=== PATIENT | female | born 1950 | race Caucasian/White ===

== ENCOUNTER 2020-09-27 15:00 | Outpatient (RCR) | payer MEDICARE, SELFPAY ==
--- NOTE | 2020-06-21 18:58 | ED_ITS ---
HPI - Psych General Source: patient and old records reviewed Mode of arrival: other (Telehealth OP appt.) Limitations: physical limitation (mobility, respiratory) History of Present Illness HPI Narrative: 70 yo female, hx of PTSD, Recurrent Major Depression, Severe. Pt sober from alcohol, cannabis for decades with a hx of strong participation in AA. Currently struggling with physical illness, knee pain, mobility issues. MD complaint: anxiety (worry about medical symptoms) Onset (ago): year(s) (issues with joint pain, mobility for several years.) Duration: changing over time Relieving factors: medication and therapy Exacerbating factors: other (stress) Associated psychiatric symptoms: depression Associated symptoms: shortness of breath, insomnia and other (reversal of her sleep cycle) Related Data Home Medications Medication Instructions Recorded Confirmed acetaminophen [Arthritis Pain mg PO 06/21/20 Relief (acetam)] albuterol sulfate 2 puff PO Q4H PRN 06/21/20 06/21/20 aspirin 1 tab PO DAILY 06/21/20 06/21/20 bupropion HCl tab PO 06/21/20 carvedilol 1 tab PO BID 06/21/20 06/21/20 cholecalciferol (vitamin D3) 1 tab PO DAILY 06/21/20 06/21/20 [Vitamin D3] fluticasone propion-salmeterol 2 puff PO BID 06/21/20 06/21/20 [Advair HFA] fluvoxamine 1 tab PO DAILY 06/21/20 06/21/20 ketoconazole applic TOPICAL 06/21/20 levothyroxine 1 tab PO DAILY 06/21/20 06/21/20 losartan 1 tab PO DAILY 06/21/20 06/21/20 montelukast 1 tab PO BEDTIME 06/21/20 06/21/20 prazosin 1 cap PO BID 06/21/20 06/21/20 rosuvastatin 1 tab PO DAILY 06/21/20 06/21/20 umeclidinium [Incruse Ellipta] 1 puff PO DAILY 06/21/20 06/21/20 Allergies Allergy/AdvReac Type Severity Reaction Status Date / Time lisinopril [LISINOPRIL] Allergy Intermediate RASH Unverified 06/07/20 16:18 quetiapine [From SEROQUEL] Allergy Intermediate RASH Unverified 06/07/20 16:18 sertraline [From ZOLOFT] Allergy Intermediate RASH, Unverified 06/07/20 16:18 DIZZINESS loratadine [From CLARITIN] Allergy Mild UNKNOWN Unverified 06/07/20 16:18 methimazole [From TAPAZOLE] Allergy Mild RASH Unverified 06/07/20 16:18 furosemide [Lasix] Allergy Unknown Verified 08/20/18 00:00 potassium chloride Allergy Unknown Verified 08/20/18 00:00 propranolol [PROPRANOLOL] AdvReac Severe anergy Unverified 06/07/20 16:18 Pt states no known food Allergy Unknown Uncoded 08/20/18 00:00 allerg Review of Systems Constitutional: Constitutional: Reports body ache(s) (Right leg-knee to calf), Reports difficulty sleeping (at times reverses cycle-sleeps during the day, awake at night), Reports poor appetite and Reports weight gain Cardiovascular: Cardiovascular: Reports claudication, Reports dyspnea and Reports dyspnea on exertion Respiratory: Respiratory: Reports dyspnea and Reports dyspnea on exertion Musculoskeletal: Musculoskeletal: Reports abnormal gait, Reports arthralgias (R Leg-knee to calf) and Reports stiffness Neurologic: Reports system reviewed and no additional complaints, except as documented and Reports abnormal gait Psychiatric: Psychiatric: Reports abnormal sleep pattern, Reports change in appetite and Reports other (R leg pain) [facility], [facility] Past Medical History Attestation statement: The following information was validated with the patient. Family History Family History (Updated 06/21/20 @ 19:48 by Nathalia Corrigan APRN) Other Depression Social History Social History (Updated 06/21/20 @ 19:49 by Nathalia Corrigan APRN) Household Members Other:: Lives with her cat Housing: Apartment Are you a primary customer care manager to a significant other at home: No Do you presently have visiting nurse or other home services: Yes Alcohol intake: former Smoking Status: Former smoker Tobacco Type: Cigarette Smoked in Last 30 Days: No Advance Directives: No Advance Directives Information Provided: No Physical Exam Vital Signs and I&O and Narrative: Sharon has been working with her medical team on her breathing and R Leg Pain (knee to calf). She reports PCP coverage has scheduled an echocardiogram. Also Meloxicam and Ibuprofen have been stopped due to CRF earlier this year Psych: Mental Status: mental status grossly normal Speech and movement: Clear speech present Affect: Blunted affect present Attitude: cooperative Thought process: Normal thought process present Thought content: Normal thought content present Insight: Good insight present (Psych) Judgement: Good judgement present (Psych) MDM - Psych Restraints Face to Face Assessment: Face to Face Assessment: Current Situation: After assessment of the patient, a review of the pertinent medical record and a discussion with nursing staff, I feel the patient requires a restrain intervention. Reaction To: [] Medical Condition: [] Behavioral State: [] Continued Need: [] Critical Care Time Critical Care Time Critical Care Time: No Discharge Plan Discharge Attending provider: Nathalia Corrigan Additional Instructions: Continue Wellbutrin, Prazosin, Luvox. Pt reports regime is useful in sx mgt. She reports no sx of depression increase. Sleep disturbance is mostly due to pain and discomfort. Follow up in 4 weeks-telehealth appt Call as needed. Current focus is respiratory eval and joint pain mgt. Medications: No Action carvedilol 25 mg tablet 1 tab PO BID RF: 0 acetaminophen [Arthritis Pain Relief (acetam)] 650 mg tablet extended release PO RF: 0 fluvoxamine 100 mg tablet 1 tab PO DAILY RF: 0 aspirin 81 mg tablet,chewable 1 tab PO DAILY RF: 0 montelukast 10 mg tablet 1 tab PO BEDTIME RF: 0 albuterol sulfate 90 mcg/actuation HFA aerosol inhaler 2 puff PO Q4H PRN (Reason: wheezing) RF: 0 ketoconazole 2 % cream topical RF: 0 losartan 100 mg tablet 1 tab PO DAILY RF: 0 prazosin 2 mg capsule 1 cap PO BID RF: 0 levothyroxine 112 mcg tablet 1 tab PO DAILY RF: 0 rosuvastatin 5 mg tablet 1 tab PO DAILY RF: 0 bupropion HCl 300 mg tablet extended release 24 hr PO RF: 0 Advair HFA 230-21 mcg/actuation HFA aerosol inhaler 2 puff PO BID RF: 0 cholecalciferol (vitamin D3) [Vitamin D3] 25 mcg (1,000 unit) tablet 1 tab PO DAILY RF: 0 Incruse Ellipta 62.5 mcg/actuation blister with device 1 puff PO DAILY RF: 0
--- NOTE | 2020-07-31 16:01 | HO.OPPROGNO ---
Subjective Subjective Date of Service: 07/31/20 Reason For Visit: F33.2, F43.10 Interim History: Pt is s/p medical admit for chest pain-she reports she checked out negative-heart, lungs. She reports they told her she had anxiety secondary to worry about COVID. Currently on Prednisone taper with obvious congestion. Pt has not been participating in psychotherapy for ~ 4 weeks-she does not find telehealth format helpful for psychotherapy. Pt is working with a emergency room clinician, finding it useful Reports depressive sx increase for ~3 weeks-not going out, amotivated, staying in bed-denies a precipitant, along with anxiety. Medication Compliance: Yes Side effects from medications: No Attending Groups: No (NA) Review of Systems Cardiovascular: Reports dyspnea and Reports dyspnea on exertion Respiratory: Reports chest congestion, Reports cough, Reports dyspnea, Reports dyspnea on exertion and Reports wheezing Comments: currently on Prednisone taper. Musculoskeletal: Reports abnormal gait Reports system reviewed and no additional complaints, except as documented and Reports abnormal gait Allergic/Immunologic: Reports wheezing Mental Status Exam Mental Status Exam Patient Orientation: Person, Place, Time and Situation Level of Consciousness: Awake, Appropriate and Alert Patient Behavior: Appropriate Mood Description: Depressed and Flat Affect Description: Flat Patient Cognition Impaired: No Ability to Follow Directions: Excellent Speech Pattern: Clear, Appropriate and Spontaneous Speech Memory Description: Intact Hallucinations: None Delusions: Not Present Thought Process: Intact Thought Content: positive for Intact Depressive Symptoms: Changes in Appetite, Sleeping More Than Usual, Loss of Int. in Activity, Feelings of Worthlessness, Hopelessness, Isolating-Friends/Family, Unhappiness, Increased Fatigue, Low Self Esteem and Loss of Energy Judgement: Fair Diagnostics Labs Labs: recent in pt medical stay 07/27- she reports with all diagnostics negative. Discharge Plan Discharge Attending provider: Nathalia Corrigan Additional Instructions: Continue Wellbutrin, Prazosin, Luvox. Pt reports regime is useful in sx mgt. She reports no sx of depression increase. Sleep disturbance is mostly due to pain and discomfort. Follow up in 4 weeks-telehealth appt Call as needed. Current focus is respiratory eval and joint pain mgt. 07/31/20: Increase fluvoxamine to 150 mg daily Re-start Abilify 2 mg daily Medications: New aripiprazole [Abilify] 2 mg tablet 2 mg PO DAILY Qty: 30 RF: 0 Continued prazosin 2 mg capsule 1 cap PO BID Qty: 180 RF: 0 No Action carvedilol 25 mg tablet 1 tab PO BID RF: 0 acetaminophen [Arthritis Pain Relief (acetam)] 650 mg tablet extended release PO RF: 0 fluvoxamine 100 mg tablet 1 tab PO DAILY RF: 0 aspirin 81 mg tablet,chewable 1 tab PO DAILY RF: 0 montelukast 10 mg tablet 1 tab PO BEDTIME RF: 0 albuterol sulfate 90 mcg/actuation HFA aerosol inhaler 2 puff PO Q4H PRN (Reason: wheezing) RF: 0 ketoconazole 2 % cream topical RF: 0 losartan 100 mg tablet 1 tab PO DAILY RF: 0 levothyroxine 112 mcg tablet 1 tab PO DAILY RF: 0 rosuvastatin 5 mg tablet 1 tab PO DAILY RF: 0 bupropion HCl 300 mg tablet extended release 24 hr PO RF: 0 Advair HFA 230-21 mcg/actuation HFA aerosol inhaler 2 puff PO BID RF: 0 cholecalciferol (vitamin D3) [Vitamin D3] 25 mcg (1,000 unit) tablet 1 tab PO DAILY RF: 0 Incruse Ellipta 62.5 mcg/actuation blister with device 1 puff PO DAILY RF: 0 Assessment & Plan Patient educated on: medication risk/benefits and therapeutic strategies Informed Consent: further education needed Reason for contiued therapy Substantial Risk for: med/psych decompensation Greater than 50% of the session was spent on counseling and/or coordination of care
--- NOTE | 2020-08-30 16:28 | P.PNPSO_ITS ---
Subjective Subjective Date of Service: 08/31/20 Reason For Visit: F33.2, F43.10 Interim History: Sharon reports sx are improved with addition of Abilify 2 mg daily. 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 Reports medical issues she is struggling with-bilateral pedal edema, and SOB with exertion-etiology not known, workup is negative thus far. She has had two sets of labs with her renal specialist and with her specialty development consultant and reports all are essentially WNL with exception of Creatinine of 1.2. Reports she has a new therapist and this is working well for her. Discussed concerns about her sister who has had an exac erbation of her PTSD and is refusing treatment Medication Compliance: Yes Side effects from medications: No Attending Groups: No (NA) Review of Systems Cardiovascular: Reports pedal edema (bilateral pedal edema) and Reports dyspnea on exertion Respiratory: Reports dyspnea on exertion Musculoskeletal: Reports abnormal gait Reports system reviewed and no additional complaints, except as documented and Reports abnormal gait Psychiatric: Reports no additional psychiatric complaints and Reports as per [facility] Mental Status Exam Mental Status Exam Patient Appearance: Well Grooomed and Appropriate Patient Orientation: Person, Place, Time and Situation Level of Consciousness: Awake, Appropriate and Alert Patient Behavior: Appropriate Mood Description: Calm Affect Description: Flat Patient Cognition Impaired: No Speech Pattern: Clear, Appropriate, Spontaneous Speech and Coherent Memory Description: Intact Hallucinations: None Delusions: Not Present Thought Process: Intact Thought Content: positive for Intact Depressive Symptoms: Changes in Appetite and Increased Fatigue Judgement: Good Diagnostics Labs Labs: Creatinine 1.2 per pt reports. Reports two sets of labs this week were essentially normal. Discharge Plan Discharge Attending provider: Nathalia Corrigan Additional Instructions: Continue Wellbutrin, Prazosin, Luvox. Pt reports regime is useful in sx mgt. She reports no sx of depression increase. Sleep disturbance is mostly due to pain and discomfort. Follow up in 4 weeks-telehealth appt Call as needed. Current focus is respiratory eval and joint pain mgt. 07/31/20: Increase fluvoxamine to 150 mg daily Re-start Abilify 2 mg daily Medications: New fluvoxamine 100 mg tablet 150 mg PO BEDTIME Qty: 135 RF: 0 Continued prazosin 2 mg capsule 1 cap PO BID Qty: 180 RF: 0 aripiprazole [Abilify] 2 mg tablet 2 mg PO DAILY Qty: 90 RF: 0 Changed bupropion HCl 300 mg tablet extended release 24 hr 1 tab PO DAILY Qty: 90 RF: 0 Discontinued fluvoxamine 100 mg tablet 1 tab PO DAILY RF: 0 No Action carvedilol 25 mg tablet 1 tab PO BID RF: 0 acetaminophen [Arthritis Pain Relief (acetam)] 650 mg tablet extended release PO RF: 0 aspirin 81 mg tablet,chewable 1 tab PO DAILY RF: 0 montelukast 10 mg tablet 1 tab PO BEDTIME RF: 0 albuterol sulfate 90 mcg/actuation HFA aerosol inhaler 2 puff PO Q4H PRN (Reason: wheezing) RF: 0 ketoconazole 2 % cream topical RF: 0 losartan 100 mg tablet 1 tab PO DAILY RF: 0 levothyroxine 112 mcg tablet 1 tab PO DAILY RF: 0 rosuvastatin 5 mg tablet 1 tab PO DAILY RF: 0 Advair HFA 230-21 mcg/actuation HFA aerosol inhaler 2 puff PO BID RF: 0 cholecalciferol (vitamin D3) [Vitamin D3] 25 mcg (1,000 unit) tablet 1 tab PO DAILY RF: 0 Incruse Ellipta 62.5 mcg/actuation blister with device 1 puff PO DAILY RF: 0 Assessment & Plan Assessment & Plan (1) Recurrent major depression-severe: Status: Acute Code(s): F33.2 - Major depressive disorder, recurrent severe without psychotic features Assessment and Plan: - Continue current regime. - Discussed clinic closing-pt will discuss psychopharmacology referral with her new therapist to maintain continuity. (2) PTSD (post-traumatic stress disorder): Status: Acute Code(s): F43.10 - Post-traumatic stress disorder, unspecified Greater than 50% of the session was spent on counseling and/or coordination of care Telehealth Telehealth Location of provider rendering services: practice address Location of patient: address on file Patient Identification confirmed using: Name, : Yes Telehealth method: video Patient verbally consented to treatment: Yes Patient verbally consented to billing insurance company: Yes Patient informed of any privacy concerns related to visit: Yes Time spent with patient (mins): 35
--- NOTE | 2020-09-06 08:23 | P.EN_ITS ---
Event Note Date of Service: 09/06/20 Event Note: [place] [facility] [place] She will begin to discuss options with her therapist and insurance provider.
--- NOTE | 2020-09-06 08:23 | PM.EVENT ---
Event Note Date of Service: 09/06/20 Event Note: Pt notified of [facility] [place] clinic closing on 08/30/20. She will begin to discuss options with her therapist and insurance provider.
== END 2020-11-18 23:55 | disposition home or self-care (01) ==
LOC: HO.PAOS 15:00
PROVIDERS: Visit Provider Clinical Nurse Specialist Psychiatric/Mental Health, Adult
DX: F33.2 Major depressive disorder, recurrent severe without psychotic features (principal); F43.10 Post-traumatic stress disorder, unspecified; Z79.899 Other long term (current) drug therapy
CPT/HCPCS: 99213; 99214

== ENCOUNTER 2022-02-19 13:48 | Emergency (ER) | payer MEDICARE, SELFPAY ==
--- NOTE | ~2022-02-19 | XR_ITS ---
EXAMINATION: XR CHEST CLINICAL INFORMATION: Weakness. COMPARISON: Chest x-ray 08/06/2018 TECHNIQUE: Frontal portable view of the chest was obtained. 2:29 PM FINDINGS: Low inspiratory effort. This causes crowding of the bronchovascular markings. Allowing for the low inspiratory effort there is no significant pulmonary vascular congestion. No focal consolidation. There is no pleural effusion and no pneumothorax. XR/XR chest 1V IMPRESSION: No acute abnormality of chest.
--- NOTE | ~2022-02-19 | CT_ITS ---
EXAMINATION: CT ABDOMEN AND PELVIS WITHOUT CONTRAST CLINICAL INFORMATION: Left lower quadrant pain COMPARISON: None TECHNIQUE: Multidetector volumetric imaging was performed from the superior aspect of the liver through the pubic symphysis. Sagittal and coronal reformatted images were obtained on the technologist's workstation. This CT examination was performed using dose optimization techniques as appropriate, variously including the following: *Automated exposure control *Adjustment of mA and/or kV according to patient size (this includes techniques or standardized protocols for targeted exams where dose is matched to indication/reason for exam; i.e. extremities or head) *Use of iterative reconstruction technique DLP: 1357 mGy-cm FINDINGS: LUNG BASES: The visualized lung bases are unremarkable. Bibasilar atelectasis is present. Left hemidiaphragm is elevated. LIVER, GALLBLADDER, AND BILIARY TREE: The liver is normal in size, shape, and attenuation. No focal hepatic lesion or biliary ductal dilatation is present. The gallbladder is unremarkable with no evidence of radiopaque gallstones, gallbladder wall thickening, or obvious pericholecystic inflammatory changes. PANCREAS: Unremarkable. SPLEEN: Unremarkable. ADRENAL GLANDS: Unremarkable. KIDNEYS AND URETERS: The kidneys are normal in size, shape, and attenuation. No hydronephrosis, hydroureter, or calculi seen. There is a 2.3 cm mass present in the lower pole of the right kidney which measures fat density although I do not think that this is accurate and this most likely represents a cyst. The worrisome renal mass. BLADDER: Unremarkable. GASTROINTESTINAL TRACT: The small and large bowel are unremarkable aside from colonic diverticula without diverticulitis. The appendix is unremarkable. ABDOMINAL WALL: No significant hernia is appreciated. LYMPH NODES: Normal. VASCULAR: Unremarkable. PELVIC VISCERA: An anteverted uterus is present with calcifications consistent with old fibroids. An abnormal adnexal mass tibial fluid is not seen. OSSEOUS STRUCTURES: Mild degenerative changes present in the spine. No bony destructive lesions are seen. CT/CT abdomen pelvis wo con IMPRESSION: A cause for the patient's acute left lower quadrant pain has not been found. There is colonic diverticulosis without diverticulitis. Other incidental findings as above. Fleischner guidelines were followed.
[2022-02-19 14:08] VITALS: BP 195/85; PULSE 100; PULSE 105; RESP 19; TEMP 37.2; O2SAT 92; O2SAT 95; BMI 54.0
--- NOTE | 2022-02-19 14:22 | ECG_ITS ---
Test Reason : WEAKNESS Blood Pressure : / mmHG Vent. Rate : 099 BPM Atrial Rate : 099 BPM P-R Int : 196 ms QRS Dur : 102 ms QT Int : 356 ms P-R-T Axes : 062 017 030 degrees QTc Int : 456 ms Normal sinus rhythm Possible Left atrial enlargement Borderline ECG When compared with ECG of 07-AUG-2018 07:41, No significant change was found Referred By: Edgar Mendoza Electronically Signed By:JHON BOSE MD
--- NOTE | 2022-02-19 14:24 | ED_ITS ---
HPI - General Adult General Chief complaint: General Medical Stated complaint: Dizziness with weakness Time Seen by Provider: 02/19/22 14:08 Source: patient and old records reviewed History of Present Illness HPI narrative: Patient states for the last 2 days she has been having general malaise. She states nausea with vomiting yesterday. Some nausea this morning. No diarrhea. Positive cough. Feels congested but not bringing up phlegm. No documented fevers but has been feeling hot. No sick contacts She is vaccinated with Moderna x 4 against COVID. She has had her annual flu vaccine. No prior history of similar issues. She states she has been feeling dizzy. She describes it as lightheaded. It is not particularly affected by movement or standing. No syncope. No sensation of room spinning or balance issues. Related Data Home Medications Medication Instructions Recorded Confirmed acetaminophen 650 mg mg PO 06/21/20 tablet,extended release (Arthritis Pain Relief (acetaminophen) ER) albuterol sulfate 90 mcg/actuation 2 puff PO Q4H PRN 06/21/20 06/21/20 aerosol inhaler aspirin 81 mg chewable tablet 1 tab PO DAILY 06/21/20 06/21/20 carvedilol 25 mg tablet 1 tab PO BID 06/21/20 06/21/20 cholecalciferol (vitamin D3) 25 1 tab PO DAILY 06/21/20 06/21/20 mcg (1,000 unit) tablet (Vitamin D3) fluticasone propionate 230 2 puff PO BID 06/21/20 06/21/20 mcg-salmeterol 21 mcg/actuation HFA inhaler (Advair HFA) ketoconazole 2 % topical cream applic TOPICAL 06/21/20 levothyroxine 112 mcg tablet 1 tab PO DAILY 06/21/20 06/21/20 losartan 100 mg tablet 1 tab PO DAILY 06/21/20 06/21/20 montelukast 10 mg tablet 1 tab PO BEDTIME 06/21/20 06/21/20 rosuvastatin 5 mg tablet 1 tab PO DAILY 06/21/20 06/21/20 umeclidinium 62.5 mcg/actuation 1 puff PO DAILY 06/21/20 06/21/20 blister powder for inhalation (Incruse Ellipta) Previous Rx's Medication Instructions Recorded bupropion HCl 300 mg 24 hr tablet, 1 tab PO DAILY #90 tab 10/22/20 extended release fluvoxamine 100 mg tablet 150 mg PO BEDTIME #135 tab 10/22/20 aripiprazole 2 mg tablet (Abilify) 2 mg PO DAILY #90 tab 11/07/20 hydroxyzine HCl 50 mg tablet 50 mg PO DAILY PRN #90 tab 12/17/20 fluconazole 150 mg tablet 150 mg PO DAILY #1 tab 02/19/22 (Diflucan) potassium chloride 10 mEq 10 meq PO DAILY #10 tab 02/19/22 tablet,extended release Allergies Allergy/AdvReac Type Severity Reaction Status Date / Time lisinopril [LISINOPRIL] Allergy Intermediate RASH Unverified 06/07/20 16:18 quetiapine [From SEROQUEL] Allergy Intermediate RASH Unverified 06/07/20 16:18 sertraline [From ZOLOFT] Allergy Intermediate RASH, Unverified 06/07/20 16:18 DIZZINESS loratadine [From CLARITIN] Allergy Mild UNKNOWN Unverified 06/07/20 16:18 methimazole [From TAPAZOLE] Allergy Mild RASH Unverified 06/07/20 16:18 furosemide [Lasix] Allergy Unknown Verified 08/20/18 00:00 potassium chloride Allergy Unknown Verified 08/20/18 00:00 propranolol [PROPRANOLOL] AdvReac Severe anergy Unverified 06/07/20 16:18 Pt states no known food Allergy Unknown Uncoded 08/20/18 00:00 allerg Review of Systems Constitutional: Comments: Feeling hot without documented fevers. Generally weak. Respiratory: Comments: Cough without sputum Gastrointestinal: Comments: Nausea and vomiting without diarrhea. No abdominal pain Genitourinary: Comments: No urinary symptoms Integumentary/Breasts: Comments: No new rash. History of cutaneous candidiasis and folds of the pannus Neurologic: Comments: No focal weakness. She states she typically ambulates with a walker and is still able ambulate today even with the weakness sensation PMFSH Past Medical History Medical History (Updated 02/19/22 @ 20:27 by Edgar Mendoza MD) PTSD (post-traumatic stress disorder) Recurrent major depression-severe Family History Family History (Updated 06/21/20 @ 19:48 by Nathalia Vaughn APRN) Other Depression Social History Social History (Updated 06/21/20 @ 19:49 by MARK Ramos Household Members Other:: Lives with her cat Housing: Apartment Are you a primary respiratory care instructor to a significant other at home: No Do you presently have visiting nurse or other home services: Yes Alcohol intake: former Advance Directives: No Advance Directives Information Provided: Yes Physical Exam ED Vital Signs: Vital Signs - 24 hr 02/19/22 14:08 02/19/22 15:45 02/19/22 16:18 Temperature 98.9 F 98.2 F Pulse Rate 105 H 103 H 101 H Respiratory Rate 19 15 15 Blood Pressure 195/85 H 141/74 H 122/62 Pulse Oximetry 95 96 96 BMI result Body Mass Index 54.0 Const Other: Awake and alert in no acute distress Resp Other: No respiratory distress. Clear and equal bilaterally Cardio Other: Regular rhythm. Mildly tachycardic. No murmurs rubs or gallops GI Other: Abdomen is soft and nontender. Normal bowel sounds Skin Other: Warm pink and dry. Rash consistent with cutaneous candidiasis in skin folds and groin and sub pannus Neuro Other: No focal neurologic deficits. No facial droop. No pronator drift. Speech is normal Course Course Course Narrative: Generalized weakness in the setting of cough with nausea and vomiting. Likely viral syndrome. Possible dehydration COVID-19 infection or influenza both possible. Will treat IV fluids. IV Zofran. Patient with continued abdominal pain. On re-evaluation she is now tender mostly in her left mid to low abdomen. CT scan added 20:25. Patient's CT scan is normal. Remainder of labs are relatively unremarkable. Potassium is mildly low at 3.2. Creatinine is 1.13. LFTs are normal. TSH is elevated at 6.99 but T4 is normal at 1.34. Patient is feeling better at this time. Tolerating p.o. liquids. Stable for discharge home with a final diagnosis of viral syndrome, cutaneous candidiasis, hypokalemia Medical Decision Making Lab Data Result diagrams: 02/19/22 14:56 02/19/22 19:10 Labs: Lab Results 02/19/22 02/19/22 02/19/22 Range/Units 14:55 14:55 14:55 WBC (4.8-10.8) X10*3/uL RBC (4.20-5.50) X10*6/uL Hgb (12.0-16.0) g/dl Hct (37.0-47.0) % MCV (80.0-98.0) fL MCH (27.0-33.0) pg MCHC (31.0-35.0) g/dl RDW (11.0-16.0) % Plt Count (160-400) X10*3/uL MPV (9.4-12.3) fL Immature Gran % (Auto) (0.0-0.4) % Neut % (Auto) (45-73) % Lymph % (Auto) (20-40) % [place] % (Auto) (2-11) % Eos % (Auto) (0-4) % Baso % (Auto) (0-2) % Lymph # (Auto) (1.2-4.9) X10*3/uL [place] # (Auto) (0.1-1.2) X10*3/uL Eos # (Auto) (0.0-0.4) X10*3/uL Baso # (Auto) (0.0-0.2) X10*3/uL Abs Immat Gran (auto) (0.00-0.03) X10*3/uL Absolute Neuts (auto) (2.0-8.3) x10*3/uL Absolute Nucleated RBC (0.0-0.012) X10*3/uL Nucleated RBC % (auto) (0.0-0.2) /100WBC D-Dimer High Sensitivty 342 NG/ML Sodium (135-145) mmol/L Potassium (3.3-5.1) mmol/L Chloride (96-108) mmol/L Carbon Dioxide (22-29) mmol/L Anion Gap (12-20) BUN (9-16) mg/dL Creatinine (0.5-1.4) mg/dL Estim Creat Clear Calc Estimated GFR Random Glucose (60-115) mg/dL Lactic Acid 1.4 (0.5-2.0) mmol/L Calcium (8.4-10.2) mg/dL Total Bilirubin (0.0-1.0) mg/dL AST (5-31) U/L ALT (0-31) U/L Alkaline Phosphatase (39-117) U/L Troponin I High Sens (<3.5-17.0) ng/L B-Natriuretic Peptide (<100) pg/mL Total Protein (6.5-8.0) g/dL Albumin (3.5-5.0) g/dL Lipase 44 (8-78) U/L TSH 6.99 H (0.32-4.0) uIU/mL Free T4 1.34 (0.71-1.85) ng/dL Urine Color Urine Appearance Urine pH (5.0-8.0) Ur Specific [place] (1.005-1.025) Urine Protein (NEG-TRACE) MG/DL Urine Glucose (UA) (NEG) MG/DL Urine Ketones (NEG) MG/DL Urine Blood (NEG) Urine Nitrite (NEG) Ur Leukocyte Esterase (NEG) Urine RBC (0) /HPF Urine WBC (0-4) /HPF Ur Squamous Epith Cells /LPF Urine Bacteria /LPF Influenza Type A (PCR) (Negative) Influenza Type B (PCR) (Negative) RSV RNA Qual (PCR) (Negative) SARS-CoV-2 RNA (RT-PCR) (Negative) 02/19/22 02/19/22 02/19/22 Range/Units 14:56 14:56 15:05 WBC 7.1 (4.8-10.8) X10*3/uL RBC 5.41 (4.20-5.50) X10*6/uL Hgb 14.5 (12.0-16.0) g/dl Hct 45.4 (37.0-47.0) % MCV 83.9 (80.0-98.0) fL MCH 26.8 L (27.0-33.0) pg MCHC 31.9 (31.0-35.0) g/dl RDW 14.2 (11.0-16.0) % Plt Count 244 (160-400) X10*3/uL MPV 11.2 (9.4-12.3) fL Immature Gran % (Auto) 0.4 (0.0-0.4) % Neut % (Auto) 72.1 (45-73) % Lymph % (Auto) 17.0 L (20-40) % [place] % (Auto) 7.9 (2-11) % Eos % (Auto) 2.0 (0-4) % Baso % (Auto) 0.6 (0-2) % Lymph # (Auto) 1.2 (1.2-4.9) X10*3/uL [place] # (Auto) 0.6 (0.1-1.2) X10*3/uL Eos # (Auto) 0.1 (0.0-0.4) X10*3/uL Baso # (Auto) 0.0 (0.0-0.2) X10*3/uL Abs Immat Gran (auto) 0.03 (0.00-0.03) X10*3/uL Absolute Neuts (auto) 5.1 (2.0-8.3) x10*3/uL Absolute Nucleated RBC 0.000 (0.0-0.012) X10*3/uL Nucleated RBC % (auto) 0.0 (0.0-0.2) /100WBC D-Dimer High Sensitivty NG/ML Sodium (135-145) mmol/L Potassium (3.3-5.1) mmol/L Chloride (96-108) mmol/L Carbon Dioxide (22-29) mmol/L Anion Gap (12-20) BUN (9-16) mg/dL Creatinine (0.5-1.4) mg/dL Estim Creat Clear Calc Estimated GFR Random Glucose (60-115) mg/dL Lactic Acid (0.5-2.0) mmol/L Calcium (8.4-10.2) mg/dL Total Bilirubin (0.0-1.0) mg/dL AST (5-31) U/L ALT (0-31) U/L Alkaline Phosphatase (39-117) U/L Troponin I High Sens 16.3 (<3.5-17.0) ng/L B-Natriuretic Peptide 74 (<100) pg/mL Total Protein (6.5-8.0) g/dL Albumin (3.5-5.0) g/dL Lipase (8-78) U/L TSH (0.32-4.0) uIU/mL Free T4 (0.71-1.85) ng/dL Urine Color Urine Appearance Urine pH (5.0-8.0) Ur Specific [place] (1.005-1.025) Urine Protein (NEG-TRACE) MG/DL Urine Glucose (UA) (NEG) MG/DL Urine Ketones (NEG) MG/DL Urine Blood (NEG) Urine Nitrite (NEG) Ur Leukocyte Esterase (NEG) Urine RBC (0) /HPF Urine WBC (0-4) /HPF Ur Squamous Epith Cells /LPF Urine Bacteria /LPF Influenza Type A (PCR) NEGATIVE (Negative) Influenza Type B (PCR) NEGATIVE (Negative) RSV RNA Qual (PCR) NEGATIVE (Negative) SARS-CoV-2 RNA (RT-PCR) NEGATIVE (Negative) 02/19/22 02/19/22 Range/Units 19:10 19:10 WBC (4.8-10.8) X10*3/uL RBC (4.20-5.50) X10*6/uL Hgb (12.0-16.0) g/dl Hct (37.0-47.0) % MCV (80.0-98.0) fL MCH (27.0-33.0) pg MCHC (31.0-35.0) g/dl RDW (11.0-16.0) % Plt Count (160-400) X10*3/uL MPV (9.4-12.3) fL Immature Gran % (Auto) (0.0-0.4) % Neut % (Auto) (45-73) % Lymph % (Auto) (20-40) % [place] % (Auto) (2-11) % Eos % (Auto) (0-4) % Baso % (Auto) (0-2) % Lymph # (Auto) (1.2-4.9) X10*3/uL [place] # (Auto) (0.1-1.2) X10*3/uL Eos # (Auto) (0.0-0.4) X10*3/uL Baso # (Auto) (0.0-0.2) X10*3/uL Abs Immat Gran (auto) (0.00-0.03) X10*3/uL Absolute Neuts (auto) (2.0-8.3) x10*3/uL Absolute Nucleated RBC (0.0-0.012) X10*3/uL Nucleated RBC % (auto) (0.0-0.2) /100WBC D-Dimer High Sensitivty NG/ML Sodium 143 (135-145) mmol/L Potassium 3.2 L (3.3-5.1) mmol/L Chloride 100 (96-108) mmol/L Carbon Dioxide 29 (22-29) mmol/L Anion Gap 17 (12-20) BUN 44 H (9-16) mg/dL Creatinine 1.13 (0.5-1.4) mg/dL Estim Creat Clear Calc 62.5 Estimated GFR 47 Random Glucose 147 H (60-115) mg/dL Lactic Acid (0.5-2.0) mmol/L Calcium 12.0 H (8.4-10.2) mg/dL Total Bilirubin 0.5 (0.0-1.0) mg/dL AST 23 (5-31) U/L ALT 15 (0-31) U/L Alkaline Phosphatase 61 (39-117) U/L Troponin I High Sens (<3.5-17.0) ng/L B-Natriuretic Peptide (<100) pg/mL Total Protein 7.7 (6.5-8.0) g/dL Albumin 4.8 (3.5-5.0) g/dL Lipase (8-78) U/L TSH (0.32-4.0) uIU/mL Free T4 (0.71-1.85) ng/dL Urine Color YELLOW Urine Appearance CLEAR Urine pH 6.5 (5.0-8.0) Ur Specific [place] 1.010 (1.005-1.025) Urine Protein NEG (NEG-TRACE) MG/DL Urine Glucose (UA) NEG (NEG) MG/DL Urine Ketones NEG (NEG) MG/DL Urine Blood TRACE (NEG) Urine Nitrite NEG (NEG) Ur Leukocyte Esterase 1+ H (NEG) Urine RBC 1-4 (0) /HPF Urine WBC 1-4 (0-4) /HPF Ur Squamous Epith Cells TRACE /LPF Urine Bacteria TRACE /LPF Influenza Type A (PCR) (Negative) Influenza Type B (PCR) (Negative) RSV RNA Qual (PCR) (Negative) SARS-CoV-2 RNA (RT-PCR) (Negative) Discharge Plan Discharge Clinical Impression: Candidiasis of skin, Acute hypokalemia, Acute viral syndrome Patient Disposition: Home, Self-Care Instructions: Hypokalemia (ED), Viral Syndrome (ED), Skin Yeast Infection (ED) Prescriptions: New fluconazole [Diflucan] 150 mg tablet 150 mg PO DAILY Qty: 1 0RF potassium chloride 10 mEq tablet extended release 10 meq PO DAILY Qty: 10 0RF No Action carvedilol 25 mg tablet 1 tab PO BID 0RF acetaminophen [Arthritis Pain Relief (acetam)] 650 mg tablet extended release PO 0RF aspirin 81 mg tablet,chewable 1 tab PO DAILY 0RF montelukast 10 mg tablet 1 tab PO BEDTIME 0RF albuterol sulfate 90 mcg/actuation HFA aerosol inhaler 2 puff PO Q4H PRN (Reason: wheezing) 0RF ketoconazole 2 % cream topical 0RF losartan 100 mg tablet 1 tab PO DAILY 0RF levothyroxine 112 mcg tablet 1 tab PO DAILY 0RF rosuvastatin 5 mg tablet 1 tab PO DAILY 0RF Advair HFA 230-21 mcg/actuation HFA aerosol inhaler 2 puff PO BID 0RF cholecalciferol (vitamin D3) [Vitamin D3] 25 mcg (1,000 unit) tablet 1 tab PO DAILY 0RF Incruse Ellipta 62.5 mcg/actuation blister with device 1 puff PO DAILY 0RF fluvoxamine 100 mg tablet 150 mg PO BEDTIME Qty: 135 0RF bupropion HCl 300 mg tablet extended release 24 hr 1 tab PO DAILY Qty: 90 0RF aripiprazole [Abilify] 2 mg tablet 2 mg PO DAILY Qty: 90 0RF hydroxyzine HCl 50 mg tablet 50 mg PO DAILY PRN (Reason: anxiety) Qty: 90 0RF
[2022-02-19] MEDS: ondansetron HCL 4 MG/2 ML VIAL IVPUSH (14:39)
[2022-02-19] MEDS: 0.9 % Sodium Chloride 500 ML IV (14:41)
--- NOTE | 2022-02-19 14:49 | PC.NURSE ---
bilateral pitting edema noted. 3plus
--- NOTE | 2022-02-19 14:51 | PC.NURSE ---
lungs are clear but diminished throughout.
[2022-02-19 15:03] LABS: MANUAL DIFF FLAG NO
[2022-02-19 15:12] LABS: D Dimer High Sensitivity 342 NG/ML
[2022-02-19 15:16] LABS: Basophils Percent Auto 0.6 % (0-2); Eosinophils Absolute Auto 0.1 X10*3/uL (0.0-0.4); Hematocrit 45.4 % (37.0-47.0); Hemoglobin 14.5 g/dl (12.0-16.0); Imm Gran Abs Auto 0.03 X10*3/uL (0.00-0.03); Imm Gran Pct Auto 0.4 % (0.0-0.4); Lymphocytes Absolute Auto 1.2 X10*3/uL (1.2-4.9); Mean Corpuscular HGB Conc 31.9 g/dl (31.0-35.0); Mean Corpuscular Hemoglobin 26.8 pg (27.0-33.0); Mean Corpuscular Volume 83.9 fL (80.0-98.0); Mean Platelet Volume 11.2 fL (9.4-12.3); Monocytes Absolute Auto 0.6 X10*3/uL (0.1-1.2); Monocytes Percent Auto 7.9 % (2-11); Neutrophils Absolute Auto 5.1 x10*3/uL (2.0-8.3); Neutrophils Percent Auto 72.1 % (45-73); Platelet Count 244 X10*3/uL (160-400); Red Blood Count 5.41 X10*6/uL (4.20-5.50); Red Cell Distribution Width 14.2 % (11.0-16.0); White Blood Count 7.1 X10*3/uL (4.8-10.8)
[2022-02-19 15:17] LABS: Lactic Acid 1.4 mmol/L (0.5-2.0)
[2022-02-19 15:21] LABS: Lipase 44 U/L (8-78)
[2022-02-19 15:27] LABS: B Type Natriuretic Peptide 74 pg/mL (<100); Troponin-I High Sensitivity 16.3 ng/L (<3.5-17.0)
[2022-02-19 15:42] LABS: TSH reflex Free T4 6.99 uIU/mL (0.32-4.0)
[2022-02-19 15:45] VITALS: BP 141/74; PULSE 103; RESP 15; O2SAT 96
[2022-02-19 15:46] LABS: Influenza A PCR NEGATIVE (Negative); Influenza B PCR NEGATIVE (Negative); Resp Syncy Virus RNA Qual PCR NEGATIVE (Negative); SARS COV2 PCR INHOUSE NEGATIVE (Negative)
[2022-02-19 16:18] VITALS: BP 122/62; PULSE 101; RESP 15; TEMP 36.8; O2SAT 96
[2022-02-19 16:27] LABS: Free T4 (Free Thyroxine) 1.34 ng/dL (0.71-1.85)
[2022-02-19 19:47] LABS: Appearance Urine CLEAR; Color Urine YELLOW; Glucose Urine UA NEG (NEG); Leukocyte Esterase Urine 1+ (NEG); Nitrite Urine NEG (NEG); PH 6.5 (5.0-8.0); UACC Culture Trigger YES; Urine Blood TRACE (NEG); Urine Ketones NEG (NEG); Urine Protein NEG (NEG-TRACE)
[2022-02-19 19:57] LABS: Squamous Epithelial Cell Urine TRACE /LPF
[2022-02-19 19:58] LABS: Bacteria Urine TRACE /LPF
[2022-02-19 20:06] LABS: Alanine Aminotransferase 15 U/L (0-31); Albumin Level 4.8 g/dL (3.5-5.0); Alkaline Phosphatase 61 U/L (39-117); Anion Gap 17 (12-20); Aspartate Amino Transferase 23 U/L (5-31); Bilirubin Total 0.5 mg/dL (0.0-1.0); Blood Urea Nitrogen 44 mg/dL (9-16); Carbon Dioxide 29 mmol/L (22-29); Chloride 100 mmol/L (96-108); Creatinine Clr Calc Pharmacy 62.5; Estimated Glomerular Filt Rate 47; Glucose Random 147 mg/dL (60-115); Potassium 3.2 mmol/L (3.3-5.1); Sodium 143 mmol/L (135-145); Total Protein 7.7 g/dL (6.5-8.0)
--- NOTE | 2022-02-19 20:55 | MHC.CM.ED ---
Pt ready for discharge and CM consulted at request of Dr. Mendoza regarding ? PT at home. Pt is A&Ox4. Lives alone in elderly housing. 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 SOAKING PIT OPERATOR assist with cooking, cleaning, ADL's, & shopping. Pt has a operations supervisor 2nd shift at [facility]. Pt plans to call her tomorrow. Tells CM she has had PT at home in the past with [facility]. Pt feels very confident in her ability to work with her [facility] operations supervisor 2nd shift to get any needed services. Given CM contact card if she feels she needs services. Fully vax/boosted x2. Uses a walker /cane. Pt very comfortable with d/c home. CM to follow for any d/c needs. Dr. Mendoza aware of above conversation.
== END 2022-02-19 21:11 | disposition home or self-care (01) ==
PROVIDERS: Emergency Provider Emergency Medicine; PCP Pediatrics
DX: B34.9 Viral infection, unspecified (principal); B37.2 Candidiasis of skin and nail; E87.6 Hypokalemia; R10.9 Unspecified abdominal pain; Z20.822 Contact with and (suspected) exposure to COVID-19
CPT/HCPCS: 0241U; 36415; 71045; 74176; 80053; 81001; 83605; 83690; 83880; 84439; 84443; 84484; 85025; 85379; 87040; 87086; 93005; 96361; 96374; 99284; J2405

== ENCOUNTER 2023-03-25 19:45 | Emergency (ER) | payer MEDICARE, SELFPAY ==
[2023-03-25 19:53] VITALS: BP 156/79; BP 179/99; PULSE 88; RESP 18; TEMP 37; O2SAT 100; O2SAT 98; BMI 52.1
--- NOTE | 2023-03-25 20:00 | PC.NURSE ---
Pt to ED for a mechanical fall. Pt states she was using her walker as she always does and had tripped on the metal strip that is the door from kitchen to the living room. Pt claims she fell towards the couch and landed on her left side, and was unable to get up on her own. Pt is unsure if she struck her head when she fell into the couch. Pt denies any LOC or use of anticoagulants. When EMS arrived at the house, pt was unable to get onto the stretcher on her own and required the assistance of 3 welder repair to help her. Pts main concern in the ED is the pain to the left shoulder and upper arm, left lateral chest/ribs, in addition to left leg pain from her hip down to the knees. MD made aware of pts concerns.
[2023-03-25 20:19] VITALS: BP 159/86; PULSE 85; PULSE 88; RESP 16; RESP 18; TEMP 37; O2SAT 100; O2SAT 99
[2023-03-25 20:39] VITALS: BP 164/72; PULSE 84; RESP 16; O2SAT 95
--- NOTE | 2023-03-25 22:21 | ED.FALL ---
HPI - Fall General Chief Complaint: Fall Stated Complaint: FALL left rib pain with knee pain Time Seen by Provider: 03/25/23 20:43 Source: patient Mode of arrival: EMS Limitations: no limitations History of Present Illness HPI Narrative: Patient is a 73-year-old female who presents emergency department for evaluation after mechanical fall. She was using her walker as she does at baseline, reporting that she tripped on the metal strip that is the door from kitchen to the living room. She fell towards the couch and wall landing on her left side, and states that she was unable to get up on her own. When asked she is uncertain whether she struck her head. However she denies any loss of consciousness or use of anticoagulants. She reports requiring EMS assistance to get onto the stretcher. She is complaining of pain to the left shoulder and upper arm, left lateral chest/ribs, in addition to left leg pain from her hip down to the knee. Related Data Home Medications Medication Instructions Recorded Confirmed albuterol sulfate 90 mcg/actuation 2 puff PO Q4H PRN wheezing 06/21/20 03/26/23 aerosol inhaler aspirin 81 mg chewable tablet 1 tab PO DAILY 06/21/20 03/26/23 carvedilol 25 mg tablet 1 tab PO BID 06/21/20 03/26/23 cholecalciferol (vitamin D3) 25 1 tab PO DAILY 06/21/20 03/26/23 mcg (1,000 unit) tablet (Vitamin D3) losartan 100 mg tablet 1 tab PO DAILY 06/21/20 03/26/23 rosuvastatin 5 mg tablet 1 tab PO BEDTIME 06/21/20 03/26/23 allopurinol 100 mg tablet 100 mg PO DAILY 03/26/23 03/26/23 amlodipine 10 mg tablet 10 mg PO DAILY 03/26/23 03/26/23 aripiprazole 5 mg tablet 10 mg PO DAILY 03/26/23 03/26/23 baclofen 10 mg tablet 10 mg PO TID PRN Muscle Spasm 03/26/23 03/26/23 clotrimazole 1 % topical cream 1 appl topical DAILY PRN Rash 03/26/23 03/26/23 dapagliflozin propanediol 10 mg 10 mg PO DAILY 03/26/23 03/26/23 tablet (Farxiga) estradiol 0.01% (0.1 mg/gram) 1 appl vaginal Q OTHER DAY 03/26/23 03/26/23 vaginal cream fluticasone fur. 200 mcg-umeclid 1 ea inhalation DAILY 03/26/23 03/26/23 62.5 mcg-vilant 25 mcg inhalat.powder (Trelegy Ellipta) fluvoxamine 100 mg tablet 300 mg PO BEDTIME 03/26/23 03/26/23 gabapentin 100 mg capsule 200 mg PO DAILY@1200 03/26/23 03/26/23 gabapentin 100 mg capsule 300 mg PO BEDTIME 03/26/23 03/26/23 ketoconazole 2 % topical cream 1 appl topical DAILY 03/26/23 03/26/23 levothyroxine 137 mcg tablet 137 mcg PO DAILY@0600 03/26/23 03/26/23 nystatin 100,000 unit/gram topical 1 appl topical BID PRN Rash 03/26/23 03/26/23 powder simethicone 125 mg chewable tablet 125 mg PO QIDWMHS PRN gas 03/26/23 03/26/23 torsemide 20 mg tablet 20 mg PO BID@0900,1600 03/26/23 03/26/23 Previous Rx's Medication Instructions Recorded bupropion HCl 300 mg 24 hr tablet, 1 tab PO DAILY #90 tabs 10/22/20 extended release hydroxyzine HCl 50 mg tablet 50 mg PO DAILY PRN anxiety #90 tabs 12/17/20 Allergies Allergy/AdvReac Type Severity Reaction Status Date / Time lisinopril [LISINOPRIL] Allergy Intermediate RASH Unverified 06/07/20 16:18 quetiapine [From SEROQUEL] Allergy Intermediate RASH Unverified 06/07/20 16:18 sertraline [From ZOLOFT] Allergy Intermediate RASH, Unverified 06/07/20 16:18 DIZZINESS loratadine [From CLARITIN] Allergy Mild UNKNOWN Unverified 06/07/20 16:18 methimazole [From TAPAZOLE] Allergy Mild RASH Unverified 06/07/20 16:18 furosemide [Lasix] Allergy Unknown Verified 08/20/18 00:00 potassium chloride Allergy Unknown Verified 08/20/18 00:00 propranolol [PROPRANOLOL] AdvReac Severe anergy Unverified 06/07/20 16:18 Pt states no known food Allergy Unknown Uncoded 08/20/18 00:00 allerg Review of Systems Review of Systems: Constitutional: No weight loss, fever, chills, weakness or fatigue. Skin: No rash or itching. Cardiovascular: No chest pain, chest pressure or chest discomfort. No palpitations Respiratory: No shortness of breath, cough or sputum production. Gastrointestinal: No nausea, vomiting or diarrhea. No abdominal pain Genitourinary: No burning micturition. No urinary frequency or incontinence. Musculoskeletal: Joint extremity pain as per HPI Psychiatric: No depression or anxiety. Yes all other systems are reviewed and are negative [facility] Past Medical History Attestation statement: The following information was validated with the patient. Source: old records reviewed Medical History PTSD (post-traumatic stress disorder) Recurrent major depression-severe Family History Family History (Updated 06/21/20 @ 19:48 by Nathalia Vaughn APRN) Other Depression Social History Social History (Updated 06/21/20 @ 19:49 by Nathalia Vaughn APRN) Household Members Other:: Lives with her cat Housing: Apartment Are you a primary home care manager rn to a significant other at home: No Do you presently have visiting nurse or other home services: Yes Alcohol intake: never Smoked in Last 30 Days: No Use of substances other than those prescribed or required for medical reasons: No Advance Directives: Yes Advance Directives on File: Yes Advance Directives Date on File: 03/26/23 Physical Exam Vital Signs: Vital Signs: Last Vital Signs Temp 98.6 F 03/26/23 06:00 Pulse 93 03/26/23 09:23 Resp 18 03/26/23 12:00 BP 119/52 L 03/26/23 12:00 Pulse Ox 95 03/26/23 12:00 O2 Del Method Room Air 03/26/23 12:00 BMI result Body Mass Index 52.1 Appearance: Alert.?Oriented to person, place and time. No acute distress.?Normal affect. Eyes: Pupils equal, round and reactive to light.? ENT: Pharynx normal.?? Neck: Normal inspection.? Neck supple.?? CVS: Heart sounds normal. Normal heart rate and rhythm.? Pulses normal.?? Respiratory: No respiratory distress.? Lung sounds clear to auscultation bilaterally?? Abdomen: Soft and non-tender. Normoactive bowel sounds. No pulsatile mass.?? Skin: Skin warm and dry.? Normal skin color.? Normal skin turgor.?? Extremities: Decreased AROM to the left shoulder with diffuse tenderness upon palpation. Left lateral chest wall tenderness upon palpation. Pain to the left lower extremity as per HPI, however with assistance able to get out of bed to the commode and weightbear with assist Neuro: Moves all extremities spontaneously. Sensation intact bilaterally. CN II-XII intact. No focal neuro deficits. Course Reevaluation(s) Reevaluation #1: EKG revealing normal sinus rhythm with presence of Q-waves in V1-V2. CBC and BMP are overall unremarkable. CT of the head reveals no acute intracranial pathology. X-ray imaging of the left and pelvis is not reveal any acute fracture or dislocation. XR imaging reveals a concern for nondisplaced fracture of the anterior 7th rib in one view though not appreciated in other views. She does have tenderness upon palpation of this area, concerning for acute fracture. Provided with incentive spirometer and educated on usage. Time: 22:31 Reevaluation #2: Patient was able to ambulate a short distance with walker, however she was unable to get back into the bed without assistance. She does not feel comfortable returning home today as she has concerns given that she lives alone. Patient placed in physician observation at this time, so that physical therapy evaluation can be obtained in the morning and will place consult for case management. Patient is agreeable with this plan of care. Time: 00:56 Reevaluation #3: 03/26/2023 0953: Physician observation continues. Patient is being followed by case management. 03/26/2023 1105: Patient will be discharged home with physical therapy. Patient's urine shows evidence of a possible UTI however, she denies any UTI like symptoms. Will await culture before initiating treatment. Physical start of care expected to be 03/31/2023. Medications Administered Generic Name Dose Route Start Last Admin Trade Name Freq PRN Reason Stop Dose Admin Acetaminophen 650 mg 03/26/23 06:00 03/26/23 09:32 Acetaminophen 325 Mg Tablet PO 650 mg 5XD LILLIANA Administration Aripiprazole 2 mg 03/26/23 09:00 03/26/23 09:32 Aripiprazole 2 Mg Tablet PO 2 mg DAILY LILLIANA Administration Aspirin 81 mg 03/26/23 09:00 03/26/23 09:32 Aspirin 81 Mg Tab.Chew PO 81 mg DAILY LILLIANA Administration Bupropion HCl 300 mg 03/26/23 09:00 03/26/23 09:32 Bupropion Hcl Xl 300 Mg Tab.Er.24h PO 300 mg DAILY LILLIANA Administration Carvedilol 25 mg 03/26/23 09:00 03/26/23 09:33 Carvedilol 25 Mg Tablet PO 25 mg BID [facility] Administration Protocol Fluticasone/Vilanterol 1 puff 03/26/23 08:00 03/26/23 08:22 Fluticasone/Vilanterol 200/25 Blst.W.Dev INHALE Not Given RDAILY [facility] Hydroxyzine HCl 50 mg 03/26/23 01:28 03/26/23 02:16 Hydroxyzine Hcl 50 Mg Tablet PO 50 mg DAILY PRN Administration anxiety Oxycodone HCl 5 mg 03/26/23 05:51 03/26/23 06:05 Oxycodone Hcl Immed Release 5 Mg Tablet PO 5 mg Q6H PRN Administration Pain, Moderate(Pain Scale 4-6) Vitamin D 25 mcg 03/26/23 09:00 03/26/23 09:32 Cholecalciferol (Vitamin D3) 25 Mcg Tablet PO 25 mcg DAILY LILLIANA Administration Discontinued Medications Generic Name Dose Route Start Last Admin Trade Name Freq PRN Reason Stop Dose Admin Lidocaine 1 patch 03/26/23 01:50 03/26/23 02:15 Lidocaine 4 % Patch Adh..Patch TRANSDERMA 03/26/23 01:51 1 patch ONCE ONE Administration Protocol Oxycodone HCl 5 mg 03/26/23 01:50 03/26/23 02:16 Oxycodone Hcl Immed Release 5 Mg Tablet PO 03/26/23 01:51 5 mg ONCE ONE Administration Tramadol HCl 50 mg 03/25/23 21:11 03/25/23 21:58 Tramadol Hcl 50 Mg Tablet PO 03/25/23 21:12 50 mg ONCE ONE Administration Medical Decision Making Medical Decision Making [facility] Narrative: Patient is a 73-year-old female with past medical history of PTSD, depression, hypothyroidism, asthma, hypertension presenting to the emergency department for evaluation after a mechanical fall with pain/injuries as per HPI. At the time my examination there are no focal neurological deficits, based on patient's account is unclear whether any head strike occurred, though she denies any loss of consciousness or headache. There is no midline cervical spine tenderness, step-offs, deformities. However given age in uncertainty whether head strike occurred will obtain CT of the head to exclude ICH. Ordered XR imaging to evaluate for fracture/dislocations; left knee, pelvis, hand rib x-ray. Will trial tramadol pain. In addition to obtain basic labs. Differential Diagnosis Differential Diagnoses: The differential diagnosis associated with the presentation includes (Mechanical fall, presyncope, fracture, dislocation, contusion, sprain) Admission/Observation Consideration of admission/observation: Escalation of care including admission/observation considered (Considered observation for physical therapy/case management evaluation, please see course narrative) Lab Data MDM Lab Attestation statement: I reviewed the patient's lab results. (Please see course narrative) 03/25/23 22:00 03/25/23 22:00 Labs: Lab Results 03/25/23 03/25/23 03/25/23 Range/Units 19:55 22:00 22:00 WBC 8.2 (4.8-10.8) X10*3/uL RBC 5.85 H (4.20-5.50) X10*6/uL Hgb 16.0 (12.0-16.0) g/dl Hct 51.1 H (37.0-47.0) % MCV 87.4 (80.0-98.0) fL MCH 27.4 (27.0-33.0) pg MCHC 31.3 (31.0-35.0) g/dl RDW 14.3 (11.0-16.0) % Plt Count 235 (160-400) X10*3/uL MPV 10.9 (9.4-12.3) fL Immature Gran % (Auto) 0.4 (0.0-0.4) % Neut % (Auto) 64.7 (45-73) % Lymph % (Auto) 22.6 (20-40) % Chaves % (Auto) 7.2 (2-11) % Eos % (Auto) 4.5 H (0-4) % Baso % (Auto) 0.6 (0-2) % Lymph # (Auto) 1.8 (1.2-4.9) X10*3/uL Chaves # (Auto) 0.6 (0.1-1.2) X10*3/uL Eos # (Auto) 0.4 (0.0-0.4) X10*3/uL Baso # (Auto) 0.1 (0.0-0.2) X10*3/uL Abs Immat Gran (auto) 0.03 (0.00-0.03) X10*3/uL Absolute Neuts (auto) 5.3 (2.0-8.3) x10*3/uL Absolute Nucleated RBC 0.000 (0.0-0.012) X10*3/uL Nucleated RBC % (auto) 0.0 (0.0-0.2) /100WBC Sodium 144 (135-145) mmol/L Potassium 4.6 D (3.3-5.1) mmol/L Chloride 107 (96-108) mmol/L Carbon Dioxide 26 (22-29) mmol/L Anion Gap 16 (12-20) BUN 15 (9-16) mg/dL Creatinine 0.96 (0.5-1.4) mg/dL Estim Creat Clear Calc 70.8 Estimated GFR 57 POC Glucose 112 (60-115) mg/dL Random Glucose 124 H (60-115) mg/dL Calcium 11.3 H (8.4-10.2) mg/dL Urine Color Urine Appearance Urine pH (5.0-9.0) Ur Specific [place] (1.005-1.025) Urine Protein (Neg-Trace) mg/dL Urine Glucose (UA) (Negative) mg/dL Urine Ketones (Negative) mg/dL Urine Blood (Negative) Urine Nitrite (Negative) Ur Leukocyte Esterase (Negative) Urine RBC (0-2) /HPF Urine WBC (0-5) /HPF Ur Squamous Epith Cells (0-2) /HPF Urine Bacteria (None Seen) Hyaline Casts (0-2) /LPF 03/26/23 Range/Units 00:10 WBC (4.8-10.8) X10*3/uL RBC (4.20-5.50) X10*6/uL Hgb (12.0-16.0) g/dl Hct (37.0-47.0) % MCV (80.0-98.0) fL MCH (27.0-33.0) pg MCHC (31.0-35.0) g/dl RDW (11.0-16.0) % Plt Count (160-400) X10*3/uL MPV (9.4-12.3) fL Immature Gran % (Auto) (0.0-0.4) % Neut % (Auto) (45-73) % Lymph % (Auto) (20-40) % Chaves % (Auto) (2-11) % Eos % (Auto) (0-4) % Baso % (Auto) (0-2) % Lymph # (Auto) (1.2-4.9) X10*3/uL [place] # (Auto) (0.1-1.2) X10*3/uL Eos # (Auto) (0.0-0.4) X10*3/uL Baso # (Auto) (0.0-0.2) X10*3/uL Abs Immat Gran (auto) (0.00-0.03) X10*3/uL Absolute Neuts (auto) (2.0-8.3) x10*3/uL Absolute Nucleated RBC (0.0-0.012) X10*3/uL Nucleated RBC % (auto) (0.0-0.2) /100WBC Sodium (135-145) mmol/L Potassium (3.3-5.1) mmol/L Chloride (96-108) mmol/L Carbon Dioxide (22-29) mmol/L Anion Gap (12-20) BUN (9-16) mg/dL Creatinine (0.5-1.4) mg/dL Estim Creat Clear Calc Estimated GFR POC Glucose (60-115) mg/dL Random Glucose (60-115) mg/dL Calcium (8.4-10.2) mg/dL Urine Color Yellow Urine Appearance Cloudy Urine pH 6.0 (5.0-9.0) Ur Specific [place] 1.015 (1.005-1.025) Urine Protein Trace (Neg-Trace) mg/dL Urine Glucose (UA) 500 H (Negative) mg/dL Urine Ketones Negative (Negative) mg/dL Urine Blood Negative (Negative) Urine Nitrite Negative (Negative) Ur Leukocyte Esterase Small (1+) H (Negative) Urine RBC 6-10 H (0-2) /HPF Urine WBC 6-10 H (0-5) /HPF Ur Squamous Epith Cells 3-5 (0-2) /HPF Urine Bacteria 4+ (None Seen) Hyaline Casts 0-2 (0-2) /LPF Independent Interpretation I performed an independent interpretation of an: EKG and Plain X-Ray (I personally interpreted XR imaging and agree with radiologist impression, see course narrative) Interpretation: Rate:84 Rhythm:? Normal sinus rhythm Normal P waves.? Normal KARMA.?? Normal QRS complex.?? ST T wave :??No ST elevation no ST depression, T-wave inversion in aVL qTC: 423 The study has been interpreted contemporaneously by me. Radiology Impression Discussion of test interpretation with radiology: I have reviewed the radiologist's reading. Radiologist Impression: CT/CT head/brain wo IV con IMPRESSION: No acute intracranial pathology. XR/XR pelvis 1-2V IMPRESSION: Normal pelvis. XR/XR ribs LT min 3V w CXR1V IMPRESSION: No evidence for acute disease in the chest. Question nondisplaced fracture of the anterior seventh rib seen on one view. XR/XR knee LT 4V IMPRESSION: 1.? No acute abnormality. 2.? Small subpatellar joint effusion. 3.? Marked degenerative joint disease. Discharge Plan Discharge Clinical Impression: Closed rib fracture, Contusion of hip, Fall Patient Disposition: Home, Self-Care Instructions: Rib Fracture (ED), Fall Prevention (ED), Hip Contusion (ED) Additional Instructions: Follow up with your primary care provider. Return to the emergency department immediately if your symptoms worsen or if you develop any dizziness, shortness of breath, difficulty breathing, chest pain, blurry vision, loss of vision, nausea, vomiting, abdominal pain, fever, chills, back pain, or any other complaints. Prescriptions: No Action carvedilol 25 mg tablet 1 tab PO BID aspirin 81 mg tablet,chewable 1 tab PO DAILY albuterol sulfate 90 mcg/actuation HFA aerosol inhaler 2 puff PO Q4H PRN (Reason: wheezing) losartan 100 mg tablet 1 tab PO DAILY rosuvastatin 5 mg tablet 1 tab PO BEDTIME cholecalciferol (vitamin D3) [Vitamin D3] 25 mcg (1,000 unit) tablet 1 tab PO DAILY bupropion HCl 300 mg tablet extended release 24 hr 1 tab PO DAILY Qty: 90 0RF hydroxyzine HCl 50 mg tablet 50 mg PO DAILY PRN (Reason: anxiety) Qty: 90 0RF fluvoxamine 100 mg tablet 300 mg PO BEDTIME levothyroxine 137 mcg tablet 137 mcg PO DAILY@0600 torsemide 20 mg tablet 20 mg PO BID@0900,1600 allopurinol 100 mg tablet 100 mg PO DAILY baclofen 10 mg tablet 10 mg PO TID PRN (Reason: Muscle Spasm) amlodipine 10 mg tablet 10 mg PO DAILY simethicone 125 mg tablet,chewable 125 mg PO QIDWMHS PRN (Reason: gas) gabapentin 100 mg capsule 200 mg PO DAILY@1200 gabapentin 100 mg capsule 300 mg PO BEDTIME nystatin 100,000 unit/gram powder 1 appl topical BID PRN (Reason: Rash) Rx Instructions: apply to affected areas under breast or leg folds estradiol 0.01 % (0.1 mg/gram) cream 1 appl vaginal Q OTHER DAY ketoconazole 2 % cream 1 appl topical DAILY clotrimazole 1 % cream 1 appl topical DAILY PRN (Reason: Rash) Rx Instructions: apply to affected areas aripiprazole 5 mg tablet 10 mg PO DAILY Farxiga 10 mg tablet 10 mg PO DAILY Trelegy Ellipta 200-62.5-25 mcg blister with device 1 ea inhalation DAILY [facility]] Raven Lyons MD [Primary Care Provider] - Interventions: ED Discharge Assessment Last Done: 03/26/23 11:51 Print Language: Czech
[2023-03-25 22:48] VITALS: BP 148/67; PULSE 88; RESP 18; O2SAT 94
[2023-03-26 00:32] VITALS: BP 148/76; PULSE 86; RESP 17; TEMP 36.6; O2SAT 97
[2023-03-26 02:00] VITALS: BP 129/76; PULSE 74; RESP 16; TEMP 37; O2SAT 98
[2023-03-26 05:24] VITALS: BP 132/69; PULSE 88; RESP 17; TEMP 36.8; O2SAT 94
[2023-03-26 06:00] VITALS: BP 131/80; PULSE 70; RESP 16; TEMP 37; O2SAT 99
--- NOTE | 2023-03-26 07:17 | PC.NURSE ---
Alert and oriented. Reports feeling better than when she came into ER. States still has rib pain but does not need any prn medication right now. Purwick in place, patient has not yet vodied but states she does not feel full. denies sob or chest pain.
--- NOTE | 2023-03-26 09:05 | MHC.EDTECH ---
AM care done, purewick removed, call rcuker given patient aware to call to go to bathroom /commode. Bed change and reposition Patient in bed resting quietly , no apparent distress.will continue to observed
[2023-03-26 09:23] VITALS: BP 147/71; PULSE 93; RESP 12; O2SAT 95
--- NOTE | 2023-03-26 09:35 | PC.NURSE ---
Alert and oriented. states rib pain is 6/10. oob ambulating with therapy. Plan is to discharge home after 12:30, states brother in law can pick her up.
--- NOTE | 2023-03-26 09:42 | PHA.MEDREC ---
Pharmacy Consult ? Medication Reconciliation Pharmacy has completed the medication reconciliation. Spoke to patient to confirm meds. Patient had a list with them.
--- NOTE | 2023-03-26 10:49 | MHC.CM.ED ---
Addendum entered by Lizeth Aguirre 03/26/23 11:30: [facility] is now unable to accept. Still looking for VNA. Addendum entered by Lizeth Aguirre 03/26/23 11:28: [facility] is able to accept patient. Patient agreeable. Kathy from [facility] made aware. Original Note: Received case management consult overnight. Patient came to the ER due to a fall and knee pain. Work up essentially negative. Physical therapy eval completed. Home therapy is recommended. Patient is active with [facility]. Spoke with Kathy of [facility]. They will not be able to provide physical therapy. Will need to be referred out. Referral broadcasted at this time to see who can accept patient for physical therapy. Met with patient in regards to discharge planning. 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 PCP verified. Copy of HCP obtained from [facility]. Patient aware [facility] will not be able to provide physical therapy and has asked that referral be broadcasted. Patient agreeable to this. Her [id number] will transport patient home around 1pm. Patient, Ragini DEL CASTILLO and Ligia BOYD aware. Continue to monitor for d/c needs.
--- NOTE | 2023-03-26 11:45 | PC.NURSE ---
Patient assisted to get dressed and ready for discharge. IV removed. Patient stating her ride can not come until 1:30. Denies any pain or discomfort.
[2023-03-26 12:00] VITALS: BP 119/52; RESP 18; O2SAT 95
== END 2023-03-26 13:30 | disposition home or self-care (01) ==
PROVIDERS: Emergency Provider Emergency Medicine Emergency Medical Services; PCP Internal Medicine
DX: S22.32XA Fracture of one rib, left side, initial encounter for closed fracture (principal); S70.02XA Contusion of left hip, initial encounter; W01.190A Fall on same level from slipping, tripping and stumbling with subsequent striking against furniture, initial encounter; Z79.82 Long term (current) use of aspirin; Z79.899 Other long term (current) drug therapy; Y93.89 Activity, other specified; Y92.039 Unspecified place in apartment as the place of occurrence of the external cause; Y99.9 Unspecified external cause status
CPT/HCPCS: 36415; 70450; 71101; 72170; 73564; 80048; 81001; 82947; 85025; 87086; 93005; 94010; 97161; 99285

== ENCOUNTER 2023-05-25 07:39 | Emergency (ER) | payer MEDICARE, SELFPAY ==
[2023-05-25 07:42] VITALS: BP 196/105; PULSE 92; RESP 16; TEMP 37.3; O2SAT 96; BMI 45.9
--- NOTE | 2023-05-25 08:08 | PC.NURSE ---
pt is alert and oriented, skin pwd, pt reports having a rash under her breast, left sided breast started 5 days ago then the right started after that, pt is applying nystatin powder but not really improving, not painful, but reports some foul odor from the left breast abs some itchiness
--- NOTE | 2023-05-25 08:16 | ED.GENADULT ---
HPI - General Adult General Chief complaint: Skin/Abscess/Foreign Body Stated complaint: rash under both breast Time Seen by Provider: 05/25/23 07:59 Source: patient Mode of arrival: ambulatory Limitations: no limitations History of Present Illness HPI narrative: 73-year-old female came in for evaluation of redness under both breast for 5 days. The area is all was wet with a foul odor smell. Patient had a history of yeast infection in the past. Patient declined using any recent steroid or antibiotic. PCP started the patient on nystatin cream and hydrocortisone cream with no relief of patient's symptoms. Patient with known history of hypertension takes carvedilol daily did not take her medication this morning noted to have high blood pressure but no headache, no blurry vision, no CP, no SOB. Related Data Home Medications Medication Instructions Recorded Confirmed albuterol sulfate 90 mcg/actuation 2 puff PO Q4H PRN wheezing 06/21/20 03/26/23 aerosol inhaler aspirin 81 mg chewable tablet 1 tab PO DAILY 06/21/20 03/26/23 carvedilol 25 mg tablet 1 tab PO BID 06/21/20 03/26/23 cholecalciferol (vitamin D3) 25 1 tab PO DAILY 06/21/20 03/26/23 mcg (1,000 unit) tablet (Vitamin D3) losartan 100 mg tablet 1 tab PO DAILY 06/21/20 03/26/23 rosuvastatin 5 mg tablet 1 tab PO BEDTIME 06/21/20 03/26/23 allopurinol 100 mg tablet 100 mg PO DAILY 03/26/23 03/26/23 amlodipine 10 mg tablet 10 mg PO DAILY 03/26/23 03/26/23 aripiprazole 5 mg tablet 10 mg PO DAILY 03/26/23 03/26/23 baclofen 10 mg tablet 10 mg PO TID PRN Muscle Spasm 03/26/23 03/26/23 clotrimazole 1 % topical cream 1 appl topical DAILY PRN Rash 03/26/23 03/26/23 dapagliflozin propanediol 10 mg 10 mg PO DAILY 03/26/23 03/26/23 tablet (Farxiga) estradiol 0.01% (0.1 mg/gram) 1 appl vaginal Q OTHER DAY 03/26/23 03/26/23 vaginal cream fluticasone fur. 200 mcg-umeclid 1 ea inhalation DAILY 03/26/23 03/26/23 62.5 mcg-vilant 25 mcg inhalat.powder (Trelegy Ellipta) fluvoxamine 100 mg tablet 300 mg PO BEDTIME 03/26/23 03/26/23 gabapentin 100 mg capsule 200 mg PO DAILY@1200 03/26/23 03/26/23 gabapentin 100 mg capsule 300 mg PO BEDTIME 03/26/23 03/26/23 ketoconazole 2 % topical cream 1 appl topical DAILY 03/26/23 03/26/23 levothyroxine 137 mcg tablet 137 mcg PO DAILY@0600 03/26/23 03/26/23 nystatin 100,000 unit/gram topical 1 appl topical BID PRN Rash 03/26/23 03/26/23 powder simethicone 125 mg chewable tablet 125 mg PO QIDWMHS PRN gas 03/26/23 03/26/23 torsemide 20 mg tablet 20 mg PO BID@0900,1600 03/26/23 03/26/23 Previous Rx's Medication Instructions Recorded bupropion HCl 300 mg 24 hr tablet, 1 tab PO DAILY #90 tabs 10/22/20 extended release hydroxyzine HCl 50 mg tablet 50 mg PO DAILY PRN anxiety #90 tabs 12/17/20 fluconazole 100 mg tablet 100 mg PO DAILY #3 tabs 05/25/23 ketoconazole 2 % topical cream 1 appl topical BID #30 grams 05/25/23 Allergies Allergy/AdvReac Type Severity Reaction Status Date / Time lisinopril [LISINOPRIL] Allergy Intermediate RASH Unverified 06/07/20 16:18 quetiapine [From SEROQUEL] Allergy Intermediate RASH Unverified 06/07/20 16:18 sertraline [From ZOLOFT] Allergy Intermediate RASH, Unverified 06/07/20 16:18 DIZZINESS loratadine [From CLARITIN] Allergy Mild UNKNOWN Unverified 06/07/20 16:18 methimazole [From TAPAZOLE] Allergy Mild RASH Unverified 06/07/20 16:18 furosemide [Lasix] Allergy Unknown Verified 08/20/18 00:00 potassium chloride Allergy Unknown Verified 08/20/18 00:00 propranolol [PROPRANOLOL] AdvReac Severe anergy Unverified 06/07/20 16:18 Pt states no known food Allergy Unknown Uncoded 08/20/18 00:00 allerg Review of Systems Review of Systems: All other systems are reviewed and are negative Constitutional: Reports as per HPI and Reports no additional constitutional complaints Eyes: Reports as per HPI and Reports no additional eye complaints Reports system reviewed and no additional complaints, except as documented Cardiovascular: Reports as per HPI and Reports no additional cardiovascular complaints Respiratory: Reports as per HPI and Reports no additional respiratory complaints Gastrointestinal: Reports as per HPI and Reports no additional gastrointestinal complaints Genitourinary: Reports no additional female genitourinary complaints Musculoskeletal: Reports no additional musculoskeletal complaints Skin/Breast: Reports system reviewed and no additional complaints, except as docu Psychiatric: Reports no additional psychiatric complaints Endocrine: Reports no additional endocrine complaints Hematologic/Lymphatic: Reports no additional hematologic/lymphatic complaints Allergic/Immunologic: Reports no additional allergic/immunologic complaints Reports system reviewed and no additional complaints, except as documented and Reports Abnormal speech present [facility] Past Medical History Medical History PTSD (post-traumatic stress disorder) Recurrent major depression-severe Family History Family History Other Depression Social History Social History Household Members Other:: Lives with her cat Housing: Apartment Are you a primary care specialist to a significant other at home: No Do you presently have visiting nurse or other home services: Yes Alcohol intake: never Smoked in Last 30 Days: No Use of substances other than those prescribed or required for medical reasons: No Advance Directives: Yes Advance Directives on File: Yes Advance Directives Date on File: 03/26/23 Physical Exam ED Vital Signs: Vital Signs - 24 hr 05/25/23 07:42 Temperature 99.1 F Pulse Rate 92 Respiratory Rate 16 Blood Pressure 196/105 H Pulse Oximetry 96 Oxygen Delivery Method Room Air BMI result Body Mass Index 45.9 vital signs have been reviewed as appeared to be correct. Blood pressure Elevated. Heart rate normal. Respiration rate normal. Temperature normal. Oxygen saturation normal. Appearance: Alert. Oriented X3. No acute distress. Head: Normal external exam. Normocephalic. Atraumatic. No Knox signs noted. No raccoon eyes noted Eyes: PERRLA. EOMI. Conjunctiva and sclera normal. Eyelids normal. ENT: TM's Normal. Pharynx normal. Uvula midline. Moist mucous membranes. No trismus noted. No drooling noted. No muffled voice noted. Neck: Normal inspection. Neck supple. FROM. No adenopathy. Thyroid Normal. No meningeal signs. No neck mass noted. chest wall exam: Beefy red, my service, satellite lesions under both breasts. No abscess or fluctuation. CVS: Normal heart rate and rhythm. Heart sound normal. No murmurs noted. Pulses normal throughout. Respiratory: No respiratory distress. Painless inspiration. Breath sounds normal. No wheezes/rales/rhonchi noted. Chest nontender. No accessory muscle usage noted or decreased air movement noted. Abdomen: Soft and nontender. Bowel sounds normal in all 4 quadrants. No distention noted. No organomegaly noted. No visible injury noted. Back: No CVA tenderness. Full range of motion noted. Skin: Skin warm and dry. Normal skin color. Normal skin turgor. No rashes/lesions/lacerations noted. Extremities: No lower extremity edema. Extremities exhibit normal range of motion. Extremities nontender. Neuro: Oriented X 3. Cranial nerve exam: II-XII are grossly intact No motor deficit. No sensory deficit. Reflexes normal. Course Course Course Narrative: Bilateral fungal Candidal skin infection to both under breast area that failed nystatin cream treatment and hydrocortisone by PCP, no superimposed infection or abscesses. Medical Decision Making Differential Diagnosis Differential Diagnoses: The differential diagnosis associated with the presentation includes ( Bacterial infection, fungal infection, abscesses , essential hypertension, hypertensive emergency.) Admission/Observation Consideration of admission/observation: Escalation of care including admission/observation considered Discharge Plan Discharge Clinical Impression: HTN (hypertension), Brandi infection of flexural skin Patient Disposition: Home, Self-Care Instructions: Hypertension (ED), Skin Yeast Infection (ED) Additional Instructions: use the ointment as instructed and follow up with your PCP. Take your blood pressure medication and monitor your blood pressure after contact your primary doctor if your blood pressure above your normal average blood pressure. Prescriptions: New ketoconazole 2 % cream 1 appl topical BID Qty: 30 0RF fluconazole 100 mg tablet 100 mg PO DAILY Qty: 3 0RF No Action carvedilol 25 mg tablet 1 tab PO BID aspirin 81 mg tablet,chewable 1 tab PO DAILY albuterol sulfate 90 mcg/actuation HFA aerosol inhaler 2 puff PO Q4H PRN (Reason: wheezing) losartan 100 mg tablet 1 tab PO DAILY rosuvastatin 5 mg tablet 1 tab PO BEDTIME cholecalciferol (vitamin D3) [Vitamin D3] 25 mcg (1,000 unit) tablet 1 tab PO DAILY bupropion HCl 300 mg tablet extended release 24 hr 1 tab PO DAILY Qty: 90 0RF hydroxyzine HCl 50 mg tablet 50 mg PO DAILY PRN (Reason: anxiety) Qty: 90 0RF fluvoxamine 100 mg tablet 300 mg PO BEDTIME levothyroxine 137 mcg tablet 137 mcg PO DAILY@0600 torsemide 20 mg tablet 20 mg PO BID@0900,1600 allopurinol 100 mg tablet 100 mg PO DAILY baclofen 10 mg tablet 10 mg PO TID PRN (Reason: Muscle Spasm) amlodipine 10 mg tablet 10 mg PO DAILY simethicone 125 mg tablet,chewable 125 mg PO QIDWMHS PRN (Reason: gas) gabapentin 100 mg capsule 200 mg PO DAILY@1200 gabapentin 100 mg capsule 300 mg PO BEDTIME nystatin 100,000 unit/gram powder 1 appl topical BID PRN (Reason: Rash) Rx Instructions: apply to affected areas under breast or leg folds estradiol 0.01 % (0.1 mg/gram) cream 1 appl vaginal Q OTHER DAY ketoconazole 2 % cream 1 appl topical DAILY clotrimazole 1 % cream 1 appl topical DAILY PRN (Reason: Rash) Rx Instructions: apply to affected areas aripiprazole 5 mg tablet 10 mg PO DAILY Farxiga 10 mg tablet 10 mg PO DAILY Trelegy Ellipta 200-62.5-25 mcg blister with device 1 ea inhalation DAILY Referrals: Raven Lyons MD [Primary Care Provider] -
[2023-05-25 09:05] VITALS: BP 196/109; PULSE 89; RESP 20; O2SAT 94
== END 2023-05-25 09:06 | disposition home or self-care (01) ==
PROVIDERS: Emergency Provider Emergency Medicine; PCP Internal Medicine
DX: B37.2 Candidiasis of skin and nail (principal); I10 Essential (primary) hypertension; Z79.899 Other long term (current) drug therapy
CPT/HCPCS: 99283; 99284

== ENCOUNTER 2025-01-03 00:03 | Emergency (ER) | payer OTHER, SELFPAY ==
--- NOTE | ~2025-01-03 | XR_ITS ---
CLINICAL HISTORY: CHF 1 view chest x-ray Comparison: None Findings: The lungs are clear. Heart size is normal. No acute fracture. IMPRESSION: 1. No acute findings. This document has been electronically signed by: Jason Dc MD on 01/03/2025 01:14:29
[2025-01-03 00:19] VITALS: BP 170/67; BP 175/67; PULSE 79; PULSE 86; RESP 11; TEMP 36.6; O2SAT 95; O2SAT 96; BMI 44.2
--- NOTE | 2025-01-03 00:24 | ECG_ITS ---
Test Reason : DIZZINESS Blood Pressure : */* mmHG Vent. Rate : 75 BPM Atrial Rate : 75 BPM P-R Int : 202 ms QRS Dur : 92 ms QT Int : 366 ms P-R-T Axes : 39 -9 20 degrees QTcB Int : 408 ms Normal sinus rhythm Normal ECG When compared with ECG of 25-Mar-2023 19:59, Criteria for Septal infarct are no longer Present T wave inversion now evident in Inferior leads T wave inversion no longer evident in Lateral leads Referred By: Generic ED Physician Electronically Signed By: JHON BOSE MD
[2025-01-03 01:13] LABS: MANUAL DIFF FLAG NO
[2025-01-03 01:15] LABS: Basophils Percent Auto 0.4 % (0-2); Eosinophils Absolute Auto 0.4 X10*3/uL (0.0-0.4); Eosinophils Percent Auto 5.4 % (0-4); Hematocrit 48.1 % (37.0-47.0); Hemoglobin 15.4 g/dl (12.0-16.0); Imm Gran Abs Auto 0.02 X10*3/uL (0.00-0.03); Imm Gran Pct Auto 0.3 % (0.0-0.4); Lymphocytes Absolute Auto 1.4 X10*3/uL (1.2-4.9); Mean Corpuscular Hemoglobin 29.1 pg (27.0-33.0); Mean Corpuscular Volume 90.8 fL (80.0-98.0); Mean Platelet Volume 10.6 fL (9.4-12.3); Monocytes Absolute Auto 0.5 X10*3/uL (0.1-1.2); Monocytes Percent Auto 6.9 % (2-11); Neutrophils Absolute Auto 4.4 x10*3/uL (2.0-8.3); Platelet Count 189 X10*3/uL (160-400); Red Cell Distribution Width 14.1 % (11.0-16.0); White Blood Count 6.7 X10*3/uL (4.8-10.8)
[2025-01-03 01:35] LABS: Troponin-I High Sensitivity 2.9 ng/L (<3.5-17.0)
[2025-01-03 01:36] LABS: B Type Natriuretic Peptide 49 pg/mL (<100)
[2025-01-03 01:37] LABS: Alanine Aminotransferase 14 U/L (0-31); Albumin Level 4.3 g/dL (3.5-5.0); Alkaline Phosphatase 56 U/L (39-117); Anion Gap 14 (12-20); Aspartate Amino Transferase 22 U/L (5-31); Bilirubin Total 0.6 mg/dL (0.0-1.0); Blood Urea Nitrogen 18 mg/dL (9-16); Calcium 10.6 mg/dL (8.4-10.2); Carbon Dioxide 27 mmol/L (22-29); Chloride 108 mmol/L (96-108); Creatinine Clr Calc Pharmacy 74.9; Estimated Glomerular Filt Rate > 60; Glucose Random 113 mg/dL (60-115); Sodium 145 mmol/L (135-145); Total Protein 7.2 g/dL (6.5-8.0)
[2025-01-03 03:05] VITALS: BP 167/74; PULSE 76; RESP 16; O2SAT 96
--- NOTE | 2025-01-03 03:07 | ED.GENADULT ---
HPI - General Adult General Chief complaint: Dizziness Stated complaint: Light headedness & weakness, x2 days w/o meds Time Seen by Provider: 01/03/25 01:19 Source: patient Mode of arrival: EMS Limitations: no limitations History of Present Illness ED Provider: HPI narrative: Patient's history of PTSD major depression hypothyroidism asthma and hypertension noncompliant to her medication for last few days complaining of feeling dizzy and lightheaded blood pressure was 190 systolic for EMS on arrival blood pressure was 170/67 patient has missed her medication feel anxious says that whenever she feels anxious you feel dizzy which is very nonspecific no chest pain no palpitation Related Data Home Medications ?Medication ?Instructions ?Recorded ?Confirmed albuterol sulfate 90 mcg/actuation 2 puff PO Q4H PRN wheezing 06/21/20 03/26/23 aerosol inhaler aspirin 81 mg chewable tablet 1 tab PO DAILY 06/21/20 03/26/23 carvedilol 25 mg tablet 1 tab PO BID 06/21/20 03/26/23 cholecalciferol (vitamin D3) 25 1 tab PO DAILY 06/21/20 03/26/23 mcg (1,000 unit) tablet (Vitamin D3) losartan 100 mg tablet 1 tab PO DAILY 06/21/20 03/26/23 rosuvastatin 5 mg tablet 1 tab PO BEDTIME 06/21/20 03/26/23 allopurinol 100 mg tablet 100 mg PO DAILY 03/26/23 03/26/23 amlodipine 10 mg tablet 10 mg PO DAILY 03/26/23 03/26/23 aripiprazole 5 mg tablet 10 mg PO DAILY 03/26/23 03/26/23 baclofen 10 mg tablet 10 mg PO TID PRN Muscle Spasm 03/26/23 03/26/23 clotrimazole 1 % topical cream 1 appl topical DAILY PRN Rash 03/26/23 03/26/23 dapagliflozin propanediol 10 mg 10 mg PO DAILY 03/26/23 03/26/23 tablet (Farxiga) estradiol 0.01% (0.1 mg/gram) 1 appl vaginal Q OTHER DAY 03/26/23 03/26/23 vaginal cream fluticasone fur. 200 mcg-umeclid 1 ea inhalation DAILY 03/26/23 03/26/23 62.5 mcg-vilant 25 mcg inhalat.powder (Trelegy Ellipta) fluvoxamine 100 mg tablet 300 mg PO BEDTIME 03/26/23 03/26/23 gabapentin 100 mg capsule 200 mg PO DAILY@1200 03/26/23 03/26/23 gabapentin 100 mg capsule 300 mg PO BEDTIME 03/26/23 03/26/23 ketoconazole 2 % topical cream 1 appl topical DAILY 03/26/23 03/26/23 levothyroxine 137 mcg tablet 137 mcg PO DAILY@0600 03/26/23 03/26/23 nystatin 100,000 unit/gram topical 1 appl topical BID PRN Rash 03/26/23 03/26/23 powder simethicone 125 mg chewable tablet 125 mg PO QIDWMHS PRN gas 03/26/23 03/26/23 torsemide 20 mg tablet 20 mg PO BID@0900,1600 03/26/23 03/26/23 Previous Rx's ?Medication ?Instructions ?Recorded bupropion HCl 300 mg 24 hr tablet, 1 tab PO DAILY #90 tabs 10/22/20 extended release hydroxyzine HCl 50 mg tablet 50 mg PO DAILY PRN anxiety #90 tabs 12/17/20 fluconazole 100 mg tablet 100 mg PO DAILY #3 tabs 05/25/23 ketoconazole 2 % topical cream 1 appl topical BID #30 grams 05/25/23 Allergies Allergy/AdvReac Type Severity Reaction Status Date / Time lisinopril [LISINOPRIL] Allergy Intermediate RASH Verified 01/03/25 00:23 quetiapine [From SEROQUEL] Allergy Intermediate RASH Verified 01/03/25 00:23 sertraline [From ZOLOFT] Allergy Intermediate RASH, Verified 01/03/25 00:23 DIZZINESS loratadine [From CLARITIN] Allergy Mild UNKNOWN Verified 01/03/25 00:23 methimazole [From TAPAZOLE] Allergy Mild RASH Verified 01/03/25 00:23 potassium chloride Allergy Unknown Unknown Verified 01/03/25 00:23 propranolol [PROPRANOLOL] AdvReac Severe anergy Verified 01/03/25 00:23 Review of Systems Review of Systems: Yes all other systems are reviewed and are negative PMFSH Past Medical History Medical History PTSD (post-traumatic stress disorder) Recurrent major depression-severe Family History Family History Other Depression Social History Social History Household Members Other:: Lives with her cat Housing: Apartment Are you a primary career services officer to a significant other at home: No Do you presently have visiting nurse or other home services: Yes Alcohol intake: never Smoked in Last 30 Days: No Advance Directives: Yes Advance Directives on File: Yes Advance Directives Date on File: 03/26/23 Do you have a plan to hurt others: No Plan Physical Exam ED Vital Signs: Vital Signs - 24 hr 01/03/25 00:19 01/03/25 03:05 01/03/25 05:23 Temperature 97.8 F 98.8 F Pulse Rate 79 76 85 Respiratory Rate 11 L 16 16 Blood Pressure 170/67 H 167/74 H 164/72 H Pulse Oximetry 96 96 94 Oxygen Delivery Method Room Air Room Air Room Air 01/03/25 08:23 Temperature 98.8 F Pulse Rate 85 Respiratory Rate 16 Blood Pressure 164/72 H Pulse Oximetry 94 Oxygen Delivery Method Room Air BMI result Body Mass Index 44.2 Appearance: Alert. Oriented X3. No acute distress. Anxious Eyes: PERRLA, No Nystagmus ENT: Pharynx normal. Oral Mucosa moist Neck: Normal inspection. Neck supple. CVS: Normal heart rate and rhythm. Pulses normal. Respiratory: No respiratory distress. Equal air entry bilateral, no wheezing/rales/rhonchi Abdomen: Soft and nontender. Bowel sounds are present, no mass palpable, no CVA tenderness Skin: Skin warm and dry. Normal skin color. Normal skin turgor. Extremities: No lower extremity edema. No calf tenderness Neuro: Oriented X 3. No motor deficit. No sensory deficit.No cerebellar signs , cranial nerves II-XII intact Medications Administered Discontinued Medications Generic Name Dose Route Start Last Admin Trade Name Freq PRN Reason Stop Dose Admin Lorazepam 1 mg 01/03/25 03:16 01/03/25 03:59 Lorazepam 1 Mg Tablet PO 01/03/25 03:17 1 mg ONCE ONE Administration Medical Decision Making Medical Decision Making MDM Narrative: Patient's anxiety with multiple complaints feeling much better after lorazepam will discharge patient home labs are stable Lab Data MDM Lab Attestation statement: I reviewed the patient's lab results. 01/03/25 01:03 01/03/25 01:03 Labs: Lab Results 01/03/25 Range/Units 01:03 WBC 6.7 (4.8-10.8) X10*3/uL RBC 5.30 (4.20-5.50) X10*6/uL Hgb 15.4 (12.0-16.0) g/dl Hct 48.1 H (37.0-47.0) % MCV 90.8 (80.0-98.0) fL MCH 29.1 (27.0-33.0) pg MCHC 32.0 (31.0-35.0) g/dl RDW 14.1 (11.0-16.0) % Plt Count 189 (160-400) X10*3/uL MPV 10.6 (9.4-12.3) fL Immature Gran % (Auto) 0.3 (0.0-0.4) % Neut % (Auto) 66.0 (45-73) % Lymph % (Auto) 21.0 (20-40) % [place] % (Auto) 6.9 (2-11) % Eos % (Auto) 5.4 H (0-4) % Baso % (Auto) 0.4 (0-2) % Lymph # (Auto) 1.4 (1.2-4.9) X10*3/uL [place] # (Auto) 0.5 (0.1-1.2) X10*3/uL Eos # (Auto) 0.4 (0.0-0.4) X10*3/uL Baso # (Auto) 0.0 (0.0-0.2) X10*3/uL Abs Immat Gran (auto) 0.02 (0.00-0.03) X10*3/uL Absolute Neuts (auto) 4.4 (2.0-8.3) x10*3/uL Absolute Nucleated RBC 0.000 (0.0-0.012) X10*3/uL Nucleated RBC % (auto) 0.0 (0.0-0.2) /100WBC Sodium 145 (135-145) mmol/L Potassium 4.0 (3.3-5.1) mmol/L Chloride 108 (96-108) mmol/L Carbon Dioxide 27 (22-29) mmol/L Anion Gap 14 (12-20) BUN 18 H (9-16) mg/dL Creatinine 0.81 (0.5-1.4) mg/dL Estim Creat Clear Calc 74.9 Estimated GFR > 60 Random Glucose 113 (60-115) mg/dL Calcium 10.6 H D (8.4-10.2) mg/dL Total Bilirubin 0.6 (0.0-1.0) mg/dL AST 22 (5-31) U/L ALT 14 (0-31) U/L Alkaline Phosphatase 56 (39-117) U/L Troponin I High Sens 2.9 (<3.5-17.0) ng/L B-Natriuretic Peptide 49 (<100) pg/mL Total Protein 7.2 (6.5-8.0) g/dL Albumin 4.3 (3.5-5.0) g/dL Independent Interpretation I performed an independent interpretation of an: EKG Interpretation: Normal sinus rhythm heart rate 75 beats per minute normal intervals normal axis no acute STT wave changes no acute ischemia Discharge Plan Discharge Clinical Impression: Anxiety Patient Disposition: Home, Self-Care Instructions: Generalized Anxiety Disorder (ED) Additional Instructions: Take your medications as prescribed by your PCP and follow up with your PCP Prescriptions: No Action carvedilol 25 mg tablet 1 tab PO BID aspirin 81 mg tablet,chewable 1 tab PO DAILY albuterol sulfate 90 mcg/actuation HFA aerosol inhaler 2 puff PO Q4H PRN (Reason: wheezing) losartan 100 mg tablet 1 tab PO DAILY rosuvastatin 5 mg tablet 1 tab PO BEDTIME cholecalciferol (vitamin D3) [Vitamin D3] 25 mcg (1,000 unit) tablet 1 tab PO DAILY bupropion HCl 300 mg tablet extended release 24 hr 1 tab PO DAILY Qty: 90 0RF hydroxyzine HCl 50 mg tablet 50 mg PO DAILY PRN (Reason: anxiety) Qty: 90 0RF ketoconazole 2 % cream 1 appl topical BID Qty: 30 0RF fluconazole 100 mg tablet 100 mg PO DAILY Qty: 3 0RF fluvoxamine 100 mg tablet 300 mg PO BEDTIME levothyroxine 137 mcg tablet 137 mcg PO DAILY@0600 torsemide 20 mg tablet 20 mg PO BID@0900,1600 allopurinol 100 mg tablet 100 mg PO DAILY baclofen 10 mg tablet 10 mg PO TID PRN (Reason: Muscle Spasm) amlodipine 10 mg tablet 10 mg PO DAILY simethicone 125 mg tablet,chewable 125 mg PO QIDWMHS PRN (Reason: gas) gabapentin 100 mg capsule 200 mg PO DAILY@1200 gabapentin 100 mg capsule 300 mg PO BEDTIME nystatin 100,000 unit/gram powder 1 appl topical BID PRN (Reason: Rash) Rx Instructions: apply to affected areas under breast or leg folds estradiol 0.01 % (0.1 mg/gram) cream 1 appl vaginal Q OTHER DAY ketoconazole 2 % cream 1 appl topical DAILY clotrimazole 1 % cream 1 appl topical DAILY PRN (Reason: Rash) Rx Instructions: apply to affected areas aripiprazole 5 mg tablet 10 mg PO DAILY Farxiga 10 mg tablet 10 mg PO DAILY Trelegy Ellipta 200-62.5-25 mcg blister with device 1 ea inhalation DAILY Interventions: ED Discharge Assessment Last Done: 01/03/25 08:23 Discharge Date/Time: 01/03/25 08:23 Print Language: Pakistani
[2025-01-03] MEDS: LORazepam 1 MG TABLET PO (03:59)
--- NOTE | 2025-01-03 05:11 | ECG_ITS ---
Test Reason : CP Blood Pressure : */* mmHG Vent. Rate : 81 BPM Atrial Rate : 81 BPM P-R Int : 196 ms QRS Dur : 86 ms QT Int : 366 ms P-R-T Axes : 39 -17 26 degrees QTcB Int : 425 ms Normal sinus rhythm Normal ECG When compared with ECG of 03-Jan-2025 00:47, No significant change was found Referred By: James Kapoor Electronically Signed By: JHON BOSE MD
[2025-01-03 05:23] VITALS: BP 164/72; PULSE 85; RESP 16; TEMP 37.1; O2SAT 94
[2025-01-03 08:23] VITALS: BP 164/72; PULSE 85; RESP 16; TEMP 37.1; O2SAT 94
== END 2025-01-03 08:23 | disposition home or self-care (01) ==
PROVIDERS: Emergency Provider Internal Medicine
DX: F41.9 Anxiety disorder, unspecified (principal); F43.10 Post-traumatic stress disorder, unspecified; F33.2 Major depressive disorder, recurrent severe without psychotic features; I10 Essential (primary) hypertension; E03.9 Hypothyroidism, unspecified; J45.909 Unspecified asthma, uncomplicated; Z91.148 Patient's other noncompliance with medication regimen for other reason
CPT/HCPCS: 36415; 71045; 80053; 83880; 84484; 85025; 93005; 99283; 99285

== ENCOUNTER → 2025-01-03 00:24 | Outpatient (BNV) | payer OTHER, SELFPAY | PROVIDERS: Emergency Provider Internal Medicine; Visit Provider Internal Medicine Cardiovascular Disease | DX: R42 Dizziness and giddiness (principal); R07.9 Chest pain, unspecified | CPT/HCPCS: 93010 ==

== ENCOUNTER → 2025-01-03 00:30 | Outpatient (BNV) | payer OTHER, SELFPAY | PROVIDERS: Visit Provider Radiology Diagnostic Radiology | DX: I50.9 Heart failure, unspecified (principal); R53.1 Weakness; R42 Dizziness and giddiness | CPT/HCPCS: 71045 ==

== ENCOUNTER 2025-04-11 07:58 | Emergency (ER) | payer OTHER, SELFPAY ==
--- NOTE | ~2025-04-11 | XR_ITS ---
EXAMINATION: XR KNEE, LEFT CLINICAL INFORMATION: fall, brusing COMPARISON: March 25, 2023. TECHNIQUE: AP, oblique, cross lateral views of the left knee. FINDINGS: Joint space narrowing involving mostly the medial compartment with marginal osteophyte formation both medial femoral condyles and both medial tibial plateaus. Sclerosis along the articular surface of the medial and to a lesser extent lateral compartments. Posterior marginal osteophyte formation in the patella. No acute cortical disruption or malalignment. No lytic or blastic lesions. No subcutaneous emphysema. No suprapatellar bursa joint effusion. XR/XR knee LT 4V IMPRESSION: Moderate to severe tricompartmental osteoarthrosis involving mostly the medial compartment. No acute fracture or dislocation. Electronically signed by: Delfino Sharma MD 04/11/2025 08:50 AM EDT
--- NOTE | ~2025-04-11 | CT_ITS ---
EXAMINATION: CT HEAD WITHOUT CONTRAST CLINICAL INFORMATION: fall, on ASA COMPARISON: March 25, 2023. TECHNIQUE: Contiguous axial imaging was performed from the skull base to vertex without intravenous administration of contrast. This CT examination was performed using dose optimization techniques as appropriate, variously including the following: *Automated exposure control *Adjustment of mA and/or kV according to patient size (this includes techniques or standardized protocols for targeted exams where dose is matched to indication/reason for exam; i.e. extremities or head) *Use of iterative reconstruction technique DLP: 548 mGy-cm FINDINGS: No acute cortical disruption in the bony calvarium. No acute intracranial hemorrhage, mass effect, midline shift, hydrocephalus or herniation. Sanches-white matter differentiation is normal. There is prominence of the extra-axial CSF spaces cerebral sulci involving mostly the frontoparietal poles. Posterior cranial fossa contents demonstrated no acute hemorrhage or gross mass effect. Sellar/suprasellar region demonstrated no gross masses. Craniocervical junction demonstrates normal position of the cerebellar tonsils. Vascular cavitations, cavernous supracavernous segments both ICAs and V3 segments of the vertebral arteries. No air-fluid levels in the included paranasal sinuses. Tympanic cavities and mastoid air cells are aerated. CT/CT head/brain wo IV con IMPRESSION: No acute fracture, bony calvarium. No acute intracranial hemorrhage. Electronically signed by: Delfino Sharma MD 04/11/2025 09:32 AM EDT
--- NOTE | ~2025-04-11 | US_ITS ---
EXAMINATION: US TRIPLEX LOWER EXTREMITY, BILATERAL CLINICAL INFORMATION: Extremity pain and swelling COMPARISON: None available. TECHNIQUE: Color-flow triplex imaging with spectral analysis and compression Doppler were performed on the bilateral lower extremities. FINDINGS: Respiratory variation, normal compression and augmented flow are noted throughout the bilateral lower extremities. The visualized common femoral vein, superficial femoral vein, profunda femoral vein, popliteal vein and posterior tibial venous segments show no evidence of deep venous thrombosis bilaterally. Peroneal veins were not demonstrated bilaterally. US/US venous duplex LE BI IMPRESSION: No evidence of deep venous thrombosis involving the bilateral lower extremities. Electronically signed by: Yahir Álvarez MD 04/11/2025 12:35 PM EDT
--- NOTE | ~2025-04-11 | XR_ITS ---
EXAMINATION: XR KNEE, RIGHT CLINICAL INFORMATION: fall, bruising COMPARISON: August 06, 2018. TECHNIQUE: AP oblique and cross lateral view of the right knee. FINDINGS: Joint space narrowing involving mostly the medial compartment. Marginal osteophyte formation both femoral condyles and tibial plateau. Subchondral cyst formation and sclerosis along the articular surface of the medial compartment. No acute cortical disruption or gross malalignment. Probable soft tissue contusion near the patellar tendon. No suprapatellar bursa joint effusion. No lytic or blastic lesions. No subcutaneous emphysema. XR/XR knee RT 4V IMPRESSION: No acute fracture or dislocation. Tricompartmental osteoarthrosis, moderate to severe involving mostly the medial compartment. Electronically signed by: Delfino Sharma MD 04/11/2025 08:52 AM EDT
[2025-04-11 08:03] VITALS: BP 126/60; BP 142/80; PULSE 70; PULSE 73; RESP 19; TEMP 36.6; O2SAT 95; O2SAT 96; BMI 45.7
--- NOTE | 2025-04-11 08:06 | ED.GENADULT ---
HPI - General Adult General Chief complaint: Extremity Injury, Lower Stated complaint: Fall 1 week ago, bilateral knee pain and bruising Time Seen by Provider: 04/11/25 08:02 Source: patient, EMS, RN notes reviewed and old records reviewed Mode of arrival: EMS Limitations: no limitations History of Present Illness ED Provider: Josef HPI narrative: Patient is a 75-year-old female with history HTN, asthma, hypothyroidism, PTSD, recurrent major depression presenting to the emergency department with complaint of bilateral knee and lower leg pain. She reports that she was ambulating with her walker on when she tripped and fell forward onto her knees in a restaurant. Since that time has developed ongoing pain and bruising. She denies head strike or loss of consciousness. She takes aspirin but is not anticoagulated. MD complaint: lower leg pain Onset (ago): day(s) Related Data Home Medications ?Medication ?Instructions ?Recorded ?Confirmed albuterol sulfate 90 mcg/actuation 2 puff PO Q4H PRN wheezing 06/21/20 03/26/23 aerosol inhaler aspirin 81 mg chewable tablet 1 tab PO DAILY 06/21/20 03/26/23 carvedilol 25 mg tablet 1 tab PO BID 06/21/20 03/26/23 cholecalciferol (vitamin D3) 25 1 tab PO DAILY 06/21/20 03/26/23 mcg (1,000 unit) tablet (Vitamin D3) losartan 100 mg tablet 1 tab PO DAILY 06/21/20 03/26/23 rosuvastatin 5 mg tablet 1 tab PO BEDTIME 06/21/20 03/26/23 allopurinol 100 mg tablet 100 mg PO DAILY 03/26/23 03/26/23 amlodipine 10 mg tablet 10 mg PO DAILY 03/26/23 03/26/23 aripiprazole 5 mg tablet 10 mg PO DAILY 03/26/23 03/26/23 baclofen 10 mg tablet 10 mg PO TID PRN Muscle Spasm 03/26/23 03/26/23 clotrimazole 1 % topical cream 1 appl topical DAILY PRN Rash 03/26/23 03/26/23 dapagliflozin propanediol 10 mg 10 mg PO DAILY 03/26/23 03/26/23 tablet (Farxiga) estradiol 0.01% (0.1 mg/gram) 1 appl vaginal Q OTHER DAY 03/26/23 03/26/23 vaginal cream fluticasone fur. 200 mcg-umeclid 1 ea inhalation DAILY 03/26/23 03/26/23 62.5 mcg-vilant 25 mcg inhalat.powder (Trelegy Ellipta) fluvoxamine 100 mg tablet 300 mg PO BEDTIME 03/26/23 03/26/23 gabapentin 100 mg capsule 200 mg PO DAILY@1200 03/26/23 03/26/23 gabapentin 100 mg capsule 300 mg PO BEDTIME 03/26/23 03/26/23 ketoconazole 2 % topical cream 1 appl topical DAILY 03/26/23 03/26/23 levothyroxine 137 mcg tablet 137 mcg PO DAILY@0600 03/26/23 03/26/23 nystatin 100,000 unit/gram topical 1 appl topical BID PRN Rash 03/26/23 03/26/23 powder simethicone 125 mg chewable tablet 125 mg PO QIDWMHS PRN gas 03/26/23 03/26/23 torsemide 20 mg tablet 20 mg PO BID@0900,1600 03/26/23 03/26/23 Previous Rx's ?Medication ?Instructions ?Recorded bupropion HCl 300 mg 24 hr tablet, 1 tab PO DAILY #90 tabs 10/22/20 extended release hydroxyzine HCl 50 mg tablet 50 mg PO DAILY PRN anxiety #90 tabs 12/17/20 fluconazole 100 mg tablet 100 mg PO DAILY #3 tabs 05/25/23 ketoconazole 2 % topical cream 1 appl topical BID #30 grams 05/25/23 diclofenac sodium 1 % topical gel 2 g topical QID #50 grams 04/11/25 (Arthritis Pain (diclofenac)) Allergies Allergy/AdvReac Type Severity Reaction Status Date / Time lisinopril (LISINOPRIL) Allergy Intermediate RASH Verified 04/11/25 08:08 quetiapine (From SEROQUEL) Allergy Intermediate RASH Verified 04/11/25 08:08 sertraline (From ZOLOFT) Allergy Intermediate RASH, Verified 04/11/25 08:08 DIZZINESS loratadine (From CLARITIN) Allergy Mild UNKNOWN Verified 04/11/25 08:08 methimazole (From TAPAZOLE) Allergy Mild RASH Verified 04/11/25 08:08 potassium chloride Allergy Unknown Unknown Verified 04/11/25 08:08 propranolol (PROPRANOLOL) AdvReac Severe anergy Verified 04/11/25 08:08 Review of Systems Review of Systems: As per HPI Yes all other systems are reviewed and are negative Constitutional: Constitutional: Reports as per HPI [facility] Past Medical History Medical History PTSD (post-traumatic stress disorder) Recurrent major depression-severe Family History Family History Other Depression Social History Social History Household Members Other:: Lives with her cat Housing: Apartment Are you a primary career development associate to a significant other at home: No Do you presently have visiting nurse or other home services: Yes Alcohol intake: never Smoked in Last 30 Days: No Use of substances other than those prescribed or required for medical reasons: No Advance Directives: Yes Advance Directives on File: Yes Advance Directives Date on File: 03/26/23 Physical Exam ED Vital Signs: Vital Signs - 24 hr 04/11/25 08:03 04/11/25 10:00 Temperature 97.9 F Pulse Rate 73 68 Respiratory Rate 19 19 Blood Pressure 126/60 104/33 L Pulse Oximetry 96 96 Oxygen Delivery Method Room Air Room Air BMI result Body Mass Index 45.7 Vital signs have been reviewed and appear to be correct. Blood pressure normal. Heart rate normal. Respiratory rate normal. Temperature normal. Oxygen saturation normal. Const General: cooperative, healthy appearing and no acute distress Nutritional Appearance: obese Orientation/consciousness: oriented to person, oriented to place, oriented to time and patient oriented x3 Limitations: no limitations HENVA Head: Yes normocephalic, Yes atraumatic, No Knox's sign and No periorbital ecchymosis Ears: external ears normal General nose exam: Normal external nose present Face and sinus: Yes face symmetric Mouth: oropharynx normal and moist mucous membranes Throat: Yes uvula midline Eyes Pupils: Equal, round and reactive pupils present Neck Neck: Yes normal visual inspection and Yes supple Resp Effort & Inspection: normal respiratory effort and able to speak in complete sentences Auscultation: clear to auscultation bilaterally Cardio Rate: regular rate Rhythm: regular rhythm Heart sounds: S1 normal heart sound present and S2 normal heart sound present GI Palpation (GI): Soft to palpation and nontender Auscultation: normoactive bowel sounds General: Yes no CVA tenderness Back/Spine/Pelvis Back: no CVA tenderness Cervical Spine: normal cervical lordosis, cervical ROM normal, No cervical muscular tenderness, No pain with cervical ROM, No Cervical spine tenderness and No step off deformity Thoracic/Lumbar Spine: thoracic and lumbar spine normal to inspection, thoraco-lumbar ROM normal, No pain with thoraco-lumbar ROM, No thoracic spinal tenderness and No lumbar spinal tenderness Pelvis: no pain with anterior-posterior compression and no pain with lateral compression Skin General skin exam: elasticity normal and turgor normal Neuro General: oriented to person, oriented to place, oriented to time, patient oriented x3, gait normal, tone normal, moves all extremities, Normal light touch and pain sensation, no focal motor deficits, CN's II-XI intact bilaterally and deep tendon reflexes 2+ bilaterally Cranial nerves: Yes Equal, round and reactive pupils present Cognition (Neuro): normal cognition Motor exam (neuro): 5/5 motor strength present throughout, Normal motor muscle tone present throughout and Motor abnormalities not present Sensory Exam: Normal double simultaneous stimulation for sensation Extrem Other: circumferential ecchymosis to bilateral lower legs, see photo General: Yes full ROM, Yes no pedal edema and Yes no calf tenderness Right lower extremity: foot Details: normal capillary refill, toes with normal ROM and vascular exam Details: dorsalis pedis pulse present, posterior tibial pulse present and normal capillary refill Left lower extremity: foot Details: normal capillary refill, toes with normal ROM and vascular exam Details: dorsalis pedis pulse present, posterior tibial pulse present and normal capillary refill Psych Mental Status: mental status grossly normal Affect: normal affect Thought process: Normal thought process present Medical Decision Making Medical Decision Making MDM Narrative: Patient is a 75-year-old female with history HTN, asthma, hypothyroidism, PTSD, recurrent major depression presenting to the emergency department with complaint of bilateral knee and lower leg pain. On exam patient is awake, A+Ox3, VS WNL, afebrile, normal neurological exam without focal deficits, physical exam findings as above. Given reported symptoms and physical exam findings, initial differential includes but is not limited to ICH, skull fracture, knee contusions versus fracture, lower leg contusions, DVT. No findings on physical exam suggestive of compartment syndrome. CT head is without evidence of ICH or skull fracture. Bilateral knee x-rays without evidence of fracture. Bilateral lower extremity ultrasounds without evidence of DVT. My interpretation is in agreement with the radiologist's interpretation. Results discussed with patient and all questions answered. Offered physical therapy evaluation, however, patient declined and states she feels safe at home. She states that she lives in a small apartment and has care from her banana handler as well as her brother. Advised follow up with PCP. Return precautions discussed. Patient verbalized understanding of and agreement with plan. Differential Diagnosis Differential Diagnoses: The differential diagnosis associated with the presentation includes as per doctors hospital Admission/Observation Consideration of admission/observation: Escalation of care including admission/observation considered Patient would have been admitted to the hospital had their clinical presentation warranted hospital admission. Independent Interpretation I performed an independent interpretation of an: Plain X-Ray, Ultrasound and CT Scan Interpretation: CT head is without evidence of ICH or skull fracture. Bilateral knee x-rays without evidence of fracture. Bilateral lower extremity ultrasounds without evidence of DVT. Radiology Impression Discussion of test interpretation with radiology: I have reviewed the radiologist's reading. Radiologist Impression: XR/XR knee LT 4V IMPRESSION: Moderate to severe tricompartmental osteoarthrosis involving mostly the medial compartment. No acute fracture or dislocation. XR/XR knee RT 4V IMPRESSION: No acute fracture or dislocation. Tricompartmental osteoarthrosis, moderate to severe involving mostly the medial compartment. CT/CT head/brain wo IV con IMPRESSION: No acute fracture, bony calvarium. No acute intracranial hemorrhage. US/US venous duplex LE BI IMPRESSION: No evidence of deep venous thrombosis involving the bilateral lower extremities. External Record Review External record reviewed: Inpatient record, Office record and Outpatient record Discharge Plan Discharge Clinical Impression: Contusion of left lower leg, Contusion of lower leg, right, Fall Patient Disposition: Home, Self-Care Instructions: Fall Prevention for Older Adults (ED), Contusion in Adults (ED), Fall Prevention (ED) Additional Instructions: You were evaluated in the emergency department today for injuries after a fall. Your evaluation including CT scan of your brain, x-rays of both knees, as well as ultrasounds of both lower legs did not show evidence of conditions requiring emergent medical treatment at this time. There was no evidence of bleeding in your brain, skull fracture, knee fractures, or blood clots in your leg. We recommend that you keep your legs elevated while at rest. You are being prescribed a topical medication that you can apply to your legs as needed for pain. Follow up with your primary care provider. Return to the emergency department with worsening swelling, new numbness or tingling in your legs, chest pain, palpitations, shortness of breath, for any other new or concerning symptoms. Prescriptions: New diclofenac sodium [Arthritis Pain (diclofenac)] 1 % gel 2 g topical QID Qty: 50 0RF Rx Instructions: apply to single elbow, wrist or hand; for hand includes palm/fingers/back of hand No Action carvedilol 25 mg tablet 1 tab PO BID aspirin 81 mg tablet,chewable 1 tab PO DAILY albuterol sulfate 90 mcg/actuation HFA aerosol inhaler 2 puff PO Q4H PRN (Reason: wheezing) losartan 100 mg tablet 1 tab PO DAILY rosuvastatin 5 mg tablet 1 tab PO BEDTIME cholecalciferol (vitamin D3) [Vitamin D3] 25 mcg (1,000 unit) tablet 1 tab PO DAILY bupropion HCl 300 mg tablet extended release 24 hr 1 tab PO DAILY Qty: 90 0RF hydroxyzine HCl 50 mg tablet 50 mg PO DAILY PRN (Reason: anxiety) Qty: 90 0RF ketoconazole 2 % cream 1 appl topical BID Qty: 30 0RF fluconazole 100 mg tablet 100 mg PO DAILY Qty: 3 0RF fluvoxamine 100 mg tablet 300 mg PO BEDTIME levothyroxine 137 mcg tablet 137 mcg PO DAILY@0600 torsemide 20 mg tablet 20 mg PO BID@0900,1600 allopurinol 100 mg tablet 100 mg PO DAILY baclofen 10 mg tablet 10 mg PO TID PRN (Reason: Muscle Spasm) amlodipine 10 mg tablet 10 mg PO DAILY simethicone 125 mg tablet,chewable 125 mg PO QIDWMHS PRN (Reason: gas) gabapentin 100 mg capsule 200 mg PO DAILY@1200 gabapentin 100 mg capsule 300 mg PO BEDTIME nystatin 100,000 unit/gram powder 1 appl topical BID PRN (Reason: Rash) Rx Instructions: apply to affected areas under breast or leg folds estradiol 0.01 % (0.1 mg/gram) cream 1 appl vaginal Q OTHER DAY ketoconazole 2 % cream 1 appl topical DAILY clotrimazole 1 % cream 1 appl topical DAILY PRN (Reason: Rash) Rx Instructions: apply to affected areas aripiprazole 5 mg tablet 10 mg PO DAILY Farxiga 10 mg tablet 10 mg PO DAILY Trelegy Ellipta 200-62.5-25 mcg blister with device 1 ea inhalation DAILY Print Language: Swedish
[2025-04-11 10:00] VITALS: BP 104/33; PULSE 68; RESP 19; O2SAT 96
--- OUTSIDE RECORDS SUMMARY | 2025-04-11 10:39 | XMS_ITS | Encounter Summary ---
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 Name Role Phone Raven Lyons MD Primary Care Provider + Encounter Details Date Type Department Care Team (Late st Contact Info) Description 03/04/2023 Telephone [facility] [address] [place] [address] Jemima Gordillo Social History Tobacco Use Types Packs/Day Years Used Date Smoking Tobacco: Never Smokeless Tobacco: Never Alcohol Use Standard Drinks/Week Comments No 0 (1 standard drink = 0.6 oz pur e alcohol) Comments Unknown Sex and Gender Information Value Date Recorded Sex Assigned at Not on file Legal Sex Female 4:56 PM EST Gender Identity Not on file Sexual Orientation Not on file documented as of this encounter Miscellaneous Notes * Telephone Encounter - Jemima Gordillo - 03/04/2023 9:42 AM EDT PT notified. * Telephone Encounter - Jemima Gordillo - 03/04/2023 9:09 AM EDT PT called inquiring about the name of a medical supply that she said Dr. Chua had told her aboutthat helps with swelling. PT would like a CB on the name of it. documented in this encounter Plan of Treatment Not on file documented as of this encounter Visit Diagnoses Not on filedocumented in this encounter Care Teams Finishing Range Supervisor Relationship Specialty Start Date End Date Raven Lyons MD [address] [place] [address] PCP - General Dental Cardiology Coordinator 06/03/23 documented as of this encounter
--- OUTSIDE RECORDS SUMMARY | 2025-04-11 10:39 | XMS_ITS | Data Portability ---
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 I provided real-time medical direction for this encounter and was immediately available to provide additional phone-based assistance as needed. 73F with CHF, heart disease, presenting with minor rash to arm and chiu. No fevers. no significant pain. no new ingestions, no exposure to insects or bites. O/E normal vitals, pruitic macules noted to wrist and chiu, no significant surrounding erythema or swelling. No warmth, no discharge. Overall pt well appearing, non toxic in appearance, no acute distress. Rash appears minor, possible contact dermatitis vs insect bite. No superimposed cellulitis Recommend hydration cream and hydrocortisone PRN. Pt advise to minimize scratching. Red flags and return precautions discussed. paysola Not available 06/30/2023 19:42:16 10/10/2024 10/10/2024 I have reviewed and agree with the assessment and plan as documented by the assistant prosecuting attorney. I provided real-time medical direction for this encounter and was immediately available to provide additional phone-based assistance as needed. History as noted in EMR and by assistant prosecuting attorney. I would add / emphasize: Patient seen for pruritic rash to the right side of her face. Has been present for the last 3 days. Has been trialing OTC cortisone without significant improvement. No significant pain or previous change in quality of rash. No fevers chills or myalgias. Review of clinical images suggest rash most likely atopic dermatitis and will trial course of lower potency prescription topical corticosteroid given facial involvement and have patient follow-up with primary care. No mucosal involvement or eye involvement and red flags discussed with patient regarding need to seek urgent evaluation for rapidly worsening symptoms. pallfather Not available 10/12/2024 06:44:37 04/06/2025 04/06/2025 I have reviewed and agree with the assessment and plan as documented by the assistant prosecuting attorney. I provided real-time medical direction for this encounter and was immediately available to provide additional phone-based assistance as needed. History as noted in EMR and by assistant prosecuting attorney. I would add / emphasize: Patient with history of somewhat limited mobility who uses a walker is seen after suspected mechanical fall while walking in a restaurant with her walker yesterday. EMS was called and assisted her to her feet. She reports landing on her knees when she fell without head strike or neck strike. She is not anticoagulated per her report. She denies focal weakness numbness or tingling bowel or bladder symptoms. Her primary complaints are some upper back discomfort and bilateral knee discomfort. AVSS afebrile and well-appearing per report with ecchymosis to the bilateral knees. She is able to ambulate with her walker per her report. Had extensive conversation regarding risk versus benefit of ED presentation for consideration of imaging versus continued monitoring of symptoms at home. Reviewed that we are unable to rule out occult fracture or compression fracture of the spine at home but that given she is ambulatory without focal neurologic deficits and pain is manageable that PCP follow-up for consideration of imaging would also be reasonable. Patient elects to remain at home and monitor symptoms with plan for close PCP follow-up. Red flags that should prompt presentation to the emergency department discussed multiple times and patient voices clear understanding of these. Patient would benefit from facilitation of close PCP follow-up pallfather Not available 04/06/2025 15:47:15 Plan of Treatment Reminders Order Date Submit Date Provider Last Modified By Organization Details Last Modified Time Details Appointments None recorded. Lab None recorded. Referral None recorded. Procedures None recorded. Surgeries None recorded. Imaging None recorded. Medication Orders desonide 0.05 % topical ointment 2024 025 [id number], [address] [place], [address], 5 16:01:44 hydrocortis one 1 % topical cream 2022 023 [id number], [address] [place], [address], 3 19:42:28 nystatin 100,000 unit/gram topical powder 2022 023 [id number], [address] [place], [address], 3 14:43:19 hydrocortis one 2.5 % topical cream 2022 023 [id number], [address] [place], [address], 3 14:43:18 Patient TargetsNo targets recorded. Patient InstructionsNo instructions recorded. Reason for Referral None Reported. Medical Equipment None Reported. Allergies Allergen ID Allergen Name Allergen Category Reaction Reaction Severity Criticality Documentation Date Start Date Code Code System Note Provider Name and Address Organization Details Recorded Time 20325 lisinopri l medicatio n Not available Not available Not available 10/10/2024 84013 RxNorm Not Available [facility] - production 5 11:33:21 19821 Seroquel medicatio n Not available Not available Not available 10/10/2024 17079 RxNorm Not Available [facility] - production 5 11:33:21 12896 Claritin medicatio n Not available Not available Not available 10/10/2024 64221 6 RxNorm Not Available [facility] - production 5 11:33:21 Medications Name Sig Start Date Stop Date Status Note LastModified by Organization Details LastModified Time vitamin d3 25 mcg (1000u) t active Not Available Not Available No t Available Prescription - Renewal active Not Available Not Available No t Available losartan 50 mg tablet TAKE 1 TABLET BY MOUTH EVERY DAY active Not Available Not Available No t Available fluconazole 100 mg tablet TAKE 1 TABLET BY MOUTH DAILY active Not Available Not Available Not Available levothyroxin e 137 mcg tablet active Not Available Not Available Not Available carvedilol 25 mg tablet TAKE 1 TABLET BY MOUTH TWICE A DAY active Not Available Not Available No t Available torsemide 20 mg tablet TAKE 2 TABLETS BY MOUTH EVERY DAY active Not Available Not Available No t Available trazodone 50 mg tablet active Not Available Not Available No t Available fluconazole 150 mg tablet TAKE 1 TABLET BY MOUTH ONCE active Not Available Not Available N ot Available meloxicam 15 mg tablet TAKE 1 TABLET BY MOUTH EVERY DAY, TAKE WITH FOOD OR WATER active Not Available Not Available No t Available metformin 850 mg tablet TAKE 1 TABLET BY MOUTH EVERY MORNING active Not Available Not Available No t Available metolazone 5 mg tablet TAKE 1 TABLET BY MOUTH EVERY OTHER DAY TAKE 1/2 HOUR BEFORE TORESEMIDE IN THE MORNING active Not Available Not Available No t Available potassium chloride ER 10 mEq tablet,exten ded release TAKE 1 TABLET BY MOUTH EVERY DAY active Not Available Not Available No t Available hydroxyzine HCl 50 mg tablet TAKE 1 TABLET BY MOUTH 3 TIMES A DAY NEEDED NEEDED FOR ITCHING active Not Available Not Available Not Available amlodipine 5 mg tablet TAKE 1 TABLET BY MOUTH EVERY DAY active Not Available Not Available No t Available allopurinol 100 mg tablet TAKE 1 TABLET BY MOUTH EVERY DAY active Not Available Not Available No t Available peg-electrol yte solution 420 gram oral solution DRINK 240ML EVERY 15 MINUTES UNTIL GONE active Not Available Not Available N ot Available aspirin 81 mg tablet,delay ed release TAKE 1 TABLET BY MOUTH EVERY DAY active Not Available Not Available No t Available tramadol 50 mg tablet TAKE 1 TABLET BY MOUTH EVERY 12 HOURS FOR 5 DAYS NEEDED FOR MODERATE PAIN active Not Available Not Available No t Available triamcinolon e acetonide 0.1 % topical cream active Not Available Not Available Not Available spironolacto ne 25 mg tablet TAKE 1 TABLET BY MOUTH EVERY DAY FOR 5 DAYS active Not Available Not Available No t Available desonide 0.05 % topical ointment APPLY SPARINGLY AND RUB GENTLY INTO THE AFFECTED AREA(S) BY TOPICAL ROUTE 2 TIMES PER DAY for 1 week 2024 active Not Available Not Available Not [facility] Ear Wax Removal Kit 6.5 % drops INSTILL 5 DROPS INTO EACH EAR 2 TIMES A DAY FOR 4 DAYS active Not Available Not Available N ot Available baclofen 10 mg tablet TAKE 1 TABLET NEEDED 3 TIMES A DAY NEEDED FOR MUSCLE PAIN active Not Available Not Available No t Available amlodipine 10 mg tablet TAKE 1 TABLET BY MOUTH EVERY DAY FOR 30 DAYS. STOP 5MG active Not Available Not Available No t Available fluvoxamine 100 mg tablet TAKE ONE AND A HALF TABLETS BY MOUTH EVERY DAY active Not Available Not Available No t Available hydrocortiso ne 1 % topical cream APPLY THIN COAT TO AFFECTED AREA TWICE A DAY active Not Available Not Available No t Available levothyroxin e 125 mcg tablet TAKE 1 TABLET BY MOUTH EVERY DAY active Not Available Not Available No t Available levothyroxin e 150 mcg tablet active Not Available Not Available Not Available gabapentin 300 mg capsule TAKE 1 CAPSULE BY MOUTH TWICE A DAY FOR 30 DAYS active Not Available Not Available No t Available aspirin 81 mg chewable tablet TAKE 1 TABLET BY MOUTH EVERY DAY active Not Available Not Available No t Available simethicone 125 mg chewable tablet Take 1 tablet every 8 hours as needed for gas active Not Available Not Available No t Available hydrocortiso ne 2.5 % topical cream APPLY TOPICALLY 3 TIMES A DAY FOR 14 DAYS USE A THIN FILM TO AFFECTED SKIN AND RUB IN COMPLETELY active Not Available Not Available N ot Available amoxicillin 250 mg capsule TAKE 1 CAPSULE BY MOUTH 3 TIMES A DAY UNTIL GONE active Not Available Not Available N ot Available gabapentin 100 mg capsule TAKE 1 CAPSULE BY MOUTH TWICE A DAY AND 3 AT BEDTIME active Not Available Not Available N ot Available nystatin 100,000 unit/gram topical powder APPLY TO THE AFFECTED AREA(S) BY TOPICAL ROUTE 2 TIMES PER DAY active Not Available Not Available No t Available estradiol 0.01% (0.1 mg/gram) vaginal cream INSERT 1 GRAM VAGINALLY EVERY NIGHT FOR 1 WEEKS, THEN TWICE PER WEEK active Not Available Not Available No t Available methylpredni solone 4 mg tablets in a dose pack TAKE 6 TABLETS ON DAY 1 DIRECTED ON PACKAGE AND DECREASE BY 1 TAB EACH DAY FOR A TOTAL OF 6 DAYS active Not Available Not Available No t Available albuterol sulfate HFA 90 mcg/actuatio n aerosol inhaler INHALE 2 PUFFS EVERY 4 HOURS NEEDED FOR WHEEZING active Not Available Not Available No t Available ketoconazole 2 % topical cream APPLY TOPICALLY 2 TIMES A DAY active Not Available Not Available Not Available losartan 100 mg tablet TAKE 1 TABLET BY MOUTH EVERY DAY active Not Available Not Available No t Available fluticasone propionate 50 mcg/actuatio n nasal spray,suspen eladio USE 1 SPRAY IN EACH NOSTRIL TWICE A DAY active Not Available Not Available Not Available metformin ER 500 mg tablet,exten ded release 24 hr TAKE 1 TABLET BY MOUTH EVERY DAY active Not Available Not Available No t Available clotrimazole 1 % topical cream APPLY 2 TIMES A DAY TO RIGHT UPPER THIGH/HIP AREA active Not Available Not Available No t Available dextroamphet amine-amphet amine 5 mg tablet active Not Available Not Available Not Available ciclopirox 0.77 % topical cream APPLY TO AFFECTED AREA ON FEET TWICE DAILY active Not Available Not Available No t Available aripiprazole 10 mg tablet active Not Available Not Available Not Available aripiprazole 5 mg tablet active Not Available Not Available Not Available rosuvastatin 5 mg tablet TAKE 1 TABLET BY MOUTH EVERY DAY active Not Available Not Available No t Available bupropion HCl XL 300 mg 24 hr tablet, extended release TAKE 1 TABLET BY MOUTH EVERY DAY IN THE MORNING active Not Available Not Available No t Available Advair HFA 230 mcg-21 mcg/actuatio n aerosol inhaler INHALE 2 PUFFS TWICE A DAY active Not Available Not Available No t Available aripiprazole 2 mg tablet TAKE 1 TABLET BY MOUTH EVERY DAY active Not Available Not Available No t Available cholecalcife rol (vitamin D3) 25 mcg (1,000 unit) tablet TAKE 1 TABLET BY MOUTH EVERY DAY active Not Available Not Available No t Available Symbicort 160 mcg-4.5 mcg/actuatio n HFA aerosol inhaler active Not Available Not Available Not Available diclofenac 1 % topical gel APPLY 2G TOPICALLY 4 TIMES A DAY NEEDED FOR PAIN NOT TO EXCEED 8 TIMES DAILY active Not Available Not Available Not Available ketorolac 30 mg/mL injection solution Inject 15 mg by intravenous route. 2022 active Not Available Not Available Not Avai lable Farxiga 10 mg tablet TAKE 1 TABLET BY MOUTH EVERY DAY active Not Available Not Available No t Available Trelegy Ellipta 200 mcg-62.5 mcg-25 mcg powder for inhalation INHALE 1 PUFF BY MOUTH ONCE DAILY AT THE SAME TIME EVERY DAY, RINSE MOUTH OUT AFTER USE active Not Available Not Available No t Available Athlete's Foot 2 % topical spray APPLY 1 APPLICATION EXTERNALLY TWICE A DAY FOR 14 DAYS active Not Available Not Available Not Available Vitals Date Recorded Body weight Oxygen saturation Oxygen saturation in Arterial blood by Pulse oximetry Body height Body temperature Respiratory rate Heart rate Systolic And Diastolic Provider Name and Address Organization Details Last Updated DateTime 5 620699 g 94 % 94 % 162.56 cm 98.1 [degF] 16 /min 74 /min 139/71 mm[Hg] Not Available [facility] - production 5 15:56:41 Date Recorded Respiratory rate Heart rate Body weight Body height Body temperature Oxygen saturation Oxygen saturation in Arterial blood by Pulse oximetry Systolic And Diastolic Provider Name and Address Organization Details Last Updated DateTime 5 14 /min 74 /min 816850. 6 g 167.64 cm 97.7 [degF] 96 % 96 % 124/68 mm[Hg] Not Available [facility] 5 14:51:48 Date Recorded Heart rate Oxygen saturation Oxygen saturation in Arterial blood by Pulse oximetry Respiratory rate Body temperature Systolic And Diastolic Provider Name and Address Organization Details Last Updated DateTime 4 90 /min 97 % 97 % 16 /min 97.9 [degF] 167/83 mm[Hg] Not Available [facility] 4 15:54:19 Date Recorded Heart rate Respiratory rate Body weight Body temperature Oxygen saturation Oxygen saturation in Arterial blood by Pulse oximetry Systolic And Diastolic Provider Name and Address Organization Details Last Updated DateTime 3 70 /min 16 /min 677357. 84 g 97.5 [degF] 94 % 94 % 164/84 mm[Hg] Not Available [facility] 3 14:41:13 Date Recorded Oxygen saturation Oxygen saturation in Arterial blood by Pulse oximetry Heart rate Body temperature Respiratory rate Body height Body weight Systolic And Diastolic Provider Name and Address Organization Details Last Updated DateTime 3 98 % 98 % 90 /min 98.4 [degF] 14 /min 167.64 cm 181684. 2 g 134/86 mm[Hg] Not Available [facility] 3 19:37:33 Social History None recorded. Functional Status None recorded. Mental Status None recorded. Family History Nothing Reported. Medical History No medical history recorded. Gynecological HistoryNo gynecological history recorded. Obstetrics History GPAL:G 0 P 0 0 0 0 Past Encounters Encounter ID Performer Location Encounter Start Date Encounter Closed Date Diagnosis/Indication Diagnosis SNOMED-CT Code Diagnosis ICD10 Code Diagnosis Note [id number] Rebeka Mosquera MD [facility] [address] [place] [address] [phone] 0 12/17/2021 17:53:07 05/29/2022 16:26:35 Dyspnea on exertion 96708163 R06.09 [id number] Fortunato Pickett MD [facility] - [facility] [address] [place] [address] [phone] 0 01/19/2022 13:22:09 05/29/2022 14:39:18 Pain of right thigh 9060017792 20414 M79.651 Patient evaluated for 3 days of right thigh pain. There is no evidence of fluctuance , systemic infection, or deformity. She is able to walk and actually feels better walking. Suspect musculoske letal injury (muscle strain). She will treat conservati vely with tylenol and follow-up with PCP if symptoms do not improve. [id number] Aram Logan MD [facility] - [facility] [address] [place] [address] [phone] 0 05/07/2022 16:21:25 06/12/2022 17:03:03 Edema of lower extremity 969982926 R60.0 Reports longstandi ng history of RLE due to lymphedema , followed by a vascular team. Symptoms are unchanged today from baseline. Taking acetaminop hen and topical lidoderm for pain. Cannot take NSAIDs due to renal dysfunctio n. She sleeps in a chair with CPAP at baseline so unable to assess for orthopnea or PND. Lungs diminished due to habitus but no signs of pulmonary edema per assistant prosecuting attorney. Advised close continued follow-up with outpatient specialist s. [id number] Consuelo Bryson MD [facility] - [facility] [address] [place] [address] [phone] 0 06/15/2022 15:57:13 06/17/2022 13:52:04 Pain in lower limb 18468093 M79.606 chronic lymphedema , pain worse R>L over the past 3d. no worsening swelling, induration , rubor, or cyanosis. normal ROM. pain improving without interventi on since Thursday, but still there. followed by lymphedema team. not anticoagul ated, walks around at least every two hours. scheduled for u/s by primary team. awaiting compressio n wraps. unfortnu luque not much available for interventi on as she cannot recieve NSAIDs. reassured and educated on warning symptoms. [id number] Ned Viera MD [facility] - [facility] [address] [place] [address] [phone] 0 07/18/2022 14:35:58 07/22/2022 15:58:06 Edema of lower extremity 501535851 R60.0 Non-compli ant with meds. DIscussed with patient who agrees to take 20mg PO Torsemide BID. Discussed red flag symptoms for which to receive higher level of care. [id number] Francisco Romeo MD [facility] - [facility] [address] [place] [address] [phone] 0 07/22/2022 16:34:57 07/23/2022 12:03:47 Congestive heart failure 00557385 I50.9 [id number] Prasad Moore MD [facility] - [facility] [address] [place] [address] [phone] 0 08/13/2022 14:14:55 08/15/2022 10:45:39 Low blood pressure 26818987 I95.9 This 72-year-ol d female with a history of hypertensi on called [facility] because she thought her BP has been too low. She take 3 different BP medication s. Today her BP was stable without significan t postural changes. I suggested that she continue her usual treatments and follow-up with her PCP. The patient agreed with this plan. [id number] Trav Ca MD [facility] - [facility] [address] [place] [address] [phone] 08/28/2022 19:27:58 09/01/2022 11:07:10 [id number] Raisa Tejeda MD [facility] - [facility] [address] [place] [address] [phone] 0 02/08/2023 13:47:22 02/10/2023 14:37:06 Pain in buttock 693522140 M79.18 Evaluation in the field was performed by my assistant prosecuting attorney colleague, as noted above, I provided real-time direction and supervisio n for this visit. 73yo F p/w atraumatic R buttock pain described as shooting pain down R leg. Exam unremarkab le w/o skin breakdown, no associated low back pain, unable to try SLR test given pt habitus. Denies loss of bowel/blad dayanara control, unintentio nal wt loss. Most likely sciatic pain from MSK spasm DDx includes disk herniation , other spinal cord pathology vs piriformis syndrome. Recommend heat, topicals, APAP. Given toradol x1 given no clear contraindi cations to NSAIDs on pt hx and chart review (b/l Cr 1.0). Instructed her to call PCP tomorrow to discuss short course PO NSAIDs vs increasing gabapentin dose and PT referral. If no improvemet in sx may require imaging, close PCP f/up recommende d. We discussed the diagnostic uncertaint y of home visits and the risk associated with this. In this case, the patient and I felt this to be an acceptable and reasonable amount of risk given the benefit of avoiding an ED visit. We discussed the need to seek care urgently/e mergently in the setting of any new or worsening serious symptoms, shortness of breath, cough, chest pain, fever. Abdominal distension, gaseous 864362058 R14.0 Endorses gas w/o constipati on, no N/V. Help Desk Team Leader abd exam [place]. [id number] Tatiana Hartley MD [facility] [address] [place] [address] [phone] 0 05/26/2023 14:40:21 05/27/2023 11:07:30 Intertrigo 30855009 L30.4 73 year old female being evaluated for rash beneath both breasts for over a week, along with itchy rashes of the arms and torso for 2 weeks, since changing detergent. For the rash under the breasts, patient has been using nystatin powder, and went to the ER yesterday, where she was prescribed fluconazol e 100 mg daily x 3 doses, along with a topical antifungal . Patient started this regimen yesterday without any relief thus far. Patient denies fever/chil ls. Exam notable for normal vital signs, and an erythemato us region beneath the breasts, left worse than right, with a pronounced border. Several erythemato us patches are seen on the rigth arm and right side of the torso, without central clearing. Presentati on consistent with 1) intertrigo of breasts, minimal improvemen t with topical nystatin, therefore initiated on systemic fluconazol e in the ER. The regimen prescribed by the ER is atypical, as the recommende d treatment is fluconazol e 150 mg weekly x 4 weeks. Given patient has already taken 2/3 doses, advised to complete her course and FU with PCP if rash persists after 1 week, as may need to complete additional weekly dosing. 2) contact dermatitis , possibly secondary to new laundry detergent - prescribed topical steroids to be used BID x 2 weeks. [id number] Laura Casey MD Main - [address] [phone] 0 06/30/2023 19:37:25 06/30/2023 23:07:16 Pruritic rash [id number] L28.2 [id number] Tatiana Hartley MD Main - [address] [phone] 0 04/18/2024 15:54:06 04/18/2024 18:02:51 Discoloration of skin 8092944 R23.8 74 year old female being evaluated for skin discolorat ion of her leg. Patient's home health aid made the call due to concern for discolorat ion of the patient's leg, although patient denies any concerns, does not see anything on her leg and denies pain. Exam notable for normal vital signs, no bruising or discolorat ion on skin exam. Presentati on suggestive of skin discolorat ion of unclear etiology, resolved by the time of today's visit. Reassuranc e offered, recommend calling back if new concerns arise. I have reviewed and agree with the assessment and plan as documented by the assistant prosecuting attorney. I provided real-time medical direction for this encounter and was immediatel y available to provide additional phone-base d assistance as needed. We discussed the diagnostic uncertaint y of home visits and associated risks. We discussed the need to seek care urgently/e mergently in the setting of any new or worsening symptoms. [id number] Trav Ca MD Main - [address] [phone] 0 10/10/2024 15:56:35 10/12/2024 18:39:30 Pruritic rash 10009110 L28.2 [id number] Trav Ca MD [facility] ED Medical [address] [phone] 0 04/06/2025 14:51:42 04/06/2025 15:57:43 Fall W19.XXXS Health Concerns Section Related Observation LastModified by Organization Detai ls LastModified Time None Recorded Concern Status LastModified by Organization Details LastModified Time None Recorded Advance Directives Directive None Recorded Payers Insurance Date Sequence Insurance Name Policy Number Policy Lyons Covered Member ID Lyons Member ID Guarantor Name 03/03/2024 1 [facility] - DOS PRIOR TO 2022 - DUAL ELIGIBLE (MEDICARE REPLACEMENT/ADV ANTAGE - HMO) Sharon Jovanna [id number] Sharon Nugent 04/06/2025 1 [facility] - DOS ON OR AFTER 2022 - DUAL ELIGIBLE - JAIL OPTIONS AND ONE CARE (MEDICARE REPLACEMENT/ADV ANTAGE - HMO) Sharon Jovanna [id number] Sharon Nugent Notes Date Note Type Note Provider Name and Address Organization Details Recorded Time 05/26/2023 text/html [facility] Nursing Assessment: Reason For Request: Pt states outstanding rash underneath left side + right side breasts as well as on both arms>itchiness is grand especially on arms>denies pain>symptoms began 1 week ago. Chief Complaints: Wound Care PMH: CHF, COPD/Asthma, Heart Disease Comments: Verified address / identity Member has rash under bilateral breast, left worse than right. Member has had rash for over a week . Member has used cortisone and nystatin , has not helped. Member has moisture under area. Member has rash on arms that are itchy and red spots has been there for a week. Member has changed changed detergent in the last 2 weeks. Member has not had any changes in meds. Member has not done yard work. Member has had the shingles vax , no exposure .................... .................... .................... .................... .................... .................... .................... . Help Desk Team Leader Note From Jace Yoder: Pt reports rash under her breasts and in her ABD skin folds and her arms for about two weeks. Pt sts she went to the ED yesterday and was rx fluconazole 100mg qd for 3 days. Pt sts the rashes are very itchy and have not improved since staring the fluconazole. Pt denies CP, SOB, f/n/v/d. Pt is alert, NAD. VSS. Afebrile. Neuro exam and gait normal. Lungs CTA. ABD unremarkable. No LLE. [facility] contacted and sent rx for nystatin and hydrocortisone. Pt instructed to f/u with PCP next week if sx persist. .................... .................... .................... .................... .................... .................... .................... . Disposition: Fulfilled Tatiana Hartley MD [address] [place] [address],[address], [place], [address], [employer] 05/26/2023 20:59:53 06/30/2023 text/html CRC Nursing Assessment: Chief Complaints: Wound Care PMH: CHF, COPD/Asthma, Heart Disease Pain Assessment: Level 8 out of 10 Comments: Red areas to right calf yesterday and left thumb, wrist and shoulder. + itching and hot to touch. Denies fever/chills. No drainage. Painful 04/30 .................... .................... .................... .................... .................... .................... .................... . Help Desk Team Leader Note From Goyo Law: Pt caox3 seated in chair. Pt complains of itching painful spots, one on her right chiu, one on her left wrist. Pt states both appeared today, no trauma. Pt states she had a similar problem on her shoulder that was treated successfully with hydrocortisone cream. Pt denies any other pain or complaints. Pt pink warm and dry, pics of areas of complaint to [facility]. Right chiu appears to have a 2 inch area of red spots. No thot, no swelling or redness. Right wrist has an isolated wound with a scab, no heat or swelling or areas of diffuse redness in either. Skin intact. [facility] will Rx hydrocortisone cream to pt's local pharmacy. Red flags and pt education discussed. .................... .................... .................... .................... .................... .................... .................... . Disposition: Mabel Casey MD [address] [place] [address],[address], [place], [address] [employer] 06/30/2023 21:14:43 04/18/2024 text/html CRC Nurse Triage Notes (Ngozi Chapman): Reason For Request: Pt reporting bruising on her right leg, with purple discoloration>no pain associated Chief Complaints: Edema PMH: CHF, COPD/Asthma, Heart Disease Allergies: Unknown Comments: Datastage Developer verified the member's name//address and phone number. Member is a 74 yr old female PMH > CHF, no diuretic , DE 2018 / asthma Allergies > psych meds but unsure which , she will find the list Member calling for pain in right leg. Member does not think it is bruising as she has had it since last week. Per member is different from left leg. Member denies any injury or fall. Member does have swelling to the leg, warm to the touch, able to flex and put weight on the leg, denies any pain . Member is prescribed torsemide but does not take it as she doesnt not feel it helps. Per member she told her MD and was told to not worry about it, saw PCP and cards february 23. Member is on ASA but denies any blood thinners, no h/o DVT Education provided on the response time and the member was advised to monitor reported s/s and seek emergency treatment if needed .................... .................... .................... .................... .................... .................... .................... . Help Desk Team Leader Note From Jace Yoder: Consent not obtained due to the [employer] Dispatcher not expiring the consent link. Pt reports that her home health worker noticed some discoloration to her lower right leg. Pt sts she never saw any discoloration and still does not see anything. Home health worker not present for today s visit. Pt denies CP, SOB, SOFIA, pain in the leg, difficulty ambulating, f/n/v/d. Pt sts she has PCP f/u on . Pt is alert, NAD. VSS. Afebrile. Non focal neuro exam. Normal gait. Lungs CTA. Benign ABD exam. Trace BLE edema. Pt advised to call back if new sx present and discuss today s visit with the PCP on . Red flags reviewed. .................... .................... .................... .................... .................... .................... .................... . Disposition: Fulfilled Tatiana Hartley MD [address] [facility],[address], [place], [address], [employer] JAS 04/18/2024 16:02:47 10/10/2024 text/html CRC Nurse Triage Notes (Nicolasa Smith - RN): Reason For Request: Patient has a rash on her face wants checked out. Chief Complaints: Rash PMH: Congestive Heart Failure, COPD/Asthma, Coronary Artery Disease PMH Reviewed at 10/10/2024 Allergies Reviewed at 10/10/2024 Comments: 10/10 @ 11:27a- patient left a for call back, this nurse called back no answer, voice mail left with return call back number- AC 10/10 @ 11:30a- Patient returned called, and would like to place a referral, identified via name and . Patient with a bumpy rash to the right side of her face and behind her ear. She endorses the rash to be itchy, denies pain, +drainage behind her ear. No history of shingles. She denies any new products, foods or medications. She denies any lip or tongue swelling, no shortness of breath or difficulty swallowing. She has used hydrocortisone cream with no relief. She would like to be evaluated. .................... .................... .................... .................... .................... .................... .................... . Help Desk Team Leader Note From Eddie Rossi: [facility] visit for female pt. Pt presents complaining of itchy rash around her right ear for the last 3 days. Pt denies any recent changes to medications soaps or laundry detergents. Pt has been trying OTC hydrocortisone without improvement. Ear examined with obvious red rash on side of face near right ear. Some yellow crusty substance noticed as well. Image taken for [facility] review. V/S taken as listed. Pt afebrile. Consulted with [facility] Dr. Ca who prescribed topical cream and pt instructed to follow up with PCP later this week. Pt education provided. .................... .................... .................... .................... .................... .................... .................... . [facility] Consulted: Trav Ca .................... .................... .................... .................... .................... .................... .................... . Disposition: Fulfilled Trav Ca MD [address] [facility],[address], [place], [address], [employer] 10/12/2024 06:44:46 04/06/2025 text/html [facility] Nurse Triage Notes (Ngozi Chapman): Reason For Request: injury on knees from fall Denies: Falls with head strike and LOC Falls from a standing position, no LOC, patient is amnestic to the event Falls with isolated injury and deformity noted to limb Falls with inability to move post fall Cool extremities after fall or injury Weakness with fall, able to move all extremities Chief Complaints: Falls PMH: Congestive Heart Failure, COPD/Asthma, Coronary Artery Disease, Hypertension PMH Reviewed at 04/06/2025 - :08 Allergies Reviewed at 04/06/2025 - :08 Pain Assessment: Level 7 out of 10 Comments: 75 y.o female complains of Falls Pt had a fall yesterday. She denies hitting her head or LOC. She has pain in her upper pain in her back 03/30. She took tylenol. She has full ROM. She denies any change in vision or nausea. She takes ASA. She is aware that we dont offer imaging but would like an assessment I provided information on the mobile health provider response time and advised the patient and/or caregiver to monitor reported signs and symptoms. I discussed the warning signs of when to seek emergency care. .................... .................... .................... .................... .................... .................... .................... . Help Desk Team Leader Note From Goyo Law: Patient seated in chair. Patient complains of bilateral knee pain and upper back pain after a fall from standing yesterday. Patient reports mechanical fall while walking at restaurant, EMS were called for lift assist. Patient went home and the pain developed overnight, noticed this morning. Patient reports walking about apartment to bathroom with walker since fall. Patient denies loss of consciousness, hitting her head, neck, pain or any other pain or complaint. Patient denies numbness, tingling, weakness, dizziness, or any other pain or complaint. Patient, pink warm, dry, secondary exam unremarkable, negative increased work of breathing positive full sentences abdomen soft nontender extremities, pictured, good CSM, lower limbs. Bruising near knees, no additional heat some firmness and tenderness to area. Skin intact, no bleeding. [facility] discusses case with patient. Patient declines transportation. Watchful waiting and use of Tylenol discussed. Red flags, patient education discussed. Patient demonstrates understanding of care and plan, given an opportunity to ask questions. .................... .................... .................... .................... .................... .................... .................... . [facility] Consulted: Trav Ca .................... .................... .................... .................... .................... .................... .................... . Disposition: Fulfilled Trav Ca MD [address] [facility],[address], [place], [address], [facility] 04/06/2025 15:47:28 OBGyn Episode No OBEpisode recorded.
--- OUTSIDE RECORDS SUMMARY | 2025-04-11 10:39 | XMS_ITS | Continuity of Care Document ---
Author Name Raymundo Barraza Address [address] [place] [address] Organization Unknown Address [address] [place] [address] Medications No known medications Problems No known problems
--- OUTSIDE RECORDS SUMMARY | 2025-04-11 10:40 | XMS_ITS | Patient Health Record ---
Author Organization [facility] Address [address] [place] [address] Care Team Providers Care Agricultural Pilot Name Role Phone Raven Lyons Primary Care Provider Bibi Flores Unavailable [phone] Allergies Allergen (clinical drug ingredient) Drug/Non Drug Allergy documented on EMR Reaction Allergy Type Onset Date Status codeine codine (uncoded) rash Allergy Act vic lisinopril lesinopril (uncoded) Unknown Allergy Active loratadine Claritin rash Drug Allergy Active quetiapine SEROquel rash Drug Allergy Active Reason For Referral No Information Medications Medication SIG (Take, Route, Frequency, Duration) Notes Start Date End Date Status Torsemide 20 MG as directed Orally Active Medrol 4 MG as directed Orally 09/18/2021 Not-Taking Aspir-81 Once a day Active MRI . . . Left foot WO contrast Dx Metatarsalgia of left foot - M77.42 09/23/2021 Not-Taking Farxiga Active Trelegy Ellipta Not- Taking Losartan Potassium 100 MG 1 tablet Orally Once a day; Duration: 30 day(s) Active Crestor 5 MG Orally Not-Jeremy ing ARIPiprazole 5 MG Orally Once a day Active Metoprolol Succinate 25 MG Orally 2 x a day Not-Taking Levothyroxine Sodium 112 MCG Orally Once a day Active Multivitamin once a day Active Gabapentin 300 MG 1 capsule Orally Twice a day; Duration: 30 days 2 a day 3 at night 09/30/2021 Not-Taking Tylenol 500 mg Activ e Terbinafine HCl 1 % 1 application Externally Once a day; Duration: 30 days 10/07/2023 Not-Taking hydrOXYzine HCl 25 MG 1 tablet as needed Orally Active Chlorthalidone 25 MG Orally Once a day Not-Taking Ketoconazole 2 % APPLY DAILY TO SKIN TO AFFECTED AREA EVERY DAY FOR 30 DAYS; Duration: 30 Active Adderall Active Orthopedic Extra Depth Shoes With Custom Heat Molded Multidensity Innersoles as directed Wear Daily; Duration: as needed 07/08/2022 Active Atorvastatin Calcium 80 MG Orally 1 @ hs Not-Taking traMADol HCl 50 MG 1 tablet as needed Orally Every 6 hours; Duration: 14 days 09/30/2021 Active Nystatin 939329 UNIT/GM Externally Active Prazosin HCl 2 MG 2 capsules @ HS Orally Not-Taking Hydrocortisone 2.5 % as directed Externally to feet Twice a day; Duration: 30 days Active Ciclopirox Olamine 0.77 % 1 application to affected area Externally to feet Twice a day; Duration: 30 days Not-Taking Vitamin D 1000 UNIT Orally Active Vitamin B 12 1,000mcg Not-Taking Estradiol Active Clotrimazole-Betametha sone 1-0.05 % 1 application Externally Twice a day; Duration: 30 days 09/02/2019 Not-Taking Ciclopirox Olamine 0.77 % 1 application to affected area Externally to feet Twice a day; Duration: 30 days Active Lotrimin AF 2 % 1 application Externally Twice a day; Duration: 14 day(s) 09/18/2021 Active Ciclopirox Olamine 0.77 % 1 application to affected area Externally Twice a day to effected areas on feet; Duration: 30 days 04/12/2021 Active baclofin 10 mg once a day Not- Taking Carvedilol 25 MG 1 tablet with food Orally Twice a day; Duration: 30 day(s) Active Losartan Potassium 100 MG Orally Once a day Not-Taking OXcarbazepine 150 Mg AM/ 300 mg PM Orally Twice a day Active Advair HFA 230-21 MCG/ACT Inhalation Twice a day Not-Taking buPROPion HCl 300mg 1 daily Active metFORMIN HCl Not-Ta lyle Clopidogrel Bisulfate 75 MG Orally Once a day Not-Taking Baclofen 10 MG/20ML as directed Intrathecal Not-Taking Immunizations Vaccine Route Administration Date Status Comme nts COVID-19 Moderna Vaccine Unknown 07/21/2021 Administered First Dose: 11/30/20 Second Dose: 12/31/2020 Social History Tobacco Use: Social History Observation Description Date Details (start date - stop date) Never Smoker NA - NA Tobacco use other than smoking: Question Answer Notes Are you an other tobacco user? No Tobacco Control (Standard) Question Answer Notes Tobacco use: Nonsmoker Additional Findings: Tobacco non-user Current no nsmoker AUDIT-C (Standard) Question Answer Notes Did you have a drink containing alcohol in the p ast year? No Points 0 Interpretation Negative Problems Problem Type SNOMED Code ICD Code Onset Dates Problem Status W/U Status Risk Notes Problem Acquired hammer toe of right foot (7238262106978151) Other hammer toe(s) (acquired), right foot (M20.41) Active confirmed Problem Acquired hallux valgus (25527431) Hallux valgus (acquired), left foot (M20.12) Active confirmed Problem Acquired hammer toe of left foot (8096960126512607) Other hammer toe(s) (acquired), left foot (M20.42) Active confirmed Problem Acquired hammer toe of left foot (2259232306293323) Hammer toe of left foot (M20.42) Active confirmed Problem Localized, primary osteoarthritis of the ankle and/or foot (874300504) Osteoarthritis of right ankle and foot (M19.071) Active confirmed Problem Localized, primary osteoarthritis of the ankle and/or foot (636965554) Osteoarthritis of left ankle and foot (M19.072) Active confirmed Problem Bilateral atherosclerosis of arteries of lower limbs (disorder) (16646950201516402 ) Atherosclerosis of artery of both lower extremities (I70.203) Active confirmed Problem Gouty arthritis of left foot (7306797836583740) Gouty arthritis of left foot (M10.9) Active confirmed Vital Signs Blood pressure diastolic 80 mm Hg 02/14/2025 Height 5ft3in in 02/14/2025 Blood pressure systolic 120 mm Hg 02/14/2025 Weight 243 lbs 02/14/2025 BMI 43.04 kg/m2 02/14/2025 Encounters Encounter Location Date Provider Diagnosis [facility] [address] [address] 07/08/2024 Bibi Siddiqi Tinea pedis of both feet B35.3 ; Tinea unguium B35.1 ; Pain in right toe(s) M79.674 ; Pain in left toe(s) M79.675 and Atherosclerosis of artery of both lower extremities I70.[address] [facility] [address] 12/01/2024 Bibi Perica Pain in right toe(s) M79.674 ; Tinea unguium B35.1 ; Pain in left toe(s) M79.675 and Atherosclerosis of artery of both lower extremities I70.[address] [facility] [address] 02/14/2025 Bibi Perica Pain in right toe(s) M79.674 ; Tinea unguium B35.1 ; Pain in left toe(s) M79.675 and Atherosclerosis of artery of both lower extremities I70.[address] [address] 04/26/2024 Bibi Perica [address] [address] 10/25/2024 Bibi Perica [address] [address] 11/17/2024 Bibi Perica Assessments Encounter Date Diagnosis (ICD Code) Assessment Notes Treatment Notes Treatment Clinical Notes Section Notes 07/08/2024 Tinea unguium (ICD-10 - B35.1) 07/08/2024 Tinea pedis of both feet (ICD-10 - B35.3) 12/01/2024 Pain in right toe(s) (ICD-10 - M79.674) 02/14/2025 Pain in right toe(s) (ICD-10 - M79.674) 02/14/2025 Tinea unguium (ICD-10 - B35.1) 12/01/2024 Pain in left toe(s) (ICD-10 - M79.675) 12/01/2024 Tinea unguium (ICD-10 - B35.1) 07/08/2024 Pain in right toe(s) (ICD-10 - M79.674) 07/08/2024 Pain in left toe(s) (ICD-10 - M79.675) 12/01/2024 Atherosclerosis of artery of both lower extremities (ICD-10 - I70.203) 02/14/2025 Pain in left toe(s) (ICD-10 - M79.675) 02/14/2025 Atherosclerosis of artery of both lower extremities (ICD-10 - I70.203) 07/08/2024 Atherosclerosis of artery of both lower extremities (ICD-10 - I70.203) Plan Of Treatment Pending Test Test Name Order Date X ray : Foot, right 2V 02/12/2024 *Uric Acid, Serum 09/18/2021 ESR 09/18/2021 X ray : Foot, left 3V 10/18/2021 X ray : Foot, left 3V 12/31/2021 X ray : Foot, left 3V 06/11/2021 X ray : Foot, left 3V 09/03/2021 X ray : Foot, left 3V 09/18/2021 X ray : Foot, right 3V 09/03/2021 [id number] NAIL, 6 OR MORE 09/01/2018, [id number]/INJECT, JOINT/BURSA 1 11/04/2020 Next Appt Details Provider Name:Bibi whitaker, 04/26/2025 03:00:00 PM, [address] [facility], [place], [address], Insurance Providers Payer Name Payer Address Payer Phone Subscriber Number Group Number Insured Name Patient Relationship to Insured Coverage Start Date Coverage End Date [facility] [employer] Claims [address] [place] [id number] [phone] [id number] Sharon Nugent Self - patient is the insured Medical (General) History Medical History History ICD Code High blood pressure Cholesterol Anxiety Depression Sciatica asthma Obesity Surgical History Surgery Date(Month/Year) basel Cell 2009 Hospitalization History Reason Date(Month/Year) ER- anxiety, dizzy 01/13
--- NOTE | 2025-04-11 11:58 | PC.NURSE ---
Patient is a 75-year-old female with history HTN, asthma, hypothyroidism, PTSD, recurrent major depression presenting to the emergency department with complaint of bilateral knee and lower leg pain. She reports that she was ambulating with her walker on when she tripped and fell forward onto her knees in a restaurant. Since that time has developed ongoing pain and bruising. Alert and oriented. Respirations even and non-labored. Abdomen obese, soft, non-tender with positive bowel sounds. Positive pedal pulses with significant LE edema noted R>L. LE swollen with various stages of bruising noted from her knees down.
[2025-04-11 13:05] VITALS: BP 116/34; PULSE 79; RESP 18; TEMP 526.6; TEMP 980; O2SAT 96
== END 2025-04-11 13:07 | disposition home or self-care (01) ==
PROVIDERS: Emergency Provider Emergency Medicine; PCP Internal Medicine
DX: S80.12XA Contusion of left lower leg, initial encounter (principal); S80.11XA Contusion of right lower leg, initial encounter; W01.0XXA Fall on same level from slipping, tripping and stumbling without subsequent striking against object, initial encounter; M79.605 Pain in left leg; M79.604 Pain in right leg; M17.0 Bilateral primary osteoarthritis of knee; I10 Essential (primary) hypertension; J45.909 Unspecified asthma, uncomplicated; Z79.82 Long term (current) use of aspirin; Z79.02 Long term (current) use of antithrombotics/antiplatelets; Z79.899 Other long term (current) drug therapy; Y93.89 Activity, other specified; Y92.511 Restaurant or cafe as the place of occurrence of the external cause; Y99.9 Unspecified external cause status
CPT/HCPCS: 70450; 73564; 93970; 99284

== ENCOUNTER → 2025-04-11 08:06 | Outpatient (BNV) | payer OTHER, SELFPAY | PROVIDERS: Emergency Provider Emergency Medicine; Visit Provider Radiology Diagnostic Radiology | DX: S09.90XA Unspecified injury of head, initial encounter (principal); R22.43 Localized swelling, mass and lump, lower limb, bilateral; M17.0 Bilateral primary osteoarthritis of knee | CPT/HCPCS: 70450; 73564; 93970 ==

== ENCOUNTER 2025-04-14 12:17 | Inpatient (IN) | payer OTHER, SELFPAY ==
--- NOTE | ~2025-04-14 | XR_ITS ---
XR KNEE NAVI 4V HISTORY: Ecchymosis, rule out fracture. COMPARISON: 04/11/2025. TECHNIQUE: 4 views of each knee. FINDINGS: RIGHT KNEE: No fracture, dislocation, or suspicious bone lesion. No malalignment. Severe tricompartmental osteoarthrosis with [id number] appearance in the lateral compartment. Large marginal osteophytes present. There is subtle valgus angulation of the knee joint Tiny suprapatellar joint effusion present. There is diffuse subcutaneous soft tissue edema noted. Prepatellar soft tissue swelling. LEFT KNEE: No fracture, dislocation, or suspicious bone lesion. No malalignment. Severe tricompartmental osteoarthrosis with [id number] appearance in the medial compartment. Large marginal osteophytes present. Tiny suprapatellar joint effusion present. There is diffuse subcutaneous soft tissue edema noted. XR/XR Knee Navi 4V IMPRESSION: 1. No acute bony abnormalities of either knee. 2. Bilateral severe tricompartmental osteoarthritis with tiny suprapatellar joint effusions. 3. There is diffuse subcutaneous soft tissue edema bilaterally. Electronically signed by: Yusuf Pan MD 04/14/2025 04:12 PM EDT
--- NOTE | ~2025-04-14 | US_ITS ---
CLINICAL HISTORY: increase swelling Venous duplex ultrasound bilateral lower extremity Comparison: None provided Findings: The visualized deep veins are fully compressible with normal Doppler color flow and spectral tracings. Patient unable to tolerate full compression of the left femoral vein. Calf veins not well visualized. No popliteal cyst. IMPRESSION: 1. Negative for bilateral lower extremity deep vein thrombosis. This document has been electronically signed by: Thomas Calderon MD on 04/16/2025 11:13:39
--- NOTE | ~2025-04-14 | XR_ITS ---
EXAMINATION: XR FOOT, RIGHT CLINICAL INFORMATION: ecchymosis COMPARISON: None available. TECHNIQUE: AP, lateral, and oblique views of the right foot. FINDINGS: No fracture, dislocation, or suspicious bone lesion. Normal alignment. No significant arthrosis. Hammertoe deformities. Diffuse soft tissue edema. XR/XR foot RT 2V IMPRESSION: No acute bony abnormalities. Diffuse soft tissue edema. Electronically signed by: Yusuf Pan MD 04/14/2025 04:48 PM EDT
--- NOTE | ~2025-04-14 | XR_ITS ---
EXAMINATION: XR FOOT, LEFT CLINICAL INFORMATION: ecchymosis COMPARISON: None available. TECHNIQUE: AP, lateral, and oblique views of the left foot. FINDINGS: No fracture, dislocation, or suspicious bone lesion. Normal alignment. No significant arthrosis. Hammertoe deformities. Diffuse soft tissue edema. XR/XR foot LT 2V IMPRESSION: No acute bony abnormalities. Diffuse soft tissue edema. Electronically signed by: Yusuf Pan MD 04/14/2025 04:51 PM EDT
--- NOTE | ~2025-04-14 | XR_ITS ---
EXAMINATION: XR TIBIA AND FIBULA, BILATERAL CLINICAL INFORMATION: Ecchymosis, rule out fracture. COMPARISON: None available. TECHNIQUE: AP and lateral views of the each tibia and fibula were obtained. FINDINGS: No fracture, dislocation, or suspicious bone lesion in either lower leg. No malalignment. Imaged ankle joint is intact. Degenerative changes in the knee joints. Soft tissues demonstrate diffuse subcutaneous edema. XR/XR Tibia Fibula Navi 2V IMPRESSION: 1. No acute bony abnormalities in either tibia or fibula. 2. Diffuse subcutaneous soft tissue edema bilaterally. Electronically signed by: Yusuf Pan MD 04/14/2025 04:14 PM EDT
[2025-04-14 12:33] VITALS: BP 114/55; BP 127/55; PULSE 74; PULSE 78; RESP 14; TEMP 36.8; O2SAT 97; O2SAT 98; BMI 45.3
--- OUTSIDE RECORDS SUMMARY | 2025-04-14 13:46 | XMS_ITS | Encounter Summary ---
Author Organization [facility] Address [address] [place] [address] Phone Care Team Providers Care Fiber Design Engineer Name Role Phone Raven Lyons MD Primary Care Provider + Encounter Details Date Type Department Care Team (Late st Contact Info) Description 03/04/2023 Telephone [facility] [address] [place] [address] Jemima Gordillo Social History Tobacco [...] on filedocumented in this encounter Care Teams Fiber Design Engineer Relationship Specialty Start Date End Date Raven Lyons MD [address] [place] [address] PCP - General Dental Lei Maker 06/03/23 documented as of this encounter
--- OUTSIDE RECORDS SUMMARY | 2025-04-14 13:46 | XMS_ITS | Data Portability ---
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 I provided real-time medical direction for this [...] assessment and plan as documented by the owner. I provided real-time medical direction for this encounter and was immediately available to provide additional phone-based assistance as needed. History as noted in EMR and by owner. I would add / emphasize: Patient seen [...] assessment and plan as documented by the owner. I provided real-time medical direction for this encounter and was immediately available to provide additional phone-based assistance as needed. History as noted in EMR and by owner. I would add / emphasize: Patient with [...] desonide 0.05 % topical ointment 2024 025 [id number], [address] [place], [address], 5 16:01:44 hydrocortis one 1 % topical cream 2022 023 [id number], [address] [place], [address], 3 19:42:28 nystatin 100,000 unit/gram topical powder 2022 023 [id number], [address] [place], [address], 3 14:43:19 hydrocortis one 2.5 % topical cream 2022 023 [id number], [address] [place], [address], 3 14:43:18 Patient TargetsNo targets recorded. Patient InstructionsNo instructions recorded. Reason for Referral None Reported. Medical Equipment None Reported. Allergies Allergen ID Allergen Name Allergen Category Reaction Reaction Severity Criticality Documentation Date Start Date Code Code System Note Provider Name and Address Organization Details Recorded Time 38135 lisinopri l medicatio n Not available Not available Not available 10/10/2024 26309 RxNorm Not Available [facility] - production 5 11:33:21 85900 Seroquel medicatio n Not available Not available Not available 10/10/2024 38182 RxNorm Not Available [facility] - production 5 11:33:21 78980 Claritin medicatio n Not available Not available Not available 10/10/2024 66741 6 RxNorm Not Available [facility] - production [...] Address Organization Details Last Updated DateTime 5 719028 g 94 % 94 % 162.56 cm 98.1 [degF] 16 /min 74 /min 139/71 mm[Hg] Not Available [facility] - production 5 15:56:41 Date Recorded Respiratory rate Heart rate Body weight Body height Body temperature Oxygen saturation Oxygen saturation in Arterial blood by Pulse oximetry Systolic And Diastolic Provider Name and Address Organization Details Last Updated DateTime 5 14 /min 74 /min 974692. 6 g 167.64 cm 97.7 [degF] 96 % 96 % 124/68 mm[Hg] Not Available [facility] 5 14:51:48 Date Recorded Heart rate Oxygen saturation Oxygen saturation in Arterial blood by Pulse oximetry Respiratory rate Body temperature Systolic And Diastolic Provider Name and Address Organization Details Last Updated DateTime 4 90 /min 97 % 97 % 16 /min 97.9 [degF] 167/83 mm[Hg] Not Available [facility] 4 15:54:19 Date Recorded Heart rate Respiratory rate Body weight Body temperature Oxygen saturation Oxygen saturation in Arterial blood by Pulse oximetry Systolic And Diastolic Provider Name and Address Organization Details Last Updated DateTime 3 70 /min 16 /min 962922. 84 g 97.5 [degF] 94 % 94 % 164/84 mm[Hg] Not Available [facility] 3 14:41:13 Date Recorded Oxygen saturation Oxygen saturation in Arterial blood by Pulse oximetry Heart rate Body temperature Respiratory rate Body height Body weight Systolic And Diastolic Provider Name and Address Organization Details Last Updated DateTime 3 98 % 98 % 90 /min 98.4 [degF] 14 /min 167.64 cm 880468. 2 g 134/86 mm[Hg] Not Available [facility] 3 19:37:33 Social History None recorded. Functional [...] 726 Rebeka Mosquera MD Main - [facility] [address] [place] [address]71-258 0 12/17/2021 17:53:07 05/29/2022 16:26:35 Dyspnea on exertion 61477891 R06.09 1293 Fortunato Pickett MD Main - [facility] [address] [place] [address] 20191-300 0 01/19/2022 13:22:09 05/29/2022 14:39:18 Pain of right thigh 0570627300 97117 M79.651 Patient evaluated for 3 days of right thigh pain. There is no evidence of fluctuance , systemic infection, or deformity. She is able to walk and actually feels better walking. Suspect musculoske letal injury (muscle strain). She will treat conservati vely with tylenol and follow-up with PCP if symptoms do not improve. 3397 Aram Logan MD Main - [facility] [address] [place] [address]12-310 0 05/07/2022 16:21:25 06/12/2022 17:03:03 Edema of lower extremity 945247917 R60.0 Reports longstandi ng history of RLE [...] but no signs of pulmonary edema per owner. Advised close continued follow-up with outpatient specialist s. 4202 Consuelo Bryson MD Main - [facility] [address] [place] [address] 14869-192 0 06/15/2022 15:57:13 06/17/2022 13:52:04 Pain in lower limb 86120480 M79.606 chronic lymphedema , pain worse R>L [...] 4914 Ned Viera MD Main - [facility] [address] [place] [address] 96857-080 0 07/18/2022 14:35:58 07/22/2022 15:58:06 Edema of lower extremity 720581531 R60.0 Non-compli ant with meds. DIscussed with patient who agrees to take 20mg PO Torsemide BID. Discussed red flag symptoms for which to receive higher level of care. 5016 Francisco Romeo MD Main - [facility] [address] [place] [address] [phone] 0 07/22/2022 16:34:57 07/23/2022 12:03:47 Congestive heart failure 78955303 I50.9 5558 Prasad Moore MD Main - [facility] [address] [place] [address] 13004-512 0 08/13/2022 14:14:55 08/15/2022 10:45:39 Low blood pressure 03653835 I95.9 This 72-year-ol d female with a [...] 5986 Trav Ca MD Main - [facility] [address] [place] [address] 50675-466 0 08/28/2022 19:27:58 09/01/2022 11:07:10 [id number] Raisa Tejeda MD Main - [facility] [address] [place] [address] 63322-184 0 02/08/2023 13:47:22 02/10/2023 14:37:06 Pain in buttock 534622281 M79.18 Evaluation in the field was performed by my owner colleague, as noted above, I provided real-time [...] cough, chest pain, fever. Abdominal distension, gaseous 005968709 R14.0 Endorses gas w/o constipati on, no N/V. Airframe Technician abd exam [place]. [id number] Tatiana Hartley MD Main - [facility] [address] [place] [address]80-928 0 05/26/2023 14:40:21 05/27/2023 11:07:30 Intertrigo 06132956 L30.4 73 year old female being evaluated [...] to be used BID x 2 weeks. 09853 Laura Casey MD Main - [address] [address]45[address] 0 06/30/2023 19:37:25 06/30/2023 23:07:16 Pruritic rash 00088475 L28.2 74950 Tatiana Hartley MD Main - [address] [address] 0 04/18/2024 15:54:06 04/18/2024 18:02:51 Discoloration of skin 8592677 R23.8 74 year old female being evaluated [...] assessment and plan as documented by the owner. I provided real-time medical direction for this encounter and was immediatel y available to provide additional phone-base d assistance as needed. We discussed the diagnostic uncertaint y of home visits and associated risks. We discussed the need to seek care urgently/e mergently in the setting of any new or worsening symptoms. [id number] Trav Ca MD Main - [address] [address]554[address] 0 10/10/2024 15:56:35 10/12/2024 18:39:30 Pruritic rash 58735310 L28.2 85457 Trav Ca MD Main-[facility] ED [facility] [address] [address] 04/06/2025 14:51:42 04/06/2025 15:57:43 Fall W19.XXXS Health Concerns Section Related Observation LastModified by Organization Detai ls LastModified Time None Recorded Concern Status LastModified by Organization Details LastModified Time None Recorded Advance Directives Directive None Recorded Payers Insurance Date Sequence Insurance Name Policy Number Policy Lyons Covered Member ID Lyons Member ID Guarantor Name 03/03/2024 1 [facility] - DOS PRIOR TO 2022 - DUAL ELIGIBLE (MEDICARE REPLACEMENT/ADV ANTAGE - HMO) Sharon Jovanna [id number] Sharon Nugent 04/06/2025 1 [facility] - DOS ON OR AFTER 2022 - DUAL ELIGIBLE - [facility] [employer] AND ONE CARE (MEDICARE REPLACEMENT/ADV ANTAGE - HMO) Sharon Jovanna [id number] Sharon Nugent Notes Date Note Type Note [...] .................... .................... .................... .................... .................... .................... . Airframe Technician Note From Jace Yoder: Pt reports rash [...] normal. Lungs CTA. ABD unremarkable. No LLE. [facility] contacted and sent rx for nystatin and hydrocortisone. Pt instructed to f/u with PCP next week if sx persist. .................... .................... .................... .................... .................... .................... .................... . Disposition: Fulfilled Tatiana Hartley MD [address] [place] [address],[address], [place], [address], [facility] 05/26/2023 20:59:53 06/30/2023 text/html [facility] Nursing Assessment: Chief Complaints: Wound Care PMH: CHF, COPD/Asthma, Heart Disease Pain Assessment: Level 8 out of 10 Comments: Red areas to right calf yesterday and left thumb, wrist and shoulder. + itching and hot to touch. Denies fever/chills. No drainage. Painful 04/30 .................... .................... .................... .................... .................... .................... .................... . Airframe Technician Note From Goyo Law: Pt caox3 seated [...] dry, pics of areas of complaint to [facility]. Right chiu appears to have a 2 inch area of red spots. No thot, no swelling or redness. Right wrist has an isolated wound with a scab, no heat or swelling or areas of diffuse redness in either. Skin intact. [facility] will Rx hydrocortisone cream to pt's local pharmacy. Red flags and pt education discussed. .................... .................... .................... .................... .................... .................... .................... . Disposition: Mabel Casey MD [address] [place] [address],[address], [place], [address] 06/30/2023 21:14:43 04/18/2024 text/html [facility] Nurse Triage Notes (Ngozi Chapman): Reason For Request: Pt reporting bruising on her right leg, with purple discoloration>no pain associated Chief Complaints: Edema PMH: CHF, COPD/Asthma, Heart Disease Allergies: Unknown Comments: Director Advanced verified the member's name//address and phone number. Member is a 74 yr old female PMH > CHF, no diuretic , [place] 2018 / asthma Allergies > psych meds [...] .................... .................... .................... .................... .................... .................... . Airframe Technician Note From Jace Yoder: Consent not obtained [...] . Disposition: Fulfilled Tatiana Hartley MD [address] [facility],[address], [place], [address], [facility] 04/18/2024 16:02:47 10/10/2024 text/html [facility] Nurse [...] .................... .................... .................... .................... .................... .................... . Airframe Technician Note From Eddie Rossi: [facility] visit for female pt. Pt presents complaining of itchy rash around her right ear for the last 3 days. Pt denies any recent changes to medications soaps or laundry detergents. Pt has been trying OTC hydrocortisone without improvement. Ear examined with obvious red rash on side of face near right ear. Some yellow crusty substance noticed as well. Image taken for [facility] review. V/S taken as listed. Pt afebrile. Consulted with [facility] Dr. Ca who prescribed topical cream and pt instructed to follow up with PCP later this week. Pt education provided. .................... .................... .................... .................... .................... .................... .................... . [facility] Consulted: Trav Ca .................... .................... .................... .................... .................... .................... .................... . Disposition: Fulfilled Trav Ca MD [address] [facility],[address], [place], [address], [facility] 10/12/2024 06:44:46 04/06/2025 text/html [facility] Nurse Triage Notes (Ngozi Chapman): Reason [...] .................... .................... .................... .................... .................... .................... . Airframe Technician Note From Goyo Law: Patient seated in [...] tenderness to area. Skin intact, no bleeding. [facility] discusses case with patient. Patient declines transportation. Watchful waiting and use of Tylenol discussed. Red flags, patient education discussed. Patient demonstrates understanding of care and plan, given an opportunity to ask questions. .................... .................... .................... .................... .................... .................... .................... . [facility] Consulted: Trav Ca .................... .................... .................... .................... .................... .................... .................... . Disposition: Fulfilled Trav Ca MD [address] [facility],[address], [place], [address], [facility] 04/06/2025 15:47:28 OBGyn Episode No OBEpisode recorded.
--- OUTSIDE RECORDS SUMMARY | 2025-04-14 13:46 | XMS_ITS | Patient Health Record ---
Author Organization [facility] Address [address] [place] [address] Care Team Providers Care Crystal Lapper Name Role Phone Raven Lyons Primary Care Provider Bibi Flores Unavailable [phone] Allergies Allergen (clinical drug ingredient) Drug/Non Drug [...] hours; Duration: 14 days 09/30/2021 Active Nystatin 515236 UNIT/GM Externally Active Prazosin HCl 2 MG [...] Problem Acquired hammer toe of right foot (1838004007450730) Other hammer toe(s) (acquired), right foot (M20.41) Active confirmed Problem Acquired hallux valgus (68612175) Hallux valgus (acquired), left foot (M20.12) Active confirmed Problem Acquired hammer toe of left foot (1245585251636952) Other hammer toe(s) (acquired), left foot (M20.42) Active confirmed Problem Acquired hammer toe of left foot (4106150811572519) Hammer toe of left foot (M20.42) Active confirmed Problem Localized, primary osteoarthritis of the ankle and/or foot (092239773) Osteoarthritis of right ankle and foot (M19.071) Active confirmed Problem Localized, primary osteoarthritis of the ankle and/or foot (785765658) Osteoarthritis of left ankle and foot (M19.072) Active confirmed Problem Bilateral atherosclerosis of arteries of lower limbs (disorder) (97627820883224906 ) Atherosclerosis of artery of both lower extremities (I70.203) Active confirmed Problem Gouty arthritis of left foot (1444411412323725) Gouty arthritis of left foot (M10.9) Active confirmed Vital Signs Blood pressure diastolic 80 mm Hg 02/14/2025 Height 5ft3in in 02/14/2025 Blood pressure systolic 120 mm Hg 02/14/2025 Weight 243 lbs 02/14/2025 BMI 43.04 kg/m2 02/14/2025 Encounters Encounter Location Date Provider Diagnosis [facility] [address] [address] 07/08/2024 Bibi Siddiqi Tinea pedis of both feet B35.3 ; Tinea unguium B35.1 ; Pain in right toe(s) M79.674 ; Pain in left toe(s) M79.675 and Atherosclerosis of artery of both lower extremities I70.[address] [facility] [address] 12/01/2024 Bibi Perica Pain in right toe(s) M79.674 ; Tinea unguium B35.1 ; Pain in left toe(s) M79.675 and Atherosclerosis of artery of both lower extremities I70.[address] [facility] [address] 02/14/2025 Bibi Perica Pain in right toe(s) M79.674 ; Tinea unguium B35.1 ; Pain in left toe(s) M79.675 and Atherosclerosis of artery of both lower extremities I70.[address] [address] 04/26/2024 Bibi Perica [address] [address] 10/25/2024 Bibi Perica [address] [address] 11/17/2024 Bibi Perica Assessments Encounter Date Diagnosis [...] X ray : Foot, right 3V 09/03/2021 [id number]-YBXPQHM NAIL, 6 OR MORE 09/01/2018, G0679-GVMXO/INJECT, JOINT/BURSA 1 11/04/2020 Next Appt Details Provider Name:Bibi whitaker, 04/26/2025 03:00:00 PM, [address] [facility], [place], [address], Insurance Providers Payer Name Payer Address Payer Phone Subscriber Number Group Number Insured Name Patient Relationship to Insured Coverage Start Date Coverage End Date [facility] [employer] Claims [address] [place] [address] [phone] [id number] Sharon Nugent Self - patient is the insured Medical (General) History Medical History History ICD Code High blood pressure Cholesterol Anxiety Depression Sciatica asthma Obesity Surgical History Surgery Date(Month/Year) basel Cell 2009 Hospitalization History Reason Date(Month/Year) ER- anxiety, dizzy 01/13
--- NOTE | 2025-04-14 14:10 | ED.GENADULT ---
HPI - General Adult General Chief complaint: Extremity Injury, Lower Stated complaint: BILATERAL LE PAIN AND EDEMA S/P FALL T-3 PER EMS Time Seen by Provider: 04/14/25 13:59 Source: patient Mode of arrival: ambulatory Limitations: no limitations History of Present Illness ED Provider: Nito Fleming HPI narrative: 75 yold female with pmh of astma, HTN, hypothryoid, PTSD presents to the ED for re-evaluation of blilateral lower extremities. Patient recently here and evaluated for fall that occurred last week hand bilateral lower extremity swelling with ecchymosis bruising and was discharged. Patient presents to ED today for worsening swelling and bruising or bilateral lower extremity and now has new onset redness of lower extremity. Patient denies any fever or chills. Patient states unable to elevate legs and her reclining chair broke. Patient denies any chest pain or shortness of breath. Related Data Home Medications ?Medication ?Instructions ?Recorded ?Confirmed albuterol sulfate 90 mcg/actuation 2 puff PO Q4H PRN wheezing 06/21/20 04/14/25 aerosol inhaler aspirin 81 mg chewable tablet 1 tab PO DAILY 06/21/20 04/14/25 carvedilol 25 mg tablet 1 tab PO BID 06/21/20 04/14/25 cholecalciferol (vitamin D3) 25 1 tab PO DAILY 06/21/20 04/14/25 mcg (1,000 unit) tablet (Vitamin D3) losartan 100 mg tablet 1 tab PO DAILY 06/21/20 04/14/25 rosuvastatin 5 mg tablet 1 tab PO BEDTIME 06/21/20 04/14/25 allopurinol 100 mg tablet 100 mg PO DAILY 03/26/23 04/14/25 amlodipine 10 mg tablet 10 mg PO DAILY 03/26/23 04/14/25 baclofen 10 mg tablet 10 mg PO BEDTIME PRN Muscle Spasm 03/26/23 04/14/25 clotrimazole 1 % topical cream 1 appl topical DAILY PRN Rash 03/26/23 04/14/25 dapagliflozin propanediol 10 mg 10 mg PO DAILY 03/26/23 04/14/25 tablet (Farxiga) fluvoxamine 100 mg tablet 200 mg PO BEDTIME 03/26/23 04/14/25 ketoconazole 2 % topical cream 1 appl topical DAILY PRN Rash 03/26/23 04/14/25 nystatin 100,000 unit/gram topical 1 appl topical BID PRN Rash 03/26/23 04/14/25 powder simethicone 125 mg chewable tablet 125 mg PO QIDWMHS PRN gas 03/26/23 04/14/25 (Gas Relief (simethicone)) torsemide 20 mg tablet 20 mg PO BID@0900,1600 03/26/23 04/14/25 acetaminophen 650 mg 1,300 mg PO Q8H PRN Pain 04/14/25 04/14/25 tablet,extended release (Tylenol Arthritis Pain) aripiprazole 2 mg tablet 2 mg PO DAILY 04/14/25 04/14/25 budesonide-formoterol HFA 160 2 inh inhalation BID 04/14/25 04/14/25 mcg-4.5 mcg/actuation aerosol inhaler (Symbicort) escitalopram oxalate 10 mg tablet 10 mg PO BEDTIME 04/14/25 04/14/25 famotidine 20 mg tablet 20 mg PO DAILY@1630 04/14/25 04/14/25 gabapentin 100 mg capsule 100 mg PO BID 04/14/25 04/14/25 hydrocortisone 1 % topical cream 1 appl topical BID PRN Rash 04/14/25 04/14/25 ipratropium bromide 21 mcg (0.03 21 mcg intranasal DAILY Runny Nose 04/14/25 04/14/25 %) nasal spray levothyroxine 150 mcg tablet 150 mcg PO DAILY@0600 04/14/25 04/14/25 Previous Rx's ?Medication ?Instructions ?Recorded bupropion HCl 300 mg 24 hr tablet, 1 tab PO DAILY #90 tabs 10/22/20 extended release hydroxyzine HCl 50 mg tablet 50 mg PO DAILY PRN anxiety #90 tabs 12/17/20 Allergies Allergy/AdvReac Type Severity Reaction Status Date / Time lisinopril (LISINOPRIL) Allergy Intermediate RASH Verified 04/14/25 12:36 quetiapine (From SEROQUEL) Allergy Intermediate RASH Verified 04/14/25 12:36 sertraline (From ZOLOFT) Allergy Intermediate RASH, Verified 04/14/25 12:36 DIZZINESS loratadine (From CLARITIN) Allergy Mild UNKNOWN Verified 04/14/25 12:36 methimazole (From TAPAZOLE) Allergy Mild RASH Verified 04/14/25 12:36 potassium chloride Allergy Unknown Unknown Verified 04/14/25 12:36 propranolol (PROPRANOLOL) AdvReac Severe anergy Verified 04/14/25 12:36 Review of Systems Review of Systems: Bilateral lower extremity ecchymosis swelling and now new redness Yes all other systems are reviewed and are negative [facility] Past Medical History Medical History PTSD (post-traumatic stress disorder) Recurrent major depression-severe Family History Family History Other Depression Social History Social History Household Members: None Household Members Other:: Lives with her cat Housing: Other Housing Other:: halfway housing Are you a primary furnace caretaker to a significant other at home: No Do you presently have visiting nurse or other home services: No Alcohol intake: never Patient Tobacco Use Status: Never used Tobacco Advance Directives Date on File: 03/26/23 service: No Physical Exam ED Vital Signs: Vital Signs - 24 hr 04/14/25 12:33 04/14/25 14:37 04/14/25 16:26 Temperature 98.3 F 97.5 F 98.1 F Pulse Rate 74 75 77 Respiratory Rate 14 16 15 Blood Pressure 114/55 L 117/44 L 128/47 L Pulse Oximetry 97 98 97 Oxygen Delivery Method Room Air Room Air Room Air BMI result Body Mass Index 45.3 Const General: cooperative, healthy appearing, comfortable, no acute distress, well developed, alert, awake and Physically active [facility] Head: Yes normal to inspection, Yes No palpable skull fracture present, Yes normocephalic and Yes atraumatic Eyes General: appearance normal, both eyes and all related structures Neck Neck: Yes normal visual inspection, Yes full ROM, Yes no lymphadenopathy, Yes no meningeal signs, Yes trachea midline, Yes supple, No anterior neck swelling and No tender Chest Chest palpation & inspection: normal inspection of the chest and normal palpation of entire chest wall Resp Effort & Inspection: normal respiratory effort and able to speak in complete sentences Auscultation: clear to auscultation bilaterally Cardio Jugular venous distension: no JVD Heart sounds: S1 normal heart sound present and S2 normal heart sound present GI Inspection: Yes normal to inspection Palpation (GI): Soft to palpation, not firm, nontender, no guarding and not rigid General: Yes no CVA tenderness Back/Spine/Pelvis Back: no CVA tenderness and No back tenderness Skin Other: Bilateral lower extremity ecchymosis new erythema Neuro General: tone normal, moves all extremities, Normal light touch and pain sensation, no meningeal signs, no focal motor deficits, CN's II-XI intact bilaterally and normal sensation to monofilament Extrem Other: Skin is soft negative for skin being tight or any palpable hard mass around leg specially ecchymosis areas. Pedal pulses intact. Neuro exam intact. Motor exam limited due to swelling/lymphedema. Areas of erythema or warm. Psych Appearance: grossly normal, well kempt and not disheveled Medications Administered Generic Name Dose Route Start Last Admin Trade Name Freq PRN Reason Stop Dose Admin Acetaminophen 975 mg 04/14/25 18:36 04/15/25 12:35 Acetaminophen 325 Mg Tablet PO 975 mg Q6H PRN Administration Pain, Mild 1-3,fever,headache Allopurinol 100 mg 04/15/25 10:00 04/15/25 11:32 Allopurinol 100 Mg Tablet PO 100 mg DAILY LILLIANA Administration Aripiprazole 2 mg 04/15/25 10:00 04/15/25 11:32 Aripiprazole 2 Mg Tablet PO 2 mg DAILY LILLIANA Administration Atorvastatin Calcium 20 mg 04/15/25 21:00 04/15/25 20:41 Atorvastatin Calcium 20 Mg Tablet PO 20 mg BEDTIME LILLIANA Administration Bupropion HCl 300 mg 04/15/25 10:00 04/15/25 11:32 Bupropion Hcl Xl 300 Mg Tab.Er.24h PO 300 mg DAILY LILLIANA Administration Carvedilol 12.5 mg 04/15/25 10:00 04/15/25 20:41 Carvedilol 12.5 Mg Tablet PO 12.5 mg BID LILLIANA Administration Protocol Ceftriaxone Sodium 1 gm 04/15/25 20:00 04/15/25 20:40 Ceftriaxone Sodium 1 Gm Vial IVPUSH 1 gm Q24H LILLIANA Administration Empagliflozin 10 mg 04/15/25 10:15 04/15/25 11:32 Empagliflozin 10 Mg Tablet PO 10 mg DAILY LILLIANA Administration Escitalopram Oxalate 10 mg 04/15/25 21:00 04/15/25 20:41 Escitalopram Oxalate 10 Mg Tablet PO 10 mg BEDTIME LILLIANA Administration Famotidine 20 mg 04/15/25 16:30 04/15/25 16:48 Famotidine 20 Mg Tablet PO 20 mg DAILY@1630 LILLIANA Administration Fluticasone/Vilanterol 1 puff 04/15/25 10:15 04/15/25 13:06 Fluticasone/Vilanterol 200/25 Blst.W.Dev INHALE Not Given RDAILY [facility] Fluvoxamine Maleate 200 mg 04/15/25 21:00 04/15/25 20:41 Fluvoxamine Maleate 50 Mg Tablet PO 200 mg BEDTIME LILLIANA Administration Gabapentin 100 mg 04/15/25 10:00 04/15/25 20:41 Gabapentin 100 Mg Capsule PO 100 mg BID LILLIANA Administration Heparin Sodium (Porcine) 5,000 unit 04/15/25 09:00 04/15/25 20:40 Heparin Sodium,Porcine 5,000 Unit/Ml Vial SUBCUT 5,000 unit Q12H LILLIANA Administration Vancomycin HCl 1,250 mg/ 250 mls @ 166.667 mls/hr 04/15/25 20:00 04/15/25 20:50 Sodium Chloride IV 166.67 mls/hr Q24H LILLIANA Administration Ipratropium [place] 1 spray 04/15/25 10:00 04/15/25 11:32 Ipratropium Bomoseen José Manuel 0.03 % 30 Ml [place] NOSTRIL-B Not Given DAILY [facility] Levothyroxine Sodium 150 mcg 04/15/25 10:00 04/15/25 11:32 Levothyroxine Sodium 150 Mcg Tablet PO 150 mcg DAILY@0600 [facility] Administration Nystatin 1 appl 04/15/25 09:00 04/15/25 20:52 Nystatin Powder 15 Gm Bottle TOPICAL 1 appl TID [facility] Administration Protocol Sodium Chloride 3 ml 04/15/25 00:00 04/15/25 20:41 0.9 % Sodium Chloride Flush 3 Ml Syringe IVFLUSH 3 ml QSHIFT [facility] Administration Torsemide 20 mg 04/15/25 16:00 04/15/25 16:48 Torsemide 20 Mg Tablet PO 20 mg BID@0900,1600 [facility] Administration Protocol Vitamin D 25 mcg 04/15/25 10:00 04/15/25 11:32 Cholecalciferol (Vitamin D3) 25 Mcg Tablet PO 25 mcg DAILY LILLIANA Administration Discontinued Medications Generic Name Dose Route Start Last Admin Trade Name Annel PRN Reason Stop Dose Admin Ceftriaxone Sodium 1 gm 04/14/25 18:27 04/14/25 20:12 Ceftriaxone Sodium 1 Gm Vial IVPUSH 04/14/25 18:28 1 gm ONCE ONE Administration Vancomycin HCl 2,000 mg in 500 mls @ 250 mls/hr 04/14/25 18:22 04/14/25 23:00 Vancomycin/Ns IV 04/14/25 20:21 Infused ONCE ONE Infusion Morphine Sulfate 2 mg 04/14/25 15:19 04/14/25 15:34 Morphine Sulfate 2 Mg/Ml Cartridge IVPUSH 04/14/25 15:20 2 mg ONCE ONE Administration Protocol Morphine Sulfate 4 mg 04/14/25 17:57 04/14/25 18:06 Morphine Sulfate 4 Mg/Ml Cartridge IM 04/14/25 17:58 4 mg ONCE ONE Administration Protocol Medical Decision Making Medical Decision Making MDM Narrative: 75-year-old female presents to the ED for worsening swelling in bilateral lower extremities ecchymosis and now new erythema. Patient denies any chest pain or shortness of breath. Labs ordered. Presently not suspecting compartment syndrome. Negative for skin tightness. Pedal pulses intact. Neuro sensation intact. Trauma occurred a week ago. Bilateral lower extremity with erythema is warm. Labs ordered. 6: 42pm: X-rays negative for fracture osteomyelitis. Official ultrasound reading pending. Case presented to Dr. Boyd Edwards for admission for possible superimposed cellulitis on top of the hematomas. She agrees patient should be admitted for antibiotic trial. Presently no indication for CT scan of bilateral lower extremity to rule out extravasation. Differential Diagnosis Differential Diagnoses: The differential diagnosis associated with the presentation includes (Hematoma, DVT, osteomyelitis, cellulitis) Admission/Observation Consideration of admission/observation: Escalation of care including admission/observation considered Lab Data [facility] Lab Attestation statement: I reviewed the patient's lab results. 04/15/25 06:34 04/15/25 06:34 Labs: Lab Results 04/14/25 Range/Units 14:56 WBC 6.8 (4.8-10.8) X10*3/uL RBC 3.99 L D (4.20-5.50) X10*6/uL Hgb 11.8 L D (12.0-16.0) g/dl Hct 36.5 L D (37.0-47.0) % MCV 91.5 (80.0-98.0) fL MCH 29.6 (27.0-33.0) pg MCHC 32.3 (31.0-35.0) g/dl RDW 13.4 (11.0-16.0) % Plt Count 227 (160-400) X10*3/uL MPV 10.2 (9.4-12.3) fL Immature Gran % (Auto) 0.4 (0.0-0.4) % Neut % (Auto) 64.2 (45-73) % Lymph % (Auto) 19.3 L (20-40) % [place] % (Auto) 11.0 (2-11) % Eos % (Auto) 4.7 H (0-4) % Baso % (Auto) 0.4 (0-2) % Lymph # (Auto) 1.3 (1.2-4.9) X10*3/uL [place] # (Auto) 0.8 (0.1-1.2) X10*3/uL Eos # (Auto) 0.3 (0.0-0.4) X10*3/uL Baso # (Auto) 0.0 (0.0-0.2) X10*3/uL Abs Immat Gran (auto) 0.03 (0.00-0.03) X10*3/uL Absolute Neuts (auto) 4.4 (2.0-8.3) x10*3/uL Absolute Nucleated RBC 0.000 (0.0-0.012) X10*3/uL Nucleated RBC % (auto) 0.0 (0.0-0.2) /100WBC ESR 36 H (0-20) MM/HR PT 12.2 (10.9-12.4) SEC INR 1.1 (0.9-1.1) APTT 34.1 (26.0-36.8) SEC Sodium 142 (135-145) mmol/L Potassium 4.5 (3.3-5.1) mmol/L Chloride 107 (96-108) mmol/L Carbon Dioxide 26 (22-29) mmol/L Anion Gap 14 (12-20) BUN 27 H (9-16) mg/dL Creatinine 0.90 (0.5-1.4) mg/dL Estim Creat Clear Calc 67.4 Estimated GFR > 60 Random Glucose 99 (60-115) mg/dL Lactic Acid 0.7 (0.5-2.0) mmol/L Calcium 10.5 H (8.4-10.2) mg/dL Total Bilirubin 1.1 H (0.0-1.0) mg/dL AST 29 (5-31) U/L ALT 13 (0-31) U/L Alkaline Phosphatase 50 (39-117) U/L Total Creatine Kinase 119 (26-140) U/L C-Reactive Protein 5.69 H (< or = 0.50) mg/dL Total Protein 6.9 (6.5-8.0) g/dL Albumin 4.2 (3.5-5.0) g/dL Independent Interpretation I performed an independent interpretation of an: Plain X-Ray and Ultrasound Radiology Impression Discussion of test interpretation with radiology: I have reviewed the radiologist's reading. Critical Care Time Critical Care Time Critical Care Time: Yes Total Critical Care Time: 60 Attestation: labs, imaging, and IV antbiotics ordered. Discharge Plan Discharge Clinical Impression: Cellulitis, Contusion Patient Disposition: Admitted As Inpatient Interventions: Admission Worksheet (ED) Last Done: 04/14/25 20:56 Discharge Date/Time: 04/14/25 23:37
[2025-04-14 14:37] VITALS: BP 117/44; PULSE 75; RESP 16; TEMP 36.4; O2SAT 98
[2025-04-14 15:01] LABS: MANUAL DIFF FLAG NO
[2025-04-14 15:04] LABS: Hematocrit 36.5 % (37.0-47.0); Hemoglobin 11.8 g/dl (12.0-16.0); Imm Gran Abs Auto 0.03 X10*3/uL (0.00-0.03); Imm Gran Pct Auto 0.4 % (0.0-0.4); Lymphocytes Absolute Auto 1.3 X10*3/uL (1.2-4.9); Mean Corpuscular HGB Conc 32.3 g/dl (31.0-35.0); Mean Corpuscular Hemoglobin 29.6 pg (27.0-33.0); Mean Corpuscular Volume 91.5 fL (80.0-98.0); NRBC Abs Auto 0.000 X10*3/uL (0.0-0.012); NRBC Pct Auto 0.0 /100WBC (0.0-0.2); Platelet Count 227 X10*3/uL (160-400); Red Blood Count 3.99 X10*6/uL (4.20-5.50); White Blood Count 6.8 X10*3/uL (4.8-10.8)
[2025-04-14 15:17] LABS: INTERNATIONAL NORM RATIO 1.1 (0.9-1.1); Prothrombin Time 12.2 SEC (10.9-12.4)
[2025-04-14 15:18] LABS: Alanine Aminotransferase 13 U/L (0-31); Albumin Level 4.2 g/dL (3.5-5.0); Alkaline Phosphatase 50 U/L (39-117); Anion Gap 14 (12-20); Aspartate Amino Transferase 29 U/L (5-31); Blood Urea Nitrogen 27 mg/dL (9-16); Calcium 10.5 mg/dL (8.4-10.2); Carbon Dioxide 26 mmol/L (22-29); Chloride 107 mmol/L (96-108); Creatinine Clr Calc Pharmacy 67.4; Estimated Glomerular Filt Rate > 60; Potassium 4.5 mmol/L (3.3-5.1); Sodium 142 mmol/L (135-145); Total Protein 6.9 g/dL (6.5-8.0)
[2025-04-14 15:19] LABS: Partial Thromboplastin Time 34.1 SEC (26.0-36.8)
--- NOTE | 2025-04-14 15:28 | MHC.EDTECH ---
patient repositioned and checked for incontinence. Purewick placed
--- NOTE | 2025-04-14 16:18 | PC.NURSE ---
Pt medicated per orders for pain; awaiting U/S per orders; vss
[2025-04-14 16:26] VITALS: BP 128/47; PULSE 77; RESP 15; TEMP 36.7; O2SAT 97
[2025-04-14 18:28] VITALS: BP 124/46; PULSE 74; RESP 15; TEMP 36.7; O2SAT 95
--- NOTE | 2025-04-14 19:09 | PM.IMHP ---
History of Present Illness Date of Service: 04/14/25 Attending physician on admission: Siomara Edwards Chief Complaint: Worsening legs swelling Sharon Nugent is a 75 years old woman with past medical history significant for morbid obesity, chronic lymphedema of the lower extremities, hypothyroidism, PTSD/depression and essential hypertension presents to the emergency department for the 2nd time in the last 2 weeks due to worsening swelling and pain to the lower extremities, more prominent in the knees. Recently, she sustained a fall (April 05) landing on both knees resulting in bruising around both knees. Subsequently, the bruising propagated to the ankles. She is not able to walk well or bear weight; and is unable to flex her knees appropriately. She does take torsemide for lymphedema. She denied any headache, palpitations, shortness on breath, cough, fever, chills, abdominal pain, nausea, vomiting or diarrhea. She denied alcohol abuse or illicit drug abuse. She takes aspirin but no anticoagulants. In the ED, she was found to have stable vital signs. She has no leukocytosis. C-reactive protein is elevated, 5.69. Her hemoglobin significantly dropped from 15.4 to 11.8 over the last 3 months. There are no significant electrolyte imbalances. BUN is 27 and creatinine 0.90. LFTs are essentially normal. Calcium is 10.5. INR is 1.1. Three days ago she underwent bilateral lower extremity venous ultrasound that showed no DVT. She also head CT scan that showed no acute intracranial abnormalities. Left knee x-ray showed moderate to severe 3 compartment osteoarthrosis involving mostly the medial compartment, no fractures or dislocation. Right knee x-ray showed tricompartmental arthrosis, [id number] involving mostly to the medial compartment, no fractures or dislocations. Bilateral Tib fib x-rays done today showed no acute bony abnormality neither tibia fibula; it is showed diffuse subcutaneous soft tissue edema bilaterally. ED tx: Morphine 6 mg IV/IM total, ceftriaxone 1 g IV, vancomycin 2 g IV Review of Systems Review of Systems: All 12 systems were reviewed and normal except as noted in HPI. FORMERLY [facility], [facility]–1983 Medical History PTSD (post-traumatic stress disorder) Recurrent major depression-severe Family History Other Depression Social History Household Members Other:: Lives with her cat Housing: Apartment Are you a primary live in caregiver to a significant other at home: No Do you presently have visiting nurse or other home services: Yes Alcohol intake: never Smoked in Last 30 Days: No Use of substances other than those prescribed or required for medical reasons: No Advance Directives: Yes Advance Directives on File: Yes Advance Directives Date on File: 03/26/23 Do you have a plan to hurt others: No Plan Meds Allergies Allergy/AdvReac Type Severity Reaction Status Date / Time lisinopril (LISINOPRIL) Allergy Intermediate RASH Verified 04/14/25 12:36 quetiapine (From SEROQUEL) Allergy Intermediate RASH Verified 04/14/25 12:36 sertraline (From ZOLOFT) Allergy Intermediate RASH, Verified 04/14/25 12:36 DIZZINESS loratadine (From CLARITIN) Allergy Mild UNKNOWN Verified 04/14/25 12:36 methimazole (From TAPAZOLE) Allergy Mild RASH Verified 04/14/25 12:36 potassium chloride Allergy Unknown Unknown Verified 04/14/25 12:36 propranolol (PROPRANOLOL) AdvReac Severe anergy Verified 04/14/25 12:36 Active Medications: Current Medications Acetaminophen (Acetaminophen 325 Mg Tablet) 975 mg PO Q6H PRN PRN Reason: Pain, Mild 1-3,fever,headache Calcium Carbonate (Calcium Carbonate 750 Mg Tab.Chew) 750 mg PO Q4H PRN PRN Reason: Heartburn Ceftriaxone Sodium (Ceftriaxone Sodium 1 Gm Vial) 1 gm IVPUSH DAILY [facility] Heparin Sodium (Porcine) (Heparin Sodium,Porcine 5,000 Unit/Ml Vial) 5,000 unit SUBCUT Q12H [facility] Vancomycin HCl (Vancomycin/Ns) 2,000 mg in 500 mls @ 250 mls/hr IV ONCE ONE Stop: 04/14/25 20:21 Magnesium Hydroxide (Milk Of Magnesia 30 Ml Oral.Susp) 30 ml PO DAILY PRN PRN Reason: Constipation Melatonin (Melatonin 3 Mg Tablet) 6 mg PO BEDTIME PRN PRN Reason: Insomnia Pharmacy Consult (Consult Rx Vancomycin Dosing) 1 each MISCELLANE DAILY PRN PRN Reason: Consult order Sodium Chloride (0.9 % Sodium Chloride Flush 3 Ml Syringe) 3 ml IVFLUSH QSHIFT [facility] Home Medications ?Medication ?Instructions ?Recorded ?Confirmed ?Last Taken ?Type albuterol sulfate 90 mcg/actuation 2 puff PO Q4H PRN wheezing 06/21/20 03/26/23 Unknown History aerosol inhaler aspirin 81 mg chewable tablet 1 tab PO DAILY 06/21/20 03/26/23 03/25/23 09:00 History carvedilol 25 mg tablet 1 tab PO BID 06/21/20 03/26/23 03/25/23 09:00 History cholecalciferol (vitamin D3) 25 1 tab PO DAILY 06/21/20 03/26/23 03/25/23 09:00 History mcg (1,000 unit) tablet (Vitamin D3) losartan 100 mg tablet 1 tab PO DAILY 06/21/20 03/26/23 03/25/23 09:00 History rosuvastatin 5 mg tablet 1 tab PO BEDTIME 06/21/20 03/26/23 03/25/23 09:00 History allopurinol 100 mg tablet 100 mg PO DAILY 03/26/23 03/26/23 03/25/23 09:00 History amlodipine 10 mg tablet 10 mg PO DAILY 03/26/23 03/26/23 03/25/23 09:00 History baclofen 10 mg tablet 10 mg PO TID PRN Muscle Spasm 03/26/23 03/26/23 Unknown History clotrimazole 1 % topical cream 1 appl topical DAILY PRN Rash 03/26/23 03/26/23 Unknown History dapagliflozin propanediol 10 mg 10 mg PO DAILY 03/26/23 03/26/23 03/25/23 09:00 History tablet (Farxiga) estradiol 0.01% (0.1 mg/gram) 1 appl vaginal Q OTHER DAY 03/26/23 03/26/23 03/24/23 History vaginal cream fluticasone fur. 200 mcg-umeclid 1 ea inhalation DAILY 03/26/23 03/26/23 03/25/23 09:00 History 62.5 mcg-vilant 25 mcg inhalat.powder (Trelegy Ellipta) fluvoxamine 100 mg tablet 300 mg PO BEDTIME 03/26/23 03/26/23 03/24/23 History ketoconazole 2 % topical cream 1 appl topical DAILY 03/26/23 03/26/2303/25/23 09:00 History nystatin 100,000 unit/gram topical 1 appl topical BID PRN Rash 03/26/23 03/26/23 Unknown History powder simethicone 125 mg chewable tablet 125 mg PO QIDWMHS PRN gas 03/26/23 03/26/23 Unknown History (Gas Relief (simethicone)) torsemide 20 mg tablet 20 mg PO BID@0900,1600 03/26/23 03/26/23 03/25/23 09:00 History aripiprazole 2 mg tablet 2 mg PO DAILY 04/14/25 Unknown History budesonide-formoterol HFA 160 inhalation 04/14/25 Unknown History mcg-4.5 mcg/actuation aerosol inhaler escitalopram oxalate 10 mg tablet 10 mg PO DAILY 04/14/25 Unknown History famotidine 20 mg tablet 20 mg PO DAILY@1630 04/14/25 Unknown History gabapentin 100 mg capsule 100 mg PO BID 04/14/25 Unknown History ipratropium bromide 21 mcg (0.03 21 mcg intranasal DAILY Runny Nose 04/14/25 Unknown History %) nasal spray levothyroxine 150 mcg tablet 150 mcg PO DAILY@0600 04/14/25 Unknown History Physical Exam Vital Signs and Narrative: Vital Signs: Last Vital Signs Temp 98.0 F 04/14/25 18:28 Pulse 74 04/14/25 18:28 Resp 15 04/14/25 18:28 BP 124/46 L 04/14/25 18:28 Pulse Ox 95 04/14/25 18:28 O2 Del Method Room Air 04/14/25 18:28 BMI result Body Mass Index 45.3 Constitutional - Awake and Alert, No apparent distress. Obese. Afebrile. HEENT - PERRLA, EOMI Heart - RRR, No murmurs. Lungs - Normal lung expansion, Normal respiratory effort, No respiratory distress, CTA bilaterally Gastrointestinal - NT / ND; +BS; No rebound or guarding Extremities - there is bilateral nonpitting edema to lower extremity with extensive bruising extending from the knee to the ankle area sparing in the feet except that he will. Knees: Limited ROM due to pain and effusion. Left leg: There is an area of erythema. Both legs are very tender to palpation. Distal pulses 2+ bilateral. See pictures below. Musculoskeletal - Normal inspection, normal ROM Skin - Warm/Dry. No pallor. Neurological - Alert & oriented x3. No facial droop. Normal speech. Psychological - Appropriate affect Results Labs 04/14/25 14:56 04/14/25 14:56 Labs: Laboratory Results - last 24 hr 04/14/25 14:56 MCV 91.5 MCH 29.6 MCHC 32.3 RDW 13.4 Plt Count 227 MPV 10.2 Immature Gran % (Auto) 0.4 Neut % (Auto) 64.2 Lymph % (Auto) 19.3 L [place] % (Auto) 11.0 Eos % (Auto) 4.7 H Baso % (Auto) 0.4 Lymph # (Auto) 1.3 [place] # (Auto) 0.8 Eos # (Auto) 0.3 Baso # (Auto) 0.0 Abs Immat Gran (auto) 0.03 Absolute Neuts (auto) 4.4 Absolute Nucleated RBC 0.000 Nucleated RBC % (auto) 0.0 ESR 36 H PT 12.2 INR 1.1 APTT 34.1 Anion Gap 14 Estim Creat Clear Calc 67.4 Estimated GFR > 60 Random Glucose 99 Lactic Acid 0.7 Calcium 10.5 H Total Bilirubin 1.1 H AST 29 ALT 13 Alkaline Phosphatase 50 Total Creatine Kinase 119 C-Reactive Protein 5.69 H Total Protein 6.9 Albumin 4.2 Imaging Radiologist's Impressions: Impressions Knee X-Ray 04/14/25 14:56 IMPRESSION: 1. No acute bony abnormalities of either knee. 2. Bilateral severe tricompartmental osteoarthritis with tiny suprapatellar joint effusions. 3. There is diffuse subcutaneous soft tissue edema bilaterally. Electronically signed by: Yusuf Pan MD 04/14/2025 04:12 PM EDT Tibia/Fibula X-Ray 04/14/25 14:59 IMPRESSION: 1. No acute bony abnormalities in either tibia or fibula. 2. Diffuse subcutaneous soft tissue edema bilaterally. Electronically signed by: Yusuf Pan MD 04/14/2025 04:14 PM EDT Foot X-Ray 04/14/25 16:20 IMPRESSION: No acute bony abnormalities. Diffuse soft tissue edema. Electronically signed by: Yusuf Pan MD 04/14/2025 04:48 PM EDT RP Foot X-Ray 04/14/25 16:20 IMPRESSION: No acute bony abnormalities. Diffuse soft tissue edema. Electronically signed by: Yusuf Pan MD 04/14/2025 04:51 PM EDT RP Assessment and Plan (1) Bilateral lower extremity edema: Status: Acute (2) Traumatic ecchymosis of multiple sites of lower extremity: Qualifiers: Encounter type: initial encounter Laterality: unspecified laterality Qualified Code(s): S80.10XA - Contusion of unspecified lower leg, initial encounter Status: Acute (3) Anemia: Qualifiers: Anemia type: unspecified type Qualified Code(s): D64.9 - Anemia, unspecified Status: Acute Plan Sharon Nugent is a 75 y/o woman presents with: Bilateral lower extremity worsening edema and extensive bruising in the setting of chronic lymphedema after trauma (April 05) to both knees; possible superimposed infection/cellulitis. Fall precautions. Continue empiric IV antibiotic therapy with vancomycin and Rocephin. Compression therapy. Elevate extremities. Bilat LE venous ultrasound has been repeated - results pending (prior was negative for DVT). Continue torsemide. Physiotherapy. Normocytic anemia, likely secondary to above: Traumatic ecchymosis after bilateral knee trauma. Continue to monitor H&H. Hypothyroidism. Continue levothyroxine. Essential hypertension. Continue amlodipine, carvedilol and losartan. Mood disorder. Continue bupropion, aripiprazole Gout. Continue allopurinol. Morbid obesity. BMI 45.3 kg/m2. Weight loss. DVT prophylaxis: Heparin Code status: Full Patient will need hospitalization for at least 2 midnights for worsening bilateral lower extremity worsening edema and possible cellulitis treatment with IV antibiotics, compression therapy and diuresis. Quality Stroke Does the patient have a stroke diagnosis?: No VTE Prior VTE?: No VTE Risk Level:: Medical - moderate - high VTE Device Contraindication: Treatment Not Indicated VTE Drug Contraindication: N/A - Med Ordered
[2025-04-14 19:53] VITALS: BP 114/45; PULSE 72; RESP 17; TEMP 36.7; O2SAT 95
[2025-04-14] MEDS: vancomycin/NS 2,000 MG/500 ML PLAST..BAG 250 MG IV (20:12)
--- NOTE | 2025-04-14 22:10 | PHA.MEDREC ---
Addendum entered by Erasto Acevedo [facility] 04/14/25 22:28: MED REC CHECKED BY [facility] Original Note: Pharmacy Consult ? Medication Reconciliation Pharmacy has completed the medication reconciliation. Spoke with pt and she confirmed her medications with a written list pt made 02/12/2025. Pt had written on the list Aripirazole 5mg tabs and looking in recent claims it looks like that changed in the last month from 5mg QD to 2 mg QD (5mg LF 03/20 for 30d and 2mg LF 04/06); speaking with pt she confirmed it changed in the last month but thinks it increased from 2mg to 5mg. Per pt, she still uses Baclofen 10mg tabs once at bedtime as needed for muscle spasms, she takes Symbicort 2 puffs BID, Fluvoxamine 100mg tab 2 tabs at bedtime and her Ketoconazole, Clotrimazole, Hydrocortisone and Nystatin creams as needed for rashes she develops.
--- NOTE | 2025-04-14 22:30 | PC.NURSE ---
this rn made aware by education diagnostician pt experiencing pain in bladder and need to urinate prior to being brought to inpatient bed assignment. bladder scan performed found to be retaining 1260ml in bladder dr augustine made aware order for straight cath placed by . straight cath placed 900ml output
[2025-04-14] MEDS: 0.9 % Sodium Chloride Flush 3 ML SYRINGE IVFLUSH (23:26)
[2025-04-14 23:30] VITALS: BMI 44.1
[2025-04-14 23:45] VITALS: BP 136/60; PULSE 79; RESP 18; TEMP 36.7; O2SAT 95
--- NOTE | 2025-04-15 01:12 | HO.SKINPHOTO ---
Location: buttocks Category: MASD Stage: Length: Width: Depth: cm Location: Category: Stage: Length: Width: Depth: cm Location: Category: Stage: Length: Width: Depth: cm Location: Category: Stage: Length: Width: Depth: cm Location: Category: Stage: Length: Width: Depth: cm Location: Category: Stage: Length: Width: Depth: cm
[2025-04-15 03:16] VITALS: BP 109/53; PULSE 78; RESP 18; TEMP 36.6; O2SAT 96
--- NOTE | 2025-04-15 05:27 | MHC.PIE ---
p; pt c/o unable to urinate and pain/pressure to groin. bladder scan shows over 600. i; dr augustine notified. new order costa now e; costa placed, draining 700ml. will cont to monitor
[2025-04-15 07:06] LABS: MANUAL DIFF FLAG NO
[2025-04-15 07:09] LABS: Hematocrit 34.0 % (37.0-47.0); Hemoglobin 11.0 g/dl (12.0-16.0); Imm Gran Abs Auto 0.03 X10*3/uL (0.00-0.03); Imm Gran Pct Auto 0.5 % (0.0-0.4); Lymphocytes Absolute Auto 1.2 X10*3/uL (1.2-4.9); Mean Corpuscular HGB Conc 32.4 g/dl (31.0-35.0); Mean Corpuscular Hemoglobin 29.8 pg (27.0-33.0); Mean Corpuscular Volume 92.1 fL (80.0-98.0); NRBC Abs Auto 0.000 X10*3/uL (0.0-0.012); NRBC Pct Auto 0.0 /100WBC (0.0-0.2); Platelet Count 211 X10*3/uL (160-400); Red Blood Count 3.69 X10*6/uL (4.20-5.50); White Blood Count 6.1 X10*3/uL (4.8-10.8)
[2025-04-15 07:30] LABS: Anion Gap 13 (12-20); Blood Urea Nitrogen 21 mg/dL (9-16); Calcium 9.9 mg/dL (8.4-10.2); Carbon Dioxide 25 mmol/L (22-29); Chloride 109 mmol/L (96-108); Creatinine Clr Calc Pharmacy 79.6; Estimated Glomerular Filt Rate > 60; Magnesium 2.1 mg/dL (1.6-2.6); Potassium 3.7 mmol/L (3.3-5.1); Sodium 143 mmol/L (135-145)
[2025-04-15 07:38] VITALS: BP 119/59; PULSE 86; RESP 18; TEMP 36.2; O2SAT 98
[2025-04-15] MEDS: 0.9 % Sodium Chloride Flush 3 ML SYRINGE IVFLUSH ×3 (08:54→20:41)
--- NOTE | 2025-04-15 09:45 | P.PNIM_ITS ---
Subjective Subjective Date of Service: 04/15/25 Interval History: Seen and examied, has no new complaint generally weak and with swelling all over in the legs making ambulation difficult Physical Exam 2 Vital Signs: Vital Signs: Last Vital Signs Temp 97.1 F 04/15/25 07:38 Pulse 86 04/15/25 07:38 Resp 18 04/15/25 07:38 BP 119/59 L 04/15/25 07:38 Pulse Ox 98 04/15/25 07:38 O2 Del Method Nasal Cannula 04/15/25 07:38 O2 Flow Rate 1 04/15/25 07:38 BMI result Body Mass Index 44.1 Appearance: Alert.?Oriented to person, place and time. No acute distress.?Normal affect. CVS: [id number] Respiratory: No respiratory distress.? Lung sounds clear to auscultation bilaterally?? Abdomen: Soft and non-tender. Normoactive bowel sounds. No pulsatile mass.?? Skin: see pics Extremities: swelling and bruses as in the pictures Neuro: Moves all extremities spontaneously. Sensation intact bilaterally. CN II- XII intact. No focal neuro deficits. Extrem: Other: Skin is soft negative for skin being tight or any palpable hard mass around leg specially ecchymosis areas. Pedal pulses intact. Neuro exam intact. Motor exam limited due to swelling/lymphedema. Areas of erythema or warm. Objective Data Active Medications Acetaminophen (Acetaminophen 325 Mg Tablet) 975 mg PO Q6H PRN PRN Reason: Pain, Mild 1-3,fever,headache Calcium Carbonate (Calcium Carbonate 750 Mg Tab.Chew) 750 mg PO Q4H PRN PRN Reason: Heartburn Ceftriaxone Sodium (Ceftriaxone Sodium 1 Gm Vial) 1 gm IVPUSH Q24H [facility] Heparin Sodium (Porcine) (Heparin Sodium,Porcine 5,000 Unit/Ml Vial) 5,000 unit SUBCUT Q12H [facility] Last Admin: 04/15/25 08:53 Dose: 5,000 unit Documented By: RAY Vancomycin HCl 1,250 mg/ (Sodium Chloride) 250 mls @ 166.667 mls/hr IV Q24H [facility] Magnesium Hydroxide (Milk Of Magnesia 30 Ml Oral.Susp) 30 ml PO DAILY PRN PRN Reason: Constipation Melatonin (Melatonin 3 Mg Tablet) 6 mg PO BEDTIME PRN PRN Reason: Insomnia Nystatin (Nystatin Powder 15 Gm Bottle) 1 appl TOPICAL TID [facility]; Protocol Last Admin: 04/15/25 08:53 Dose: 1 appl Documented By: RAY Oxycodone HCl (Oxycodone Hcl Immed Release 5 Mg Tablet) 5 mg PO Q6H PRN PRN Reason: Leg pain Pharmacy Consult (Consult Rx Vancomycin Dosing) 1 each MISCELLANE DAILY PRN PRN Reason: Consult order Sodium Chloride (0.9 % Sodium Chloride Flush 3 Ml Syringe) [facility] Last Admin: 04/15/25 08:54 Dose: 3 ml Documented By: RAY Labs 04/15/25 06:34 04/15/25 06:34 Labs: Laboratory Results - last 24 hr 04/14/25 04/15/25 14:56 06:34 MCV 91.5 92.1 MCH 29.6 29.8 MCHC 32.3 32.4 RDW 13.4 13.4 Plt Count 227 211 MPV 10.2 10.4 Immature Gran % (Auto) 0.4 0.5 H Neut % (Auto) 64.2 62.3 Lymph % (Auto) 19.3 L 19.9 L [place] % (Auto) 11.0 11.3 H Eos % (Auto) 4.7 H 5.7 H Baso % (Auto) 0.4 0.3 Lymph # (Auto) 1.3 1.2 [place] # (Auto) 0.8 0.7 Eos # (Auto) 0.3 0.4 Baso # (Auto) 0.0 0.0 Abs Immat Gran (auto) 0.03 0.03 Absolute Neuts (auto) 4.4 3.8 Absolute Nucleated RBC 0.000 0.000 Nucleated RBC % (auto) 0.0 0.0 ESR 36 H PT 12.2 INR 1.1 APTT 34.1 Anion Gap 14 13 Estim Creat Clear Calc 67.4 79.6 Estimated GFR > 60 > 60 Random Glucose 99 102 Lactic Acid 0.7 Calcium 10.5 H 9.9 Magnesium 2.1 Total Bilirubin 1.1 H AST 29 ALT 13 Alkaline Phosphatase 50 Total Creatine Kinase 119 C-Reactive Protein 5.69 H Total Protein 6.9 Albumin 4.2 Assessment and Plan (1) Knee pain, right: Status: Acute (2) Traumatic ecchymosis of multiple sites of lower extremity: Status: Acute (3) Cellulitis: Status: Acute Plan Sharon Nugent is a 75 y/o woman presents with: Bilateral lower extremity worsening edema and extensive bruising in the setting of chronic lymphedema after traumatic (April 05) to both knees from fall; possible superimposed infection/cellulitis. Fall precautions. Continue empiric IV antibiotic therapy with vancomycin and Rocephin, change to Doxy if cultures negative. Compression therapy. Elevate extremities. Bilat LE venous ultrasound has been repeated - results pending (prior was negative for DVT on 04/11 ). Continue torsemide. Physiotherapy. Normocytic anemia, likely secondary to above: Traumatic ecchymosis after bilateral knee trauma. Continue to monitor H&H. Hypothyroidism. Continue levothyroxine. Essential hypertension. BP on lower side hold Norvasc and Lisinopril. Coreg at half the dose Mood disorder. Continue bupropion, aripiprazole Gout. Continue allopurinol. Morbid obesity. BMI 45.3 kg/m2. Weight loss. DVT prophylaxis: Heparin Code status: Full PT eval Quality Stroke Does the patient have a stroke diagnosis?: No VTE Prior VTE?: No VTE Risk Level:: Medical - moderate - high VTE Device Contraindication: Treatment Not Indicated VTE Drug Contraindication: N/A - Med Ordered
--- NOTE | 2025-04-15 10:03 | MHC.CM.PN ---
PT REPORTS SHE LIVES ALONE AND HAS A [employer] FROM [facility] 5 DAYS/WK FOR 3HRS/DAY SHE USES A ROLLATOR FOR DME HCP ON FILE AND VERIFIED PCP: TIMOTHY [facility] IMM DELIVERED DCP: HOME RESUME [employer] FAMILY TO TRANSPORT
[2025-04-15] MEDS: buPROPion HCl XL 300 MG TAB.ER.24H PO (11:32)
--- NOTE | 2025-04-15 14:00 | PC.NURSE ---
at ~110 pt called this RN into room requesting costa catheter to be removed. Explained that she had been retaining urine and urology consult placed. Pt continues to state she wants it removed, Spoke with Dr Corbett and costa removed at 1130. DTV at 1730
[2025-04-15 15:09] VITALS: BP 119/58; PULSE 75; RESP 18; TEMP 36.6; O2SAT 97
[2025-04-15 19:44] VITALS: BP 121/58; PULSE 82; RESP 18; TEMP 36.8; O2SAT 95
[2025-04-16 04:00] VITALS: BP 109/53; PULSE 74; RESP 18; TEMP 36.2; O2SAT 93
[2025-04-16 06:39] LABS: Creatinine Clr Calc Pharmacy 73.7; Estimated Glomerular Filt Rate > 60
[2025-04-16 07:46] VITALS: BP 101/54; PULSE 78; RESP 18; TEMP 36.2; O2SAT 93
[2025-04-16] MEDS: Fluticasone/Vilanterol 200/25 BLST.W.DEV 1 PUFF INHALE (08:05)
[2025-04-16 08:08] VITALS: PULSE 78; RESP 16
[2025-04-16] MEDS: buPROPion HCl XL 300 MG TAB.ER.24H PO (08:18)
[2025-04-16] MEDS: 0.9 % Sodium Chloride Flush 3 ML SYRINGE IVFLUSH ×3 (08:18→20:57)
[2025-04-16 08:23] LABS: MANUAL DIFF FLAG NO
[2025-04-16 08:26] LABS: Hematocrit 33.3 % (37.0-47.0); Hemoglobin 10.5 g/dl (12.0-16.0); Imm Gran Abs Auto 0.02 X10*3/uL (0.00-0.03); Imm Gran Pct Auto 0.3 % (0.0-0.4); Lymphocytes Absolute Auto 1.4 X10*3/uL (1.2-4.9); Mean Corpuscular HGB Conc 31.5 g/dl (31.0-35.0); Mean Corpuscular Hemoglobin 29.1 pg (27.0-33.0); Mean Corpuscular Volume 92.2 fL (80.0-98.0); NRBC Abs Auto 0.000 X10*3/uL (0.0-0.012); NRBC Pct Auto 0.0 /100WBC (0.0-0.2); Platelet Count 216 X10*3/uL (160-400); Red Blood Count 3.61 X10*6/uL (4.20-5.50); White Blood Count 5.9 X10*3/uL (4.8-10.8)
[2025-04-16 08:33] LABS: Anion Gap 13 (12-20); Carbon Dioxide 24 mmol/L (22-29); Chloride 109 mmol/L (96-108); Potassium 3.7 mmol/L (3.3-5.1); Sodium 142 mmol/L (135-145)
--- NOTE | 2025-04-16 09:05 | HO.PM.IMPN ---
Subjective Subjective Date of Service: 04/16/25 Interval History: Seen and examied, has no new complaint generally weak and with swelling all over in the legs making ambulation difficult bruses seem better Physical Exam Vital Signs: Vital Signs: Last Vital Signs Temp 97.2 F 04/16/25 07:46 Pulse 78 04/16/25 08:08 Resp 16 04/16/25 08:08 BP 101/54 L 04/16/25 07:46 Pulse Ox 93 04/16/25 07:46 O2 Del Method Room Air 04/16/25 07:46 O2 Flow Rate 1 04/15/25 07:38 BMI result Body Mass Index 44.1 Appearance: Alert.?Oriented to person, place and time. No acute distress.?Normal affect. CVS: [id number] Respiratory: No respiratory distress.? Lung sounds clear to auscultation bilaterally?? Abdomen: Soft and non-tender. Normoactive bowel sounds. No pulsatile mass.?? Skin: see pics, bruses seem better, some erythema to left leg Extremities: swelling and bruses as in the pictures Neuro: Moves all extremities spontaneously. Sensation intact bilaterally. CN II-XII intact. No focal neuro deficits. Extrem: Other: Skin is soft negative for skin being tight or any palpable hard mass around leg specially ecchymosis areas. Pedal pulses intact. Neuro exam intact. Motor exam limited due to swelling/lymphedema. Areas of erythema or warm. Objective Data Active Medications Acetaminophen (Acetaminophen 325 Mg Tablet) 975 mg PO Q6H PRN PRN Reason: Pain, Mild 1-3,fever,headache Last Admin: 04/15/25 12:35 Dose: 975 mg Documented By: RAY Albuterol Sulfate (Albuterol Sulfate 90 Mcg 8 Gm Inhaler) 2 puff INHALE Q4H PRN PRN Reason: Wheezing Allopurinol (Allopurinol 100 Mg Tablet) 100 mg PO DAILY [facility] Last Admin: 04/16/25 08:18 Dose: 100 mg Documented By: RAY Aripiprazole (Aripiprazole 2 Mg Tablet) 2 mg PO DAILY [facility] Last Admin: 04/16/25 08:18 Dose: 2 mg Documented By: RAY Aspirin (Aspirin 81 Mg Tab.Chew) 81 mg PO DAILY [facility] Last Admin: 04/16/25 08:18 Dose: 81 mg Documented By: RAY Atorvastatin Calcium (Atorvastatin Calcium 20 Mg Tablet) 20 mg PO BEDTIME [facility] Last Admin: 04/15/25 20:41 Dose: 20 mg Documented By: YUE Baclofen (Baclofen 10 Mg Tablet) 10 mg PO BEDTIME PRN PRN Reason: Muscle Spasm Bupropion HCl (Bupropion Hcl Xl 300 Mg Tab.Er.24h) 300 mg PO DAILY [facility] Last Admin: 04/16/25 08:18 Dose: 300 mg Documented By: RAY Calcium Carbonate (Calcium Carbonate 750 Mg Tab.Chew) 750 mg PO Q4H PRN PRN Reason: Heartburn Last Admin: 04/15/25 21:54 Dose: 750 mg Documented By: YUE Carvedilol (Carvedilol 12.5 Mg Tablet) 12.5 mg PO BID [facility]; Protocol Last Admin: 04/16/25 08:18 Dose: 12.5 mg Documented By: RAY Ceftriaxone Sodium (Ceftriaxone Sodium 1 Gm Vial) 1 gm IVPUSH Q24H [facility] Last Admin: 04/15/25 20:40 Dose: 1 gm Documented By: YUE Clotrimazole (Clotrimazole 1 % Cream 15 Gm Tube) 1 appl TOPICAL DAILY PRN; Protocol PRN Reason: Rash Empagliflozin (Empagliflozin 10 Mg Tablet) 10 mg PO DAILY [facility] Last Admin: 04/16/25 08:18 Dose: 10 mg Documented By: RAY Escitalopram Oxalate (Escitalopram Oxalate 10 Mg Tablet) 10 mg PO BEDTIME [facility] Last Admin: 04/15/25 20:41 Dose: 10 mg Documented By: YUE Famotidine (Famotidine 20 Mg Tablet) 20 mg PO DAILY@1630 [facility] Last Admin: 04/15/25 16:48 Dose: 20 mg Documented By: RAY Fluticasone/Vilanterol (Fluticasone/Vilanterol 200/ Blst.W.Dev) 1 puff INHALE RDAILY [facility] Last Admin: 04/16/25 08:05 Dose: 1 puff Documented By: ALFREDO Fluvoxamine Maleate (Fluvoxamine Maleate 50 Mg Tablet) 200 mg PO BEDTIME [facility] Last Admin: 04/15/25 20:41 Dose: 200 mg Documented By: YUE Gabapentin (Gabapentin 100 Mg Capsule) 100 mg PO BID [facility] Last Admin: 04/16/25 08:18 Dose: 100 mg Documented By: RAY Heparin Sodium (Porcine) (Heparin Sodium,Porcine 5,000 Unit/Ml Vial) 5,000 unit SUBCUT Q12H [facility] Last Admin: 04/16/25 08:18 Dose: 5,000 unit Documented By: RAY Hydrocortisone (Hydrocortisone 1 % Cream 28.35 Gm Tube) 1 appl TOPICAL BID PRN; Protocol PRN Reason: Rash Hydroxyzine HCl (Hydroxyzine Hcl 50 Mg Tablet) 50 mg PO DAILY PRN PRN Reason: Anxiety Vancomycin HCl 1,250 mg/ (Sodium Chloride) 250 mls @ 166.667 mls/hr IV Q24H [facility] Last Infusion: 04/15/25 22:35 Dose: Infused Documented By: YUE Ipratropium [place] (Ipratropium [place] José Manuel 0.03 % 30 Ml [place]) 1 spray NOSTRIL-B DAILY [facility] Last Admin: 04/15/25 11:32 Dose: Not Given Documented By: RAY Non-Admin Reason: Med Not Available Levothyroxine Sodium (Levothyroxine Sodium 150 Mcg Tablet) 150 mcg PO DAILY@0600 [facility] Last Admin: 04/16/25 05:46 Dose: 150 mcg Documented By: YUE Magnesium Hydroxide (Milk Of Magnesia 30 Ml Oral.Susp) 30 ml PO DAILY PRN PRN Reason: Constipation Melatonin (Melatonin 3 Mg Tablet) 6 mg PO BEDTIME PRN PRN Reason: Insomnia Nystatin (Nystatin Powder 15 Gm Bottle) 1 appl TOPICAL TID [facility]; Protocol Last Admin: 04/16/25 08:23 Dose: 1 appl Documented By: RAY Nystatin (Nystatin Powder 15 Gm Bottle) 1 appl TOPICAL BID PRN; Protocol PRN Reason: Rash Oxycodone HCl (Oxycodone Hcl Immed Release 5 Mg Tablet) 5 mg PO Q6H PRN PRN Reason: Leg pain Pharmacy Consult (Consult Rx Vancomycin Dosing) 1 each MISCELLANE DAILY PRN PRN Reason: Consult order Simethicone (Simethicone 80 Mg Tab.Chew) 160 mg PO QIDWMHS PRN PRN Reason: gas Sodium Chloride (0.9 % Sodium Chloride Flush 3 Ml Syringe) 3 ml IVFLUSH QSHIFT [facility] Last Admin: 04/16/25 08:18 Dose: 3 ml Documented By: RAY Torsemide (Torsemide 20 Mg Tablet) 20 mg PO BID@0900,1600 [facility]; Protocol Last Admin: 04/16/25 08:18 Dose: 20 mg Documented By: RAY Vitamin D (Cholecalciferol (Vitamin D3) 25 Mcg Tablet) 25 mcg PO DAILY [facility] Last Admin: 04/16/25 08:18 Dose: 25 mcg Documented By: RAY Labs 04/16/25 05:43 04/16/25 05:43 Labs: Laboratory Results - last 24 hr 04/16/25 05:43 MCV 92.2 MCH 29.1 MCHC 31.5 RDW 13.3 Plt Count 216 MPV 11.0 Immature Gran % (Auto) 0.3 Neut % (Auto) 57.8 Lymph % (Auto) 24.6 [place] % (Auto) 11.3 H Eos % (Auto) 5.5 H Baso % (Auto) 0.5 Lymph # (Auto) 1.4 [place] # (Auto) 0.7 Eos # (Auto) 0.3 Baso # (Auto) 0.0 Abs Immat Gran (auto) 0.02 Absolute Neuts (auto) 3.4 Absolute Nucleated RBC 0.000 Nucleated RBC % (auto) 0.0 Hold Purple Top SEE NOTE Anion Gap 13 Estim Creat Clear Calc 73.7 Estimated GFR > 60 Microbiology Microbiology Results: Microbiology 04/14/25 15:12 Blood Culture - Preliminary Blood - Venous No growth after 24 hours. 04/14/25 14:56 Blood Culture - Preliminary Blood - Venous No growth after 24 hours. Assessment and Plan (1) Knee pain, right: Status: Acute (2) Traumatic ecchymosis of multiple sites of lower extremity: Status: Acute (3) Cellulitis: Status: Acute Plan Sharon Nugent is a 75 y/o woman presents with: Bilateral lower extremity worsening edema and extensive bruising in the setting of chronic lymphedema after traumatic (April 05) to both knees from fall; possible superimposed infection/cellulitis. Fall precautions. Continue empiric IV antibiotic therapy with vancomycin and Rocephin, change to Doxy if cultures negative. Compression therapy. Elevate extremities. Bilat LE venous ultrasound has been repeated - results pending (prior was negative for DVT on 04/11 ). Continue torsemide. Physiotherapy. Normocytic anemia, likely secondary to above: Traumatic ecchymosis after bilateral knee trauma. Continue to monitor H&H. Hypothyroidism. Continue levothyroxine. Essential hypertension. BP on lower side hold Norvasc and Lisinopril. Coreg at half the dose Mood disorder. Continue bupropion, aripiprazole Gout. Continue allopurinol. Morbid obesity. BMI 45.3 kg/m2. Weight loss. DVT prophylaxis: Heparin Code status: Full PT eval Quality Stroke Does the patient have a stroke diagnosis?: No VTE Prior VTE?: No VTE Risk Level:: Medical - moderate - high VTE Device Contraindication: Treatment Not Indicated VTE Drug Contraindication: N/A - Med Ordered
[2025-04-16] MEDS: Ipratropium Bromide Nas 0.03 % 30 ML SPRAY 1 SPRAY NOSTRIL-B (11:17)
[2025-04-16 14:56] VITALS: BP 108/51; PULSE 76; RESP 18; TEMP 36.9; O2SAT 98
[2025-04-16 20:00] VITALS: BP 130/60; PULSE 77; RESP 18; TEMP 36.6; O2SAT 94
[2025-04-16] MEDS: oxyCODONE HCl Immed Release 5 MG TABLET PO (20:51)
[2025-04-17] VITALS (7 sets, daily range): BP systolic 101–122; BP diastolic 46–59; PULSE 73–88; RESP 17–18; TEMP 36.4–36.8; O2SAT 90–94
[2025-04-17] MEDS: oxyCODONE HCl Immed Release 5 MG TABLET PO ×3 (04:00→20:05)
[2025-04-17] MEDS: Fluticasone/Vilanterol 200/25 BLST.W.DEV 1 PUFF INHALE (08:42)
[2025-04-17] MEDS: buPROPion HCl XL 300 MG TAB.ER.24H PO (09:24)
[2025-04-17] MEDS: Ipratropium Bromide Nas 0.03 % 30 ML SPRAY 1 SPRAY NOSTRIL-B (09:27)
[2025-04-17] MEDS: 0.9 % Sodium Chloride Flush 3 ML SYRINGE IVFLUSH ×2 (09:28→16:23)
--- NOTE | 2025-04-17 09:34 | P.PNIM_ITS ---
Subjective Subjective Date of Service: 04/17/25 Interval History: Seen and examied, no new issues, bruses in legs and redness much better Physical Exam 2 Vital Signs: Vital Signs: Last Vital Signs Temp 98.3 F 04/17/25 07:36 Pulse 82 04/17/25 09:24 Resp 18 04/17/25 08:44 BP 113/59 L 04/17/25 09:24 Pulse Ox 94 04/17/25 07:36 O2 Del Method Room Air 04/17/25 07:36 O2 Flow Rate 1 04/15/25 07:38 BMI result Body Mass Index 44.1 Appearance: Alert.?Oriented to person, place and time. No acute distress.?Normal affect. CVS: [id number] Respiratory: No respiratory distress.? Lung sounds clear to auscultation bilaterally?? Abdomen: Soft and non-tender. Normoactive bowel sounds. No pulsatile mass.?? Skin: see pics, bruses seem better, some erythema to left leg Extremities: swelling and bruses as in the pictures Neuro: Moves all extremities spontaneously. Sensation intact bilaterally. CN II- XII intact. No focal neuro deficits. Extrem: Other: Skin is soft negative for skin being tight or any palpable hard mass around leg specially ecchymosis areas. Pedal pulses intact. Neuro exam intact. Motor exam limited due to swelling/lymphedema. Areas of erythema or warm. Objective Data Active Medications Acetaminophen (Acetaminophen 325 Mg Tablet) 975 mg PO Q6H PRN PRN Reason: Pain, Mild 1-3,fever,headache Last Admin: 04/16/25 14:37 Dose: 975 mg Documented By: RAY Albuterol Sulfate (Albuterol Sulfate 90 Mcg 8 Gm Inhaler) 2 puff INHALE Q4H PRN PRN Reason: Wheezing Allopurinol (Allopurinol 100 Mg Tablet) 100 mg PO DAILY [facility] Last Admin: 04/17/25 09:25 Dose: 100 mg Documented By: MAURO Aripiprazole (Aripiprazole 2 Mg Tablet) 2 mg PO DAILY [facility] Last Admin: 04/17/25 09:23 Dose: 2 mg Documented By: MAURO Aspirin (Aspirin 81 Mg Tab.Chew) 81 mg PO DAILY [facility] Last Admin: 04/17/25 09:25 Dose: 81 mg Documented By: MAURO Atorvastatin Calcium (Atorvastatin Calcium 20 Mg Tablet) 20 mg PO BEDTIME [facility] Last Admin: 04/16/25 20:51 Dose: 20 mg Documented By: MEMO Baclofen (Baclofen 10 Mg Tablet) 10 mg PO BEDTIME PRN PRN Reason: Muscle Spasm Bupropion HCl (Bupropion Hcl Xl 300 Mg Tab.Er.24h) 300 mg PO DAILY [facility] Last Admin: 04/17/25 09:24 Dose: 300 mg Documented By: MAURO Calcium Carbonate (Calcium Carbonate 750 Mg Tab.Chew) 750 mg PO Q4H PRN PRN Reason: Heartburn Last Admin: 04/16/25 14:37 Dose: 750 mg Documented By: RAY Carvedilol (Carvedilol 12.5 Mg Tablet) 12.5 mg PO BID [facility]; Protocol Last Admin: 04/17/25 09:24 Dose: 12.5 mg Documented By: MAURO Ceftriaxone Sodium (Ceftriaxone Sodium 1 Gm Vial) 1 gm IVPUSH Q24H [facility] Last Admin: 04/16/25 20:50 Dose: 1 gm Documented By: MEMO Clotrimazole (Clotrimazole 1 % Cream 15 Gm Tube) 1 appl TOPICAL DAILY PRN; Protocol PRN Reason: Rash Doxycycline Monohydrate (Doxycycline Monohydrate 100 Mg Capsule) 100 mg PO BID [facility] Last Admin: 04/17/25 09:23 Dose: 100 mg Documented By: MAURO Empagliflozin (Empagliflozin 10 Mg Tablet) 10 mg PO DAILY [facility] Last Admin: 04/17/25 09:23 Dose: 10 mg Documented By: MAURO Escitalopram Oxalate (Escitalopram Oxalate 10 Mg Tablet) 10 mg PO BEDTIME [facility] Last Admin: 04/16/25 20:51 Dose: 10 mg Documented By: MEMO Famotidine (Famotidine 20 Mg Tablet) 20 mg PO DAILY@1630 [facility] Last Admin: 04/16/25 16:19 Dose: 20 mg Documented By: RAY Fluticasone/Vilanterol (Fluticasone/Vilanterol 200/25 Blst.W.Dev) 1 puff INHALE RDAILY [facility] Last Admin: 04/17/25 08:42 Dose: 1 puff Documented By: DESEAN Fluvoxamine Maleate (Fluvoxamine Maleate 50 Mg Tablet) 200 mg PO BEDTIME [facility] Last Admin: 04/16/25 20:51 Dose: 200 mg Documented By: MEMO Gabapentin (Gabapentin 100 Mg Capsule) 100 mg PO BID [facility] Last Admin: 04/17/25 09:24 Dose: 100 mg Documented By: MAURO Heparin Sodium (Porcine) (Heparin Sodium,Porcine 5,000 Unit/Ml Vial) 5,000 unit SUBCUT Q12H [facility] Last Admin: 04/17/25 09:27 Dose: 5,000 unit Documented By: MAURO Hydrocortisone (Hydrocortisone 1 % Cream 28.35 Gm Tube) 1 appl TOPICAL BID PRN; Protocol PRN Reason: Rash Hydroxyzine HCl (Hydroxyzine Hcl 50 Mg Tablet) 50 mg PO DAILY PRN PRN Reason: Anxiety Last Admin: 04/16/25 20:51 Dose: 50 mg Documented By: MEMO Ipratropium [place] (Ipratropium [place] José Manuel 0.03 % 30 Ml [place]) 1 spray NOSTRIL-B DAILY [facility] Last Admin: 04/17/25 09:27 Dose: 1 spray Documented By: MAURO Levothyroxine Sodium (Levothyroxine Sodium 150 Mcg Tablet) 150 mcg PO DAILY@0600 [facility] Last Admin: 04/17/25 05:14 Dose: 150 mcg Documented By: MEMO Magnesium Hydroxide (Milk Of Magnesia 30 Ml Oral.Susp) 30 ml PO DAILY PRN PRN Reason: Constipation Melatonin (Melatonin 3 Mg Tablet) 6 mg PO BEDTIME PRN PRN Reason: Insomnia Nystatin (Nystatin Powder 15 Gm Bottle) 1 appl TOPICAL TID [facility]; Protocol Last Admin: 04/17/25 09:27 Dose: 1 appl Documented By: MAURO Nystatin (Nystatin Powder 15 Gm Bottle) 1 appl TOPICAL BID PRN; Protocol PRN Reason: Rash Oxycodone HCl (Oxycodone Hcl Immed Release 5 Mg Tablet) 5 mg PO Q6H PRN PRN Reason: Leg pain Last Admin: 04/17/25 04:00 Dose: 5 mg Documented By: MEMO Simethicone (Simethicone 80 Mg Tab.Chew) 160 mg PO QIDWMHS PRN PRN Reason: gas Sodium Chloride (0.9 % Sodium Chloride Flush 3 Ml Syringe) 3 ml IVFLUSH QSHIFT [facility] Last Admin: 04/17/25 09:28 Dose: 3 ml Documented By: MAURO Torsemide (Torsemide 20 Mg Tablet) 20 mg PO BID@0900,1600 [facility]; Protocol Last Admin: 04/17/25 09:23 Dose: 20 mg Documented By: MAURO Vitamin D (Cholecalciferol (Vitamin D3) 25 Mcg Tablet) 25 mcg PO DAILY [facility] Last Admin: 04/17/25 09:24 Dose: 25 mcg Documented By: MAURO Labs 04/16/25 05:43 04/16/25 05:43 Labs: Laboratory Results - last 24 hr 04/16/25 05:43 MCV 92.2 MCH 29.1 MCHC 31.5 RDW 13.3 Plt Count 216 MPV 11.0 Immature Gran % (Auto) 0.3 Neut % (Auto) 57.8 Lymph % (Auto) 24.6 [place] % (Auto) 11.3 H Eos % (Auto) 5.5 H Baso % (Auto) 0.5 Lymph # (Auto) 1.4 [place] # (Auto) 0.7 Eos # (Auto) 0.3 Baso # (Auto) 0.0 Abs Immat Gran (auto) 0.02 Absolute Neuts (auto) 3.4 Absolute Nucleated RBC 0.000 Nucleated RBC % (auto) 0.0 Hold Purple Top SEE NOTE Anion Gap 13 Estim Creat Clear Calc 73.7 Estimated GFR > 60 Microbiology Microbiology Results: Microbiology 04/14/25 15:12 Blood Culture - Preliminary Blood - Venous No growth after 48 hours. 04/14/25 14:56 Blood Culture - Preliminary Blood - Venous No growth after 48 hours. Assessment and Plan (1) Knee pain, right: Status: Acute (2) Traumatic ecchymosis of multiple sites of lower extremity: Status: Acute (3) Cellulitis: Status: Acute Plan Sharon Nugent is a 75 y/o woman presents with: Bilateral lower extremity edema and extensive bruising in the setting of chronic lymphedema after trauma (April 05) to both knees from fall; possible superimposed infection/cellulitis of left leg. Bruises are better, redness of left leg better, persistent swelling. US negative for DVT. Empiric Doxy for possible cellulitis Elevate legs. PT for mobility Torsemide for swelling, check bmp Normocytic anemia, likely secondary to above: Traumatic ecchymosis after bilateral knee trauma. Continue to monitor H&H. Hypothyroidism. levothyroxine. HTN Hold Norvasc, and Lisinopril as BP on lower side. continue Coreg at half home dose Mood disorder. Continue bupropion, aripiprazole Gout. Continue allopurinol. Morbid obesity. BMI 45.3 kg/m2. Weight loss. DVT prophylaxis: Heparin Code status: Full PT eval and will likely need STR Quality Stroke Does the patient have a stroke diagnosis?: No VTE Prior VTE?: No VTE Risk Level:: Medical - moderate - high VTE Device Contraindication: Treatment Not Indicated VTE Drug Contraindication: N/A - Med Ordered
[2025-04-17 10:47] LABS: Hematocrit 37.2 % (37.0-47.0); Hemoglobin 11.7 g/dl (12.0-16.0); Mean Corpuscular HGB Conc 31.5 g/dl (31.0-35.0); Mean Corpuscular Hemoglobin 29.1 pg (27.0-33.0); Mean Corpuscular Volume 92.5 fL (80.0-98.0); NRBC Abs Auto 0.000 X10*3/uL (0.0-0.012); NRBC Pct Auto 0.0 /100WBC (0.0-0.2); Platelet Count 236 X10*3/uL (160-400); Red Blood Count 4.02 X10*6/uL (4.20-5.50); White Blood Count 6.1 X10*3/uL (4.8-10.8)
[2025-04-17 11:47] LABS: Anion Gap 13 (12-20); Blood Urea Nitrogen 22 mg/dL (9-16); Calcium 10.1 mg/dL (8.4-10.2); Carbon Dioxide 28 mmol/L (22-29); Chloride 104 mmol/L (96-108); Creatinine Clr Calc Pharmacy 58.5; Estimated Glomerular Filt Rate 53; Potassium 3.7 mmol/L (3.3-5.1); Sodium 141 mmol/L (135-145)
--- NOTE | 2025-04-17 13:15 | MHC.CM.PN ---
EMR REVIEWED AND PER MD ROUNDS, PT IS NOT YET MEDICALLY CLEARED FOR DC. P.T. SAW PT AND RECOMMEND STR HOWEVER PT IS DECLINING AND WOULD LIKE TO GO TO HOME WITH SERVICES. REFERRAL SENT TO [facility] (FIRST CHOICE). CM WILL CONTINUE TO FOLLOW FOR ANY CHANGE TO DC PLAN/NEEDS.
[2025-04-18 04:00] VITALS: BP 100/49; PULSE 77; RESP 18; TEMP 36; O2SAT 93
[2025-04-18 07:51] VITALS: BP 113/56; PULSE 80; RESP 17; TEMP 36.2; O2SAT 92
[2025-04-18] MEDS: Fluticasone/Vilanterol 200/25 BLST.W.DEV 1 PUFF INHALE (07:55)
[2025-04-18 07:57] VITALS: PULSE 75; RESP 14; O2SAT 93
[2025-04-18] MEDS: buPROPion HCl XL 300 MG TAB.ER.24H PO (08:38)
[2025-04-18] MEDS: 0.9 % Sodium Chloride Flush 3 ML SYRINGE IVFLUSH (08:39)
--- NOTE | 2025-04-18 08:49 | PM.DS ---
DS: Providers Provider Date of Service: 04/18/25 Date of admission: 04/14/25 18:25 Date of discharge: 04/18/25 Primary care physician: Raven Lyons MD Consults: 04/15/25 00:00 Consult to Wound Care Routine Reason for consultation: see note 04/15/25 05:08 Consult to Urology Routine Consulting Provider: [facility] Reason for consultation: urinary retention DS: Diagnosis Discharge Diagnosis (1) Knee pain, right: Status: Acute (2) Traumatic ecchymosis of multiple sites of lower extremity: Status: Acute (3) Cellulitis: Status: Acute DS: Summary Hospital Course Hospital Course: Admission HPI Chief Complaint: Worsening legs swelling Sharon Nugent is a 75 years old woman with past medical history significant for morbid obesity, chronic lymphedema of the lower extremities, hypothyroidism, PTSD/depression and essential hypertension presents to the emergency department for the 2nd time in the last 2 weeks due to worsening swelling and pain to the lower extremities, more prominent in the knees. Recently, she sustained a fall (April 05) landing on both knees resulting in bruising around both knees. Subsequently, the bruising propagated to the ankles. She is not able to walk well or bear weight; and is unable to flex her knees appropriately. She does take torsemide for lymphedema. She denied any headache, palpitations, shortness on breath, cough, fever, chills, abdominal pain, nausea, vomiting or diarrhea. She denied alcohol abuse or illicit drug abuse. She takes aspirin but no anticoagulants. In the ED, she was found to have stable vital signs. She has no leukocytosis. C-reactive protein is elevated, 5.69. Her hemoglobin significantly dropped from 15.4 to 11.8 over the last 3 months. There are no significant electrolyte imbalances. BUN is 27 and creatinine 0.90. LFTs are essentially normal. Calcium is 10.5. INR is 1.1. Three days ago she underwent bilateral lower extremity venous ultrasound that showed no DVT. She also head CT scan that showed no acute intracranial abnormalities. Left knee x-ray showed moderate to severe 3 compartment osteoarthrosis involving mostly the medial compartment, no fractures or dislocation. Right knee x-ray showed tricompartmental arthrosis, [id number] involving mostly to the medial compartment, no fractures or dislocations. Bilateral Tib fib x-rays done today showed no acute bony abnormality neither tibia fibula; it is showed diffuse subcutaneous soft tissue edema bilaterally. ED tx: Morphine 6 mg IV/IM total, ceftriaxone 1 g IV, vancomycin 2 g IV Hospital course: Patient had falling days earlier and was seen in the ED, she came back because of worsened bruises/echymosis, pain and some redness of the left leg and was admitted for further management for the problems below Bilateral lower extremity edema and extensive bruising/echymosis in the setting of chronic lymphedema after trauma (April 05) to both knees from fall; possible superimposed infection/cellulitis of left leg.CK was normal. DVT was negative to the legs. She has been treated empirically for Cellulitis of the left leg, redness is better and overall bruises are better with elevation of th legs. She was seen by PT and recommended for short term rehab but adamantly refusing in favor of going home with home health service. She will be discharged with Doxycyline to complete 7 days of treatment. To continue Torsemide for swelling in the legs Normocytic anemia, likely secondary to above: Traumatic ecchymosis after bilateral knee trauma. Continue to monitor H&H. Hypothyroidism. levothyroxine. HTN--Blood pressure have been on lower side and Lisinopril and Norvasc stopped and Coreg dose to half 12.5 bid. BP currently 113/56 Mood disorder. Continue bupropion, aripiprazole Gout. Continue allopurinol. Morbid obesity. BMI 45.3 kg/m2. Weight loss. Dispo: home with [facility] Time Attestation Discharge Coordination Time (in mins): 45 Quality: Safe Use of Opioids Does Pt have an Active Cancer Diagnosis on the Problem List?: No Quality: Stroke Does the patient have a stroke diagnosis?: No Physical Exam Vital Signs: Vital Signs: Last Vital Signs Temp 97.1 F 04/18/25 07:51 Pulse 75 04/18/25 07:57 Resp 14 04/18/25 07:57 BP 113/56 L 04/18/25 07:51 Pulse Ox 92 04/18/25 07:51 O2 Del Method Room Air 04/18/25 07:51 O2 Flow Rate 1 04/15/25 07:38 BMI result Body Mass Index 44.1 DS: Data Data Completed and Pending Labs on day of discharge: Laboratory Results - last 24 hr 04/17/25 10:12 WBC 6.1 RBC 4.02 L Hgb 11.7 L Hct 37.2 MCV 92.5 MCH 29.1 MCHC 31.5 RDW 13.2 Plt Count 236 MPV 10.6 Absolute Nucleated RBC 0.000 Nucleated RBC % (auto) 0.0 Sodium 141 Potassium 3.7 Chloride 104 Carbon Dioxide 28 Anion Gap 13 BUN 22 H Creatinine 1.02 Estim Creat Clear Calc 58.5 Estimated GFR 53 Random Glucose 107 Calcium 10.1 Preliminary micro results at discharge 04/14/25 15:12 Blood Culture - Preliminary Blood - Venous No growth after 48 hours. 04/14/25 14:56 Blood Culture - Preliminary Blood - Venous No growth after 48 hours. Discharge Plan Discharge Anticipated Discharge Date/Time: 04/18/25 08:50 Patient Disposition: Home Health Service Discharge Diagnosis: Fall, contusion, Bruises, cellulitis Referrals: [facility] [Outside] - 1 Week Raven Lyons MD [Primary Care Provider, Internal Medicine] - 1 Week Discharge Medications: New doxycycline monohydrate 100 mg Capsule 100 mg PO BID Qty: 12 0RF Continued carvedilol 25 mg tablet 1 tab PO BID aspirin 81 mg tablet,chewable 1 tab PO DAILY albuterol sulfate 90 mcg/actuation HFA aerosol inhaler 2 puff PO Q4H PRN (Reason: wheezing) losartan 100 mg tablet 1 tab PO DAILY rosuvastatin 5 mg tablet 1 tab PO BEDTIME cholecalciferol (vitamin D3) [Vitamin D3] 25 mcg (1,000 unit) tablet 1 tab PO DAILY bupropion HCl 300 mg tablet extended release 24 hr 1 tab PO DAILY Qty: 90 0RF hydroxyzine HCl 50 mg tablet 50 mg PO DAILY PRN (Reason: anxiety) Qty: 90 0RF fluvoxamine 100 mg tablet 200 mg PO BEDTIME torsemide 20 mg tablet 20 mg PO BID@0900,1600 allopurinol 100 mg tablet 100 mg PO DAILY baclofen 10 mg tablet 10 mg PO BEDTIME PRN (Reason: Muscle Spasm) amlodipine 10 mg tablet 10 mg PO DAILY simethicone [Gas Relief (simethicone)] 125 mg tablet,chewable 125 mg PO QIDWMHS PRN (Reason: gas) nystatin 100,000 unit/gram powder 1 appl topical BID PRN (Reason: Rash) Rx Instructions: apply to affected areas under breast or leg folds ketoconazole 2 % cream 1 appl topical DAILY PRN (Reason: Rash) clotrimazole 1 % cream 1 appl topical DAILY PRN (Reason: Rash) Rx Instructions: apply to affected areas dapagliflozin propanediol [Farxiga] 10 mg tablet 10 mg PO DAILY budesonide-formoterol [Symbicort] 160-4.5 mcg/actuation HFA aerosol inhaler 2 inh inhalation BID famotidine 20 mg tablet 20 mg PO DAILY@1630 levothyroxine 150 mcg tablet 150 mcg PO DAILY@0600 gabapentin 100 mg capsule 100 mg PO BID ipratropium bromide 21 mcg (0.03 %) spray,non-aerosol 21 mcg intranasal DAILY escitalopram oxalate 10 mg tablet 10 mg PO BEDTIME aripiprazole 2 mg tablet 2 mg PO DAILY hydrocortisone 1 % Cream 1 appl TOPICAL BID PRN (Reason: Rash) acetaminophen [Tylenol Arthritis Pain] 650 mg Tablet Extended Release 1,300 mg PO Q8H PRN (Reason: Pain) Discharge Orders: Discharge Order (Routine); Ordered 04/18/25 Ordered By: Estuardo Corbett Diet: Advance to usual diet Activity on Discharge: As tolerated Stand Alone Forms: Patient Portal Discharge page Print Language: Turkmen Care Plan Goals: recovery from fall, contrusion, bruises, cellulitis of the leg Health Concerns: same as above Plan of Treatment: Doxycyline for cellulitis and PT and OT at home Assessment: see above Discharge Date/Time: 04/18/25 12:27
--- NOTE | 2025-04-18 10:59 | P.F2F_ITS ---
Service Date Service Date: 04/18/25 Encounter Date of encounter: 04/18/25 Reasons for Services Signs and symptoms assessed: weakness in leg from recent fall with trauma to the knees Reason for mcfp: teach disease management Reason for physical therapy: home safety and mobility, therapeutic exercises and gait/transfer training Reason for occupational therapy: home safety and mobility, therapeutic exercises and gait/transfer training Homebound: Leaving the home is medically contraindicated at this time without the asist of a device and/or another person due th the listed conditions above and below. Reason homebound: unsteady gait / fall risk and fall risk related to blood pressure changes Homebound supporting statement: Homebound due to weakness in legs, high fall risk and therefore needs the [facility] person Certification: Based on the above findings, I certify that this patient is confined to the home and needs intermittent mcfp care, physical therapy and/or speech therapy, or continues to need occupational therapy. The patient is under my care, and I have initiated the establishment of the plan of care. The patient w ill be followed by a physician who will periodically review the plan of care. Time Spent With Patient Time: Total time managing care of this patient today ____ minutes.
[2025-04-18] MEDS: Ipratropium Bromide Nas 0.03 % 30 ML SPRAY 1 SPRAY NOSTRIL-B (11:12)
--- NOTE | 2025-04-18 11:39 | PM.UROCN ---
History of Present Illness Consult details Consult date: 04/18/25 Narrative: Sharon was admitted secondary to a fall. Urology called due to patient with difficulty voiding needing to be catheterized. Currently patient is ambulating with assist and urinating on her own. Review of Systems Review of Systems: Yes all other systems are reviewed and are negative Constitutional: Constitutional: Reports no additional constitutional complaints Eyes: Eyes: Reports no additional eye complaints ENT: Reports system reviewed and no additional complaints, except as documented Cardiovascular: Cardiovascular: Reports no additional cardiovascular complaints Respiratory: Respiratory: Reports no additional respiratory complaints Gastrointestinal: Gastrointestinal: Reports no additional gastrointestinal complaints Genitourinary: Genitourinary: Reports as per HPI Musculoskeletal: Musculoskeletal: Reports no additional musculoskeletal complaints Integumentary/Breasts: Skin/Breast: Reports system reviewed and no additional complaints, except as docu Neurologic: Reports system reviewed and no additional complaints, except as documented Psychiatric: Psychiatric: Reports no additional psychiatric complaints Endocrine: Endocrine: Reports no additional endocrine complaints Hematologic/Lymphatic: Hematologic/Lymphatic: Reports no additional hematologic/lymphatic complaints Allergic/Immunologic: Allergic/Immunologic: Reports no additional allergic/immunologic complaints [facility] Past Medical History Medical History PTSD (post-traumatic stress disorder) Recurrent major depression-severe Family History Family History Other Depression Social History Social History Household Members: None Household Members Other:: Lives with her cat Housing: Other Housing Other:: [facility] Are you a primary manager of care to a significant other at home: No Do you presently have visiting nurse or other home services: No Alcohol intake: never Patient Tobacco Use Status: Never used Tobacco Advance Directives Date on File: 03/26/23 service: No Meds Allergies Allergy/AdvReac Type Severity Reaction Status Date / Time lisinopril (LISINOPRIL) Allergy Intermediate RASH Verified 04/14/25 12:36 quetiapine (From SEROQUEL) Allergy Intermediate RASH Verified 04/14/25 12:36 sertraline (From ZOLOFT) Allergy Intermediate RASH, Verified 04/14/25 12:36 DIZZINESS loratadine (From CLARITIN) Allergy Mild UNKNOWN Verified 04/14/25 12:36 methimazole (From TAPAZOLE) Allergy Mild RASH Verified 04/14/25 12:36 potassium chloride Allergy Unknown Unknown Verified 04/14/25 12:36 propranolol (PROPRANOLOL) AdvReac Severe anergy Verified 04/14/25 12:36 Active Medications: Current Medications Acetaminophen (Acetaminophen 325 Mg Tablet) 975 mg PO Q6H PRN PRN Reason: Pain, Mild 1-3,fever,headache Last Admin: 04/16/25 14:37 Dose: 975 mg Albuterol Sulfate (Albuterol Sulfate 90 Mcg 8 Gm Inhaler) 2 puff INHALE Q4H PRN PRN Reason: Wheezing Allopurinol (Allopurinol 100 Mg Tablet) 100 mg PO DAILY [facility] Last Admin: 04/18/25 08:37 Dose: 100 mg Aripiprazole (Aripiprazole 2 Mg Tablet) 2 mg PO DAILY [facility] Last Admin: 04/18/25 08:37 Dose: 2 mg Aspirin (Aspirin 81 Mg Tab.Chew) 81 mg PO DAILY [facility] Last Admin: 04/18/25 08:37 Dose: 81 mg Atorvastatin Calcium (Atorvastatin Calcium 20 Mg Tablet) 20 mg PO BEDTIME [facility] Last Admin: 04/17/25 20:05 Dose: 20 mg Baclofen (Baclofen 10 Mg Tablet) 10 mg PO BEDTIME PRN PRN Reason: Muscle Spasm Bupropion HCl (Bupropion Hcl Xl 300 Mg Tab.Er.24h) 300 mg PO DAILY [facility] Last Admin: 04/18/25 08:38 Dose: 300 mg Calcium Carbonate (Calcium Carbonate 750 Mg Tab.Chew) 750 mg PO Q4H PRN PRN Reason: Heartburn Last Admin: 04/17/25 20:12 Dose: 750 mg Carvedilol (Carvedilol 12.5 Mg Tablet) 12.5 mg PO BID [facility]; Protocol Last Admin: 04/18/25 08:37 Dose: 12.5 mg Ceftriaxone Sodium (Ceftriaxone Sodium 1 Gm Vial) 1 gm IVPUSH Q24H [facility] Last Admin: 04/17/25 20:04 Dose: 1 gm Clotrimazole (Clotrimazole 1 % Cream 15 Gm Tube) 1 appl TOPICAL DAILY PRN; Protocol PRN Reason: Rash Doxycycline Monohydrate (Doxycycline Monohydrate 100 Mg Capsule) 100 mg PO BID [facility] Last Admin: 04/18/25 08:38 Dose: 100 mg Empagliflozin (Empagliflozin 10 Mg Tablet) 10 mg PO DAILY [facility] Last Admin: 04/18/25 08:38 Dose: 10 mg Escitalopram Oxalate (Escitalopram Oxalate 10 Mg Tablet) 10 mg PO BEDTIME [facility] Last Admin: 04/17/25 20:05 Dose: 10 mg Famotidine (Famotidine 20 Mg Tablet) 20 mg PO DAILY@1630 [facility] Last Admin: 04/17/25 16:20 Dose: 20 mg Fluticasone/Vilanterol (Fluticasone/Vilanterol 200/25 Blst.W.Dev) 1 puff INHALE RDAILY [facility] Last Admin: 04/18/25 07:55 Dose: 1 puff Fluvoxamine Maleate (Fluvoxamine Maleate 50 Mg Tablet) 200 mg PO BEDTIME [facility] Last Admin: 04/17/25 20:04 Dose: 200 mg Gabapentin (Gabapentin 100 Mg Capsule) 100 mg PO BID [facility] Last Admin: 04/18/25 08:38 Dose: 100 mg Heparin Sodium (Porcine) (Heparin Sodium,Porcine 5,000 Unit/Ml Vial) 5,000 unit SUBCUT Q12H [facility] Last Admin: 04/18/25 08:38 Dose: 5,000 unit Hydrocortisone (Hydrocortisone 1 % Cream 28.35 Gm Tube) 1 appl TOPICAL BID PRN; Protocol PRN Reason: Rash Hydroxyzine HCl (Hydroxyzine Hcl 50 Mg Tablet) 50 mg PO DAILY PRN PRN Reason: Anxiety Last Admin: 04/17/25 20:05 Dose: 50 mg Ipratropium [employer] (Ipratropium [employer] 0.03 % 30 Ml [place]) 1 spray NOSTRIL-B DAILY [facility] Last Admin: 04/18/25 11:12 Dose: 1 spray Levothyroxine Sodium (Levothyroxine Sodium 150 Mcg Tablet) 150 mcg PO DAILY@0600 [facility] Last Admin: 04/18/25 05:23 Dose: 150 mcg Magnesium Hydroxide (Milk Of Magnesia 30 Ml Oral.Susp) 30 ml PO DAILY PRN PRN Reason: Constipation Magnesium Hydroxide (Milk Of Magnesia 30 Ml Oral.Susp) 30 ml PO DAILY PRN PRN Reason: Constipation Melatonin (Melatonin 3 Mg Tablet) 6 mg PO BEDTIME PRN PRN Reason: Insomnia Nystatin (Nystatin Powder 15 Gm Bottle) 1 appl TOPICAL TID [facility]; Protocol Last Admin: 04/18/25 08:39 Dose: 1 appl Nystatin (Nystatin Powder 15 Gm Bottle) 1 appl TOPICAL BID PRN; Protocol PRN Reason: Rash Oxycodone HCl (Oxycodone Hcl Immed Release 5 Mg Tablet) 5 mg PO Q6H PRN PRN Reason: Leg pain Last Admin: 04/17/25 20:05 Dose: 5 mg Polyethylene Glycol (Polyethylene Glycol 3350 17 Gm Powd.Pack) 17 gm PO DAILY PRN PRN Reason: Constipation Simethicone (Simethicone 80 Mg Tab.Chew) 160 mg PO QIDWMHS PRN PRN Reason: gas Sodium Chloride (0.9 % Sodium Chloride Flush 3 Ml Syringe) 3 ml IVFLUSH QSHIFT [place] Last Admin: 04/18/25 08:39 Dose: 3 ml Torsemide (Torsemide 20 Mg Tablet) 20 mg PO BID@0900,1600 [facility]; Protocol Last Admin: 04/18/25 08:38 Dose: 20 mg Vitamin D (Cholecalciferol (Vitamin D3) 25 Mcg Tablet) 25 mcg PO DAILY [facility] Last Admin: 04/18/25 08:38 Dose: 25 mcg Home Medications ?Medication ?Instructions ?Recorded ?Confirmed ?Last Taken ?Type albuterol sulfate 90 mcg/actuation 2 puff PO Q4H PRN wheezing 06/21/20 04/14/25 Unknown History aerosol inhaler aspirin 81 mg chewable tablet 1 tab PO DAILY 06/21/20 04/14/25 04/14/25 History carvedilol 25 mg tablet 1 tab PO BID 06/21/20 04/14/25 04/14/25 History cholecalciferol (vitamin D3) 25 1 tab PO DAILY 06/21/20 04/14/25 04/14/25 History mcg (1,000 unit) tablet (Vitamin D3) losartan 100 mg tablet 1 tab PO DAILY 06/21/20 04/14/25 04/14/25 History rosuvastatin 5 mg tablet 1 tab PO BEDTIME 06/21/20 04/14/25 04/13/25 History allopurinol 100 mg tablet 100 mg PO DAILY 03/26/23 04/14/25 04/14/25 History amlodipine 10 mg tablet 10 mg PO DAILY 03/26/23 04/14/25 04/14/25 History baclofen 10 mg tablet 10 mg PO BEDTIME PRN Muscle Spasm 03/26/23 04/14/25 Unknown History clotrimazole 1 % topical cream 1 appl topical DAILY PRN Rash 03/26/23 04/14/25 Unknown History dapagliflozin propanediol 10 mg 10 mg PO DAILY 03/26/23 04/14/25 04/14/25 History tablet (Farxiga) fluvoxamine 100 mg tablet 200 mg PO BEDTIME 03/26/23 04/14/25 04/13/25 History ketoconazole 2 % topical cream 1 appl topical DAILY PRN Rash 03/26/23 04/14/25 03/25/23 09:00 History nystatin 100,000 unit/gram topical 1 appl topical BID PRN Rash 03/26/23 04/14/25 Unknown History powder simethicone 125 mg chewable tablet 125 mg PO QIDWMHS PRN gas 03/26/23 04/14/25 Unknown History (Gas Relief (simethicone)) torsemide 20 mg tablet 20 mg PO BID@0900,1600 03/26/23 04/14/25 04/14/25 History acetaminophen 650 mg 1,300 mg PO Q8H PRN Pain 04/14/25 04/14/25 Unknown History tablet,extended release (Tylenol Arthritis Pain) aripiprazole 2 mg tablet 2 mg PO DAILY 04/14/25 04/14/25 04/14/25 History budesonide-formoterol HFA 160 2 inh inhalation BID 04/14/25 04/14/25 04/14/25 History mcg-4.5 mcg/actuation aerosol inhaler (Symbicort) escitalopram oxalate 10 mg tablet 10 mg PO BEDTIME 04/14/25 04/14/25 04/13/25 History famotidine 20 mg tablet 20 mg PO DAILY@1630 04/14/25 04/14/25 04/14/25 History gabapentin 100 mg capsule 100 mg PO BID 04/14/25 04/14/25 04/14/25 History hydrocortisone 1 % topical cream 1 appl topical BID PRN Rash 04/14/25 04/14/25 Unknown History ipratropium bromide 21 mcg (0.03 21 mcg intranasal DAILY [place]ose 04/14/25 04/14/25 Unknown History %) nasal spray levothyroxine 150 mcg tablet 150 mcg PO DAILY@0600 04/14/25 04/14/25 04/14/25 History Physical Exam Vital Signs: Vital Signs: Last Vital Signs Temp 97.1 F 04/18/25 07:51 Pulse 75 04/18/25 07:57 Resp 14 04/18/25 07:57 BP 113/56 L 04/18/25 07:51 Pulse Ox 92 04/18/25 07:51 O2 Del Method Room Air 04/18/25 07:51 O2 Flow Rate 1 04/15/25 07:38 BMI result Body Mass Index 44.1 Results Labs 04/17/25 10:12 04/17/25 10:12 Labs: Abnormal lab results 04/17/25 Range/Units 10:12 BUN 22 H (9-16) mg/dL BMP 04/17/25 10:12 Sodium 141 Potassium 3.7 Chloride 104 Carbon Dioxide 28 BUN 22 H Creatinine 1.02 Calcium 10.1 All other labs normal. Assessment and Plan (1) Urinary retention: Status: Acute Plan urinary retention, patient currently voiding, monitor PVR's Procedures Date of Service Date of Service: 04/18/25
--- NOTE | 2025-04-18 11:40 | MHC.CM.PN ---
IMM 04/18/25 Patient is discharged to home with [facility]. A referral has been sent to [facility] for additional [facility] hours at the patients request. Patient has arranged for transportation home.
== END 2025-04-18 12:27 | disposition home health service (06) | DRG 603 ==
LOC: HO.ED 17:45 → HO.EDOVER 18:40 → HO.S3 19:38
PROVIDERS: Physician Assistant; Admitting Provider Internal Medicine; Emergency Provider Emergency Medicine; PCP Internal Medicine; Visit Provider Internal Medicine
DX: L03.116 Cellulitis of left lower limb (principal); Z68.41 Body mass index [BMI] 40.0-44.9, adult; L03.115 Cellulitis of right lower limb; E66.01 Morbid (severe) obesity due to excess calories; D64.9 Anemia, unspecified; S80.12XA Contusion of left lower leg, initial encounter; S80.11XA Contusion of right lower leg, initial encounter; I89.0 Lymphedema, not elsewhere classified; W19.XXXA Unspecified fall, initial encounter; I10 Essential (primary) hypertension; E03.9 Hypothyroidism, unspecified; M10.9 Gout, unspecified; F39 Unspecified mood [affective] disorder; Z79.82 Long term (current) use of aspirin; Z79.890 Hormone replacement therapy; Z79.899 Other long term (current) drug therapy
CPT/HCPCS: 36415; 73564; 73590; 73620; 80048; 80051; 80053; 82550; 82565; 83605; 83735; 85025; 85027; 85610; 85652; 85730; 86140; 87040; 93970; 94640; 97116; 97162; 99285; J0696; J1644; J2270; J3373; J3374

== ENCOUNTER → 2025-04-14 15:45 | Outpatient (BNV) | payer OTHER, SELFPAY | PROVIDERS: Emergency Provider Emergency Medicine Emergency Medical Services; PCP Internal Medicine; Visit Provider Radiology Diagnostic Radiology | DX: M17.0 Bilateral primary osteoarthritis of knee (principal); R22.43 Localized swelling, mass and lump, lower limb, bilateral; R22.41 Localized swelling, mass and lump, right lower limb; R22.42 Localized swelling, mass and lump, left lower limb | CPT/HCPCS: 73564; 73590; 73620; 93970 ==

== ENCOUNTER → 2025-04-14 18:25 | Outpatient (BNV) | payer OTHER, SELFPAY | PROVIDERS: Admitting Provider Internal Medicine; Emergency Provider Emergency Medicine; PCP Internal Medicine; Visit Provider Urology | DX: R33.9 Retention of urine, unspecified (principal) | CPT/HCPCS: 99222 ==

== ENCOUNTER → 2025-04-14 18:25 | Outpatient (BNV) | payer OTHER, SELFPAY | PROVIDERS: Admitting Provider Internal Medicine; Emergency Provider Emergency Medicine; PCP Internal Medicine; Visit Provider Internal Medicine | DX: M25.561 Pain in right knee (principal); S80.10XA Contusion of unspecified lower leg, initial encounter; L03.90 Cellulitis, unspecified | CPT/HCPCS: 99223; 99232 ==

== ENCOUNTER 2025-04-22 11:11 | Inpatient (IN) | payer OTHER, SELFPAY ==
--- NOTE | ~2025-04-22 | XR_ITS ---
CLINICAL HISTORY: LE swelling Single view of the chest. COMPARISON: XR chest dated 01/03/25 at 00:30 EDT FINDINGS: Normal heart and mediastinal contours. No consolidation. No definite pleural effusion. No pneumothorax. Leftward curvature of the lower thoracic spine. No acute fracture. IMPRESSION: 1. No consolidation This document has been electronically signed by: Jluis Patrick MD on 04/22/2025 14:31:44
[2025-04-22 11:20] VITALS: BP 130/70; BP 155/67; PULSE 80; PULSE 84; RESP 18; TEMP 36.6; O2SAT 96; O2SAT 98; BMI 26.6
--- NOTE | 2025-04-22 11:42 | ED.LOWEXIN ---
HPI - Extremity Injury (Lower) General Chief Complaint: Extremity Injury, Lower Stated Complaint: CELLULITIS TO LEGS Time Seen by Provider: 04/22/25 11:26 Source: patient, EMS and old records reviewed Mode of arrival: EMS Limitations: no limitations History of Present Illness ED Provider: DR. 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 No fever, no chills, no SOB, no PND, no CP, nausea, vomiting. Related Data Home Medications ?Medication ?Instructions ?Recorded ?Confirmed albuterol sulfate 90 mcg/actuation 2 puff PO Q4H PRN wheezing 06/21/20 04/14/25 aerosol inhaler aspirin 81 mg chewable tablet 1 tab PO DAILY 06/21/20 04/14/25 carvedilol 25 mg tablet 1 tab PO BID 06/21/20 04/14/25 cholecalciferol (vitamin D3) 25 1 tab PO DAILY 06/21/20 04/14/25 mcg (1,000 unit) tablet (Vitamin D3) losartan 100 mg tablet 1 tab PO DAILY 06/21/20 04/14/25 rosuvastatin 5 mg tablet 1 tab PO BEDTIME 06/21/20 04/14/25 allopurinol 100 mg tablet 100 mg PO DAILY 03/26/23 04/14/25 amlodipine 10 mg tablet 10 mg PO DAILY 03/26/23 04/14/25 baclofen 10 mg tablet 10 mg PO BEDTIME PRN Muscle Spasm 03/26/23 04/14/25 clotrimazole 1 % topical cream 1 appl topical DAILY PRN Rash 03/26/23 04/14/25 dapagliflozin propanediol 10 mg 10 mg PO DAILY 03/26/23 04/14/25 tablet (Farxiga) fluvoxamine 100 mg tablet 200 mg PO BEDTIME 03/26/23 04/14/25 ketoconazole 2 % topical cream 1 appl topical DAILY PRN Rash 03/26/23 04/14/25 nystatin 100,000 unit/gram topical 1 appl topical BID PRN Rash 03/26/23 04/14/25 powder simethicone 125 mg chewable tablet 125 mg PO QIDWMHS PRN gas 03/26/23 04/14/25 (Gas Relief (simethicone)) torsemide 20 mg tablet 20 mg PO BID@0900,1600 03/26/23 04/14/25 acetaminophen 650 mg 1,300 mg PO Q8H PRN Pain 04/14/25 04/14/25 tablet,extended release (Tylenol Arthritis Pain) aripiprazole 2 mg tablet 2 mg PO DAILY 04/14/25 04/14/25 budesonide-formoterol HFA 160 2 inh inhalation BID 04/14/25 04/14/25 mcg-4.5 mcg/actuation aerosol inhaler (Symbicort) escitalopram oxalate 10 mg tablet 10 mg PO BEDTIME 04/14/25 04/14/25 famotidine 20 mg tablet 20 mg PO DAILY@1630 04/14/25 04/14/25 gabapentin 100 mg capsule 100 mg PO BID 04/14/25 04/14/25 hydrocortisone 1 % topical cream 1 appl topical BID PRN Rash 04/14/25 04/14/25 ipratropium bromide 21 mcg (0.03 21 mcg intranasal DAILY Runny Nose 04/14/25 04/14/25 %) nasal spray levothyroxine 150 mcg tablet 150 mcg PO DAILY@0600 04/14/25 04/14/25 Previous Rx's ?Medication ?Instructions ?Recorded bupropion HCl 300 mg 24 hr tablet, 1 tab PO DAILY #90 tabs 10/22/20 extended release hydroxyzine HCl 50 mg tablet 50 mg PO DAILY PRN anxiety #90 tabs 12/17/20 doxycycline monohydrate 100 mg 100 mg PO BID #12 caps 04/18/25 capsule Allergies Allergy/AdvReac Type Severity Reaction Status Date / Time lisinopril (LISINOPRIL) Allergy Intermediate RASH Verified 04/22/25 11:23 quetiapine (From SEROQUEL) Allergy Intermediate RASH Verified 04/22/25 11:23 sertraline (From ZOLOFT) Allergy Intermediate RASH, Verified 04/22/25 11:23 DIZZINESS loratadine (From CLARITIN) Allergy Mild UNKNOWN Verified 04/22/25 11:23 methimazole (From TAPAZOLE) Allergy Mild RASH Verified 04/22/25 11:23 potassium chloride Allergy Unknown Unknown Verified 04/22/25 11:23 propranolol (PROPRANOLOL) AdvReac Severe anergy Verified 04/22/25 11:23 Review of Systems Review of Systems: All other systems are reviewed and are negative Constitutional: Reports as per HPI and Reports no additional constitutional complaints Eyes: Reports as per HPI and Reports no additional eye complaints Reports system reviewed and no additional complaints, except as documented Cardiovascular: Reports as per HPI and Reports no additional cardiovascular complaints Respiratory: Reports as per HPI and Reports no additional respiratory complaints Gastrointestinal: Reports as per HPI and Reports no additional gastrointestinal complaints Genitourinary: Reports no additional female genitourinary complaints Musculoskeletal: Reports no additional musculoskeletal complaints Skin/Breast: Reports system reviewed and no additional complaints, except as docu Psychiatric: Reports no additional psychiatric complaints Endocrine: Reports no additional endocrine complaints Hematologic/Lymphatic: Reports no additional hematologic/lymphatic complaints Allergic/Immunologic: Reports no additional allergic/immunologic complaints Reports system reviewed and no additional complaints, except as documented and Reports Abnormal speech present [facility] Past Medical History Medical History PTSD (post-traumatic stress disorder) Recurrent major depression-severe Family History Family History Other Depression Social History Social History Household Members: None Household Members Other:: Lives with her cat Housing: Other Housing Other:: assisted housing Are you a primary nanny caregiver to a significant other at home: No Do you presently have visiting nurse or other home services: No Alcohol intake: never Patient Tobacco Use Status: Never used Tobacco Smoked in Last 30 Days: No Use of substances other than those prescribed or required for medical reasons: No Advance Directives: Yes Advance Directives on File: Yes Advance Directives Date on File: 03/26/23 service: No Physical Exam Vital Signs: Vital Signs: Last Vital Signs Temp 97.7 F 04/22/25 12:19 Pulse 82 04/22/25 12:19 Resp 13 04/22/25 12:19 BP 133/43 L 04/22/25 13:43 Pulse Ox 95 04/22/25 13:43 O2 Del Method Room Air 04/22/25 13:43 BMI result Body Mass Index 26.6 Vital signs have been reviewed and appear to be correct. Blood pressure elevated. Heart rate normal. Respiratory rate normal. Temperature normal. Oxygen saturation normal. Appearance: Alert. Oriented X3. No acute distress. Head: Normal external exam. Normocephalic. Atraumatic. No [place] signs noted. No raccoon eyes noted Eyes: PERRLA. EOMI. Conjunctiva and sclera normal. Eyelids normal. ENT: TM's Normal. Pharynx normal. Uvula midline. Moist mucous membranes. No trismus noted. No drooling noted. No muffled voice noted. Neck: Normal inspection. Neck supple. FROM. No adenopathy. Thyroid Normal. No meningeal signs. No neck mass noted. CVS: Normal heart rate and rhythm. Heart sound normal. No murmurs noted. Pulses normal throughout. Respiratory: No respiratory distress. Painless inspiration. Breath sounds normal. No wheezes/rales/rhonchi noted. Chest nontender. No accessory muscle usage noted or decreased air movement noted. Abdomen: Soft and nontender. Bowel sounds normal in all 4 quadrants. No distention noted. No organomegaly noted. No visible injury noted. Back: No CVA tenderness. Full range of motion noted. Skin: Skin warm and dry. Normal skin color. Normal skin turgor. No rashes/lesions/lacerations noted. Extremities: Bilateral +4 pitting edema, redness, hotness, to the left lower extremity. Neuro: Oriented X 3. Cranial nerve exam: II-XII are grossly intact No motor deficit. No sensory deficit. Reflexes normal. Course Reevaluation(s) Reevaluation #1: bilateral lymphedema, recent ultrasound showed no DVT, left lower extremity cellulitic change has been taking oral doxycycline for the past 4 days. 1. Lasix diuresis and Alfaro catheter for fluid management. 2. Switch antibiotic patient was given Zosyn and vancomycin. 3. No sepsis, no CHF. Time: 13:37 Medications Administered Generic Name Dose Route Start Last Admin Trade Name Freq PRN Reason Stop Dose Admin Vancomycin HCl 1,000 mg/ 535 mls @ 267.5 mls/hr 04/22/25 12:00 04/22/25 12:15 Vancomycin HCl 750 mg/ Sodium IV 04/22/25 13:59 267.5 mls/hr Chloride ONCE ONE Administration Discontinued Medications Generic Name Dose Route Start Last Admin Trade Name Freq PRN Reason Stop Dose Admin Furosemide 40 mg 04/22/25 11:36 04/22/25 12:03 Furosemide 40 Mg/4 Ml Vial IVPUSH 04/22/25 11:37 40 mg ONCE ONE Administration Protocol Piperacillin Sod/Tazobactam 50 mls @ 100 mls/hr 04/22/25 11:36 04/22/25 12:34 Sod 3.375 gm/ Sodium Chloride IV 04/22/25 12:05 Infused ONCE ONE Infusion Medical Decision Making Differential Diagnosis Differential Diagnoses: The differential diagnosis associated with the presentation includes ( Left lower extremity cellulitis, chronic lymphedema, electrolyte derangement, severe anemia, UTI, fluid management.) Admission/Observation Consideration of admission/observation: Escalation of care including admission/observation considered Consult Healthcare Provider Management of the patient was discussed with: Hospitalist ( Dr. Corbett) Lab Data MDM Lab Attestation statement: I reviewed the patient's lab results. 04/22/25 12:04 04/22/25 12:47 Labs: Lab Results 04/22/25 04/22/25 Range/Units 12:04 12:47 WBC 5.5 (4.8-10.8) X10*3/uL RBC 4.09 L (4.20-5.50) X10*6/uL Hgb 11.9 L (12.0-16.0) g/dl Hct 36.3 L (37.0-47.0) % MCV 88.8 (80.0-98.0) fL MCH 29.1 (27.0-33.0) pg MCHC 32.8 (31.0-35.0) g/dl RDW 13.7 (11.0-16.0) % Plt Count 260 (160-400) X10*3/uL MPV 10.6 (9.4-12.3) fL Immature Gran % (Auto) 0.7 H (0.0-0.4) % Neut % (Auto) 58.0 (45-73) % Lymph % (Auto) 22.2 (20-40) % [place] % (Auto) 15.1 H (2-11) % Eos % (Auto) 3.5 (0-4) % Baso % (Auto) 0.5 (0-2) % Lymph # (Auto) 1.2 (1.2-4.9) X10*3/uL [place] # (Auto) 0.8 (0.1-1.2) X10*3/uL Eos # (Auto) 0.2 (0.0-0.4) X10*3/uL Baso # (Auto) 0.0 (0.0-0.2) X10*3/uL Abs Immat Gran (auto) 0.04 H (0.00-0.03) X10*3/uL Absolute Neuts (auto) 3.2 (2.0-8.3) x10*3/uL Absolute Nucleated RBC 0.000 (0.0-0.012) X10*3/uL Nucleated RBC % (auto) 0.0 (0.0-0.2) /100WBC Sodium 142 (135-145) mmol/L Potassium 3.9 (3.3-5.1) mmol/L Chloride 106 (96-108) mmol/L Carbon Dioxide 25 (22-29) mmol/L Anion Gap 15 (12-20) BUN 56 H (9-16) mg/dL Creatinine 1.29 (0.5-1.4) mg/dL Estim Creat Clear Calc 35.4 Estimated GFR 40 Random Glucose 95 (60-115) mg/dL Lactic Acid 1.3 (0.5-2.0) mmol/L Calcium 10.2 (8.4-10.2) mg/dL Total Bilirubin 1.0 (0.0-1.0) mg/dL Direct Bilirubin 0.4 (0.0-0.5) mg/dL AST 37 H (5-31) U/L ALT 27 (0-31) U/L Alkaline Phosphatase 63 (39-117) U/L B-Natriuretic Peptide 46 (<100) pg/mL Total Protein 7.0 (6.5-8.0) g/dL Albumin 4.4 (3.5-5.0) g/dL Lipase 14 (8-78) U/L Urine Color Yellow Urine Appearance Clear Urine pH 5.5 (5.0-9.0) Ur Specific [place] 1.010 (1.005-1.025) Urine Protein Negative (Neg-Trace) mg/dL Urine Glucose (UA) 250 H (Negative) mg/dL Urine Ketones Negative (Negative) mg/dL Urine Blood Negative (Negative) Urine Nitrite Negative (Negative) Ur Leukocyte Esterase Negative (Negative) Independent Interpretation I performed an independent interpretation of an: Plain X-Ray ( chest: No pulmonary congestion) Radiology Impression Discussion of test interpretation with radiology: I have reviewed the radiologist's reading. Discharge Plan Discharge Clinical Impression: Cellulitis of leg, left, Lymphedema Patient Disposition: Admitted As Inpatient Print Language: Indonesian
--- OUTSIDE RECORDS SUMMARY | 2025-04-22 11:43 | XMS_ITS | Patient Health Record ---
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 Name Role Phone Raven Lyons Primary Care Provider Bibi Flores Unavailable [phone] Allergies Allergen (clinical drug ingredient) Drug/Non Drug Allergy documented on EMR Reaction Allergy Type Onset Date Status codeine codine (uncoded) rash Allergy Act vic lisinopril lesinopril (uncoded) Unknown Allergy Active Claritin rash Drug Allergy Active quetiapine SEROquel [...] hours; Duration: 14 days 09/30/2021 Active Nystatin 041902 UNIT/GM Externally Active Prazosin HCl 2 MG [...] Problem Acquired hammer toe of right foot (5036235030208685) Other hammer toe(s) (acquired), right foot (M20.41) Active confirmed Problem Acquired hallux valgus (61337184) Hallux valgus (acquired), left foot (M20.12) Active confirmed Problem Acquired hammer toe of left foot (0124430480587119) Other hammer toe(s) (acquired), left foot (M20.42) Active confirmed Problem Acquired hammer toe of left foot (9403914621404436) Hammer toe of left foot (M20.42) Active confirmed Problem Localized, primary osteoarthritis of the ankle and/or foot (646799325) Osteoarthritis of right ankle and foot (M19.071) Active confirmed Problem Localized, primary osteoarthritis of the ankle and/or foot (266522437) Osteoarthritis of left ankle and foot (M19.072) Active confirmed Problem Bilateral atherosclerosis of arteries of lower limbs (disorder) (75621687233373945 ) Atherosclerosis of artery of both lower extremities (I70.203) Active confirmed Problem Gouty arthritis of left foot (1838592551946926) Gouty arthritis of left foot (M10.9) Active confirmed Vital Signs Blood pressure diastolic 80 mm Hg 02/14/2025 Height 5ft3in in 02/14/2025 Blood pressure systolic 120 mm Hg 02/14/2025 Weight 243 lbs 02/14/2025 BMI 43.04 kg/m2 02/14/2025 Encounters Encounter Location Date Provider Diagnosis [facility] [address] [address] 07/08/2024 Bibi Siddiqi Tinea pedis of both feet B35.3 ; Tinea unguium B35.1 ; Pain in right toe(s) M79.674 ; Pain in left toe(s) M79.675 and Atherosclerosis of artery of both lower extremities I70.[address] [facility] [address] 12/01/2024 Bibi Perica Pain in right toe(s) M79.674 ; Tinea unguium B35.1 ; Pain in left toe(s) M79.675 and Atherosclerosis of artery of both lower extremities I70.[address] [facility] [address] 02/14/2025 Bibi Perica Pain in right toe(s) M79.674 ; Tinea unguium B35.1 ; Pain in left toe(s) M79.675 and Atherosclerosis of artery of both lower extremities I70.[address] [address] 04/26/2024 Bibi Perica [address] [address] 10/25/2024 Bibi Perica [address] [address] 11/17/2024 Bibi Perica Assessments Encounter Date Diagnosis [...] X ray : Foot, right 3V 09/03/2021 [id number] NAIL, 6 OR MORE 09/01/2018 [id number], [id number]/[id number], JOINT/BURSA 1 11/04/2020 Next Appt Details Provider Name:Bibi whitaker, 04/26/2025 03:00:00 PM, [address] [facility], [place], [address], Insurance Providers Payer Name Payer Address Payer Phone Subscriber Number Group Number Insured Name Patient Relationship to Insured Coverage Start Date Coverage End Date [facility] [employer] Claims [address] [place] [phone] [id number] Sharon Nugent Self - patient is the insured Medical (General) History Medical History History ICD Code High blood pressure Cholesterol Anxiety Depression Sciatica asthma Obesity Surgical History Surgery Date(Month/Year) basel Cell 2009 Hospitalization History Reason Date(Month/Year) ER- anxiety, dizzy 01/13
--- OUTSIDE RECORDS SUMMARY | 2025-04-22 11:43 | XMS_ITS | Encounter Summary ---
Author Organization [facility] Address [address] [place] [address] Phone Care Team Providers Care Mail Caller Name Role Phone Raven Lyons MD Primary Care Provider + Encounter Details Date Type Department Care Team (Late st Contact Info) Description 03/04/2023 Telephone [facility] [address] [place] [address] Jemima Gordillo Social History Tobacco [...] on filedocumented in this encounter Care Teams Mail Caller Relationship Specialty Start Date End Date Raven Lyons MD [address] [place] [address] PCP - General Dental Body Press Operator 06/03/23 documented as of this encounter
[2025-04-22] MEDS: Furosemide 40 MG/4 ML VIAL IVPUSH (12:03)
[2025-04-22] MEDS: vancomycin HCL 1,000 MG, vancomycin HCL 750 MG in 0.9 % Sodium Chloride 500 ML 267.5 MG IV (12:15)
[2025-04-22 12:16] LABS: MANUAL DIFF FLAG NO
[2025-04-22 12:17] LABS: Hematocrit 36.3 % (37.0-47.0); Hemoglobin 11.9 g/dl (12.0-16.0); Imm Gran Abs Auto 0.04 X10*3/uL (0.00-0.03); Imm Gran Pct Auto 0.7 % (0.0-0.4); Lymphocytes Absolute Auto 1.2 X10*3/uL (1.2-4.9); Mean Corpuscular HGB Conc 32.8 g/dl (31.0-35.0); Mean Corpuscular Hemoglobin 29.1 pg (27.0-33.0); Mean Corpuscular Volume 88.8 fL (80.0-98.0); NRBC Abs Auto 0.000 X10*3/uL (0.0-0.012); NRBC Pct Auto 0.0 /100WBC (0.0-0.2); Platelet Count 260 X10*3/uL (160-400); Red Blood Count 4.09 X10*6/uL (4.20-5.50); White Blood Count 5.5 X10*3/uL (4.8-10.8)
[2025-04-22 12:19] VITALS: BP 124/47; PULSE 82; RESP 13; TEMP 36.5; O2SAT 95
--- NOTE | 2025-04-22 12:20 | PC.NURSE ---
This Nurse placed 20G IV in right AC, pt tolerated well, VS updated pt medicated per MAR call rucker within reach.
[2025-04-22 12:37] LABS: B Type Natriuretic Peptide 46 pg/mL (<100)
--- NOTE | 2025-04-22 12:40 | PC.NURSE ---
This Nurse placed 16F Urinary Cath on PT, Pt tolerated well, before procedure this nurse assessed area, Vaginal and groin area, Red and tender to touch. PT stated she wipes front to back but hasn't done a good job cleaning because i am raw. 1000ml immediately after insertion.
[2025-04-22 12:54] LABS: Appearance Urine Clear; Glucose Urine UA 250 mg/dL (Negative); PH 5.5 (5.0-9.0); Specific Gravity - Urine 1.010 (1.005-1.025)
[2025-04-22 13:31] LABS: Alanine Aminotransferase 27 U/L (0-31); Albumin Level 4.4 g/dL (3.5-5.0); Alkaline Phosphatase 63 U/L (39-117); Anion Gap 15 (12-20); Aspartate Amino Transferase 37 U/L (5-31); Blood Urea Nitrogen 56 mg/dL (9-16); Calcium 10.2 mg/dL (8.4-10.2); Carbon Dioxide 25 mmol/L (22-29); Chloride 106 mmol/L (96-108); Creatinine Clr Calc Pharmacy 35.4; Estimated Glomerular Filt Rate 40; Lipase 14 U/L (8-78); Potassium 3.9 mmol/L (3.3-5.1); Sodium 142 mmol/L (135-145); Total Protein 7.0 g/dL (6.5-8.0)
[2025-04-22 13:43] VITALS: BP 133/43; O2SAT 95
--- NOTE | 2025-04-22 14:46 | PM.IMHP ---
History of Present Illness Date of Service: 04/22/25 Chief Complaint: swelling in legs, uti 75 years old woman with past medical history significant for morbid obesity, chronic lymphedema of the lower extremities, hypothyroidism, PTSD/depression and essential hypertension was recently admitted and discharged from the hospital after a fall that resulted on significant bruising in to the legs as well as swelling on top of her chronic lymphadema with a question of cellulitis to the left. At the time of discharge, she was advised to go to rehab but adamantly refused. She was discharged with VNA services at home and was seen by VNA and reportedly urine dip stick showed UTI, UA here is entirely negative for UTI. There is concern her legs are swollen and twice their usual, on my evaluation, the swelling and size of her legs are essentially uchanged, previous noted brusing is significantly down. See picture, there is some residual redness of legs and would not necessary catogorized them as cellulitis. There is also report she was not taking Doxycyline as prescribed. Last visit Today visit Review of Systems Review of Systems: Gen: no fever Resp: no sob, no cough CV: no chest, no SOFIA, no leg edema GI: No n/v, no abd pain Neuro: No confusion Yes all other systems are reviewed and are negative [facility] Medical History PTSD (post-traumatic stress disorder) Recurrent major depression-severe Family History Other Depression Social History Household Members: None Household Members Other:: Lives with her cat Housing: Apartment Housing Other:: [facility] Are you a primary palliative care nurse to a significant other at home: No Do you presently have visiting nurse or other home services: Yes Alcohol intake: never Patient Tobacco Use Status: Never used Tobacco Smoked in Last 30 Days: No Use of substances other than those prescribed or required for medical reasons: No Currently Displaying Signs/Symptoms of Drug Intoxication Withdrawal: No Have you been hit, kicked, punched, or otherwise hurt by someone within the past year? If so, by whom?: No Do you feel safe in your current relationship?: Yes Is there a partner from a previous relationship who is making you feel unsafe now?: No Are you made to feel afraid or neglected: No Advance Directives: Yes Advance Directives on File: Yes Advance Directives Date on File: 03/26/23 Do you have a plan to hurt others: No Plan Recently lost weight without trying: No Eating poorly because of decreased appetite: No Nutrition Risks: No Nutritional Risk Patient : No : No Poor oral hygiene: No service: No Meds Allergies Allergy/AdvReac Type Severity Reaction Status Date / Time lisinopril (LISINOPRIL) Allergy Intermediate RASH Verified 04/22/25 11:23 quetiapine (From SEROQUEL) Allergy Intermediate RASH Verified 04/22/25 11:23 sertraline (From ZOLOFT) Allergy Intermediate RASH, Verified 04/22/25 11:23 DIZZINESS loratadine (From CLARITIN) Allergy Mild UNKNOWN Verified 04/22/25 11:23 methimazole (From TAPAZOLE) Allergy Mild RASH Verified 04/22/25 11:23 potassium chloride Allergy Unknown Unknown Verified 04/22/25 11:23 propranolol (PROPRANOLOL) AdvReac Severe anergy Verified 04/22/25 11:23 Active Medications: Current Medications Acetaminophen (Acetaminophen 325 Mg Tablet) 650 mg PO Q6H PRN PRN Reason: Pain, Mild 1-3,fever,headache Calcium Carbonate (Calcium Carbonate 750 Mg Tab.Chew) 750 mg PO Q4H PRN PRN Reason: Heartburn Magnesium Hydroxide (Milk Of Magnesia 30 Ml Oral.Susp) 30 ml PO DAILY PRN PRN Reason: Constipation Melatonin (Melatonin 3 Mg Tablet) 6 mg PO BEDTIME PRN PRN Reason: Insomnia Sodium Chloride (0.9 % Sodium Chloride Flush 3 Ml Syringe) [facility] Medications ?Medication ?Instructions ?Recorded ?Confirmed ?Last Taken ?Type albuterol sulfate 90 mcg/actuation 2 puff PO Q4H PRN wheezing 06/21/20 04/22/25 Unknown History aerosol inhaler aspirin 81 mg chewable tablet 1 tab PO DAILY 06/21/20 04/22/25 04/14/25 History carvedilol 25 mg tablet 1 tab PO BID 06/21/20 04/22/25 04/14/25 History cholecalciferol (vitamin D3) 25 1 tab PO DAILY 06/21/20 04/22/2525 History mcg (1,000 unit) tablet (Vitamin D3) losartan 100 mg tablet 1 tab PO DAILY 06/21/20 04/22/25 04/14/25 History rosuvastatin 5 mg tablet 1 tab PO BEDTIME 06/21/20 04/22/25 04/13/25 History allopurinol 100 mg tablet 100 mg PO DAILY 03/26/23 04/22/25 04/14/25 History amlodipine 10 mg tablet 10 mg PO DAILY 03/26/23 04/22/25 04/14/25 History dapagliflozin propanediol 10 mg 10 mg PO DAILY 03/26/23 04/22/25 04/14/25 History tablet (Farxiga) fluvoxamine 100 mg tablet 100 mg PO BEDTIME 03/26/23 04/22/25 04/13/25 History ketoconazole 2 % topical cream 1 appl topical DAILY PRN Rash 03/26/23 04/22/25 03/25/23 09:00 History nystatin 100,000 unit/gram topical 1 appl topical BID PRN Rash 03/26/23 04/22/25 Unknown History powder simethicone 125 mg chewable tablet 125 mg PO QIDWMHS PRN gas 03/26/23 04/22/25 Unknown History (Gas Relief (simethicone)) torsemide 20 mg tablet 20 mg PO BID@0900,1500 03/26/23 04/22/25 04/14/25 History budesonide-formoterol HFA 160 2 inh inhalation BID PRN Shortness 04/14/25 04/22/25 04/14/25 History mcg-4.5 mcg/actuation aerosol Of Breath Or Wheezing inhaler (Symbicort) escitalopram oxalate 10 mg tablet 10 mg PO BEDTIME 04/14/25 04/22/25 04/13/25 History famotidine 20 mg tablet 20 mg PO DAILY@1630 04/14/25 04/22/25 04/14/25 History gabapentin 100 mg capsule 100 mg PO BID 04/14/25 04/22/25 04/14/25 History hydrocortisone 1 % topical cream 1 appl topical BID PRN Rash 04/14/25 04/22/25 Unknown History ipratropium bromide 21 mcg (0.03 21 mcg intranasal DAILY PRN Runny 04/14/25 04/22/25 Unknown History %) nasal spray Nose levothyroxine 150 mcg tablet 150 mcg PO DAILY@0600 04/14/25 04/22/25 04/14/25 History acetaminophen 500 mg tablet 1,000 mg PO Q6H PRN pain or fever 04/22/25 04/22/25 Unknown History baclofen 20 mg tablet 20 mg PO BEDTIME PRN Muscle Spasm 04/22/25 04/22/25 Unknown History Physical Exam Vital Signs and Narrative: Vital Signs: Last Vital Signs Temp 97.7 F 04/22/25 12:19 Pulse 82 04/22/25 12:19 Resp 13 04/22/25 12:19 BP 133/43 L 04/22/25 13:43 Pulse Ox 95 04/22/25 13:43 O2 Del Method Room Air 04/22/25 13:43 BMI result Body Mass Index 26.6 Results Labs 04/22/25 12:04 04/23/25 05:17 Labs: Laboratory Results - last 24 hr 04/22/25 04/22/25 12:04 12:47 MCV 88.8 MCH 29.1 MCHC 32.8 RDW 13.7 Plt Count 260 MPV 10.6 Immature Gran % (Auto) 0.7 H Neut % (Auto) 58.0 Lymph % (Auto) 22.2 [place] % (Auto) 15.1 H Eos % (Auto) 3.5 Baso % (Auto) 0.5 Lymph # (Auto) 1.2 [place] # (Auto) 0.8 Eos # (Auto) 0.2 Baso # (Auto) 0.0 Abs Immat Gran (auto) 0.04 H Absolute Neuts (auto) 3.2 Absolute Nucleated RBC 0.000 Nucleated RBC % (auto) 0.0 Anion Gap 15 Estim Creat Clear Calc 35.4 Estimated GFR 40 Random Glucose 95 Lactic Acid 1.3 Calcium 10.2 Total Bilirubin 1.0 Direct Bilirubin 0.4 AST 37 H ALT 27 Alkaline Phosphatase 63 B-Natriuretic Peptide 46 Total Protein 7.0 Albumin 4.4 Lipase 14 Urine Color Yellow Urine Appearance Clear Urine pH 5.5 Ur Specific [place] 1.010 Urine Protein Negative Urine Glucose (UA) 250 H Urine Ketones Negative Urine Blood Negative Urine Nitrite Negative Ur Leukocyte Esterase Negative Assessment and Plan (1) Lymphedema: Status: Acute Plan Sharon Nugent is a 75 y/o woman presents with: Bilateral lower extremity edema and extensive bruising in the setting of chronic lymphedema and recent fall, from the picture bruising is improving, it is unclear if cellulitis is present on or nt Previously had negative work for DVT would continue conservative management with leg elevation to complete course of Doxy PT to reassess, Normocytic anemia, stable Hypothyroidism. levothyroxine. HTN continue Coreg hold Norvasc and Lisinopril Mood disorder. Continue bupropion, aripiprazole Gout. Continue allopurinol. Morbid obesity. Weight loss advised DVT prophylaxis: Heparin Code status: Full Quality Stroke Does the patient have a stroke diagnosis?: No VTE Prior VTE?: No VTE Risk Level:: Medical - moderate - high VTE Device Contraindication: Treatment Not Indicated VTE Drug Contraindication: N/A - Med Ordered
[2025-04-22 15:02] VITALS: BP 119/44; PULSE 86; RESP 20; TEMP 36; O2SAT 97
--- NOTE | 2025-04-22 15:34 | PHA.MEDREC ---
Addendum entered by Manoj Howard RPh 04/22/25 15:56: Reviewed by [facility]. Original Note: Pharmacy Consult ? Medication Reconciliation Pharmacy has completed the medication reconciliation. Spoke with patient to confirm. She had a list from home. She takes 1 tab of fluvoxamine daily, The abilify got discontinued, last dose on Thursday. Symbicort and ipatropium are prn. The rest of her medications were the same as previous discharge. She took her medications this morning. Last took doxycycline yesterday (both doses).
--- NOTE | 2025-04-22 15:37 | PC.NURSE ---
Pt Repositioned, call rucker within reach.
[2025-04-22] MEDS: 0.9 % Sodium Chloride Flush 3 ML SYRINGE IVFLUSH ×2 (17:01→22:15)
[2025-04-22 19:40] VITALS: BP 106/51; PULSE 84; RESP 20; TEMP 36.5; O2SAT 94
[2025-04-22 19:43] VITALS: BMI 44.4
[2025-04-22 23:47] VITALS: BP 106/53; PULSE 87; RESP 18; TEMP 36.8; O2SAT 92
[2025-04-23] VITALS (9 sets, daily range): BP systolic 101–127; BP diastolic 49–59; PULSE 68–84; RESP 16–18; TEMP 36.4–37.4; O2SAT 93–97
[2025-04-23 06:24] LABS: Alanine Aminotransferase 19 U/L (0-31); Albumin Level 3.8 g/dL (3.5-5.0); Alkaline Phosphatase 56 U/L (39-117); Anion Gap 12 (12-20); Aspartate Amino Transferase 30 U/L (5-31); Blood Urea Nitrogen 44 mg/dL (9-16); Calcium 9.9 mg/dL (8.4-10.2); Carbon Dioxide 29 mmol/L (22-29); Chloride 108 mmol/L (96-108); Creatinine Clr Calc Pharmacy 53.5; Estimated Glomerular Filt Rate 48; Potassium 3.7 mmol/L (3.3-5.1); Sodium 145 mmol/L (135-145); Total Protein 6.1 g/dL (6.5-8.0)
--- NOTE | 2025-04-23 08:32 | P.PNIM_ITS ---
Subjective Subjective Date of Service: 04/23/25 Interval History: legs remains swollen but better and look less red Physical Exam 2 Exam: Exam: General: AO X 3, no acute distress Resp: CTA bilateral CVS: S1,S2,RRR GI: +BS, NT, no distention Skin: No Neuro: motor grossly intact Psych: appropriate affect Vital Signs: Vital Signs: Last Vital Signs Temp 99.3 F 04/23/25 07:23 Pulse 78 04/23/25 07:23 Resp 16 04/23/25 07:23 BP 107/50 L 04/23/25 07:23 Pulse Ox 93 04/23/25 07:23 O2 Del Method Room Air 04/23/25 07:23 BMI result Body Mass Index 44.4 Objective Data Active Medications Acetaminophen (Acetaminophen 325 Mg Tablet) 650 mg PO Q6H PRN PRN Reason: Pain, Mild 1-3,fever,headache Last Admin: 04/22/25 20:20 Dose: 650 mg Documented By: JAMARI Comments: per pt request, MD cordova to give earlier Acetaminophen (Acetaminophen 325 Mg Tablet) 975 mg PO Q6H PRN PRN Reason: pain or fever Albuterol Sulfate (Albuterol Sulfate 90 Mcg 8 Gm Inhaler) 2 puff INHALE Q4H PRN PRN Reason: Wheezing Allopurinol (Allopurinol 100 Mg Tablet) 100 mg PO DAILY [facility] Aspirin (Aspirin 81 Mg Tab.Chew) 81 mg PO DAILY [facility] Atorvastatin Calcium (Atorvastatin Calcium 20 Mg Tablet) 20 mg PO BEDTIME [facility] Last Admin: 04/22/25 20:19 Dose: 20 mg Documented By: JAMARI Baclofen (Baclofen 20 Mg Tablet) 20 mg PO BEDTIME PRN PRN Reason: Muscle Spasm Last Admin: 04/22/25 22:14 Dose: 20 mg Documented By: JAMARI Bupropion HCl (Bupropion Hcl Xl 300 Mg Tab.Er.24h) 300 mg PO DAILY [facility] Calcium Carbonate (Calcium Carbonate 750 Mg Tab.Chew) 750 mg PO Q4H PRN PRN Reason: Heartburn Carvedilol (Carvedilol 25 Mg Tablet) 25 mg PO BID [facility]; Protocol Last Admin: 04/22/25 20:20 Dose: 25 mg Documented By: JAMARI Doxycycline Monohydrate (Doxycycline Monohydrate 100 Mg Capsule) 100 mg PO BID [facility] Last Admin: 04/22/25 20:20 Dose: 100 mg Documented By: JAMARI Empagliflozin (Empagliflozin 10 Mg Tablet) 10 mg PO DAILY [facility] Escitalopram Oxalate (Escitalopram Oxalate 10 Mg Tablet) 10 mg PO BEDTIME [facility] Last Admin: 04/22/25 20:19 Dose: 10 mg Documented By: JAMARI Famotidine (Famotidine 20 Mg Tablet) 20 mg PO DAILY@1630 [facility] Fluticasone/Vilanterol (Fluticasone/Vilanterol 200/25 Blst.W.Dev) 1 puff INHALE DAILY PRN PRN Reason: Shortness Of Breath Or Wheezing Fluvoxamine Maleate (Fluvoxamine Maleate 50 Mg Tablet) 100 mg PO BEDTIME [facility] Last Admin: 04/22/25 20:19 Dose: 100 mg Documented By: JAMARI Gabapentin (Gabapentin 100 Mg Capsule) 100 mg PO BID [facility] Last Admin: 04/22/25 20:19 Dose: 100 mg Documented By: JAMARI Heparin Sodium (Porcine) (Heparin Sodium,Porcine 5,000 Unit/Ml Vial) 5,000 unit SUBCUT Q12H [facility] Last Admin: 04/23/25 06:03 Dose: 5,000 unit Documented By: JAMARI Hydrocortisone (Hydrocortisone 1 % Cream 28.35 Gm Tube) 1 appl TOPICAL BID PRN; Protocol PRN Reason: Rash Hydroxyzine HCl (Hydroxyzine Hcl 50 Mg Tablet) 50 mg PO DAILY PRN PRN Reason: Anxiety Ipratropium [place] (Ipratropium [place] José Maneul 0.03 % 30 Ml [place]) 1 spray NOSTRIL-B DAILY PRN PRN Reason: Runny Nose Levothyroxine Sodium (Levothyroxine Sodium 150 Mcg Tablet) 150 mcg PO DAILY@0600 [facility] Last Admin: 04/23/25 06:02 Dose: 150 mcg Documented By: JAMARI Magnesium Hydroxide (Milk Of Magnesia 30 Ml Oral.Susp) 30 ml PO DAILY PRN PRN Reason: Constipation Melatonin (Melatonin 3 Mg Tablet) 6 mg PO BEDTIME PRN PRN Reason: Insomnia Nystatin (Nystatin Powder 15 Gm Bottle) 1 appl TOPICAL BID PRN; Protocol PRN Reason: Rash Nystatin (Nystatin Powder 15 Gm Bottle) 1 appl TOPICAL BID [facility]; Protocol Last Admin: 04/22/25 22:09 Dose: 1 appl Documented By: JAMARI Sodium Chloride (0.9 % Sodium Chloride Flush 3 Ml Syringe) 3 ml IVFLUSH QSHIFT [facility] Last Admin: 04/22/25 22:15 Dose: 3 ml Documented By: JAMARI Torsemide (Torsemide 20 Mg Tablet) 20 mg PO BID@0900,1500 [facility]; Protocol Vitamin D (Cholecalciferol (Vitamin D3) 25 Mcg Tablet) 25 mcg PO DAILY [facility] Labs 04/22/25 12:04 04/23/25 05:17 Labs: Laboratory Results - last 24 hr 04/22/25 04/22/25 04/23/25 12:04 12:47 05:17 MCV 88.8 MCH 29.1 MCHC 32.8 RDW 13.7 Plt Count 260 MPV 10.6 Immature Gran % (Auto) 0.7 H Neut % (Auto) 58.0 Lymph % (Auto) 22.2 [place] % (Auto) 15.1 H Eos % (Auto) 3.5 Baso % (Auto) 0.5 Lymph # (Auto) 1.2 [place] # (Auto) 0.8 Eos # (Auto) 0.2 Baso # (Auto) 0.0 Abs Immat Gran (auto) 0.04 H Absolute Neuts (auto) 3.2 Absolute Nucleated RBC 0.000 Nucleated RBC % (auto) 0.0 Anion Gap 15 12 Estim Creat Clear Calc 35.4 53.5 Estimated GFR 40 48 Random Glucose 95 114 Lactic Acid 1.3 Calcium 10.2 9.9 Total Bilirubin 1.0 0.7 Direct Bilirubin 0.4 AST 37 H 30 ALT 27 19 Alkaline Phosphatase 63 56 Total Creatine Kinase 151 H B-Natriuretic Peptide 46 Total Protein 7.0 6.1 L Albumin 4.4 3.8 Lipase 14 Urine Color Yellow Urine Appearance Clear Urine pH 5.5 Ur Specific [place] 1.010 Urine Protein Negative Urine Glucose (UA) 250 H Urine Ketones Negative Urine Blood Negative Urine Nitrite Negative Ur Leukocyte Esterase Negative Assessment and Plan (1) Traumatic ecchymosis of multiple sites of lower extremity: Status: Acute Plan Sharon Nugent is a 75 y/o woman presents with: Bilateral lower extremity edema and extensive bruising in the setting of chronic lymphedema and recent fall, from the picture bruising is improving, it is unclear if cellulitis is present on or nt Previously had negative work for DVT would continue conservative management with leg elevation to complete course of Doxy, presently no evidence cellulitis see pic Diuretics to help reduce fluid in legs PT to reassess, Normocytic anemia, stable Hypothyroidism. levothyroxine. HTN continue Coreg hold Norvasc and Lisinopril Mood disorder. Continue bupropion, aripiprazole Gout. Continue allopurinol. Morbid obesity. Weight loss advised DVT prophylaxis: Heparin Code status: Full Quality Stroke Does the patient have a stroke diagnosis?: No VTE Prior VTE?: No VTE Risk Level:: Medical - moderate - high VTE Device Contraindication: Treatment Not Indicated VTE Drug Contraindication: N/A - Med Ordered
[2025-04-23] MEDS: buPROPion HCl XL 300 MG TAB.ER.24H PO (08:49)
--- NOTE | 2025-04-23 15:17 | MHC.CM.PN ---
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
[2025-04-23] MEDS: 0.9 % Sodium Chloride Flush 3 ML SYRINGE IVFLUSH ×2 (16:20→20:54)
--- NOTE | 2025-04-23 20:30 | PC.NURSE ---
pt reporting pain at 9/10 to BLE, described as throbbing and some burning to the back of her legs, Dr. Neff made aware of high pain level, new once order placed. Will continue to reassess.
--- NOTE | 2025-04-24 01:00 | PC.NURSE ---
Pt had costa taken out on 04/23 at 1535, due to void by 2135. Pt has voided multiple times throughout night, each time less and less urine output. Pt voided about 120ml around 0100, PRV bladder scan was 415ml, Dr. Neff made aware, and orders were to continue to monitor. 0436: Pt attempted to void, with almost no output, about 10ml, PRV bladder scan was 662ml, Dr. Neff made aware new orders placed, per voiding protocol straight catheter placed. Output 600ml, PRV bladder scan 35ml. Pt tolerated well, and feels much relief. Pt is due to void by 1120 on 04/23.
[2025-04-24 03:46] VITALS: PULSE 65; RESP 18; TEMP 36.3; O2SAT 97
[2025-04-24 07:33] VITALS: BP 111/53; PULSE 70; RESP 15; TEMP 36.2; O2SAT 92
[2025-04-24] MEDS: buPROPion HCl XL 300 MG TAB.ER.24H PO (07:57)
[2025-04-24] MEDS: 0.9 % Sodium Chloride Flush 3 ML SYRINGE IVFLUSH (07:58)
--- NOTE | 2025-04-24 08:27 | PM.DS ---
DS: Providers Provider Date of Service: 04/24/25 Date of admission: 04/22/25 17:01 Date of discharge: 04/24/25 Primary care physician: Raven Lyons MD Consults: 04/24/25 00:22 Consult to Wound Care Routine Reason for consultation: fungal infection to groin/abd fold, redness to LLE, bruising to BUE/BLE DS: Diagnosis Discharge Diagnosis (1) Traumatic ecchymosis of multiple sites of lower extremity: Status: Acute DS: Summary Hospital Course Hospital Course: admission hpi Chief Complaint: swelling in legs, uti 75 years old woman with past medical history significant for morbid obesity, chronic lymphedema of the lower extremities, hypothyroidism, PTSD/depression and essential hypertension was recently admitted and discharged from the hospital after a fall that resulted on significant bruising in to the legs as well as swelling on top of her chronic lymphadema with a question of cellulitis to the left. At the time of discharge, she was advised to go to rehab but adamantly refused. She was discharged with VNA services at home and was seen by VNA and reportedly urine dip stick showed UTI, UA here is entirely negative for UTI. There is concern her legs are swollen and twice their usual, on my evaluation, the swelling and size of her legs are essentially uchanged, previous noted brusing is significantly down. See picture, there is some residual redness of legs and would not necessary catogorized them as cellulitis. There is also report she was not taking Doxycyline as prescribed. hospital course: Essentially this patient was recently admitted as stated above, She was advised to go to rehab and refused and went home with VNA, she comes predicatable for failing as she lives alone with limited mobility, she had persistent swelling and bruises but better, there was also question of uti from VNA from distic urine however UA in the hospital was entirely clean. She is advised yet again to go to short term rehab, she initially agreed but is now is saying No and will be discharge against advised to go to rehab Time Attestation Discharge Coordination Time (in mins): 40 Quality: Safe Use of Opioids Does Pt have an Active Cancer Diagnosis on the Problem List?: No Quality: Stroke Does the patient have a stroke diagnosis?: No Physical Exam Vital Signs: Vital Signs: Last Vital Signs Temp 97.2 F 04/24/25 07:33 Pulse 70 04/24/25 07:33 Resp 15 04/24/25 07:33 BP 111/53 L 04/24/25 07:33 Pulse Ox 92 04/24/25 07:33 O2 Del Method Room Air 04/24/25 07:33 BMI result Body Mass Index 44.4 DS: Data Data Completed and Pending Labs on day of discharge: Preliminary micro results at discharge 04/22/25 12:04 Blood Culture - Preliminary Blood - Venous No growth after 24 hours. 04/22/25 12:04 Blood Culture - Preliminary Blood - Venous No growth after 24 hours. Discharge Plan Discharge Anticipated Discharge Date/Time: 04/24/25 08:28 Patient Disposition: Home Health Service Discharge Diagnosis: Swelling in legs [facility]errals: [facility] [Other] - 1 Week Raven Lyons MD [Primary Care Provider, Internal Medicine] - 1 Week Discharge Medications: Continued carvedilol 25 mg tablet 1 tab PO BID aspirin 81 mg tablet,chewable 1 tab PO DAILY albuterol sulfate 90 mcg/actuation HFA aerosol inhaler 2 puff PO Q4H PRN (Reason: wheezing) losartan 100 mg tablet 1 tab PO DAILY rosuvastatin 5 mg tablet 1 tab PO BEDTIME cholecalciferol (vitamin D3) [Vitamin D3] 25 mcg (1,000 unit) tablet 1 tab PO DAILY bupropion HCl 300 mg tablet extended release 24 hr 1 tab PO DAILY Qty: 90 0RF hydroxyzine HCl 50 mg tablet 50 mg PO DAILY PRN (Reason: anxiety) Qty: 90 0RF fluvoxamine 100 mg tablet 100 mg PO BEDTIME torsemide 20 mg tablet 20 mg PO BID@0900,1500 allopurinol 100 mg tablet 100 mg PO DAILY amlodipine 10 mg tablet 10 mg PO DAILY simethicone [Gas Relief (simethicone)] 125 mg tablet,chewable 125 mg PO QIDWMHS PRN (Reason: gas) nystatin 100,000 unit/gram powder 1 appl topical BID PRN (Reason: Rash) Rx Instructions: apply to affected areas under breast or leg folds ketoconazole 2 % cream 1 appl topical DAILY PRN (Reason: Rash) dapagliflozin propanediol [Farxiga] 10 mg tablet 10 mg PO DAILY budesonide-formoterol [Symbicort] 160-4.5 mcg/actuation HFA aerosol inhaler 2 inh inhalation BID PRN (Reason: Shortness Of Breath Or Wheezing) famotidine 20 mg tablet 20 mg PO DAILY@1630 levothyroxine 150 mcg tablet 150 mcg PO DAILY@0600 gabapentin 100 mg capsule 100 mg PO BID ipratropium bromide 21 mcg (0.03 %) spray,non-aerosol 21 mcg intranasal DAILY PRN (Reason: Runny Nose) escitalopram oxalate 10 mg tablet 10 mg PO BEDTIME hydrocortisone 1 % Cream 1 appl TOPICAL BID PRN (Reason: Rash) doxycycline monohydrate 100 mg Capsule 100 mg PO BID Qty: 12 0RF acetaminophen 500 mg Tablet 1,000 mg PO Q6H PRN (Reason: pain or fever) baclofen 20 mg tablet 20 mg PO BEDTIME PRN (Reason: Muscle Spasm) Discharge Orders: Discharge Order (Routine); Ordered 04/24/25 Ordered By: Estuardo Corbett Diet: Advance to usual diet Activity on Discharge: As tolerated Stand Alone Forms: Patient Portal Discharge page Print Language: [place] Care Plan Goals: redcovery from fall leg edema Health Concerns: recent fall, limitte mobility, bruises on legs Plan of Treatment: You are declining rehab a second time despite physical therapy advise and you understand you are likely to come back to the hospial Assessment: See above Discharge Date/Time: 04/24/25 13:05
--- NOTE | 2025-04-24 10:23 | MHC.CM.PN ---
CM MET WITH PT TO DISCUSS DCP SHE REPORTS SHE IS NOT GOING TO STR SHE WILL RETURN HOME WITH HER VNA FOR SN AND PT PT WILL DC HOME TODAY WITH RESUMPTION OF [facility] VNA AND HOUSEKEEPING WORKER SERVICES
--- NOTE | 2025-04-24 10:46 | MHC.CM.PN ---
[facility] notified of dc
[2025-04-24 12:00] VITALS: BP 102/57; PULSE 65; RESP 12; TEMP 36.1; O2SAT 94
--- NOTE | 2025-04-24 12:16 | PC.NURSE ---
Pt ambulating to BR with walker and standby assist. Denies pain. Evaluated by PT. Voided 3 times this am in BR without difficulty and also had 2 large BMs.
== END 2025-04-24 13:05 | disposition home health service (06) | DRG 607 ==
LOC: HO.ED 13:42 → HO.EDOVER 17:08 → HO.S3 18:11
PROVIDERS: Admitting Provider Internal Medicine; Emergency Provider Emergency Medicine; PCP Internal Medicine; Visit Provider Internal Medicine
DX: I89.0 Lymphedema, not elsewhere classified (principal); Z68.41 Body mass index [BMI] 40.0-44.9, adult; E03.9 Hypothyroidism, unspecified; F43.10 Post-traumatic stress disorder, unspecified; I10 Essential (primary) hypertension; D64.9 Anemia, unspecified; M10.9 Gout, unspecified; R29.6 Repeated falls; Z91.81 History of falling; E66.01 Morbid (severe) obesity due to excess calories; Z71.3 Dietary counseling and surveillance; Z79.82 Long term (current) use of aspirin; Z79.899 Other long term (current) drug therapy
CPT/HCPCS: 36415; 71045; 80048; 80053; 80076; 81003; 82550; 83605; 83690; 83880; 85025; 87040; 97162; 99285; J1644; J1938; J2543; J3374

== ENCOUNTER → 2025-04-22 11:38 | Outpatient (BNV) | payer OTHER, SELFPAY | PROVIDERS: Emergency Provider Emergency Medicine; PCP Internal Medicine; Visit Provider Radiology Diagnostic Radiology | DX: R22.43 Localized swelling, mass and lump, lower limb, bilateral (principal) | CPT/HCPCS: 71045 ==

== ENCOUNTER → 2025-04-22 17:01 | Outpatient (BNV) | payer OTHER, SELFPAY | PROVIDERS: Admitting Provider Internal Medicine; Emergency Provider Emergency Medicine; PCP Internal Medicine; Visit Provider Internal Medicine | DX: I89.0 Lymphedema, not elsewhere classified (principal); S80.10XA Contusion of unspecified lower leg, initial encounter | CPT/HCPCS: 99223; 99232; 99239 ==

== ENCOUNTER 2025-08-28 08:35 | Inpatient (IN) | payer OTHER, SELFPAY ==
--- NOTE | ~2025-08-28 | CT_ITS ---
EXAMINATION: CT HEAD WITHOUT IV CONTRAST HISTORY: ams. TECHNIQUE: Unenhanced helical CT of the head was performed per standard departmental protocol. Coronal and sagittal reformats of the head were also evaluated. One or more of the following techniques was used for dose reduction: Automated exposure control, adjustment of the mA and/or kV according to patient size, use of iterative reconstruction technique. DLP: 547 mGy-cm COMPARISON: Comparison is made with the prior examination dated 04/11/2025. FINDINGS: BRAIN: There is mild prominence of the ventricular system and cortical sulci, consistent with atrophy. Scattered periventricular and subcortical white matter hypodensities are noted which are nonspecific, but often seen in the setting of small vessel ischemic disease. There is no mass effect or midline shift. No intra- or extra-axial fluid collections are identified. SINUSES: The visualized paranasal sinuses are clear. The mastoid air cells and middle ear cavities are well pneumatized. ORBITS: The visualized orbits are unremarkable. BONES/SOFT TISSUES: The extracranial soft tissues are unremarkable. The calvarium is intact. No suspicious lytic or sclerotic lesions. CT/CT head/brain wo IV con IMPRESSION: No acute intracranial abnormality. Electronically signed by: Giles Caballero MD 08/28/2025 10:00 AM [facility] [place] [place]
--- NOTE | ~2025-08-28 | XR_ITS ---
EXAMINATION: XR CHEST CLINICAL INFORMATION: ams COMPARISON: April 22, 2025 TECHNIQUE: Portable AP upright view of the chest was obtained. FINDINGS: Prominence of the interstitial lung markings. No consolidation, pleural effusion or pneumothorax. No hyperinflation. Cardiomediastinal silhouette size is normal. Calcified plaque thoracic aorta. Multilevel thoracolumbar spondylosis. No free air beneath the diaphragm. XR/XR chest 1V IMPRESSION: Chronic interstitial lung disease. Electronically signed by: Delfino Sharma MD 08/28/2025 09:27 AM [facility]
[2025-08-28 08:39] VITALS: BP 150/73; BP 168/101; PULSE 99; RESP 22; TEMP 37.3; O2SAT 93; BMI 38.4
--- NOTE | 2025-08-28 08:44 | ECG_ITS ---
Test Reason : ams Blood Pressure : */* mmHG Vent. Rate : 92 BPM Atrial Rate : 92 BPM P-R Int : 204 ms QRS Dur : 94 ms QT Int : 358 ms P-R-T Axes : 59 1 39 degrees QTcB Int : 442 ms Normal sinus rhythm Septal infarct , age undetermined Abnormal ECG When compared with ECG of 03-Jan-2025 05:12, No significant change was found Referred By: Inga Harrison Electronically Signed By: JHON BOSE MD
--- NOTE | 2025-08-28 08:55 | MHC.STROKE ---
Notified of incoming stroke alert by ED staff. Upon arrival to ED, charge nurse reports that the stroke alert was called off by ED provider.
[2025-08-28 09:01] LABS: MANUAL DIFF FLAG NO
--- NOTE | 2025-08-28 09:02 | ED.GENADULT ---
HPI - General Adult General Chief complaint: Altered Mental Status Stated complaint: STROKE ALERT,WORD TROUBLE,+THINNER Time Seen by Provider: 08/28/25 08:44 Source: patient Mode of arrival: ambulatory Limitations: no limitations (encephalopathy) History of Present Illness ED Provider: Dr. Harrison HPI narrative: 75-year-old female presented hospital today for altered mentation. Was found wandering her hallway of her apartment today. Patient is confused. According to EMS the patient is well known to them. The patient is alert and orientated at baseline. No unilateral weakness. Appears to be altered. Unknown last known normal time. The patient is on Eliquis for blood thinner. Related Data Home Medications ?Medication ?Instructions ?Recorded ?Confirmed albuterol sulfate 90 mcg/actuation 2 puff PO Q4H PRN wheezing 06/21/20 04/22/25 aerosol inhaler aspirin 81 mg chewable tablet 1 tab PO DAILY 06/21/20 04/22/25 carvedilol 25 mg tablet 1 tab PO BID 06/21/20 04/22/25 cholecalciferol (vitamin D3) 25 1 tab PO DAILY 06/21/20 04/22/25 mcg (1,000 unit) tablet (Vitamin D3) losartan 100 mg tablet 1 tab PO DAILY 06/21/20 04/22/25 rosuvastatin 5 mg tablet 1 tab PO BEDTIME 06/21/20 04/22/25 allopurinol 100 mg tablet 100 mg PO DAILY 03/26/23 04/22/25 amlodipine 10 mg tablet 10 mg PO DAILY 03/26/23 04/22/25 dapagliflozin propanediol 10 mg 10 mg PO DAILY 03/26/23 04/22/25 tablet (Farxiga) fluvoxamine 100 mg tablet 100 mg PO BEDTIME 03/26/23 04/22/25 ketoconazole 2 % topical cream 1 appl topical DAILY PRN Rash 03/26/23 04/22/25 nystatin 100,000 unit/gram topical 1 appl topical BID PRN Rash 03/26/23 04/22/25 powder simethicone 125 mg chewable tablet 125 mg PO QIDWMHS PRN gas 03/26/23 04/22/25 (Gas Relief (simethicone)) torsemide 20 mg tablet 20 mg PO BID@0900,1500 03/26/23 04/22/25 budesonide-formoterol HFA 160 2 inh inhalation BID PRN Shortness 04/14/25 04/22/25 mcg-4.5 mcg/actuation aerosol Of Breath Or Wheezing inhaler (Symbicort) escitalopram oxalate 10 mg tablet 10 mg PO BEDTIME 04/14/25 04/22/25 famotidine 20 mg tablet 20 mg PO DAILY@1630 04/14/25 04/22/25 gabapentin 100 mg capsule 100 mg PO BID 04/14/25 04/22/25 hydrocortisone 1 % topical cream 1 appl topical BID PRN Rash 04/14/25 04/22/25 ipratropium bromide 21 mcg (0.03 21 mcg intranasal DAILY PRN Runny 04/14/25 04/22/25 %) nasal spray Nose levothyroxine 150 mcg tablet 150 mcg PO DAILY@0600 04/14/25 04/22/25 acetaminophen 500 mg tablet 1,000 mg PO Q6H PRN pain or fever 04/22/25 04/22/25 baclofen 20 mg tablet 20 mg PO BEDTIME PRN Muscle Spasm 04/22/25 04/22/25 Previous Rx's ?Medication ?Instructions ?Recorded bupropion HCl 300 mg 24 hr tablet, 1 tab PO DAILY #90 tabs 10/22/20 extended release hydroxyzine HCl 50 mg tablet 50 mg PO DAILY PRN anxiety #90 tabs 12/17/20 doxycycline monohydrate 100 mg 100 mg PO BID #12 caps 04/18/25 capsule Allergies Allergy/AdvReac Type Severity Reaction Status Date / Time lisinopril (LISINOPRIL) Allergy Intermediate RASH Verified 08/28/25 08:48 quetiapine (From SEROQUEL) Allergy Intermediate RASH Verified 08/28/25 08:48 sertraline (From ZOLOFT) Allergy Intermediate RASH, Verified 08/28/25 08:48 DIZZINESS loratadine (From CLARITIN) Allergy Mild UNKNOWN Verified 08/28/25 08:48 methimazole (From TAPAZOLE) Allergy Mild RASH Verified 08/28/25 08:48 potassium chloride Allergy Unknown Unknown Verified 08/28/25 08:48 propranolol (PROPRANOLOL) AdvReac Severe anergy Verified 08/28/25 08:48 Review of Systems Review of Systems: Pertinent review of systems as mentioned in HPI. All other system otherwise negative. [facility] Past Medical History [facility] Narrative: Medical history as mentioned in HPI Medical History PTSD (post-traumatic stress disorder) Recurrent major depression-severe Family History Family History Other Depression Social History Social History Household Members: None Household Members Other:: Lives with her cat Housing: Apartment Housing Other:: long term housing Are you a primary career law clerk to a significant other at home: No Do you presently have visiting nurse or other home services: Yes Alcohol intake: never Patient Tobacco Use Status: Never used Tobacco Smoked in Last 30 Days: No Use of substances other than those prescribed or required for medical reasons: No Advance Directives: Yes Advance Directives on File: Yes Advance Directives Date on File: 03/26/23 service: No Physical Exam ED Exam Exam: General: Appears encephalopathic Head: Normacephalic, atraumatic ENT: oral mucosa moist, neck supple, no tracheal deviation Cardiovascular: regular rate, regular rhythm, no murmurs, rubbing, gallops Respiratory: CTAB, no wheeze, rales, rhonchi Gastrointestinal: Soft, non distended, non tender, non guarding Extremities: Pitting edema bilateral lower extremities Neurological: Awake and alert, no facial droop noted, good strength in upper and lower extremity no sign of ataxia Skin: Warm and dry Psychiatric: Appears encephalopathic Vital Signs: Vital Signs - 24 hr 08/28/25 08:39 08/28/25 09:37 Temperature 99.1 F Pulse Rate 99 92 Respiratory Rate 22 H 18 Blood Pressure 150/73 H 152/70 H Pulse Oximetry 93 96 Oxygen Delivery Method Room Air Room Air BMI result Body Mass Index 38.4 Medications Administered Discontinued Medications Generic Name Dose Route Start Last Admin Trade Name Freq PRN Reason Stop Dose Admin Sodium Chloride 500 mls @ 500 mls/hr 08/28/25 09:00 08/28/25 11:23 Ns IV 08/28/25 09:59 Infused .Q1H LILLIANA Infusion Ceftriaxone Sodium 1 gm/ 50 mls @ 100 mls/hr 08/28/25 10:18 08/28/25 11:23 Sodium Chloride IV 08/28/25 10:47 Infused ONCE ONE Infusion Medical Decision Making Medical Decision Making [facility] Narrative: 75-year-old female history of hypertension, hypothyroidism presented hospital today for evaluation of altered mentation. Patient may have underlying UTI that is called today and altered mentation. I do not think this is a stroke on evaluation. No unilateralizing lesions on exam. Good strength in upper and lower extremity. We will obtain a broad medical workup for the patient. Patient is not TNK candidate due reported blood thinner usage and unknown last known normal time. CBC CMP VBG TSH ammonia level will be obtained. CT head will be obtained. A screening UA and chest x-ray will be obtained as well. I do not think patient has sepsis however we will screen for sepsis. CBC is unremarkable, patient's VBG did not show any signs of hypercapnia, TSH is normal, lactic acid isn't elevated. Ammonia level is normal. Patient's UA did show signs of UTI. We will send urine for culture. We will plan to admit patient to the hospital for encephalopathy secondary to UTI. CT head is negative. Chest x-ray did not show any signs of pneumonia. Patient will be admitted to the hospital. Differential Diagnosis Differential Diagnoses: The differential diagnosis associated with the presentation includes UTI, encephalopathy, hypercapnia, intracranial bleed, pneumonia Lab Data [facility] Lab Attestation statement: I reviewed the patient's lab results. 08/28/25 08:56 08/28/25 08:56 Labs: Lab Results 08/28/25 08/28/25 08/28/25 Range/Units 08:37 08:56 09:02 WBC 8.0 (4.8-10.8) X10*3/uL RBC 5.00 D (4.20-5.50) X10*6/uL Hgb 13.0 (12.0-16.0) g/dl Hct 42.8 (37.0-47.0) % MCV 85.6 (80.0-98.0) fL MCH 26.0 L (27.0-33.0) pg MCHC 30.4 L (31.0-35.0) g/dl RDW 15.2 (11.0-16.0) % Plt Count 255 (160-400) X10*3/uL MPV 11.0 (9.4-12.3) fL Immature Gran % (Auto) 0.3 (0.0-0.4) % Neut % (Auto) 73.2 H (45-73) % Lymph % (Auto) 15.5 L (20-40) % [place] % (Auto) 7.8 (2-11) % Eos % (Auto) 2.8 (0-4) % Baso % (Auto) 0.4 (0-2) % Lymph # (Auto) 1.2 (1.2-4.9) X10*3/uL [place] # (Auto) 0.6 (0.1-1.2) X10*3/uL Eos # (Auto) 0.2 (0.0-0.4) X10*3/uL Baso # (Auto) 0.0 (0.0-0.2) X10*3/uL Abs Immat Gran (auto) 0.02 (0.00-0.03) X10*3/uL Absolute Neuts (auto) 5.8 (2.0-8.3) x10*3/uL Absolute Nucleated RBC 0.000 (0.0-0.012) X10*3/uL Nucleated RBC % (auto) 0.0 (0.0-0.2) /100WBC VBG pH 7.43 (7.32-7.43) VBG pCO2 39 mmHg VBG pO2 53 mmHg VBG HCO3 26 (22-26) mmol/L VBG O2 Saturation 83.0 % VBG Base Excess 2.4 mmol/L Sodium 145 (135-145) mmol/L Potassium 4.1 (3.3-5.1) mmol/L Chloride 106 (96-108) mmol/L Carbon Dioxide 25 (22-29) mmol/L Anion Gap 18 (12-20) BUN 27 H (9-16) mg/dL Creatinine 1.08 (0.5-1.4) mg/dL Estim Creat Clear Calc 52.9 Estimated GFR 50 POC Glucose 114 (60-115) mg/dL Random Glucose 107 (60-115) mg/dL Lactic Acid 1.4 (0.5-2.0) mmol/L Calcium 10.4 H (8.4-10.2) mg/dL Total Bilirubin 0.5 (0.0-1.0) mg/dL AST 32 H (5-31) U/L ALT 15 (0-31) U/L Alkaline Phosphatase 70 (39-117) U/L Ammonia 20 (13-55) umol/L NT-Pro-B Natriuret Pep 285.2 (<300) pg/mL Total Protein 7.2 (6.5-8.0) g/dL Albumin 4.4 (3.5-5.0) g/dL Lipase 10 (8-78) U/L TSH 0.85 (0.32-4.0) uIU/mL Urine Color Urine Appearance Urine pH (5.0-9.0) Ur Specific [place] (1.005-1.025) Urine Protein (Neg-Trace) mg/dL Urine Glucose (UA) (Negative) mg/dL Urine Ketones (Negative) mg/dL Urine Blood (Negative) Urine Nitrite (Negative) Ur Leukocyte Esterase (Negative) Urine RBC (0-2) /HPF Urine WBC (0-5) /HPF Ur Squamous Epith Cells (0-2) /HPF Urine Bacteria (None Seen) Hyaline Casts (0-2) /LPF 08/28/25 Range/Units 09:40 WBC (4.8-10.8) X10*3/uL RBC (4.20-5.50) X10*6/uL Hgb (12.0-16.0) g/dl Hct (37.0-47.0) % MCV (80.0-98.0) fL MCH (27.0-33.0) pg MCHC (31.0-35.0) g/dl RDW (11.0-16.0) % Plt Count (160-400) X10*3/uL MPV (9.4-12.3) fL Immature Gran % (Auto) (0.0-0.4) % Neut % (Auto) (45-73) % Lymph % (Auto) (20-40) % [place] % (Auto) (2-11) % Eos % (Auto) (0-4) % Baso % (Auto) (0-2) % Lymph # (Auto) (1.2-4.9) X10*3/uL [place] # (Auto) (0.1-1.2) X10*3/uL Eos # (Auto) (0.0-0.4) X10*3/uL Baso # (Auto) (0.0-0.2) X10*3/uL Abs Immat Gran (auto) (0.00-0.03) X10*3/uL Absolute Neuts (auto) (2.0-8.3) x10*3/uL Absolute Nucleated RBC (0.0-0.012) X10*3/uL Nucleated RBC % (auto) (0.0-0.2) /100WBC VBG pH (7.32-7.43) VBG pCO2 mmHg VBG pO2 mmHg VBG HCO3 (22-26) mmol/L VBG O2 Saturation % VBG Base Excess mmol/L Sodium (135-145) mmol/L Potassium (3.3-5.1) mmol/L Chloride (96-108) mmol/L Carbon Dioxide (22-29) mmol/L Anion Gap (12-20) BUN (9-16) mg/dL Creatinine (0.5-1.4) mg/dL Estim Creat Clear Calc Estimated GFR POC Glucose (60-115) mg/dL Random Glucose (60-115) mg/dL Lactic Acid (0.5-2.0) mmol/L Calcium (8.4-10.2) mg/dL Total Bilirubin (0.0-1.0) mg/dL AST (5-31) U/L ALT (0-31) U/L Alkaline Phosphatase (39-117) U/L Ammonia (13-55) umol/L NT-Pro-B Natriuret Pep (<300) pg/mL Total Protein (6.5-8.0) g/dL Albumin (3.5-5.0) g/dL Lipase (8-78) U/L TSH (0.32-4.0) uIU/mL Urine Color Yellow Urine Appearance Clear Urine pH 5.5 (5.0-9.0) Ur Specific [place] 1.015 (1.005-1.025) Urine Protein Negative (Neg-Trace) mg/dL Urine Glucose (UA) 100 H (Negative) mg/dL Urine Ketones Negative (Negative) mg/dL Urine Blood Trace H (Negative) Urine Nitrite Negative (Negative) Ur Leukocyte Esterase Small (1+) H (Negative) Urine RBC 0-2 (0-2) /HPF Urine WBC 0-5 (0-5) /HPF Ur Squamous Epith Cells 0-2 (0-2) /HPF Urine Bacteria 1+ (None Seen) Hyaline Casts 6-10 (0-2) /LPF Independent Interpretation I performed an independent interpretation of an: Plain X-Ray and CT Scan Radiology Impression Discussion of test interpretation with radiology: I have reviewed the radiologist's reading. Discharge Plan Discharge Clinical Impression: UTI (urinary tract infection), Encephalopathy Patient Disposition: Admitted As Inpatient Print Language: Luxembourgish
[2025-08-28 09:03] LABS: Hematocrit 42.8 % (37.0-47.0); Hemoglobin 13.0 g/dl (12.0-16.0); Imm Gran Abs Auto 0.02 X10*3/uL (0.00-0.03); Imm Gran Pct Auto 0.3 % (0.0-0.4); Lymphocytes Absolute Auto 1.2 X10*3/uL (1.2-4.9); Mean Corpuscular HGB Conc 30.4 g/dl (31.0-35.0); Mean Corpuscular Hemoglobin 26.0 pg (27.0-33.0); Mean Corpuscular Volume 85.6 fL (80.0-98.0); NRBC Abs Auto 0.000 X10*3/uL (0.0-0.012); NRBC Pct Auto 0.0 /100WBC (0.0-0.2); Platelet Count 255 X10*3/uL (160-400); Red Blood Count 5.00 X10*6/uL (4.20-5.50); White Blood Count 8.0 X10*3/uL (4.8-10.8)
[2025-08-28 09:07] LABS: Venous Blood Gas Refer to POC result
[2025-08-28 09:08] LABS: VBG HCO3 26 mmol/L (22-26); VBG O2 % Saturation 83.0 %
[2025-08-28 09:17] LABS: Ammonia 20 umol/L (13-55)
[2025-08-28 09:26] LABS: Glucose, Whole Blood 114 mg/dL (60-115)
[2025-08-28 09:33] LABS: NT Pro B Type Natriuretic Pept 285.2 pg/mL (<300)
[2025-08-28 09:37] VITALS: BP 152/70; PULSE 92; RESP 18; O2SAT 96
[2025-08-28 09:37] LABS: Alanine Aminotransferase 15 U/L (0-31); Albumin Level 4.4 g/dL (3.5-5.0); Alkaline Phosphatase 70 U/L (39-117); Anion Gap 18 (12-20); Aspartate Amino Transferase 32 U/L (5-31); Blood Urea Nitrogen 27 mg/dL (9-16); Calcium 10.4 mg/dL (8.4-10.2); Carbon Dioxide 25 mmol/L (22-29); Chloride 106 mmol/L (96-108); Creatinine Clr Calc Pharmacy 52.9; Estimated Glomerular Filt Rate 50; Lipase 10 U/L (8-78); Potassium 4.1 mmol/L (3.3-5.1); Sodium 145 mmol/L (135-145); Total Protein 7.2 g/dL (6.5-8.0)
[2025-08-28 09:49] LABS: Appearance Urine Clear; Glucose Urine UA 100 mg/dL (Negative); PH 5.5 (5.0-9.0); Specific Gravity - Urine 1.015 (1.005-1.025); UMIC TRIGGER UA YES
--- NOTE | 2025-08-28 09:55 | MHC.EDTECH ---
WASNT ABLE TO GET EKG DONE PT WAS IN CT!
--- NOTE | 2025-08-28 11:27 | PC.NURSE ---
Pt presented to ED via ems as stroke alert. Was found wandering around outside her apartment hallway, pt confused and not making sense. NOT A STROKE WORKUP HERE PER MD. Pt has no unilateral deficits, no facial droop, able to follow commands. Pt is confused, having some trouble with her speech, LKWT unknown. Pt denying pain. Straight cath performed, foul urine noted. Pt medicated per NOV. No obvious trauma noted.
[2025-08-28 12:08] VITALS: BP 135/46; PULSE 94; RESP 16; TEMP 36.4; O2SAT 100
--- NOTE | 2025-08-28 12:32 | PM.IMHP ---
History of Present Illness Date of Service: 08/28/25 Chief Complaint: Altered Mental Status Patient is a 75 y/o female with PMH of HTN and Hypothyroidism, presenting to the ER for treatment of AMS. Patient was brought in by EMS after she was seen wondering the halls in her apartment, confused. Last known well time unknown. Patient is poor historian, alert and oriented x2 (person and place), appears to be altered, with short and minimal responses during assessments. In the ED SIRS criteria r/o lactic WNL, VBG negative for hypercapnia, TSH neg, CXR neg for pneumonia, U/A Leukrocyte 1+, other labs unremarkable, CT Negative for intracrainial abnormality. Review of Systems Review of Systems: Denies any recent fever chills or decrease in appetite Respiratory denies SOB, cough or wheezing Cardiovascular, BLE edema Gastrointestinal denies any dysphagia abdominal pain nausea vomiting or diarrhea Genitourinary denies any dysuria frequency or hematuria Musculoskeletal: BLE edema Neuropsych? no reports of weakness, no seizures all other systems reviewed are negative [facility] Medical History PTSD (post-traumatic stress disorder) Recurrent major depression-severe Family History Other Depression Social History Household Members: None Household Members Other:: Lives with her cat Housing: Apartment Housing Other:: group home housing Are you a primary healthcare customer service to a significant other at home: No Do you presently have visiting nurse or other home services: Yes Alcohol intake: never Patient Tobacco Use Status: Never used Tobacco Smoked in Last 30 Days: No Use of substances other than those prescribed or required for medical reasons: No Advance Directives: Yes Advance Directives on File: Yes Advance Directives Date on File: 03/26/23 service: No Meds Allergies Allergy/AdvReac Type Severity Reaction Status Date / Time lisinopril (LISINOPRIL) Allergy Intermediate RASH Verified 08/28/25 08:48 quetiapine (From SEROQUEL) Allergy Intermediate RASH Verified 08/28/25 08:48 sertraline (From ZOLOFT) Allergy Intermediate RASH, Verified 08/28/25 08:48 DIZZINESS loratadine (From CLARITIN) Allergy Mild UNKNOWN Verified 08/28/25 08:48 methimazole (From TAPAZOLE) Allergy Mild RASH Verified 08/28/25 08:48 potassium chloride Allergy Unknown Unknown Verified 08/28/25 08:48 propranolol (PROPRANOLOL) AdvReac Severe anergy Verified 08/28/25 08:48 Active Medications: Current Medications Acetaminophen (Acetaminophen 325 Mg Tablet) 650 mg PO Q6H PRN PRN Reason: Pain, Mild 1-3,fever,headache Calcium Carbonate (Calcium Carbonate 750 Mg Tab.Chew) 750 mg PO Q4H PRN PRN Reason: Heartburn Heparin Sodium (Porcine) (Heparin Sodium,Porcine 5,000 Unit/Ml Vial) 5,000 unit SUBCUT Q12H [facility] Last Admin: 08/28/25 12:09 Dose: 5,000 unit Magnesium Hydroxide (Milk Of Magnesia 30 Ml Oral.Susp) 30 ml PO DAILY PRN PRN Reason: Constipation Melatonin (Melatonin 3 Mg Tablet) 6 mg PO BEDTIME PRN PRN Reason: Insomnia Ondansetron HCl (Ondansetron Hcl 4 Mg/2 Ml Vial) 4 mg IVPUSH Q8H PRN PRN Reason: Nausea and Vomiting Sodium Chloride (0.9 % Sodium Chloride Flush 3 Ml Syringe) 3 ml IVFLUSH QSHIFT [facility] Home Medications ?Medication ?Instructions ?Recorded ?Confirmed ?Last Taken ?Type aspirin 81 mg chewable tablet 1 tab PO DAILY 06/21/20 08/28/25 04/14/25 History cholecalciferol (vitamin D3) 25 1 tab PO DAILY 06/21/20 08/28/25 04/14/25 History mcg (1,000 unit) tablet (Vitamin D3) allopurinol 100 mg tablet 100 mg PO DAILY 03/26/23 08/28/25 04/14/25 History amlodipine 10 mg tablet 10 mg PO DAILY 03/26/23 08/28/25 04/14/25 History dapagliflozin propanediol 10 mg 10 mg PO DAILY 03/26/23 08/28/25 04/14/25 History tablet (Farxiga) nystatin 100,000 unit/gram topical 1 appl topical BID PRN Rash 03/26/23 08/28/25 Unknown History powder torsemide 20 mg tablet 40 mg PO DAILY 03/26/23 08/28/25 04/14/25 History escitalopram oxalate 10 mg tablet 10 mg PO BEDTIME 04/14/25 08/28/25 04/13/25 History levothyroxine 150 mcg tablet 150 mcg PO DAILY@0600 04/14/25 08/28/25 04/14/25 History baclofen 20 mg tablet 20 mg PO BEDTIME PRN Muscle Spasm 04/22/25 08/28/25 Unknown History carvedilol 3.125 mg tablet 3.125 mg PO BID 08/28/25 08/28/25 Unknown History escitalopram oxalate 20 mg tablet 20 mg PO DAILY 08/28/25 08/28/25 Unknown History gabapentin 600 mg tablet 600 mg PO TID anxiety 08/28/25 08/28/25 Unknown History losartan 25 mg tablet 25 mg PO DAILY 08/28/25 08/28/25 Unknown History Physical Exam Vital Signs and Narrative: Vital Signs: Last Vital Signs Temp 97.6 F 08/28/25 12:08 Pulse 94 08/28/25 12:08 Resp 16 08/28/25 12:08 BP 135/46 L 08/28/25 12:08 Pulse Ox 100 08/28/25 12:08 O2 Del Method Room Air 08/28/25 12:08 BMI result Body Mass Index 38.4 Appearing in no acute distress head is normocephalic atraumatic eyes pupils are PERRLA sclera is anicteric mouth throat mucous membranes are intact and moist neck is supple no lymphadenopathy, no JVD noted lung sounds clear bilaterally heart regular rate rhythm, clear? S1, S2, nonpitting edema BLE positive bowel sounds, abdomen obese is soft, nontender neuro See HPI Results Labs 08/28/25 08:56 08/28/25 08:56 Labs: Laboratory Results - last 24 hr 08/28/25 08/28/25 08/28/25 08:37 08:56 09:02 MCV 85.6 MCH 26.0 L MCHC 30.4 L RDW 15.2 Plt Count 255 MPV 11.0 Immature Gran % (Auto) 0.3 Neut % (Auto) 73.2 H Lymph % (Auto) 15.5 L [place] % (Auto) 7.8 Eos % (Auto) 2.8 Baso % (Auto) 0.4 Lymph # (Auto) 1.2 [place] # (Auto) 0.6 Eos # (Auto) 0.2 Baso # (Auto) 0.0 Abs Immat Gran (auto) 0.02 Absolute Neuts (auto) 5.8 Absolute Nucleated RBC 0.000 Nucleated RBC % (auto) 0.0 VBG pH 7.43 VBG pCO2 39 VBG pO2 53 VBG HCO3 26 VBG O2 Saturation 83.0 VBG Base Excess 2.4 Anion Gap 18 Estim Creat Clear Calc 52.9 Estimated GFR 50 POC Glucose 114 Random Glucose 107 Lactic Acid 1.4 Calcium 10.4 H Total Bilirubin 0.5 AST 32 H ALT 15 Alkaline Phosphatase 70 Ammonia 20 NT-Pro-B Natriuret Pep 285.2 Total Protein 7.2 Albumin 4.4 Lipase 10 TSH 0.85 Urine Color Urine Appearance Urine pH Ur Specific [place] Urine Protein Urine Glucose (UA) Urine Ketones Urine Blood Urine Nitrite Ur Leukocyte Esterase Urine RBC Urine WBC Ur Squamous Epith Cells Urine Bacteria Hyaline Casts 08/28/25 09:40 MCV MCH MCHC RDW Plt Count MPV Immature Gran % (Auto) Neut % (Auto) Lymph % (Auto) [place] % (Auto) Eos % (Auto) Baso % (Auto) Lymph # (Auto) [place] # (Auto) Eos # (Auto) Baso # (Auto) Abs Immat Gran (auto) Absolute Neuts (auto) Absolute Nucleated RBC Nucleated RBC % (auto) VBG pH VBG pCO2 VBG pO2 VBG HCO3 VBG O2 Saturation VBG Base Excess Anion Gap Estim Creat Clear Calc Estimated GFR POC Glucose Random Glucose Lactic Acid Calcium Total Bilirubin AST ALT Alkaline Phosphatase Ammonia NT-Pro-B Natriuret Pep Total Protein Albumin Lipase TSH Urine Color Yellow Urine Appearance Clear Urine pH 5.5 Ur Specific [place] 1.015 Urine Protein Negative Urine Glucose (UA) 100 H Urine Ketones Negative Urine Blood Trace H Urine Nitrite Negative Ur Leukocyte Esterase Small (1+) H Urine RBC 0-2 Urine WBC 0-5 Ur Squamous Epith Cells 0-2 Urine Bacteria 1+ Hyaline Casts 6-10 Imaging Radiologist's Impressions: Impressions Head CT 08/28/25 09:15 IMPRESSION: No acute intracranial abnormality. Electronically signed by: Giles Caballero MD 08/28/2025 10:00 AM EST RP Chest X-Ray 08/28/25 09:17 IMPRESSION: Chronic interstitial lung disease. Electronically signed by: Delfino Sharma MD 08/28/2025 09:27 AM EST RP Assessment and Plan (1) Urinary retention: Status: Acute Plan 75 y/o old female admitted for treatment of Encephalopathy and UTI Encephalopathy likely secondary to UTI Urine culture pending Ceftriaxone 1g daily Review home medications for poly pharmacy Avoid Benzo, Opioids, antihistamine Intermittent Asthma no acute exacerbation Continue home inhalers Hypothyroidism Continue Levothyroxine HTN Stable blood pressure Continue home medications Lymphedema continue home medications Mental health Continue home medications DVT prophylaxis with heparin Full code Quality Stroke Does the patient have a stroke diagnosis?: No VTE Prior VTE?: No VTE Risk Level:: Medical - moderate - high VTE Device Contraindication: Treatment Not Indicated VTE Drug Contraindication: N/A - Med Ordered
--- NOTE | 2025-08-28 14:21 | PC.NURSE ---
Pt resting in bed. Purewick in place for urine incontinence
[2025-08-28] MEDS: 0.9 % Sodium Chloride Flush 3 ML SYRINGE IVFLUSH ×2 (15:32→21:11)
--- NOTE | 2025-08-28 15:34 | PHA.MEDREC ---
Addendum entered by Eloina Ramsey [facility] 08/28/25 16:19: Patient had recent fills for losartan and carvedilol that were filled more recently. I put the decreased dose of carvedilol 3.125 mg bid and losartan 25 mg daily on her list as it looks like these doses were filled most recently. Original Note: Pharmacy Consult ? Medication Reconciliation Pharmacy has completed the medication reconciliation. Pt poor historian and unable to verify meds at this time with me. Spoke with pt sister and she was at pt apartment and able to read pt rx bottles to me; sister unable to find Amlodipine or Baclofen Rx bottles at home but kept those on med rec since Amlodipine LF 06/12 for 90 days and Baclofen LF 08/19 for 90 days.
[2025-08-28 16:38] VITALS: BP 153/61; PULSE 96; RESP 19; TEMP 36.6; O2SAT 96
--- NOTE | 2025-08-28 17:03 | PC.NURSE ---
This RN did bedside swallow, pt unable to swallow water reports she is having trouble with swallowing. MD notified and NPO until speech eval placed
--- NOTE | 2025-08-28 17:32 | PC.NURSE ---
Pt retaining urine, bladder scan almost 700 mL with no urgency. MD notified awaiting orders
--- NOTE | 2025-08-28 17:33 | HO.NURTONUR ---
PER MD: Patient is a 75 y/o female with PMH of HTN and Hypothyroidism, presenting to the ER for treatment of AMS. Patient was brought in by EMS after she was seen wondering the halls in her apartment, confused. Last known well time unknown. Patient is poor historian, alert and oriented x2 (person and place), appears to be altered, with short and minimal responses during assessments. In the ED SIRS criteria r/o lactic WNL, VBG negative for hypercapnia, TSH neg, CXR neg for pneumonia, U/A Leukrocyte 1+, other labs unremarkable, CT Negative for intracrainial abnormality. PER RN: Alert but confused Admit: encephalopathy d/t UTI IV: 22G in right hand, 18G in right AC IV ABX NPO pending swallow eval, failed bedside, having hard time swallowing retaining urine, awaiting MD orders
--- NOTE | 2025-08-28 17:46 | PC.NURSE ---
Addendum entered by Jocelyn Peter RN 08/28/25 18:33: output 625 mL after straight cath. MD reported if pt retaining again, obtain order for costa Original Note: straight cath per MD
[2025-08-28 17:59] VITALS: BP 134/83; PULSE 95; RESP 22; TEMP 37.6; O2SAT 95
[2025-08-28 19:37] VITALS: BMI 40.0
[2025-08-28 20:13] VITALS: BP 141/68; PULSE 89; RESP 18; TEMP 36.7; O2SAT 92
[2025-08-28] MEDS: diazePAM 10 MG/2 ML CARTRIDGE 2.5 MG IVPUSH (21:11)
--- NOTE | 2025-08-28 23:09 | PC.NURSE ---
Patient awake, alert to place, name. Was able to state her birthday correctly. Reported being anxious for which Valium one dose ordered in ED and given here on S3 upon arrival. Patient was very thirsty and asking for water. Introduced with a tiny amount of fluid via spoon and did very well, no coughing. Bedtime meds given crushed with a small amount of apple sauce with no problem.
[2025-08-29] VITALS (7 sets, daily range): BP systolic 124–169; BP diastolic 55–75; PULSE 73–81; RESP 17–19; TEMP 36.2–36.7; O2SAT 95–98
--- NOTE | 2025-08-29 04:47 | PC.NURSE ---
Patient unable to void. Bladder scanned for 659 ml, st cath for 650. Patient tolerated procedure well.
[2025-08-29 06:33] LABS: Hematocrit 44.5 % (37.0-47.0); Hemoglobin 13.4 g/dl (12.0-16.0); Mean Corpuscular HGB Conc 30.1 g/dl (31.0-35.0); Mean Corpuscular Hemoglobin 25.9 pg (27.0-33.0); Mean Corpuscular Volume 86.1 fL (80.0-98.0); NRBC Abs Auto 0.000 X10*3/uL (0.0-0.012); NRBC Pct Auto 0.0 /100WBC (0.0-0.2); Platelet Count 217 X10*3/uL (160-400); Red Blood Count 5.17 X10*6/uL (4.20-5.50); White Blood Count 5.5 X10*3/uL (4.8-10.8)
[2025-08-29 06:50] LABS: Anion Gap 14 (12-20); Blood Urea Nitrogen 15 mg/dL (9-16); Calcium 10.1 mg/dL (8.4-10.2); Carbon Dioxide 25 mmol/L (22-29); Chloride 111 mmol/L (96-108); Creatinine Clr Calc Pharmacy 81.3; Estimated Glomerular Filt Rate > 60; Potassium 3.7 mmol/L (3.3-5.1); Sodium 146 mmol/L (135-145)
[2025-08-29] MEDS: 0.9 % Sodium Chloride Flush 3 ML SYRINGE IVFLUSH ×3 (08:58→21:05)
[2025-08-29] MEDS: buPROPion HCl XL 300 MG TAB.ER.24H PO (08:58)
--- NOTE | 2025-08-29 12:55 | MHC.SL.SWA ---
Speech Pathologist Impression: Mild oropharyngeal dysphagia Risk of Aspiration Due to: Previous smoker, Current encephalopathy, Dentition status Dysphasia Diet Status: Recommend START NDD2 (ground/mechanical), THIN liquids with intermittent supervision Liquid Consistency and Strategies for Safe Swallow: Liquid Intake Recommendation: Thin Liquid Intake Strategies: Solid Food Consistency: Dietary Recommendations: Grnd/Mech Altered (NDD2) Additional Modifications to Solid Foods: Oral Medication Intake: Whole with Liquid Please contact the pharmacy regarding appropriate crushable or liquid drug formulations that are available whenever modified delivery is recommended. Compensatory Strategies and Precautions to be Taken for Safe Swallow: Supervision While Eating and Drinking for Safe Swallow: Intermittent Supervision Foods to Avoid: Swallowing Recommended Treatments: Compensatory Strategies Recommendation for Speech: Inpatient Speech Therapy Comment: Patient presents with mild oropharyngeal dysphagia. Patient's dysphagia exacerbated by dentition; increased mastication efforts and eventual expectoration of piece of plain evangelina cracker. Patient reports no swallowing difficulties or any esophageal s/sx. Patient reports that her home health aide makes meals such as soft sandwiches, tender meats, etc. Patient with vocal changes over past 3 months; noted hoarse,dry, sometimes aphonic. Patient denies any odynophagia or pain with talking. Patient with sporadic dry coughing throughout evaluation. No overt s/sx of penetration/aspiration noted. Patient reports throat clearing and coughing reduce hoarse vocal quality but do not eliminate. Patient has an ENT appointment in November. Recommend START diet of NDD2 (ground/mechanical), THIN liquids with intermittent supervision (mild confusion at times) and medications ONE AT A TIME/WHOLE with liquids. Recommendations communicated with MD and RN via secure chat. PHONE OPERATOR to follow. Frequency/Duration: M-F Daily Date Range for Service Req: Timeline to reassess: Turntable Worker Clinican/Clinical Fellow: No Supervisory Statement: I have reviewed and agree with the student/clinical fellow's documentation: N/A Speech Language Pathologist: Asmita Cutler M.A., CCC-PHONE OPERATOR
--- NOTE | 2025-08-29 13:42 | MHC.CM.PN ---
pt lives alone has curriculum assistant mon to fri 9 to 1 will arrange own transport home
--- NOTE | 2025-08-29 14:08 | HO.PM.IMPN ---
Subjective Subjective Date of Service: 08/29/25 Interval History: Remains altered No new complaints or issues Noting erythema around the vaginal area by nursing on evaluation Review of Systems Review of Systems: Yes Unobtainable due to mental condition and Unobtainable due to mental status Physical Exam Exam: Exam: General: comfortable, no pain Cardiac: S1, S2 auscultated with no S3/4, no MRG. Well perfused. Respiratory: Normal breath sounds auscultated throughout all lung zones, without wheezing, rales. Normal rate. GI/ : No abdominal pain on palpation, no masses or distentions. MSK: Normal ambulation without pain at bony prominences or musculature Neurological: Normal neurological examination on overview, without obvious CN II-XII abnormalities. Vital Signs: Vital Signs: Last Vital Signs Temp 97.1 F 08/29/25 07:39 Pulse 73 08/29/25 08:59 Resp 17 08/29/25 07:39 BP 169/75 H 08/29/25 08:59 Pulse Ox 98 08/29/25 07:39 O2 Del Method Room Air 08/29/25 07:39 BMI result Body Mass Index 40.0 Objective Data Active Medications Acetaminophen (Acetaminophen 325 Mg Tablet) 650 mg PO Q6H PRN PRN Reason: Pain, Mild 1-3,fever,headache Allopurinol (Allopurinol 100 Mg Tablet) 100 mg PO DAILY [facility] Last Admin: 08/29/25 08:58 Dose: 100 mg Documented By: ELOISE Amlodipine Besylate (Amlodipine Besylate 10 Mg Tablet) 10 mg PO DAILY [facility]; Protocol Last Admin: 08/29/25 08:58 Dose: 10 mg Documented By: ELOISE Aspirin (Aspirin 81 Mg Tab.Chew) 81 mg PO DAILY [facility] Last Admin: 08/29/25 09:00 Dose: 81 mg Documented By: ELOISE Baclofen (Baclofen 20 Mg Tablet) 20 mg PO BEDTIME PRN PRN Reason: Muscle Spasm Bupropion HCl (Bupropion Hcl Xl 300 Mg Tab.Er.24h) 300 mg PO DAILY [facility] Last Admin: 08/29/25 08:58 Dose: 300 mg Documented By: ELOISE Calcium Carbonate (Calcium Carbonate 750 Mg Tab.Chew) 750 mg PO Q4H PRN PRN Reason: Heartburn Carvedilol (Carvedilol 3.125 Mg Tablet) 3.125 mg PO BID [facility]; Protocol Last Admin: 08/29/25 08:59 Dose: 3.125 mg Documented By: ELOISE Empagliflozin (Empagliflozin 10 Mg Tablet) 10 mg PO DAILY [facility] Last Admin: 08/29/25 08:58 Dose: 10 mg Documented By: ELOISE Escitalopram Oxalate (Escitalopram Oxalate 10 Mg Tablet) 10 mg PO BEDTIME [facility] Last Admin: 08/28/25 21:10 Dose: 10 mg Documented By: ORA Escitalopram Oxalate (Escitalopram Oxalate 20 Mg Tablet) 20 mg PO DAILY [facility] Last Admin: 08/29/25 08:58 Dose: 20 mg Documented By: ELOISE Gabapentin (Gabapentin 600 Mg Tablet) 600 mg PO TID [facility] Last Admin: 08/29/25 08:58 Dose: 600 mg Documented By: ELOISE Heparin Sodium (Porcine) (Heparin Sodium,Porcine 5,000 Unit/Ml Vial) 5,000 unit SUBCUT Q12H [facility] Last Admin: 08/29/25 12:04 Dose: 5,000 unit Documented By: ELOISE Ceftriaxone Sodium 1 gm/ (Sodium Chloride) 50 mls @ 100 mls/hr IV Q24H [facility] Last Infusion: 08/29/25 09:39 Dose: Infused Documented By: ELOISE Sodium Chloride (Sodium Chloride 0.45 %) 1,000 mls @ 80 mls/hr IVCONT .[id number] [facility] On Hold: 08/29/25 10:35 Last Infusion: 08/29/25 11:02 Dose: Infused Documented By: ELOISE Levothyroxine Sodium (Levothyroxine Sodium 150 Mcg Tablet) 150 mcg PO DAILY@0600 [facility] Last Admin: 08/29/25 05:43 Dose: 150 mcg Documented By: ORA Losartan Potassium (Losartan Potassium 25 Mg Tablet) 25 mg PO DAILY [facility]; Protocol Last Admin: 08/29/25 08:59 Dose: 25 mg Documented By: ELOISE Magnesium Hydroxide (Milk Of Magnesia 30 Ml Oral.Susp) 30 ml PO DAILY PRN PRN Reason: Constipation Melatonin (Melatonin 3 Mg Tablet) 6 mg PO BEDTIME PRN PRN Reason: Insomnia Nystatin (Nystatin Powder 15 Gm Bottle) 1 appl TOPICAL BID [facility]; Protocol Ondansetron HCl (Ondansetron Hcl 4 Mg/2 Ml Vial) 4 mg IVPUSH Q8H PRN PRN Reason: Nausea and Vomiting Sodium Chloride (0.9 % Sodium Chloride Flush 3 Ml Syringe) 3 ml IVFLUSH QSHIFT [facility] Last Admin: 08/29/25 08:58 Dose: 3 ml Documented By: ELOISE Torsemide (Torsemide 20 Mg Tablet) 40 mg PO DAILY [facility]; Protocol Last Admin: 08/29/25 08:58 Dose: 40 mg Documented By: ELOISE Vitamin D (Cholecalciferol (Vitamin D3) 25 Mcg Tablet) 25 mcg PO DAILY [facility] Last Admin: 08/29/25 09:00 Dose: 25 mcg Documented By: ELOISE Labs 08/29/25 06:11 08/29/25 06:11 Labs: Laboratory Results - last 24 hr 08/29/25 06:11 MCV 86.1 MCH 25.9 L MCHC 30.1 L RDW 15.2 Plt Count 217 MPV 11.2 Absolute Nucleated RBC 0.000 Nucleated RBC % (auto) 0.0 Anion Gap 14 Estim Creat Clear Calc 81.3 Estimated GFR > 60 Random Glucose 88 Calcium 10.1 Microbiology Microbiology Results: Microbiology 08/28/25 09:00 Blood Culture - Preliminary Blood - Venous No growth after 24 hours. 08/28/25 09:00 Blood Culture - Preliminary Blood - Venous No growth after 24 hours. Assessment and Plan (1) HTN (hypertension): Status: Acute (2) Hypothyroid: Status: Acute (3) UTI (urinary tract infection): Status: Acute (4) Anemia: Status: Acute (5) Encephalopathy: Status: Acute (6) Bilateral lower extremity edema: Status: Acute (7) Lymphedema: Status: Acute Plan 75 y/o old female admitted for treatment of Encephalopathy and UTI Acute encephalopathy likely secondary to UTI Urine culture pending Ceftriaxone 1g daily Review home medications for poly pharmacy Avoid Benzo, Opioids, antihistamine Dehydration Encourage PO intake of fluids & food Hold IVF Monitor urinary output Intermittent Asthma no acute exacerbation Continue home inhalers Hypothyroidism Continue Levothyroxine HTN Stable blood pressure Continue home medications Lymphedema continue home medications Mental health Continue home medications [employer] [employer] - VTE: Heparin 5000 t.i.d. - CODE STATUS: Full code - DIET: Regular - DISPOSITION: Requires inpatient hospitalization for 2 midnights due to acute encephalopathy Total time managing care of this patient today: 35 minutes. Quality Stroke Does the patient have a stroke diagnosis?: No VTE Prior VTE?: No VTE Risk Level:: Medical - moderate - high VTE Device Contraindication: Treatment Not Indicated VTE Drug Contraindication: N/A - Med Ordered
[2025-08-30 03:08] VITALS: BP 115/51; PULSE 72; RESP 18; TEMP 36.8; O2SAT 95
[2025-08-30 07:39] VITALS: BP 120/56; PULSE 70; RESP 18; TEMP 36.4; O2SAT 93
--- NOTE | 2025-08-30 09:08 | PM.DS ---
DS: Providers Provider Date of Service: 08/30/25 Date of admission: 08/28/25 11:49 Date of discharge: 08/30/25 Primary care physician: Unknown Physician DS: Diagnosis Discharge Diagnosis (1) HTN (hypertension): Status: Acute (2) Hypothyroid: Status: Acute (3) UTI (urinary tract infection): Status: Acute (4) Anemia: Status: Acute (5) Encephalopathy: Status: Acute (6) Bilateral lower extremity edema: Status: Acute (7) Lymphedema: Status: Acute DS: Summary Hospital Course Hospital Course: 75 y/o old female admitted for treatment of Encephalopathy secondary to bilateral lower extremity nonpurulent cellulitis and uncomplicated UTI. Chief Complaint: Altered Mental Status Patient is a 75 y/o female with PMH of HTN and Hypothyroidism, presenting to the ER for treatment of AMS. Patient was brought in by EMS after she was seen wondering the halls in her apartment, confused. Last known well time unknown. Patient is poor historian, alert and oriented x2 (person and place), appears to be altered, with short and minimal responses during assessments. In the ED SIRS criteria r/o lactic WNL, VBG negative for hypercapnia, TSH neg, CXR neg for pneumonia, U/A Leukrocyte 1+, other labs unremarkable, CT Negative for intracranial abnormality. Acute encephalopathy - Bilateral LE nonpurulent cellulitis - Uncomplicated UTI Urine culture consistent with uncomplicated UTI Ceftriaxone 1g daily was given Impression of bilateral LE cellulitis was primary infectious issue contributing to patient presentation. Risk factors for cellulitis include sedentiary lifestyle and bilateral chronic lymphedema Review home medications for poly pharmacy Avoid Benzo, Opioids, antihistamine Transitioning to augmentin 500mg BID PO for 7 days total on discharge Dehydration Encourage PO intake of fluids & food Received IV hydration during inpatient stay Urinary output has been appropriate Eating and drinking well. Intermittent Asthma no acute exacerbation Continue home inhalers Hypothyroidism Continue Levothyroxine HTN Stable blood pressure Continue home medications Lymphedema continue home medications Mental health Continue home medications Status at Discharge Cognitive/behavioral status at discharge: Alert and oriented to person place time and situation Functional status at discharge: independent ambulation Overall status at discharge: patient is back to baseline Time Attestation Total time managing care of this patient today: 45 mintues. Discharge Coordination Time (in mins): 35 Quality: Safe Use of Opioids Does Pt have an Active Cancer Diagnosis on the Problem List?: No Quality: Stroke Does the patient have a stroke diagnosis?: No Physical Exam Exam: Exam: General: comfortable, no pain Cardiac: S1, S2 auscultated with no S3/4, no MRG. Well perfused. Respiratory: Normal breath sounds auscultated throughout all lung zones, without wheezing, rales. Normal rate. GI/ : No abdominal pain on palpation, no masses or distentions. MSK: Normal ambulation without pain at bony prominences or musculature LEs: Bilateral lower extremity non pitting edema, R>L erythema improving Neurological: Normal neurological examination on overview, without obvious CN II-XII abnormalities. Vital Signs: Vital Signs: Last Vital Signs Temp 97.5 F 08/30/25 07:39 Pulse 70 08/30/25 07:39 Resp 18 08/30/25 07:39 BP 120/56 L 08/30/25 07:39 Pulse Ox 93 08/30/25 07:39 O2 Del Method Room Air 08/30/25 07:39 BMI result Body Mass Index 40.0 DS: Data Data Completed and Pending Labs on day of discharge: Preliminary micro results at discharge 08/28/25 09:00 Blood Culture - Preliminary Blood - Venous No growth after 24 hours. 08/28/25 09:00 Blood Culture - Preliminary Blood - Venous No growth after 24 hours. Discharge Plan Discharge Anticipated Discharge Date/Time: 08/30/25 09:13 Patient Disposition: Home Health Service Discharge Diagnosis: Acute toxic encephalopathy 2/2 bilateral lower extremity nonpurulent cellulitis with superimposed uncomplicated UTI Referrals: Physician,Unknown J [Primary Care Provider, Medical] - 1 Week Discharge Medications: New amoxicillin-pot clavulanate [Augmentin] 500-125 mg tablet 1 tab PO BID 7 Days Qty: 14 0RF Continued aspirin 81 mg tablet,chewable 1 tab PO DAILY cholecalciferol (vitamin D3) [Vitamin D3] 25 mcg (1,000 unit) tablet 1 tab PO DAILY bupropion HCl 300 mg tablet extended release 24 hr 1 tab PO DAILY Qty: 90 0RF torsemide 20 mg tablet 40 mg PO DAILY allopurinol 100 mg tablet 100 mg PO DAILY amlodipine 10 mg tablet 10 mg PO DAILY nystatin 100,000 unit/gram powder 1 appl topical BID PRN (Reason: Rash) Rx Instructions: apply to affected areas under breast or leg folds dapagliflozin propanediol [Farxiga] 10 mg tablet 10 mg PO DAILY levothyroxine 150 mcg tablet 150 mcg PO DAILY@0600 escitalopram oxalate 10 mg tablet 10 mg PO BEDTIME baclofen 20 mg tablet 20 mg PO BEDTIME PRN (Reason: Muscle Spasm) gabapentin 600 mg tablet 600 mg PO TID escitalopram oxalate 20 mg tablet 20 mg PO DAILY carvedilol 3.125 mg Tablet 3.125 mg PO BID Rx Instructions: must administer with a meal/food losartan 25 mg Tablet 25 mg PO DAILY Discharge Orders: Discharge Order (Routine); Ordered 08/30/25 Ordered By: Troy Oliver Diet: Advance to usual diet Activity on Discharge: As tolerated Stand Alone Forms: Patient Portal Discharge page Print Language: French Care Plan Goals: As above Health Concerns: As above Plan of Treatment: Follow up with PCP within 1 week of discharge Follow up at the lymphedema clinic in outpatient setting Assessment: Hemodynamically stable for discharge. Resolution of bilateral lower extremity nonpurulent cellulitis and uncomplicated UTI We will continue with antibiotics for 7 days until complete Would recommend the patient to engage with VNA services and physical therapy at home to improve strength. If she has to fail physical therapy at home, would recommend the patient to transfer to short-term rehabilitation to continue rehab
--- NOTE | 2025-08-30 09:17 | P.F2F_ITS ---
Service Date Service Date: 08/30/25 Encounter Date of encounter: 08/30/25 Reasons for Services Signs and symptoms assessed: Bilateral lower extremity edema, elderly, sarcopenia, limited mobility Reason for fci: medication management and teach disease management Reason for physical therapy: home safety and mobility, therapeutic exercises, re store joint function, gait/transfer training, assess need for DME, ADL training and energy conservation Homebound: Leaving the home is medically contraindicated at this time without the asist of a device and/or another person due th the listed conditions above and below. Reason homebound: unsteady gait / fall risk, leg weakness and poor balance / fall risk Certification: Based on the above findings, I certify that this patient is confined to the home and needs intermittent fci care, physical therapy and/or speech therapy, or continues to need occupational therapy. The patient is under my care, and I have initiated the establishment of the plan of care. The patient will be followed by a physician who will periodically review the plan of care. Time Spent With Patient Time: Total time managing care of this patient today 35 minutes.
[2025-08-30 09:47] VITALS: BP 122/59
[2025-08-30 09:48] VITALS: PULSE 79
[2025-08-30] MEDS: buPROPion HCl XL 300 MG TAB.ER.24H PO (09:48)
[2025-08-30] MEDS: 0.9 % Sodium Chloride Flush 3 ML SYRINGE IVFLUSH (09:50)
--- NOTE | 2025-08-30 10:22 | MHC.CM.PN ---
pt dcd home [place] [facility] [place] T 2:15
--- NOTE | 2025-08-30 10:36 | MHC.SL.SWA ---
Speech Pathologist Impression: Oropharyngeal coordination WNL Risk of Aspiration Due to: Recent changes to voice, pt has pending ENT appointment Dysphasia Diet Status: Liquid Consistency and Strategies for Safe Swallow: Liquid Intake Recommendation: Thin Liquid Intake Strategies: Solid Food Consistency: Dietary Recommendations: Regular Additional Modifications to Solid Foods: Oral Medication Intake: Whole with Liquid Please contact the pharmacy regarding appropriate crushable or liquid drug formulations that are available whenever modified delivery is recommended. Compensatory Strategies and Precautions to be Taken for Safe Swallow: Sitting Upright (90 deg) Small Bites and Sips Alternate Liquids/Solids Rate of Ingestion Change Supervision While Eating and Drinking for Safe Swallow: None Needed Foods to Avoid: Swallowing Recommended Treatments: Compens. Strategy Educat. Recommendation for Speech: Inpatient Speech Therapy Comment: Oropharyngeal coordination back to baseline, pt tolerates regular consistencies and thin liquids without overt s/s of aspiration. Pt endorses recent changes to her voice, has pending ENT appointment. Frequency/Duration: M-F Daily Date Range for Service Req: Timeline to reassess: Medical Reimbursement Manager Clinican/Clinical Fellow: No Supervisory Statement: I have reviewed and agree with the student/clinical fellow's documentation: N/A Speech Language Pathologist: Chayo Engel M.S., CCC-INSURANCE SALES REPRESENTATIVE
--- NOTE | 2025-08-30 10:47 | PC.NURSE ---
Roman d/c per Dr. Oliver ,patient is being discharged later today
--- NOTE | 2025-08-30 14:32 | MHC.SLORD ---
Speech Language Pathology Order Status: Pt is tolerating diet as ordered, refused further PO with PHONE REPRESENTATIVE this morning. No concerns reported by RN or sitter. PHONE REPRESENTATIVE to sign off at this time.
--- NOTE | 2025-08-30 15:16 | MHC.CM.PN ---
Patient was not able to get into [facility] [place]. CM was notified. The patient was returned to her room. Transportation has been booked with [facility]. She with transport via [facility] 5pm [facility] pick.
--- NOTE | 2025-08-30 15:36 | PC.NURSE ---
[facility] unable to transport patient stating patient needs assistance,patient brought back up by RENEE Ji,case mgmt aware,ambulance will tile picker patient at 5 pm ,patient made aware
[2025-08-30 16:00] VITALS: BP 115/56; PULSE 76; RESP 19; TEMP 36.1; O2SAT 96
--- NOTE | 2025-08-30 18:29 | P.CDIM_ITS ---
PROVIDER RESPONSE TEXT: To clarify, the appropriate diagnosis supported by the clinical indicators: Toxic QUERY TEXT: PHYSICIAN'S DOCUMENTATION REQUEST Date of Query: 08/30/2025 05:47 AM EST Patient Name: Sharon Nugent Admit Date: 08/28/2025 Dear Troy Oliver MD, A review of the medical record indicates additional documentation may be needed. Please review below and update the documentation accordingly. Clinical Indicators: ED 08/28/25 - altered mental status, was found wandering her hallway of her apartment. Confused. Appears to be altered with short minimal responses during assessments. H&P and Progress note 08/29/10 - Acute encephalopathy likely secondary to UTI. Ceftriaxone 1g daily Based on the above, please further specify, in the Progress Notes, the known or suspected type of the documented encephalopathy: Metabolic Toxic Toxic metabolic Hypertensive Other (explain) Clinically unable to determine (explain) Thank you, Radha Breaux, CCS, CDIS Use of terms such as suspected, likely, concern for, or probable (associated with a specific diagnosis that is being evaluated, monitored, or treated as if it exists) are acceptable and can be coded in the inpatient setting, when documented at the time of discharge. Please use your independent medical judgment in providing your response. THIS QUERY IS PART OF THE PERMANENT MEDICAL RECORD
--- NOTE | 2025-08-30 18:29 | P.CDIM_ITS ---
PROVIDER RESPONSE TEXT: To clarify, the appropriate diagnosis supported by the clinical indicators: Obesity: 3 QUERY TEXT: PHYSICIAN'S DOCUMENTATION REQUEST Date of Query: 08/30/2025 05:51 AM EST Patient Name: Sharon Nugent Admit Date: 08/28/2025 Dear Troy Oliver MD, A review of the medical record indicates additional documentation may be needed. Please review below and update the documentation accordingly. Clinical Indicators: Height: 5ft 4in Weight: 105.7kg BMI: 40.0 Other Clinical Notes Supporting Significance of the BMI: Nursing notes Height and Weight: Extreme obesity Class III If possible, please provide an associated diagnosis related to the abnormal BMI, such as: Morbid Obesity due to excess calories Obesity Class I, II, III Other specifics to the BMI Other (explain) Clinically unable to determine (explain) Thank you, Radha Breaux, CCS, CDIS Use of terms such as suspected, likely, concern for, or probable (associated with a specific diagnosis that is being evaluated, monitored, or treated as if it exists) are acceptable and can be coded in the inpatient setting, when documented at the time of discharge. Please use your independent medical judgment in providing your response. THIS QUERY IS PART OF THE PERMANENT MEDICAL RECORD
== END 2025-08-30 18:15 | disposition home health service (06) | DRG 602 ==
LOC: HO.ED 11:27 → HO.EDOVER 11:50 → HO.S3 17:29
PROVIDERS: Admitting Provider Nurse Practitioner Acute Care; Emergency Provider Student in an Organized Health Care Education/Training Program; Visit Provider Hospitalist
DX: L03.116 Cellulitis of left lower limb (principal); G92.8 Other toxic encephalopathy; N39.0 Urinary tract infection, site not specified; Z68.41 Body mass index [BMI] 40.0-44.9, adult; L03.115 Cellulitis of right lower limb; E03.9 Hypothyroidism, unspecified; I10 Essential (primary) hypertension; E86.0 Dehydration; J45.20 Mild intermittent asthma, uncomplicated; E66.813 Obesity, class 3; I89.0 Lymphedema, not elsewhere classified; Z79.82 Long term (current) use of aspirin; Z79.890 Hormone replacement therapy; Z79.899 Other long term (current) drug therapy
CPT/HCPCS: 36415; 70450; 71045; 80048; 80053; 81001; 82140; 82803; 82947; 83605; 83690; 83880; 84443; 85025; 85027; 87040; 87086; 92610; 93005; 97162; 99285; J0696; J1644; J3360

== ENCOUNTER → 2025-08-28 08:44 | Outpatient (BNV) | payer OTHER, SELFPAY | PROVIDERS: Admitting Provider Nurse Practitioner Acute Care; Emergency Provider Student in an Organized Health Care Education/Training Program; Visit Provider Internal Medicine Cardiovascular Disease | DX: R94.31 Abnormal electrocardiogram [ECG] [EKG] (principal); R41.82 Altered mental status, unspecified | CPT/HCPCS: 93010 ==

== ENCOUNTER → 2025-08-28 08:44 | Outpatient (BNV) | payer OTHER, SELFPAY | PROVIDERS: Emergency Provider Student in an Organized Health Care Education/Training Program; Visit Provider Radiology Diagnostic Radiology | DX: R41.82 Altered mental status, unspecified (principal); J84.9 Interstitial pulmonary disease, unspecified | CPT/HCPCS: 70450; 71045 ==

== ENCOUNTER → 2025-08-28 11:49 | Outpatient (BNV) | payer OTHER, SELFPAY | PROVIDERS: Admitting Provider Nurse Practitioner Acute Care; Emergency Provider Student in an Organized Health Care Education/Training Program; Visit Provider Hospitalist | DX: I10 Essential (primary) hypertension (principal); E03.9 Hypothyroidism, unspecified; N39.0 Urinary tract infection, site not specified; D64.9 Anemia, unspecified; G93.40 Encephalopathy, unspecified; R60.0 Localized edema; I89.0 Lymphedema, not elsewhere classified | CPT/HCPCS: 99232 ==

== ENCOUNTER 2025-09-12 04:36 | Inpatient (IN) | payer OTHER, SELFPAY ==
--- OUTSIDE RECORDS SUMMARY | 2024-04-26 10:15 | XMS_ITS ---
Author Organization [facility] Address [address] [place] [address] Care Team Providers Care Store Shopper Name Role Phone Raven Lyons Primary Care Provider Bibi Flores Unavailable [phone] Medications Medication SIG (Take, Route, Frequency, Duration) Notes Start Date End Date Status hydrOXYzine HCl 25 MG 1 tablet as needed Orally Active OXcarbazepine 150 Mg AM/ 300 mg PM Orally Twice a day Active Levothyroxine Sodium 112 MCG Orally Once a day Active buPROPion HCl 300mg 1 daily Active Vitamin D 1000 UNIT Orally Active ARIPiprazole 5 MG Orally Once a day Active Multivitamin once a day Active Tylenol 500 mg Activ e Torsemide 20 MG as directed Orally Active Aspir-81 Once a day Active Orthopedic Extra Depth Shoes With Custom Heat Molded Multidensity Innersoles as directed Wear Daily; Duration: as needed 07/08/2022 Active Losartan Potassium 100 MG 1 tablet Orally Once a day; Duration: 30 day(s) Active Trelegy Ellipta Acti ve Adderall Active Farxiga Active Chlorthalidone 25 MG Orally Once a day Not-Taking Atorvastatin Calcium 80 MG Orally 1 @ hs Not-Taking Losartan Potassium 100 MG Orally Once a day Not-Taking Ciclopirox Olamine 0.77 % 1 application to affected area Externally to feet Twice a day; Duration: 30 days Not-Taking baclofin 10 mg once a day Not- Taking metFORMIN HCl Not-Ta lyle Vitamin B 12 1,000mcg Not-Taking Advair HFA 230-21 MCG/ACT Inhalation Twice a day Not-Taking Clotrimazole-Betametha sone 1-0.05 % 1 application Externally Twice a day; Duration: 30 days 09/02/2019 Not-Taking Prazosin HCl 2 MG 2 capsules @ HS Orally Not-Taking Baclofen 10 MG/20ML as directed Intrathecal Not-Taking Clopidogrel Bisulfate 75 MG Orally Once a day Not-Taking Ketoconazole 2 % APPLY DAILY TO SKIN TO AFFECTED AREA EVERY DAY FOR 30 DAYS; Duration: 30 Active Metoprolol Succinate 25 MG Orally 2 x a day Not-Taking Terbinafine HCl 1 % 1 application Externally Once a day; Duration: 30 days 10/07/2023 Not-Taking Lotrimin AF 2 % 1 application Externally Twice a day; Duration: 14 day(s) 09/18/2021 Active Medrol 4 MG as directed Orally 09/18/2021 Active Gabapentin 300 MG 1 capsule Orally Twice a day; Duration: 30 days 2 a day 3 at night 09/30/2021 Not-Taking MRI . . . Left foot WO contrast Dx Metatarsalgia of left foot - M77.42 09/23/2021 Active traMADol HCl 50 MG 1 tablet as needed Orally Every 6 hours; Duration: 14 days 09/30/2021 Active Carvedilol 25 MG 1 tablet with food Orally Twice a day; Duration: 30 day(s) Active Ciclopirox Olamine 0.77 % 1 application to affected area Externally to feet Twice a day; Duration: 30 days Active Ciclopirox Olamine 0.77 % 1 application to affected area Externally Twice a day to effected areas on feet; Duration: 30 days 04/12/2021 Active Crestor 5 MG Orally Active Hydrocortisone 2.5 % as directed Externally to feet Twice a day; Duration: 30 days Active Estradiol Active Nystatin 850942 UNIT/GM Externally Active Encounters Encounter Location Date Provider Diagnosis [facility] [place] [address] [place] [address] 04/26/2024 Bibi Siddiqi Plan Of Treatment Next Appt Details Provider Name:Bibi whitaker, 10/25/2025 02:00:00 PM, [address] [place], [address], Progress Notes * Sharon NUGENT RDOB: [birth year] (75 yo F)Acc No.[id number]:04/26/2024 Progress Note Patient: Sharon IRWIN Provider: Ryne Siddiqi DPM :1950 A ge:74 Y S ex:Female Date:04/26/2024 Address:[address] [place] [address], [address], [facility] Pcp:Raven Lyons Subjective: * Chief Complaints: * * HPI: A t Risk footcare: Pt States Last PCP Visit: Sumeet ate: 1 * Medical History: * Medications: T aking Adderall , Taking Farxiga , Taking Losartan Potassium 100 MG Tablet 1 tablet Orally Once a day , Taking Trelegy Ellipta , Taking Torsemide 20 MG Tablet as directed Orally , Taking Aspir-81 Once a day , Taking Multivitamin once a day , Taking Tylenol 500 mg , Taking ARIPiprazole 5 MG Tablet Orally Once a day , Taking Levothyroxine Sodium 112 MCG Tablet Orally Once a day , Taking hydrOXYzine HCl 25 MG Tablet 1 tablet as needed Orally , Taking OXcarbazepine 150 Mg AM/ 300 mg PM Tablet Orally Twice a day , Taking buPROPion HCl 300mg 1 daily , Taking Vitamin D 1000 UNIT Tablet Orally , Taking Estradiol Cream , Taking Nystatin 921681 UNIT/GM Powder Externally , Taking Crestor 5 MG Tablet Orally , Taking Hydrocortisone 2.5 % Cream as directed Externally to feet Twice a day , Taking Ciclopirox Olamine 0.77 % Cream 1 application to affected area Externally Twice a day to effected areas on feet , Taking Carvedilol 25 MG Tablet 1 tablet with food Orally Twice a day , Taking Ciclopirox Olamine 0.77 % Cream 1 application to affected area Externally to feet Twice a day , Taking Lotrimin AF 2 % Aerosol 1 application Externally Twice a day , Taking Medrol 4 MG Tablet Therapy Pack as directed Orally , Taking MRI . . . . Left foot WO contrast Dx Metatarsalgia of left foot - M77.42 , Taking traMADol HCl 50 MG Tablet 1 tablet as needed Orally Every 6 hours , Taking Ketoconazole 2 % Cream APPLY DAILY TO SKIN TO AFFECTED AREA EVERY DAY FOR 30 DAYS , Taking Orthopedic Extra Depth Shoes With Custom Heat Molded Multidensity Innersoles as directed Wear Daily , Not-Taking/PRN Gabapentin 300 MG Capsule 1 capsule Orally Twice a day , Notes to Pharmacist: 2 a day 3 at night, Not-Taking/PRN Terbinafine HCl 1 % Cream 1 application Externally Once a day , Not-Taking/PRN Metoprolol Succinate 25 MG Capsule ER 24 Hour Sprinkle Orally 2 x a day , Not-Taking/PRN Clopidogrel Bisulfate 75 MG Tablet Orally Once a day , Not-Taking/PRN Baclofen 10 MG/20ML Solution as directed Intrathecal , Not-Taking/PRN Advair HFA 230-21 MCG/ACT Aerosol Inhalation Twice a day , Not-Taking/PRN metFORMIN HCl , Not-Taking/PRN Vitamin B 12 1,000mcg , Not-Taking/PRN Clotrimazole-Betamethasone 1-0.05 % Cream 1 application Externally Twice a day , Not-Taking/PRN Prazosin HCl 2 MG Capsule 2 capsules @ HS Orally , Not-Taking/PRN Ciclopirox Olamine 0.77 % Cream 1 application to affected area Externally to feet Twice a day , Not-Taking/PRN baclofin 10 mg once a day , Not-Taking/PRN Losartan Potassium 100 MG Tablet Orally Once a day , Not- Taking/PRN Chlorthalidone 25 MG Tablet Orally Once a day , Not-Taking/PRN Atorvastatin Calcium 80 MG Tablet Orally 1 @ hs Objective: * Vitals: Assessment: Plan: * Treatment: * Images: * The named appointment provid er may or may not be the originator of this progress note, and it is not deemed complete until electronically signed by the appointment provider. Sign off status: Pending * Provider: Ryne Siddiqi DPM Date: 0 04/26/2024 Generated for Lucero Urbina/Bebeto on: 11/13/2024 05:47 AM EST History and Physical Notes * HPI (History of Present Illness) Category Sub-Category Detail Notes Category Not es At Risk footcare Pt States Last PCP Visit: Date:: 06/30/20 23
--- OUTSIDE RECORDS SUMMARY | 2024-10-07 06:00 | XMS_ITS ---
Author Organization [facility] Address [address] [place] [address] Care Team Providers Care Hydraulic Controls Technician Name Role Phone Raven Lyons Primary Care Provider Bibi Flores Unavailable [phone] Medications Medication SIG (Take, Route, Frequency, Duration) Notes Start Date End Date Status Losartan Potassium 100 MG Orally Once a day Not-Taking Chlorthalidone 25 MG Orally Once a day Not-Taking Atorvastatin Calcium 80 MG Orally 1 @ hs Not-Taking Ciclopirox Olamine 0.77 % 1 application to affected area Externally to feet Twice a day; Duration: 30 days Not-Taking baclofin 10 mg once a day Not- Taking Clotrimazole-Betametha sone 1-0.05 % 1 application Externally Twice a day; Duration: 30 days 09/02/2019 Not-Taking Prazosin HCl 2 MG 2 capsules @ HS Orally Not-Taking Advair HFA 230-21 MCG/ACT Inhalation Twice a day Not-Taking metFORMIN HCl Not-Ta lyle Vitamin B 12 1,000mcg Not-Taking Terbinafine HCl 1 % 1 application Externally Once a day; Duration: 30 days 10/07/2023 Not-Taking Metoprolol Succinate 25 MG Orally 2 x a day Not-Taking Clopidogrel Bisulfate 75 MG Orally Once a day Not-Taking Baclofen 10 MG/20ML as directed Intrathecal Not-Taking Gabapentin 300 MG 1 capsule Orally Twice a day; Duration: 30 days 2 a day 3 at night 09/30/2021 Not-Taking Ketoconazole 2 % APPLY DAILY TO SKIN TO AFFECTED AREA EVERY DAY FOR 30 DAYS; Duration: 30 Active Orthopedic Extra Depth Shoes With Custom Heat Molded Multidensity Innersoles as directed Wear Daily; Duration: as needed 07/08/2022 Active Medrol 4 MG as directed Orally 09/18/2021 Not-Taking MRI . . . Left foot WO contrast Dx Metatarsalgia of left foot - M77.42 09/23/2021 Not-Taking traMADol HCl 50 MG 1 tablet as needed Orally Every 6 hours; Duration: 14 days 09/30/2021 Active Hydrocortisone 2.5 % as directed Externally to feet Twice a day; Duration: 30 days Active Ciclopirox Olamine 0.77 % 1 application to affected area Externally Twice a day to effected areas on feet; Duration: 30 days 04/12/2021 Active Carvedilol 25 MG 1 tablet with food Orally Twice a day; Duration: 30 day(s) Active Ciclopirox Olamine 0.77 % 1 application to affected area Externally to feet Twice a day; Duration: 30 days Active Lotrimin AF 2 % 1 application Externally Twice a day; Duration: 14 day(s) 09/18/2021 Active Nystatin 601142 UNIT/GM Externally Active Crestor 5 MG Orally Not-Jeremy ing Estradiol Active buPROPion HCl 300mg 1 daily Active Vitamin D 1000 UNIT Orally Active Tylenol 500 mg Activ e ARIPiprazole 5 MG Orally Once a day Active Levothyroxine Sodium 112 MCG Orally Once a day Active hydrOXYzine HCl 25 MG 1 tablet as needed Orally Active OXcarbazepine 150 Mg AM/ 300 mg PM Orally Twice a day Active Multivitamin once a day Active Aspir-81 Once a day Active Trelegy Ellipta Not- Taking Torsemide 20 MG as directed Orally Active Losartan Potassium 100 MG 1 tablet Orally Once a day; Duration: 30 day(s) Active Adderall Active Farxiga Active Encounters Encounter Location Date Provider Diagnosis [facility] [address] [address] 10/07/2024 Bibi Siddiqi Plan Of Treatment Next Appt Details Provider Name:Bibi whitaker, 10/25/2025 02:00:00 PM, [address] [place] [address], [address], Progress Notes * Sharon NUGENT RDOB: [birth year] (75 yo F)Acc No.[id number]:10/07/2024 Progress Note Patient: Sharon IRWIN Provider: Ryne Siddiqi DPM :1950 A ge:74 Y S ex:Female Date:10/07/2024 Address:[address] [place] [address], [facility] [address], [place] [id number] Pcp:Raven Lyons Subjective: * Chief Complaints: * * HPI: A t Risk footcare: Pt States Last PCP Visit: Sumeet ate: 1 * Medical History: * Medications: T aking Adderall , Taking Farxiga , Taking Losartan Potassium 100 MG Tablet 1 tablet Orally Once a day , Taking Torsemide 20 MG Tablet as [...] , Taking Estradiol Cream , Taking Nystatin 277015 UNIT/GM Powder Externally , Taking Hydrocortisone 2.5 % Cream as [...] application Externally Twice a day , Taking traMADol HCl 50 MG Tablet 1 tablet as needed Orally Every 6 hours , Taking Ketoconazole 2 % Cream APPLY DAILY TO SKIN TO AFFECTED AREA EVERY DAY FOR 30 DAYS , Taking Orthopedic Extra Depth Shoes With Custom Heat Molded Multidensity Innersoles as directed Wear Daily , Not-Taking/PRN Trelegy Ellipta , Not-Taking/PRN Crestor 5 MG Tablet Orally , Not-Taking/PRN Medrol 4 MG Tablet Therapy Pack as directed Orally , Not-Taking/PRN MRI . . . . Left foot WO contrast Dx Metatarsalgia of left foot - M77.42 , Not-Taking/PRN Gabapentin 300 MG Capsule 1 capsule Orally Twice a day , Notes to Pharmacist: 2 a day 3 at night, Not- Taking/PRN Terbinafine HCl 1 % Cream 1 application Externally Once a day , Not-Taking/PRN Metoprolol Succinate 25 MG Capsule ER 24 Hour Sprinkle Orally 2 x a day , Not-Taking/PRN Clopidogrel Bisulfate 75 MG Tablet Orally Once a day , Not- Taking/PRN Baclofen 10 MG/20ML Solution as directed Intrathecal [...] Tablet Orally Once a day , Not-Taking/PRN Chlorthalidone 25 MG Tablet Orally Once a [...] * Provider: Ryne Siddiqi DPM Date: 0 10/07/2024 Generated for Lucero porter/Day/Bebeto on: 11/13/2024 05:46 AM EST History and Physical Notes * HPI (History of Present Illness) Category Sub-Category Detail Notes Category Not es At Risk footcare Pt States Last PCP Visit: Date:: 06/30/20 23
--- OUTSIDE RECORDS SUMMARY | 2024-10-07 09:00 | XMS_ITS ---
Author Organization [facility] Address [address] [place] [address] Care Team Providers Care Beading Sawyer Name Role Phone Raven Lyons Primary Care Provider Bibi Flores [phone] Encounters Encounter Location Date Provider Diagnosis [facility] [address] [place] [address] 10/07/2024 Bibi Siddiqi Plan Of Treatment Next Appt Details Provider Name:Bibi whitaker, 10/25/2025 02:00:00 PM, [address] [place], [address], Progress Notes * Sharon NUGENT RDOB: [birth year] (75 yo F)Acc No.[id number]:10/07/2024 Progress Note Patient: Sharon IRWIN Provider: Ryne Siddiqi DPM :1950 A ge:74 Y S ex:Female Date:10/07/2024 Address:[address] [facility], [address], [place], [place] Pcp:Raven Lyons Subjective: * Chief Complaints: * [...] 10/07/2024 Generated for Lucero porter/Day/Bebeto on: 1 11/13/2024 05:45 AM EST
--- OUTSIDE RECORDS SUMMARY | 2024-10-25 09:30 | XMS_ITS ---
Author Organization [facility] Address [address] [place] [address] Care Team Providers Care Planer Feeder Name Role Phone Raven Lyons Primary Care Provider Bibi Flores Unavailable [phone] Medications Medication SIG (Take, Route, Frequency, Duration) [...] Crestor 5 MG Orally Not-Jeremy ing Nystatin 435775 UNIT/GM Externally Active Estradiol Active Levothyroxine Sodium [...] Not-Taking Encounters Encounter Location Date Provider Diagnosis [facility] [place] [address] [place] [address] 10/25/2024 Bibi Siddiqi Plan Of Treatment Next Appt Details Provider Name:Bibi whitaker, 10/25/2025 02:00:00 PM, [address] [place] [address], [phone], Progress Notes * Sharon NUGENT RDOB: [birth year] (75 yo F)Acc No.[id number]:10/25/2024 Progress Note Patient: Sharon IRWIN Provider: Ryne Siddiqi DPM :1950 A ge:74 Y S ex:Female Date:10/25/2024 Address:[address] [place] [address], [facility] [address], [place] [id number] Pcp:Raven Lyons Subjective: * Chief Complaints: * [...] , Taking Estradiol Cream , Taking Nystatin 129923 UNIT/GM Powder Externally , Taking Hydrocortisone 2.5 [...] 0 10/25/2024 Generated for Lucero porter/Day/Bebeto on: 11/13/2024 05:47 AM EST History and Physical Notes * HPI (History of Present Illness) Category Sub-Category Detail Notes Category Not es At Risk footcare Pt States Last PCP Visit: Date:: 06/30/20 23
--- OUTSIDE RECORDS SUMMARY | 2025-04-26 10:00 | XMS_ITS ---
Author Organization [facility] Address [address] [place] [address] Care Team Providers Care Recruitment Assistant Name Role Phone Raven Lyons Primary Care Provider Bibi Flores [phone] Encounters Encounter Location Date Provider Diagnosis [facility] [address] [place] [address] 04/26/2025 Bibi Siddiqi Plan Of Treatment Next Appt Details Provider Name:Bibi whitaker, 10/25/2025 02:00:00 PM, [address] [place], [address], Progress Notes * Sharon NUGENT RDOB: [birth year] (75 yo F)Acc No.[id number]:04/26/2025 Progress Note Patient: Sharon IRWIN Provider: Ryne Siddiqi DPM :1950 A ge:75 Y S ex:Female Date:04/26/2025 Address:[address] [facility], [address], [place], [place] Pcp:Raven Lyons Subjective: * Chief Complaints: * [...] 04/26/2025 Generated for Lucero porter/Day/Bebeto on: 1 11/13/2024 05:46 AM EST
--- OUTSIDE RECORDS SUMMARY | 2025-06-23 07:30 | XMS_ITS ---
Author Organization [facility] Address [address] [place] [address] Care Team Providers Care Professional Development Director Name Role Phone Raven Lyons Primary Care Provider Bibi Flores Unavailable [phone] Medications Medication SIG (Take, Route, Frequency, Duration) Notes Start Date End Date Status Chlorthalidone 25 MG Orally Once a day [...] Not-Ta lyle Vitamin B 12 1,000mcg Not-Taking Clopidogrel Bisulfate 75 MG Orally Once a day Not-Taking Terbinafine HCl 1 % 1 application Externally Once a day; Duration: 30 days 10/07/2023 Not-Taking Metoprolol Succinate 25 MG Orally 2 x a day Not-Taking Gabapentin 300 MG 1 capsule Orally Twice a day; Duration: 30 days 2 a day 3 at night 09/30/2021 Not-Taking Baclofen 10 MG/20ML as directed Intrathecal Not-Taking Crestor 5 MG Orally Not-Jeremy ing Medrol 4 MG as directed Orally 09/18/2021 Not-Taking MRI . . . Left foot WO contrast Dx Metatarsalgia of left foot - M77.42 09/23/2021 Not-Taking Orthopedic Extra Depth Shoes With Custom Heat Molded Multidensity Innersoles as directed Wear Daily; Duration: as needed 07/08/2022 Active Trelegy Ellipta Not- Taking Carvedilol 25 MG 1 tablet with food Orally Twice a day; Duration: 30 day(s) Active Ciclopirox Olamine 0.77 % 1 application to affected area Externally to feet Twice a day; Duration: 30 days Active Lotrimin AF 2 % 1 application Externally Twice a day; Duration: 14 day(s) 09/18/2021 Active traMADol HCl 50 MG 1 tablet as needed Orally Every 6 hours; Duration: 14 days 09/30/2021 Active Ketoconazole 2 % APPLY DAILY TO SKIN TO AFFECTED AREA EVERY DAY FOR 30 DAYS; Duration: 30 Active Estradiol Active Nystatin 780404 UNIT/GM Externally Active Hydrocortisone 2.5 % as directed Externally to feet Twice a day; Duration: 30 days Active Ciclopirox Olamine 0.77 % 1 application to affected area Externally Twice a day to effected areas on feet; Duration: 30 days 04/12/2021 Active Vitamin D 1000 UNIT Orally Active ARIPiprazole 5 MG Orally Once a day Active Levothyroxine Sodium 112 MCG Orally Once a day Active hydrOXYzine HCl 25 MG 1 tablet as needed Orally Active OXcarbazepine 150 Mg AM/ 300 mg PM Orally Twice a day Active buPROPion HCl 300mg 1 daily Active Tylenol 500 mg Activ e Losartan Potassium 100 MG 1 tablet Orally Once a day; Duration: 30 day(s) Active Torsemide 20 MG as directed Orally Active Aspir-81 Once a day Active Multivitamin once a day Active Adderall Active Farxiga Active Encounters Encounter Location Date Provider Diagnosis [facility] [address] [address] 06/23/2025 Bibi Siddiqi Plan Of Treatment Next Appt Details Provider Name:Bibi whitaker, 10/25/2025 02:00:00 PM, [address] [place] [address], [address], Progress Notes * Sharon NUGENT RDOB: [birth year] (75 yo F)Acc No.[id number]:06/23/2025 Progress Note Patient: Sharon IRWIN Provider: Ryne Siddiqi DPM :1950 A ge:75 Y S ex:Female Date:06/23/2025 Address:[address] [place] [address], [facility] [address], [place] [id number] Pcp:Raven Lyons Subjective: * Chief Complaints: * * HPI: A t Risk footcare: Pt States Last PCP Visit: Sumeet ate: 0 02/08/2025 * Medical History: * Medications: T aking [...] , Taking Estradiol Cream , Taking Nystatin 701689 UNIT/GM Powder Externally , Taking Hydrocortisone 2.5 [...] Pending * Provider: Ryne Siddiqi DPM Date: 1 Generated for Lucero porter/Day/Bebeto on: 11/13/2024 05:45 AM EST History and Physical Notes * HPI (History of Present Illness) Category Sub-Category Detail Notes Category Not es At Risk footcare Pt States Last PCP Visit: Date:: 02/09/20 25
--- OUTSIDE RECORDS SUMMARY | 2025-09-09 23:59 | XMS_ITS | Continuity of Care Document ---
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 Name Role Phone Joy CLAUDIO, Raven Vieyra Primary Care Physic claire Encounter [facility] Date(s): 08/10/25 - 09/09/25 [facility] [address] [place], [place] [address] Encounter Type: Triage Allergies, Adverse Reactions, Alerts Substance Criticality Severity Reaction Reaction Severity Status codeine Active lisinopril Active Claritin Active Seroquel Active Zoloft Active Immunizations Given and Recorded Vaccine Date Status Refusal Reason influenza virus vaccine, inactivated 1 08/15/25 Gi maricarmen influenza virus vaccine, inactivated 06/17/24 Jostin rded influenza virus vaccine, inactivated 2 06/23/23 Gi maricarmen influenza virus vaccine, inactivated 06/07/21 Jostin rded influenza virus vaccine, inactivated 3 05/28/18 Re corded influenza virus vaccine, inactivated 07/01/17 Jostin rded influenza virus vaccine, inactivated 07/28/16 Give n influenza virus vaccine, inactivated 4 06/14/15 Re corded influenza virus vaccine, inactivated 5 06/29/14 Gi maricarmen RSV vaccine preF3, recombinant 10/03/24 Recorded Influenza Virus Vaccine (oldterm) 08/22/22 Recorde d Influenza Virus Vaccine (oldterm) 07/04/20 Recorde d Influenza Virus Vaccine (oldterm) 06/04/19 Recorde d [id number] bivalent booster vax 08/22/22 Recorded SARS-CoV-2 (COVID-19) mRNA-1273 vaccine 01/02/22 R ecorded SARS-CoV-2 (COVID-19) mRNA-1273 vaccine 07/10/21 R ecorded SARS-CoV-2 (COVID-19) mRNA-1273 vaccine 12/31/20 R ecorded SARS-CoV-2 (COVID-19) mRNA-1273 vaccine 6 12/02/20 Recorded pneumococcal 23-valent vaccine 11/30/18 Recorded pneumococcal 23-valent vaccine 08/03/14 Given zoster vaccine, inactivated 7 05/05/18 Given zoster vaccine, inactivated 8 01/10/18 Recorded zoster vaccine, inactivated 01/09/18 Recorded pneumococcal 13-valent vaccine 9 11/18/16 Given pneumococcal 13-valent vaccine 01/21/16 Given Zoster Vaccine Live 10 06/14/15 Recorded Fluzone (oldterm) 11 08/03/14 Given Diphtheria/Tet/Pertussis, Acel (oldterm) 04/03/11 Given tetanus-diphtheria toxoids (Td) 04/02/04 Recorded 1Result Comment: [facility]: [phone] 2Result Comment: [facility] [id number] 3Result Comment: [06/01/2018] jessica 4Result Comment: [06/15/2015] jessica 5Admin Note: DECLINED 6Result Comment: dose #1 7Admin Note: Jessica 8Result Comment: [03/18/2018] nickit 9Admin Note: Jessica 10Result Comment: [06/15/2015] nickit 11Admin Note: CDC info given Medications Adjustable toilet safety frame with arms Adjustable toilet safety frame with arms, See Instructions, # 1 each, Refills 0, Tot. Refills 0, Maintenance, R26.89 M47.817, 09/01/24 12:55:00 PM EST, R26.89; M47.817, Supply Start Date: 09/01/24 Status: Ordered Medication Dispense Status: Completed Quantity: 1.0 Unit: each Total Allowed Fills: 1 Fills Dispensed: 0 Indications: Other abnormalities of gait and mobility; Spondylosis without myelopathy or radiculopathy, lumbosacral region; Albuterol (Eqv-ProAir HFA) 90 mcg/inh inhalation aerosol 2 puffs, Inhalation, Every 6 hours, # 8.5 Gm, 6 Refills, Maintenance, 08/23/24 7:55:00 AM EST, [facility], 25, INHALE 2 PUFFS BY MOUTH EVERY 6 HOURS, 162, cm, 07/15/24 10:31:00 EDT, Height, 110.7, kg, 05/24/24 10:13:00 EDT, Dry Weight Start Date: 08/23/24 Status: Ordered Medication Dispense Status: Completed Quantity: 8.5 Unit: g Total Allowed Fills: 1 Fills Dispensed: 0 allopurinol 100 mg oral tablet 1, tablet, By Mouth, Daily, # 90 tablet, Refills 3, Maintenance, 07/26/24 12:10:00 PM EST, Route to Pharmacy Electronically, [facility], 162, cm, 07/15/24 10:31:00 EDT, Height, 110.7,kg, 05/24/24 10:13:00 EDT, Dry Weight Start Date: 07/26/24 Status: Ordered Medication Dispense Status: Completed Quantity: 90.0 Unit: tablet Total Allowed Fills: 1 Fills Dispensed: 0 amLODIPine 10 mg oral tablet 1 tablet, By Mouth, Daily, # 90 tablet, 3 Refills, Maintenance, 06/12/25 9:43:00 AM EDT, [id number], 162, cm, 06/06/25 10:09:00 EDT, Height, 114.9, kg, 03/15/25 14:52:00 EDT, Dry Weight Start Date: 06/12/25 Status: Ordered Medication Dispense Status: Completed Quantity: 90.0 Unit: tablet Total Allowed Fills: 1 Fills Dispensed: 0 ARIPiprazole 10 mg oral tablet 10 mg, 1, tablet, By Mouth, Daily, # 90 tablet, Refills 3, Tot. Refills 3, Maintenance, 07/16/23 4:34:00 PM EDT, Route to Pharmacy Electronically, [facility], Partial fill upon patient request if the prescription is for a schedule II opioid drug., 162, cm, 06/23/23 15:01:00 EDT, Height, 120.9, kg, 06/23/23 14:43:00 EDT, Dry Weight Start Date: 07/16/23 Status: Ordered Medication Dispense Status: Completed Quantity: 90.0 Unit: tablet Total Allowed Fills: 4 Fills Dispensed: 0 Indications: Anxiety disorder, unspecified; aspirin 81 mg oral tablet, chewable 1 tablet, By Mouth, Daily, # 90 tablet, 11 Refills, Maintenance, 08/15/25 12:04:00 PM EST, [facility]/pharmacy #[id number], 162, cm, 08/15/25 11:35:00 EST, Height, 114.9, kg, 03/15/25 14:52:00 EDT, Dry Weight Start Date: 08/15/25 Status: Ordered Medication Dispense Status: Completed Quantity: 90.0 Unit: tablet Total Allowed Fills: 12 Fills Dispensed: 0 baclofen 10 mg oral tablet See Instructions, TAKE ONE TABLET BY MOUTH once a day, # 90 tablet, Refills 0, Maintenance, 02/19/23 2:24:00 PM EDT, Instructions Replace Required Details, Route to Pharmacy Electronically, [facility], 160, cm, 02/19/23 13:19:00 EDT, Height, 132.72, kg, 06/04/21 14:28:00 EDT, Dry Weight Start Date: 02/19/23 Status: Ordered Medication Dispense Status: Completed Quantity: 90.0 Unit: tablet Total Allowed Fills: 1 Fills Dispensed: 0 budesonide-formoterol 160 mcg-4.5 mcg/inh inhalation aerosol with adapter 2, puffs, Inhalation, 2 times a day, # 10.2 each, Refills 11, Tot. Refills 11, Maintenance, :56:00 PM EDT, Route to Pharmacy Electronically, [id number], [facility]/pharmacy #[id number], 162, cm, 05/10/25 16:25:00 EDT, Height, 114.9, kg, 03/15/25 14:52:00 EDT, Dry Weight Start Date: 05/12/25 Status: Ordered Medication Dispense Status: Completed Quantity: 10.2 Unit: each Total Allowed Fills: 12 Fills Dispensed: 0 buPROPion 300 mg/24 hours (XL) oral tablet, extended release 1 tablet, By Mouth, Daily in AM, # 90 tablet, 3 Refills, Maintenance, 07/15/23 5:59:00 PM EDT, [facility], 162, cm, 06/23/23 15:01:00 EDT, Height, 120.9, kg, 06/23/23 14:43:00 EDT, Dry Weight Start Date: 07/15/23 Status: Ordered Medication Dispense Status: Completed Quantity: 90.0 Unit: tablet Total Allowed Fills: 4 Fills Dispensed: 0 carvedilol 25 mg oral tablet 1, tablet, By Mouth, 2 times a day, # 180 tablet, Refills 3, Maintenance, 06/12/25 12:18:00 PM EDT, Route to Pharmacy Electronically, [facility], 162, cm, 06/06/25 10:09:00 EDT, Height, 114.9, kg, 03/15/25 14:52:00 EDT, Dry Weight Start Date: 06/12/25 Status: Ordered Medication Dispense Status: Completed Quantity: 180.0 Unit: tablet Total Allowed Fills: 1 Fills Dispensed: 0 clotrimazole 1% topical cream See Instructions, APPLY TO AFFECTED AREA TOPICALLY TWO TIMES A DAY TO RIGH UPPER THIGH/HIP AREA, # 90 Gm, 11 Refills, Maintenance, 04/20/23 7:44:00 AM EDT, [facility], 60, APPLY TO AFFECTED AREA TOPICALLY TWO TIMES A DAY TO RIGH UPPER THIGH/HIP AREA, 160, cm, 04/13/23 13:19:00 EDT, Height, 115.6, kg, 04/13/23 12:59:00 EDT, Dry Weight Start Date: 04/20/23 Status: Ordered Medication Dispense Status: Completed Quantity: 90.0 Unit: g Total Allowed Fills: 1 Fills Dispensed: 0 CPAP Machine AutoCPAP 10-15, Maintenance, 05/19/17 12:37:16 PM EDT, Compound Start Date: 05/19/17 Status: Ordered Medication Dispense Status: Completed Total Allowed Fills: 1 Fills Dispensed: 0 diclofenac 1% topical gel 1 application, Topically, 4 times a day, # 100 Gm, 3 Refills, Maintenance, 01/13/24 3:04:00 PM EDT, Gel, [facility]/pharmacy #[id number], Partial fill upon patient request if the prescription is for a schedule II opioid drug., 162, cm, 01/13/24 14:36:00 EDT, Height, 113.5, kg, 11/27/23 13:13:00 EST, Dry Weight Start Date: 01/13/24 Status: Ordered Medication Dispense Status: Completed Quantity: 100.0 Unit: g Total Allowed Fills: 4 Fills Dispensed: 0 electric recliner chair electric recliner chair, See Instructions, # 1 each, Refills 0, Tot. Refills 0, Maintenance, R60.0,05/08/25 7:54:00 AM EDT, Supply Start Date: 05/08/25 Status: Ordered Medication Dispense Status: Completed Quantity: 1.0 Unit: each Total Allowed Fills: 1 Fills Dispensed: 0 Indications: Localized edema; estradiol 0.1 mg/g vaginal cream 0 Refills, Maintenance, 04/10/22 3:02:00 PM EDT, Partial fill upon patient request if the prescription is for a schedule II opioid drug. Start Date: 04/10/22 Status: Ordered Medication Dispense Status: Completed Total Allowed Fills: 1 Fills Dispensed: 0 famotidine 20 mg oral tablet 1, tablet, By Mouth, Daily before dinner, # 90 tablet, Refills 3, Maintenance, 06/01/25 9:45:00 AM EDT, Route to Pharmacy Electronically, [id number], 162, cm, 05/10/25 16:25:00 EDT, Height, 114.9, kg, 03/15/25 14:52:00 EDT, Dry Weight Start Date: 06/01/25 Status: Ordered Medication Dispense Status: Completed Quantity: 90.0 Unit: tablet Total Allowed Fills: 1 Fills Dispensed: 0 Farxiga 10 mg oral tablet 1 tablet, By Mouth, Daily, # 90 tablet, 3 Refills, Maintenance, 08/22/24 8:27:00 AM EST, [id number], 162, cm, 07/15/24 10:31:00 EDT, Height, 110.7, kg, 05/24/24 10:13:00 EDT, Dry Weight Start Date: 08/22/24 Status: Ordered Medication Dispense Status: Completed Quantity: 90.0 Unit: tablet Total Allowed Fills: 1 Fills Dispensed: 0 fluticasone 50 mcg/inh nasal spray See Instructions, INSTILL 1 SPRAY IN EACH NOSTRIL TWO TIMES A DAY, # 48 Gm, 10 Refills, Maintenance, 02/10/25 12:04:00 PM EDT, [facility], 90, INSTILL 1 SPRAY IN EACH NOSTRIL TWO TIMES A DAY, 162, cm, 01/31/25 15:06:00 EDT, Height, 111, kg, 01/10/25 12:42:00 EDT, Dry Weight Start Date: 02/10/25 Status: Ordered Medication Dispense Status: Completed Quantity: 48.0 Unit: g Total Allowed Fills: 1 Fills Dispensed: 0 fluvoxaMINE 100 mg oral tablet 1 tablet = 100 mg, By Mouth, Daily at bedtime, # 90 tablet, 3 Refills, 07/15/23 5:58:00 PM EDT, [facility], 162, cm, 06/23/23 15:01:00 EDT, Height, 120.9, kg, 06/23/23 14:43:00 EDT, Dry Weight Start Date: 07/15/23 Status: Ordered Medication Dispense Status: Completed Quantity: 90.0 Unit: tablet Total Allowed Fills: 4 Fills Dispensed: 0 hydrOXYzine hydrochloride 50 mg oral tablet 1 tablet, By Mouth, 3 times a day, PRN NEEDED FOR ITCHING, # 90 tablet, 3 Refills, Maintenance, 08/15/25 12:00:00 PM EST, [facility]/pharmacy #[id number], 162, cm, 08/15/25 11:35:00 EST, Height, 114.9, kg, 03/15/25 14:52:00 EDT, Dry Weight Start Date: 08/15/25 Status: Ordered Medication Dispense Status: Completed Quantity: 90.0 Unit: tablet Total Allowed Fills: 4 Fills Dispensed: 0 ipratropium nasal 21 mcg/inh spray 2 sprays = 42 mcg, Nares, Both, 3 times a day, PRN Other, as needed for runny nose, nasal congestion, or post-nasal drip, # 1 each, 11 Refills, Maintenance, 01/31/25 3:23:00 PM EDT, [place], [facility], Partial fill upon patient request if the prescription is for a schedule II opioid drug., 2 sprays Nares, Both 3 times a day,PRN:Other,Instr:as needed for runny nose, nasal congestion, or post-nasal drip, 162, cm, 01/31/25 15:06:00 EDT, Height, 111, kg, 01/10/25 12:42:00 EDT, Dry Weight Start Date: 01/31/25 Status: Ordered Medication Dispense Status: Completed Quantity: 1.0 Unit: each Total Allowed Fills: 12 Fills Dispensed: 0 Indications: Vasomotor rhinitis; ketoconazole 2% topical cream See Instructions, APPLY TOPICALLY IN BETWEEN TOES TWICE A DAY FOR 3 WEEKS, # 15 Gm, 6 Refills, Maintenance, 10/19/24 11:43:00 AM EST, [facility], 21, APPLY TOPICALLY IN BETWEEN TOES TWICE A DAY FOR 3 WEEKS, 162, cm, 10/14/24 13:20:00 EST, Height, 110.7, kg, 05/24/24 10:13:00 EDT, Dry Weight Start Date: 10/19/24 Status: Ordered Medication Dispense Status: Completed Quantity: 15.0 Unit: g Total Allowed Fills: 1 Fills Dispensed: 0 levothyroxine 150 mcg (0.15 mg) oral tablet 1 tablet, By Mouth, Daily, # 90 tablet, 0 Refills, Maintenance, 09/05/25 2:07:00 PM EST, [facility]/pharmacy #[id number], 162, cm, 08/15/25 11:35:00 EST, Height, 114.9, kg, 03/15/25 14:52:00 EDT, Dry Weight Start Date: 09/05/25 Status: Ordered Medication Dispense Status: Completed Quantity: 90.0 Unit: tablet Total Allowed Fills: 1 Fills Dispensed: 0 Lipo-lymphedema , Juso's sensation chace's compression grade 15/20; size XL Lipo-lymphedema , Juso's sensation chace's compression grade 15/20; size XL, See Instructions, # 2 each, Refills 0, Tot. Refills 0, Maintenance, Lipo-lymphedema , Juso's sensation chace's compressiongrade ; size XL. R60.9, 06/20/24 6:06:00 PM EDT, Supply Start Date: 06/20/24 Status: Ordered Medication Dispense Status: Completed Quantity: 2.0 Unit: each Total Allowed Fills: 1 Fills Dispensed: 0 Indications: Edema, unspecified; losartan 25 mg oral tablet 1 tablet, By Mouth, Daily, # 30 tablet, 3 Refills, Maintenance, 06/26/25 8:10:00 AM EDT, [id number], 162, cm, 06/13/25 14:10:00 EDT, Height, 114.9, kg, 03/15/25 14:52:00 EDT, Dry Weight Start Date: 06/26/25 Status: Ordered Medication Dispense Status: Completed Quantity: 30.0 Unit: tablet Total Allowed Fills: 1 Fills Dispensed: 0 nystatin topical [id number] u/gm cream 1 applicator, Topically, 2 times a day, # 30 Gm, 5 Refills, Maintenance, 08/15/25 12:04:00 PM EST, [facility]/pharmacy #[id number], 1 applicator Topically 2 times a day, 162, cm, 08/15/25 11:35:00 EST, Height, 114.9, kg, 03/15/25 14:52:00 EDT, Dry Weight Start Date: 08/15/25 Status: Ordered Medication Dispense Status: Completed Quantity: 30.0 Unit: g Total Allowed Fills: 6 Fills Dispensed: 0 Peak Flow Meter (Adult) See Instructions, # 1 each, Refills 0, Tot. Refills 0, Maintenance, Full range for Adult, 10/01/20 4:47:00 PM EST, Supply, 165, cm, 07/29/20 10:54:00 EST, Height, 131.6, kg, 07/28/20 4:53:00 EST, Dry Weight Start Date: 10/01/20 Status: Ordered Medication Dispense Status: Completed Quantity: 1.0 Unit: each Total Allowed Fills: 1 Fills Dispensed: 0 Pepto-Bismol 262 mg oral tablet, chewable 2 tablet = 524 mg, Chew, Every hour, PRN as needed for diarrhea, not to exceed 16 tablets/day not to exceed 2 days duration not to exceed 16 tablets/day, # 30 tablet, 1 Refills, Maintenance, 06/16/25 4:26:00 PM EDT, Chew Tablet, [facility]/pharmacy #[id number], Partial fill upon patient request if the prescription is for a schedule II opioid drug., 162, cm, 06/13/25 14:10:00 EDT, Height, 114.9, kg, 03/15/25 14:52:00 EDT, Dry Weight Start Date: 06/16/25 Status: Ordered Medication Dispense Status: Completed Quantity: 30.0 Unit: tablet Total Allowed Fills: 2 Fills Dispensed: 0 Pull ups, XXL Pull ups, XXL, See Instructions, # 100 each, Refills 11, Tot. Refills 11, Maintenance, One three times a day N39.46, 06/13/25 3:17:00 PM EDT, Supply Start Date: 06/13/25 Status: Ordered Medication Dispense Status: Completed Quantity: 100.0 Unit: each Total Allowed Fills: 12 Fills Dispensed: 0 Indications: Mixed incontinence; Rollator Walker Rollator Walker, See Instructions, # 1 Unknown, Refills 0, Tot. Refills 0, Maintenance, Ht: 162cm Wt: 114.9 Kg, 04/21/25 9:31:00 AM EDT, Supply Start Date: 04/21/25 Status: Ordered Medication Dispense Status: Completed Quantity: 1.0 Unit: Unknown Total Allowed Fills: 1 Fills Dispensed: 0 Indications: Other forms of dyspnea; Osteoarthritis of knee, unspecified; rosuvastatin 5 mg oral tablet 1 tablet, By Mouth, Daily, # 90 tablet, 2 Refills, Maintenance, 10/19/24 11:33:00 AM EST, [facility], 162, cm, 10/14/24 13:20:00 EST, Height, 110.7, kg, 05/24/24 10:13:00 EDT, Dry Weight Start Date: 10/19/24 Status: Ordered Medication Dispense Status: Completed Quantity: 90.0 Unit: tablet Total Allowed Fills: 1 Fills Dispensed: 0 simethicone 125 mg oral capsule 1 capsule, By Mouth, 3 times a day after meals, PRN NEEDED FOR, # 90 capsule, 3 Refills, Maintenance, 05/26/25 10:05:00 AM EDT, [facility], 162, cm, 05/10/25 16:25:00 EDT, Height, 114.9, kg, 03/15/25 14:52:00 EDT, Dry Weight Start Date: 05/26/25 Status: Ordered Medication Dispense Status: Completed Quantity: 90.0 Unit: capsule Total Allowed Fills: 1 Fills Dispensed: 0 STANDARD SIZE ROLLATOR WITH SEAT AND STORAGE STANDARD SIZE ROLLATOR WITH SEAT AND STORAGE, See Instructions, # 1 each, Refills 0, Tot. Refills 0, Maintenance, M51.36 M17.12 M16.11, 07/29/24 4:46:00 PM EST, M51.36; M17.12; M16.11, Supply Start Date: 07/29/24 Status: Ordered Medication Dispense Status: Completed Quantity: 1.0 Unit: each Total Allowed Fills: 1 Fills Dispensed: 0 Indications: Unilateral primary osteoarthritis, right hip; Unilateral primary osteoarthritis, left knee; torsemide 20 mg oral tablet 2 tablet, By Mouth, Daily, # 180 tablet, 1 Refills, Maintenance, 07/31/25 7:50:00 AM EST, [id number], 162, cm, 06/13/25 14:10:00 EDT, Height, 114.9, kg, 03/15/25 14:52:00 EDT, Dry Weight Start Date: 07/31/25 Status: Ordered Medication Dispense Status: Completed Quantity: 180.0 Unit: tablet Total Allowed Fills: 1 Fills Dispensed: 0 Vitamin D3 1000 intl units oral tablet 1 tablet, By Mouth, Daily, # 60 tablet, 11 Refills, Maintenance, 06/06/25 12:23:00 PM EDT, [facility], 162, cm, 06/06/25 10:09:00 EDT, Height, 114.9, kg, 03/15/25 14:52:00 EDT, Dry Weight Start Date: 06/06/25 Status: Ordered Medication Dispense Status: Completed Quantity: 60.0 Unit: tablet Total Allowed Fills: 1 Fills Dispensed: 0 Problem List Condition Confirmation Course Effective Dates Status Health Status Informant Alopecia Confirmed Active Atrophic vaginitis Confirmed Active Attention deficit hyperactivity disorder (ADHD) Confirmed Active Binge eating disorder, mild, in partial remission Confirmed Active Cellulitis Confirmed Active Cervical dysplasia Confirmed Active Chronic diastolic heart failure, NYHA class 3 Confirmed Active 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 Active Essential hypertension Confirmed Active GERD (gastroesophageal reflux disease) Confirmed Active Stress incontinence Confirmed Active History of cellulitis Confirmed Active Hospitalization within last 30 days Confirmed Active History of basal cell carcinoma Confirmed Active Hoarseness Confirmed Active Hyperparathyroidism Confirmed Active Primary hypothyroidism Confirmed Active Imbalance Confirmed Active Intertrigo Confirmed Active Lipedema of lower extremity Confirmed Active Lumbosacral spondylosis without myelopathy Confirmed Active HLD (hyperlipidemia) Confirmed Active Asthma, moderate persistent Confirmed Active BRANDON (obstructive sleep apnea) 1 Confirmed Active Osteoarthritis of right hip Confirmed Active Right arm pain Confirmed Active *[facility] [phone] 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 Patel Confirmed Active Medicare annual wellness visit, subsequent Confirmed Active Prediabetes Confirmed Active Primary osteoarthritis of knees, bilateral Confirmed Active Resting tremor Confirmed Active Scoliosis of lumbar spine Confirmed Active Severe obesity Confirmed Active 1likely REM dominant; has seen sleep center; CPAP Social History Social History Type Response Smoking Status Former smoker, quit more than 30 days ago; Other: quit 2014; Number of years: 40; entered on: 02/24/19 Sexual Orientation Self described orien tation: ; Straight or heterosexual Sex Sex Representation Female (finding) Patient Care team information Care Team Personnel Name: Radha Silva RN Position: [facility] RN Member Role: Primary Care Nurse Name: Florecita Hurst RN Position: [facility] RN Member Role: Primary Care Nurse Name: Danilo Orosco RN Position: [facility] SN RN Member Role: Primary Care Nurse Name: Claire Valencia RN Position: [facility] RN Member Role: Primary Care Nurse Name: Raven Hamilton MD, V Position: [facility] Physician - Primary Care Member Role: PCP Address: [address] [place] [address] Telecom: Name: Melly Thomas RN Position: [facility] RN Member Role: Primary Care Nurse Name: Mandie Fofana RN Position: [facility] RN Member Role: Primary Care Nurse Care Team Related Persons Name: ASHISH CASTRO Name: FERCHO BARRERA Name: TEETEE BERGER Name: FERCHO MULLEN Name: WALE TINSLEY Insurance Providers Guarantor name: SERGO BERGER Health Plan Information #: 1 Payer: [employer] Payer Identifier: NA Member Number: [id number] Group Number: [id number] Subscriber Identifier: NA Relationship to Subscriber: self Coverage Type: Medicare Managed Care (Includes Medicare Advantage Plans) Coverage Verification Date: NA Telecom: JUNIOR Address: NA
[2025-09-12] VITALS (8 sets, daily range): BP systolic 114–147; BP diastolic 49–78; PULSE 88–112; RESP 16–22; TEMP 36.6–37.2; O2SAT 94–99; BMI 37.9
--- NOTE | 2025-09-12 | ECG_ITS ---
Test Reason : FALL Blood Pressure : */* mmHG Vent. Rate : 108 BPM Atrial Rate : 108 BPM P-R Int : 198 ms QRS Dur : 84 ms QT Int : 334 ms P-R-T Axes : 54 5 34 degrees QTcB Int : 447 ms Sinus tachycardia Otherwise normal ECG When compared with ECG of 28-Aug-2025 09:58, No significant change was found Referred By: Generic ED Physician Electronically Signed By: JHON BOSE MD
--- NOTE | ~2025-09-12 | XR_ITS ---
EXAMINATION: XR CHEST 2 VIEWS HISTORY: diminished ls COMPARISON: Comparison is made with the prior examination dated 08/28/2025. FINDINGS: AP and lateral views of the chest are submitted. There are low lung volumes. The lungs are clear. There is no pleural effusion, pneumothorax, or pulmonary vascular congestion. The heart is normal in size. There is degenerative disc disease of the spine. XR/XR chest 2V IMPRESSION: Low lung volumes. No acute cardiopulmonary abnormality. Electronically signed by: Giles Caballero MD 09/12/2025 08:04 AM [facility]
--- NOTE | ~2025-09-12 | XR_ITS ---
EXAMINATION: XR KNEE 3 VIEWS RIGHT HISTORY: fall, bruising COMPARISON: Comparison is made with the prior examination dated 04/14/2025. FINDINGS: AP and lateral views of the right knee are submitted. Osseous mineralization is normal. There is no fracture or dislocation. There is severe tricompartmental osteoarthritis with joint space narrowing and osteophyte formation. There is a moderate joint effusion. There is prepatellar soft tissue swelling. XR/XR knee RT 3V IMPRESSION: Prepatellar soft tissue swelling. Moderate joint effusion. Severe tricompartmental osteoarthritis. Electronically signed by: Giles Caballero MD 09/12/2025 08:07 AM [facility]
--- NOTE | ~2025-09-12 | CT_ITS ---
CLINICAL HISTORY: urinary retention, UTI CT abdomen and pelvis without contrast Comparison: CT/SR - CT ABDOMEN PELVIS WO CON - 02/19/22 17:34 EDT Findings: No nephrolithiasis or hydronephrosis. No bladder stone. No consolidation at the lung bases. Severe calcified coronary artery disease. Unremarkable gallbladder. Calcified, degenerated fibroids. 2.2 cm fluid attenuation lesion in the right adnexa could be an ovarian cyst, unchanged. Other solid organs are normal. Small hiatal hernia. No bowel dilation. A normal appendix is identified. Colonic diverticulosis. Proximal descending colon inflamed diverticula with moderate wall thickening beginning of the distal transverse colon and extending to the mid descending colon with mild pericolonic stranding. No fluid collection or free air No aneurysm. Severe calcified atherosclerotic disease. No lymphadenopathy. Fat attenuation lesion in the mesentery of the left lower quadrant measuring 1.6 cm with peripheral calcification, chronic Trace ascites. No acute fracture. Impression: Acute uncomplicated diverticulitis. No urinary tract stone or obstruction. This document has been electronically signed by: Katie Pagan MD on 09/12/2025 19:19:09
--- NOTE | ~2025-09-12 | CT_ITS ---
EXAMINATION: CT HEAD WITHOUT IV CONTRAST HISTORY: Fall. TECHNIQUE: Unenhanced helical CT of the head was performed per standard departmental protocol. Coronal and sagittal reformats of the head were also evaluated. One or more of the following techniques was used for dose reduction: Automated exposure control, adjustment of the mA and/or kV according to patient size, use of iterative reconstruction technique. DLP: 1235 mGy-cm COMPARISON: Comparison is made with the prior examination dated 08/28/2025. FINDINGS: The examination is degraded by patient motion. BRAIN: There is mild prominence of the ventricular system and cortical sulci, consistent with atrophy. Scattered periventricular and subcortical white matter hypodensities are noted which are nonspecific, but often seen in the setting of small vessel ischemic disease. There is no mass effect or midline shift. No intra- or extra-axial fluid collections are identified. SINUSES: The visualized paranasal sinuses are clear. The mastoid air cells and middle ear cavities are well pneumatized. ORBITS: The visualized orbits are unremarkable. BONES/SOFT TISSUES: The extracranial soft tissues are unremarkable. The calvarium is intact. No suspicious lytic or sclerotic lesions. CT/CT head/brain wo IV con IMPRESSION: No acute intracranial abnormality. Electronically signed by: Giles Caballero MD 09/12/2025 08:59 AM [facility]
[2025-09-12 05:05] LABS: Hematocrit 42.8 % (37.0-47.0); Hemoglobin 13.5 g/dl (12.0-16.0); Imm Gran Abs Auto 0.09 X10*3/uL (0.00-0.03); Imm Gran Pct Auto 0.5 % (0.0-0.4); Lymphocytes Absolute Auto 1.2 X10*3/uL (1.2-4.9); MANUAL DIFF FLAG NO; Mean Corpuscular HGB Conc 31.5 g/dl (31.0-35.0); Mean Corpuscular Hemoglobin 26.1 pg (27.0-33.0); Mean Corpuscular Volume 82.8 fL (80.0-98.0); NRBC Abs Auto 0.000 X10*3/uL (0.0-0.012); NRBC Pct Auto 0.0 /100WBC (0.0-0.2); Platelet Count 272 X10*3/uL (160-400); Red Blood Count 5.17 X10*6/uL (4.20-5.50); White Blood Count 17.3 X10*3/uL (4.8-10.8)
[2025-09-12 05:18] LABS: Alanine Aminotransferase 11 U/L (0-31); Albumin Level 4.3 g/dL (3.5-5.0); Alkaline Phosphatase 71 U/L (39-117); Anion Gap 19 (12-20); Aspartate Amino Transferase 34 U/L (5-31); Blood Urea Nitrogen 35 mg/dL (9-16); Calcium 10.6 mg/dL (8.4-10.2); Carbon Dioxide 25 mmol/L (22-29); Chloride 105 mmol/L (96-108); Creatinine Clr Calc Pharmacy 32.7; Estimated Glomerular Filt Rate 31; Potassium 3.7 mmol/L (3.3-5.1); Sodium 145 mmol/L (135-145); Total Protein 7.0 g/dL (6.5-8.0)
--- NOTE | 2025-09-12 05:27 | PC.NURSE ---
Pt incontinent of stool, bottom red and blanching, no open areas noted. Cleaned and straight cathed for 600ml concentrated yellow urine. UA sent for processing. Pt recently admitted to [facility] for recurrent UTI and encephalopathy. Pt offers no complaints, tolerated procedure well. Purewick in place. Awaiting primary provider eval.
[2025-09-12 05:31] LABS: Appearance Urine Clear; Glucose Urine UA 250 mg/dL (Negative); PH 5.0 (5.0-9.0); Specific Gravity - Urine 1.015 (1.005-1.025); UMIC TRIGGER UACC YES
[2025-09-12 05:41] LABS: Resp Syncy Virus RNA Qual PCR NEGATIVE (Negative); SARS COV2 PCR INHOUSE NEGATIVE (Negative)
--- OUTSIDE RECORDS SUMMARY | 2025-09-12 05:45 | XMS_ITS | Continuity of Care Document ---
Author Name [facility], Medical Address [address] [place] [address] Organization Unknown Address [address] [place] [address] Medications No known medications Problems No known problems
--- OUTSIDE RECORDS SUMMARY | 2025-09-12 05:45 | XMS_ITS | Continuity of Care Document ---
Author Organization [place] - [employer] [facility], [facility] Address [address] [place] [address] Care Team Providers Care Hand Sewer Name Role Phone TIMOTHY WAKEFIELD Primary Care Provider HIM CCA OTHER Assessment Encounter Date Assessment Date Assessment LastModified by Organization Details LastModified Time 08/01/2025 08/01/2025 I have reviewed and agree with the assessment and plan as documented by the equal opportunity representative. I provided real time medical direction for this encounter and was immediately available to provide additional phone based assistance as needed. History as noted by equal opportunity representative. Pt with history of Congestive Heart Failure, COPD/Asthma, Coronary Artery Disease, Hypertension, Hyperlipidemia, Urinary Tract Infections (UTI), Hypothyroidism, Gout, and PAD, scheduled for upcoming vascular surgery on her RLE. Pt reports about 10 days of a change in her voice with a hoarse and softer voice. 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 She denies any sore throat or pain with swallowing. No SOB. No neck pain or fevers. Pt is a non smoker. Pt was already seen by [facility] on 07/24 for 4 days of a hoarse voice and was told that it was likely a viral URI. On exam, pt's voice is mildly hoarse, no stridor or drooling. Vitals normal, lungs clear. Exam of throat and neck normal. Rapid Covid/flu/strep all negative. Impression: Pt with a voice change management director the last 10 days, no other significant URI symptoms and no throat pain, dyspnea or fevers. No difficulty swallowing. She has noted a very mild cough. Exam of the throat and neck are normal. Symptoms are possibly related to a viral laryngitis but I'm concerned about other laryngeal pathology and discuss with the pt that she needs to be evaluated by an ENT surgeon who can directly visualize her larynx in the office. Pt is instructed to call her primary care today and have them refer her to an ENT for evaluation of her recent voice changes. Pt told to present to the ED right away if she develops any difficulty breathing or swallowing. To primary care team: Please refer patient to an ENT for further evaluation of her voice changes. [email or web address] Not available 08/01/2025 16:08:38 Plan of Treatment Reminders Order Date Submit Date Provider Last Modified By Organization Details Last Modified Time Details Appointments None recorded. Lab rapid strep group A, throat 2024 [facility], [address] [place] [address], [id number] 16:12:29 rapid SARS CoV 2 Ag, QL IA, respiratory specimen 2024 [facility], [address] [place] [address], [id number] 16:12:45 rapid flu (A+B) 2024 [facility], [address] [place] [address], [id number] 16:32:19 Referral None recorded. Procedures None recorded. Surgeries None recorded. Imaging None recorded. Medication Orders None recorded. Patient TargetsNo targets recorded. Patient InstructionsNo instructions recorded. Reason for Referral None Reported. Results Created Date Observation Date Name Description Value Unit Range Abnormal Flag Note LastModifiedBy Organization Detail LastModifiedTime Result Notes None recorded. Problems Name Problem SNOMED Code Status Onset Date Resolution Date Notes Provider Name and Address Organization Details Recorded Time Lumbosacral radiculopat hy [id number] Channing Myles MD [address] [place] [address],[address], [place], [address], [employer] 16:20:58 Osteoarthri tis of hip [id number] Channing Myles MD [address] [place] [address],[address], [place], [address], [employer] 16:21:35 Osteoarthri tis of left knee joint [id number] 09 Chnaning Myles MD [address] [place] [address],[address], [place], [address], [place] [employer] 16:21:44 Osteoarthri tis of right knee joint 3408183624476 00 Active Magdiel Myles MD [address] [place] [address],[address], [place], [address], [place] [employer] 16:21:50 Scoliosis of lumbar spine 827592422 Active Magdiel Myles MD [address] [place] [address],[address], [place], [address], [place] [employer] [employer] 16:21:58 Resting tremor 95792594 Active Magdiel Myles MD [address] [place] [address],[address], [place], [address], [place] [employer] 16:22:07 Hypothyroid ism 93787290 Active Magdiel Myles MD [address] [place] [address],[address], [place], [address], [place] [employer] [employer] 16:23:04 Asthma 181256135 Active 2020 Magdiel Myles MD [address] [place] [address],[address], [place], [address], [place] [employer] [employer] 16:20:12 Chronic kidney disease stage 2 807984790 Active 2020 Magdiel Myles MD [address] [place] [address],[address], [place], [address], [place] [employer] 16:20:16 Essential hypertensio n 48759357 Active 2020 Magdiel Myles MD [address] [place] [address],[address], [place], [address], [place] [employer] [employer] 16:20:19 Hyperlipide robin 46088057 Active 2020 Magdiel Myles MD [address] [place] [address],[address], [place], [address], [place] [employer], [employer] 5 16:20:22 Hyperthyroi dism 74401428 Active 2020 Magdiel Myles MD [address] [place] [address],[address], [place], [address], [place] [employer] 16:20:29 Edema 619961347 Active 2020 Magdiel Myles MD [address] [place] [address],[address], [place], [address], [place] [employer] 16:21:02 Mixed anxiety and depressive disorder 788274062 Active 2020 Magdiel Myles MD [address] [place] [address],[address], [place], [address], [place] [employer] [employer] 16:21:07 Obstructive sleep apnea syndrome 11785938 Active 2020 Magdiel Myles MD [address] [place] [address],[address], [place], [address], [place] [employer] 16:21:16 Osteoarthri tis of knee 225460839 Active 2020 Magdiel Myles MD [address] [place] [address],[address], [place], [address], [place] [employer] [employer] 16:21:39 Osteoarthri tis of right hip joint 0030905542403 07 Active 2020 Magdiel Myles MD [address] [place] [address],[address], [place], [address], [place] [employer] 16:21:47 Problem Notes None recorded. Medical Equipment None Reported. Allergies Allergen ID Allergen Name Allergen Category Reaction Reaction Severity Criticality Documentation Date Start Date Code Code System Note Provider Name and Address Organization Details Recorded Time 03180 lisinopri l medicatio n Not available Not available Not available 10/10/2024 72846 RxNorm Not Available [employer] [facility] [employer] 11:33:21 08224 Seroquel medicatio n Not available Not available Not available 10/10/2024 29547 RxNorm Not Available [employer] - production 11:33:21 14998 Claritin medicatio n Not available Not available Not available 10/10/202481821 6 [facility] 11:33:21 12809 codeine medicatio n Not available Not available Not available 04/21/2025 2670 [facility] 15:38:18 20951 Zoloft medicatio n Not available Not available Not available 07/24/2025 76781 Rx[facility] Available [facility] 15:48:26 33963 loratadin e medicatio n Not available Not available Not available 07/24/2025 58233 RxNorm Not Available [employer] - prod 5 17:09:57 89177 quetiapin e medicatio n Not available Not available Not available 07/24/2025 95098 RxNorm Not Available [employer] - prod 5 17:09:57 58234 sertralin e medicatio n Not available Not available Not available 07/24/2025 59815 RxNorm Not Available [employer] - prod 5 17:09:57 36259 amoxicill in medicatio n Not available Not available Not available 09/09/2025 723 RxNorm Raisa Tejeda MD [address] [place] [address],[address] [facility], [place], [address], [place] [employer] 5 10:51:44 Medications Name Sig Start Date Stop Date Status Note LastModified by Organization Details LastModified Time vitamin d3 25 mcg (1000u) t active Not Available Not Available No t Available [employer]cript[employer] n - Renewal active Not Available Not Available Not Available losartan 50 mg tablet TAKE 1 TABLET BY MOUTH EVERY DAY active Not Available Not Available No t Available fluconazole 100 mg tablet TAKE 1 TABLET BY MOUTH DAILY active Not Available Not Available No t Available terbinafine HCl 1 % topical cream USE 1 APPLICATI ON TOPICALLY 2 TIMES A DAY,X14 DAYS,INST R:TO APPLY ON AFFECTED AREA TWICE A DAY. active Not Available Not Available No t Available levothyroxi ne 137 mcg tablet active Not Available Not Available Not Available carvedilol 25 mg tablet TAKE 1 TABLET BY MOUTH TWICE A DAY active Not Available Not Available No t Available torsemide 20 mg tablet TAKE 2 TABLETS BY MOUTH EVERY DAY active Not Available Not Available No t Available trazodone 50 mg tablet active Not Available Not Available Not Available fluconazole 150 mg tablet TAKE 1 TABLET BY MOUTH ONCE active Not Available Not Available No t Available meloxicam 15 mg tablet TAKE 1 TABLET BY MOUTH EVERY DAY, TAKE WITH FOOD OR WATER active Not Available Not Available No t Available metformin 850 mg tablet TAKE 1 TABLET BY MOUTH EVERY MORNING active Not Available Not Available No t Available metolazone 5 mg tablet TAKE 1 TABLET BY MOUTH EVERY OTHER DAY TAKE 1/2 HOUR BEFORE TORESEMID E IN THE MORNING active Not Available Not Available No t Available potassium chloride ER 10 mEq tablet,exte nded release TAKE 1 TABLET BY MOUTH EVERY DAY active Not Available Not Available No t Available hydroxyzine HCl 50 mg tablet TAKE 1 TABLET BY MOUTH 3 TIMES A DAY NEEDED NEEDED FOR ITCHING active Not Available Not Available No t Available fluocinonid e 0.05 % topical ointment PLEASE SEE ATTACHED FOR DETAILED DIRECTION S active Not Available Not Available No t Available amlodipine 5 mg tablet TAKE 1 TABLET BY MOUTH EVERY DAY active Not Available Not Available No t Available allopurinol 100 mg tablet TAKE 1 TABLET BY MOUTH EVERY DAY active Not Available Not Available No t Available sulfamethox azole 800 mg-trimetho prim 160 mg tablet Take 1 tablet every 12 hours by oral route for 5 days. 2024 active Not Available Not Available Not Avai lable peg-electro lyte solution 420 gram oral solution DRINK 240ML EVERY 15 MINUTES UNTIL GONE active Not Available Not Available No t Available aspirin 81 mg tablet,ginger yed release TAKE 1 TABLET BY MOUTH EVERY DAY active Not Available Not Available No t Available tramadol 50 mg tablet TAKE 1 TABLET BY MOUTH EVERY 12 HOURS FOR 5 DAYS NEEDED FOR MODERATE PAIN active Not Available Not Available No t Available triamcinolo ne acetonide 0.1 % topical cream active Not Available Not Available Not Available spironolact one 25 mg tablet TAKE 1 TABLET BY MOUTH EVERY DAY FOR 5 DAYS active Not Available Not Available No t Available amoxicillin 500 mg tablet TAKE 1 TABLET BY MOUTH EVERY 8 HOURS 06/11 completed Not Available Not Available Not Available carvedilol 3.125 mg tablet TAKE 1 TABLET BY MOUTH TWICE A DAY active Not Available Not Available No t Available famotidine 20 mg tablet TAKE 1 TABLET BY MOUTH DAILY BEFORE DINNER active Not Available Not Available No t Available desonide 0.05 % topical ointment APPLY SPARINGLY AND RUB GENTLY INTO THE AFFECTED AREA(S) BY TOPICAL ROUTE 2 TIMES PER DAY FOR 1 WEEK active Not Available Not Available No t Available Ear Wax Removal Kit 6.5 % drops INSTILL 5 DROPS INTO EACH EAR 2 TIMES A DAY FOR 4 DAYS active Not Available Not Available No t Available baclofen 10 mg tablet TAKE 1 [...] Not Available Not Available No t Available hydrocortis one 1 % topical cream APPLY A THIN LAYER TO THE AFFECTED AREA(S) BY TOPICAL ROUTE 2 TIMES PER DAY 2024 active Not Available Not Available Not Avai lable levothyroxi ne 125 mcg tablet TAKE 1 TABLET BY MOUTH EVERY DAY active Not Available Not Available No t Available nystatin 100,000 unit/gram topical cream APPLY TO AFFECTED AREA TWICE A DAY active Not Available Not Available No t Available levothyroxi ne 150 mcg tablet active Not Available Not Available Not Available losartan 25 mg tablet TAKE 1 TABLET BY MOUTH EVERY DAY active Not Available Not Available No t Available gabapentin 300 mg capsule TAKE 1 [...] Not Available Not Available No t Available hydrocortis one 2.5 % topical cream APPLY TOPICALLY 3 TIMES A DAY FOR 14 DAYS USE A THIN FILM TO AFFECTED SKIN AND RUB IN COMPLETEL Y active Not Available Not Available No t Available amoxicillin 250 mg capsule TAKE 1 CAPSULE BY MOUTH 3 TIMES A DAY UNTIL GONE active Not Available Not Available No t Available hydroxyzine HCl 25 mg tablet TAKE 2 TABLETS BY MOUTH 3 TIMES A DAY,X30 DAYS active Not Available Not Available No t Available gabapentin 100 mg capsule TAKE 1 CAPSULE BY MOUTH TWICE A DAY active Not Available Not Available No t Available nystatin 100,000 unit/gram topical powder APPLY TO THE AFFECTED AREA(S) BY TOPICAL ROUTE 2 TIMES PER DAY active Not Available Not Available No t Available cefuroxime axetil 500 mg tablet TAKE 1 TABLET BY MOUTH TWICE A DAY FOR 3 DAYS 06/11 completed Not Available Not Available Not Available estradiol 0.01% (0.1 mg/gram) vaginal cream INSERT 1 GRAM VAGINALLY EVERY NIGHT FOR 1 WEEKS, THEN TWICE PER WEEK active Not Available Not Available No t Available methylpredn isolone 4 mg tablets in a dose pack TAKE 6 TABLETS ON DAY 1 DIRECTED ON PACKAGE AND DECREASE BY 1 TAB EACH DAY FOR A TOTAL OF 6 DAYS active Not Available Not Available No t Available albuterol sulfate HFA 90 mcg/actuati on aerosol inhaler INHALE 2 PUFFS EVERY 4 HOURS NEEDED FOR WHEEZING active Not Available Not Available No t Available ketoconazol e 2 % topical cream APPLY TOPICALLY 2 TIMES A DAY active Not Available Not Available No t Available losartan 100 mg tablet TAKE 1 TABLET BY MOUTH EVERY DAY active Not Available Not Available No t Available fluticasone propionate 50 mcg/actuati on nasal spray,suspe nsion USE 1 SPRAY IN EACH NOSTRIL TWICE A DAY active Not Available Not Available No t Available metformin ER 500 mg tablet,exte nded release 24 hr TAKE 1 TABLET BY MOUTH EVERY DAY active Not Available Not Available No t Available clotrimazol e 1 % topical cream APPLY 2 TIMES A DAY TO RIGHT UPPER THIGH/HIP AREA active Not Available Not Available No t Available dextroamphe tamine-amph etamine 5 mg tablet active Not Available Not Available No t Available hydrocortis one 1 % topical cream with perineal applicator APPLY THIN COAT TO AFFECTED AREA TWICE A DAY active Not Available Not Available No t Available ciclopirox 0.77 % topical cream APPLY TO AFFECTED AREA ON FEET TWICE DAILY active Not Available Not Available No t Available aripiprazol e 10 mg tablet active Not Available Not Available Not Available aripiprazol e 5 mg tablet active Not Available Not Available Not Available rosuvastati n 5 mg tablet TAKE 1 TABLET BY MOUTH EVERY DAY active Not Available Not Available No t Available bupropion HCl XL 300 mg 24 hr tablet, extended release TAKE 1 TABLET BY MOUTH EVERY DAY IN THE MORNING active Not Available Not Available No t Available capsaicin 0.1 % topical cream APPLY TOPICALLY TWICE A DAY NEEDED FOR 14 DAYS active Not Available Not Available No t Available Advair HFA 230 mcg-21 mcg/actuati on aerosol inhaler INHALE 2 PUFFS TWICE A DAY active Not Available Not Available No t Available aripiprazol e 2 mg tablet TAKE 1 TABLET BY MOUTH EVERY DAY active Not Available Not Available No t Available cholecalcif agnieszka (vitamin D3) 25 mcg (1,000 unit) tablet TAKE 1 TABLET BY MOUTH EVERY DAY active Not Available Not Available No t Available budesonide- formoterol HFA 160 mcg-4.5 mcg/actuati on aerosol inhaler INHALE 2 PUFFS BY MOUTH TWICE A DAY NEEDED FOR WHEEZING/ SOB active Not Available Not Available No t Available diclofenac 1 % topical gel APPLY 2G TOPICALLY 4 TIMES A DAY NEEDED FOR PAIN NOT TO EXCEED 8 TIMES DAILY active Not Available Not Available No t Available ketorolac 30 mg/mL injection solution Inject 15 mg by intraveno us route. 2022 active Not Available Not Available [...] Foot 2 % topical spray APPLY 1 APPLICATI ON EXTERNALL Y TWICE A DAY FOR 14 DAYS active Not Available Not Available No t Available Vitals Date Recorded Heart rate Oxygen saturation Respiratory rate Body height Body temperature Body weight Systolic And Diastolic Provider Name and Address Organization Details Last Updated DateTime 5 74 /min 96 % 18 /min 160.02 cm 98.4 [degF] 305928. 752 g 112/67 mm[Hg] Not Available [facility] 5 11:45:09 Social History None recorded. Functional Status None recorded. Mental Status None recorded. Family History Nothing Reported. Medical History No medical history recorded. Gynecological HistoryNo gynecological history recorded. Obstetrics History GPAL:G 0 P 0 0 0 0 Past Encounters Encounter ID Performer Location Encounter Start Date Encounter Closed Date Diagnosis/Indication Diagnosis SNOMED-CT Code Diagnosis ICD10 Code Diagnosis IMO Codes Diagnosis Note [id number] Tatiana Hartley MD Main[facility]inst ED Medical [facility] [address] [place] [address] 07/24/2025 17:09:06 07/25/2025 15:42:41 Viral upper respiratory tract infection [id number] J06.9 [id number] 75 year old female being evaluated for 4 days of hoarse voice and congestion . Patient states she is able to swallow and take PO, and denies respirator y complaints . Exam notable for normal vital signs, clear lungs, POC COVID and flu are negative. Presentati on consistent with uncomplica adeel viral URI, reassuranc e offered, continue supportive care. I have reviewed and agree with the assessment and plan as documented by the equal opportunity representative. I provided real-time medical direction for this encounter and was immediatel y available to provide additional phone-base d assistance as needed. We discussed the diagnostic uncertaint y of home visits and associated risks. We discussed the need to seek care urgently/e mergently in the setting of any new or worsening symptoms. [id number] Sean Fish MD [facility] ED Medical [address] [address] 08/01/2025 11:45:05 08/01/2025 16:11:59 Hoarse [id number] R49.0 [id number] Health Concerns Section Related Observation LastModified by Organization Detai ls LastModified Time None Recorded Concern Status LastModified by Organization Details LastModified Time None Recorded Payers Encounter Date Sequence Insurance Name Policy Number Policy Lyons Covered Member ID Lyons Member ID Guarantor Name 08/01/2025 1 [facility] - DOS ON OR AFTER 2022 - DUAL ELIGIBLE - RESIDENTIAL OPTIONS AND ONE CARE (MEDICARE REPLACEMENT/ADV ANTAGE - HMO) Sharon Nugent [id number] Sharon Nugent Notes Date Note Type Note Provider Name and Address Organization Details Recorded Time 08/01/2025 text/html ROS as noted in the HPI This was a supervised home visit with equal opportunity representative Kevin Yan. [facility] Nurse Triage Notes (Shruthi Alvarez): Reason For Request: Patient's voice has changed and it's Scratchy. Patient Reports: Lower extremity swelling; History of asthma, increased use of inhaler; CoughDenies: Increased work of breathing/labored with or without fever Unable to speak in full sentences without distress Discoloration of skin -cyanosis Needs to sleep sitting up, can t catch breath Shortness of breath in setting of confusion Cough, fever greater than 2 days COPD COVID Exposure Sputum increase Shortness of breath with exertion Pain with inspiration Chief Complaints: CoughPMH: Congestive Heart Failure, COPD/Asthma, Coronary Artery Disease, Hypertension, Hyperlipidemia, Urinary Tract Infections (UTI), Hypothyroidism, GoutPMH Reviewed at 08/01/2025 - :32Allergies Reviewed at 08/01/2025 - :32Comments: 75 y.o female complains of mild Cough and voice changing last 10 days.Voice is hoarse and scratchy feeling. Also noted to c/o pain in right leg.Baseline has swelling in legs. Member reports going for a procedure next Thursday for her right leg. She is using cough drops PRN.Takes ASA dailyRequesting visit for evaluation and throat culture. I provided information on the mobile health provider response time and advised the patient and/or caregiver to monitor reported signs and symptoms. I discussed the warning signs of when to seek emergency care. [employer]insmith Apprentice Organization Information for Kevin Yan [facility] Name[facility] TransportationAddress : [address] [place] [address], [place] [address], Medical Director: Alberto Babcock [facility] No.: [id number] Tinsmith Apprentice POC Test Results from Kevin Yan Rapid influenza antigen (11:41:04)Flu: - Rapid strep test (11:41:06)Strep: - Rapid COVID antigen (11:41:09)COVID: - ..................... ..................... ..................... ..................... ..................... ..................... ............... Tinsmith Apprentice Note From Kevin Yan: 75-year-old female main complaint today of low volume and hoarse sounding voice times 10 days. Patient states she has had a nonproductive cough no sinus drainage no productive mucus noted and no pain in her throat or pain to swallowing. Press sounds clear and equal bilaterally and belly soft nontender. 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 Patient thought she might v e had laryngitis, but is speaking in full clear sense is currently but does sound alittle gravelly. Flu, Covid and strep tests were all negative. Dr. Fish discussed need for ear nose and throat visit and need to call her primary care doctor to schedule that. Patient agreed she would call and advised warranty and cold water alternating to see if that helps with the voice. Patient has a an upcoming vascular surgery on her right leg Involving putting in a stent. Leg has good pulses no pain and is moving without any issues. Patient notes she has some pain when standing brushing her teeth only. Surgery is on Thursday next week and I was mostly concerned about her hoarse voice. All questions answered no concerns. Patient thanked us for the visit. [facility] Lab Orders: rapid strep group A, throat: Performed rapid SARS CoV 2 Ag, QL IA, respiratory specimen: Performed rapid flu (A+B): Performed ..................... ..................... ..................... ..................... ..................... ..................... ............... [facility] Consulted: Sean Fish ..................... ..................... ..................... ..................... ..................... ..................... ............... Disposition: Fulfilled ..................... ..................... ..................... ..................... ..................... ..................... ............... Tinsmith Apprentice Note From Kevin Yan:This has been updated by the equal opportunity representative, Kevin Yan, at (08/01/2025 12:23:02) 75-year-old female main complaint today of low volume and hoarse sounding voice times 10 days. Patient states she has had a nonproductive cough no sinus drainage no productive mucus noted and no pain in her throat or pain to swallowing. Press sounds clear and equal bilaterally and belly soft nontender. 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 Patient thought she might v e had laryngitis, but is speaking in full clear sense is currently but does sound alittle gravelly. Flu, Covid and strep tests were all negative. Dr. Fish discussed need for ear nose and throat visit and need to call her primary care doctor to schedule that. Patient agreed she would call and advised warm tea and cold water alternating to see if that helps with the voice. Patient has a an upcoming vascular surgery on her right leg Involving putting in a stent. Leg has good pulses no pain and is moving without any issues. Patient notes she has some pain when standing brushing her teeth only. Surgery is on Thursday next week and I was mostly concerned about her hoarse voice. All questions answered no concerns. Patient thanked us for the visit. Sean Fish MD [address] [facility],[address], [place], [address], [employer] 08/01/2025 16:08:58 OBGyn Episode No OBEpisode recorded.
--- OUTSIDE RECORDS SUMMARY | 2025-09-12 05:45 | XMS_ITS | Continuity of Care Document ---
Author Name [facility], Medical Address [address] [place] [address] Organization Unknown Address [address] [place] [address] Medications No known medications Problems No known problems
--- OUTSIDE RECORDS SUMMARY | 2025-09-12 05:46 | XMS_ITS | Encounter Summary ---
Author Organization [facility]ly [facility] Address [address] [facility] [address] [place] [address] Encounters * CPT with Medical [facility] at [facility] on 2025-08-01 { reasonForRequest : Patient's voice has changed and it's Scratchy. , boris entReports : Lower extremity swelling; History of asthma, increased use of inhaler; Cough", denies :[ Increased work of breathing/labored with or without fever , Unable to speak in full sentences without distress , Discoloration of skin -cyanosis , Needs to sleep sitting up, can t catch breath , Shortness of breath in setting of confusion , Cough, fever greater than 2 days , COPD , COVID Exposure , Sputum increase , Shortness of breath with exertion , Pain with inspiration ], chiefComplaints : Cough , pmh : Congestive Heart Failure, COPD/Asthma, Coronary Artery Disease, Hypertension, Hyperlipidemia, Urinary Tract Infections (UTI), Hypothyroidism, Gout , allergies : Lisinopril, Seroquel, Claritin, Codeine, Zoloft , otherAllergies :null, painAssessment : ,&q uot;visitOutcome : , additionalComments : 75 y.o female complains ofmild Cough and voice changing last 10 days.\nVoice is hoarse and scratchy feeling. Also noted to c/o pain in right leg.\nBaseline has swelling in legs. Member reports going for a procedure next Thursday for her right leg. She is using cough drops PRN. \nTakes ASA daily \nRequesting visit for evaluation and throat culture. \n\nI provided information on the mobile health provider response time and ad vised the patient and/or caregiver to monitor reported signs and symptoms. I discussed the warning signs of when to seek emergency care. } 75-year-old female main complaint today of low volume and hoarse sounding voice times 10 days. Patient states she has had a nonproductive cough no sinus drainage no productive mucus noted and no painin her throat or pain to swallowing. Press sounds clear and equal bilaterally and belly soft nontender. Family is noting the change in voice as well as her credit review manager. Patient thought she might???ve had laryngitis, but is speaking in full clear sense is currently but does sound alittle gravelly. Flu, Covid and strep tests were all negative. Dr. Fish discussed need for ear nose and throat visit and needto call her primary care doctor to schedule that. Patient agreed she would call and advised warranty and cold water alternating to see if that helps with the voice. Patient has a an upcoming vascularsurgery on her right leg Involving putting in a stent. Leg has good pulses no pain and is moving without any issues. Patient notes she has some pain when standing brushing her teeth only. Surgery is on Thursday next week and I was mostly concerned about her hoarse voice. All questions answered no con cerns. Patient thanked us for the visit. ORAL_MEDICATION, POC_FLU_STREP, COVID_TEST Written by Medical instED on 2025-08-01
--- OUTSIDE RECORDS SUMMARY | 2025-09-12 05:46 | XMS_ITS | Encounter Summary ---
Author Organization [facility] Address [address] [facility] [address] [place] [address] Encounters * CPT with Medical [facility] at [facility] on 2025-06-02 { reasonForRequest : Pt was recently seen by [facility] on 05/31/25 and requesting to follow up with a CRC RN , patientReports : , denies :[ Falls with head strike and LOC , Falls from a standing position, no LOC, patient is amnestic to the event , Falls with isolated injury and deformity noted to limb , Falls with in ability to move post fall , Cool extremities after fall or injury , Weakness wit h fall, able to move all extremities ], chiefComplaints : Extremity Pain ,& quot;pmh : Congestive Heart Failure, COPD/Asthma, Coronary Artery Disease, Hypertension, Hyperlipidemia , allergies : Lisinopril, Seroquel, Claritin, Codeine , otherAllergies :null, painAssessment : , visitOutcome : &qu ot;, additionalComments : 75 y.o female complains of Extremity Pain\npatient self referring\nSeen by [facility] for same pain in right arm no fever no warmth\ntylenol cream takes edge off but not helping much\nshe states oral tylenol makes it worse. \nStates she did not injur her arm butdoes you grab bar to pull herself out of tub\ndenies any numbness or tingling. \nTakes baby aspirindaily \nrequesting reassessment by [facility]. \nI provided information on the mobile health provider response time and advised the patient and/or caregiver to monitor reported signs and symptoms. I discussed the warning signs of when to seek emergency care. } [employer] visit for female patient with complaint of right shoulder pain. Patient reports she???s beenhaving the pain for about two or three weeks. No known fall or injury or exertion at onset of pain.Patient reports it is possible that she strained it using her grab bar to pull herself out of the bathtub. [facility] and told to ice the affected area which helped slightly. Patient is also been trying topical lidocaine with slight improvement. Patient presents appearing well and no obvious distress. Vital signs taken as listed with no fever noted. Affected extremity examined with no obvious signs of injury trauma. No appreciable swelling in the area. Patient did note that it is difficult to raise her right arm as if to wave. Consulted with [facility], Dr. Myles who prescribed topical capsaicin cream. Patient told to follow up with primary care if possible for additional pain management or possible physical therapy. Reviewed red flags. Pt education provided. IV_(FLUIDS_AND/OR_MEDICATION), MEDICATION_IM, ORAL_MEDICATION, WOUND_CARE, ORTHOSTATIC_VITAL_SIGNS Written by [facility] on 2025-06-02
--- OUTSIDE RECORDS SUMMARY | 2025-09-12 05:46 | XMS_ITS | Continuity of Care Document ---
Author Organization [employer] [facility], [facility] Address [address] [place] [address] Care Team Providers Care Resource Engineer Name Role Phone TIMOTHY WAKEFIELD Primary Care Provider [phone] HIM CCA OTHER Assessment No assessment recorded. Plan of Treatment Reminders Order Date Submit Date Provider Last Modified By Organization Details Last Modified Time Details Appointments None recorded. Lab rapid flu (A+B) 2024 [facility], [address] [place] [address], [id number] 5 07:58:22 rapid SARS CoV 2 Ag, QL IA, respiratory specimen 2024 [facility], [address] [place] [address], [id number] 5 07:58:22 rapid strep group A, throat 2024 025 [facility], [address] [place] [address], [id number] 5 07:58:23 Referral None recorded. Procedures None recorded. Surgeries [...] Organization Details Recorded Time Lumbosacral radiculopat hy 3167072 Active Magdiel Myles MD [address] [place] [address],[address], [place], [address] , [employer] [facility] 5 16:20:58 Osteoarthri tis of hip [id number] Channing Myles MD [address] [place] [address],[address], [place], [address], [place] [facility] [employer] 5 16:21:35 Osteoarthri tis of left knee joint 6845644207600 09 Channing Myles MD [address] [place] [address],[address], [place], [address], [place] [employer] 5 16:21:44 Osteoarthri tis of right knee joint 2147028537997 00 Active Magdiel Myles MD [address] [place] [address],[address], [place], [address], [place] [employer] [employer] 16:21:50 Scoliosis of lumbar spine 697732581 Channing Myles MD [address] [place] [address],[address], [place], [address], [place] [employer] 16:21:58 Resting tremor 14034182 Channing Myles MD [address] [place] [address],[address], [place], [address], [place] [employer] 16:22:07 Hypothyroid ism 96451334 Active Magdiel Myles MD [address] [place] [address],[address], [place], [address], [place] [employer] 16:23:04 Asthma 103370078 Active 2020 Magdiel Myles MD [address] [place] [address],[address], [place], [address], [place] [employer] 16:20:12 Chronic kidney disease stage 2 048174047 Active 2020 Magdiel Myles MD [address] [place] [address],[address], [place], [address], [place] [employer] [employer] 5 16:20:16 Essential hypertensio n 34576731 Active 2020 Magdiel Myles MD [address] [place] [address],[address], [place], [address], [place] [employer] [employer] 16:20:19 Hyperlipide robin 86921847 Active 2020 Magdiel Myles MD [address] [place] [address],[address], [place], [address], [place] [employer] [facility] [employer], [employer] 16:20:22 Hyperthyroi dism 65308281 Active 2020 Magdiel Myles MD [address] [place] [address],[address], [place], [address], [place] [employer], [employer] 16:20:29 Edema 265374928 Active 2020 Magdiel Myles MD [address] [place] [address],[address], [place], [address], [employer], [employer] 16:21:02 Mixed anxiety and depressive disorder 619057158 Active 2020 Magdiel Myles MD [address] [place] [address],[address], [place], [address], [place] [employer], [employer] 16:21:07 Obstructive sleep apnea syndrome 27946191 Active 2020 Magdiel Myles MD [address] [place] [address],[address], [place], [address], [employer], [employer] 16:21:16 Osteoarthri tis of knee 246692679 Active 2020 Magdiel Myles MD [address] [place] [address],[address], [place], [address], [employer] 16:21:39 Osteoarthri tis of right hip joint 4651276982895 07 Active 2020 Magdiel Myles MD [address] [place] [address],[address], [place], [address], [employer], [employer] 16:21:47 Problem Notes None recorded. Medical Equipment None Reported. Allergies Allergen ID Allergen Name Allergen Category Reaction Reaction Severity Criticality Documentation Date Start Date Code Code System Note Provider Name and Address Organization Details Recorded Time 45907 lisinopri l medicatio n Not available Not available Not available 10/10/2024 64583 RxNorm Not Available [employer] 5 11:33:21 58851 Seroquel medicatio n Not available Not available Not available 10/10/2024 68792 RxNorm Not Available [facility] production 5 11:33:21 11635 Claritin medicatio n Not available Not available Not available 10/10/2024 03454 6 RxNorm Not Available [facility] production 5 11:33:21 62794 codeine medicatio n Not available Not available Not available 04/21/2025 2670 RxNorm Not Available [facility] 5 15:38:18 43960 Zoloft medicatio n Not available Not available Not available 07/24/2025 06362 RxNorm Not Available [facility] 15:48:26 27337 loratadin e medicatio n Not available Not available Not available 07/24/2025 66690 RxNorm Not Available [employer] [employer] - prod 5 17:09:57 64688 quetiapin e medicatio n Not available Not available Not available 07/24/2025 27424 RxNorm Not Available [employer] - prod 5 17:09:57 31707 sertralin e medicatio n Not available Not available Not available 07/24/2025 41229 RxNorm Not Available [employer] - prod 5 17:09:57 95027 amoxicill in medicatio n Not available Not available Not available 09/09/2025 723 RxNorm Raisa Tejeda MD [address] [place] [address],[address], [place], [address] [place] [address] - [employer] 5 10:51:44 Medications Name Sig Start Date [...] Available No t Available Vitals Date Recorded Body weight Respiratory rate Body temperature Heart rate Oxygen saturation Systolic And Diastolic Provider Name and Address Organization Details Last Updated DateTime 5 436617. 12 g 16 /min 98.2 [degF] 84 /min 94 % 147/81 mm[Hg] Not Available [facility] 5 21:03:49 Social History None recorded. Functional Status None recorded. Mental Status None recorded. Family History Nothing Reported. Medical History No medical history recorded. Gynecological HistoryNo gynecological history recorded. Obstetrics History GPAL:G 0 P 0 0 0 0 Past Encounters Encounter ID Performer Location Encounter Start Date Encounter Closed Date Diagnosis/Indication Diagnosis SNOMED-CT Code Diagnosis ICD10 Code Diagnosis IMO Codes Diagnosis Note [id number] Tatiana Hartley MD [facility] [address] [address] 07/24/2025 17:09:06 07/25/2025 15:42:41 Viral upper respiratory tract infection 119750299 J06.9 [id number] 75 year old female being evaluated for [...] assessment and plan as documented by the diathermy equipment repairer. I provided real-time medical direction for this encounter and was immediatel y available to provide additional phone-base d assistance as needed. We discussed the diagnostic uncertaint y of home visits and associated risks. We discussed the need to seek care urgently/e mergently in the setting of any new or worsening symptoms. [id number] Sean Fish MD [address] [address] 08/01/2025 11:45:05 08/01/2025 16:11:59 Hoarse 11055153 R49.0 [id number] CODY ALMANZAR MD [address] [address] 08/04/2025 20:55:51 08/07/2025 16:33:20 Acute exacerbation of chronic obstructive pulmonary disease [id number] J44.1 597267 Evaluation in the field was performed by my diathermy equipment repairer colleague, as noted above, I provided real-time direction and supervisio n for this visit. The evaluation revealed 75-year-ol d female with a history of congestive heart failure, asthma/ COPD, BRANDON on CPAP (not on chronic oxygen), coronary artery disease, and hypertensi on presents with intermitte nt shortness of breath over the past several weeks. Her breathing reportedly improves with her inhaler (budesonid e/formoter ol). She developed a new cough last night and notes hoarseness of voice. She denies chest congestion , wheezing, chest pain, fever, chills, headache, or dizziness. She takes Torsemide daily and keeps a detailed weight log. Over the past 2 months her weight has fluctuated 229 2 42 lb (235 lb tonight). Bilateral lower-extr emity edema remains at baseline. Her marketing team lead has had viral URI symptoms recently. She was seen twice earlier this month for similar complaints , with negative viral testing. She was advised to pursue ENT evaluation for persistent hoarseness . She reports an upcoming PCP visit in one week, but the earliest ENT appointmen t is in the spring. She uses CPAP at night without humidifica tion. Has been using sugar-free lozenges with mild relief. Vital Signs: BP 147/81, Pulse 84, RR 16, SpO2 94% RA, Temp 98.2 FExam: General: AAO, NAD, speaking comfortabl y, mild hoarseness .Lungs: CTAB. No wheezing or rhonchi.Ex tremities: Chronic baseline edema.Test ing: COVID, Flu, and Strep negative.A llergies: Reviewed. Impression :Intermitt ent dyspnea with a new hoarse cough most consistent with viral laryngitis versus upper airway irritation , likely exacerbate d by dry CPAP use. No evidence of Asthma /COPD exacerbati on or volume overload on exam. Vitals reassuring and lungs clear. Heart failure appears stable based on weight trends and exam. Plan:Will benefit from adding distilled water humidifica tion to CPAP nightly.Us e cool-mist humidifier in bedroom.Meyers pportive care for laryngeal irritation :Warm fluids, honey , sugar-free lozenges.C ontinue budesonide /formotero l as prescribed .Continue Torsemide at current dose; monitor daily weights.Ma y use albuterol inhaler PRN if shortness of breath worsens.En courage hydration as tolerated. Follow up with PCP next week as scheduled. If persistent hoarseness beyond 3 4 more weeks, re-address ENT referral; sooner if red flags develop.Re d flags reviewed: worsening SOB, fever, productive cough with discolored sputum, chest pain, hemoptysis , inability to speak full sentences, orthopnea, rapid weight gain, or decreased urine output ED immediatel y. Primary care, consider__ _ Dispositio n: We discussed the diagnostic uncertaint y of home visits and the risk associated with this. In this case, the patient and I felt this to be an acceptable and reasonable amount of risk given the benefit of avoiding an ED visit. We discussed the need to seek care urgently/e mergently in the setting of any new or worsening serious symptoms, particular ly worsening SOB, fever, productive cough with discolored sputum, chest pain, hemoptysis , inability to speak full sentences, orthopnea, rapid weight gain, or decreased urine output Health Concerns Section Related Observation LastModified by Organization Detai ls LastModified Time None Recorded Concern Status LastModified by Organization Details LastModified Time None Recorded Payers Encounter Date Sequence Insurance Name Policy Number Policy Lyons Covered Member ID Lyons Member ID Guarantor Name 08/04/2025 1 [facility] - DOS ON OR AFTER 2022 - DUAL ELIGIBLE - HALF-WAY OPTIONS AND ONE CARE (MEDICARE REPLACEMENT/ADV ANTAGE - HMO) Sharon Nugent [id number] Sharon Nugent Notes Date Note Type Note Provider Name and Address Organization Details Recorded Time 08/04/2025 text/html ROS as noted in the HPI CRC Nurse Triage Notes (Nicolasa Smith): Reason For Request: SOB Denies: Increased work of breathing/labored with or without fever Unable to speak in full sentences without distress Discoloration of skin -cyanosis Needs to sleep sitting up, can t catch breath Shortness of breath in setting of confusion Chief Complaints: Breathing Problems PMH: Congestive Heart Failure, COPD/Asthma, Coronary Artery Disease, Hypertension, Hyperlipidemia, Urinary Tract Infections (UTI), Hypothyroidism, Gout PMH Reviewed at 08/04/2025:33 Allergies Reviewed at 08/04/2025:33 Comments: 75 y.o female complains of Breathing Problems Patient calling in with shortness of breath on and off for a few weeks Patient does not wear supplemental o2 Breathing improves with her inhaler She started with a cough last night, voice is hoarse Denies chest congestion, no wheezes, no chest pain No fever/chills No headache or dizziness Patient takes Torsemide daily Edema to BLEs is at baseline She would like to be evaluated I provided information on the mobile health provider response time and advised the patient and/or caregiver to monitor reported signs and symptoms. I discussed the warning signs of when to seek emergency care. Coat Agent Organization Information for Eddie Rossi Business Legal Name: [facility] Address: [address] [place] [address], [place] [id number], Grants Director: Alberto Babcock MD [facility] No.: [id number] Coat Agent POC Test Results from Flo Eddie - ALS Rapid COVID antigen (22:17:53) COVID: - Rapid influenza antigen (22:17:54) Flu: - Rapid strep test (22:17:54) Strep: - .................... .................... .................... .................... .................... .................... .................... . Coat Agent Note From Eddie Rossi: [facility] visit for female patient with complaint of sore throat and shortness of breath. Patient presents at home sitting in recliner. Patient reports hoarseness and cough, presenting in the last few days with some worsening shortness of breath over the last several weeks. patient reports that her BLIND STITCH MACHINE OPERATOR recently told her she was sick with the same symptoms. No known illness. Patient presents in no obvious distress sitting in a recliner at home. Patient reports horse voice was she attribute with nursing shortness of breath. Patient has tried sugar-free lozenges. Vital signs taken as listed. No fever noted. Lungs clear bilaterally. Pt swabbed for flu and covid and strep and found to be negative for all. Consulted with [facility], Dr. Almanzar, who advised continuing supportive care and monitoring symptoms. Reviewed red flags for ED. Patient education provided. [facility] Lab Orders: rapid flu (A+B): Performed rapid SARS CoV 2 Ag, QL IA, respiratory specimen: Performed rapid strep group A, throat: Performed .................... .................... .................... .................... .................... .................... .................... . [facility] Consulted: Cody Almanzar .................... .................... .................... .................... .................... .................... .................... . Disposition: Fulfilled CODY ALMANZAR MD [address] [facility] [facility], [place], [address], [employer] 08/04/2025 22:20:07 OBGyn Episode No OBEpisode recorded.
--- OUTSIDE RECORDS SUMMARY | 2025-09-12 05:46 | XMS_ITS | Continuity of Care Document ---
Author Name [facility], Medical Address [address] [place] [address] Organization Unknown Address [address] [place] [address] Medications No known medications Problems No known problems
--- OUTSIDE RECORDS SUMMARY | 2025-09-12 05:46 | XMS_ITS | Continuity of Care Document ---
Author Name [facility], Medical Address [address] [place] [address] Organization Unknown Address [address] [place] [address] Medications No known medications Problems No known problems
--- OUTSIDE RECORDS SUMMARY | 2025-09-12 05:46 | XMS_ITS | Encounter Summary ---
Author Organization [facility] Address [address] [place] [address] Encounters * CPT with Medical instED at [employer] on 2025-04-22 { reasonForRequest : Pt reporting she was told to call by [facility]>swelling of both lower extremeties>burning in her vagina , patientReports : , denies :[ Unable to void greater than 5 hours , Erection that will not go away after 2 hours , F all or trauma that results in urinary incontinence in the setting of pain , Fall or injury that results in incontinence in the absence of pain , Lower back pain either unilateral or bilateral, unable to void, painful urination -hematuria ], chiefComplaints : Extremity Swelling , pmh : Congestive Heart Failure, COPD/Asthma, Coronary Artery Disease, Hypertension, Hyperlipidemia , allergies : Lisinopril, Seroquel, Claritin, Codeine , otherAllergies :null, painAssessment : Level null out of 10 , visitOutcome : , additionalComments : 75 y.o femalecomplains of Extremity Swelling\nPatient calling reporting she was recently admitted to the hospital and was released a few days ago. Patient reports [facility] wanted her to have a urine sample taken tomorrow or Thursday. Patient reports concerns for UTI, states she has burning in her vagina since Thursday. Patient states she gets burning during urination, worse after urination. Patient denies fever or chills, hematuria or back/ flank pain. Patient reports she also would like her legs looked at. Patient has a history of congestive heart failure and states her legs are increasingly swollen from her baseline. Patient states her L leg is red in color. Patient states she fell on the and she has had increasingly swollen legs since then. Patient denies trouble breathing. Patient taking her diuretic as prescribed. I provided information on the mobile health provider response time and advised thepatient and/or caregiver to monitor reported signs and symptoms. I discussed the warning signs of when to seek emergency care -H. Powers, RN } Encountered patient conscious, alert and ambulatory. Patient reports experiencing urinary discomfort and pain since 04/19/25 and also reports increased swelling in the lower extremities. Patient reports she is currently being treated with antibiotics for cellulitis of the left lower extremity, following an inpatient admission, reports that the swelling, nor the pain, in her legs have not improved since beginning of the medication. Patient also confesses that she is uncertain if she has been taking the prescribed antibiotic correctly as she has a visiting nurse who divides her medication for her. This fha underwriter utilized a pill identifying tool to go through patient???s medication array, confirmed 100 mg doxycycline capsules were in the containers however were not put in for every day; no pill bottle present to confirm frequency of dose. Patient denies chest pain, shortness of breath and fevers. Urinalysis dip performed, values uploaded via [employer]. BMP performed, values uploaded via [employer]. Skin warm dry and of appropriate color for ethnicity. Head and neck free of trauma and edema.-JVD. Breath sounds present, clear and equal bilaterally. Abdomen is soft, non-tender and non-distended. Upper extremities are free of trauma and edema. Lower extremities exhibit bilateral 4+ hitting edema left leg is red and inflamed; tender to the touch, pictures uploaded via [employer]. Peripheral pulses present throughout. [facility] contacted: reports since patient has not been improving since discharge that patient should consider returning to the hospital for more aggressive treatment, including diuresis and correction of patients antibiotic regimen. Patient is agreeable with physicians opinion and states she is willing to go to the hospital. 911 was arranged by this fha underwriter on behalf of patient patient Care was relinqu[facility] to [facility] crew with verbal report given, transport to [facility] requested. IV_(FLUIDS_AND/OR_MEDICATION), MEDICATION_IM, ORAL_MEDICATION, WOUND_CARE, ORTHOSTATIC_VITAL_SIGNS Written by Medical instED on 2025-04-22
--- OUTSIDE RECORDS SUMMARY | 2025-09-12 05:46 | XMS_ITS | Encounter Summary ---
Author Organization [facility] Address [address] [place] [address] Encounters * CPT with Medical instED at [email or web address] on 2025-05-31 { reasonForRequest : Patient has right upper arm pain. , patientReports&quo t;: , denies :[ Falls with head strike and LOC , Falls from a standing position, no LOC, patient is amnestic to the event , Falls with isolated injury and deformity noted to limb , Falls with inability to move post fall , Cool extremities after fall or injury , Weakness with fall, able to move all extremities ], chiefComplaints : Extremity Pain , pmh : Congestive Heart Failure, COPD/Asthma, Coronary Artery Disease, Hypertension, Hyperlipidemia , allergies : Lisinopril, Seroquel, Claritin, Codeine , otherAllergies :null, painAssessment": Level 8 out of 10 , visitOutcome : , additionalComments": 75 y.o female complains of Extremity Pain\n\nSelf-reporting symptoms:\nRUE pain starting a couple of days ago\nPain unchanged over time \nUnsure of injury to the area\nTylenol cream and tylenol arthritis w/ some relief\nRates as 04/30\nReports biceps is swollen but not red\nDenies fever, BP WNL per [facility] yesterday \nASA 81mg, history of kidney issues - patient reports its \ under control\ and only sees the specialist yearly \nRequesting instED visit \n\nI provided information onthe mobile health provider response time and advised the patient and/or caregiver to monitor reported signs and symptoms. I discussed the warning signs of when to seek emergency care. } Encountered patient seated upright and conscious. Patient reports approximately one week of right bicep pain and denies any recent falls or traumas but states the repeated motion of pulling herself out of the bathtub using a bar could???ve caused strain to her right arm as it is her dominant arm. Patient expresses the pain is not static and is not present while reaching over her head or flexing, b ut when she extends to grab something in front of her. Patient additionally denies chest pain, shortness of breath, fevers, and acute changes in vision. Skin warm, dry and of appropriate color for ethnicity. Head and neck, free of trauma and edema. -JVD. Breath sounds present, clear and equal bilaterally. Abdomen is soft, non-tender and non-distended. Extremities are free of trauma and edema. [facility] contacted: encourages patient to ice and elevate the extremity and to continue with [id number] medication. [facility] additionally encourages patient to elevate the right upper extremity with use of pillows while sleeping. This tag writer assisted patient and putting together a homemade ice pack andapplying it to the right upper extremity. Patient verbalizes understanding of the plan in states she is comfortable remaining home today. IV_(FLUIDS_AND/OR_MEDICATION), MEDICATION_IM, ORAL_MEDICATION, WOUND_CARE, ORTHOSTATIC_VITAL_SIGNS Written by Medical instED on 2025-05-31
--- OUTSIDE RECORDS SUMMARY | 2025-09-12 05:46 | XMS_ITS | Encounter Summary ---
Author Organization [facility] Address [address] [place] [address] Encounters * CPT with Medical instED at [employer] on 2025-06-16 { reasonForRequest : cellulitis on legs , patientReports : History of cellulitis, isolated redness noted , denies :[ Mulligan Flash, circumferential mulligan , Mulligan reported with black tissue to the area , Open skin area after a fall with uncontrolled bleeding , Abscess/infection with streaking noted, presence of fever or without , Fever and chills noted in setting of wound , Rash , Bites -bugs, spider , Abscess ], chiefComplaints : Extremity Swelling", pmh : Congestive Heart Failure, COPD/Asthma, Coronary Artery Disease, Hypertension, Hyperlipidemia, Urinary Tract Infections (UTI), Hypothyroidism, Gout , allergies": Lisinopril, Seroquel, Claritin, Codeine , otherAllergies :null, painAss essment : , visitOutcome : , additionalComments :"75 y.o female complains of Extremity Swelling\n\n[facility] from [facility] requesting visit \nBLE swelling redne ss/warmth to shins - noticed last night - LLE worse than RLE\nMinimal pain, no open areas/drainage \nRN reports palpable pedal pulses \nDenies fever\nSame symptoms a month ago - dx cellulitis - treated with antibiotics and resolved\nLast fall in March - reporting hitting knees \[id number]\nPatient reports kidney issues in past - per RN not in medical history \nRequesting instED visit \n\nI provided information on the mobile health provider response time and advised the patient and/or caregiver to monitor reported signs and symptoms. I discussed the warning signs of when to seek emergency care."} S: evaluation of 75y/o female for redness of her right lower anterior leg since yesterday. O: pt found busch x 4 in chair states her van suggested she be seen for possible cellulitis of this area. She states she noticed it last night cause was slightly itchy which she scratched has some superficial scratch torres noted denies pain stated put some nystatin powder on it and since has improved A vss wnl lss clear all song and soft non tender abd normal gi/gu function area palpated with no pain noted skin is norm temp compared to other areas pt states recent cellulitis of same leg tx???d with out pt IV tx. Also noted slight yellowish/greenish outline around area ?? Hematoma vs bug bite. Pt elevates legs except to ambulate due to edema and lack of compression stockings P spoke with [facility] no tx atthis time pt to monitor area if gets more red painful warm to touch or swollen call for re eval in meantime can try ice and elevation to see if improves red flags discussed IV_(FLUIDS_AND/OR_MEDICATION), MEDICATION_IM, ORAL_MEDICATION, WOUND_CARE, ORTHOSTATIC_VITAL_SIGNS Written by Medical instED on 2025-06-16
--- OUTSIDE RECORDS SUMMARY | 2025-09-12 05:46 | XMS_ITS | Encounter Summary ---
Author Organization [facility] Address [address] [place] [address] Phone Care Team Providers Care Wardrobe Manager Name Role Phone Raven Lyons MD Primary Care Provider + Encounter Details Date Type Department Care Team (Late st Contact Info) Description 01/28/2021 Documentation Only [facility] [address] [place] [address] Jena Roger MA Social History Tobacco Use Types Packs/Day Years Used Date Smoking Tobacco: Never Alcohol Use Standard Drinks/Week Comments No 0 (1 standard drink = 0.6 oz pur e alcohol) Comments Unknown Sex and Gender Information Value Date Recorded Sex Assigned at Not on file Legal Sex Female 4:56 PM EST Gender Identity Not on file Sexual Orientation Not on file documented as of this encounter Plan of Treatment Pending Results Name Type Priority Associated Diagnoses Date /Time CBC (Includes Diff/Plt) (External Lab) Ext Result Console Routine 01/02/2021 PTH, Intact (External Lab) Ext Result Console Routine 01/07/2021 Vitamin D, 25-OH (D2,D3) (External Lab) Ext Result Console Routine 01/07/2021 documented as of this encounter Procedures Procedure Name Priority Date/Time Associated Diagnosis Comments RENAL FUNCTION PANEL (EXTERNAL LAB ENTRY) Routine 01/07/2021 RENAL FUNCTION PANEL (EXTERNAL LAB ENTRY) Routine 01/02/2021 documented in this encounter Results * Renal Function Panel (External Lab) (01/07/2021) eGFR Non-Afr Bel[place]an 56 eGFR 65 Calcium 10.4 mg/dL Albumin (Blood) 4.3 g/dL Creatinine 1.0 mg/dL Blood specimen (specimen) 01/07/2021 us Historical Provider LAB BLOOD ORDERABLES Erika l Result * Renal Function Panel (External Lab) (01/02/2021) Glucose 101 mg/dL BUN 18 mg/dL eGFR Non-Afr [place] 57 eGFR 67 Sodium 140 mEq/L Potassium 4.6 mEq/L Chloride 101 Carbon Dioxide 27 mmol/L Creatinine 1.0 mg/dL Anion Gap 12 Blood specimen (specimen) 01/02/2021 us Historical Provider LAB BLOOD ORDERABLES Erika l Result documented in this encounter Visit Diagnoses Not on filedocumented in this encounter Care Teams Wardrobe Manager Relationship Specialty Start Date End Date Raven Lyons MD [address] [place] [address] PCP - General Dental Strategic Marketing Leader 06/03/23 documented as of this encounter
--- OUTSIDE RECORDS SUMMARY | 2025-09-12 05:46 | XMS_ITS | Encounter Summary ---
Author Organization [facility] Address [address] [place] [address] Phone Care Team Providers Care Assistant Designer Name Role Phone Raven Lyons MD Primary Care Provider + Encounter Details Date Type Department Care Team (Late st Contact Info) Description 03/04/2023 Telephone [facility] [address] [place] [address] Jemima Gordillo Social History Tobacco [...] on filedocumented in this encounter Care Teams Assistant Designer Relationship Specialty Start Date End Date Raven Lyons MD [address] [place] [address] PCP - General Dental Computer Game Tester 06/03/23 documented as of this encounter
--- OUTSIDE RECORDS SUMMARY | 2025-09-12 05:46 | XMS_ITS | Clinical Summary ---
Author Organization [facility] Address [address] [place] [address] Phone Care Team Providers Care Machine Burrer Name Role Phone Raven Lyons MD Primary Care Provider + Allergies Active Allergy Reactions Criticality Noted Date Comments Codeine 02/26/2021 Lisinopril Other (see comments) 01/25/2021 Loratadine Other (see comments) 01/25/2021 Quetiapine Other (see comments) 01/25/2021 Sertraline Other (see comments) 01/25/2021 Medications albuterol HFA (PROVENTIL HFA;VENTOLIN HFA) 108 (90 Base) MCG/ACT inhaler Comments: Patient Notes: TAKE 2 PUFFS BY MOUTH EVERY 4 HOURS NEEDED FOR WHEEZING Active amLODIPine (NORVASC) 5 MG tablet Take 1 tablet by mouth 1 (one) time each day Active aspirin (ST HILARY) 81 MG EC tablet Take 1 tablet by mouth 1 (one) time each day Active buPROPion XL (WELLBUTRIN XL) 300 MG 24 hr tablet Active carvedilol (COREG) 12.5 MG tablet Comments: Patient Notes: TAKE 1 TABLET BY MOUTH TWICE A DAY Duration: 30 Active cholecalciferol (VITAMIN D-3) 25 MCG (1000 UT) capsule Take 1 capsule by mouth 1 (one) time each day Active estradiol (ESTRACE) 0.1 MG/GM vaginal cream Active fluticasone-salm eterol (Advair HFA) 230-21 MCG/ACT inhaler Acti ve fluvoxaMINE Maleate ER 100 MG capsule sustained-releas e 24 hr Active prazosin (MINIPRESS) 2 MG capsule Active rosuvastatin (CRESTOR) 5 MG tablet Active torsemide (DEMADEX) 20 MG tablet Take 20 mg by mouth 2 (two) times a day 1 Active levothyroxine (SYNTHROID, LEVOTHROID) 125 MCG tablet Take 125 mcg by mouth 1 (one) time each day 1 Active ARIPiprazole (ABILIFY) 2 MG tablet 1 Active traMADol (ULTRAM) 50 MG tablet 1 Active oxyCODONE (ROXICODONE) 5 MG immediate release tablet 1 Active hydrOXYzine (ATARAX) 50 MG tablet Take 50 mg by mouth 1 (one) time each day if needed 1 Active fluticasone (FLONASE) 50 MCG/ACT nasal spray fluticasone propionate 50 mcg/actuation nasal spray,suspensio n Active baclofen (LIORESAL) 10 MG tablet 1 Active acetaminophen (TYLENOL 8 HOUR) 650 MG 8 hr tablet Arthritis Pain Relief (acetaminophen) ER 650 mg tablet,extend release Active Umeclidinium [place] (Incruse Ellipta) 62.5 MCG/INH aerosol powder Incruse Ellipta 62.5 mcg/actuation powder for inhalation INHALE 1 PUFF BY MOUTH EVERY 24 HOURS Active Tiotropium [place] Monohydrate (Spiriva Respimat) 1.25 MCG/ACT aerosol solution Spiriva Respimat 1.25 mcg/actuation solution for inhalation Active Dapagliflozin Propanediol (Farxiga) 10 MG tablet Take 1 tablet by mouth 1 (one) time each day 90 tablet 11 2 Active allopurinol (ZYLOPRIM) 100 MG tablet TAKE ONE TABLET BY MOUTH ONCE DAILY 90 tablet 1 3 Active amphetamine-dext roamphetamine (ADDERALL) 5 MG tablet 3 Active Active Problems Problem Noted Date Diagnosed Date Acute nontraumatic kidney injury 01/25/2021 Asthma 01/25/2021 Chronic kidney disease stage 2 01/25/2021 Dysplasia of cervix uteri 01/25/2021 Edema 01/25/2021 Essential hypertension 01/25/2021 Hyperglycemia 01/25/2021 Hyperlipidemia 01/25/2021 Hyperthyroidism 01/25/2021 Mixed anxiety and depressive disorder 01/25/2021 Obesity 01/25/2021 Obstructive sleep apnea syndrome 01/25/2021 Osteoarthritis of knee 01/25/2021 Osteoarthritis of right hip joint 01/25/2021 Scoliosis deformity of spine 01/25/2021 Family History Medical History Relation Comments Cancer Mother breast Dementia Mother Heart disease Mother Hypertension Mother Cancer Sibling sister-breast Relation Status Comments Father Mother Sibling Social History Tobacco Use Types Packs/Day Years Used Date Smoking Tobacco: Never Smokeless Tobacco: Never Tobacco Cessation:Counseling Given: Not Answered Alcohol Use Standard Drinks/Week Comments No 0 (1 standard drink = 0.6 oz pur e alcohol) Comments Unknown Sex and Gender Information Value Date Recorded Sex Assigned at Not on file Legal Sex Female 4:56 PM EST Gender Identity Not on file Sexual Orientation Not on file Last Filed Vital Signs Vital Sign Reading Time Taken Comments Blood Pressure 152/82 06/03/2023 2:57 PM EDT Pulse 72 06/03/2023 2:57 PM EDT Temperature - - Respiratory Rate - - Oxygen Saturation 93% 06/03/2023 2:57 PM EDT Inhaled Oxygen Concentration - - Weight 119 kg (263 lb) 06/03/2023 2:57 PM EDT Height 160 cm (5' 3 ) 02/26/2021 1:30 PM EDT Body Mass Index 46.59 02/26/2021 1:30 PM EDT Plan of Treatment Health Maintenance Due Date Last Done Comments Breast Cancer Screening 1950 Colorectal Cancer Screening: Annual FOBT 01/11/2000 Colorectal Cancer Screening: Colonoscopy 01/11/2000 Colorectal Cancer Screening: Sigmoidoscopy 01/11/2000 Diabetes: Ophthalmology Exam 06/03/2023 Diabetes: Pedal Pulse Checked 06/03/2023 Diabetes: Sensory Foot Exam 06/03/2023 Diabetes: Visual Foot Exam 06/03/2023 Diabetes: Hemoglobin A1C 09/02/2023 06/03/2023, 08/22 Influenza Vaccine (#1) 2025 , 07/04/2020, 06/04/2019, Additional history exists Pneumococcal Vaccine: 50+ Years Completed 11/30/2018, 11/18/2016, 01/21/2016, Additional history exists Pneumococcal Vaccine: Peds (0 to 5 Years) and At-Risk Patients (6 to 49 Years) Discontinued 11/30/2018, 11/18/2016, 01/21/2016, Additional history exists Hepatitis B Vaccine Aged Out No longe r eligible based on patient's age to complete this topic Procedures Procedure Name Priority Date/Time Associated Diagnosis Comments HEMOGLOBIN A1C Routine 06/03/2023 3:30 PM EDT Acute renal failure syndrome (HCC) Chronic kidney disease stage 2 Essential hypertension from Last 3 Months or Most Recently Relevant to Health Maintenance Results * (ABNORMAL) Hemoglobin A1c (06/03/2023 3:30 PM EDT) Hemoglobin A1C 5.7(H) (4.0-5.6) % [facility] Comment: MONITORING: In known diabetic patients, hemoglobin A1c targets should be discussed with health care provider. DIAGNOSTIC USE: The [place] Diabetes Association (ADA) and the World Health Organization (WHO) recommend the use of HbA1c to diagnose diabetes using a threshold of 6.5%. Patients who have an HbA1c between 5.7% and 6.4% are considered at increased risk for developing diabetes in the future. CAUTION: Falsely low HbA1c results may be observed in patients with hemolytic anemia, homozygous forms of abnormal hemoglobin (e.g. SS, CC, SC), , recent blood loss or hemoglobin F greater than 7%. Fructosamine may be used as an alternate test in these cases. REFERENCE: ADA: Standards of Medical Care in Diabetes 2020, The Journal of Clinical and Applied Research and Education Volume 43, Supplement 1 Testing performed or reported by [facility], a Service of [facility], [address] [place] [address] Enoch Wang MD, Quality Liaison [facility]# [id number] Blood specimen (specimen) Venous blood / Unknown 06/03/2023 3:30 PM EDT 06/03/2023 3:39 PM EDT us Slim Chua MD LAB BLOOD ORDERABLES Final Re sult [facility] from Last 3 Months or Most Recently Relevant to Health Maintenance Insurance [facility] ([id number]) [facility] ([id number]) Care Teams Machine Burrer Relationship Specialty Start Date End Date Raven Lyons MD [address] [place] [id number] PCP - General Dental Cattle Sticker 06/03/23
--- OUTSIDE RECORDS SUMMARY | 2025-09-12 05:46 | XMS_ITS | Continuity of Care Document ---
Author Organization [facility], 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 Plan of Treatment Reminders Order Date Submit Date Provider Last Modified By Organization Details Last Modified Time Details Appointments None recorded. Lab rapid SARS CoV 2 Ag, QL IA, respiratory specimen 2024 025 [facility], [address] [place] [address], [id number] 21:56:58 rapid flu (A+B) 2024 025 [facility], [address] [place] [address], [id number] 21:51:59 Referral None recorded. Procedures None recorded. Surgeries [...] Organization Details Recorded Time Lumbosacral radiculopat hy [id number] Channing Myles MD [address] [place] [address],[address], [place], [address], [employer] 16:20:58 Osteoarthri tis of hip 433705796 Channing Myles MD [address] [place] [address],[address], [place], [address], [employer] 16:21:35 Osteoarthri tis of left knee joint 2634118179815 09 Active Magdiel Myles MD [address] [place] [address],[address], [place], [address], [place] [facility] 5 16:21:44 Osteoarthri tis of right knee joint 8910029920202 00 Active Magdiel Myles MD [address] [place] [address],[address], [place], [address], [place] [facility] [employer] 16:21:50 Scoliosis of lumbar spine 257318211 Active Magdiel Myles MD [address] [place] [address],[address], [place], [address], [place] [facility] [employer] [employer] 16:21:58 Resting tremor 55398591 Active Magdiel Myles MD [address] [place] [address],[address], [place], [address], [place] [facility] 16:22:07 Hypothyroid ism 51238492 Active Magdiel Myles MD [address] [place] [address],[address], [place], [address], [place] [employer] 16:23:04 Asthma 108292341 Active 2020 Magdiel Myles MD [address] [place] [address],[address], [place], [address], [place] [employer] 5 16:20:12 Chronic kidney disease stage 2 366009276 Active 2020 Magdiel Myles MD [address] [place] [address],[address], [place], [address], [place] [facility] [employer] [employer] 16:20:16 Essential hypertensio n 95040701 Active 2020 Magdiel Myles MD [address] [place] [address],[address], [place], [address], [place] [employer] 16:20:19 Hyperlipide robin 26451138 Active 2020 Magdiel Myles MD [address] [place] [address],[address], [place], [address], [place] [employer] [employer] 16:20:22 Hyperthyroi dism 30036077 Active 2020 Magdiel Myles MD [address] [place] [address],[address], [place], [address], [employer] [place] [facility] 16:20:29 Edema 667305531 Active 2020 Magdiel Myles MD [address] [place] [address],[address], [place], [address], [employer] [place], [facility] 16:21:02 Mixed anxiety and depressive disorder 078153541 Active 2020 Magdiel Myles MD [address] [place] [address],[address], [place], [address], [employer], [facility] 16:21:07 Obstructive sleep apnea syndrome 34097865 Active 2020 Magdiel Myles MD [address] [place] [address],[address], [place], [address], [employer], [facility] 16:21:16 Osteoarthri tis of knee 628436982 Active 2020 Magdiel Myles MD [address] [place] [address],[address], [place], [address], [employer], [facility] 16:21:39 Osteoarthri tis of right hip joint 9135262228144 07 Active 2020 Magdiel Myles MD [address] [place] [address],[address], [place], [address], [employer], [facility] 16:21:47 Problem Notes None recorded. Medical Equipment None Reported. Allergies Allergen ID Allergen Name Allergen Category Reaction Reaction Severity Criticality Documentation Date Start Date Code Code System Note Provider Name and Address Organization Details Recorded Time 05935 lisinopri l medicatio n Not available Not available Not available 10/10/2024 59473 RxNorm Not Available [facility] - [facility] 11:33:21 30640 Seroquel medicatio n Not available Not available Not available 10/10/2024 97936 RxNorm Not Available [facility] 5 11:33:21 70692 Claritin medicatio n Not available Not available Not available 10/10/202403832 6 [facility] 11:33:21 44874 codeine medicatio n Not available Not available Not available 04/21/2025 2670 [facility] Available [facility] 15:38:18 38374 Zoloft medicatio n Not available Not available Not available 07/24/2025 00846 Rx[facility] Not Available [facility] 15:48:26 77816 loratadin e medicatio n Not available Not available Not available 07/24/2025 20641 RxNorm Not Available [facility] [employer] - prod 5 17:09:57 25856 quetiapin e medicatio n Not available Not available Not available 07/24/2025 21269 RxNorm Not Available [facility] [employer] - prod 17:09:57 31197 sertralin e medicatio n Not available Not available Not available 07/24/2025 55295 RxNorm Not Available [facility] [employer] - prod 17:09:57 96610 amoxicill in medicatio n Not available Not available Not available 09/09/2025 723 RxNorm Raisa Tejeda MD [address] [place] [address],[address], [place], [address] [place] [address] [employer] 5 10:51:44 Medications Name Sig Start Date [...] No t Available Vitals Date Recorded Body temperature Oxygen saturation Heart rate Respiratory rate Systolic And Diastolic Provider Name and Address Organization Details Last Updated DateTime 5 98.4 [degF] 98 % 72 /min 16 /min 132/70 mm[Hg] Not Available [facility] 5 17:09:10 Social History None recorded. Functional Status None recorded. Mental Status None recorded. Family History Nothing Reported. Medical History No medical history recorded. Gynecological HistoryNo gynecological history recorded. Obstetrics History GPAL:G 0 P 0 0 0 0 Past Encounters Encounter ID Performer Location Encounter Start Date Encounter Closed Date Diagnosis/Indication Diagnosis SNOMED-CT Code Diagnosis ICD10 Code Diagnosis IMO Codes Diagnosis Note [id number] Brigido Antony MD [facility] ED Medical [facility] [address] [place] [address] 06/28/2025 10:00:03 06/28/2025 15:06:24 Dermal mycosis 13573849 B36.9 99176 Eruption [id number] 1 [id number] Tatiana Hartley MD [facility] ED Medical [facility] [address] [place] [address] 07/24/2025 17:09:06 07/25/2025 15:42:41 Viral upper respiratory tract infection 641589001 J06.9 [id number] 75 year old female being evaluated for [...] assessment and plan as documented by the lab clerk. I provided real-time medical direction for this encounter and was immediatel y available to provide additional phone-base d assistance as needed. We discussed the diagnostic uncertaint y of home visits and associated risks. We discussed the need to seek care urgently/e mergently in the setting of any new or worsening symptoms. Health Concerns Section Related Observation LastModified by Organization Detai ls LastModified Time None Recorded Concern Status LastModified by Organization Details LastModified Time None Recorded Payers Encounter Date Sequence Insurance Name Policy Number Policy Lyons Covered Member ID Lyons Member ID Guarantor Name 07/24/2025 1 [facility] - DOS ON OR AFTER 2022 - DUAL ELIGIBLE - SNF OPTIONS AND ONE CARE (MEDICARE REPLACEMENT/ADV ANTAGE - HMO) Sharon Nugent [id number] Sharon Nugent Notes Date Note Type Note Provider Name and Address Organization Details Recorded Time 07/24/2025 text/html [facility] Nurse Triage Notes (Katie Frias): Reason For Request: PCP RN reporting ear congestion and loss of voice Patient Reports: External Ear concerns Denies: Sudden onset of dental pain, unable to manage own secretions Nosebleed lasting longer than one hour; unable to stop bleeding Throat swelling/difficult swallowing Dental pain and fever, able to maintain secretions Sinus infection Conjunctivitis Chief Complaints: Ear Complaint, Common Cold PMH: Congestive Heart Failure, COPD/Asthma, Coronary Artery Disease, Hypertension, Hyperlipidemia, Urinary Tract Infections (UTI), Hypothyroidism, Gout PMH Reviewed at 07/24/2025 - 15:48 Allergies Reviewed at 07/24/2025 - 15:48 Comments: 75 y.o female complains of Ear Complaint, Common Cold symptoms Patients RN at PCP making referral Patient is complaining of bilateral ear and nasal congestion and losing her voice with scratchy feeling in her throat for about one week Denies any coughing, nausea, vomiting or diarrhea. denies any chest pain or shortness of breath Has tried Tylenol and cough drops but no decongestants - with little relief. requesting insted visit for assessment. I provided information on the mobile health provider response time and advised the patient and/or caregiver to monitor reported signs and symptoms. I discussed the warning signs of when to seek emergency care. 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 ................... ................... ................... ................... ................... ................... ........ 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 Pt states she is on day four of not feeling well. She endorses sinus congestion, mild dry cough and hoarse voice. She states she called her PCPs office but they were not available to see her. She states she has never had this before so she wanted to be evaluated to make sure she wasn't really sick. She states she has been able to keep baseline PO intake and has been taking cough drops and OTC cough medication with mild effect. She denies chest pain, diff breathing/sob, n/v/d, abd pain or other complaints at this time. Pt was found opening door, CAOx4, airway open and patent, breathing non labored, able to speak in full sentences, -JVD, -HEENT, skin PWD with good turgor, mucous membranes pink and moist, pupils PERRL, abd soft non tender/distended, -edema/swelling, +CMSx4, lungs CTA, afebrile, Rapid Covid/Flu (-), throat pink and non irritated appearing. URI Pt was assessed. Rapid tests conducted and results uploaded to Pts portal. [facility] consulted. Pt provided reassurance. Red flags discussed. ALL times are approx. [facility] Lab Orders: rapid SARS CoV 2 Ag, QL IA, respiratory specimen: Performed rapid flu (A+B): Performed ................... ................... ................... ................... ................... ................... ................... ........ [facility] Consulted: Tatiana Hartley ................... ................... ................... ................... ................... ................... ................... ........ Disposition: Fulfilled Tatiana Hartley MD [address] [place] [facility], [place], [address], [facility] [employer] 07/24/2025 21:08:47 OBGyn Episode No OBEpisode recorded.
--- OUTSIDE RECORDS SUMMARY | 2025-09-12 05:46 | XMS_ITS | Encounter Summary ---
Author Organization [facility] Address [address] [place] [address] Encounters * CPT with Medical [facility] at [facility] on 2025-07-25 { reasonForRequest : PCP RN reporting ear congestion and loss of voice , pa tientReports : External Ear concerns , denies :[ Sudden onset of dental pain, unable to manage own secretions , Nosebleed lasting longer than one hour; unable to stop bleeding , Throat swelling/difficult swallowing , Dental pain and fever,able to maintain secretions , Sinus infection , Conjunctivitis ], ch iefComplaints : Ear Complaint, Common Cold , pmh : Congestive Heart Failure, COPD/Asthma, Coronary Artery Disease, Hypertension, Hyperlipidemia, Urinary Tract Infections(UTI), Hypothyroidism, Gout , allergies : Lisinopril, Seroquel, Claritin, Codeine, Zoloft , otherAllergies :null, painAssessment : , visitO utcome : , additionalComments : 75 y.o female complains of Ear Complaint, Common Cold symptoms\n\nPatients RN at PCP making referral \nPatient is complaining of bilateral ear and nasal congestion and losing her voice with scratchy feeling in her throat for about one week\nDenies any coughing, nausea, vomiting or diarrhea. \ndenies any chest pain or shortness of breath \nHas tried Tylenol and cough drops but no decongestants - with little relief. \nrequesting insted visit for assessment. \nI provided information on the mobile health provider response time and advised the patient and/or caregiver to monitor reported signs and symptoms. I discussed the warning signs of when to seek emergency care. } Dispatched to the call address for the female with cold like symptoms. Pt states she is on day fourof not feeling well. She endorses sinus congestion, mild dry cough and hoarse voice. She states shecalled her PCPs office but they were not available to see her. She states she has never had this before so she wanted to be evaluated to make sure she wasn't really sick. She states she has been ableto keep baseline PO intake and has been [...] moist, pupils PERRL, abd soft non tender/distended, - edema/swelling, +CMSx4, lungs CTA, afebrile, Rapid Covid/Flu (-),throat pink and non irritated appearing. URI Pt was assessed. Rapid tests conducted and results uploaded to Pts portal. [facility] consulted. Pt provided reassurance. Red flags discussed. ALL times are approx. IV_(FLUIDS_AND/OR_MEDICATION), MEDICATION_IM, ORAL_MEDICATION, POC_BLOODWORK Written by Medical [facility] on 2025-07-25
--- OUTSIDE RECORDS SUMMARY | 2025-09-12 05:46 | XMS_ITS | Continuity of Care Document ---
Author Organization [facility] [employer] [facility] Address [address] [place] [address] Care Team Providers Care Automatic Stacker Name Role Phone TIMOTHY WAKEFIELD Primary Care Provider [phone] HIM CCA OTHER Assessment No assessment recorded. Plan of Treatment Reminders Order Date Submit Date Provider Last Modified By Organization Details Last Modified Time Details Appointments None recorded. Lab culture, urine 2024 PICKENS [facility] (Centralized Electronic Ordering - All Locations), Patient Can Go To The Location Of Their Choice, [facility] 20:05:55 urinalysis, dipstick 2024 [facility], [address] [place] [address], [phone] 12:29:28 BMP, serum or plasma 2024 025 [facility], [address] [place] [address], [id number] 5 12:29:29 Referral None recorded. Procedures None recorded. Surgeries None recorded. Imaging None recorded. Medication Orders sulfamethox azole 800 mg-trimetho prim 160 mg tablet 2024 025 JUAN [facility][id number], [address] [place], [address], 10:49:03 sulfamethox azole 800 mg-trimetho prim 160 mg tablet 2024 025 [email or web address] [facility] #[id number], [address] [place], [address], 10:49:19 Patient TargetsNo targets recorded. Patient InstructionsNo instructions recorded. Reason for Referral None Reported. Results Created Date Observation Date Name Description Value Unit Range Abnormal Flag Note LastModifiedBy Organization Detail LastModifiedTime 09/09/2009/09/2025 URINE CULTU RE, UROLO GY RADHA P urine culture, urology workup Prelim inary report Not Available [facility] ([facility]) [address] [facility], [place], [address], 09/10/2025 20:05:55 09/09/2009/10/2025 URINE CULTU RE, UROLO GY RADHA P result 1 COMMEN T Micro biolo gical testi ng to rule out the prese nce of possi ble patho gens is in progr ess. Not Available [facility] ([facility]) [address] [facility], [place], [address], 09/10/2025 20:05:55 Result Notes None recorded. Problems Name Problem SNOMED Code Status Onset Date Resolution Date Notes Provider Name and Address Organization Details Recorded Time Lumbosacral radiculopat hy 6643259 Channing Myles MD [address] [place] [address],[address], [place], [address], [employer] 16:20:58 Osteoarthri tis of hip 009665394 Channing Myles MD [address] [place] [address],[address], [place], [address], [employer] 16:21:35 Osteoarthri tis of left knee joint [id number] 09 Channing Myles MD [address] [place] [address],[address], [place], [address], e(ye)[employer], [employer] 5 16:21:44 Osteoarthri tis of right knee joint [id number] 00 Channing Myles MD [address] [facility],[address], [place], [address], e(ye)BRAIN, [employer] 5 16:21:50 Scoliosis of lumbar spine 133562116 Channing Myles MD [address] [place] [address],[address], [place], [address], [place] [employer], [employer] 16:21:58 Resting tremor 73720286 Active Magdiel Myles MD [address] [place] [address],[address], [place], [address], [place] [employer] 16:22:07 Hypothyroid ism 13894044 Active Magdiel Myles MD [address] [place] [address],[address], [place], [address], [place] [facility], [employer] 16:23:04 Asthma 587750566 Active 2020 Magdiel Myles MD [address] [place] [address],[address], [place], [address], [place] [facility], [employer] 16:20:12 Chronic kidney disease stage 2 840993051 Active 2020 Magdiel Myles MD [address] [place] [address],[address], [place], [address], [place] [employer], [employer] 16:20:16 Essential hypertensio n 66697623 Active 2020 Magdiel Myles MD [address] [place] [address],[address], [place], [address], [place] [employer], [employer] 16:20:19 Hyperlipide robin 75026056 Active 2020 Magdiel Myles MD [address] [place] [address],[address], [place], [address], [place] [employer], [employer] 16:20:22 Hyperthyroi dism 52866725 Active 2020 Magdiel Myles MD [address] [place] [address],[address], [place], [address], [place] [employer], [employer] 16:20:29 Edema 108248632 Active 2020 Magdiel Myles MD [address] [place] [address],[address], [place], [address], [place] [employer], [employer] 16:21:02 Mixed anxiety and depressive disorder 566277419 Active 2020 Magdiel Myles MD [address] [place] [address],[address], [place], [address], [employer], [employer] 5 16:21:07 Obstructive sleep apnea syndrome 05620170 Active 2020 Magdiel Myles MD [address] [place] [address],[address], [place], [address], [employer] [place] [facility], [employer] 5 16:21:16 Osteoarthri tis of knee 254618665 Active 2020 Magdiel Myles MD [address] [place] [address],[address], [place], [address], [employer], [employer] 5 16:21:39 Osteoarthri tis of right hip joint 1911669027647 07 Active 2020 Magdiel Myles MD [address] [place] [address],[address], [place], [address], e(ye)[employer], [employer] 5 16:21:47 Problem Notes None recorded. Medical Equipment None Reported. Allergies Allergen ID Allergen Name Allergen Category Reaction Reaction Severity Criticality Documentation Date Start Date Code Code System Note Provider Name and Address Organization Details Recorded Time 25715 lisinopri l medicatio n Not available Not available Not available 10/10/2024 98972 RxNorm Not Available [employer] - [employer] 5 11:33:21 46880 Seroquel medicatio n Not available Not available Not available 10/10/2024 38176 RxNorm Not Available [employer] - production 5 11:33:21 96735 Claritin medicatio n Not available Not available Not available 10/10/2024 91431 6 RxNorm Not Available [facility] - production 5 11:33:21 81667 codeine medicatio n Not available Not available Not available 04/21/2025 2670 RxNorm Not Available [facility] - production 5 15:38:18 66335 Zoloft medicatio n Not available Not available Not available 07/24/2025 28230 RxNorm Not Available [facility] - production 15:48:26 55516 loratadin e medicatio n Not available Not available Not available 07/24/2025 38712 RxNorm Not Available [employer]an - External [employer] - prod 17:09:57 78842 quetiapin e medicatio n Not available Not available Not available 07/24/2025 21935 RxNorm Not Available juan - External Data [employer] - prod 17:09:57 55594 sertralin e medicatio n Not available Not available Not available 07/24/2025 94742 RxNorm Not Available [employer]an - External [employer] - prod 17:09:57 64766 amoxicill in medicatio n Not available Not available Not available 09/09/2025 723 RxNorm Raisa Tejeda MD [address] [place] [address],[address], [place], [address], [place] [employer] 10:51:44 Medications Name Sig Start Date Stop [...] Address Organization Details Last Updated DateTime 5 97.7 [degF] 99 % 75 /min 18 /min 164/94 mm[Hg] Not Available [facility] [employer] 5 10:20:31 Social History None recorded. Functional Status None recorded. Mental Status None recorded. Family History Nothing Reported. Medical History No medical history recorded. Gynecological HistoryNo gynecological history recorded. Obstetrics History GPAL:G 0 P 0 0 0 0 Past Encounters Encounter ID Performer Location Encounter Start Date Encounter Closed Date Diagnosis/Indication Diagnosis SNOMED-CT Code Diagnosis ICD10 Code Diagnosis IMO Codes Diagnosis Note [id number] Raisa Tejdea MD [facility] ED Medical [facility] [address] [place] [address] 09/09/2025 10:20:28 09/11/2025 15:19:41 Urinary symptoms 768883586 R39.9 [id number] Evaluation in the field was performed by my track sweeper colleague, as noted above, I provided real-time direction and supervisio n for this visit.This is a 75yo F PMHx CHF, COPD/asthm a, HTN recently hospitaliz ed for UTI treated with amoxicilli n who is p/w recurrent urinary symptoms and low abdominal cramping. Denies fevers. Unsure what UCx in hospital caused. No confusion currently. Denies flank pain, stones, anatomic abnormalit ies of urinary sx. No polyuria or polydipsia , no known DM. VS: afebrile, mildly elevated BPParamedi c exam: no CVA TTPPOC testing: UA + nitrites, leuks, and blood also with +++glucose , BMP Cr 1.1 K 3.3 glucose 112 Impression : (1) recurrent UTI presumed (2) glycosuria , likely error of rapid urine strip as serum glucose normal; (3) mild hypokalemi aPlan: (1) empiric tx Bactrim, f/up UCx and tailor abx as needed; (2) PCP f/up for formal UA; and (3) will defer tx given starting Bactrim and can cause hyperkalem iaRed flags reviewed, pt expressed understand ing For PCP: repeat UA to ensure not glycosuria , work up for recurrent UTIs We discussed the diagnostic uncertaint y of [...] shortness of breath, cough, chest pain, fever. Health Concerns Section Related Observation LastModified by Organization Detai ls LastModified Time None Recorded Concern Status LastModified by Organization Details LastModified Time None Recorded Payers Encounter Date Sequence Insurance Name Policy Number Policy Lyons Covered Member ID Lyons Member ID Guarantor Name 09/09/2025 1 [facility] - DOS ON OR AFTER 2022 - DUAL ELIGIBLE - CARE HOME OPTIONS AND ONE CARE (MEDICARE REPLACEMENT/ADV ANTAGE - HMO) Sharon Nugent [id number] Sharon Nugent Notes Date Note Type Note Provider Name and Address Organization Details Recorded Time 09/09/2025 text/html CRC Nurse Triage Notes (Katie Frias): Reason For Request: for tomorrow 09/09/25 UTI Patient Reports: Painful urination; Frequent and increased urination with flank pain; Painful urination with or without fever Denies: Unable to void greater than 5 hours Erection that will not go away after 2 hours Fall or trauma that results in urinary incontinence in the setting of pain Fall or injury that results in incontinence in the absence of pain Lower back pain either unilateral or bilateral, unable to void, painful urination -hematuria Inability to fully empty bladder Chief Complaints: Urinary Symptoms PMH: Congestive Heart Failure, COPD/Asthma, Coronary Artery Disease, Hypertension, Hyperlipidemia, Urinary Tract Infections (UTI), Hypothyroidism, Gout PMH Reviewed at 09/08/2025 - 16:50 (ET) Allergies Reviewed at 09/08/2025 - 16:50 (ET) Comments: 75 y.o female complains of Urinary Symptoms Patient self referring patient was in hospital for UTI last week. finished course of amoxicillin 2 days ago denies any fever, chills, or bodyaches denies any nausea or vomiting does have loose stools endorses cramping in lower abdomen pain and burning with urination dark cloudy yellow and is very odoriferous. requesting insted visit for tomorrow. I provided information on the [facility] provider response time and advised the patient and/or caregiver to monitor reported signs and symptoms. I discussed the warning signs of when to seek emergency care. Foot Worker Organization Information for Danilo Larsen [employer] Legal Name: [employer]. Address: [address] [place] [address], Decker Operator: Americo Burgos MD CLIA No.: [id number] Foot Worker POC Test Results from [employer] Urine Dipstick (10:21:19) Urine leukocytes: 125+ZAC Urine nitrites: +NIT Urine urobilinogen: 0.2URO Urine protein: -PRO Urine pH: 7.0pH Urine blood: +BLO Urine specific gravity: 1.010SG Urine ketones: -KET Urine bilirubin: -BRIAN Urine glucose: 1000+++GLU iSTAT Chem8+ (10:40:03) Na: 143mEq/L K: 3.3mEq/L Cl: 102mEq/L iCa: 1.29mmol/L TCO2: 28mmol/L Glu: 112mg/dL BUN: 23mg/dL Crea: 1.1mg/dL Hct: 43% Hb: 14.6g/dL Ammol/L Cartridge Number: [id number] .................. .................. .................. .................. .................. .................. .................. ............... Foot Worker Note From Danilo Larsen: [place]patch the home of a 75-year-old female patient with urinary issues. Patient has had some urinary burning, melodious odor and eight out of 10. Urinary pain for the last three days. Patient was hospitalized two weeks ago for a severe urinary tract infection. 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 Patient is moving air. Well, both lungs are clear and patient has an oxygen saturation of 98% on room air. Patient skin is warm and dry and of appropriate color. Patient has had less appetite, but has been drinking lots of water, has been urinating more than usual and suffers from bowel incontinence but that is her baseline. At this visit, the patient was assessed and had her vitals taken. Patient was able to provide a urine sample and a urine dipstick test was taken. A urine culture was also taken from this. Results were sent in to the [facility]. [facility] [place] was contacted in ordered bloodwork, this was done without incident and blood was run on an istat. Those results were forwarded into the [facility]. Doctor then ordered one tablet of Bactrim be given, and a prescription sent to the patient s pharmacy. Patient was warned of signs and symptoms, and went to call 911 that should things get worse. [facility] Lab Orders: culture, urine: Performed urinalysis, dipstick: Performed BMP, serum or plasma: Performed [facility] Medication Orders: sulfamethoxazole 800 mg-trimethoprim 160 mg tablet: Administered .................. .................. .................. .................. .................. .................. .................. ............... [facility] Consulted: Raisa Tejeda .................. .................. .................. .................. .................. .................. .................. ............... Disposition: Fulfilled Raisa Tejeda MD [address] [facility],[address] [facility], [place], [address], web care [employer], [facility] 09/09/2025 12:15:25 OBGyn Episode No OBEpisode recorded.
--- OUTSIDE RECORDS SUMMARY | 2025-09-12 05:46 | XMS_ITS | Continuity of Care Document ---
Author Name [facility], Medical Address [address] [place] [address] Organization Unknown Address [address] [place] [address] Medications No known medications Problems No known problems
--- OUTSIDE RECORDS SUMMARY | 2025-09-12 05:46 | XMS_ITS | Encounter Summary ---
Author Organization [facility] Address [address] [place] [address] Phone Care Team Providers Care Photo Cartographer Name Role Phone Raven Lyons MD Primary Care Provider + Encounter Details Date Type Department Care Team (Late st Contact Info) Description 01/28/2021 Orders Only [facility] [address] [place] [address] Provider, MD Amaury Social History Tobacco Use Types Packs/Day Years [...] as of this encounter Plan of Treatment Not on file documented as of this encounter Procedures Procedure Name Priority Date/Time Associated Diagnosis Comments EXT RESULT ENTRY Routine 01/08/2021 documented in this encounter Results * EXT RESULT ENTRY (01/08/2021) us Historical Provider LAB BLOOD ORDERABLES Erika l Result documented in this encounter Visit Diagnoses Not on filedocumented in this encounter Care Teams Photo Cartographer Relationship Specialty Start Date End Date Raven Lyons MD [address] [place] [address] PCP - General Dental Tucking Machine Operator 06/03/23 documented as of this encounter
--- OUTSIDE RECORDS SUMMARY | 2025-09-12 05:46 | XMS_ITS | Continuity of Care Document ---
Author Name [facility], Medical Address [address] [place] [id number] Organization Unknown Address [address] [place] [address] Medications No known medications Problems No known problems
--- OUTSIDE RECORDS SUMMARY | 2025-09-12 05:47 | XMS_ITS | Encounter Summary ---
Author Organization [facility] Address [address] [facility] [address] [place] [address] Encounters * CPT with Medical [facility] at [employer] on 2025-04-29 { reasonForRequest : Pt requesting a wellness check , patientReports : , denies :[ Mulligan Flash, circumferential mulligan , Mulligan reported with black tissue to the area , Open skin area after a fall with uncontrolled bleedin g , Abscess/infection with streaking noted, presence of fever or without ], nerissa fComplaints : Wound Care , pmh : Congestive Heart Failure, COPD/Asthma, Coronary Artery Disease, Hypertension, Hyperlipidemia , allergies : Lisinopril, Seroquel, Claritin, Codeine , otherAllergies :null, painAssessment :&quot ; , visitOutcome : , additionalComments : 75 y.o female complains of Wound Care\nPatient calling reporting she was on an antibiotic for twelve days for cellulitis on L leg. Patient reports she [facility] today [facility] Patient reports L leg is still red and knee \ doesn't look too good\ per her visiting nurse. Patient reports the lower leg started to look a little better on the antibiotic, but \ not on the knee at all\ . Patient denies fever or chills. Patient reports she is having \ extreme pain\ in her L leg, patient also reporting edema in L leg all the way down to her leg. Patient reports nothing makes it better, patient states \ Tylenol makes it worst\ . Patient states she has been elevating the extremity, states having to do so in bed because her recliner broke. Patient reports she takes Torsemide and taking it as prescribed twice daily. Patient reports the redness started approx three weeks ago, after a fall. I provided information on the mobile health provider response time and advised the patient and/or caregiver to monitor reported signs and symptoms. I discussed the warning signs of when to seek emergency care -Awa Powers RN } Was dispatched for a 75 Y/O female complaining of wound care. [facility]OA PT was found sitting in her chair. PT is A/Ox4. PT reported for a few weeks now she has been fighting cellulitis in her legs. PT vitals were obtained and an assessment was performed. PT legs were examined and noted extreme edema in all of her lower extremities. PT reported she was discharged from the hospital on Thursday with PO antibiotics and noticed since she got home the swelling is spreading and the antibiotics did not help reduce the swelling. [facility] was contacted, [facility] suggested the PT go to the ED for IV antibiotics and further medical treatment. 911 was contacted, [facility] arrived on scene and transported the PT to [facility]. Crew cleared ORAL_MEDICATION, WOUND_CARE Written by Medical instED on 2025-04-29
--- OUTSIDE RECORDS SUMMARY | 2025-09-12 05:47 | XMS_ITS | Continuity of Care Document ---
Author Name [facility], Medical Address [address] [place] [id number] Organization Unknown Address [address] [place] [id number] Medications No known medications Problems No known problems
--- OUTSIDE RECORDS SUMMARY | 2025-09-12 05:47 | XMS_ITS | Continuity of Care Document ---
Author Organization [facility] - [facility], Md in[employer] [facility] Address [address] [place] [address] Care Team Providers Care Cane Flume Watchman Name Role Phone TIMOTHY WAKEFIELD Primary Care Provider HIM CCA OTHER Assessment Encounter Date Assessment Date Assessment LastModified by Organization Details LastModified Time 06/16/2025 06/16/2025 Evaluation in the field was performed by my power generation turbine room operator colleague, as noted above, I provided real-time direction and supervision for this visit. This is a 75yo F with chronic peripheral edema presenting for evaluation of redness on her left lower leg. Last night VNA noted an area of redness on the LLE with a small associated bump, possibly an insect bite. Nystatin cream was applied, and VNA requested eval. Today, the bump is gone and the patient has no complaints of leg pain, fever, swelling. PE: General: Awake & alert, NAD Respiratory: Chest rise equal bilat, no increased wob CV: Regular rate, normal peripheral perfusion Ext: On the lower legs there are bilateral small patches of faint redness just above the ankles. No warmth to touch, no tenderness. LLE: No wound, abscess, or other abnormality specifically noted over erythematous area. Impression: Bilateral lower leg edema Plan: -VSS, appears well. Afebrile. -Pt asymptomatic without new acute exam findings. -Has hx of recurrent bilat LE cellulitis and edema. No cellulitis today. Whatever bump was present last night is gone. -No acute treatment needed. F/u PCP. Disposition: Remain at home We discussed the diagnostic uncertainty of home visits and the risk associated with this. In this case, the patient and I felt this to be an acceptable and reasonable amount of risk given the benefit of avoiding an ED visit. We discussed the need to seek care urgently/emerge ntly in the setting of any new or worsening serious symptoms. [email or web address] Not available 06/16/2025 17:19:36 Plan of Treatment Reminders Order Date Submit Date Provider Last Modified By Organization Details Last Modified Time Details Appointments None record ed. Lab None record ed. Referral None record ed. Procedures None record ed. Surgeries None record ed. Imaging None record ed. Medication Orders None record ed. Patient TargetsNo targets recorded. Patient InstructionsNo instructions recorded. Reason for Referral None Reported. Problems Name Problem SNOMED Code Status Onset Date Resolution Date Notes Provider Name and Address Organization Details Recorded Time Lumbosacral radiculopat hy [id number] Channing Myles MD [address] [place] [address],[address], [place], [address], [employer] 5 16:20:58 Osteoarthri tis of hip 183702289 Channing Myles MD [address] [place] [address],[address], [place], [address], [employer], [employer] 5 16:21:35 Osteoarthri tis of left knee joint [id number] 09 Channing Myles MD [address] [place] [address],[address], [place], [address], [place] [employer], [employer] 5 16:21:44 Osteoarthri tis of right knee joint 4385198518625 00 Channing Myles MD [address] [place] [address],[address], [place], [address], [place] [facility] [employer], [employer] 5 16:21:50 Scoliosis of lumbar spine 107090613 Channing Myles MD [address] [place] [address],[address], [place], [address], [facility] [place] [facility] [employer], [employer] 5 16:21:58 Resting tremor 55559621 Channing Myles MD [address] [place] [address],[address], [place], [address], [employer] [place] [facility] [employer], [employer] 5 16:22:07 Hypothyroid ism 08493332 Channing Myles MD [address] [place] [address],[address], [place], [address], [place] [facility] [employer] 16:23:04 Asthma 494957981 Active 2020 Magdiel Myles MD [address] [place] [address],[address], [place], [address], [place] [employer] 16:20:12 Chronic kidney disease stage 2 093154170 Active 2020 Magdiel Myles MD [address] [place] [address],[address], [place], [address], [place] [employer] 16:20:16 Essential hypertensio n 40632654 Active 2020 Magdiel Myles MD [address] [place] [address],[address], [place], [address], [place] [employer] 16:20:19 Hyperlipide robin 90521158 Active 2020 Magdiel Myles MD [address] [place] [address],[address], [place], [address], [place] [employer] 16:20:22 Hyperthyroi dism 74232237 Active 2020 Magdiel Myles MD [address] [place] [address],[address], [place], [address], [place] [facility] [employer] 16:20:29 Edema 063339957 Active 2020 Magdiel Myles MD [address] [place] [address],[address], [place], [address], [place] [employer] 16:21:02 Mixed anxiety and depressive disorder 526040033 Active 2020 Magdiel Myles MD [address] [place] [address],[address], [place], [address], [place] [employer] 16:21:07 Obstructive sleep apnea syndrome 38572026 Active 2020 Magdiel Myles MD [address] [place] [address],[address], [place], [address], [place] [employer] 16:21:16 Osteoarthri tis of knee 763270055 Active 2020 Magdiel Myles MD [address] [facility],[address], [place], [address], [employer] 5 16:21:39 Osteoarthri tis of right hip joint 7850474867353 07 Active 2020 Magdiel Myles MD [address] [facility],[address], [place], [address], [facility] - [employer] 5 16:21:47 Problem Notes None recorded. Medical Equipment None Reported. Allergies Allergen ID Allergen Name Allergen Category Reaction Reaction Severity Criticality Documentation Date Start Date Code Code System Note Provider Name and Address Organization Details Recorded Time 05799 lisinopri l medicatio n Not available Not available Not available 10/10/2024 89849 RxNorm Not Available [facility] 5 11:33:21 81230 Seroquel medicatio n Not available Not available Not available 10/10/2024 76644 Rx[facility] Available [facility] 5 11:33:21 40051 Claritin medicatio n Not available Not available Not available 10/10/2024 79556 6 RxNorm Not Available [facility] 5 11:33:21 13676 codeine medicatio n Not available Not available Not available 04/21/2025 2670 RxNorm Not Available [facility] - [facility] 5 15:38:18 00750 Zoloft medicatio n Not available Not available Not available 07/24/2025 77539 RxNorm Not Available [facility] 5 15:48:26 44826 loratadin e medicatio n Not available Not available Not available 07/24/2025 62189 RxNorm Not Available [employer] - [employer] - prod 5 17:09:57 95509 quetiapin e medicatio n Not available Not available Not available 07/24/2025 23886 RxNorm Not Available [employer] - prod 5 17:09:57 19596 sertralin e medicatio n Not available Not available Not available 07/24/2025 83566 RxNorm Not Available [employer] - prod 17:09:57 45756 amoxicill in medicatio n Not available Not available Not available 09/09/2025 723 RxNorm Raisa Tejeda MD [address] [facility],[address], [place], [address], [facility] - [employer] 10:51:44 Medications Name Sig Start Date Stop [...] and Address Organization Details Last Updated DateTime 97.2 [degF] 94 % 76 /min 20 /min 121/70 mm[Hg] Not Available [facility] - production 17:08:08 Social History None recorded. Functional Status None recorded. Mental Status None recorded. Family History Nothing Reported. Medical History No medical history recorded. Gynecological HistoryNo gynecological history recorded. Obstetrics History GPAL:G 0 P 0 0 0 0 Past Encounters Encounter ID Performer Location Encounter Start Date Encounter Closed Date Diagnosis/Indication Diagnosis SNOMED-CT Code Diagnosis ICD10 Code Diagnosis IMO Codes Diagnosis Note [id number] Trav Ca MD [facility] [address] [address] 05/31/2025 13:51:10 06/01/2025 11:11:34 Pain in right arm 351631391 M79.601 [id number] Magdiel Myles MD [address] [address] 06/02/2025 16:17:52 06/03/2025 00:23:07 Injury of upper arm 220937021 S46.911D [id number] Meghna Correia MD [address] [address] 06/16/2025 17:08:01 06/16/2025 19:40:14 Bilateral lower leg edema 031332500 R60.0 [id number] Health Concerns Section Related Observation LastModified by Organization Detai ls LastModified Time None Recorded Concern Status LastModified by Organization Details LastModified Time None Recorded Payers Encounter Date Sequence Insurance Name Policy Number Policy Lyons Covered Member ID Lyons Member ID Guarantor Name 06/16/2025 1 [facility] - DOS ON OR AFTER 2022 - DUAL ELIGIBLE - [facility] OPTIONS AND ONE CARE (MEDICARE REPLACEMENT/ADV ANTAGE - HMO) Sharon Nugent [id number] Sharon Nugent Notes Date Note Type Note Provider Name and Address Organization Details Recorded Time 06/16/2025 text/html ROS as noted in the [facility] Nurse Triage Notes (Katherine Owens): Reason For Request: cellulitis on legs Patient Reports: History of cellulitis, isolated redness noted Denies: Mulligan Flash, circumferential mulligan Mulligan reported with black tissue to the area Open skin area after a fall with uncontrolled bleeding Abscess/infection with streaking noted, presence of fever or without Fever and chills noted in setting of wound Rash Bites -bugs, spider Abscess Chief Complaints: Extremity Swelling PMH: Congestive Heart Failure, COPD/Asthma, Coronary Artery Disease, Hypertension, Hyperlipidemia, Urinary Tract Infections (UTI), Hypothyroidism, Gout PMH Reviewed at 06/16/2025: Allergies Reviewed at 06/16/2025:51 Comments: 75 y.o female complains of Extremity Swelling RN from [facility] requesting visit BLE swelling redness/warmth to shins - noticed last night - LLE worse than RLE Minimal pain, no open areas/drainage RN reports palpable pedal pulses Denies fever Same symptoms a month ago - dx cellulitis - treated with antibiotics and resolved Last fall in March - reporting hitting knees [id number] Patient reports kidney issues in past - per RN not in medical history Requesting instED visit I provided information on the mobile health provider response time and advised the patient and/or caregiver to monitor reported signs and symptoms. I discussed the warning signs of when to seek emergency care. ..................... ..................... ..................... ..................... ..................... ..................... ............... Snag Grinder Note From Pedro Maurer: S: evaluation of 75y/o female for redness [...] pt states recent cellulitis of same leg tx d with out pt IV tx. Also noted slight yellowish/greenish outline around area ?? Hematoma vs bug bite. Pt elevates legs except to ambulate due to edema and lack of compression stockings P spoke with [facility] no tx at this time pt to monitor area if gets more red painful warm to touch or swollen call for re eval in meantime can try ice and elevation to see if improves red flags discussed ..................... ..................... ..................... ..................... ..................... ..................... ............... [facility] Consulted: Meghna Correia ..................... ..................... ..................... ..................... ..................... ..................... ............... Disposition: Mabel Correia MD [address] [facility], [place], [address], [facility] [employer] 06/16/2025 17:20:20 OBGyn Episode No OBEpisode recorded.
--- OUTSIDE RECORDS SUMMARY | 2025-09-12 05:47 | XMS_ITS | Data Portability ---
Author Organization [place] - [facility] Address [address] [place] [id number] Care Team Providers Care Camera Technician Name Role Phone SUSAN ROBISON Primary Care Provider MARLENE FONSECA OTHER LILIBETH SHETH Referring Provider Assessment Encounter Date Assessment Date Assessment LastModified by Organization Details LastModified Time 02/28/2020 02/28/2020 Overview/History : 70 yo female new to and this provider who presents with complain of lower back pain; patient reports that pain is chronic at exacerbates at times; she noted worsening pain X3d; paing is 5-7/10 and radiated into right lower extremity; improves with rest and worsens with activity; patient takes her regular medications including tramadol and diclofenac gel but states it provides little relief; patient denies any trauma, numbness, tingling, or weakness of the lower extremities; also denies any changes in bowel or bladder function. Comorbidoties: asthma, CAD, depression, HLD, HTN, hypothyroidism Exam: obese elderly female, well appearing, no acute distress, non-toxic appearance, alert and oriented X3; ambulates independently without notable difficulty Motor function is normal with muscle strength 5/5 bilaterally to upper and lower extremities. Sensation is intact bilaterally. Reflexes 2+ bilaterally. Cranial nerves 2-12 are intact. No focal neuro deficits, normal [id number], no pronator drift, no gait abnormalities are appreciated. Heart sounds are regular rate and rhythm; no audible murmurs, rubs, or gallops No signs of respiratory distress. Lungs are clear to auscultation in all fileds Good range of motion of all major joints. No external signs of trauma. Bilateral non-pitting edema of lower extremities noted; No erythema or cyanosis Neck and back are without deformity, external skin changes, or signs of trauma. Curvature of the cervical, thoracic, and lumbar spine are within normal limits. No tenderness noted on palpation of the spinous processes. Spinous processes are midline. Cervical, thoracic, and lumbar paraspinal muscles are not tender and are without spasm. Moderate discomfort is noted with flexion, extension, and [id number] rotation of the lumbar spine is noted. Straight leg raise test is negative bilaterally. DDx considered, but not limited to: Sciatica flare - most likely dx based on presenting symptoms and prior history Muscle strain - patient denies any injury Compound fructure - unlikely, patients symptoms are chronic with occasional UTI/pyonephritis - unlikely, no urinary symptoms. Spinal stenosis/herniate d disk - needs further eval AAA - unlikely Work up/Results: lumbar spine xray Plan/Discussion: - based on clinical presentation sciatica flare is the most likely dx at this time; - start meloxicam 7.5mg BID prn for pain - advised rest, gentle stretching and heat 20min on/off - follow up with PCP as needed within 3-5 days or sooner if symptoms worsen or do not improve - advised when to seek immediate medical attention/911/ED - patient expressed understanding and agreed to tx plan In order to obtain further information and compare any laboratory results/values, I have accessed patient records on the [employer]. This information was pertinent in my medical decision making today. Personal Protective Equipment (PPE), including gloves, eye protection and masks were donned and doffed appropriately and all equipment cleaned using approved technique with germicidal disposable wipes prior to and after care of this patient according to [facility]'s infection prevention protocols. Time On Scene with Patient: 00:22:05 [email or web address] Not available 02/29/2020 21:39:40 10/18/2020 10/18/2020 DDX: cauda equina, cord compression, AAA, sciatica. Pt has no red flags to suggest infection nor acute cord compression. Recent imaging noted in [facility] with normal diameter aorta. Pt treated for discomfort with lidocaine patch (patient has her own and applied by [facility]). Further patient was given toradol IM for some anti-inflammatory effect. Pt has FU with PCP as needed and is supposed to have lumbar injection done from provider in [place]. Pt advised to seek ED with any weakness, numbness, trouble with going to the bathroom, numbness to genital area, or feeling worse. Not available 10/18/2020 14:10:41 11/19/2020 11/19/2020 Overview/History : 70-year-old female with past medical history significant for asthma, CAD, depression, hyperlipidemia, hypertension, hypothyroidism, and chronic back and knee pain, [facility] but new to this provider, presents with complaints of acute on chronic back pain. She denies any fall or injury. She states for the past few days her back pain has getting progressively worse starts in the low back and radiates down the back of the right leg. She denies numbness, tingling, or weakness. Denies any urinary or fecal incontinence or retention. She does have some chronic shortness of breath and is currently undergoing workup with her marketing intelligence manager and is scheduled for pulmonary function testing. Exam: afebrile, RRR, mildly hypertensive, mildly tachypneic, O2 sat 96% on RA, non-toxic, well appearing. GENERAL: well developed, well nourished, appears stated age, sitting comfortably in no acute distress. HEENT: normocephalic, atraumatic, PERRLA, EOMI, sclera anicteric, nares patent, mmm. RESP: normal I:E, clear to auscultation bilaterally, no wheezes, rhonchi, or rales. CARDIO: RRR, normal S1, S2, no murmurs, rubs, or gallops. MUSK: spine with generalized tenderness to palpation, worse in lumbar spine, bilateral SI tenderness worse on the right, +straight leg raise on the right. NEURO: awake, alert, oriented x3, no focal neuro deficits, moving all extremities spontaneously, distal b/l LE with intact sensation to light touch b/l. DDx considered, but not limited to: CE - unlikely, sxs unilateral, no focal neuro deficits fracture - unlikely, no DAYANA HNP - possible but denies popping sensation SI - possible w/ b/l SI tenderness sciatica - likely +straight leg raise and focal tenderness in lumbar spine Work up/Results: no further w/u indicated at this time. Plan/Discussion: -Right sciatica -Patient currently taking ASA 81 -Take Prednisone 40 mg daily x5 days, first dose given on scene -Avoid heavy lifting and twisting -Avoid bed rest -F/u with PCP regarding chronic pain mgmt -F/u with pulm and w/ PFTs as scheduled for chronic SOB Thank you for your visit with [facility] today. We cannot always find the exact cause of your symptoms during your initial visit. Please follow up with your primary care provider or specialist to be rechecked or seek medical attention if your symptoms do not go away or get worse. If you develop any new or worsening symptoms and need after hours care, please go to nearest ER and/or call 911. If you have additional concerns or develop a change in your condition between 8am-10pm, please call [facility] at [phone] to help navigate your care. Proper Personal Protective Equipment (PPE), including gloves, eye protection, N95 mask, gown, and shoe covers were donned and doffed appropriately and all equipment cleaned using approved technique with germicidal disposable wipes prior to and after care of this patient according to [facility]'s infection prevention protocols. In order to obtain further information and compare any laboratory results/values, I have accessed old patient records. This information was pertinent in my medical decision making today. Time On Scene with Patient: 00:42:29 [email or web address] Not available 11/19/2020 13:18:07 01/02/2021 01/02/2021 Time On Scene with Patient: 00:38:04 - Referred - Point of Care: Emergency Department [email or web address] Not available 01/02/2021 14:43:44 10/05/2021 10/05/2021 Proper Personal Protective Equipment (PPE), including gloves, MASK were donned and doffed appropriately and all equipment cleaned using approved technique with germicidal disposable wipes prior to and after care of this patient according to [facility] infection prevention protocols. Brief History: 71 y.o F with pmh asthma, (CAD previous [place]) , HTN, HLD,osteoarthriti s ( walker dependent), established with and new to this provider, presents c/o rash, swelling and pain of left foot x 3 weeks. She was evaluated multiple times by her english faculty member for this and was prescribed an antifunal 2 weeks ago that she hasn't used until last night. She felt that it has helped. She also reports negative foot xrays, and a foot MRI is planned in 3 days. Pt denies fever. She is able to bear weight. Summary of Exam: On exam pt is well appearing NAD, sitting in recliner, morbidly obese, heart RRR, lungs CTAB, there is scaly rash to lateral aspect of left foot. mod ttp. no erythema, no fluctuance. 2+ pitting edema bilaterally. FROM of bilat feet. NVI. Work up/Results: None DDx considered & Medical Decision Making: Pt diagnosed with fungal rash on left foot; Rash is not cellulitic appearing, not suggestive of an abscess; Edema is chronic and not suggestive of decompensated HF or new onset liver or renal disease. No recent trauma or deformity to suggest fracture, she had negative XR's several weeks ago and is pending MRI in 3 days d/t pain. Pt encouraged to continue elevating legs, apply antifungal as written and continue taking diuretic medication. ED and return precautions advised. Pt verbalized understanding and agrees with plan. In order to obtain further information and compare any laboratory results/values, I have accessed old patient records. This information was pertinent in my medical decision making today. Time On Scene with Patient: 00:21:13 [email or web address] Not available 10/05/2021 15:13:24 Plan of Treatment Reminders Order Date Submit Date Provider Last Modified By Organization Details Last Modified Time Details Appointments None recorded. Lab None recorded. Referral None recorded. Procedures None recorded. Surgeries None recorded. Imaging None recorded. Medication Orders prednisone 10 mg tablet 2020 021 INTERFACE [id number] [address] [place], [address], 12:36:51 meloxicam 7.5 mg tablet 2019 020 livan [id number], [address] [place], [address], 12:25:23 Patient TargetsNo targets recorded. Patient Instructions Encounter Date Encounter Id Patient Instructions Last Modified By Organization Details Last Modified Time 02/28/2020 [id number] Back Pain - Discharge Instructions Basic Information: Back pain is a common problem, and has many different causes. Most back pain will improve within 2 weeks of onset. Common causes include lifting, twisting movements, overuse, unusual movements, stress, prolonged sitting, poor posture, being overweight and less commonly structural issues such as disc problems(sciatica) or fractures. X-rays and MRI s are rarely indicated unless there has been significant trauma, if you are having certain abnormal neurologic abnormalities, or if you have certain underlying medical conditions that can cause spinal problems. Instructions: Avoid heavy lifting, bending ,twisting or prolonged sitting. Be as active as you can comfortably be, walking often makes back pain feel better. Be sure to change position at least every 2 hours to avoid stiffening up. BED REST IS NOT RECOMMENDED FOR BACK PAIN AND WILL MAKE YOU FEEL WORSE! Ice for 15 minutes every 2 hours and after 48 hours you may alternate with moist heat for 15 minutes. DO NOT FALL ASLEEP ON THE HEATING PAD, this will cause the area to swell and hurt more! When getting out of bed, roll to your side, and dangle your legs over the edge of the bed while pushing up with your hand and elbow to a seated position. Place a pillow between your knees while lying on your side, and under your legs when lying on your back to remove stress from the spine. Practice good posture as much as you are able, shoulders back, head up, abdomen pulled in. Gentle stretching, lie on your back and gently hug your knees. When you are feeling better there are many exercises that can help you treat and prevent low back pain, check with your Provider. If you are having pain/numbness going down your legs the Porter exercises are designed to relieve this pain, you can find demonstrations on [email or web address] Weight loss will help to relieve stress on your back. Smoking can make back pain worse, try to limit or quit smoking, check with your provider about methods to help stop smoking. Medications: Based on your history and examination your provider will design a medication regimen specifically for your condition, this may include some of the following medications. Acetaminophen/Tyle nol: 650mg every 4 hours if you do not have any liver issues. Non-steroidal anti inflammatories/NSA IDS: These category includes ibuprofen (Motrin. Advil) and Naproxen (Aleve/Naprsoyn) and other medications. Anti-inflammatorie s are powerful pain relievers and the first line treatment for back pain. NSAID s should be taken with food. People with kidney disease, hypertension or on blood thinners should not take these medications. Other medications may be prescribed, if they contain muscle relaxants or narcotic pain relievers DO NOT DRINK ALCOHOL, DRIVE OR OPERATE HEAVY MACHINERY WHILE TAKING THESE MEDICATIONS! Follow Up: You will need to follow up with your PCP for reevaluation within a few days If your back pain persists for more than 2 months or your condition deteriorates you may require further evaluation and testing. If you experience worsening and persistent numbness/weakness/ tingling, have numbness of your genitals, inability to urinate or losing urine, severe pain, fever more than 101.5, or are worse go to the ER for further evaluation. If you have additional concerns or develop a change in your condition between 8am-10pm, please call [facility] at [phone] to help navigate your care. [email or web address] Not available 02/29/2020 21:39:55 10/18/2020 [id number] [facility] came to your home for evaluation of lower back pain. IT is on the right side and shoots down the right leg. You have had this before. You are taking baclofen and tylenol for this. We gave you an injection of toradol to help with the pain. While we were here we did some massage and applied a lidocaine patch to the area. You are having sciatica. You should follow up with your PCP with this pain. Call the pain provider for follow up If you have any concerns such as weakness, trouble walking, trouble urinating or you feel worse, go to the emergency department. Thank you for your visit with [facility] today. We cannot always find the exact cause of your symptoms during your initial visit. Please follow up with your primary care provider or specialist to be rechecked or seek medical attention if your symptoms do not go away or get worse. If you develop any new or worsening symptoms and need after hours care, please go to nearest ER and/or call 911. If you have additional concerns or develop a change in your condition between 8am-10pm, please call [facility] at [phone] to help navigate your care. Not available 10/18/2020 13:49:28 10/05/2021 [id number] It was great to see you today! Thank you for letting [facility] assist you in your medical needs today. Please present to your Primary Care Physician if your symptoms are not resolving over the next 2-3 days. If you are noticing a change in your symptoms between the hours of 8am and 9pm, and cannot follow up with your PCP please [facility]. Please present to the nearest EMERGENCY ROOM if you are experiencing any of the following: - worsening pain - fever above 101.0F despite using Tylenol (acetaminophen) - shortness of breath - chest pain or pressure - any symptom or concern that requires immediate evaluation [email or web address] Not available 10/05/2021 15:09:48 Reason for Referral None Reported. Procedures Surgical History Date Name Laterality Status Provider Name and Address Organization Details Recorded Time excision of basal cell carcinoma completed Armida Ahn NP [address] [place], [address], [place] - [facility] 01/02/2021 14:13:06 Imaging Results None recorded. Procedure Notes None recorded. Medical Equipment None Reported. Allergies Allergen ID Allergen Name Allergen Category Reaction Reaction Severity Criticality Documentation Date Start Date Code Code System Note Provider Name and Address Organization Details Recorded Time [id number] Claritin medicatio n Not available Not available Not available 02/28/2020 26592 6 [facility] DEB GEORGE [address] [place], [address], [place] - [facility] 0 15:20:36 [id number] lisinopri l medicatio n Not available Not available Not available 02/28/2020 [id number] RxNorm DEB GEORGE [address] [place], [address], [place] [facility] 0 15:20:48 [id number] Zoloft medicatio n Not available Not available Not available 02/28/2020 [id number] RxDEB Koenig [address] [place], [address], [place] [facility] 0 15:20:56 Medications Name Sig Start Date Stop Date Status Note LastModified by Organization Details LastModified Time amoxicillin 500 mg capsule TAKE 1 CAPSULE BY MOUTH 3 TIMES A DAY UNTIL FINISHED 11/19 completed Not Available Not Available Not Available oxcarbazepi ne 150 mg tablet 02/27 completed Not Available Not Available Not Available carvedilol 25 mg tablet active Not Available Not Available Not Available prednisone 10 mg tablet Take 4 tablets every day by oral route with meals for 5 days. active Not Available Not Available No t Available carvedilol 12.5 mg tablet TAKE 1 TABLET BY MOUTH TWICE A DAY active Not Available Not Available No t Available torsemide 20 mg tablet TAKE 1 TABLET BY MOUTH TWICE A DAY active Not Available Not Available No t Available ibuprofen 800 mg tablet TAKE 1 TABLET BY MOUTH 3 TIMES A DAY NEEDED active Not Available Not Available No t Available Lidocaine Viscous 2 % mucosal solution active Not Available Not Available Not Available fluconazole 150 mg tablet 11/19 completed Not Available Not Available Not Available meloxicam 15 mg tablet TAKE 1 TABLET BY MOUTH EVERY DAY 11/19 completed Not Available Not Available Not Available prednisone 20 mg tablet active Not Available Not Available Not Available propranolol ER 60 mg capsule,24 hr,extended release 02/27 completed Not Available Not Available Not Available metronidazo le 250 mg tablet TAKE 1 TABLET BY MOUTH THREE TIMES A DAY UNTIL FINISHED 11/19 completed Not Available Not Available Not Available metformin 850 mg tablet active Not Available Not Available Not Available clindamycin HCl 150 mg capsule TAKE 1 CAPSULE BY MOUTH FOUR TIMES A DAY 11/19 completed Not Available Not Available Not Available meclizine 12.5 mg tablet 02/27 completed Not Available Not Available Not Available hydroxyzine HCl 50 mg tablet TAKE 1 TABLET BY MOUTH EVERY DAY NEEDED FOR ANXIETY active Not Available Not Available No t Available oxcarbazepi ne 300 mg tablet 02/27 completed Not Available Not Available Not Available chlorthalid one 25 mg tablet active Not Available Not Available Not Available amlodipine 5 mg tablet TAKE 1 TABLET BY MOUTH EVERY DAY active Not Available Not Available No t Available allopurinol 100 mg tablet TAKE 1 TABLET BY MOUTH EVERY DAY active Not Available Not Available No t Available tramadol 50 mg tablet TAKE 1 TABLET BY MOUTH EVERY 8 HOURS active Not Available Not Available No t Available meloxicam 7.5 mg tablet TAKE 1 TABLET BY MOUTH TWICE A DAY NEEDED FOR 7 DAYS 11/19 completed Not Available Not Available Not Available methocarbam ol 750 mg tablet active Not Available Not Available Not Available cyanocobala min (vit B-12) 500 mcg tablet active Not Available Not Available N ot Available triamcinolo ne acetonide 0.025 % topical cream active Not Available Not Available Not Available fluvoxamine 25 mg tablet 01/02 completed Not Available Not Available Not Available baclofen 10 mg tablet TAKE 1 TABLET BY MOUTH 3 TIMES A DAY NEEDED FOR MUSCLE PAIN active Not Available Not Available No t Available amlodipine 10 mg tablet active Not Available Not Available Not Available torsemide 5 mg tablet TAKE 1 TABLET BY MOUTH TWICE A DAY active Not Available Not Available No t Available fluvoxamine 100 mg tablet TAKE 1 1/2 TABLETS BY MOUTH DAILY AT BEDTIME active Not Available Not Available No t Available doxycycline monohydrate 100 mg capsule 11/19 completed Not Available Not Available Not Available levothyroxi ne 125 mcg tablet TAKE 1 TABLET BY MOUTH EVERY DAY active Not Available Not Available No t Available clotrimazol e-betametha sone 1 %-0.05 % topical cream active Not Available Not Available Not Available docusate sodium 100 mg capsule TAKE 1 CAPSULE BY MOUTH 2 TIMES A DAY NEEDED FOR CONSTIPAT ION active Not Available Not Available No t Available gabapentin 300 mg capsule active Not Available Not Available Not Available aspirin 81 mg chewable tablet TAKE 1 TABLET BY MOUTH EVERY DAY active Not Available Not Available No t Available hydrocortis one 2.5 % topical cream active Not Available Not Available Not Available amoxicillin 250 mg capsule active Not Available Not Available Not Available Personal Best Full Range device FULL RANGE FOR ADULT active Not Available Not Available No t Available montelukast 10 mg tablet TAKE 1 TABLET BY MOUTH EVERY DAY IN THE EVENING active Not Available Not Available No t Available hydroxyzine HCl 25 mg tablet TAKE 1 TABLET BY MOUTH AT BEDTIME NEEDED FOR ITCHING MAY REPEAT 1 ADDITIONA L DOSE IF NEEDED active Not Available Not Available No t Available hydrochloro thiazide 25 mg tablet TAKE 1 TABLET BY MOUTH EVERY DAY active Not Available Not Available No t Available furosemide 20 mg tablet active Not Available Not Available Not Available fluvoxamine 50 mg tablet 01/02 completed Not Available Not Available Not Available gabapentin 100 mg capsule active Not Available Not Available Not Available estradiol 0.01% (0.1 mg/gram) vaginal cream 1 GM PER VAGINA NIGHTLY FOR 1 WEEK THEN 2 TIMES PER WEEK active Not Available Not Available [...] ketoconazol e 2 % topical cream APPLY TO AFFECTED AREA EVERY DAY active Not Available Not Available No t Available losartan 100 mg tablet TAKE 1 TABLET BY MOUTH EVERY DAY active Not Available Not Available No t Available fluticasone propionate 50 mcg/actuati on nasal spray,suspe nsion active Not Available Not Available Not Available metformin ER 500 mg tablet,exte nded release 24 hr active Not Available Not Available Not Available clotrimazol e 1 % topical cream active Not Available Not Available Not Available doxycycline hyclate 100 mg tablet TAKE 1 TABLET BY MOUTH TWICE A DAY FOR 7 DAYS 01/02 completed Not Available Not Available Not Available prazosin 2 mg capsule TAKE 1 CAPSULE BY MOUTH TWICE A DAY active Not Available Not Available No t Available naproxen 500 mg tablet 02/27 completed Not Available Not Available Not Available levothyroxi ne 112 mcg tablet 01/02 completed Not Available Not Available Not Available amoxicillin 500 mg-potassiu m clavulanate 125 mg tablet 02/27 completed Not Available Not Available Not Available oxycodone 5 mg tablet active Not Available Not Available No t Available ciclopirox 0.77 % topical cream active Not Available Not Available Not Available Vitamin D3 25 mcg (1,000 unit) tablet TAKE 1 TABLET BY MOUTH EVERY DAY active Not Available Not Available No t Available Arthritis Pain Relief (acetaminop hen) ER 650 mg tablet,exte nd release active Not Available Not Available N ot Available aripiprazol e 5 mg tablet active Not Available Not Available Not Available rosuvastati n 5 mg tablet TAKE 1 TABLET BY MOUTH EVERY DAY active Not Available Not Available No t Available bupropion HCl XL 300 mg 24 hr tablet, extended release TAKE 1 TABLET BY MOUTH EVERY DAY active Not Available Not Available No t Available nitrofurant oin monohydrate /macrocryst als 100 mg capsule active Not Available Not Available Not Available duloxetine 20 mg capsule,del ayed release 01/02 completed Not Available Not Available Not Available duloxetine 30 mg capsule,del ayed release active Not Available Not Available Not Available Advair HFA 230 mcg-21 mcg/actuati on aerosol inhaler INHALE 2 PUFFS TWICE A DAY active Not Available Not Available No t Available aripiprazol e 2 mg tablet TAKE 1 TABLET BY MOUTH EVERY DAY active Not Available Not Available No t Available oxycodone 10 mg tablet active Not Available Not Available Not Available diclofenac 1 % topical gel active Not Available Not Available Not Available melatonin 5 mg tablet 02/27 completed Not Available Not Available Not Available Gavilax 17 gram/dose oral powder active Not Available Not Available Not Available Incruse Ellipta 62.5 mcg/actuati on powder for inhalation INHALE 1 PUFF BY MOUTH EVERY 24 HOURS active Not Available Not Available No t Available Rexulti 1 mg tablet TAKE 1 TABLET BY MOUTH EVERY DAY active Not Available Not Available No t Available Spiriva Respimat 1.25 mcg/actuati on solution for inhalation active Not Available Not Available N ot Available Fluzone High-Dose 2019-20 (PF) 180 mcg/0.5 mL intramuscul ar syringe 01/02 completed Not Available Not Available Not Available Fluzone High-Dose Quad 2019- (PF) 240 mcg/0.7 mL IM syringe [facility]ARM[facility] active Not Available Not Available No t Available Trelegy Ellipta 200 mcg-62.5 mcg-25 mcg powder for inhalation active Not Available Not Available N ot Available Athlete's Foot 2 % topical spray active Not Available Not Available Not Available Vitals Date Recorded Body temperature Heart rate Respiratory rate Oxygen saturation Systolic And Diastolic Provider Name and Address Organization Details Last Updated DateTime 2 98.1 [degF] 88 /min 18 /min 95 % 148/58 mm[Hg] Not Available [facility] 2 14:30:22 Date Recorded Oxygen saturation Respiratory rate Heart rate Body temperature Systolic And Diastolic Provider Name and Address Organization Details Last Updated DateTime 1 94 % 20 /min 80 /min 98.1 [degF] 138/68 mm[Hg] Not Available [facility] 1 13:36:28 Date Recorded Body temperature Respiratory rate Heart rate Oxygen saturation Systolic And Diastolic Provider Name and Address Organization Details Last Updated DateTime 1 97.8 [degF] 22 /min 72 /min 96 % 132/70 mm[Hg] Not Available [facility] 1 12:26:43 Date Recorded Respiratory rate Body temperature Heart rate Oxygen saturation Systolic And Diastolic Systolic And Diastolic Provider Name and Address Organization Details Last Updated DateTime 1 20 /min 98.2 [degF] 84 /min 96 % 180/100 mm[Hg] 186/96 mm[Hg] Not Available [facility] 1 14:17:21 Date Recorded Heart rate Respiratory rate Body temperature Oxygen saturation Systolic And Diastolic Provider Name and Address Organization Details Last Updated DateTime 0 80 /min 16 /min 98.3 [degF] 95 % 148/74 mm[Hg] Not Available [facility] 0 15:23:56 Social History Question Answer Notes LastModified by Organizat ion Details LastModified Time Tobacco Smoking Status Former Smoker Armida Ahn, SUSSY [address] [place], [address], [place] [facility] 01/02/2021 14:11:21 Do You Have An Advance Directive? No Information not available 01/02/2021 What Is Your Code Status? DNR Information not available 01/02/2021 Within The Past 12 Months, Has It Happened That The Food You Bought Just Didn't Last And You Didn't Have Money To Get More. No Information not available 01/02/2021 Within The Past 12 Months, Have You Worried That Your Food Would Run Out Before You Got Money To Buy More. No Information not available 01/02/2021 Fall Risk: Do You Feel Unsteady When Standing Or Walking? No Information not available 01/02/2021 We Know That How And When People Interact With Friends And Family Can Be Very Different From Person To Person. How Often Do You Have The Opportunity To See Or Talk To People That You Care About And Feel Close To? (Ex: Talking To Friends On The Phone Or Visiting Friends Or Family Or Going To Zoroastrian Or Club Meetings) 1 Or 2 Times Per Week Information not available 01/02/2021 Excessive Alcohol Or Drug Use No Former Marijauna And Alcohol Use Information not available 01/02/2021 We Know From Many Of Our Patients That Covering All Of Their Costs Can Be Difficult At Times. This Can Cause Stress And Impact Health. In The Past Year, Have You Been Unable To Get Any Of The Following When It Was Really Needed? No Information not available 01/02/2021 What Is Your Housing Situation Today? I Have Housing Information not available 01/02/2021 Would You Like Help Connecting To Resources? None Information not available 01/02/2021 How Much Tobacco Do You Smoke? 1 PPD Information not available 01/02/2021 How Many Years Have You Smoked Tobacco? 40 Information not available 01/02/2021 Sex: Unknown Functional Status None recorded. Mental Status None recorded. Family History Relationship Description Onset Age of this Age Resolved Age Notes LastModified by Organization Details LastModified Time Mother Hypertensive disorder Not available 2020 14:11:13 Medical History Condition Response Coronary Artery Disease Y Depression Y COPD N Cancer Y Stroke N Kidney Disease N Asthma Y Pulmonary Embolism N High Cholesterol Y Diabetes N Hypertension Y Gynecological HistoryNo gynecological history recorded. Obstetrics History GPAL:G 0 P 0 0 0 0 Past Encounters Encounter ID Performer Location Encounter Start Date Encounter Closed Date Diagnosis/Indication Diagnosis SNOMED-CT Code Diagnosis ICD10 Code Diagnosis IMO Codes Diagnosis Note [id number] [facility] [address] [place] [address] 02/28/2020 15:18:48 03/01/2020 20:18:03 Right side sciatica 5848337154 29734 M54.31 [id number] ROGERS UNDERWOOD NP [facility] [address] [place] [address] 10/18/2020 13:31:08 10/19/2020 15:15:23 Right side sciatica 8947236008 37520 M54.31 [id number] DEB SANT[facility]O [facility] [address] [place] [address] 11/19/2020 12:22:03 11/20/2020 11:10:47 Right side sciatica [id number] 96693 M54.31 Chronic ob structive pulmonary disease 29848909 J44.9 [id number] Armida Ahn NP [facility] [address] [facility] [place] [address] 01/02/2021 14:05:49 01/07/2021 07:54:16 Hypertensive disorder 15523798 I10 Overview/H istory: Patient is an alert 70 year old morbidly obese female. Patient presents with complaint of right knee pain 9/10 pain and persistent since last evening. Patient presently under the care of her PCP and recently had adjustment s to her HTN medication s, she is not on a blood thinner, but does take a daily 81 mg ASA. Patient recently saw her pulmonolog ist and is in the process of determinin g diagnosis of COPD. Exam: Patient afebrile 98.2. Trachea midline, no JVD distention . HRR, distant, 84, no gallop, rub, murmur appreciate d. LSCTA bilaterall y, no work of breathing at rest. While ambulating to rest room, patient dyspneic 26-30 rate and pursed lip breathing. Abdomen obese, soft, + bowel sounds x 4 quadrants. No CVA tenderness , no suprapubic tenderness . Patient + Homans sign to right LE and patient expresses pain when palpating posterior right LE. No streaking, no heat to affected extremity. Feet equally warm to touch. Pedal pulses equally palpable. DDx considered , but not limited to: DVT cannot be ruled out, + Homans Right knee strain cannot be ruled out, however no mechanism of injury Acute HTN x 2 readings COPD cannot be ruled out, dyspnea on exertion Work up/Results : Exam Plan/Discu ssion: Patient visit escalated to ED visit relative to acute HTN despite recent increase and adjustment to HTN medication regime. Unable to rule out DVT, patient needs ultrasound STAT. [facility] responded/ EMS escorted patient to [facility] for evaluation . Med Rec completed Proper Personal Protective Equipment (PPE), including gloves, eye protection , N95 mask, gown, and shoe covers were donned and doffed yaima luque and all equipment cleaned using approved technique with germicidal disposable wipes prior to and after care of this patient according [facility]. In order to obtain further informatio n and compare any laboratory results/va lues, I have accessed old patient records. This informatio n was pertinent in my medical decision making today. Homans' sign [id number] R2 9.898 Pain in right knee 34793 54043 40093 M25.561 Dyspnea on exertion 6084 5006 R06.09 [id number] Marcellus woo, SUSSY [facility] [address] [facility] [place] [address] 10/05/2021 13:51:57 10/08/2021 23:00:11 Candidiasis of skin 67632225 B37.2 Edema of l ower extremity 523734277 R60.0 Health Concerns Section Related Observation LastModified by Organization Detai ls LastModified Time None Recorded Concern Status LastModified by Organization Details LastModified Time None Recorded Advance Directives Directive N: Payers Insurance Date Sequence Insurance Name Policy Number Policy Lyons Covered Member ID Lyons Member ID Guarantor Name 10/08/2021 1 [facility] - DOS PRIOR TO 2022 - DUAL ELIGIBLE (MEDICARE REPLACEMENT/ADV ANTAGE - HMO) Sharon Nugent [id number] Sharon Nugent 10/18/2020 1 [facility] OPTIONS - DUAL [place]IGIBLE - [place] ([place] - MED[place] REPLACEMENT) Sharon Nugent [id number] Sharon Nugent 11/19/2020 1 [facility] - DOS PRIOR TO 2022 - DUAL ELIGIBLE (MEDICARE REPLACEMENT/ADV ANTAGE - HMO) Sharon Nugent [id number] Sharon Nugent 10/18/2020 1 [place]: [employer] Sharon Nugent [id number] Sharon Nugent 10/18/2020 1 [facility] - DOS PRIOR TO 2022 - DUAL ELIGIBLE (MEDICARE REPLACEMENT/ADV ANTAGE - HMO) Sharon Nugent [id number] Sharon Nuegnt 02/28/2020 1 *SELF PAY* Sharon Nugent [id number] Sharon Nugent Notes Date Note Type Note Provider Name and Address Organization Details Recorded Time 02/28/2020 text/html Mrs. Nugent is a 70 yo female new to and this provider who presents with complain of lower back pain; patient reports that pain is chronic at exacerbates at times; she noted worsening pain X3d; paing is 5-7/10 and radiated into right lower extremity; improves with rest and worsens with activity; patient takes her regular medications including tramadol and diclofenac gel but states it provides little relief; patient denies any trauma, numbness, tingling, or weakness of the lower extremities; also denies any changes in bowel or bladder function. DEB GEORGE [address], [place], [address], [place] [facility] 02/29/2020 21:40:01 10/18/2020 text/html 70 year-old female with history of obesity, HTN, HLD, bilateral lower leg edema, hypothyroid, chronic back pain, osteoarthritis, who calls to the home for evaluation of lower back pain. Pain started about 3 days ago to right side of lower back, shooting down buttock and back of right leg into calf. She has had this before but felt it was worse this morning.She denies trauma, fevers, chills, weakness to lower extremities or change in bowel or bladder patterns. She has taken baclofen and tylenol but felt the pain was worse this morning. She feels the pain has improved since being awake. She is able to walk with her walker in her apartment from chair to bathroom. ROGERS UNDERWOOD NP [address], [place], [address], [place] [facility] 10/18/2020 14:10:56 11/19/2020 text/html 70-year-old female with past medical history significant for asthma, CAD, depression, hyperlipidemia, hypertension, hypothyroidism, and chronic back and knee pain, [facility] this provider, presents with complaints of acute on chronic back pain. She denies any fall or injury. She states for the past few days her back pain has getting progressively worse starts in the low back and radiates down the back of the right leg. She denies numbness, tingling, or weakness. Denies any urinary or fecal incontinence or retention. She does have some chronic shortness of breath and is currently undergoing workup with her marketing intelligence manager and is scheduled for pulmonary function testing. DEB SANTOYO [address], [place], [address], [place] [facility] 11/19/2020 13:18:52 01/02/2021 text/html Patient is an alert 70 year old female who is known to and new to this provider. Patient presents with right knee pain that hurts all around, pain is at a 9 and constant, it kept me from sleeping. No alleviating factors and no aggravating factors. Patient medical history significant for MA 2 years ago, asthma, depression, hyperlipidemia, HTN, hypothyroidism, anxiety, insomnia (uses nightly CPAP), sleep apnea. Armida Ahn NP [address], [place], [address], [place] [facility] 01/02/2021 15:09:38 10/05/2021 text/html 71 y.o F with pmh asthma, (CAD previous [place]) , HTN, HLD,osteoarthritis ( walker dependent), established with and new to this provider, presents c/o rash, swelling and pain of left foot x 3 weeks. She was evaluated multiple times by her english faculty member for this and was prescribed an antifunal 2 weeks ago that she hasn't used until last night. She felt that it has helped. She also reports negative foot xrays, and a foot MRI is planned in 3 days. Pt denies fever. She is able to bear weight. Danilo Mota NP [address], [place], [address], [place] [facility] 10/05/2021 15:13:40 OBGyn Episode No OBEpisode recorded.
--- OUTSIDE RECORDS SUMMARY | 2025-09-12 05:47 | XMS_ITS | Data Portability ---
Author Organization [place] [email or web address] Address [address] [place] [address] Care Team Providers Care Engineering Professor Name Role Phone TIMOTHY WAKEFIELD Primary Care Provider [phone] HIM CCA OTHER Assessment Encounter Date Assessment Date Assessment LastModified by Organization Details LastModified Time 08/01/2025 08/01/2025 I have reviewed and agree with the assessment and plan as documented by the bone char puller. I provided real time medical direction for this encounter and was immediately available to provide additional phone based assistance as needed. History as noted by bone char puller. Pt with history of Congestive Heart Failure, COPD/Asthma, Coronary Artery Disease, Hypertension, Hyperlipidemia, Urinary Tract Infections (UTI), Hypothyroidism, Gout, and PAD, scheduled for upcoming vascular surgery on her RLE. Pt reports about 10 days of a change in her voice with a hoarse and softer voice. 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 She denies any sore throat or pain with swallowing. No SOB. No neck pain or fevers. Pt is a non smoker. Pt was already seen by [facility] on 07/24 for 4 days of a hoarse voice and was told that it was likely a viral URI. On exam, pt's voice is mildly hoarse, no stridor or drooling. Vitals normal, lungs clear. Exam of throat and neck normal. Rapid Covid/flu/strep all negative. Impression: Pt with a voice gear changer the last 10 days, no other significant [...] voice changes. [email or web address] Not available 08/01/2025 16:08:38 08/06/2025 08/06/2025 I have reviewed and agree with the assessment and plan as documented by the bone char puller. I provided real-time medical direction for this encounter and was immediately available to provide additional phone-based assistance. 75F with scabs on ankle, itchy. No evidence for erythema or warmth. No surrounding discharge. Recommend barrier cream and hydrocortisone as needed. Red flags discussed. [email or web address] Not available 08/06/2025 13:31:29 Plan of Treatment Reminders Order Date Submit Date Provider Last Modified By Organization Details Last Modified Time Details Appointments None recorded. Lab culture, urine 2024 [place] [facility] (Centralized Electronic Ordering - All Locations), Patient Can Go To The Location Of Their Choice, [id number] 20:05:55 urinalysis, dipstick 2024 [facility], [address] [place] [address], [id number] 12:29:28 BMP, serum or plasma 2024 025 [facility], [address] [place] [address], [id number] 12:29:29 rapid flu (A+B) 2024 025 [facility], [address] [place] [address], [id number] 5 07:58:22 rapid SARS CoV 2 Ag, QL IA, respiratory specimen 2024 025 [facility], [address] [place] [address], [id number] 07:58:22 rapid strep group A, throat 2024 025 [facility], [address] [place] [address], [address] 5 07:58:23 rapid strep group A, throat 2024 025 [facility], [address] [place] [address], [address] 5 16:12:29 rapid SARS CoV 2 Ag, QL IA, respiratory specimen 2024 025 [facility], [address] [place] [address], [id number] 5 16:12:45 rapid flu (A+B) 2024 [facility], [address] [place] [address], [id number] 5 16:32:19 rapid SARS CoV 2 Ag, QL IA, respiratory specimen 2024 [facility], [address] [place] [address], [id number] 5 21:56:58 rapid flu (A+B) 2024 [facility], [address] [place] [address], [id number] 21:51:59 Referral None recorded. Procedures None recorded. Surgeries None recorded. Imaging None recorded. Medication Orders sulfamethox azole 800 mg-trimetho prim 160 mg tablet 2024 025 [facility]armacy #[id number], [address] [place], [address], 5 10:49:03 sulfamethox azole 800 mg-trimetho prim 160 mg tablet [email or web address]/Pharmacy #[id number], [address] [place], [address], 5 10:49:19 Patient TargetsNo targets recorded. Patient InstructionsNo instructions recorded. Reason for Referral None Reported. Results Created Date Observation Date Name Description Value Unit Range Abnormal Flag Note LastModifiedBy Organization Detail LastModifiedTime 09/09/20 25 09/09/2025 URINE CULTU RE, UROLO GY RADHA P urine culture, urology workup Prelim inary report Not Available [facility] ([facility]) [address] [facility], [place], [address], 09/10/2025 20:05:55 09/09/20 25 09/10/2025 URINE CULTU RE, UROLO GY RADHA P result 1 COMMEN T Micro biolo gical testi ng to rule out the prese nce of possi ble patho gens is in progr ess. Not Available [facility] ([facility]) [address] [facility], [place], [address], 09/10/2025 20:05:55 Result Notes None recorded. Problems Name Problem SNOMED Code Status Onset Date Resolution Date Notes Provider Name and Address Organization Details Recorded Time Lumbosacral radiculopat hy 1385895 Channing Myles MD [address] [place] [address],[address], [place], [address], [employer] 5 16:20:58 Osteoarthri tis of hip 135260553 Channing Myles MD [address] [place] [address],[address], [place], [address], [employer] 5 16:21:35 Osteoarthri tis of left knee joint 4632938568413 09 Channing Myles MD [address] [place] [address],[address], [place], [address], [employer] 16:21:44 Osteoarthri tis of right knee joint 3390324555802 00 Channing Myles MD [address] [place] [address],[address], [place], [address], [employer], [employer] 5 16:21:50 Scoliosis of lumbar spine 682126021 Channing Myles MD [address] [place] [address],[address], [place], [address], [employer] 5 16:21:58 Resting tremor 60650660 Active Magdiel Myles MD [address] [place] [address],[address], [place], [address], [place] [facility] [employer] 16:22:07 Hypothyroid ism 21819084 Active Magdiel Myles MD [address] [place] [address],[address], [place], [address], [place] [employer] 16:23:04 Asthma 825266100 Active 2020 Magdiel Myles MD [address] [place] [address],[address], [place], [address], [place] [employer] 16:20:12 Chronic kidney disease stage 2 014569399 Active 2020 Magdiel Myles MD [address] [place] [address],[address], [place], [address], [place] [employer] 16:20:16 Essential hypertensio n 07501663 Active 2020 Magdiel Myles MD [address] [place] [address],[address], [place], [address], [place] [employer] 16:20:19 Hyperlipide robin 61416555 Active 2020 Magdiel Myles MD [address] [place] [address],[address], [place], [address], [place] [employer] 16:20:22 Hyperthyroi dism 89355040 Active 2020 Magdiel Myles MD [address] [place] [address],[address], [place], [address], [place] [employer] 16:20:29 Edema 899304913 Active 2020 Magdiel Myles MD [address] [place] [address],[address], [place], [address], [place] [employer] 16:21:02 Mixed anxiety and depressive disorder 327962335 Active 2020 Magdiel Myles MD [address] [place] [address],[address], [place], [address], [place] [employer] 5 16:21:07 Obstructive sleep apnea syndrome 24024132 Active 2020 Magdiel Myles MD [address] [place] [address],[address], [place], [address], [employer] 5 16:21:16 Osteoarthri tis of knee 539413066 Active 2020 Magdiel Myles MD [address] [place] [address],[address], [place], [address], [employer] 5 16:21:39 Osteoarthri tis of right hip joint 5171556748216 07 Active 2020 Magdiel Myles MD [address] [place] [address],[address], [place], [address], [employer] 5 16:21:47 Problem Notes None recorded. Medical Equipment None Reported. Allergies Allergen ID Allergen Name Allergen Category Reaction Reaction Severity Criticality Documentation Date Start Date Code Code System Note Provider Name and Address Organization Details Recorded Time 85702 lisinopri l medicatio n Not available Not available Not available 10/10/2024 65269 RxNorm Not Available [facility] - [facility] 5 11:33:21 80448 Seroquel medicatio n Not available Not available Not available 10/10/2024 89666 RxNorm Not Available [facility] - [facility] 5 11:33:21 59011 Claritin medicatio n Not available Not available Not available 10/10/2024 74677 6 RxNorm Not Available [facility] - production 5 11:33:21 34385 codeine medicatio n Not available Not available Not available 04/21/2025 2670 RxNorm Not Available [facility] - production 5 15:38:18 45699 Zoloft medicatio n Not available Not available Not available 07/24/2025 12765 RxNorm Not Available [facility] - production 5 15:48:26 49355 loratadin e medicatio n Not available Not available Not available 07/24/2025 37211 RxNorm Not Available [facility] - External [employer] - prod 17:09:57 90343 quetiapin e medicatio n Not available Not available Not available 07/24/2025 49651 RxNorm Not Available [facility] External Data Service - prod 17:09:57 74346 sertralin e medicatio n Not available Not available Not available 07/24/2025 23169 RxNorm Not Available [facility] External Data Service - prod 17:09:57 90949 amoxicill in medicatio n Not available Not available Not available 09/09/2025 723 RxNorm Raisa Tejeda MD [address] [facility],[address], [place], [address] [place] [address] - [employer] 10:51:44 Medications Name Sig Start Date Stop [...] Not Available [facility] - production 5 17:09:10 Date Recorded Heart rate Oxygen saturation Respiratory rate Body height Body temperature Body weight Systolic And Diastolic Provider Name and Address Organization Details Last Updated DateTime 5 74 /min 96 % 18 /min 160.02 cm 98.4 [degF] 333979. 752 g 112/67 mm[Hg] Not Available [facility] 5 11:45:09 Date Recorded Body weight Respiratory rate Body temperature Heart rate Oxygen saturation Systolic And Diastolic Provider Name and Address Organization Details Last Updated DateTime 5 146586. 12 g 16 /min 98.2 [degF] 84 /min 94 % 147/81 mm[Hg] Not Available [facility] 5 21:03:49 Date Recorded Body temperature Respiratory rate Body height Oxygen saturation Heart rate Body weight Systolic blood pressure Provider Name and Address Organization Details Last Updated DateTime 5 98.6 [degF] 18 /min 160.02 cm 95 % 79 /min 641720. 12 g 128 mm[Hg] Not Available [facility] 5 13:27:50 Date Recorded Body temperature Oxygen saturation Heart [...] ICD10 Code Diagnosis IMO Codes Diagnosis Note 726 Rebeka Mosquera MD Main - [address] [address] 12/17/2021 17:53:07 05/29/2022 16:26:35 Dyspnea on exertion 81951930 R06.09 1293 Fortunato Pickett MD [facility] - [address] [address] 01/19/2022 13:22:09 05/29/2022 14:39:18 Pain of right thigh 9524275732 06655 M79.651 Patient evaluated for 3 days of right thigh pain. There is no evidence of fluctuance , systemic infection, or deformity. She is able to walk and actually feels better walking. Suspect musculoske letal injury (muscle strain). She will treat conservati vely with tylenol and follow-up with PCP if symptoms do not improve. 3397 Aram Logan MD [facility] - [address] [address] 05/07/2022 16:21:25 06/12/2022 17:03:03 Edema of lower extremity 797102998 R60.0 Reports longstandi ng history of RLE [...] but no signs of pulmonary edema per bone char puller. Advised close continued follow-up with outpatient specialist s. 4202 Consueol Bryson MD Main - [facility] [address] [place] [address] 06/15/2022 15:57:13 06/17/2022 13:52:04 Pain in lower limb 15872433 M79.606 chronic lymphedema , pain worse R>L over the past 3d. no worsening swelling, induration , rubor, or cyanosis. normal ROM. pain improving without interventi on since Thursday, but still there. followed by lymphedema team. not anticoagul ated, walks around at least every two hours. scheduled for u/s by primary team. awaiting compressio n wraps. catherine luque not much available for interventi on as she cannot recieve NSAIDs. reassured and educated on warning symptoms. 4914 Ned Viera MD Main - [facility] [address] [place] [address] 07/18/2022 14:35:58 07/22/2022 15:58:06 Edema of lower extremity 475436805 R60.0 Non-compli ant with meds. DIscussed with patient who agrees to take 20mg PO Torsemide BID. Discussed red flag symptoms for which to receive higher level of care. 5016 Francisco Romeo MD Main - [facility] [address] [place] [address] 07/22/2022 16:34:57 07/23/2022 12:03:47 Congestive heart failure 15638394 I50.9 5558 Prasad Moore MD Main - [facility] [address] [place] [address] 08/13/2022 14:14:55 08/15/2022 10:45:39 Low blood pressure 79077963 I95.9 This 72-year-ol d female with a [...] 5986 Trav Ca MD Main - [facility] [address] [place] [address] 08/28/2022 19:27:58 09/01/2022 11:07:10 [id number] Raisa Tejeda MD Main - [facility] [address] [place] [address] 02/08/2023 13:47:22 02/10/2023 14:37:06 Pain in buttock 405503958 M79.18 Evaluation in the field was performed by my bone char puller colleague, as noted above, I provided real-time [...] shortness of breath, cough, chest pain, fever. Distension of abdomen caused by intestinal gas 096606105 R14.0 Endorses gas w/o constipati on, no N/V. Procurement Engineer abd exam [place]ing[place]. [id number] Tatiana Hartley MD Main - [facility] [address] [place] [address] 05/26/2023 14:40:21 05/27/2023 11:07:30 Intertrigo 15451020 L30.4 73 year old female being evaluated [...] to be used BID x 2 weeks. [id number] Laura Casey MD Main - [facility] [address] [place] [address] 06/30/2023 19:37:25 06/30/2023 23:07:16 Pruritic rash 24494385 L28.2 02362 Tatiana Hartley MD Main - [facility] [address] [place] [address] 04/18/2024 15:54:06 04/18/2024 18:02:51 Discoloration of skin 7816524 R23.8 74 year old female being evaluated [...] assessment and plan as documented by the bone char puller. I provided real-time medical direction for this encounter and was immediatel y available to provide additional phone-base d assistance as needed. We discussed the diagnostic uncertaint y of home visits and associated risks. We discussed the need to seek care urgently/e mergently in the setting of any new or worsening symptoms. [id number] Trav Ca MD Main - [facility] [address] [place] [address] 10/10/2024 15:56:35 10/12/2024 18:39:30 Pruritic rash 51192455 L28.2 68606 Trav Ca MD [address] [address] 04/06/2025 14:51:42 04/06/2025 15:57:43 Fall W19.XXXS 2930837 Pain of knee region 1003 392519 M25.561 M25.562 90443152 I did not participat e in the care of this patient. I entered diagnoses and ICD 10 codes for billing purposes based on the assessment and plan- SEGMD: 6 2 Thoracic back pain 70420 8004 M54.6 [id number] Chanda Flor MD [address] [address] 04/22/2025 10:25:56 04/24/2025 09:17:28 Peripheral edema 081834740 R60.0 65358 Increased frequency of urination 731868769 R35.0 06857 53614 CODY ALMANZAR MD [address] [address] 04/28/2025 19:35:03 04/29/2025 08:53:30 Swelling of bilateral lower limbs 421192129 M79.89 68568264 Evaluation in the field was performed by my bone char puller colleague, as noted above, I provided real-time direction and supervisio n for this visit. The evaluation revealed 75-year-ol d female presents for evaluation of left lower extremity wound care and persistent erythema. The patient reports she was treated with a 12-day course of antibiotic s for cellulitis of the left leg. She states the lower leg erythema improved somewhat during treatment, but the redness and swelling at the knee have not improved. Per her visiting nurse, the knee appearance remains concerning . She reports extreme pain localized to the left leg and knee, with edema extending from the knee down to the ankle and foot. Pain is constant, worsened by Tylenol, and not relieved by elevation. She has been elevating the leg in bed since her recliner broke.She denies fever, chills, or systemic symptoms. She is taking Torsemide as prescribed (twice daily).Ons et of symptoms was approximat ene three weeks ago, following a fall. VS: BP: 176/93 , Pulse: 106 bpm , RR: 18 /min, SpO : 96% on room airTemp: 97.9 FExam:Gene ral: Alert, in moderate distress from leg pain.Left lower extremity: Diffuse erythema over the anterior chiu, extending proximally to and including the knee.Notab le swelling from knee to ankle with skin appearing tense and shiny.Ecch ymosis over the anterior and medial knee.Warmt h to touch over erythemato us areas.No open drainage noted; unable to assess fluctuatio n from image alone.Righ t lower extremity: Appears less swollen but with some baseline edema; no significan t erythema.A llergies reviewed Impression :Persisten t erythema, edema, and severe pain of the left lower extremity despite prior antibiotic therapy, with involvemen t of the knee and persistent swelling. Differenti al includes:I ncomplete resolution or progressio n of cellulitis Abscess or septic arthritis of the kneeDeep vein thrombosis Post-traum atic hematoma with secondary infectionG iven persistent symptoms, knee involvemen t, severe pain, and elevated BP likely from discomfort , there is concern for progressiv e infection and/or deeper involvemen t. Plan:Recom mend emergent ED to rule out DVT and septic arthritis. She also would benefit from IV diuresisPa tient agrees to ED transfer. An expect was called at [facility] ED Primary care, consider__ _ Dispositio n: We discussed the situation and I recommende d referral to the emergency department . [id number] Trav Ca MD [facility] [address] [address] 05/31/2025 13:51:10 06/01/2025 11:11:34 Pain in right arm 577371301 M79.601 184769 [id number] Magdiel Myles MD [facility] [address] [address] 06/02/2025 16:17:52 06/03/2025 00:23:07 Injury of upper arm 392368126 S46.911D 0129008 [id number] Meghna Correia MD [address] [address] 06/16/2025 17:08:01 06/16/2025 19:40:14 Bilateral lower leg edema 385462613 R60.0 8144154309 [id number] Brigido Antony MD [address] [address] 06/28/2025 10:00:03 06/28/2025 15:06:24 Dermal mycosis 46545290 B36.9 90205 Eruption 411847085 R21 27188 55493 Tatiana Hartley MD [address] [address] 07/24/2025 17:09:06 07/25/2025 15:42:41 Viral upper respiratory tract infection 391432953 J06.9 8433882 75 year old female being evaluated for [...] assessment and plan as documented by the bone char puller. I provided real-time medical direction for this encounter and was immediatel y available to provide additional phone-base d assistance as needed. We discussed the diagnostic uncertaint y of home visits and associated risks. We discussed the need to seek care urgently/e mergently in the setting of any new or worsening symptoms. [id number] Sean Fish MD [address] [address] 08/01/2025 11:45:05 08/01/2025 16:11:59 Hoarse 02160090 R49.0 50108205 79723 CODY ALMANZAR MD [address] [address] 08/04/2025 20:55:51 08/07/2025 16:33:20 Acute exacerbation of chronic obstructive pulmonary disease 996906281 J44.1 989916 Evaluation in the field was performed by my bone char puller colleague, as noted above, I provided real-time [...] lower-extr emity edema remains at baseline. 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 She [...] rapid weight gain, or decreased urine output [id number] Laura Casey MD [facility] [address] [address] 08/06/2025 13:27:39 08/07/2025 17:43:24 Eruption 926176675 R21 77415 12039 Raisa Tejeda MD [facility] [address] [address] 09/09/2025 10:20:28 09/11/2025 15:19:41 Urinary symptoms 767822961 R39.9 [id number] Evaluation in the field was performed by my bone char puller colleague, as noted above, I provided real-time [...] [place] Member ID Guarantor Name 03/03/2024 1 [facility] - DOS PRIOR TO 2022 - DUAL ELIGIBLE (MEDICARE REPLACEMENT/ADV ANTAGE - HMO) Sharon Nugent [id number] Sharon Nugent 09/09/2025 1 [facility] - DOS ON OR AFTER 2022 - DUAL ELIGIBLE - GROUP HOME OPTIONS AND ONE CARE (MEDICARE REPLACEMENT/ADV ANTAGE - HMO) Sharon Nugent [id number] Sharon Nugent Notes Date Note Type Note [...] Infections (UTI), Hypothyroidism, Gout PMH Reviewed at 07/24/2025: Allergies Reviewed at 07/24/2025 - :48 Comments: 75 y.o female complains of Ear [...] signs of when to seek emergency care. Procurement Engineer Organization Information for ParminderMaurice Jenelle MAURICIO Business Legal Name: [employer]. Address: [address] [place] [address], Paint Prep Technician: Americo CAMACHO No.: [id number] Procurement Engineer POC Test Results from Maurice Zurita Rapid influenza antigen (17:04:57) Flu: - Rapid COVID antigen (17:04:58) COVID: - ..................... ..................... ..................... ..................... ..................... ..................... ............... Procurement Engineer Note From Maurice Zurita: Dispatched to the [...] conducted and results uploaded to Pts portal. [facility] consulted. Pt provided reassurance. Red flags discussed. ALL times are approx. [facility] Lab Orders: rapid SARS CoV 2 Ag, QL IA, respiratory specimen: Performed rapid flu (A+B): Performed ..................... ..................... ..................... ..................... ..................... ..................... ............... [facility] Consulted: Tatiana Hartley ..................... ..................... ..................... ..................... ..................... ..................... ............... Disposition: Fulfilled Tatiana Hartley MD [address] [facility],[address], [place], [address], [employer] 07/24/2025 21:08:47 08/01/2025 text/html ROS as noted in the HPI This was a supervised home visit with bone char puller Kevin Yan. [facility] Nurse Triage Notes (Shruthi Alvarez): Reason For [...] Reviewed at 08/01/2025 - :32Allergies Reviewed at 08/01/2025:32Comments: 75 y.o female complains of mild Cough [...] signs of when to seek emergency care. Procurement Engineer Organization Information for Kevin Yan Legal Name: [facility] TransportationAddress : [address] [place] [address], [place] [address], Medical Director: Alberto Babcock [facility] No.: [id number] Procurement Engineer POC Test Results from Kevin Yan Rapid influenza antigen (11:41:04)Flu: - Rapid strep test (11:41:06)Strep: - Rapid COVID antigen (11:41:09)COVID: - ..................... ..................... ..................... ..................... ..................... ..................... ............... Procurement Engineer Note From Kevin Yan: 75-year-old female main [...] change in voice as well as her gas appliance adjuster. Patient thought she might v e had [...] concerns. Patient thanked us for the visit. [facility] Lab Orders: rapid strep group A, throat: Performed rapid SARS CoV 2 Ag, QL IA, respiratory specimen: Performed rapid flu (A+B): Performed ..................... ..................... ..................... ..................... ..................... ..................... ............... [facility] Consulted: Sean Fish ..................... ..................... ..................... ..................... ..................... ..................... ............... Disposition: Fulfilled ..................... ..................... ..................... ..................... ..................... ..................... ............... Procurement Engineer Note From Kevin Yan:This has been updated by the bone char puller, Kevin Yan, at (08/01/2025 12:23:02) 75-year-old female [...] change in voice as well as her gas appliance adjuster. Patient thought she might v e had [...] for the visit. Sean Fish MD [address] [facility],[address], [place], [id number], [employer] 08/01/2025 16:08:58 08/04/2025 text/html ROS as noted in the [...] Infections (UTI), Hypothyroidism, Gout PMH Reviewed at 08/04/2025: Allergies Reviewed at 08/04/2025:33 Comments: 75 y.o [...] signs of when to seek emergency care. Procurement Engineer Organization Information for Eddie Rossi Business Legal Name: [facility] Address: [address] [place] [id number], Paint Prep Technician: Alberto Babcock MD CLIA No.: [id number] Procurement Engineer POC Test Results from Eddie Rossi MAURICIO Rapid COVID antigen (22:17:53) COVID: - Rapid influenza antigen (22:17:54) Flu: - Rapid strep test (22:17:54) Strep: - ..................... ..................... ..................... ..................... ..................... ..................... ............... Procurement Engineer Note From Eddie Rossi: [facility] visit for female patient with complaint of sore throat and shortness of breath. Patient presents at home sitting in recliner. Patient reports hoarseness and cough, presenting in the last few days with some worsening shortness of breath over the last several weeks. patient reports that her TRANSPORT TECHNICIAN recently told her she was sick with [...] to be negative for all. Consulted with [facility], Dr. Almanzar, who advised continuing supportive care and monitoring symptoms. Reviewed red flags for ED. Patient education provided. [facility] Lab Orders: rapid flu (A+B): Performed rapid SARS CoV 2 Ag, QL IA, respiratory specimen: Performed rapid strep group A, throat: Performed ..................... ..................... ..................... ..................... ..................... ..................... ............... [facility] Consulted: Cody Almanzar ..................... ..................... ..................... ..................... ..................... ..................... ............... Disposition: Fulfilled CODY ALMANZAR MD [address] [facility],[address], [place], [id number], [facility] [facility] 08/04/2025 22:20:07 08/06/2025 text/html CRC Nurse Triage Notes (Katherine Owens): Reason For Request: Pt reporting a sore on her left leg, which she has had for a few days(longer)>was recently seen by rustBROOKE on 08/04 Patient Reports: History of cellulitis, isolated redness noted Denies: Mulligan Flash, circumferential mulligan Mulligan reported with black tissue to the area Open skin area after a fall with uncontrolled bleeding Abscess/infection with streaking noted, presence of fever or without Fever and chills noted in setting of wound Rash Bites -bugs, spider Abscess Chief Complaints: Wound Care PMH: Congestive Heart Failure, COPD/Asthma, Coronary Artery Disease, Hypertension, Hyperlipidemia, Urinary Tract Infections (UTI), Hypothyroidism, Gout PMH Reviewed at 08/06/2025 - :08 Allergies Reviewed at 08/06/2025 - 11:08 Comments: 75 y.o female complains of Wound Care Self-referring. 2 ulcers on L chiu - noticed 3 days ago. Bigger than a pencil tip but smaller than a quarter. Endorses redness around the wound and slightly warm to touch. Antibiotic cream applied by patient this morning. Denies injury to area or recent falls. Originally itchy - scratched then opened and got worse. No open areas currently or drainage. Has not had similar wounds before. Minimal pain - took tylenol. Aspirin 81mg daily. Denies fever/chills. Foot on that side warm and normal in appearance. Baseline BLE swelling, hx of CHF. Hx of CKD. I provided information on the mobile health provider response time and advised the patient and/or caregiver to monitor reported signs and symptoms. I discussed the warning signs of when to seek emergency care. ..................... ..................... ..................... ..................... ..................... ..................... ............... Procurement Engineer Note From Kathleen Rubio: [facility] responds to the listed address for a 75 yof w/ a c/c of skin abrasions. Upon arrival on scene, pt yells through the door to her apartment for [facility] to enter. She is seated just inside the door in a power recliner watching TV. She is generally well-appearing and NAD is observed. She is making eye contact and speaking pleasantly w/ [facility]. She tells [facility] she was seen and tested for COVID/flu and strep due to her hoarse voice she has had for a couple months. Everything came back negative and she has been doing home remedies to try and help w/ the hoarseness. Today she says she called because Thursday she also had an itchy spot on her L lower leg and when she scratched it, it left two small abrasions that were bleeding. She feels today they have gotten worse and wants them evaluated. She endorses mild itchiness, but no pain, bleeding, or drainage. She has been suing triple antibiotic cream and nystatin cream on the area w/ relief. Pt has lymphedema and is edematous bilateral LEs at baseline. She reports her current amount of edema as baseline. [facility] obtains vital signs and pt is assessed. BP is [id number] over palp and pt is normotensive, afebrile, and not hypoxic. [facility] chooses to assess lung sounds based on her compliant of hoarseness and lung sounds are clear to auscultation. No stridor or sonorous respirations are noted in the throat. LLE has two small scabs that appear to be scratch torres about 3 from the ankle on the anterior lateral aspect. Surrounding skin has some red excoriated areas, but no heat, purulent drainage, bleeding, or streaking is noted. Photos are obtained for [facility] inspection. [facility] contacts [facility] and discusses the above. [facility] feels area is not infected and pt should continue w/ the triple antibiotic and hydrocortisone cream and keep the area clean. [facility] advises pt of C instructions as well as the warning signs of when to seek emergency care. Pt gives her verbal understanding. Pt is left in stable condition. [facility] is clear. Report completed by DURGA Rubio [id number]. ..................... ..................... ..................... ..................... ..................... ..................... ............... [facility] Consulted: Laura Casey ..................... ..................... ..................... ..................... ..................... ..................... ............... Disposition: Mabel Casey MD [address] [facility],[address], [place], [address], [employer] 08/06/2025 13:32:00 09/09/2025 text/html CRC Nurse Triage Notes (Katie [...] for tomorrow. [facility] and advised the patient and/or caregiver to monitor reported signs and symptoms. I discussed the warning signs of when to seek emergency care. Procurement Engineer Organization Information for Danilo Larsen Business Legal Name: [employer]. Address: [address] [place] [address], Paint Prep Technician: Americo Burgos MD CLIA No.: [id number] Procurement Engineer POC Test Results from Danilo Larsen Urine Dipstick (10:21:19) Urine leukocytes: 125+ZAC Urine nitrites: +NIT Urine urobilinogen: 0.2URO Urine protein: -PRO Urine pH: 7.0pH Urine blood: +BLO Urine specific gravity: 1.010SG Urine ketones: -KET Urine bilirubin: -BRIAN Urine glucose: 1000+++GLU iSTAT Chem8+ (10:40:03) Na: 143mEq/L K: 3.3mEq/L Cl: 102mEq/L iCa: 1.29mmol/L TCO2: 28mmol/L Glu: 112mg/dL BUN: 23mg/dL Crea: 1.1mg/dL Hct: 43% Hb: 14.6g/dL Ammol/L Cartridge Number: [id number] ..................... ..................... ..................... ..................... ..................... ..................... ............... Procurement Engineer Note From Danilo Larsen: [place] the home of a 75-year-old female patient with urinary issues. Patient has had some urinary burning, melodious odor and eight out of 10. Urinary pain for the last three days. Patient was hospitalized two weeks ago for a severe urinary tract infection. Patient is alert and oriented times four, strong equal blue print control clerk strength, symmetrical facial features, patient did have [...] this. Results were sent in to the [facility]. [facility] [place] in ordered bloodwork, this was done without incident and blood was run on an istat. Those results were forwarded into the [facility]. Doctor then ordered one tablet of Bactrim be given, and a prescription sent to the patient s pharmacy. Patient was warned of signs and symptoms, and went to call 911 that should things get worse. [facility] Lab Orders: culture, urine: Performed urinalysis, dipstick: Performed BMP, serum or plasma: Performed [facility] Medication Orders: sulfamethoxazole 800 mg-trimethoprim 160 mg tablet: Administered ..................... ..................... ..................... ..................... ..................... ..................... ............... [facility] Consulted: Raisa Tejeda ..................... ..................... ..................... ..................... ..................... ..................... ............... Disposition: Fulfilled Raisa Tejeda MD [address] [facility],[address], [place], [address], [employer] 09/09/2025 12:15:25 OBGyn Episode No OBEpisode recorded.
--- OUTSIDE RECORDS SUMMARY | 2025-09-12 05:47 | XMS_ITS | Encounter Summary ---
Author Organization [facility] Address [address] [place] [address] Encounters * CPT with Medical [facility] at [facility] on 2025-06-28 { reasonForRequest : Pt reporting a rash on the left leg, that appears to show like past cellulitis she has had>has spread from the bottom of the leg right up to the knee- , patientReports : Rash , denies :[ Mulligan Flash, circumferential mulligan , Mulligan reported with black tissue to the area , Open skin area after a fall with uncontrolled bleeding&q uot;, Abscess/infection with streaking noted, presence of fever or without , Historyof cellulitis, isolated redness noted , Fever and chills noted in setting of wound ,"Bites -bugs, spider , Abscess ], chiefComplaints : Wound Care", pmh : Congestive Heart Failure, COPD/Asthma, Coronary Artery Disease, Hypertension, Hyperlipidemia, Urinary Tract Infections (UTI), Hypothyroidism, Gout , allergies : Lisinopril, Seroquel, Claritin, Codeine , otherAllergies :null, painAssess ment : , visitOutcome : , additionalComments : 75 y.o female complains of Wound Care\n\nSelf-reporting symptoms. Rash starting at bottom part of leg - rash-like appearance. Spreads to under the knee - rash like in appearance as well but not red. Under the knee is itchy but lower part is not. Slightly warm to touch. Has had the rash for the past couple of weeks but not going away and getting slightly worse as time goes by. No open areas or drainage. Denies fever. Has used yeast cream today on leg. Was using a prescription cream a couple of weeks ago prescribed by [employer] allergic to it so hasn't been using that since. Reports LLE swelling, denies pitting edema. Foot is warm - no signs of cyanosis. No recent medication changes. Denies gardening or insect bites. ASA 81mg daily. Denies kidney concerns. \n\nI provided information on the mobile health provider response time and advised the patient and/or caregiver to monitor reported signs and symptoms. I discussed the warning signs of when to seek emergency care. 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 Patient reports for approximately one week she has been experiencing a rash that is spreading from the front of her left ankle traveling up the anterior left chiu, stopping just below the knee. Patient additionally reports experiencing a rash in the popliteal bend of her left lower extremity as well. Patient denies chest pain, shortness of breath, fevers, and acute changes in vision. Pictures of lower extremities uploaded via [employer]. Skin warm, dry and of appropriate color for ethnicity. Head and neck, free of trauma and edema. -JVD. Breath sounds present, clear and equal bilaterally. Abdomen is soft, non-tender and non-distended. Upper extremities, free of trauma and edema. Lower left extremity exhibits rash pattern starting from the bottom of the ankle, traveling to the bottom of the knee; area is not hot to the touch and is not weeping. Lower right extremity free of trauma and edema; peripheral pulses present throughout. [facility] contacted: states patients lower left extremity does not appear to be suffering from cellulitis, but will require treatment to clear up. [facility] states they will send a prescription for treatment to a pharmacy of patient???s choice. Patient was encouraged to avoid scratching the affected area. Patient was advised to monitor herself for increased surface area of the rash, fevers, shortness of breath, or chest pain and was encouraged to seek further medical attention, including 911 if said symptoms were to develop. Patient verbalizes understanding of the plan and states she is comfortable remaining home today. ORAL_MEDICATION, WOUND_CARE Written by Zumbl on 2025-06-28
--- OUTSIDE RECORDS SUMMARY | 2025-09-12 05:47 | XMS_ITS | Data Portability ---
Author Organization 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 On exam she has positive facet loading with tenderness in L4-5 and L3-4 facet region in the right lumbar region. X-ray Lumbar spine shows arthritic changes in the facet at L 3-4 and L 4-5 levels. She is here for a Lumbar facet joint steroid injections at Right L 3-4 and L 4-5 levels under fluoroscopic guidance . The risks and benefits of the procedure were discussed in detail. She wishes to proceed. She needs to follow up in four weeks . [email or web address] Not available 02/12/2021 14:42:18 03/14/2021 03/14/2021 Sharon Nugent is a 71 year old woman with low back pain radiating occasionally into the right lower extremity. On exam ,she has tenderness in the Right sacroiliac joint with a positive Frantz's test. Trial of Right sacroiliac joint injection under fluoroscopic guidance was recommended. The risks and benefits of the procedure were discussed in detail. She wishes to proceed. We will obtain prior authorization and an appointment will be booked for the same . She needs a drivers' cash clerk on the day of the procedure. [email or web address] Not available 03/26/2021 08:55:46 05/22/2021 05/22/2021 Sharon Nugent is a 71 year old woman with low back pain radiating occasionally into the right lower extremity. On exam ,she has tenderness in the Right sacroiliac joint with a positive Frantz's test. She is here for a trial of Right sacroiliac joint injection under fluoroscopic guidance . The risks and benefits of the procedure were discussed in detail. She wishes to proceed. She will follow up in one month. [email or web address] Not available 05/22/2021 15:58:16 06/24/2021 06/24/2021 Sharon Nugent is a 71 year old woman with right sided low back pain which is worse for the past nine months. She reports 50% pain benefit with Right sacroiliac joint injections for one month with return of pain. She has trialed physical therapy and is doing a home exercise program with persistent pain. X-ray Lumbar spine shows arthritic changes in the facet at L4-5 and L5-S1 levels.MRI Lumbar spine shows L 4-5: Mild broad-based disc bulge and mild bilateral facet hypertrophy and ligamentum flavum infolding, without significant central stenosis, with minimal left greater than right neural foraminal narrowing. L5-S1: Broad-based disc bulge and moderate bilateral facet hypertrophy, without significant central stenosis or neural foraminal narrowing. Trial of lumbar epidural steroid injection under fluoroscopic guidance was recommended. The risks and benefits of the procedure were discussed in detail. She wishes to proceed. We will obtain prior authorization and an appointment will be booked for the same . She needs a drivers' cash clerk on the day of the procedure. [email or web address] Not available 06/24/2021 14:46:57 08/28/2021 08/28/2021 Sharon Nugent is a 71 year old woman with right sided low back pain which is worse for the past nine months. She reports 50% pain benefit with Right sacroiliac joint injections for one month with return of pain. She has trialed physical therapy and is doing a home exercise program with persistent pain. X-ray Lumbar spine shows arthritic changes in the facet at L4-5 and L5-S1 levels.MRI Lumbar spine shows L 4-5: Mild broad-based disc bulge and mild bilateral facet hypertrophy and ligamentum flavum infolding, without significant central stenosis, with minimal left greater than right neural foraminal narrowing. L5-S1: Broad-based disc bulge and moderate bilateral facet hypertrophy, without significant central stenosis or neural foraminal narrowing. She is here for a trial of lumbar epidural steroid injection under fluoroscopic guidance . The risks and benefits of the procedure were discussed in detail. She wishes to proceed. She will follow up in four weeks . [email or web address] Not available 08/28/2021 15:36:34 Plan of Treatment Reminders Order Date Submit Date Provider Last Modified By Organization Details Last Modified Time Details Appointments None record ed. Lab None record ed. Referral None record ed. Procedures None record ed. Surgeries None record ed. Imaging None record ed. Medication Orders None record ed. Patient TargetsNo targets recorded. Patient Instructions Encounter Date Encounter Id Patient Instructions Last Modified By Organization Details Last Modified Time 02/12/2021 [id number] She was advised against bed rest lasting longer than four days and to continue activities as tolerated. [email or web address] Not available 02/12/2021 14:38:08 03/14/2021 [id number] She was advised against bed rest lasting longer than four days and to continue activities as tolerated. Telehealth visit: The patient was located at home for this telephone electronic visit and gave consent for this visit to be conducted via telehealth. 15 minutes was spent on this call and greater than 50% of the visit was spent on counseling and coordination of care. [email or web address] Not available 03/26/2021 08:56:01 05/22/2021 [id number] She was advised against bed rest lasting longer than four days and to continue activities as tolerated. Telehealth visit: The patient was located at home for this telephone electronic visit and gave consent for this visit to be conducted via telehealth. 15 minutes was spent on this call and greater than 50% of the visit was spent on counseling and coordination of care. [email or web address] Not available 05/22/2021 15:57:45 06/24/2021 [id number] She was advised against bed rest lasting longer than four days and to continue activities as tolerated. Telehealth visit: The patient was located at home for this telephone electronic visit and gave consent for this visit to be conducted via telehealth. 15 minutes was spent on this call and greater than 50% of the visit was spent on counseling and coordination of care. [email or web address] Not available 06/24/2021 14:41:46 Reason for Referral None Reported. Results Created Date Observation Date Name Description Value Unit Range Abnormal Flag Note LastModifiedBy Organization Detail LastModifiedTime 07/11/2007/09/2021 MRI, lumba r spine , w/o contr ast No observ ation record ed. [email or web address] [facility] [place] [address] [facility] [address], [place], [address], 07/18/2021 15:51:20 Result Notes None recorded. Problems Name Problem SNOMED Code Status Onset Date Resolution Date Notes Provider Name and Address Organization Details Recorded Time Lumbosacral spondylosis without myelopathy 65050674 Active Balaji ramirez MD [address] , [address], [place], [address], [place] [facility] 13:14:31 Scoliosis of lumbar spine 567505614 Active Balaji ramirez MD [address] , [address], [place], [address], [place] [facility] 9 13:14:43 Osteoarthri tis of left knee joint 8436342804164 09 Active Balaji ramirez MD [address] , [address], [place], [address], [place] [facility] 9 13:14:58 Osteoarthri tis of hip 268130869 Active Balaji ramirez MD [address] , [address], [place], [place], [place] [facility] 13:15:14 Osteoarthri tis of right knee joint 4029637958170 00 Active Balaji ramirez MD [address] , [address], [place], [address], [place] [facility] 13:15:32 Lumbosacral radiculopat hy 3428939 Active Balaji ramirez MD [address] , [address], [place], [address], [place] [facility] 9 08:26:27 Problem Notes None recorded. Procedures Surgical History Date Name Laterality Status Provider Name and Address Organization Details Recorded Time 08/28/20 21 Lumbar Epidural steroid injection under fluoroscopic guidance completed Balaji Rubin MD [address] [facility] , [address], [place], [address], [place] [facility] 08/28/2021 15:34:42 05/22/20 21 Sacroiliac Joint Steroid Injections, using Fluoroscopy completed Balaji Rubin MD [address] [facility] , [address], [place], [address], [place] [facility] 05/22/2021 15:57:03 02/13/20 21 Fluoroscopic Guided Lumbar Facet Steroid Injections of levels completed Balaji Rubin MD [address] [facility] , [address], [place], [address], [place] [facility] 02/12/2021 14:41:01 03/06/20 20 Fluoroscopic Guided Lumbar Facet Steroid Injections of levels completed Balaji Rubin MD [address] [facility] , [address], [place], [address], [place] [facility] 03/07/2020 14:29:59 10/25/19 20 Radiofrequency of Lumbar/Sacral medial branches supplying the facets under fluoroscopic guidance completed Balaji Rubin MD [address] [facility] , [address], [place], [address], [place] [facility] 10/25/2019 16:39:33 05/31/20 19 Fluoroscopic Guided Lumbar Facet Steroid Injections of levels completed Balaji Rubin MD [address] [facility] , [address], [place], [address], [place] [facility] 06/01/2019 16:30:57 03/08/20 19 Fluoroscopic Guided Lumbar Facet Steroid Injections of levels completed Balaji Rubin MD [address] [facility] , [address], [place], [address], [place] [facility] 03/11/2019 10:43:46 Other completed Patience Macdonald [place] [facility] 01/17/2019 11:15:11 Other completed Patience Macdonald [place] [facility] 01/17/2019 11:15:51 Imaging Results None recorded. Procedure Notes None recorded. Medical Equipment None Reported. Allergies Allergen ID Allergen Name Allergen Category Reaction Reaction Severity Criticality Documentation Date Start Date Code Code System Note Provider Name and Address Organization Details Recorded Time 68458 Claritin medicatio n Not available Not available Not available 01/17/2019 53624 6 RxNorm Extre am sleep yness Patience fagan, [place] [facility] 9 11:07:14 76857 lisinopri l medicatio n fever Not available Not available 01/17/2019 95404 RxNorm Drows ey Patience fagan, [place] [facility] 9 11:07:45 39405 Zoloft medicatio n Not available Not available Not available 01/17/2019 51867 RxNorm Drows yness Patience fagan, [place] [facility] 9 11:08:24 89168 Seroquel medicatio n Not available Not available Not available 01/17/2019 02075 RxNorm Patience fagan, [place] [facility] 9 11:08:32 92463 codeine medicatio n dry mouth severe Not available 05/22/2021 2670 RxNorm feels like hair on her Ramon fagan, [place] [facility] 1 11:28:52 Medications Name Sig Start Date Stop Date Status Note LastModified by Organization Details LastModified Time vitamin b-12 500mcg tablet 05/02 completed Not Available Not Available Not Available vitamin b-12 500mcg tab 01/17 completed Not Available Not Available Not Available amoxicillin 500 mg capsule TAKE 1 CAPSULE BY MOUTH 3 TIMES A DAY UNTIL FINISHED 02/12 completed Not Available Not Available Not Available atorvastati n 80 mg tablet 01/17 completed Not Available Not Available Not Available oxcarbazepi ne 150 mg tablet 1 tab in am 10/25 completed Not Available Not Available Not Available carvedilol 25 mg tablet TAKE 1 TABLET BY MOUTH TWICE A DAY active Not Available Not Available No t Available prednisone 10 mg tablet TAKE 4 TABLETS BY MOUTH EVERY DAY WITH MEALS FOR 5 DAYS 02/12 completed Not Available Not Available Not Available doxycycline hyclate 100 mg capsule 03/08 completed Not Available Not Available Not Available carvedilol 12.5 mg tablet TAKE 1 TABLET BY MOUTH TWICE A DAY active Not Available Not Available No t Available torsemide 20 mg tablet TAKE 1 TABLET BY MOUTH TWICE A DAY active Not Available Not Available No t Available atorvastati n 10 mg tablet 01/17 completed Not Available Not Available Not Available ibuprofen 800 mg tablet TAKE 1 TABLET BY MOUTH 3 TIMES A DAY NEEDED 02/12 completed Not Available Not Available Not Available Lidocaine Viscous 2 % mucosal solution 02/12 completed Not Available Not Available Not Available fluconazole 150 mg tablet 03/06 completed Not Available Not Available Not Available meloxicam 15 mg tablet TAKE 1 TABLET BY MOUTH EVERY DAY 02/12 completed Not Available Not Available Not Available prednisone 20 mg tablet TAKE 2 TABLETS BY MOUTH DAILY FOR 5 DAYS WITH FOOD OR MILK 02/12 completed Not Available Not Available Not Available propranolol ER 60 mg capsule,24 hr,extended release 03/06 completed Not Available Not Available Not Available metronidazo le 250 mg tablet TAKE 1 TABLET BY MOUTH THREE TIMES A DAY UNTIL FINISHED active Not Available Not Available No t Available methylpredn isolone 4 mg tablet 01/17 completed Not Available Not Available Not Available metformin 850 mg tablet TAKE 1 TABLET BY MOUTH EVERY MORNING 08/28 completed Not Available Not Available Not Available atenolol 25 mg tablet 01/17 completed Not Available Not Available Not Available clindamycin HCl 150 mg capsule TAKE 1 CAPSULE BY MOUTH FOUR TIMES A DAY 02/12 completed Not Available Not Available Not Available meclizine 12.5 mg tablet TAKE 1 TABLET BY MOUTH THREE TIMES A DAY NEEDED FOR DIZZINES 03/06 completed Not Available Not Available Not Available metronidazo le 500 mg tablet 03/08 completed Not Available Not Available Not Available hydroxyzine HCl 50 mg tablet TAKE 1 TABLET BY MOUTH EVERY DAY NEEDED FOR ANXIETY active Not Available Not Available No t Available oxcarbazepi ne 300 mg tablet 1 tab in pm 10/25 completed Not Available Not Available Not Available melatonin 3 mg tablet 01/17 completed Not Available Not Available Not Available clopidogrel 75 mg tablet TAKE 1 TABLET BY MOUTH EVERY DAY 01/17 completed Not Available Not Available Not Available [...] azole 800 mg-trimetho prim 160 mg tablet 01/17 completed Not Available Not Available Not Available tramadol 50 mg tablet TAKE 1 TABLET BY MOUTH EVERY 8 HOURS active Not Available Not Available No t Available triamcinolo ne acetonide 0.1 % topical cream 03/08 completed Not Available Not Available Not Available meloxicam 7.5 mg tablet 05/02 completed Not Available Not Available Not Available methocarbam ol 750 mg tablet TAKE 1 2 TABLETS BY MOUTH 3 TIMES DAILY NEEDED FOR PAIN/MUSC LE SPASM active Not Available Not Available No t Available cyanocobala min (vit B-12) 500 mcg tablet 02/12 completed Not Available Not Available Not Available triamcinolo ne acetonide 0.025 % topical cream 05/31 completed Not Available Not Available Not Available fluvoxamine 25 mg tablet 10/25 completed Not Available Not Available Not Available baclofen 10 mg tablet TAKE 1 TABLET BY MOUTH 3 TIMES A DAY FOR MUSCLE PAIN active Not Available Not Available No t Available amlodipine 10 mg tablet 05/02 completed Not Available Not Available Not Available torsemide 5 mg tablet 02/12 completed Not Available Not Available Not Available fluvoxamine 100 mg tablet TAKE 1 TABLET BY MOUTH EVERY DAY active Not Available Not Available No t Available doxycycline monohydrate 100 mg capsule 05/31 completed Not Available Not Available Not Available levothyroxi ne 125 mcg tablet TAKE 1 TABLET BY MOUTH EVERY DAY active Not Available Not Available No t Available clotrimazol e-betametha sone 1 %-0.05 % topical cream APPLY TO AFFECTED AREA TWICE A DAY 12/04 completed Not Available Not Available Not Available docusate sodium 100 mg capsule TAKE 1 CAPSULE BY MOUTH 2 TIMES A DAY NEEDED FOR CONSTIPAT ION active Not Available Not Available No t Available gabapentin 300 mg capsule TAKE 1 CAPSULE BY MOUTH 3 TIMES A DAY active Not Available Not Available No t Available aspirin 81 mg chewable tablet TAKE 1 TABLET BY MOUTH EVERY DAY active Not Available Not Available No t Available hydrocortis one 2.5 % topical cream APPLY EXTERNALL Y TO FEET TWICE A DAY DIRECTED active Not Available Not Available No t Available amoxicillin 250 mg capsule active Not Available Not Available Not Available Personal Best Full Range device FULL RANGE FOR ADULT active Not Available Not Available No t Available montelukast 10 mg tablet TAKE 1 TABLET BY MOUTH EVERY DAY IN THE EVENING 02/12 completed Not Available Not Available Not Available hydroxyzine HCl 25 mg tablet TAKE 1 TABLET BY MOUTH AT BEDTIME NEEDED FOR ITCHING.M AY REPEAT ONCE 02/12 completed Not Available Not Available Not Available hydrochloro thiazide 25 mg tablet TAKE 1 TABLET BY MOUTH EVERY DAY active Not Available Not Available No t Available furosemide 20 mg tablet 03/06 completed Not Available Not Available Not Available fluvoxamine 50 mg tablet 10/25 completed Not Available Not Available Not Available gabapentin 100 mg capsule TAKE 2 CAPSULES BY MOUTH EVERY DAY AT BEDTIME. START WITH 1 CAPSULES AT BEDTIME & INCREASE TO 2 CAPS active Not Available Not Available No t Available nystatin 100,000 unit/gram topical powder 03/08 completed Not Available Not Available Not Available ibuprofen 600 mg tablet 03/08 completed Not Available Not Available Not Available [...] DAY FOR A TOTAL OF 6 DAYS 02/12 completed Not Available Not Available Not Available albuterol sulfate HFA 90 mcg/actuati on aerosol inhaler INHALE 2 PUFFS EVERY 4 HOURS NEEDED FOR WHEEZING active Not Available Not Available No t Available ketoconazol e 2 % topical cream APPLY TO AFFECTED AREA EVERY DAY active Not Available Not Available No t Available losartan 100 mg tablet TAKE 1 TABLET BY MOUTH EVERY DAY 02/12 completed Not Available Not Available Not Available fluticasone propionate 50 mcg/actuati on nasal spray,suspe nsion active Not Available Not Available Not Available metformin ER 500 mg tablet,exte nded release 24 hr TAKE 1 TABLET BY MOUTH EVERY DAY active Not Available Not Available No t Available clotrimazol e 1 % topical cream 03/06 completed Not Available Not Available Not Available doxycycline hyclate 100 mg tablet TAKE 1 TABLET BY MOUTH TWICE A DAY FOR 7 DAYS 05/22 completed Not Available Not Available Not Available prazosin 2 mg capsule TAKE 1 CAPSULE BY MOUTH TWICE A DAY 02/12 completed Not Available Not Available Not Available naproxen 500 mg tablet 10/25 completed Not Available Not Available Not Available levothyroxi ne 112 mcg tablet 05/02 completed Not Available Not Available Not Available amoxicillin 500 mg-aubree albarado clavulanate 125 mg tablet 05/31 completed Not Available Not Available Not Available oxycodone 5 mg tablet TAKE 1 TABLET BY MOUTH EVERY 8 HOURS NEEDED FOR 7 DAYS 05/22 completed Not Available Not Available Not Available cholecalcif agnieszka (vitamin D3) 25 mcg (1,000 unit) capsule TAKE ONE CAPSULE BY MOUTH EVERY DAY 03/06 completed Not Available Not Available Not Available DentaGel 1.1 % BRUSH 2-3 TIMES DAILY WITHOUT RINSING DIRECTED 10/25 completed Not Available Not Available Not Available Pneumovax-2 3 25 mcg/0.5 mL injection syringe TO BE ADMINISTE RED BY PHARMACIS T FOR IMMUNIZAT ION 03/08 completed Not Available Not Available Not Available ciclopirox 0.77 % topical cream APPLY TOPICALLY TO AFFECTED AREA ON FEET EXTERNALL Y TWICE A DAY active Not Available Not Available No t Available Vitamin D3 25 mcg (1,000 unit) tablet TAKE 1 TABLET BY MOUTH EVERY DAY active Not Available Not Available No t Available Arthritis Pain Relief (acetaminop hen) ER 650 mg tablet,exte nd release active Not Available Not Available N ot Available aripiprazol e 5 mg tablet 02/12 completed Not Available Not Available Not Available rosuvastati n 5 mg tablet TAKE 1 TABLET BY MOUTH EVERY DAY active Not Available Not Available No t Available bupropion HCl XL 300 mg 24 hr tablet, extended release TAKE 1 TABLET BY MOUTH EVERY MORNING active Not Available Not Available No t Available metoprolol tartrate 25 mg tablet TAKE 1 TABLET BY MOUTH TWICE A DAY 03/06 completed Not Available Not Available Not Available nitrofurant oin monohydrate /macrocryst als 100 mg capsule 05/22 completed Not Available Not Available Not Available duloxetine 20 mg capsule,del ayed release 10/25 completed Not Available Not Available Not Available duloxetine 30 mg capsule,del ayed release 10/25 completed Not Available Not Available Not Available Advair HFA 230 mcg-21 mcg/actuati on aerosol inhaler INHALE 2 PUFFS TWICE A DAY active Not Available Not Available No t Available aripiprazol e 2 mg tablet TAKE 1 TABLET BY MOUTH EVERY DAY active Not Available Not Available No t Available oxycodone 10 mg tablet TAKE 1 TABLET BY MOUTH 3 TIMES A DAY FOR 7 DAYS 05/22 completed Not Available Not Available Not Available diclofenac 1 % topical gel active Not Available Not Available Not Available melatonin 5 mg tablet 05/31 completed Not Available Not Available Not Available Gavilax 17 gram/dose oral powder active Not Available Not Available Not Available Incruse Ellipta 62.5 mcg/actuati on powder for inhalation INHALE 1 PUFF BY MOUTH EVERY 24 HOURS active Not Available Not Available No t Available Rexulti 1 mg tablet 05/02 completed Not Available Not Available Not Available Spiriva Respimat 1.25 mcg/actuati on solution for inhalation 12/04 completed Not Available Not Available Not Available Shingrix (PF) 50 mcg/0.5 mL intramuscul ar suspension, kit 01/17 completed Not Available Not Available Not Available Fluzone High-Dose 8301-1361 (PF) 180 mcg/0.5 mL intramuscul ar syringe 03/08 completed Not Available Not Available Not Available Fluzone High-Dose 2018- (PF) 180 mcg/0.5 mL intramuscul ar syringe 05/02 completed Not Available Not Available Not Available Vitals Date Recorded Body height Heart rate Oxygen saturation Systolic And Diastolic Provider Name and Address Organization Details Last Updated DateTime 02/12/2021 163.83 cm 81 /min 91 % 154/80 mm[Hg] Noy Wolf [place] [facility] 02/12/2021 14:08:33 Date Recorded Body height Heart rate Oxygen saturation Systolic And Diastolic Provider Name and Address Organization Details Last Updated DateTime 05/22/2021 163.83 cm 80 /min 97 % 151/83 mm[Hg] Noy Wolf [place] [facility] 05/22/2021 11:34:05 Date Recorded Body height Heart rate Oxygen saturation Pain severity - 0-10 verbal numeric rating [Score] - Reported Systolic And Diastolic Provider Name and Address Organization Details Last Updated DateTime 08/28/2021 163.83 cm 90 /min 94 % 7 163/82 mm[Hg] Princess ramirez [place] - [facility] 12/08/202 1 13:03:28 Social History Question Answer Notes LastModified by Organizat ion Details LastModified Time Tobacco Smoking Status Former Smoker Quit x 5 years Patience fagan [place] - [facility] 01/17/2019 11:13:32 Which Illicit Or Recreational Drugs Have You Used? No Information not available 01/17/2019 Education 12 Information no t available 01/17/2019 Live Alone Or With Others? With Others [email or web address] Information not available 01/17/2019 Marital Status Single [email or web address] Informatio n not available 01/17/2019 What Was The Date Of Your Most Recent Tobacco Screening? 04/08/2019 Information not available 04/13/2019 How Many Years Have You Smoked Tobacco? 30 [email or web address] Information not available 01/17/2019 Sex: Unknown Functional Status Question Answer Note LastModified by Organizat ion Details LastModified Time What is your level of alcohol consumption? None Recovery x 19 years [email or web address] Information not available 01/17/2019 Mental Status None recorded. Family History Relationship Description Onset Age of this Age Resolved Age Notes LastModified by Organization Details LastModified Time Father Malignant neoplastic disease Rectal Not available 2018 11:12:43 Mother Dementia Not availabl e 01/17/2019 11:12:56 Medical History Condition Response Anxiety Disorder Y Arthritis Y High Cholesterol Y Hypertension Y Hypothyroidism Y Depression Y Asthma Y Gynecological HistoryNo gynecological history recorded. Obstetrics History GPAL:G 0 P 0 0 0 0 Past Encounters Encounter ID Performer Location Encounter Start Date Encounter Closed Date Diagnosis/Indication Diagnosis SNOMED-CT Code Diagnosis ICD10 Code Diagnosis IMO Codes Diagnosis Note [id number] Balaji Rubin MD PAIN OFFICE [address] [facility] [address] [place] [address] 01/17/2019 10:31:41 01/17/2019 13:39:38 Lumbosacral spondylosis without myelopathy 09029661 M47.817 Scoliosis of lumbar spine 136654933 M41.87 Osteoarthr itis of left knee joint 4086639370 75627 M17.12 Osteoarthr itis of right knee joint 9905156869 76147 M17.11 Osteoarthritis of hip 23 0692833 M16.11 01753 Balaji Rubin MD [facility] [address] [employer] [address] [place] [address] 03/08/2019 13:00:02 03/11/2019 11:20:55 Lumbosacral spondylosis without myelopathy 83652305 M47.817 Scoliosis of lumbar spine 656250772 M41.87 Osteoarthr itis of left knee joint 4360384419 46240 M17.12 Osteoarthr itis of right knee joint 1919980580 95003 M17.11 Osteoarthritis of hip 23 7366679 M16.11 37857 Balaji Rubin MD [facility] [address] [place] [address] 04/07/2019 13:03:47 04/08/2019 10:37:06 Lumbosacral spondylosis without myelopathy 56758994 M47.817 Scoliosis of lumbar spine 332169963 M41.87 Osteoarthr itis of left knee joint 9235543774 49874 M17.12 Osteoarthr itis of right knee joint 8508233212 56073 M17.11 Osteoarthritis of hip 23 2248789 M16.11 65526 Balaji Rubin MD PAIN OFFICE [address] [place] [address] 05/31/2019 13:05:43 06/01/2019 16:35:03 Lumbosacral spondylosis without myelopathy 76401947 M47.817 Scoliosis of lumbar spine 919227435 M41.87 Osteoarthr itis of left knee joint 4109418798 73441 M17.12 Osteoarthr itis of right knee joint 2442227856 05613 M17.11 Osteoarthritis of hip 23 4958920 M16.11 88563 Balaji Rubin MD [facility] [address] [place] [address] 06/22/2019 15:45:57 07/04/2019 19:44:22 Lumbosacral spondylosis without myelopathy 42401287 M47.817 Scoliosis of lumbar spine 269563609 M41.87 Osteoarthr itis of left knee joint 5121673378 86575 M17.12 Osteoarthr itis of right knee joint 6765069022 44814 M17.11 Osteoarthritis of hip 23 9402480 M16.11 Lumbosacra l radiculopathy 0999102 M54.17 41853 Balaji Rubin MD PAIN OFFICE [address] [employer] [facility] [place] [address] 07/25/2019 13:04:41 07/25/2019 14:47:13 Lumbosacral spondylosis without myelopathy 71356798 M47.817 Scoliosis of lumbar spine 447842945 M41.87 Osteoarthr itis of right knee joint 1531232529 11833 M17.11 Osteoarthr itis of left knee joint 0672443869 39126 M17.12 19865 Balaji Rubin MD PAIN OFFICE [address] [employer] [facility] [place] [address] 10/25/2019 10:36:19 10/25/2019 16:52:00 Lumbosacral radiculopathy 9585290 M54.17 Lumbosacra l spondylosis without myelopathy 58885459 M47.817 Scoliosis of lumbar spine 641918600 M41.87 Osteoarthr itis of right knee joint 3421598851 M17.11 Osteoarthr itis of left knee joint 8464012614 69241 M17.12 81168 Balaji Rubin MD [facility] [address] [employer] [address] [facility] [place] [address] 12/05/2019 13:32:28 12/05/2019 13:56:08 Lumbosacral radiculopathy 1918654 M54.17 Lumbosacra l spondylosis without myelopathy 86912707 M47.817 Scoliosis of lumbar spine 889018521 M41.87 Osteoarthr itis of right knee joint 5135686256 M17.11 Osteoarthr itis of left knee joint 3148229589 M17.12 29675 Balaji Rubin MD PAIN OFFICE [address] [employer] [facility] [place] [address] 03/06/2020 09:46:04 03/07/2020 14:32:58 Lumbosacral spondylosis without myelopathy 86271040 M47.817 Scoliosis of lumbar spine 671596255 M41.87 Osteoarthr itis of left knee joint 3327393598 75791 M17.12 Osteoarthr itis of right knee joint 2683488074 59949 M17.11 Osteoarthritis of hip 23 8146646 M16.11 88201 Balaji Rubin MD [facility] [address] [employer] [address] [place] [address] 05/02/2020 10:20:18 05/02/2020 13:58:05 Lumbosacral spondylosis without myelopathy 99988528 M47.817 Scoliosis of lumbar spine 963363789 M41.87 Osteoarthr itis of left knee joint 6283264156 53396 M17.12 Osteoarthr itis of right knee joint 7259623552 36577 M17.11 Osteoarthritis of hip 23 1249886 M16.11 15124 Balaji Rubin MD PAIN OFFICE [address] [employer] [address] [place] [address] 02/12/2021 13:58:47 02/12/2021 16:21:03 Lumbosacral spondylosis without myelopathy 40052930 M47.817 Scoliosis of lumbar spine 636595565 M41.87 Osteoarthr itis of left knee joint 7574566572 87628 M17.12 Osteoarthr itis of right knee joint 6756869375 41253 M17.11 Osteoarthritis of hip 23 1307198 M16.11 55107 Balaji Rubin MD [facility] [address] [employer] [address] [place] [address] 03/14/2021 09:36:46 03/26/2021 09:29:16 Osteoarthritis of left knee joint 8631367363 18292 M17.12 Osteoarthr itis of right knee joint 2055802796 80382 M17.11 Osteoarthritis of hip 23 0256748 M16.11 Lumbosacra l spondylosis without myelopathy 06797805 M47.817 Scoliosis of lumbar spine 665784455 M41.87 Inflammati on of sacroiliac joint 51451802 M46.1 31685 Balaji Rubin MD [facility] [address] [employer] [address] [place] [address] 05/22/2021 11:21:44 05/22/2021 16:00:40 Lumbosacral spondylosis without myelopathy 99859170 M47.817 Scoliosis of lumbar spine 824966090 M41.87 Inflammati on of sacroiliac joint 33864816 M46.1 Osteoarthr itis of left knee joint 8875182004 25666 M17.12 Osteoarthr itis of right knee joint 1317512792 89801 M17.11 Osteoarthritis of hip 23 7365928 M16.11 76473 Balaji Rubin MD [facility] [address] [place] [address] 06/24/2021 14:39:10 06/24/2021 14:52:34 Lumbosacral spondylosis without myelopathy 44930521 M47.817 Scoliosis of lumbar spine 675631257 M41.87 Inflammati on of sacroiliac joint 30821319 M46.1 Osteoarthr itis of left knee joint 1148241862 74918 M17.12 Osteoarthr itis of right knee joint 4971529314 63693 M17.11 Osteoarthritis of hip 23 0169328 M16.11 76446 Balaji Rubin MD [facility] [address] [employer] [address] [place] [address] 08/28/2021 13:01:09 08/28/2021 15:37:20 Lumbosacral radiculopathy 5393069 M54.17 Lumbosacra l spondylosis without myelopathy 44282624 M47.817 Scoliosis of lumbar spine 838072550 M41.87 Osteoarthr itis of right knee joint 9526453093 41726 M17.11 Osteoarthr itis of left knee joint 7294156098 84325 M17.12 Inflammati on of sacroiliac joint 89028929 M46.1 Osteoarthritis of hip 23 1179752 M16.11 Health Concerns Section Related Observation LastModified by Organization Detai ls LastModified Time None Recorded Concern Status LastModified by Organization Details LastModified Time None Recorded Advance Directives Directive None Recorded Payers Insurance Date Sequence Insurance Name Policy Number Policy Lyons Covered Member ID Lyons Member ID Guarantor Name 02/11/2021 1 [facility] - DOS PRIOR TO 2022 - DUAL ELIGIBLE (MEDICARE REPLACEMENT/ADV ANTAGE - HMO) Sharon Nugent [id number] Sharon Nugent Notes Date Note Type Note Provider Name and Address Organization Details Recorded Time 02/12/2021 text/html She is here for a right facet joint steroid injection under fluoroscopic guidance Balaji Rubin MD [address] [facility] , [address], [place], [address], [place] [facility] 02/12/2021 16:25:02 03/14/2021 text/html She is here for a follow up after a right facet joint injection under fluoroscopic guidance. She reports 50% pain benefit which is ongoing. She still continues to have some pain in the right side of her back which radiates into the right buttock region and pain is aggravated by prolonged standing. She has no radiating pain.She has no history of bladder or bowel incontinence. Balaji Rubin MD [address] [facility] , [address], [place], [address], [place] [facility] 03/27/2021 08:29:13 05/22/2021 text/html She is here for a right sacroiliac joint steroid injection under fluoroscopic guidance Balaji Rubin MD [address] [facility] [address], [place], [address], [place] [facility] 05/23/2021 11:30:43 06/24/2021 text/html This is a follow up after a Right sacroiliac steroid injection under fluoroscopic guidance. She reports 50% pain relief which is ongoing. She is walking better and has been walking one mile a day or more. She is complaining of low back pain radiating into right lower extremity. She has no history of bladder or bowel incontinence.She is seeing Dr. Epperson, orthopedic surgeon at [facility] and is having CT scan done. Balaji Rubin MD [address] [facility] , [address], [place], [address], [place] [facility] 06/25/2021 10:34:35 08/28/2021 text/html She is here for a trial of lumbar epidural steroid injection under fluoroscopic guidance. Balaji Rubin MD [address] [facility] , [address], [place], [address], [facility] 08/28/2021 16:19:58 OBGyn Episode No OBEpisode recorded.
--- OUTSIDE RECORDS SUMMARY | 2025-09-12 05:47 | XMS_ITS | Continuity of Care Document ---
Author Name [facility]ED, Medical Address [address] [place] [address] Organization Unknown Address [address] [place] [address] Medications No known medications Problems No known problems
--- OUTSIDE RECORDS SUMMARY | 2025-09-12 05:47 | XMS_ITS | Patient Health Record ---
Author Organization [facility] Address [address] [place] [address] Care Team Providers Care Rn Cvicu Name Role Phone Raven Lyons Primary Care Provider Bibi Flores Unavailable [phone] Allergies Allergen (clinical drug ingredient) Drug/Non Drug Allergy documented on EMR Reaction Allergy Type Onset Date Status codeine codine (uncoded) rash Allergy Act vic lisinopril lesinopril (uncoded) Unknown Allergy Active loratadine Claritin rash Drug Allergy Active quetiapine SEROquel rash Drug Allergy Active Reason For Referral No Information Medications Medication SIG (Take, Route, Frequency, Duration) Notes Start Date End Date Status Ciclopirox Olamine 0.77 % 1 application to affected area Externally Twice a day to effected areas on feet; Duration: 30 days 04/12/2021 Active Hydrocortisone 2.5 % as directed Externally to feet Twice a day; Duration: 30 days Active Levothyroxine Sodium 112 MCG Orally Once a day Active Clopidogrel Bisulfate 75 MG Orally Once a day Not-Taking ARIPiprazole 5 MG Orally Once a day Active Metoprolol Succinate 25 MG Orally 2 x a day Not-Taking OXcarbazepine 150 Mg AM/ 300 mg PM Orally Twice a day Active Advair HFA 230-21 MCG/ACT Inhalation Twice a day Not-Taking hydrOXYzine HCl 25 MG 1 tablet as needed Orally Active Baclofen 10 MG/20ML as directed Intrathecal Not-Taking Vitamin D 1000 UNIT Orally Active Vitamin B 12 1,000mcg Not-Taking buPROPion HCl 300mg 1 daily Active metFORMIN HCl Not-Ta lyle Nystatin 785317 UNIT/GM Externally Active Prazosin HCl 2 MG 2 capsules @ HS Orally Not-Taking Estradiol Active Clotrimazole-Betametha sone 1-0.05 % 1 application Externally Twice a day; Duration: 30 days 09/02/2019 Not-Taking Terbinafine HCl 1 % 1 application Externally Once a day; Duration: 30 days 10/07/2023 Not-Taking Gabapentin 300 MG 1 capsule Orally Twice a day; Duration: 30 days 2 a day 3 at night 09/30/2021 Not-Taking Multivitamin once a day Active Aspir-81 Once a day Active MRI . . . Left foot WO contrast Dx Metatarsalgia of left foot - M77.42 09/23/2021 Not-Taking Tylenol 500 mg Activ e Lotrimin AF 2 % 1 application Externally Twice a day; Duration: 14 day(s) 09/18/2021 Active Atorvastatin Calcium 80 MG Orally 1 @ hs Not-Taking Ciclopirox Olamine 0.77 % 1 application to affected area Externally to feet Twice a day; Duration: 30 days Active Chlorthalidone 25 MG Orally Once a day Not-Taking Ketoconazole 2 % APPLY DAILY TO SKIN TO AFFECTED AREA EVERY DAY FOR 30 DAYS; Duration: 30 Active traMADol HCl 50 MG 1 tablet as needed Orally Every 6 hours; Duration: 14 days 09/30/2021 Active Farxiga Active Trelegy Ellipta Not- Taking Adderall Active Orthopedic Extra Depth Shoes With Custom Heat Molded Multidensity Innersoles as directed Wear Daily; Duration: as needed 07/08/2022 Active Torsemide 20 MG as directed Orally Active Medrol 4 MG as directed Orally 09/18/2021 Not-Taking Losartan Potassium 100 MG 1 tablet Orally Once a day; Duration: 30 day(s) Active Crestor 5 MG Orally Not-Jeremy ing Ciclopirox Olamine 0.77 % 1 application to affected area Externally to feet Twice a day; Duration: 30 days Not-Taking Carvedilol 25 MG 1 tablet with food Orally Twice a day; Duration: 30 day(s) Active Losartan Potassium 100 MG Orally Once a day Not-Taking baclofin 10 mg once a day Not- Taking Immunizations Vaccine Route Administration Date Status Comme nts Influenza Unknown 06/24/2024 Administered Influenza Unknown 06/23/2025 Administered COVID-19 Moderna Vaccine Unknown 07/21/2021 Administered First [...] Problem Status W/U Status Risk Notes Problem Bilateral atherosclerosis of arteries of lower limbs (disorder) ([id number] ) Atherosclerosis of artery of both lower extremities (I70.203) Active confirmed Vital Signs Blood pressure diastolic 65 mm Hg 08/04/2025 Height 5ft3in in 08/04/2025 Blood pressure systolic 128 mm Hg 08/04/2025 Weight 243 lbs 08/04/2025 BMI 43.04 kg/m2 08/04/2025 Encounters Encounter Location Date Provider Diagnosis [address] [address] 12/01/2024 Bibi Perica Pain in right toe(s) M79.674 ; Tinea unguium B35.1 ; Pain in left toe(s) M79.675 and Atherosclerosis of artery of both lower extremities I70.[address] [address] 02/14/2025 Bibi Perica Pain in right toe(s) M79.674 ; Tinea unguium B35.1 ; Pain in left toe(s) M79.675 and Atherosclerosis of artery of both lower extremities I70.[address] [address] 08/04/2025 Bibi Perica Pain in right toe(s) M79.674 ; Tinea unguium B35.1 ; Pain in left toe(s) M79.675 and Atherosclerosis of artery of both lower extremities I70.[address] [address] 10/25/2024 Bibi Perica [address] [place] [address] 11/17/2024 Bibi Siddiqi [facility] [place] [address] [place] [address] 04/24/2025 Bibi Siddiqi [facility] [place] [address] [place] [address] 06/23/2025 Bibi Siddiqi Assessments Encounter Date Diagnosis (ICD Code) Assessment Notes Treatment Notes Treatment Clinical Notes Section Notes 12/01/2024 Pain in right toe(s) (ICD-10 - M79.674) 02/14/2025 Pain in right toe(s) (ICD-10 - M79.674) 08/04/2025 Pain in right toe(s) (ICD-10 - M79.674) 02/14/2025 Tinea unguium (ICD-10 - B35.1) 08/04/2025 Tinea unguium (ICD-10 - B35.1) 12/01/2024 Pain in left toe(s) (ICD-10 - M79.675) 12/01/2024 Tinea unguium (ICD-10 - B35.1) 12/01/2024 Atherosclerosis of artery of both lower extremities (ICD-10 - I70.203) 02/14/2025 Pain in left toe(s) (ICD-10 - M79.675) 08/04/2025 Pain in left toe(s) (ICD-10 - M79.675) 08/04/2025 Atherosclerosis of artery of both lower extremities (ICD-10 - I70.203) 02/14/2025 Atherosclerosis of artery of both lower [...] X ray : Foot, right 3V 09/03/2021 [id number] NAIL, 6 OR MORE 09/01/2018 [id number], [id number]/INJECT, JOINT/BURSA 1 11/04/2020 Next Appt Details Provider Name:Bibi whitaker, 10/25/2025 02:00:00 PM, [address] [place], [address], Insurance Providers Payer Name Payer Address Payer Phone Subscriber Number Group Number Insured Name Patient Relationship to Insured Coverage Start Date Coverage End Date [facility] [employer] Claims [address] [place] [address] [id number] Sharon Nugent Self - patient is the insured Medical (General) History Medical History History ICD Code High blood pressure Cholesterol Anxiety Depression Sciatica asthma Obesity Surgical History Surgery Date(Month/Year) basel Cell 2009 Hospitalization History Reason Date(Month/Year) cellulitis 03/2025 ER- anxiety, dizzy 01/13
--- OUTSIDE RECORDS SUMMARY | 2025-09-12 05:47 | XMS_ITS | Continuity of Care Document ---
Author Organization [facility] [place] [facility] Address [address] [place] [address] Care Team Providers Care Manager Environmental Services Name Role Phone TIMOTHY WAKEFIELD Primary Care Provider [phone] HIM CCA OTHER Assessment Encounter Date Assessment Date Assessment LastModified by Organization Details LastModified Time 06/28/2025 06/28/2025 As noted, we wer e called to see this patient regarding concerns of Rash. Evaluation in the field was performed by my food preparer colleague, as noted above, I provided real-time direction and supervision for this visit. Patient has been having a rash at the back of her left knee and at the front of her chiu for the past week. She has been scratching her chiu as it is very itchy. The rash at the front of her chiu is not consistent with cellulitis. It is nonblanching. Recommend hydrocortisone cream for this rash. The one at the back of her knee is consistent with a fungal rash. Will prescribed her nystatin cream. Patient was encouraged to follow up with her PCP. Impression: Rash Plan: Follow-up PCP Primary care, consider Dermatology referral Disposition: We discussed the diagnostic uncertainty of home visits and the risk associated with this. In this case, the patient and I felt this to be an acceptable and reasonable amount of risk given the benefit of avoiding an ED visit. We discussed the need to seek care urgently/emergent ly in the setting of any new or worsening serious symptoms, particularly Fevers, spreading of rash throughout body, chest pain, shortness of breath. [email or web address] Not available 06/28/2025 10:31:42 Plan of Treatment Reminders Order Date Submit Date Provider Last Modified By Organization Details Last Modified Time Details Appointments None recorded. Lab None recorded. Referral None recorded. Procedures None recorded. Surgeries None recorded. Imaging None recorded. Medication Orders hydrocorti sone 1 % topical cream 2024 025 JUAN [id number], [address] [place], [address], 5 10:06:16 nystatin 100,000 unit/gram topical cream 2024 025 AT[id number], [address] [place], [address], 16:17:58 Patient TargetsNo targets recorded. Patient InstructionsNo instructions recorded. Reason for Referral None Reported. Problems Name Problem SNOMED Code Status Onset Date Resolution Date Notes Provider Name and Address Organization Details Recorded Time Lumbosacral radiculopat hy 2683120 Channing Myles MD [address] [place] [address],[address] [place], [address], [place], [employer] 16:20:58 Osteoarthri tis of hip 280815265 Channing Myles MD [address] [place] [address],[address] [facility], [place], [address], [place] [facility], [employer] 16:21:35 Osteoarthri tis of left knee joint [id number] 09 Channing Myles MD [address] [place] [address],[address] [facility], [place], [address], [place] [facility] 16:21:44 Osteoarthri tis of right knee joint [id number] 00 Channing Myles MD [address] [place] [address],[address], [place], [address], [place] [employer] [employer] 16:21:50 Scoliosis of lumbar spine 194535240 Channing Myles MD [address] [place] [address],[address] [facility], [place], [address], [place] [employer] [employer] 16:21:58 Resting tremor 36035436 Channing Myles MD [address] [place] [address],[address], [place], [address], [place] [facility], [employer] 5 16:22:07 Hypothyroid ism 94299582 Active Magdiel Myles MD [address] [place] [address],[address], [place], [address], [place] [facility] 16:23:04 Asthma 926832020 Active 2020 Magdiel Myles MD [address] [place] [address],[address], [place], [address], [place] [employer] [employer] 16:20:12 Chronic kidney disease stage 2 633003595 Active 2020 Magdiel Myles MD [address] [place] [address],[address], [place], [address], [place] [facility] 16:20:16 Essential hypertensio n 05797459 Active 2020 Magdiel Myles MD [address] [place] [address],[address], [place], [address], [place] [employer] [employer] 16:20:19 Hyperlipide robin 67398069 Active 2020 Magdiel Myles MD [address] [place] [address],[address], [place], [address], [place] [employer] [employer] 16:20:22 Hyperthyroi dism 12382915 Active 2020 Magdiel Myles MD [address] [place] [address],[address], [place], [address], [place] [employer] 16:20:29 Edema 145003736 Active 2020 Magdiel Myles MD [address] [place] [address],[address], [place], [address], [place] [employer] 16:21:02 Mixed anxiety and depressive disorder 684922240 Active 2020 Magdiel Myles MD [address] [place] [address],[address], [place], [address], [place] [employer] [employer] 16:21:07 Obstructive sleep apnea syndrome 05664681 Active 2020 Magdiel Myles MD [address] [place] [address],[address], [place], [address], [facility] - [facility], [employer] 5 16:21:16 Osteoarthri tis of knee 438744738 Active 2020 Magdiel Myles MD [address] [place] [address],[address], [place], [address], [employer] - [facility], [employer] 5 16:21:39 Osteoarthri tis of right hip joint 1569083037874 07 Active 2020 Magdiel Myles MD [address] [place] [address],[address], [place], [address], [employer] - [facility], [employer] 5 16:21:47 Problem Notes None recorded. Medical Equipment None Reported. Allergies Allergen ID Allergen Name Allergen Category Reaction Reaction Severity Criticality Documentation Date Start Date Code Code System Note Provider Name and Address Organization Details Recorded Time 97735 lisinopri l medicatio n Not available Not available Not available 10/10/2024 73129 RxNorm Not Available [facility] - [facility] 5 11:33:21 40039 Seroquel medicatio n Not available Not available Not available 10/10/2024 25128 RxNorm Not Available [facility] - [facility] 5 11:33:21 20679 Claritin medicatio n Not available Not available Not available 10/10/2024 26772 6 RxNorm Not Available [facility] - production 5 11:33:21 88010 codeine medicatio n Not available Not available Not available 04/21/2025 2670 RxNorm Not Available [facility] - production 5 15:38:18 23993 Zoloft medicatio n Not available Not available Not available 07/24/2025 01057 RxNorm Not Available [facility] - production 5 15:48:26 04939 loratadin e medicatio n Not available Not available Not available 07/24/2025 51068 RxNorm Not Available [facility] - [employer] - prod 5 17:09:57 94443 quetiapin e medicatio n Not available Not available Not available 07/24/2025 73542 RxNorm Not Available [facility] - [employer] - prod 17:09:57 33339 sertralin e medicatio n Not available Not available Not available 07/24/2025 95389 RxNorm Not Available [facility] - [employer] - prod 17:09:57 27396 amoxicill in medicatio n Not available Not available Not available 09/09/2025 723 RxNorm Raisa Tejeda MD [address] [facility],[address], [place], [address], [facility] [employer] 10:51:44 Medications Name Sig Start Date Stop [...] Available No t Available Vitals Date Recorded Oxygen saturation Body temperature Respiratory rate Heart rate Systolic And Diastolic Provider Name and Address Organization Details Last Updated DateTime 95 % 97.6 [degF] 18 /min 79 /min 152/84 mm[Hg] Not Available [facility] - [facility] 10:00:21 Social History None recorded. Functional Status None recorded. Mental Status None recorded. Family History Nothing Reported. Medical History No medical history recorded. Gynecological HistoryNo gynecological history recorded. Obstetrics History GPAL:G 0 P 0 0 0 0 Past Encounters Encounter ID Performer Location Encounter Start Date Encounter Closed Date Diagnosis/Indication Diagnosis SNOMED-CT Code Diagnosis ICD10 Code Diagnosis IMO Codes Diagnosis Note [id number] Trav Ca MD [address] [address] 05/31/2025 13:51:10 06/01/2025 11:11:34 Pain in right arm 387443230 M79.601 [id number] Magdiel Myles MD [address] [address] 06/02/2025 16:17:52 06/03/2025 00:23:07 Injury of upper arm 532308093 S46.911D [id number] Meghna Correia MD [address] [address] 06/16/2025 17:08:01 06/16/2025 19:40:14 Bilateral lower leg edema 946411369 R60.0 [id number] Brigido Antony MD [address] [address] 06/28/2025 10:00:03 06/28/2025 15:06:24 Dermal mycosis 02187205 B36.9 75722 Eruption 774798707 R21 56092 Health Concerns Section Related Observation LastModified by Organization Kelin downs LastModified Time None Recorded Concern Status LastModified by Organization Details LastModified Time None Recorded Payers Encounter Date Sequence Insurance Name Policy Number Policy Lyons Covered Member ID Lyons Member ID Guarantor Name 06/28/[address] [facility] - DOS ON OR AFTER 2022 - DUAL ELIGIBLE - [employer] AND ONE [employer] (MEDICARE REPLACEMENT/ADV ANTAGE - HMO) Sharon Nugent [id number] Sharon Nugent Notes Date Note Type Note Provider Name and Address Organization Details Recorded Time 06/28/2025 text/html ROS as noted in the HPI CRC Nurse Triage Notes (Katherine Owens): Reason For Request: Pt reporting a rash on the left leg, that appears to show like past cellulitis she has had>has spread from the bottom of the leg right up to the knee- Patient Reports: Rash Denies: Mulligan Flash, circumferential mulligan Mulligan reported with black tissue to the area Open skin area after a fall with uncontrolled bleeding Abscess/infection with streaking noted, presence of fever or without History of cellulitis, isolated redness noted Fever and chills noted in setting of wound Bites -bugs, spider Abscess Chief Complaints: Wound Care PMH: Congestive Heart Failure, COPD/Asthma, Coronary Artery Disease, Hypertension, Hyperlipidemia, Urinary Tract Infections (UTI), Hypothyroidism, Gout PMH Reviewed at 06/27/2025:38 Allergies Reviewed at 06/27/2025:38 Comments: 75 y.o female complains of Wound Care Self-reporting symptoms. Rash starting at bottom part of [...] a couple of weeks ago prescribed by [facility]- allergic to it so hasn't been using that since. Reports LLE swelling, denies pitting edema. Foot is warm - no signs of cyanosis. No recent medication changes. Denies gardening or insect bites. ASA 81mg daily. Denies kidney concerns. I provided information on the mobile health provider response time and advised the patient and/or caregiver to monitor reported signs and symptoms. I discussed the warning signs of when to seek emergency care. ..................... ..................... ..................... ..................... ..................... ..................... ............... Construction Director Note From [place]: Encountered patient seated upright and conscious with HIDE TRIMMER present. Patient reports for approximately one week [...] vision. Pictures of lower extremities uploaded via [employer]. Skin warm, dry and of appropriate color [...] trauma and edema; peripheral pulses present throughout. [facility] [place]: states patients lower left extremity does not appear to be suffering from cellulitis, but will require treatment to clear up. [facility] states they will send a prescription for treatment to a pharmacy of patient s choice. Patient was encouraged to avoid scratching the affected area. Patient was advised to monitor herself for increased surface area of the rash, fevers, shortness of breath, or chest pain and was encouraged to seek further medical attention, including 911 if said symptoms were to develop. Patient verbalizes understanding of the plan and states she is comfortable remaining home today. ..................... ..................... ..................... ..................... ..................... ..................... ............... [facility] Consulted: Brigido Antony ..................... ..................... ..................... ..................... ..................... ..................... ............... Disposition: Fulfilled Brigido Antony MD [address] [facility],[address] [facility], [place], [address], [employer] COX 06/28/2025 15:05:23 OBGyn Episode No OBEpisode recorded.
--- OUTSIDE RECORDS SUMMARY | 2025-09-12 05:47 | XMS_ITS | Continuity of Care Document ---
Author Name [facility], Medical Address [address] [place] [id number] Organization Unknown Address [address] [place] [address] Medications No known medications Problems No known problems
--- OUTSIDE RECORDS SUMMARY | 2025-09-12 05:47 | XMS_ITS | Continuity of Care Document ---
Author Name [facility], Medical Address [address] [place] [id number] Organization Unknown Address [address] [place] [address] Medications No known medications Problems No known problems
--- OUTSIDE RECORDS SUMMARY | 2025-09-12 05:47 | XMS_ITS | Encounter Summary ---
Author Organization [facility] Address [address] [facility] [address] [place] [address] Encounters * CPT with Medical [facility] at [facility] [employer] [facility] on 2025-09-09 { reasonForRequest : for tomorrow 09/09/25 UTI , patientReports :&q uot;Painful urination; Frequent and increased urination with flank pain; Painful urination with or without fever , denies :[ Unable to void greater than 5 hours , Erection that will not go away after 2 hours , Fall or trauma that results in urinary incontinence in the setting of pain , Fall or injury that results in incontinence in the absence of pain , Lower back pain either unilateral or bilateral, unable to void, painful urination -h ematuria , Inability to fully empty bladder ], chiefComplaints : Urinary Symptoms , pmh : Congestive Heart Failure, COPD/Asthma, Coronary Artery Disease, Hypertension, Hyperlipidemia, Urinary Tract Infections (UTI), Hypothyroidism, Gout , allergies : Lisinopril, Seroquel, Claritin, Codeine, Zoloft , otherAllergies&quot ;:null, painAssessment : , visitOutcome : , additionalComments : 75 y.o female complains of Urinary Symptoms\nPatient self referring\npatient was in hospital for UTI last week. finished course of amoxicillin 2 days ago\ndenies any fever, chills, or bodyaches\ndenies any nausea or vomiting does have loose stools\nendorses cramping in lower abdomen\npain and burning with urination\ndark cloudy yellow and is very odoriferous. \nrequesting [facility] visit for tomorrow. \nI provided information on the [facility] provider response time and advised the patient and/or caregiver to monitor reported signs and symptoms. I discussed the warning signs of when to seek emergency care. } Dispatch the home of a 75-year-old female patient with urinary issues. Patient has had some urinaryburning, melodious odor and eight out of 10. Urinary pain for the last three days. Patient was hospitalized two weeks ago for a severe urinary tract infection. 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 Results were [place] in to the [facility] [facility] [place] in ordered bloodwork, this was done without incident and blood was run on an istat. Those results were forwarded into the [facility]. Doctor then ordered one tablet ofBactrim be given, and a prescription sent to the patient???s pharmacy. Patient was warned of signs and symptoms, and went to call 911 that should things get worse. ORAL_MEDICATION, EKG, POC_BLOODWORK, GLUCOSE Written by Medical [facility] on 2025-09-09
--- OUTSIDE RECORDS SUMMARY | 2025-09-12 05:47 | XMS_ITS | Continuity of Care Document ---
Author Organization [facility], [facility] Address [address] [place] [address] Care Team Providers Care Overhead Cleaner Name Role Phone TIMOTHY WAKEFIELD Primary Care Provider HIM CCA OTHER Assessment Encounter Date Assessment Date Assessment LastModified by Organization Details LastModified Time 08/06/2025 08/06/2025 I have reviewed and agree with the assessment and plan as documented by the minister assistant. I provided real-time medical direction for this [...] Organization Details Recorded Time Lumbosacral radiculopat hy [id number] Channing Myles MD [address] [place] [address],[address], [place], [address], [employer] 16:20:58 Osteoarthri tis of hip 781335000 Channing Myles MD [address] [place] [address],[address], [place], [address], [employer] 16:21:35 Osteoarthri tis of left knee joint 4534656060215 09 Active Magdiel Myles MD [address] [place] [address],[address], [place], [address], [place] - [employer] 5 16:21:44 Osteoarthri tis of right knee joint 4888809694295 00 Active Magdiel Myles MD [address] [place] [address],[address], [place], [address], [place] [employer] 16:21:50 Scoliosis of lumbar spine 534189475 Active Magdiel Myles MD [address] [place] [address],[address], [place], [address], [place] [employer] 16:21:58 Resting tremor 33124763 Active Magdiel Myles MD [address] [place] [address],[address], [place], [address], [place] [employer] 16:22:07 Hypothyroid ism 46882397 Active Magdiel Myles MD [address] [place] [address],[address], [place], [address], [place] [employer] 16:23:04 Asthma 480920555 Active 2020 Magdiel Myles MD [address] [place] [address],[address], [place], [address], [place] [employer] 16:20:12 Chronic kidney disease stage 2 426138705 Active 2020 Magdiel Myles MD [address] [place] [address],[address], [place], [address], [place] [employer] 16:20:16 Essential hypertensio n 70454835 Active 2020 Magdiel Myles MD [address] [place] [address],[address], [place], [address], [place] [employer] 5 16:20:19 Hyperlipide robin 34126158 Active 2020 Magdiel Myles MD [address] [place] [address],[address], [place], [address], [place] [employer] [facility], [employer] 16:20:22 Hyperthyroi dism 21912529 Active 2020 Magdiel Myles MD [address] [place] [address],[address], [place], [address], [place] [employer] [employer] 16:20:29 Edema 371341103 Active 2020 Magdiel Myles MD [address] [place] [address],[address], [place], [address], [place] [employer] [facility] [employer], [employer] 16:21:02 Mixed anxiety and depressive disorder 351152686 Active 2020 Magdiel Myles MD [address] [place] [address],[address], [place], [address], [employer] [facility], [employer] 16:21:07 Obstructive sleep apnea syndrome 11028566 Active 2020 Magdiel Myles MD [address] [place] [address],[address], [place], [address], [employer] [facility], [employer] 16:21:16 Osteoarthri tis of knee 273489592 Active 2020 Magdiel Myles MD [address] [place] [address],[address], [place], [address], [employer] [facility], [employer] 16:21:39 Osteoarthri tis of right hip joint 6140501500281 07 Active 2020 Magdiel Myles MD [address] [place] [address],[address], [place], [address], [employer], [employer] 16:21:47 Problem Notes None recorded. Medical Equipment None Reported. Allergies Allergen ID Allergen Name Allergen Category Reaction Reaction Severity Criticality Documentation Date Start Date Code Code System Note Provider Name and Address Organization Details Recorded Time 03230 lisinopri l medicatio n Not available Not available Not available 10/10/2024 04211 RxNorm Not Available [facility] - [facility] 11:33:21 08276 Seroquel medicatio n Not available Not available Not available 10/10/2024 74610 RxNorm Not Available [employer] - [employer] 5 11:33:21 43086 Claritin medicatio n Not available Not available Not available 10/10/2024 59512 6 [facility] Not Available [facility] 11:33:21 88010 codeine medicatio n Not available Not available Not available 04/21/2025 2670 Rx[facility] Not Available [facility] 5 15:38:18 88806 Zoloft medicatio n Not available Not available Not available 07/24/2025 87374 Rx[facility] Not Available [facility] 15:48:26 55234 loratadin e medicatio n Not available Not available Not available 07/24/2025 60032 RxNorm Not Available [employer] - prod 5 17:09:57 53337 quetiapin e medicatio n Not available Not available Not available 07/24/2025 66951 RxNorm Not Available [employer] - prod 5 17:09:57 99254 sertralin e medicatio n Not available Not available Not available 07/24/2025 54782 RxNorm Not Available [employer] [employer] - prod 5 17:09:57 16595 amoxicill in medicatio n Not available Not available Not available 09/09/2025 723 RxNorm Raisa Tejeda MD [address] [place] [address],[address] [facility], [place], [address] [place] [address] - [employer] 5 10:51:44 Medications Name Sig Start Date [...] t Available Vitals Date Recorded Body temperature Respiratory rate Body height Oxygen saturation Heart rate Body weight Systolic blood pressure Provider Name and Address Organization Details Last Updated DateTime 5 98.6 [degF] 18 /min 160.02 cm 95 % 79 /min 872772. 12 g 128 mm[Hg] Not Available [facility] 5 13:27:50 Social History None recorded. Functional Status None recorded. Mental Status None recorded. Family History Nothing Reported. Medical History No medical history recorded. Gynecological HistoryNo gynecological history recorded. Obstetrics History GPAL:G 0 P 0 0 0 0 Past Encounters Encounter ID Performer Location Encounter Start Date Encounter Closed Date Diagnosis/Indication Diagnosis SNOMED-CT Code Diagnosis ICD10 Code Diagnosis IMO Codes Diagnosis Note [id number] Tatiana Hartley MD [facility] [address] [address] 07/24/2025 17:09:06 07/25/2025 15:42:41 Viral upper respiratory tract infection 117880650 J06.9 [id number] 75 year old female being evaluated for [...] assessment and plan as documented by the minister assistant. I provided real-time medical direction for this encounter and was immediatel y available to provide additional phone-base d assistance as needed. We discussed the diagnostic uncertaint y of home visits and associated risks. We discussed the need to seek care urgently/e mergently in the setting of any new or worsening symptoms. [id number] Sean Fish MD [facility] [address] [address] 08/01/2025 11:45:05 08/01/2025 16:11:59 Hoarse 78460475 R49.0 [id number] SEEMA ALMANZAR MD [facility] [address] [address] 08/04/2025 20:55:51 08/07/2025 16:33:20 Acute exacerbation of chronic obstructive pulmonary disease 805633756 J44.1 800254 Evaluation in the field was performed by my minister assistant colleague, as noted above, I provided real-time [...] lower-extr emity edema remains at baseline. Her senior tax specialist has had viral URI symptoms recently. She [...] rapid weight gain, or decreased urine output [id number] Laura Casey MD [facility] [address] [place] [address] 08/06/2025 13:27:39 08/07/2025 17:43:24 [facility] [id number] Health Concerns Section Related Observation LastModified by Organization Detai ls LastModified Time None Recorded Concern Status LastModified by Organization Details LastModified Time None Recorded Payers Encounter Date Sequence Insurance Name Policy Number Policy Lyons Covered Member ID Lyons Member ID Guarantor Name 08/06/2025 1 [facility] - DOS ON OR AFTER 2022 - DUAL ELIGIBLE - [employer] OPT[employer] AND ONE CARE (MEDICARE REPLACEMENT/ADV ANTAGE - HMO) Sharon Nugent [id number] Sharon Nugent Notes Date Note Type Note Provider Name and Address Organization Details Recorded Time 08/06/2025 text/html [facility] Nurse Triage Notes (Katherine Owens): Reason For Request: Pt reporting a sore on her left leg, which she has had for a few days(longer)>[facility] Patient Reports: History of cellulitis, [...] Hypothyroidism, Gout PMH Reviewed at 08/06/2025 - : Allergies Reviewed at 08/06/2025 - :08 Comments: 75 y.o female complains of Wound [...] ..................... ..................... ..................... ..................... ..................... ..................... ............... Squad Sergeant Note From Kathleen Rubio: SC6 responds to the listed address for a 75 yof w/ a c/c of skin abrasions. Upon arrival on scene, pt yells through the door to her apartment for [facility] to enter. She is seated just inside the door in a power recliner watching TV. She is generally well-appearing and NAD is observed. She is making eye contact and speaking pleasantly w/ [facility]. She tells [facility] she was seen and tested for COVID/flu [...] her current amount of edema as baseline. [facility] obtains vital signs and pt is assessed. BP is sepzeh7sx over palp and pt is normotensive, afebrile, and not hypoxic. [facility] chooses to assess lung sounds based on [...] streaking is noted. Photos are obtained for [facility] inspection. [facility] contacts [facility] and discusses the above. [facility] feels area is not infected and pt should continue w/ the triple antibiotic and hydrocortisone cream and keep the area clean. [facility] advises pt of [facility] instructions as well as the warning signs of when to seek emergency care. Pt gives her verbal understanding. Pt is left in stable condition. [facility] is clear. Report completed by DURGA Rubio [id number]. ..................... ..................... ..................... ..................... ..................... ..................... ............... [facility] Consulted: Laura Casey ..................... ..................... ..................... ..................... ..................... ..................... ............... Disposition: Fulfilled Laura Casey MD [address] [facility],[address] [facility], [place], [address], [employer] 08/06/2025 13:32:00 OBGyn Episode No OBEpisode recorded.
--- OUTSIDE RECORDS SUMMARY | 2025-09-12 05:47 | XMS_ITS | Encounter Summary ---
Author Organization [facility] Address [address] [place] [address] Encounters * CPT with [facility] at [place] on 2025-08-05 { reasonForRequest : SOB , patientReports : , denies":[ Increased work of breathing/labored with or without fever , Unable to speak in full sentences without distress , Discoloration of skin -cyanosis , Needs to sleep sitting up, can t catch breath , Shortness of breath in setting of confusion&quo t;], chiefComplaints : Breathing Problems , pmh : Congestive Heart Failure, COPD/Asthma, Coronary Artery Disease, Hypertension, Hyperlipidemia, Urinary Tract Infections (UTI), Hypothyroidism, Gout , allergies : Lisinopril, Seroquel, Claritin, Codeine, Zoloft , otherAllergies :null, painAssessment : , vi sitOutcome : , additionalComments : 75 y.o female complains of Breathing Problems\n\nPatient calling in with shortness of breath on and off for a few weeks\nPatient does not wear supplemental o2\nBreathing improves with her inhaler\nShe started with a cough last night, voice is hoarse\nDenies chest congestion, no wheezes, no chest pain\nNo fever/chills\nNo headache or dizziness\nPatient takes Torsemide daily\nEdema to BLEs is at baseline\nShe would like to be evaluated\n\nI provided information on the mobile health provider response time and advised the patient and/or caregiver to monitor reported signs and symptoms. I discussed the warning signs of when to seek emergency care. } [facility] visit for female patient with complaint of sore throat and shortness of breath. Patient presents at home sitting in recliner. Patient reports hoarseness and cough, presenting in the last few days with some worsening shortness of breath over the last several weeks. patient reports that her ASSOCIATE FINANCIAL PLANNER recently told her she was sick with [...] to be negative for all. Consulted with [facility], Dr. Smith, who advised continuing supportive care and monitoring symptoms. Reviewed red flags for ED. Patient education provided. ORAL_MEDICATION, POC_FLU_STREP, COVID_TEST Written by Medical [facility] on 2025-08-05
--- OUTSIDE RECORDS SUMMARY | 2025-09-12 05:47 | XMS_ITS | Continuity of Care Document ---
Author Name [facility] Address [address] [place] [address] Organization Unknown Address [address] [place] [address] Medications No known medications Problems No known problems
--- NOTE | 2025-09-12 06:15 | ED.GENADULT ---
HPI - General Adult General Chief complaint: Fall Stated complaint: CONFUSION,FALL,R KNEE PAIN,CURRENT UTI,SOB Time Seen by Provider: 09/12/25 06:10 Source: patient and EMS Mode of arrival: EMS Limitations: no limitations History of Present Illness ED Provider: DR. Pelaez HPI narrative: 75-year-old PMHx HTN, hypothyroidism, UTIs female came in by ambulance for evaluation after sustained a fall, patient normally lives home by herself with a few hours daily home care visit, patient lives mostly independently had a recent admission and hospitalization for UTI with encephalopathy. Has no head injury, complaining of right knee pain. Patient do not remember how she fell, unknown head injury or LOC. Patient not taking anticoagulation. Related Data Home Medications ?Medication ?Instructions ?Recorded ?Confirmed aspirin 81 mg chewable tablet 1 tab PO DAILY 06/21/20 08/28/25 cholecalciferol (vitamin D3) 25 1 tab PO DAILY 06/21/20 08/28/25 mcg (1,000 unit) tablet (Vitamin D3) allopurinol 100 mg tablet 100 mg PO DAILY 03/26/23 08/28/25 amlodipine 10 mg tablet 10 mg PO DAILY 03/26/23 08/28/25 dapagliflozin propanediol 10 mg 10 mg PO DAILY 03/26/23 08/28/25 tablet (Farxiga) nystatin 100,000 unit/gram topical 1 appl topical BID PRN Rash 03/26/23 08/28/25 powder torsemide 20 mg tablet 40 mg PO DAILY 03/26/23 08/28/25 escitalopram oxalate 10 mg tablet 10 mg PO BEDTIME 04/14/25 08/28/25 levothyroxine 150 mcg tablet 150 mcg PO DAILY@0600 04/14/25 08/28/25 baclofen 20 mg tablet 20 mg PO BEDTIME PRN Muscle Spasm 04/22/25 08/28/25 carvedilol 3.125 mg tablet 3.125 mg PO BID 08/28/25 08/28/25 escitalopram oxalate 20 mg tablet 20 mg PO DAILY 08/28/25 08/28/25 gabapentin 600 mg tablet 600 mg PO TID anxiety 08/28/25 08/28/25 losartan 25 mg tablet 25 mg PO DAILY 08/28/25 08/28/25 Previous Rx's ?Medication ?Instructions ?Recorded bupropion HCl 300 mg 24 hr tablet, 1 tab PO DAILY #90 tabs 10/22/20 extended release amoxicillin 500 mg-potassium 1 tab PO BID 7 days #14 tabs 08/30/25 clavulanate 125 mg tablet (Augmentin) pantoprazole 40 mg tablet,delayed 40 mg PO DAILY 5 days #5 tabs 09/06/25 release (Protonix) Allergies Allergy/AdvReac Type Severity Reaction Status Date / Time lisinopril (LISINOPRIL) Allergy Intermediate RASH Verified 09/12/25 04:52 quetiapine (From SEROQUEL) Allergy Intermediate RASH Verified 09/12/25 04:52 sertraline (From ZOLOFT) Allergy Intermediate RASH, Verified 09/12/25 04:52 DIZZINESS loratadine (From CLARITIN) Allergy Mild UNKNOWN Verified 09/12/25 04:52 methimazole (From TAPAZOLE) Allergy Mild RASH Verified 09/12/25 04:52 potassium chloride Allergy Unknown Unknown Verified 09/12/25 04:52 propranolol (PROPRANOLOL) AdvReac Severe anergy Verified 09/12/25 04:52 Review of Systems Review of Systems: All other systems are reviewed and are negative Constitutional: Reports as per HPI and Reports no additional constitutional complaints Eyes: Reports as per HPI and Reports no additional eye complaints Reports system reviewed and no additional complaints, except as documented Cardiovascular: Reports as per HPI and Reports no additional cardiovascular complaints Respiratory: Reports as per HPI and Reports no additional respiratory complaints Gastrointestinal: Reports as per HPI and Reports no additional gastrointestinal complaints Genitourinary: Reports no additional female genitourinary complaints Musculoskeletal: Reports no additional musculoskeletal complaints Skin/Breast: Reports system reviewed and no additional complaints, except as docu Psychiatric: Reports no additional psychiatric complaints Endocrine: Reports no additional endocrine complaints Hematologic/Lymphatic: Reports no additional hematologic/lymphatic complaints Allergic/Immunologic: Reports no additional allergic/immunologic complaints Reports system reviewed and no additional complaints, except as documented and Reports Abnormal speech present [facility] Past Medical History Medical History PTSD (post-traumatic stress disorder) Recurrent major depression-severe Family History Family History Other Depression Social History Social History Household Members: None Household Members Other:: Lives with her cat Housing: Apartment Housing Other:: usp housing Are you a primary lawn care specialist to a significant other at home: No Do you presently have visiting nurse or other home services: Yes ([facility] and 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) Alcohol intake: never Patient Tobacco Use Status: Never used Tobacco Smoked in Last 30 Days: No Use of substances other than those prescribed or required for medical reasons: No Advance Directives: Yes Advance Directives on File: Yes Advance Directives Date on File: 03/26/23 Do you have a plan to hurt others: No Plan service: No Physical Exam ED Vital Signs: Vital Signs - 24 hr 09/12/25 04:49 09/12/25 08:22 Temperature 98.3 F 98.1 F Pulse Rate 112 H 90 Respiratory Rate 22 H 16 Blood Pressure 133/68 147/78 H Pulse Oximetry 95 96 Oxygen Delivery Method Room Air Room Air BMI result Body Mass Index 37.9 Vital signs have been reviewed and appear to be correct. Blood pressure elevated. Heart rate elevated, Respiratory rate normal. Temperature normal. Oxygen saturation normal. Appearance: Alert. Oriented X3. No acute distress. Head: Normal external exam. Normocephalic. Atraumatic. No Knox signs noted. No raccoon eyes noted Eyes: PERRLA. EOMI. Conjunctiva and sclera normal. Eyelids normal. ENT: TM's Normal. Pharynx normal. Uvula midline. Moist mucous membranes. No trismus noted. No drooling noted. No muffled voice noted. Neck: Normal inspection. Neck supple. FROM. No adenopathy. Thyroid Normal. No meningeal signs. No neck mass noted. CVS: Normal heart rate and rhythm. Heart sound normal. No murmurs noted. Pulses normal throughout. Respiratory: No respiratory distress. Painless inspiration. Breath sounds normal. No wheezes/rales/rhonchi noted. Chest nontender. No accessory muscle usage noted or decreased air movement noted. Abdomen: Soft and nontender. Bowel sounds normal in all 4 quadrants. No distention noted. No organomegaly noted. No visible injury noted. Back: No CVA tenderness. Full range of motion noted. Skin: Skin warm and dry. Normal skin color. Normal skin turgor. No rashes/lesions/lacerations noted. Extremities: No lower extremity edema. Extremities exhibit normal range of motion. Extremities nontender. Neuro: Mental status: Normal attention, orientation, memory, and affect. Cranial nerves: Pupils are equal, round and reactive to light, EOMI, visual song are fall, face is symmetric, facial sensations are normal. Motor examination normal muscle tone, strength to 4 extremities. DTR are +2, planter's are flexor. Sensory exam; normal coordination, no ataxia, gait stable. Cerebellar exam: [id number] and [id number] is normal. Extrapyramidal system: No tremors, no rigidity with normal facial expressions. Pronator drift not present Course Reevaluation(s) Reevaluation #1: patient is AAO x4, able to ambulate in the emergency department with a walker and assistance as she normally does at home, patient is still on antibiotic for UTI from last week, no urinary symptoms, no headache, no neurological symptoms, labs are unremarkable except for residual UTI on the UA patient was instructed to drink plenty of fluids and finish the course of antibiotic. Patient was offered to go to a rehab for physical therapy and patient declined , patient requesting to be discharged to home. attempt to ambulate the patient with a walker and patient fell to be unsteady to be discharged to home Complete neuro exam is unremarkable without confusion or disorientation. will start physician observation, physical therapy evaluation and case management patient is a full code. Time: 09:49 Medications Administered Discontinued Medications Generic Name Dose Route Start Last Admin Trade Name Freq PRN Reason Stop Dose Admin Ceftriaxone Sodium 1 gm/ 50 mls @ 100 mls/hr 09/12/25 08:40 09/12/25 09:26 Sodium Chloride IV 09/12/25 09:09 Infused ONCE ONE Infusion Medical Decision Making Differential Diagnosis Differential Diagnoses: The differential diagnosis associated with the presentation includes ( Intracranial injury, cervical spine injury, chest injury, abdominal injury, back injury, extremity injury, UTI, pneumonia, right knee fracture.) Admission/Observation Consideration of admission/observation: Escalation of care including admission/observation considered Lab Data MDM Lab Attestation statement: I reviewed the patient's lab results. 09/12/25 05:01 09/12/25 05:01 Labs: Lab Results 09/12/25 09/12/25 09/12/25 Range/Units 04:57 05:01 05:23 WBC 17.3 H (4.8-10.8) X10*3/uL RBC 5.17 (4.20-5.50) X10*6/uL Hgb 13.5 (12.0-16.0) g/dl Hct 42.8 (37.0-47.0) % MCV 82.8 (80.0-98.0) fL MCH 26.1 L (27.0-33.0) pg MCHC 31.5 (31.0-35.0) g/dl RDW 15.3 (11.0-16.0) % Plt Count 272 D (160-400) X10*3/uL MPV 10.6 (9.4-12.3) fL Immature Gran % (Auto) 0.5 H (0.0-0.4) % Neut % (Auto) 85.4 H (45-73) % Lymph % (Auto) 6.9 L (20-40) % Kerr % (Auto) 6.1 (2-11) % Eos % (Auto) 0.8 (0-4) % Baso % (Auto) 0.3 (0-2) % Lymph # (Auto) 1.2 (1.2-4.9) X10*3/uL Kerr # (Auto) 1.1 (0.1-1.2) X10*3/uL Eos # (Auto) 0.1 (0.0-0.4) X10*3/uL Baso # (Auto) 0.1 (0.0-0.2) X10*3/uL Abs Immat Gran (auto) 0.09 H (0.00-0.03) X10*3/uL Absolute Neuts (auto) 14.8 H (2.0-8.3) x10*3/uL Absolute Nucleated RBC 0.000 (0.0-0.012) X10*3/uL Nucleated RBC % (auto) 0.0 (0.0-0.2) /100WBC Sodium 145 (135-145) mmol/L Potassium 3.7 (3.3-5.1) mmol/L Chloride 105 (96-108) mmol/L Carbon Dioxide 25 (22-29) mmol/L Anion Gap 19 (12-20) BUN 35 H (9-16) mg/dL Creatinine 1.61 H (0.5-1.4) mg/dL Estim Creat Clear Calc 32.7 Estimated GFR 31 Fasting Glucose 127 H (60-99) mg/dL Calcium 10.6 H (8.4-10.2) mg/dL Total Bilirubin 0.5 (0.0-1.0) mg/dL AST 34 H (5-31) U/L ALT 11 (0-31) U/L Alkaline Phosphatase 71 (39-117) U/L Total Protein 7.0 (6.5-8.0) g/dL Albumin 4.3 (3.5-5.0) g/dL Urine Color Yellow Urine Appearance Clear Urine pH 5.0 (5.0-9.0) Ur Specific Mckean 1.015 (1.005-1.025) Urine Protein Negative (Neg-Trace) mg/dL Urine Glucose (UA) 250 H (Negative) mg/dL Urine Ketones Negative (Negative) mg/dL Urine Blood Negative (Negative) Urine Nitrite Negative (Negative) Ur Leukocyte Esterase Moderate (2+) H (Negative) Urine RBC 0-2 (0-2) /HPF Urine WBC 11-20 H (0-5) /HPF Ur Squamous Epith Cells 3-5 (0-2) /HPF Urine Bacteria Trace (None Seen) Hyaline Casts 6-10 (0-2) /LPF Influenza Type A (PCR) NEGATIVE (Negative) Influenza Type B (PCR) NEGATIVE (Negative) RSV RNA Qual (PCR) NEGATIVE (Negative) SARS-CoV-2 RNA (RT-PCR) NEGATIVE (Negative) Independent Interpretation I performed an independent interpretation of an: Plain X-Ray ( Chest: No acute intrathoracic pathology. Right knee x-ray:Prepatellar soft tissue swelling. Moderate joint effusion. Severe tricompartmental osteoarthritis. ) and CT Scan ( Head: No acute intracranial pathology.) Radiology Impression Discussion of test interpretation with radiology: I have reviewed the radiologist's reading. Discharge Plan Discharge Clinical Impression: Accident due to mechanical fall without injury, Contusion of right knee Instructions: Fall Prevention (ED) Prescriptions: No Action aspirin 81 mg tablet,chewable 1 tab PO DAILY cholecalciferol (vitamin D3) [Vitamin D3] 25 mcg (1,000 unit) tablet 1 tab PO DAILY bupropion HCl 300 mg tablet extended release 24 hr 1 tab PO DAILY Qty: 90 0RF torsemide 20 mg tablet 40 mg PO DAILY allopurinol 100 mg tablet 100 mg PO DAILY amlodipine 10 mg tablet 10 mg PO DAILY nystatin 100,000 unit/gram powder 1 appl topical BID PRN (Reason: Rash) Rx Instructions: apply to affected areas under breast or leg folds dapagliflozin propanediol [Farxiga] 10 mg tablet 10 mg PO DAILY levothyroxine 150 mcg tablet 150 mcg PO DAILY@0600 escitalopram oxalate 10 mg tablet 10 mg PO BEDTIME baclofen 20 mg tablet 20 mg PO BEDTIME PRN (Reason: Muscle Spasm) gabapentin 600 mg tablet 600 mg PO TID escitalopram oxalate 20 mg tablet 20 mg PO DAILY carvedilol 3.125 mg Tablet 3.125 mg PO BID Rx Instructions: must administer with a meal/food losartan 25 mg Tablet 25 mg PO DAILY amoxicillin-pot clavulanate [Augmentin] 500-125 mg tablet 1 tab PO BID 7 Days Qty: 14 0RF pantoprazole [Protonix] 40 mg tablet,delayed release (DR/EC) 40 mg PO DAILY 5 Days Qty: 5 0RF Print Language: Moldovan
[2025-09-12 06:48] LABS: UACC Culture Trigger YES
--- NOTE | 2025-09-12 10:01 | MHC.EDTECH ---
0950 Ambulated patient two assist with walker. The patient was very slow and having difficulty rising to a standing position. The patient ambulated about 500 feet with one episode of loss of balance. Returned patient to bed. She reports being shaky, right knee pain and concerned for safety.
--- NOTE | 2025-09-12 11:36 | MHC.CM.ED ---
Received case management consult from Dr Pelaez. Patient came to the ER due to a fall. Work up essentially negative. Physical therapy eval completed. Short term rehab is recommended. Met with patient in regards to d/c planning. Patient is active with [facility] and has a home health aide Thursday through from 9a-1pm. Patient requesting to go to [place]. T/W explained [facility] would not authorize acute rehab unless after a CVA. Patient verbalizes understanding. Patient has never been to [facility]. Agreeable for referral to broadcasted locally and bed offers being discussed. Copy of HCP verified to be on file. PCP verified as Dr Holcomb. Continue to monitor for d/c needs.
--- NOTE | 2025-09-12 13:26 | MHC.CM.ED ---
[facility] [place], [facility], and [facility] are able to offer a bed. [facility], [facility], [facility] and [facility] are still reviewing. Bed options discussed with patient. Patient accepts bed at [facility]. [facility] Eliane made aware and asked to obtain ins auth. Continue to monitor for d/c needs.
--- NOTE | 2025-09-12 16:32 | PHA.MEDREC ---
Addendum entered by Manoj Howard [facility] 09/12/25 17:51: Reviewed by [facility] Addendum entered by Yoon Mccrary 09/12/25 17:49: Patient taking sulfamethoxazole-trimethoprim 800-160mg tabs for a 5 day regimen and started that on Monday 09/10. Original Note: Pharmacy Consult ? Medication Reconciliation Pharmacy has completed the medication reconciliation. Got list from [facility] and spoke with pt and she verified her medications. Pt finished her Protonix yesterday and Augemtin last week.
--- NOTE | 2025-09-12 16:56 | MHC.CM.ED ---
Auth obtained. BLS booked for 5pm. Estuardo. Med nec to private secretary. Pt, RN and Provider aware.
--- NOTE | 2025-09-12 17:27 | PC.NURSE ---
Pt had not voided in >6hrs. Bladder scan showed >500ml. Provider notified. Pt attempted to urinate using bedside commode. Bladder scan post void >500ml. Straight cath was performed. Provider at bedside. discharge cancelled. Plan to get CT and admit
[2025-09-12] MEDS: metroNIDAZOLE/NS 500 MG/100 ML PIGGYBACK 100 MG IV (19:41)
--- NOTE | 2025-09-12 19:54 | PM.IMHP ---
History of Present Illness Date of Service: 09/12/25 Attending physician on admission: Siomara Edwards Chief Complaint: s/p fall with pain R knee Patient is a 75-year-old female with past medical history hypertension, hyperlipidemia, osteoarthritis, chronic lymphedema, essential tremor, hypothyroidism, diverticulosis, PTSD, MDD, asthma was brought in by ambulance from her home where she lives alone in [facility] [place] after unwitnessed fall today. Patient denies any hit to the head and is not on any blood thinners. Patient denies any LOC. Patient does have emergency device and she pressed the button to obtain help. Patient is not certain how long she was on the floor for but she did not think it was for very long. Pt appears to be a poor historian overall. Per ED record, patient was confused but currently patient is alert and orientated x3. Patient does not recall earlier events specifically and states she was not confused earlier. Patient was recently admitted on 08/28/2025 for altered mental status. Patient was found to be negative for hypercapnia and had no lactic acidosis. Chest x-ray at that time was negative for pneumonia. UA was positive for leukocyte esterase only. And CT had been negative for intracranial abnormality. Ammonia also normal. Patient was discharged on 08/30/2025 with diagnosis of uncomplicated UTI, cellulitis of the lower extremities and suspicion for polypharmacy. Patient was also thought to be dehydrated and received fluid resuscitation and continue to eat and drink well during this past admission. Patient was not transferred to short-term rehab. Workup today in the emergency department included chest x-ray negative for any acute findings. Patient also had a knee x-ray which notes prepatellar soft tissue swelling with moderate joint effusion. Patient also has severe tricompartmental osteoarthritis. Negative for dislocation or fracture. Head CT negative for any acute intracranial abnormality. Abdomen and pelvis CT notes acute uncomplicated diverticulitis and no evidence of urinary tract stone or obstruction. Patient does have a leukocytosis of 17.3 and a neutrophilia but no bandemia. There is no evidence of anemia. Electrolytes stable but patient has a evidence of LUX with a creatinine 1.61 and a creatinine clearance of 32.7 and GFR of 31. Lactic acid 1.6. UA low threshold for UTI with LE, WBCs and trace bacteria. Patient is started on ceftriaxone and Flagyl for the acute diverticulitis in the ED. Patient is also receiving IV fluids. Patient will now be on vancomycin for evidence of cellulitis with right knee effusion that is currently warm to the touch. Patient accepted for admission for LUX, right knee effusion status post fall, acute diverticulitis, and essential tremor. Review of Systems Review of Systems: Patient currently denies any chest pain, shortness of breath at rest but does note shortness of breath with exertion. Patient has been using a walker at home. Patient does not recall previous admission for alteration in mental status from 08/28 to 08/30/2025. Patient has an essential tremor especially in the left upper extremity and both lower extremities. Patient states she saw neurologist in the past with no follow-up because they did not call her back. There is concern about some [id number] cognitive decline but currently patient is alert and orientated x3. Patient denies any abdominal pain, constipation or diarrhea and is not having any nausea or vomiting. Yes all other systems are reviewed and are negative [facility] Medical History (Updated 09/12/25 @ 21:04 [facility] HLD (hyperlipidemia) Lymphedema Asthma Anemia Hypothyroid HTN (hypertension) PTSD (post-traumatic stress disorder) Recurrent major depression-severe Functional capacity: uses cane/walker Patient : No Family History Other Depression Social History Household Members: None Household Members Other:: Lives with her cat Housing: Apartment Housing Other:: [facility] housing Are you a primary childcare worker to a significant other at home: No Do you presently have visiting nurse or other home services: Yes ([facility] and care center manager) Alcohol intake: never Patient Tobacco Use Status: Never used Tobacco Advance Directives Date on File: 03/26/23 service: No Meds Allergies Allergy/AdvReac Type Severity Reaction Status Date / Time lisinopril (LISINOPRIL) Allergy Intermediate RASH Verified 09/12/25 04:52 quetiapine (From SEROQUEL) Allergy Intermediate RASH Verified 09/12/25 04:52 sertraline (From ZOLOFT) Allergy Intermediate RASH, Verified 09/12/25 04:52 DIZZINESS loratadine (From CLARITIN) Allergy Mild UNKNOWN Verified 09/12/25 04:52 methimazole (From TAPAZOLE) Allergy Mild RASH Verified 09/12/25 04:52 potassium chloride Allergy Unknown Unknown Verified 09/12/25 04:52 propranolol (PROPRANOLOL) AdvReac Severe anergy Verified 09/12/25 04:52 Active Medications: Current Medications Acetaminophen (Acetaminophen 325 Mg Tablet) 650 mg PO Q6H PRN PRN Reason: Pain, Mild 1-3,fever,headache Albuterol/Ipratropium (Albuterol/Iprat 2.5/0.5mg 3 Ml Ampul.Neb) 3 ml INHALE Q4H PRN PRN Reason: Shortness of Breath/Wheezing Calcium Carbonate (Calcium Carbonate 750 Mg Tab.Chew) 750 mg PO Q4H PRN PRN Reason: Heartburn Enoxaparin Sodium (Enoxaparin Sodium 30 Mg/0.3 Ml Syringe) 30 mg SUBCUT Q24H LILLIANA Hydromorphone HCl (Hydromorphone Hcl 1 Mg/Ml Syringe) 0.5 mg IVPUSH Q4H PRN; Protocol PRN Reason: Pain, Severe (Pain Scale 7-10) Metronidazole (Flagyl) 500 mg in 100 mls @ 100 mls/hr IV ONCE ONE Stop: 09/12/25 20:20 Last Admin: 09/12/25 19:41 Dose: 100 mls/hr Lactated Ringer's (Lr) 1,000 mls @ 100 mls/hr IVCONT .Q10H LILLIANA Metronidazole (Flagyl) 500 mg in 100 mls @ 100 mls/hr IV Q8H LILLIANA Ceftriaxone Sodium 1 gm/ (Sodium Chloride) 50 mls @ 100 mls/hr IV Q12H LILLIANA Dextrose/Sodium Chloride (D51/2ns) 1,000 mls @ 100 mls/hr IVCONT .Q10H LILLIANA Magnesium Hydroxide (Milk Of Magnesia 30 Ml Oral.Susp) 30 ml PO DAILY PRN PRN Reason: Constipation Melatonin (Melatonin 3 Mg Tablet) 6 mg PO BEDTIME PRN PRN Reason: Insomnia Ondansetron HCl (Ondansetron Hcl 4 Mg/2 Ml Vial) 4 mg IVPUSH Q8H PRN PRN Reason: Nausea and Vomiting Polyethylene Glycol (Polyethylene Glycol 3350 17 Gm Powd.Pack) 17 gm PO DAILY PRN PRN Reason: Constipation Senna (Sennosides 8.6 Mg Tablet) 17.2 mg PO BEDTIME LILLIANA Sodium Chloride (0.9 % Sodium Chloride Flush 3 Ml Syringe) 3 ml IVFLUSH QSHIFT [facility] Home Medications ?Medication ?Instructions ?Recorded ?Confirmed ?Last Taken ?Type aspirin 81 mg chewable tablet 1 tab PO DAILY 06/21/20 09/12/25 09/11/25 History cholecalciferol (vitamin D3) 25 1 tab PO DAILY 06/21/20 09/12/25 09/11/25 History mcg (1,000 unit) tablet (Vitamin D3) allopurinol 100 mg tablet 100 mg PO DAILY 03/26/23 09/12/25 09/11/25 History amlodipine 10 mg tablet 10 mg PO DAILY 03/26/23 09/12/25 09/11/25 History dapagliflozin propanediol 10 mg 10 mg PO DAILY 03/26/23 09/12/25 09/11/25 History tablet (Farxiga) nystatin 100,000 unit/gram topical 1 appl topical BID PRN Rash 03/26/23 09/12/25 Unknown History powder torsemide 20 mg tablet 40 mg PO DAILY 03/26/23 09/12/25 09/11/25 History escitalopram oxalate 10 mg tablet 10 mg PO BEDTIME 04/14/25 09/12/25 09/11/25 History levothyroxine 150 mcg tablet 150 mcg PO DAILY@0600 04/14/25 09/12/25 09/11/25 History baclofen 20 mg tablet 20 mg PO BEDTIME PRN Muscle Spasm 04/22/25 09/12/25 Unknown History carvedilol 3.125 mg tablet 3.125 mg PO BID 08/28/25 09/12/25 09/11/25 History escitalopram oxalate 20 mg tablet 20 mg PO DAILY 08/28/25 09/12/25 09/11/25 History gabapentin 600 mg tablet 600 mg PO TID anxiety 08/28/25 09/12/25 09/11/25 History losartan 25 mg tablet 25 mg PO DAILY 08/28/25 09/12/25 09/11/25 History budesonide-formoterol HFA 160 2 puff inhalation BID 09/12/25 09/12/25 09/11/25 History mcg-4.5 mcg/actuation aerosol inhaler ropinirole 0.5 mg tablet 0.5 mg PO BEDTIME PRN restless legs 09/12/25 09/12/25 Unknown History sulfamethoxazole 800 1 tab PO Q12H 09/12/25 09/12/25 09/11/25 History mg-trimethoprim 160 mg tablet Physical Exam Vital Signs and Narrative: Vital Signs: Last Vital Signs Temp 98.7 F 09/12/25 17:52 Pulse 90 09/12/25 17:52 Resp 16 09/12/25 17:52 BP 132/78 09/12/25 17:52 Pulse Ox 96 09/12/25 17:52 O2 Del Method Room Air 09/12/25 17:52 BMI result Body Mass Index 37.9 Alert and orientated X3, poor historian Neuro: CN II-X11 intact, essential tremor left hand and bilateral lower extremities, glasses on visual acuity intact EYES: PERRLA, EOM intact, sclerae nonicteric, conjunctiva pink ENT: hearing intact, no issues with swallowing, uvula midline, lips moist, nares patent no epistaxis Cardiac: S1 S2 RRR, no murmur, no JVD, moderate edema in bilateral Lower extremities Pulmonary: Diminished bilaterally Abdominal: BS active in all 4 quadrants, no guarding, tenderness, rebounding, obese MSK: strength 3/5 upper and lower extremities : no CVA tenderness no bladder distension Extremities: Monitor edema in lower extremities, PT and DP pulses palpable +2, redness and warmth noted in both lower extremities, right knee grossly swollen, bruised with a healed over scab, warm to the touch with poor range of motion Psych: mood stable, judgement and insight poor Skin: Noted contusion right knee, unable to observe the backside but no report of open wounds in that area Results Labs 09/12/25 05:01 09/12/25 05:01 Labs: Laboratory Results - last 24 hr 09/12/25 09/12/25 09/12/25 04:57 05:01 05:23 MCV 82.8 MCH 26.1 L MCHC 31.5 RDW 15.3 Plt Count 272 D MPV 10.6 Immature Gran % (Auto) 0.5 H Neut % (Auto) 85.4 H Lymph % (Auto) 6.9 L [place] % (Auto) 6.1 Eos % (Auto) 0.8 Baso % (Auto) 0.3 Lymph # (Auto) 1.2 [place] # (Auto) 1.1 Eos # (Auto) 0.1 Baso # (Auto) 0.1 Abs Immat Gran (auto) 0.09 H Absolute Neuts (auto) 14.8 H Absolute Nucleated RBC 0.000 Nucleated RBC % (auto) 0.0 Anion Gap 19 Estim Creat Clear Calc 32.7 Estimated GFR 31 Fasting Glucose 127 H Lactic Acid Calcium 10.6 H Total Bilirubin 0.5 AST 34 H ALT 11 Alkaline Phosphatase 71 Total Protein 7.0 Albumin 4.3 Urine Color Yellow Urine Appearance Clear Urine pH 5.0 Ur Specific [place] 1.015 Urine Protein Negative Urine Glucose (UA) 250 H Urine Ketones Negative Urine Blood Negative Urine Nitrite Negative Ur Leukocyte Esterase Moderate (2+) H Urine RBC 0-2 Urine WBC 11-20 H Ur Squamous Epith Cells 3-5 Urine Bacteria Trace Hyaline Casts 6-10 Influenza Type A (PCR) NEGATIVE Influenza Type B (PCR) NEGATIVE RSV RNA Qual (PCR) NEGATIVE SARS-CoV-2 RNA (RT-PCR) NEGATIVE 09/12/25 17:50 MCV MCH MCHC RDW Plt Count MPV Immature Gran % (Auto) Neut % (Auto) Lymph % (Auto) [place] % (Auto) Eos % (Auto) Baso % (Auto) Lymph # (Auto) [place] # (Auto) Eos # (Auto) Baso # (Auto) Abs Immat Gran (auto) Absolute Neuts (auto) Absolute Nucleated RBC Nucleated RBC % (auto) Anion Gap Estim Creat Clear Calc Estimated GFR Fasting Glucose Lactic Acid 1.6 Calcium Total Bilirubin AST ALT Alkaline Phosphatase Total Protein Albumin Urine Color Urine Appearance Urine pH Ur Specific [place] Urine Protein Urine Glucose (UA) Urine Ketones Urine Blood Urine Nitrite Ur Leukocyte Esterase Urine RBC Urine WBC Ur Squamous Epith Cells Urine Bacteria Hyaline Casts Influenza Type A (PCR) Influenza Type B (PCR) RSV RNA Qual (PCR) SARS-CoV-2 RNA (RT-PCR) ECG Attestation: I personally reviewed and interpreted this ECG as follows: (Sinus tachycardia with QTC 447 no ischemic changes) Prior ECG tracings: available for review Imaging Radiologist's Impressions: Impressions Chest X-Ray 09/12/25 05:39 IMPRESSION: Low lung volumes. No acute cardiopulmonary abnormality. Electronically signed by: Giles Caballero MD 09/12/2025 08:04 AM EST RP Knee X-Ray 09/12/25 05:47 IMPRESSION: Prepatellar soft tissue swelling. Moderate joint effusion. Severe tricompartmental osteoarthritis. Electronically signed by: Giles Caballero MD 09/12/2025 08:07 AM EST RP Head CT 09/12/25 08:27 IMPRESSION: No acute intracranial abnormality. Electronically signed by: Giles Caballero MD 09/12/2025 08:[address] of the abdomen and pelvis Impression: Acute uncomplicated diverticulitis. No urinary tract stone or obstruction. Assessment and Plan (1) Acute diverticulitis: Status: Acute (2) LUX (acute kidney injury): Status: Acute (3) Effusion of knee joint right: Status: Acute (4) Fall: Qualifiers: Encounter type: initial encounter Qualified Code(s): W19.XXXA - Unspecified fall, initial encounter Status: Acute (5) Essential tremor: Status: Acute Plan Patient is a 75-year-old female with past medical history hypertension, Gout, RLS, hyperlipidemia, osteoarthritis, chronic lymphedema, essential tremor, hypothyroidism, diverticulosis, PTSD, MDD, asthma was brought in by ambulance from her home where she lives alone in [facility] [place] after unwitnessed fall today. Patient denies any hit to the head and is not on blood thinners. Patient denies any LOC. Patient does have emergency device and she pressed the button to achieve help. Patient being admitted for multiple findings including acute diverticulitis, LUX, effusion of the right knee joint status post unwitnessed fall, essential tremor. Acute diverticulitis Patient is started on ceftriaxone and Flagyl, these antibiotics will continue Patient currently symptom-free Pain management as needed NPO, can transition to clears as tolerated then low residual diet LUX IV hydration continue Hold torsemide and losartan Avoid hypotension and nephrotoxic medication If renal function does not improve consult Nephrology UTI Low threshold for UTI, positve for LE, WBCs, yong bacteria Follow urine culture On ceftriaxone Effusion of R knee joint status post unwitnessed fall/ No LOC reported Consult for Orthopedics placed, patient may likely need intervention, holding Lovenox Patient is started on vancomycin along with ceftriaxone Knee x-ray is negative for fracture or dislocation Hold DVT prophylaxis PT eval CT head negative for acute findings Hypercalcemia Albumin 4.3 Recheck in AM after hydration Will check Phosphoous and Vitamin D Chronic Lymphedema Will need to hold torsemide due to renal function Pt does not receive treatment in the community or wear wraps at home May be contributing to mobility issues Essential tremor/ HX RLS Neurology consulted Patient mukesh historian, states she was seen by Neurology in the past but got no call for follow-up or return Concerned this may be contributing to patient's falls and could be undiagnosed Parkinson's versus some other neurological disorder Noting patient is already on ropinirole, the amount of tremor and movement in lower extremities concerning PT/OT Recent issues with altered mental status (admission 08/28 - 08/30/25 for AMS) Confusion noted by EMS on arrival earlier today, patient currently at baseline UA is borderline positive for UTI patient is on ceftriaxone OT consulted for Barnes/ MMSE Case management/drug abuse social worker consulted as patient lives alone. We will need to assess for short-term rehab versus in-home support services for discharge plan most likely. Hypertension BP currenlty stable Low sodium diet Pt normally on amlodipine, Coreg and losartan: currently on hold Hyperlipidemia Pt not currently on statin Cardiac diet Hypothyroidism Continue levothyroxine TSH has been WNL Obesity Nutritional consult ordered PTSD/ MDD Qtc stable MED REC pending, continue home meds once completed DVT prophylaxis: on hold due to knee effusion MED REC Completed FULL CODE Patient will require at least a 2 midnight stay for IV antibiotics, IV hydration, expert consultation with Neurology for right knee effusion and case management review regarding safety measures. Pt is determined to remain at home and live alone. Insight into recent events including previous admission for altered mental status is poor. This hand sign writer will attempt to reach out to family if available and patient may benefit from a family meeting/case management involvement to provide further support if indicated. Patient may also benefit from short-term rehab. Quality Stroke Does the patient have a stroke diagnosis?: No Reason for No Anti-thrombotic by Day Two: Contraindicated (knee effusion ) VTE Prior VTE?: No VTE Risk Level:: Medical - moderate - high VTE Device Contraindication: N/A - Device Ordered VTE Drug Contraindication: N/A - Med Ordered
[2025-09-12] MEDS: Dextrose 5 % and 0.45 % NaCl 1,000 ML 100 ML IVCONT (21:14)
[2025-09-12 21:34] LABS: Magnesium 1.9 mg/dL (1.6-2.6)
--- NOTE | 2025-09-12 21:35 | PC.NURSE ---
Assumed care of pt @1900, pt denies any pain or complaints at this time medicated per NOV. 22g placed in left hand.
[2025-09-12 21:41] LABS: NT Pro B Type Natriuretic Pept 358.9 pg/mL (<300)
[2025-09-13] VITALS: BP 124/60; PULSE 82; RESP 18; TEMP 37.1; O2SAT 95
--- NOTE | 2025-09-13 02:37 | PC.NURSE ---
This RN assumed care of patient @02:00. Patient stated she had not voided in a couple hours so bladder scanned patient for 366mL. Attempted to get patient OOB to commode to avoid having to straight cath again and she was able to void 300mL. When patient got back in bed she was bladder scanned again for a PVR of 312mL. This was the first time she had moved around in a awhile so assuming the first scan was not accurate. Will continue to monitor and keep attempting to get patient void on her own.
[2025-09-13] MEDS: metroNIDAZOLE/NS 500 MG/100 ML PIGGYBACK 100 MG IV ×3 (04:08→19:02)
[2025-09-13 06:00] VITALS: BMI 43.9
[2025-09-13 06:07] LABS: MANUAL DIFF FLAG NO
[2025-09-13 06:10] LABS: Hematocrit 35.0 % (37.0-47.0); Hemoglobin 10.8 g/dl (12.0-16.0); Imm Gran Abs Auto 0.04 X10*3/uL (0.00-0.03); Imm Gran Pct Auto 0.4 % (0.0-0.4); Lymphocytes Absolute Auto 1.5 X10*3/uL (1.2-4.9); Mean Corpuscular HGB Conc 30.9 g/dl (31.0-35.0); Mean Corpuscular Hemoglobin 26.1 pg (27.0-33.0); Mean Corpuscular Volume 84.5 fL (80.0-98.0); NRBC Abs Auto 0.000 X10*3/uL (0.0-0.012); NRBC Pct Auto 0.0 /100WBC (0.0-0.2); Platelet Count 198 X10*3/uL (160-400); Red Blood Count 4.14 X10*6/uL (4.20-5.50); White Blood Count 9.6 X10*3/uL (4.8-10.8)
[2025-09-13 06:29] LABS: Alanine Aminotransferase 8 U/L (0-31); Albumin Level 3.2 g/dL (3.5-5.0); Alkaline Phosphatase 53 U/L (39-117); Anion Gap 11 (12-20); Aspartate Amino Transferase 23 U/L (5-31); Blood Urea Nitrogen 13 mg/dL (9-16); Calcium 9.3 mg/dL (8.4-10.2); Carbon Dioxide 25 mmol/L (22-29); Chloride 110 mmol/L (96-108); Creatinine Clr Calc Pharmacy 73.2; Estimated Glomerular Filt Rate > 60; Potassium 2.8 mmol/L (3.3-5.1); Sodium 143 mmol/L (135-145); Total Protein 5.2 g/dL (6.5-8.0); Uric Acid 7.4 mg/dL (2.4-5.7)
[2025-09-13] MEDS: Dextrose 5 % and 0.45 % NaCl 1,000 ML 100 ML IVCONT ×3 (07:17→20:10)
[2025-09-13 07:50] VITALS: BP 123/60; PULSE 75; RESP 16; TEMP 36.4; O2SAT 93
--- NOTE | 2025-09-13 08:07 | PM.CNOR ---
History of Present Illness HPI Consult date: 09/13/25 Chief complaint: acute diverticulitis, acute encephalopthy Narrative: Patient is a 75-year-old female admitted to the hospital yesterday after a fall Patient is primarily admitted for acute kidney injury and diverticulitis, however she was reporting significant right knee pain after her fall X-rays taken in the emergency department reveal no fracture or acute bony abnormality, however they do reveal [id number] effusion of the right knee Patient states that today, her knee is still painful, but it has improved slightly Patient reports that she is able to ambulate with difficulty on that right knee Reports a significant bruise on the anterior aspect of the right knee Patient does report that her left knee is also very sore Denies numbness or tingling in the right lower extremity No other acute complaints or concerns at this time PMFSH Past Medical History Medical History HLD (hyperlipidemia) Lymphedema Asthma Anemia Hypothyroid HTN (hypertension) PTSD (post-traumatic stress disorder) Recurrent major depression-severe Family History Family History Other Depression Social History Social History Household Members: None Household Members Other:: Lives with her cat Housing: Apartment Housing Other:: [facility] housing Are you a primary critical care unit manager to a significant other at home: No Do you presently have visiting nurse or other home services: Yes (SOCIAL SERVICE COORDINATOR) Alcohol intake: never Patient Tobacco Use Status: Never used Tobacco Smoked in Last 30 Days: No Use of substances other than those prescribed or required for medical reasons: No Currently Displaying Signs/Symptoms of Drug Intoxication Withdrawal: No Have you been hit, kicked, punched, or otherwise hurt by someone within the past year? If so, by whom?: No Do you feel safe in your current relationship?: No Current Relationship Is there a partner from a previous relationship who is making you feel unsafe now?: No Are you made to feel afraid or neglected: No Advance Directives: Yes Advance Directives on File: Yes Advance Directives Date on File: 03/26/23 Do you have a plan to hurt others: No Plan Recently lost weight without trying: No Eating poorly because of decreased appetite: No Nutrition Risks: No Nutritional Risk Patient : No service: No Meds Allergies Allergy/AdvReac Type Severity Reaction Status Date / Time lisinopril (LISINOPRIL) Allergy Intermediate RASH Verified 09/12/25 04:52 quetiapine (From SEROQUEL) Allergy Intermediate RASH Verified 09/12/25 04:52 sertraline (From ZOLOFT) Allergy Intermediate RASH, Verified 09/12/25 04:52 DIZZINESS loratadine (From CLARITIN) Allergy Mild UNKNOWN Verified 09/12/25 04:52 methimazole (From TAPAZOLE) Allergy Mild RASH Verified 09/12/25 04:52 potassium chloride Allergy Unknown Unknown Verified 09/12/25 04:52 propranolol (PROPRANOLOL) AdvReac Severe anergy Verified 09/12/25 04:52 Active Medications: Current Medications Acetaminophen (Acetaminophen 325 Mg Tablet) 650 mg PO Q6H PRN PRN Reason: Pain, Mild 1-3,fever,headache Last Admin: 09/13/25 03:14 Dose: 650 mg Albuterol/Ipratropium (Albuterol/Iprat 2.5/0.5mg 3 Ml Ampul.Neb) 3 ml INHALE Q4H PRN PRN Reason: Shortness of Breath/Wheezing Calcium Carbonate (Calcium Carbonate 750 Mg Tab.Chew) 750 mg PO Q4H PRN PRN Reason: Heartburn Hydromorphone HCl (Hydromorphone Hcl 1 Mg/Ml Syringe) 0.5 mg IVPUSH Q4H PRN; Protocol PRN Reason: Pain, Severe (Pain Scale 7-10) Last Admin: 09/13/25 07:28 Dose: 0.5 mg Metronidazole (Flagyl) 500 mg in 100 mls @ 100 mls/hr IV Q8H [facility] Last Infusion: 09/13/25 04:58 Dose: Infused Dextrose/Sodium Chloride (D51/2ns) 1,000 mls @ 100 mls/hr IVCONT .Q10H [facility] Last Admin: 09/13/25 07:17 Dose: 100 mls/hr Ceftriaxone Sodium 1 gm/ (Sodium Chloride) 50 mls @ 100 mls/hr IV Q24H [facility] Last Admin: 09/13/25 07:46 Dose: 100 mls/hr Vancomycin HCl 500 mg/ Sodium (Chloride) 110 mls @ 110 mls/hr IV Q12H [facility] Magnesium Hydroxide (Milk Of Magnesia 30 Ml Oral.Susp) 30 ml PO DAILY PRN PRN Reason: Constipation Melatonin (Melatonin 3 Mg Tablet) 6 mg PO BEDTIME PRN PRN Reason: Insomnia Ondansetron HCl (Ondansetron Hcl 4 Mg/2 Ml Vial) 4 mg IVPUSH Q8H PRN PRN Reason: Nausea and Vomiting Pharmacy Consult (Consult Rx Vancomycin Dosing) 1 each MISCELLANE DAILY PRN PRN Reason: Consult order Polyethylene Glycol (Polyethylene Glycol 3350 17 Gm Powd.Pack) 17 gm PO DAILY PRN PRN Reason: Constipation Senna (Sennosides 8.6 Mg Tablet) 17.2 mg PO BEDTIME [facility] Last Admin: 09/12/25 21:13 Dose: 17.2 mg Sodium Chloride (0.9 % Sodium Chloride Flush 3 Ml Syringe) 3 ml IVFLUSH QSHIFT [facility] Last Admin: 09/13/25 00:36 Dose: Not Given Home Medications ?Medication ?Instructions ?Recorded ?Confirmed ?Last Taken ?Type aspirin 81 mg chewable tablet 1 tab PO DAILY 06/21/20 09/12/25 09/11/25 History cholecalciferol (vitamin D3) 25 1 tab PO DAILY 06/21/20 09/12/25 09/11/25 History mcg (1,000 unit) tablet (Vitamin D3) allopurinol 100 mg tablet 100 mg PO DAILY 03/26/23 09/12/25 09/11/25 History amlodipine 10 mg tablet 10 mg PO DAILY 03/26/23 09/12/25 09/11/25 History dapagliflozin propanediol 10 mg 10 mg PO DAILY 03/26/23 09/12/25 09/11/25 History tablet (Farxiga) nystatin 100,000 unit/gram topical 1 appl topical BID PRN Rash 03/26/23 09/12/25 Unknown History powder torsemide 20 mg tablet 40 mg PO DAILY 03/26/23 09/12/25 09/11/25 History escitalopram oxalate 10 mg tablet 10 mg PO BEDTIME 04/14/25 09/12/25 09/11/25 History levothyroxine 150 mcg tablet 150 mcg PO DAILY@0600 04/14/25 09/12/25 09/11/25 History baclofen 20 mg tablet 20 mg PO BEDTIME PRN Muscle Spasm 04/22/25 09/12/25 Unknown History carvedilol 3.125 mg tablet 3.125 mg PO BID 08/28/25 09/12/25 09/11/25 History escitalopram oxalate 20 mg tablet 20 mg PO DAILY 08/28/25 09/12/25 09/11/25 History gabapentin 600 mg tablet 600 mg PO TID anxiety 08/28/25 09/12/25 09/11/25 History losartan 25 mg tablet 25 mg PO DAILY 08/28/25 09/12/25 09/11/25 History budesonide-formoterol HFA 160 2 puff inhalation BID 09/12/25 09/12/25 09/11/25 History mcg-4.5 mcg/actuation aerosol inhaler ropinirole 0.5 mg tablet 0.5 mg PO BEDTIME PRN restless legs 09/12/25 09/12/25 Unknown History sulfamethoxazole 800 1 tab PO Q12H 09/12/25 09/12/25 09/11/25 History mg-trimethoprim 160 mg tablet Physical Exam Vital Signs: Vital Signs: Last Vital Signs Temp 97.5 F 09/13/25 07:50 Pulse 75 09/13/25 07:50 Resp 16 09/13/25 07:50 BP 123/60 09/13/25 07:50 Pulse Ox 93 09/13/25 07:50 O2 Del Method Room Air 09/13/25 07:50 BMI result Body Mass Index 43.9 Extrem: Other: On inspection, there is visible edema and ecchymosis of the anterior aspect of the right knee Small, scabbed over superficial abrasion is also noted on the anterior aspect of the knee No erythema No evidence of infection Patient reports no tenderness to palpation in the patella, parapatellar region, medial and lateral joint line, posterior knee Patient is able to extend the left knee to 0 degrees and flex to approximately 50 degrees without difficulty Patient is able to actively extend the right knee and perform a straight leg raise Distal sensation intact Capillary refill brisk Results Labs 09/13/25 05:45 09/13/25 05:45 Labs: Abnormal lab results 09/12/25 09/13/25 Range/Units 05:01 05:45 RBC 4.14 L (4.20-5.50) X10*6/uL Hgb 10.8 L (12.0-16.0) g/dl Hct 35.0 L (37.0-47.0) % MCH 26.1 L (27.0-33.0) pg MCHC 30.9 L (31.0-35.0) g/dl Lymph % (Auto) 15.7 L (20-40) % Abs Immat Gran (auto) 0.04 H (0.00-0.03) X10*3/uL Potassium 2.8 L* D (3.3-5.1) mmol/L Chloride 110 H (96-108) mmol/L Anion Gap 11 L (12-20) Random Glucose 142 H (60-115) mg/dL Uric Acid 7.4 H (2.4-5.7) mg/dL Phosphorus 2.2 L (2.7-4.5) mg/dL Total Creatine Kinase 359 H (26-140) U/L NT-Pro-B Natriuret Pep 358.9 H (<300) pg/mL Total Protein 5.2 L (6.5-8.0) g/dL Albumin 3.2 L (3.5-5.0) g/dL H & H 09/12/25 09/13/25 Range/Units 05:01 05:45 Hgb 13.5 10.8 L (12.0-16.0) g/dl Hct 42.8 35.0 L (37.0-47.0) % All other labs normal. Diagnostic results Knee x-ray: report reviewed and image reviewed Assessment and Plan (1) Contusion of right knee: Status: Acute (2) Effusion of knee joint right: Status: Acute (3) Accident due to mechanical fall without injury: Status: Acute (4) Traumatic ecchymosis of multiple sites of lower extremity: Qualifiers: Encounter type: initial encounter Laterality: unspecified laterality Qualified Code(s): S80.10XA - Contusion of unspecified lower leg, initial encounter Status: Acute Plan 1. Right knee effusion and contusion after fall Date of injury 09/12/2025 Patient is educated about this condition Patient is educated about the typical recovery course No evidence of fracture noted on x-ray or physical exam Severe tricompartmental osteoarthritis of right knee noted No physical exam evidence of quadriceps tendon rupture Continue working with physical therapy for range of motion and gait training of the right knee There is no acute orthopedic intervention indicated at this time Patient may follow-up palpation in our office if her right knee continues to bother Procedures Date of Service Date of Service: 09/13/25
--- NOTE | 2025-09-13 08:56 | PM.NEUROCN ---
History of Present Illness Data of Consult Service Date: 09/13/25 Primary Care Provider: Unknown Physician HPI Reason for consult: Unwitnessed fall This is a 75-year-old female with h/o hypertension, hyperlipidemia, osteoarthritis, chronic lymphedema, essential tremor, hypothyroidism, diverticulosis, PTSD, MDD, asthma was brought in by ambulance from her home in group home at [place] after an unwitnessed fall today. The patient says that she slipped out of her chair and landed up on the floor and denies loss of consciousness. She did not hit her head. Patient does have emergency device and she pressed the button to obtain help. Patient is not certain how long she was on the floor for but she did not think it was for very long. Pt appears to be a poor historian overall. Per ED record, patient was confused but currently patient is alert and orientated x3. Patient does not recall earlier events specifically and states she was not confused earlier. CT scan of the head shows age-related atrophy and mild microvascular changes in the white matter. Labs consistent with dehydration and possible infection with elevated white count Patient was recently admitted on 08/28/2025 for altered mental status. Patient was found to be negative for hypercapnia and had no lactic acidosis. Chest x-ray at that time was negative for pneumonia. UA was positive for leukocyte esterase only. And CT had been negative for intracranial abnormality. Ammonia also normal. Patient was discharged on 08/30/2025 with diagnosis of uncomplicated UTI, cellulitis of the lower extremities and suspicion for polypharmacy. Patient was also thought to be dehydrated and received fluid resuscitation and continue to eat and drink well during this past admission. Patient was not transferred to short-term rehab. [facility] Past Medical History Medical History (Updated 09/13/25 @ 09:21 by Judith Quinonez MD) HLD (hyperlipidemia) Lymphedema Asthma Anemia Hypothyroid HTN (hypertension) PTSD (post-traumatic stress disorder) Recurrent major depression-severe Family History Family History Other Depression Social History Social History Household Members: None Household Members Other:: Lives with her cat Housing: Apartment Housing Other:: group home housing Are you a primary healthcare social worker to a significant other at home: No Do you presently have visiting nurse or other home services: Yes ([employer]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 If so, by whom?: No Do you feel safe in your current relationship?: No Current Relationship Is there a partner from a previous relationship who is making you feel unsafe now?: No Are you made to feel afraid or neglected: No Advance Directives: Yes Advance Directives on File: Yes Advance Directives Date on File: 03/26/23 Do you have a plan to hurt others: No Plan Recently lost weight without trying: No Eating poorly because of decreased appetite: No Nutrition Risks: No Nutritional Risk Patient : No service: No Meds Allergies Allergy/AdvReac Type Severity Reaction Status Date / Time lisinopril (LISINOPRIL) Allergy Intermediate RASH Verified 09/12/25 04:52 quetiapine (From SEROQUEL) Allergy Intermediate RASH Verified 09/12/25 04:52 sertraline (From ZOLOFT) Allergy Intermediate RASH, Verified 09/12/25 04:52 DIZZINESS loratadine (From CLARITIN) Allergy Mild UNKNOWN Verified 09/12/25 04:52 methimazole (From TAPAZOLE) Allergy Mild RASH Verified 09/12/25 04:52 potassium chloride Allergy Unknown Unknown Verified 09/12/25 04:52 propranolol (PROPRANOLOL) AdvReac Severe anergy Verified 09/12/25 04:52 Active Medications: Current Medications Acetaminophen (Acetaminophen 325 Mg Tablet) 650 mg PO Q6H PRN PRN Reason: Pain, Mild 1-3,fever,headache Last Admin: 09/13/25 03:14 Dose: 650 mg Albuterol/Ipratropium (Albuterol/Iprat 2.5/0.5mg 3 Ml Ampul.Neb) 3 ml INHALE Q4H PRN PRN Reason: Shortness of Breath/Wheezing Calcium Carbonate (Calcium Carbonate 750 Mg Tab.Chew) 750 mg PO Q4H PRN PRN Reason: Heartburn Hydromorphone HCl (Hydromorphone Hcl 1 Mg/Ml Syringe) 0.5 mg IVPUSH Q4H PRN; Protocol PRN Reason: Pain, Severe (Pain Scale 7-10) Last Admin: 09/13/25 07:28 Dose: 0.5 mg Metronidazole (Flagyl) 500 mg in 100 mls @ 100 mls/hr IV Q8H [facility] Last Infusion: 09/13/25 04:58 Dose: Infused Dextrose/Sodium Chloride (D51/2ns) 1,000 mls @ 100 mls/hr IVCONT .Q10H [facility] Last Admin: 09/13/25 07:17 Dose: 100 mls/hr Ceftriaxone Sodium 1 gm/ (Sodium Chloride) 50 mls @ 100 mls/hr IV Q24H [facility] Last Infusion: 09/13/25 08:40 Dose: Infused Vancomycin HCl 500 mg/ Sodium (Chloride) 110 mls @ 110 mls/hr IV Q12H [facility] Last Admin: 09/13/25 08:34 Dose: 100 mls/hr Magnesium Hydroxide (Milk Of Magnesia 30 Ml Oral.Susp) 30 ml PO DAILY PRN PRN Reason: Constipation Melatonin (Melatonin 3 Mg Tablet) 6 mg PO BEDTIME PRN PRN Reason: Insomnia Ondansetron HCl (Ondansetron Hcl 4 Mg/2 Ml Vial) 4 mg IVPUSH Q8H PRN PRN Reason: Nausea and Vomiting Pharmacy Consult (Consult Rx Vancomycin Dosing) 1 each MISCELLANE DAILY PRN PRN Reason: Consult order Polyethylene Glycol (Polyethylene Glycol 3350 17 Gm Powd.Pack) 17 gm PO DAILY PRN PRN Reason: Constipation Senna (Sennosides 8.6 Mg Tablet) 17.2 mg PO BEDTIME [facility] Last Admin: 09/12/25 21:13 Dose: 17.2 mg Sodium Chloride (0.9 % Sodium Chloride Flush 3 Ml Syringe) 3 ml IVFLUSH QSHIFT [facility] Last Admin: 09/13/25 08:24 Dose: Not Given Home Medications ?Medication ?Instructions ?Recorded ?Confirmed ?Last Taken ?Type aspirin 81 mg chewable tablet 1 tab PO DAILY 06/21/20 09/12/25 09/11/25 History cholecalciferol (vitamin D3) 25 1 tab PO DAILY 06/21/20 09/12/25 09/11/25 History mcg (1,000 unit) tablet (Vitamin D3) allopurinol 100 mg tablet 100 mg PO DAILY 03/26/23 09/12/25 09/11/25 History amlodipine 10 mg tablet 10 mg PO DAILY 03/26/23 09/12/25 09/11/25 History dapagliflozin propanediol 10 mg 10 mg PO DAILY 03/26/23 09/12/25 09/11/25 History tablet ([place]) nystatin 100,000 unit/gram topical 1 appl topical BID PRN Rash 03/26/23 09/12/25 Unknown History powder torsemide 20 mg tablet 40 mg PO DAILY 03/26/23 09/12/25 09/11/25 History escitalopram oxalate 10 mg tablet 10 mg PO BEDTIME 04/14/25 09/12/25 09/11/25 History levothyroxine 150 mcg tablet 150 mcg PO DAILY@0600 04/14/25 09/12/25 09/11/25 History baclofen 20 mg tablet 20 mg PO BEDTIME PRN Muscle Spasm 04/22/25 09/12/25 Unknown History carvedilol 3.125 mg tablet 3.125 mg PO BID 08/28/25 09/12/25 09/11/25 History escitalopram oxalate 20 mg tablet 20 mg PO DAILY 08/28/25 09/12/25 09/11/25 History gabapentin 600 mg tablet 600 mg PO TID anxiety 08/28/25 09/12/25 09/11/25 History losartan 25 mg tablet 25 mg PO DAILY 08/28/25 09/12/25 09/11/25 History budesonide-formoterol HFA 160 2 puff inhalation BID 09/12/25 09/12/25 09/11/25 History mcg-4.5 mcg/actuation aerosol inhaler ropinirole 0.5 mg tablet 0.5 mg PO BEDTIME PRN restless legs 09/12/25 09/12/25 Unknown History sulfamethoxazole 800 1 tab PO Q12H 09/12/25 09/12/25 09/11/25 History mg-trimethoprim 160 mg tablet Physical Exam Vital Signs: Vital Signs: Last Vital Signs Temp 97.5 F 09/13/25 07:50 Pulse 75 09/13/25 07:50 Resp 16 09/13/25 07:50 BP 123/60 09/13/25 07:50 Pulse Ox 93 09/13/25 07:50 O2 Del Method Room Air 09/13/25 07:50 BMI result Body Mass Index 43.9 Neuro: Other: She is alert and oriented except she thought it was the instead of the 13 of September. Her speech and language functions are intact. Cranial nerves 2-12 are normal. She has a resting tremor of the left hand and constant movements of both feet. Her exam is nonfocal. Muscle tone and strength are normal. Plantar responses are flexor. Results Labs 09/13/25 05:45 09/13/25 05:45 Labs: Short CBC 09/13/25 Range/Units 05:45 WBC 9.6 (4.8-10.8) X10*3/uL Hgb 10.8 L (12.0-16.0) g/dl Hct 35.0 L (37.0-47.0) % Plt Count 198 D (160-400) X10*3/uL BMP 09/13/25 05:45 Sodium 143 Potassium 2.8 L* D Chloride 110 H Carbon Dioxide 25 BUN 13 Creatinine 0.72 Calcium 9.3 D Cardiac Enzymes 09/12/25 Range/Units 05:01 Total Creatine Kinase 359 H (26-140) U/L Liver Function 09/13/25 Range/Units 05:45 Total Bilirubin 0.4 (0.0-1.0) mg/dL AST 23 (5-31) U/L ALT 8 (0-31) U/L Alkaline Phosphatase 53 (39-117) U/L Albumin 3.2 L (3.5-5.0) g/dL Assessment and Plan (1) Essential tremor: Status: Acute She has longstanding tremors in the hands consistent with essential tremor. No other signs of Parkinson's disease. Would consider adding primidone 50 mg half a tablet a day for symptomatic relief. She also has restless legs syndrome for which she is already on medications ropinirole and gabapentin. Those can be continued. It does not appear that she had a syncopal episode. She apparently slipped out of the chair reaching for something and fell to the floor without loss of consciousness. (2) Restless leg syndrome: Status: Acute Procedures Date of Service Date of Service: 09/13/25
[2025-09-13 09:24] LABS: Magnesium 2.0 mg/dL (1.6-2.6)
[2025-09-13] MEDS: Potassium Chloride ER 20 MEQ TAB.ER.PRT 40 MEQ PO (09:24)
[2025-09-13] MEDS: buPROPion HCl XL 300 MG TAB.ER.24H PO (09:25)
[2025-09-13 11:41] VITALS: BP 106/48; PULSE 78; RESP 14; TEMP 36.4; O2SAT 94
--- NOTE | 2025-09-13 12:42 | P.PNIM_ITS ---
Subjective Subjective Date of Service: 09/14/25 Interval History: acute diverticulitis ,right knee pain Review of Systems no new c/o has knee soarness Physical Exam 2 Exam: Exam: Appearance: Alert.? Oriented X3. cvs: rrr, [id number] . res: clear to auscultation ,no rhonchii or wheezing abd: no rebound or guarding ,nt, bs present. ext pulses present , no cyanosis. Ms: Right knee soarness /pain neuro: axo3 , nonfocal. Vital Signs: Vital Signs: Last Vital Signs Temp 97.6 F 09/13/25 11:41 Pulse 78 09/13/25 11:41 Resp 14 09/13/25 11:41 BP 106/48 L 09/13/25 11:41 Pulse Ox 94 09/13/25 11:41 O2 Del Method Room Air 09/13/25 11:41 BMI result Body Mass Index 43.9 Objective Data Active Medications Acetaminophen (Acetaminophen 325 Mg Tablet) 650 mg PO Q6H PRN PRN Reason: Pain, Mild 1-3,fever,headache Last Admin: 09/13/25 03:14 Dose: 650 mg Documented By: BOY Albuterol/Ipratropium (Albuterol/Iprat 2.5/0.5mg 3 Ml Ampul.Neb) 3 ml INHALE Q4H PRN PRN Reason: Shortness of Breath/Wheezing Allopurinol (Allopurinol 100 Mg Tablet) 100 mg PO DAILY [facility] Last Admin: 09/13/25 09:25 Dose: 100 mg Documented By: ROMINA Amlodipine Besylate (Amlodipine Besylate 10 Mg Tablet) 10 mg PO DAILY [facility]; Protocol Last Admin: 09/13/25 09:25 Dose: 10 mg Documented By: ROMINA Aspirin (Aspirin 81 Mg Tab.Chew) 81 mg PO DAILY [facility] Last Admin: 09/13/25 09:25 Dose: 81 mg Documented By: ROMINA Baclofen (Baclofen 20 Mg Tablet) 20 mg PO BEDTIME PRN PRN Reason: Muscle Spasm Bupropion HCl (Bupropion Hcl Xl 300 Mg Tab.Er.24h) 300 mg PO DAILY [facility] Last Admin: 09/13/25 09:25 Dose: 300 mg Documented By: ROMINA Calcium Carbonate (Calcium Carbonate 750 Mg Tab.Chew) 750 mg PO Q4H PRN PRN Reason: Heartburn Carvedilol (Carvedilol 3.125 Mg Tablet) 3.125 mg PO BID [facility]; Protocol Last Admin: 09/13/25 09:25 Dose: 3.125 mg Documented By: ROMINA Empagliflozin (Empagliflozin 10 Mg Tablet) 10 mg PO DAILY [facility] Escitalopram Oxalate (Escitalopram Oxalate 10 Mg Tablet) 10 mg PO BEDTIME [facility] Escitalopram Oxalate (Escitalopram Oxalate 20 Mg Tablet) 20 mg PO DAILY [facility] Last Admin: 09/13/25 09:25 Dose: 20 mg Documented By: ROMINA Fluticasone/Vilanterol (Fluticasone/Vilanterol 200/25 Blst.W.Dev) 1 puff INHALE RDAILY [facility] Gabapentin (Gabapentin 600 Mg Tablet) 600 mg PO TID [facility] Last Admin: 09/13/25 09:25 Dose: 600 mg Documented By: ROMINA Hydromorphone HCl (Hydromorphone Hcl 1 Mg/Ml Syringe) 0.5 mg IVPUSH Q4H PRN; Protocol PRN Reason: Pain, Severe (Pain Scale 7-10) Last Admin: 09/13/25 07:28 Dose: 0.5 mg Documented By: ROMINA Metronidazole (Flagyl) 500 mg in 100 mls @ 100 mls/hr IV Q8H [facility] Last Infusion: 09/13/25 12:34 Dose: Infused Documented By: ROMINA Dextrose/Sodium Chloride (D51/2ns) 1,000 mls @ 100 mls/hr IVCONT .Q10H [facility] Last Admin: 09/13/25 07:17 Dose: 100 mls/hr Documented By: ROMINA Ceftriaxone Sodium 1 gm/ (Sodium Chloride) 50 mls @ 100 mls/hr IV Q24H [facility] Last Infusion: 09/13/25 08:40 Dose: Infused Documented By: ROMINA Vancomycin HCl 500 mg/ Sodium (Chloride) 110 mls @ 110 mls/hr IV Q12H [facility] Last Infusion: 09/13/25 09:50 Dose: Infused Documented By: ROMINA Levothyroxine Sodium (Levothyroxine Sodium 150 Mcg Tablet) 150 mcg PO DAILY@0600 [facility] Losartan Potassium (Losartan Potassium 25 Mg Tablet) 25 mg PO DAILY [facility]; Protocol Last Admin: 09/13/25 09:25 Dose: 25 mg Documented By: ROMINA Magnesium Hydroxide (Milk Of Magnesia 30 Ml Oral.Susp) 30 ml PO DAILY PRN PRN Reason: Constipation Melatonin (Melatonin 3 Mg Tablet) 6 mg PO BEDTIME PRN PRN Reason: Insomnia Nystatin (Nystatin Powder 15 Gm Bottle) 1 appl TOPICAL BID PRN; Protocol PRN Reason: Rash Ondansetron HCl (Ondansetron Hcl 4 Mg/2 Ml Vial) 4 mg IVPUSH Q8H PRN PRN Reason: Nausea and Vomiting Pharmacy Consult (Consult Rx Vancomycin Dosing) 1 each MISCELLANE DAILY PRN PRN Reason: Consult order Polyethylene Glycol (Polyethylene Glycol 3350 17 Gm Powd.Pack) 17 gm PO DAILY PRN PRN Reason: Constipation Ropinirole HCl (Ropinirole Hcl 0.5 Mg Tablet) 0.5 mg PO BEDTIME PRN PRN Reason: restless legs Senna (Sennosides 8.6 Mg Tablet) 17.2 mg PO BEDTIME [facility] Last Admin: 09/12/25 21:13 Dose: 17.2 mg Documented By: ATTILA Sodium Chloride (0.9 % Sodium Chloride Flush 3 Ml Syringe) 3 ml IVFLUSH QSHIFT [facility] Last Admin: 09/13/25 08:24 Dose: Not Given Documented By: ROMINA Non-Admin Reason: IV Running Vitamin D (Cholecalciferol (Vitamin D3) 25 Mcg Tablet) 25 mcg PO DAILY [facility] Last Admin: 09/13/25 09:25 Dose: 25 mcg Documented By: ROMINA Labs 09/13/25 05:45 09/14/25 05:32 Labs: Laboratory Results - last 24 hr 09/12/25 09/12/25 09/13/25 05:01 17:50 05:45 MCV 84.5 MCH 26.1 L MCHC 30.9 L RDW 15.5 Plt Count 198 D MPV 10.8 Immature Gran % (Auto) 0.4 Neut % (Auto) 72.1 Lymph % (Auto) 15.7 L Polk % (Auto) 7.5 Eos % (Auto) 3.9 Baso % (Auto) 0.4 Lymph # (Auto) 1.5 Polk # (Auto) 0.7 Eos # (Auto) 0.4 Baso # (Auto) 0.0 Abs Immat Gran (auto) 0.04 H Absolute Neuts (auto) 6.9 Absolute Nucleated RBC 0.000 Nucleated RBC % (auto) 0.0 Anion Gap 11 L Estim Creat Clear Calc 73.2 Estimated GFR > 60 Random Glucose 142 H Lactic Acid 1.6 Uric Acid 7.4 H Calcium 9.3 D Phosphorus 2.2 L Magnesium 1.9 2.0 Total Bilirubin 0.4 AST 23 ALT 8 Alkaline Phosphatase 53 Total Creatine Kinase 359 H NT-Pro-B Natriuret Pep 358.9 H Total Protein 5.2 L Albumin 3.2 L Microbiology Microbiology Results: Microbiology 09/12/25 Unknown Urine Culture - Preliminary Urine clean catch - Clean Catch Midstream Culture in progress. Assessment and Plan (1) Acute diverticulitis: Status: Acute (2) LUX (acute kidney injury): Status: Acute (3) Knee pain, right: Status: Acute Assessment and Plan: 75-year-old female with past medical history hypertension, Gout, RLS, hyperlipidemia, osteoarthritis, chronic lymphedema, essential tremor, hypothyroidism, diverticulosis, PTSD, MDD, asthma was brought in by ambulance from her home where she lives alone in correction at [facility] after unwitnessed fall today. Patient denies any hit to the head and is not on blood thinners. Patient denies any LOC. Patient does have emergency device and she pressed the button to achieve help. Patient being admitted for multiple findings including acute diverticulitis, LUX, effusion of the right knee joint status post unwitnessed fall, essential tremor. Acute diverticulitis Patient is started on ceftriaxone and Flagyl, these antibiotics will continue Patient currently symptom-free Pain management as needed clear liquid diet ,can transition to clears as tolerated then low residual diet LUX improving with IV hydration continue Hold torsemide and losartan Avoid hypotension and nephrotoxic medication. acute hypokalemia : added po potassium Hypophosphatemia: Added Neutra-Phos UTI Low threshold for UTI, positve for LE, WBCs, yong bacteria Follow urine culture On ceftriaxone Effusion of R knee joint status post unwitnessed fall/ No LOC reported Consult for Orthopedics placed, patient may likely need intervention, holding Lovenox Patient is started on vancomycin along with ceftriaxone Knee x-ray is negative for fracture or dislocation Hold DVT prophylaxis PT eval CT head negative for acute findings Hypercalcemia-improved with hydration low Phosphoous levels and Vitamin D pending Chronic Lymphedema Will need to hold torsemide due to renal function Pt does not receive treatment in the community or wear wraps at home May be contributing to mobility issues Essential tremor/ HX RLS Neurology consulted-likely essential tremers -added primidone ,continue on ropinirole/gabapentine. PT/OT Recent issues with altered mental status (admission 08/28 - 08/30/25 for AMS) Confusion noted by EMS on arrival earlier today, patient currently at baseline UA is borderline positive for UTI patient is on ceftriaxone OT consulted for Wolfe()-moderate codnitive impairment. Hypertension BP currenlty stable Low sodium diet Pt normally on amlodipine, Coreg and losartan: currently on hold Hyperlipidemia Pt not currently on statin Cardiac diet Hypothyroidism Continue levothyroxine TSH has been WNL Obesity Nutritional consult ordered PTSD/ MDD Qtc stable DVT prophylaxis: on hold due to knee effusion FULL CODE Patient will require at least a 2 midnight stay for IV antibiotics, IV hydration, expert consultation with Neurology for right knee effusion and case management review regarding safety measures. Quality Stroke Does the patient have a stroke diagnosis?: No Reason for No Anti-thrombotic by Day Two: Contraindicated (knee effusion ) VTE Prior VTE?: No VTE Risk Level:: Medical - moderate - high VTE Device Contraindication: N/A - Device Ordered VTE Drug Contraindication: N/A - Med Ordered
--- NOTE | 2025-09-13 12:49 | MHC.CM.PN ---
IMM 09/13/25, Pt. lives alone, PCP is [facility]. Pt. has [facility] services 16-18 hrs per week. HCP is on file and confirmed: Clotilde. Pt. said she is active with PT, OT and [facility]. Pt. informed CM today that she plans to return home at DC, instead of going to [facility]. CM to follow for DC needs.
[2025-09-13] MEDS: Sodium,Potassium Phosphates POWD.PACK 1 PACKET PO ×3 (12:56→20:46)
--- NOTE | 2025-09-13 14:23 | P.CDIM_ITS ---
PROVIDER RESPONSE TEXT: To clarify, the appropriate diagnosis supported by the clinical indicators: Obesity Due to excess calories QUERY TEXT: PHYSICIAN'S DOCUMENTATION REQUEST Date of Query: 09/13/2025 01:12 PM EST Patient Name: Sharon Nugent Admit Date: 09/13/2025 Dear Theron Harrell MD, A review of the medical record indicates additional documentation may be needed. Please review below and update the documentation accordingly. Clinical Indicators: Height: ( ) 5'2 Weight: ( ) 109 kg BMI: ( ) 44.0 Other Clinical Notes Supporting Significance of the BMI: obesity on therapeutic diet If possible, please provide an associated diagnosis related to the abnormal BMI, such as: Overweight Obesity Due to excess calories Obesity Drug induced Obesity Due to other cause Specify the other cause Severe or Morbid Obesity With alveolar hypoventilation Severe or Morbid Obesity Without alveolar hypoventilation BMI is not significant Other (explain) Clinically unable to determine (explain) Thank you, Linda Tong RN Use of terms such as suspected, likely, concern for, or probable (associated with a specific diagnosis that is being evaluated, monitored, or treated as if it exists) are acceptable and can be coded in the inpatient setting, when documented at the time of discharge. Please use your independent medical judgment in providing your response. THIS QUERY IS PART OF THE PERMANENT MEDICAL RECORD
[2025-09-13] MEDS: Potassium Chloride ER 20 MEQ TAB.ER.PRT PO (15:17)
[2025-09-13 15:55] VITALS: BP 104/55; PULSE 79; RESP 18; TEMP 36.4; O2SAT 96
[2025-09-13 19:00] LABS: Potassium 3.9 mmol/L (3.3-5.1)
[2025-09-13 19:48] VITALS: BP 122/58; PULSE 76; RESP 18; TEMP 36.3; O2SAT 96
[2025-09-13 23:25] VITALS: RESP 16
[2025-09-14] VITALS: BP 125/30; PULSE 74; RESP 18; TEMP 36.3; O2SAT 96
[2025-09-14 03:58] VITALS: BP 125/52; PULSE 68; RESP 18; TEMP 36.2; O2SAT 96
[2025-09-14] MEDS: metroNIDAZOLE/NS 500 MG/100 ML PIGGYBACK 100 MG IV (05:37)
[2025-09-14 06:44] LABS: Anion Gap 10 (12-20); Blood Urea Nitrogen 8 mg/dL (9-16); Calcium 8.9 mg/dL (8.4-10.2); Carbon Dioxide 25 mmol/L (22-29); Chloride 110 mmol/L (96-108); Creatinine Clr Calc Pharmacy 94.0; Estimated Glomerular Filt Rate > 60; Potassium 3.7 mmol/L (3.3-5.1); Sodium 141 mmol/L (135-145)
[2025-09-14 07:02] VITALS: BP 102/58; PULSE 76; RESP 16; TEMP 36.6; O2SAT 94
[2025-09-14] MEDS: Dextrose 5 % and 0.45 % NaCl 1,000 ML 100 ML IVCONT (07:32)
--- NOTE | 2025-09-14 08:24 | PM.PNORT ---
Subjective Subjective Date of Service: 09/14/25 Interval history: Patient is a 75-year-old female who was on admission day 2 for acute diverticulitis and acute encephalopathy Patient did experience a fall prior to admission Patient reports that her knee pain has remained consistent since admission Patient does state that she was able to ambulate to both the commode and the recliner with minimal difficulty with a walker She does report that range of motion of the right knee is still difficult No other acute complaints or concerns at this time Physical Exam Vital Signs: Vital Signs: Last Vital Signs Temp 98 F 09/14/25 07:02 Pulse 76 09/14/25 07:02 Resp 16 09/14/25 07:02 BP 102/58 L 09/14/25 07:02 Pulse Ox 94 09/14/25 07:02 O2 Del Method Room Air 09/14/25 07:02 BMI result Body Mass Index 43.9 Extrem: Other: On inspection, there is visible edema and ecchymosis of the anterior aspect of the right knee, and there is now a small blister surrounding the superficial abrasion Small, scabbed over superficial abrasion is also noted on the anterior aspect of the knee No erythema No evidence of infection Patient reports tenderness to palpation of the medial and anterior aspect of the right knee No tenderness to palpation of the lateral aspect or posterior knee Patient is able to extend the left knee to 0 degrees and flex to approximately 40 degrees without difficulty Patient is able to actively extend the right knee and perform a straight leg raise Distal sensation intact Capillary refill brisk Procedures Date of Service Date of Service: 09/14/25 Progress Note: A&P Assessment and plan (1) Contusion of right knee: Status: Acute (2) Fall: Status: Acute (3) Traumatic ecchymosis of multiple sites of lower extremity: Status: Acute (4) Effusion of knee joint right: Status: Acute Plan Continue pain management Encourage ice and gentle compression with Ruben bandage to combat swelling Weight-bearing as tolerated right lower extremity No evidence of fracture on x-ray Continue working with physical therapy Time Spent With Patient Time: Total time managing care of this patient today ____ minutes. Quality Stroke Does the patient have a stroke diagnosis?: No Reason for No Anti-thrombotic by Day Two: Contraindicated (knee effusion ) VTE Prior VTE?: No VTE Risk Level:: Medical - moderate - high VTE Device Contraindication: N/A - Device Ordered VTE Drug Contraindication: N/A - Med Ordered
[2025-09-14] MEDS: Sodium,Potassium Phosphates POWD.PACK 1 PACKET PO ×2 (08:54→11:50)
[2025-09-14] MEDS: buPROPion HCl XL 300 MG TAB.ER.24H PO (08:54)
[2025-09-14 11:40] VITALS: BP 98/55; PULSE 69; RESP 16; TEMP 36.6; O2SAT 94
--- NOTE | 2025-09-14 12:52 | MHC.CM.PN ---
DP: PT HAS BEEN MEDICALLY CLEARED FOR DC TO [facility] AT [facility], [place]. INSURANCE AUTH WAS PREVIOUSLY OBTAINED. PT IS AGREEABLE TO THE PLAN AND WILL CONTACT HER SISTER. RN/PROVIDER NOTIFIED. BLS TRANSPORT BOOKED FOR 4 PM [facility]IA [facility].
--- NOTE | 2025-09-14 13:33 | PM.DS ---
DS: Providers Provider Date of admission: 09/12/25 19:42 Date of discharge: 09/14/25 Primary care physician: Unknown Physician Consults: 09/12/25 19:49 Consult to Orthopedics Routine Consulting Provider: [facility] Orthopedic Surgeons Reason for consultation: moderate r knee effusion 09/12/25 20:50 Consult to Neurology Routine Consulting Provider: [facility] Reason for consultation: essential tremor, multiple falls, suspect parkinson's Has provider been notified: No 09/14/25 04:47 Consult to Wound Care Routine Consulting Provider: [facility] Wound Care Management Reason for consultation: effusion right knee with bruising, scab, blisters Attending physician on discharge: Theron Harrell Discharging clinician: Theron Harrell DS: Diagnosis Discharge Diagnosis (1) Contusion of right knee: Status: Acute (2) Fall: Status: Acute (3) Traumatic ecchymosis of multiple sites of lower extremity: Status: Acute (4) Effusion of knee joint right: Status: Acute DS: Summary Hospital Course Hospital Course: HPI:75-year-old female with past medical history hypertension, hyperlipidemia, osteoarthritis, chronic lymphedema, essential tremor, hypothyroidism, diverticulosis, PTSD, MDD, asthma was brought in by ambulance from her home where she lives alone in skilled nursing at [place] after unwitnessed fall today. Patient denies any hit to the head and is not on any blood thinners. Patient denies any LOC. Patient does have emergency device and she pressed the button to obtain help. Patient is not certain how long she was on the floor for but she did not think it was for very long. Pt appears to be a poor historian overall. Per ED record, patient was confused but currently patient is alert and orientated x3. Patient does not recall earlier events specifically and states she was not confused earlier. Patient was recently admitted on 08/28/2025 for altered mental status. Patient was found to be negative for hypercapnia and had no lactic acidosis. Chest x-ray at that time was negative for pneumonia. UA was positive for leukocyte esterase only. And CT had been negative for intracranial abnormality. Ammonia also normal. Patient was discharged on 08/30/2025 with diagnosis of uncomplicated UTI, cellulitis of the lower extremities and suspicion for polypharmacy. Patient was also thought to be dehydrated and received fluid resuscitation and continue to eat and drink well during this past admission. Patient was not transferred to short-term rehab. Workup today in the emergency department included chest x-ray negative for any acute findings. Patient also had a knee x-ray which notes prepatellar soft tissue swelling with moderate joint effusion. Patient also has severe tricompartmental osteoarthritis. Negative for dislocation or fracture. Head CT negative for any acute intracranial abnormality. Abdomen and pelvis CT notes acute uncomplicated diverticulitis and no evidence of urinary tract stone or obstruction. Patient does have a leukocytosis of 17.3 and a neutrophilia but no bandemia. There is no evidence of anemia. Electrolytes stable but patient has a evidence of LUX with a creatinine 1.61 and a creatinine clearance of 32.7 and GFR of 31. Lactic acid 1.6. UA low threshold for UTI with LE, WBCs and trace bacteria. Patient is started on ceftriaxone and Flagyl for the acute diverticulitis in the ED. Patient is also receiving IV fluids. Patient will now be on vancomycin for evidence of cellulitis with right knee effusion that is currently warm to the touch. Patient accepted for admission for LUX, right knee effusion status post fall, acute diverticulitis, and essential tremor. Hospital course: 75-year-old female with past medical history hypertension, Gout, RLS, hyperlipidemia, osteoarthritis, chronic lymphedema, essential tremor, hypothyroidism, diverticulosis, PTSD, MDD, asthma was brought in by ambulance from her home where she lives alone in skilled nursing at [place] after unwitnessed fall today. Patient denies any hit to the head and is not on blood thinners. Patient denies any LOC. Patient does have emergency device and she pressed the button to achieve help. Patient being admitted for multiple findings including acute diverticulitis, LUX, effusion of the right knee joint status post unwitnessed fall, essential tremor. Acute diverticulitis: ct abd:Acute uncomplicated diverticulitis.No urinary tract stone or obstruction.blood culture neg@24hrs . patient started on ceftriaxone and Flagyl, currently symptom-free. switched to po augmentin. LUX improved. with IV hydration. start torsemide and hold losartan until repeat bmp. acute hypokalemia : improved po potassium. Hypophosphatemia: Added Neutra-Phos limited supply. UTI Low threshold for UTI, positve for LE, WBCs, yong bacteria urine culture -mixed araceli. Patient denies any urinary complaints, hold off on Bactrim since patient is already going with the Augmentin. Effusion of R knee joint status post unwitnessed fall/ No LOC reported Consult for Orthopedics placed, patient may likely need intervention, holding Lovenox Patient is started on vancomycin along with ceftriaxone Knee x-ray is negative for fracture or dislocation CT head negative for acute findings seen pt -str seen by ortho: bruise sec to fall , less likely infection. Continue pain management Encourage ice and gentle compression with Ruben bandage to combat swelling Weight-bearing as tolerated right lower extremity No evidence of fracture on x-ray Continue working with physical therapy Hypercalcemia-improved with hydration. low Phosphoous levels and Vitamin D pending -moniter outpatient. Chronic Lymphedema Will need to hold torsemide due to renal function Pt does not receive treatment in the community or wear wraps at home May be contributing to mobility issues Essential tremor/ HX RLS Neurology consulted-likely essential tremers -added primidone ,continue on ropinirole/gabapentine. PT rec str. Recent issues with altered mental status (admission 08/28 - 08/30/25 for AMS) Confusion noted by EMS on arrival earlier today, patient currently at baseline UA is borderline positive for UTI ,urine culture grew mixed araceli -switched to augmentin. OT consulted for [place]()-moderate cognitive impairment. plan: added essential tremers -added primidone. complete Augmentin course for 7 days. prednisone 40 mg po qdx3-for possible gout flare in setting of elevated uric acid. Monitor BMP and phosphorus level, please repeat vitamin-D levels outpatient-next 2 -3 days before starting back vitamin-D. Hold losartan until repeat BMP. Hold vitamin-D supplements until repeat vitamin-D levels patient. Assessment and plan coordination time spent 45 minute. Above was explained in detail to her sister Ms. Mabry-she understand and in agreement with the above plan. Time Attestation Total time managing care of this patient today: 45 mintues. Discharge Coordination Time (in mins): 45 min Quality: Safe Use of Opioids Does Pt have an Active Cancer Diagnosis on the Problem List?: No Quality: Stroke Does the patient have a stroke diagnosis?: No Physical Exam Exam: Exam: Appearance: Alert.? Oriented X3. cvs: rrr, [id number] . res: clear to auscultation ,no rhonchii or wheezing abd: no rebound or guarding ,nt, bs present. ext pulses present , no cyanosis. right knee bruise,rom improving Ms: Right knee soarness /pain neuro: axo3 , nonfocal. Vital Signs: Vital Signs: Last Vital Signs Temp 97.9 F 09/14/25 11:40 Pulse 69 09/14/25 11:40 Resp 16 09/14/25 11:40 BP 98/55 L 09/14/25 11:40 Pulse Ox 94 09/14/25 11:40 O2 Del Method Room Air 09/14/25 11:40 BMI result Body Mass Index 43.9 DS: Data Data Completed and Pending Labs on day of discharge: Laboratory Results - last 24 hr 09/13/25 09/14/25 18:44 05:32 Sodium 141 Potassium 3.9 D 3.7 Chloride 110 H Carbon Dioxide 25 Anion Gap 10 L BUN 8 L Creatinine 0.61 Estim Creat Clear Calc 94.0 Estimated GFR > 60 Random Glucose 112 Calcium 8.9 Phosphorus 2.6 L Random Vancomycin 12.1 L Preliminary micro results at discharge 09/12/25 17:53 Blood Culture - Preliminary Blood - Venous No growth after 24 hours. 09/12/25 17:51 Blood Culture - Preliminary Blood - Venous No growth after 24 hours. Imaging Chest x-ray: Radiologist's impression: ITS Impressions Chest X-Ray 09/12/25 05:39 IMPRESSION: Low lung volumes. No acute cardiopulmonary abnormality. Knee X-Ray 09/12/25 05:47 IMPRESSION: Prepatellar soft tissue swelling. Moderate joint effusion. Severe tricompartmental osteoarthritis. Head CT 09/12/25 08:27 IMPRESSION: No acute intracranial abnormality. Discharge Plan Discharge Anticipated Discharge Date/Time: 09/14/25 13:07 Patient Disposition: er SNF Discharge Diagnosis: Acute diverticulitis, LUX, hypokalemia, mild intermittent hypercalcemia Referrals: Moses Del Rio [Outside] - 1 Week Physician,Unknown J [Primary Care Provider, Medical] - 1 Week Discharge Medications: New amoxicillin-pot clavulanate 875-125 mg Tablet 1 tab PO Q12H Qty: 14 0RF sennosides [Senna Lax] 8.6 mg Tablet 17.2 mg PO BEDTIME Qty: 1 0RF acetaminophen 325 mg Tablet 975 mg PO Q6H PRN (Reason: Pain, Mild 1-3,Fever,Headache) Qty: 15 0RF prednisone 20 mg Tablet 40 mg PO DAILY Qty: 3 0RF potassium, sodium phosphates [Phos-NaK] 280-160-250 mg Powder In Packet 1 packet PO QID Qty: 8 0RF primidone 50 mg Tablet 25 mg PO DAILY Qty: 1 0RF Continued aspirin 81 mg tablet,chewable 1 tab PO DAILY bupropion HCl 300 mg tablet extended release 24 hr 1 tab PO DAILY Qty: 90 0RF ropinirole 0.5 mg tablet 0.5 mg PO BEDTIME PRN (Reason: restless legs) budesonide-formoterol 160-4.5 mcg/actuation HFA aerosol inhaler 2 puff inhalation BID torsemide 20 mg tablet 40 mg PO DAILY allopurinol 100 mg tablet 100 mg PO DAILY amlodipine 10 mg tablet 10 mg PO DAILY nystatin 100,000 unit/gram powder 1 appl topical BID PRN (Reason: Rash) Rx Instructions: apply to affected areas under breast or leg folds dapagliflozin propanediol [Farxiga] 10 mg tablet 10 mg PO DAILY levothyroxine 150 mcg tablet 150 mcg PO DAILY@0600 escitalopram oxalate 10 mg tablet 10 mg PO BEDTIME baclofen 20 mg tablet 20 mg PO BEDTIME PRN (Reason: Muscle Spasm) gabapentin 600 mg tablet 600 mg PO TID escitalopram oxalate 20 mg tablet 20 mg PO DAILY carvedilol 3.125 mg Tablet 3.125 mg PO BID Rx Instructions: must administer with a meal/food Held cholecalciferol (vitamin D3) [Vitamin D3] 25 mcg (1,000 unit) tablet 1 tab PO DAILY Hold Instructions: Resume on 10/17/25. sulfamethoxazole-trimethoprim 800-160 mg tablet 1 tab PO Q12H Hold Instructions: Resume on 09/21/25. losartan 25 mg Tablet 25 mg PO DAILY Hold Instructions: Resume on 09/18/25. Discharge Orders: Discharge Order (Routine); Ordered 09/14/25 Ordered By: Theron Harrell Diet: Advance to usual diet Activity on Discharge: As tolerated Stand Alone Forms: Patient Portal Discharge page Print Language: Uzbek Care Plan Goals: complete Augmentin course for 7 days. prednisone 40 mg po qdx3 for possible gout flare and elevaed uric acid. added Neutra-Phos limited supply for hypophosphatemia. Monitor BMP and phosphorus level, please repeat vitamin-D levels outpatient-next 2 -3 days before starting back vitamin-D. Hold vitamin-D supplements until repeat vitamin-D levels patient. Health Concerns: as above. Plan of Treatment: as above. Assessment: as above. Patient Instructions: Fall Prevention (ED)
--- NOTE | 2025-09-14 13:45 | PC.NURSE ---
Attempted to call report to [facility] [phone] on hold for 10 min
--- NOTE | 2025-09-14 14:17 | PC.NURSE ---
attempted to call nursing report to Laly whitaker 2nd time [phone], again on hold for 10 min .
--- NOTE | 2025-09-14 14:43 | PC.NURSE ---
nurse to nurse report given to MAGDALENE Segura at [facility]
[2025-09-14 15:37] VITALS: BP 124/59; PULSE 87; RESP 18; TEMP 36.4; O2SAT 95
[2025-09-17 10:53] LABS: Vitamin D 25-OH, D2 <4 ng/mL; Vitamin D 25-OH, D3 31 ng/mL; Vitamin D 25-OH, Total 31 ng/mL (30-100)
== END 2025-09-14 16:17 | disposition skilled nursing facility (03) | DRG 392 ==
LOC: HO.ED 19:24 → HO.EDOVER 19:50 → HO.S3 23:34
PROVIDERS: Emergency Medicine; Nurse Practitioner Family; Physician Assistant Medical; Admitting Provider Internal Medicine; Emergency Provider Emergency Medicine; PCP Nurse Practitioner Adult Health; Visit Provider Internal Medicine
DX: K57.32 Diverticulitis of large intestine without perforation or abscess without bleeding (principal); N17.9 Acute kidney failure, unspecified; N39.0 Urinary tract infection, site not specified; Z68.41 Body mass index [BMI] 40.0-44.9, adult; G93.40 Encephalopathy, unspecified; I89.0 Lymphedema, not elsewhere classified; I10 Essential (primary) hypertension; E03.9 Hypothyroidism, unspecified; F43.10 Post-traumatic stress disorder, unspecified; F32.9 Major depressive disorder, single episode, unspecified; G25.0 Essential tremor; E66.09 Other obesity due to excess calories; G25.81 Restless legs syndrome; E83.52 Hypercalcemia; E78.5 Hyperlipidemia, unspecified; W19.XXXA Unspecified fall, initial encounter; S80.01XA Contusion of right knee, initial encounter; Z79.82 Long term (current) use of aspirin; Z79.890 Hormone replacement therapy; Z79.899 Other long term (current) drug therapy
CPT/HCPCS: 36415; 70450; 71046; 73562; 74176; 80048; 80053; 80202; 81001; 82306; 82550; 83605; 83735; 83880; 84100; 84132; 84550; 85025; 87040; 87086; 87637; 93005; 97162; 97166; 99221; 99285; J0696; J1171; J1836; J3374

== ENCOUNTER → 2025-09-12 04:48 | Outpatient (BNV) | payer OTHER, SELFPAY | PROVIDERS: Emergency Provider Emergency Medicine; Visit Provider Internal Medicine Cardiovascular Disease | DX: R00.0 Tachycardia, unspecified (principal) | CPT/HCPCS: 93010 ==

== ENCOUNTER → 2025-09-12 05:39 | Outpatient (BNV) | payer OTHER, SELFPAY | PROVIDERS: Emergency Provider Emergency Medicine; Visit Provider Radiology Diagnostic Radiology | DX: K57.32 Diverticulitis of large intestine without perforation or abscess without bleeding (principal); S80.01XA Contusion of right knee, initial encounter; M25.461 Effusion, right knee; M17.11 Unilateral primary osteoarthritis, right knee; Z04.3 Encounter for examination and observation following other accident; J98.4 Other disorders of lung | CPT/HCPCS: 70450; 71046; 73562; 74176 ==

== ENCOUNTER → 2025-09-12 19:42 | Outpatient (BNV) | payer OTHER, SELFPAY | PROVIDERS: Admitting Provider Internal Medicine; Emergency Provider Emergency Medicine | DX: S80.01XA Contusion of right knee, initial encounter (principal); M25.461 Effusion, right knee; W19.XXXA Unspecified fall, initial encounter; S80.10XA Contusion of unspecified lower leg, initial encounter | CPT/HCPCS: 99222; 99232 ==

== ENCOUNTER → 2025-09-12 19:42 | Outpatient (BNV) | payer OTHER, SELFPAY | PROVIDERS: Admitting Provider Internal Medicine; Emergency Provider Emergency Medicine; Visit Provider Psychiatry & Neurology Neurology | DX: G25.0 Essential tremor (principal); G25.81 Restless legs syndrome | CPT/HCPCS: 99222 ==

== ENCOUNTER → 2025-09-12 19:42 | Outpatient (BNV) | payer OTHER, SELFPAY | PROVIDERS: Admitting Provider Internal Medicine; Emergency Provider Emergency Medicine; Visit Provider Nurse Practitioner Family | DX: K57.92 Diverticulitis of intestine, part unspecified, without perforation or abscess without bleeding (principal); N17.9 Acute kidney failure, unspecified; S80.01XA Contusion of right knee, initial encounter; E87.6 Hypokalemia; M25.461 Effusion, right knee; W19.XXXA Unspecified fall, initial encounter | CPT/HCPCS: 99222; 99232; 99239 ==

== ENCOUNTER 2025-09-15 06:38 | Outpatient (REF) | payer OTHER, SELFPAY ==
--- OUTSIDE RECORDS SUMMARY | 2024-04-26 10:15 | XMS_ITS ---
Author Organization [facility] Address [address] [place] [address] Care Team Providers Care Yarn Tester Name Role Phone Raven Lyons Primary Care Provider Bibi Flores Unavailable [phone] Medications Medication SIG (Take, Route, Frequency, Duration) [...] Duration: 30 days Active Estradiol Active Nystatin 637024 UNIT/GM Externally Active Encounters Encounter Location Date Provider Diagnosis [facility] [place] [address] [place] [address] 04/26/2024 Bibi Siddiqi Plan Of Treatment Next Appt Details Provider Name:Bibi whitaker, 10/25/2025 02:00:00 PM, [address] [place], [address], Progress Notes * Sharon NUGENT RDOB: [birth year] (75 yo F)Acc No.[id number]:04/26/2024 Progress Note Patient: Sharon IRWIN Provider: Ryne Siddiqi DPM :1950 A ge:74 Y S ex:Female Date:04/26/2024 Address:[address] [place] [address], [address], [facility] Pcp:Raven Lyons Subjective: * Chief Complaints: * [...] , Taking Estradiol Cream , Taking Nystatin 690408 UNIT/GM Powder Externally , Taking Crestor 5 [...] 0 04/26/2024 Generated for Lucero Urbina/Bebeto on: 1 11/16/2024 06:42 AM EST History and Physical Notes * HPI (History of Present Illness) Category Sub-Category Detail Notes Category Not es At Risk footcare Pt States Last PCP Visit: Date:: 06/30/20 23
--- OUTSIDE RECORDS SUMMARY | 2024-10-07 06:00 | XMS_ITS ---
[facility] Address [address] [place] [address] Care Team Providers Care Propellant Charge Zone Assembler Name Role Phone Raven Lyons Primary Care Provider Bibi Flores Unavailable [phone] Medications Medication SIG (Take, Route, Frequency, Duration) [...] day; Duration: 14 day(s) 09/18/2021 Active Nystatin 532649 UNIT/GM Externally Active Crestor 5 MG Orally [...] Active Encounters Encounter Location Date Provider Diagnosis [facility] [address] [address] 10/07/2024 Bibi Siddiqi Plan Of Treatment Next Appt Details Provider Name:Bibi whitaker, 10/25/2025 02:00:00 PM, [address] [place] [address], [phone], Progress Notes * Sharon NUGENT RDOB: [birth year] (75 yo F)Acc No.[id number]:10/07/2024 Progress Note Patient: Sharon IRWIN Provider: Ryne Siddiqi DPM :1950 A ge:74 Y S ex:Female Date:10/07/2024 Address:[address] [place] [address], [facility] [address], [place] [id number] Pcp:Raven Lyons Subjective: * Chief Complaints: * [...] , Taking Estradiol Cream , Taking Nystatin 375976 UNIT/GM Powder Externally , Taking Hydrocortisone 2.5 [...] 0 10/07/2024 Generated for Lucero porter/Day/Bebeto on: 11/16/2024 06:42 AM EST History and Physical Notes * HPI (History of Present Illness) Category Sub-Category Detail Notes Category Not es At Risk footcare Pt States Last PCP Visit: Date:: 06/30/20 23
--- OUTSIDE RECORDS SUMMARY | 2024-10-07 09:00 | XMS_ITS ---
Author Organization [facility] Address [address] [place] [address] Care Team Providers Care Vice President Integrated Name Role Phone Raven Lyons Primary Care Provider Bibi Flores [phone] Encounters Encounter Location Date Provider Diagnosis [facility] [address] [place] [address] 10/07/2024 Bibi Siddiqi Plan Of Treatment Next Appt Details Provider Name:Bibi whitaker, 10/25/2025 02:00:00 PM, [address] [place], [address], Progress Notes * Sharon NUGENT RDOB: [birth year] (75 yo F)Acc No.[id number]:10/07/2024 Progress Note Patient: Sharon IRWIN Provider: Ryne Siddiqi DPM :1950 A ge:74 Y S ex:Female Date:10/07/2024 Address:[address] [facility], [address], [place], [place] Pcp:Raven Lyons Subjective: * Chief Complaints: * * Medical History: Objective: * Vitals: Assessment: Plan: * Treatment: * Images: * The named appointment provid er may or may not be the originator of this progress note, and it is not deemed complete until electronically signed by the appointment provider. Sign off status: Pending * Provider: Ryne Siddiqi DPM Date: 0 10/07/2024 Generated for Lucero porter/Day/Bebeto on: 1 11/16/2024 06:41 AM EST
--- OUTSIDE RECORDS SUMMARY | 2024-10-25 09:30 | XMS_ITS ---
Author Organization [facility] Address [address] [place] [address] Care Team Providers Care Computer Game Tester Name Role Phone Raven Lyons Primary Care Provider Bibi Flores Unavailable [phone] Medications Medication SIG (Take, Route, Frequency, Duration) Notes Start Date End Date Status traMADol HCl 50 MG 1 tablet as needed Orally Every 6 hours; Duration: 14 days 09/30/2021 Active MRI . . . Left foot WO contrast Dx Metatarsalgia of left foot - M77.42 09/23/2021 Not-Taking Medrol 4 MG as directed Orally 09/18/2021 Not-Taking Orthopedic Extra Depth Shoes With Custom Heat Molded Multidensity Innersoles as directed Wear Daily; Duration: as needed 07/08/2022 Active Ketoconazole 2 % APPLY DAILY TO SKIN TO AFFECTED AREA EVERY DAY FOR 30 DAYS; Duration: 30 Active Ciclopirox Olamine 0.77 % 1 application to affected area Externally to feet Twice a day; Duration: 30 days Active Carvedilol 25 MG 1 tablet with food Orally Twice a day; Duration: 30 day(s) Active Ciclopirox Olamine 0.77 % 1 application to affected area Externally Twice a day to effected areas on feet; Duration: 30 days 04/12/2021 Active Hydrocortisone 2.5 % as directed Externally to feet Twice a day; Duration: 30 days Active Lotrimin AF 2 % 1 application Externally Twice a day; Duration: 14 day(s) 09/18/2021 Active Vitamin D 1000 UNIT Orally Active buPROPion HCl 300mg 1 daily Active Crestor 5 MG Orally Not-Jeremy ing Nystatin 727748 UNIT/GM Externally Active Estradiol Active Levothyroxine Sodium 112 MCG Orally Once a day Active ARIPiprazole 5 MG Orally Once a day Active Tylenol 500 mg Activ e OXcarbazepine 150 Mg AM/ 300 mg PM Orally Twice a day Active hydrOXYzine HCl 25 MG 1 tablet as needed Orally Active Losartan Potassium 100 MG 1 tablet Orally Once a day; Duration: 30 day(s) Active Multivitamin once a day Active Aspir-81 Once a day Active Torsemide 20 MG as directed Orally Active Trelegy Ellipta Not- Taking Atorvastatin Calcium 80 MG Orally 1 @ hs Not-Taking Chlorthalidone 25 MG Orally Once a day Not-Taking Farxiga Active Adderall Active Losartan Potassium 100 MG Orally Once a day Not-Taking Prazosin HCl 2 MG 2 capsules @ HS Orally Not-Taking Clotrimazole-Betametha sone 1-0.05 % 1 application Externally Twice a day; Duration: 30 days 09/02/2019 Not-Taking Vitamin B 12 1,000mcg Not-Taking baclofin 10 mg once a day Not- Taking Ciclopirox Olamine 0.77 % 1 application to affected area Externally to feet Twice a day; Duration: 30 days Not-Taking Advair HFA 230-21 MCG/ACT Inhalation Twice a day Not-Taking Baclofen 10 MG/20ML as directed Intrathecal Not-Taking Clopidogrel Bisulfate 75 MG Orally Once a day Not-Taking Metoprolol Succinate 25 MG Orally 2 x a day Not-Taking metFORMIN HCl Not-Ta lyle Terbinafine HCl 1 % 1 application Externally Once a day; Duration: 30 days 10/07/2023 Not-Taking Gabapentin 300 MG 1 capsule Orally Twice a day; Duration: 30 days 2 a day 3 at night 09/30/2021 Not-Taking Encounters Encounter Location Date Provider Diagnosis [facility] [place] [address] [place] [address] 10/25/2024 Bibi Siddiqi Plan Of Treatment Next Appt Details Provider Name:Bibi whitaker, 10/25/2025 02:00:00 PM, [address] [place] [address], [phone], Progress Notes * Sharon NUGENT RDOB: [birth year] (75 yo F)Acc No.[id number]:10/25/2024 Progress Note Patient: Sharon IRWIN Provider: Ryne Siddiqi DPM :1950 A ge:74 Y S ex:Female Date:10/25/2024 Address:[address] [place] [address], [facility] [address], [place] [phone] Pcp:Raven Lyons Subjective: * Chief Complaints: * [...] , Taking Estradiol Cream , Taking Nystatin 996813 UNIT/GM Powder Externally , Taking Hydrocortisone 2.5 [...] * Provider: Ryne Siddiqi DPM Date: 0 10/25/2024 Generated for Lucero porter/Day/Bebeto on: 11/16/2024 06:43 AM EST History and Physical Notes * HPI (History of Present Illness) Category Sub-Category Detail Notes Category Not es At Risk footcare Pt States Last PCP Visit: Date:: 06/30/20 23
--- OUTSIDE RECORDS SUMMARY | 2025-04-26 10:00 | XMS_ITS ---
Author Organization [facility] Address [address] [place] [address] Care Team Providers Care Batt Packer Name Role Phone Raven Lyons Primary Care Provider Bibi Flores [phone] Encounters Encounter Location Date Provider Diagnosis [facility] [address] [place] [address] 04/26/2025 Bibi Siddiqi Plan Of Treatment Next Appt Details Provider Name:Bibi whitaker, 10/25/2025 02:00:00 PM, [address] [place], [address], Progress Notes * Sharon NUGENT RDOB: [birth year] (75 yo F)Acc No.[id number]:04/26/2025 Progress Note Patient: Sharon IRWIN Provider: Ryne Siddiqi DPM :1950 A ge:75 Y S ex:Female Date:04/26/2025 Address:[address] [facility], [address], [place], [place] Pcp:Raven Lyons Subjective: * Chief Complaints: * * Medical History: Objective: * Vitals: Assessment: Plan: * Treatment: * Images: * The named appointment provid er may or may not be the originator of this progress note, and it is not deemed complete until electronically signed by the appointment provider. Sign off status: Pending * Provider: Ryne Siddiqi DPM Date: 0 04/26/2025 Generated for Lucero porter/Day/Bebeto on: 1 11/16/2024 06:42 AM EST
--- OUTSIDE RECORDS SUMMARY | 2025-06-23 07:30 | XMS_ITS ---
Author Organization [facility] Address [address] [place] [address] Care Team Providers Care Chip Loft Worker Name Role Phone Raven Lyons Primary Care Provider Bibi Flores Unavailable [phone] Medications Medication SIG (Take, Route, Frequency, Duration) [...] DAYS; Duration: 30 Active Estradiol Active Nystatin 949601 UNIT/GM Externally Active Hydrocortisone 2.5 % as [...] Active Encounters Encounter Location Date Provider Diagnosis [facility] [address] [address] 06/23/2025 Bibi Siddiqi Plan Of Treatment Next Appt Details Provider Name:Bibi whitaker, 10/25/2025 02:00:00 PM, [address] [place] [address], [address], Progress Notes * Sharon NUGENT RDOB: [birth year] (75 yo F)Acc No.[id number]:06/23/2025 Progress Note Patient: Sharon IRWIN Provider: Ryne Siddiqi DPM :1950 A ge:75 Y S ex:Female Date:06/23/2025 Address:[address] [place] [address], [facility] [address], [place] [phone] Pcp:Raven Lyons Subjective: * Chief Complaints: * [...] , Taking Estradiol Cream , Taking Nystatin 029794 UNIT/GM Powder Externally , Taking Hydrocortisone 2.5 [...] Date: 1 Generated for Lucero porter/Day/Bebeto on: 11/16/2024 06:41 AM EST History and Physical Notes * HPI (History of Present Illness) Category Sub-Category Detail Notes Category Not es At Risk footcare Pt States Last PCP Visit: Date:: 02/09/20 25
--- OUTSIDE RECORDS SUMMARY | 2025-09-12 23:59 | XMS_ITS | Continuity of Care Document ---
Author Organization [facility] Address [address] [place] [address]- Care Team Providers Care Projection Printer Name Role Phone Joy CLAUDIO, Raven Vieyra Primary Care Physic claire Encounter [facility] Date(s): 09/05/25 - 09/12/25 [facility] [address] [place] [address]- Encounter Diagnosis Hoarseness(Discharge Diagnosis) - 09/05/25 AMS (altered mental status)(Discharge Diagnosis) - 09/05/25 UTI (urinary tract infection)(Discharge Diagnosis) - 09/05/25 Essential hypertension(Discharge Diagnosis) - 09/05/25 Cellulitis(Discharge Diagnosis) - 09/05/25 Attending Physician: Peace Moore NP Encounter Type: Office Visit Allergies, Adverse Reactions, Alerts Substance Criticality Severity [...] Jostin rded influenza virus vaccine, inactivated 3 9/7/18 Re corded influenza virus vaccine, inactivated 07/01/17 Jostin rded influenza virus vaccine, inactivated 07/28/16 Give n influenza virus vaccine, inactivated 4 06/14/15 Re corded influenza virus vaccine, inactivated 5 06/29/14 Gi maricarmen RSV vaccine preF3, recombinant 10/03/24 Recorded Influenza Virus Vaccine (oldterm) 08/22/22 Recorde d Influenza Virus Vaccine (oldterm) 07/04/20 Recorde d Influenza Virus Vaccine (oldterm) 06/04/19 Recorde d [id number] bivalent booster vax 08/22/22 Recorded SARS-CoV-2 (COVID-19) [...] tetanus-diphtheria toxoids (Td) 04/02/04 Recorded 1Result Comment: [facility]: [id number] 2Result Comment: [facility] [id number] 3Result Comment: [06/01/2018] jessica 4Result Comment: [06/15/2015] jessica 5Admin Note: DECLINED 6Result Comment: dose #1 7Admin Note: Jessica 8Result Comment: [03/18/2018] jessica 9Admin Note: Jessica 10Result Comment: [06/15/2015] jessica 11Admin Note: CDC info given Medications Adjustable [...] 6 Refills, Maintenance, 08/23/24 7:55:00 AM EST, [facility], 25, INHALE 2 PUFFS BY MOUTH [...] 12:10:00 PM EST, Route to Pharmacy Electronically, [facility], 162, cm, 07/15/24 10:31:00 EDT, Height, 110.7,kg, 05/24/24 10:13:00 EDT, Dry Weight Start Date: 07/26/24 Status: Ordered Medication Dispense Status: Completed Quantity: 90.0 Unit: tablet Total Allowed Fills: 1 Fills Dispensed: 0 amLODIPine 10 mg oral tablet 1 tablet, By Mouth, Daily, # 90 tablet, 3 Refills, Maintenance, 06/12/25 9:43:00 AM EDT, [id number], 162, cm, 06/06/25 10:09:00 EDT, Height, 114.9, kg, 03/15/25 14:52:00 EDT, Dry Weight Start Date: 06/12/25 Status: Ordered Medication Dispense Status: Completed Quantity: 90.0 Unit: tablet Total Allowed Fills: 1 Fills Dispensed: 0 ARIPiprazole 10 mg oral tablet 10 mg, 1, tablet, By Mouth, Daily, # 90 tablet, Refills 3, Tot. Refills 3, Maintenance, 07/16/23 4:34:00 PM EDT, Route to Pharmacy Electronically, [facility], Partial fill upon patient request [...] 11 Refills, Maintenance, 08/15/25 12:04:00 PM EST, [facility]/pharmacy #[id number], 162, cm, 08/15/25 11:35:00 EST, [...] Replace Required Details, Route to Pharmacy Electronically, [facility], 160, cm, 02/19/23 13:19:00 EDT, [...] :56:00 PM EDT, Route to Pharmacy Electronically, [id number], [facility]/pharmacy #[id number], 162, cm, 05/10/25 16:25:00 EDT, Height, 114.9, kg, 03/15/25 14:52:00 EDT, Dry Weight Start Date: 05/12/25 Status: Ordered Medication Dispense Status: Completed Quantity: 10.2 Unit: each Total Allowed Fills: 12 Fills Dispensed: 0 buPROPion 300 mg/24 hours (XL) oral tablet, extended release 1 tablet, By Mouth, Daily in AM, # 90 tablet, 3 Refills, Maintenance, 07/15/23 5:59:00 PM EDT, [facility], 162, cm, 06/23/23 15:01:00 EDT, Height, 120.9, kg, 06/23/23 14:43:00 EDT, Dry Weight Start Date: 07/15/23 Status: Ordered Medication Dispense Status: Completed Quantity: 90.0 Unit: tablet Total Allowed Fills: 4 Fills Dispensed: 0 carvedilol 25 mg oral tablet 1, tablet, By Mouth, 2 times a day, # 180 tablet, Refills 3, Maintenance, 06/12/25 12:18:00 PM EDT, Route to Pharmacy Electronically, [facility], 162, cm, 06/06/25 10:09:00 EDT, [...] 11 Refills, Maintenance, 04/20/23 7:44:00 AM EDT, [facility], 60, APPLY TO AFFECTED AREA TOPICALLY [...] Refills, Maintenance, 01/13/24 3:04:00 PM EDT, Gel, [facility]/pharmacy #[id number], Partial fill upon patient request [...] 9:45:00 AM EDT, Route to Pharmacy Electronically, [id number], 162, cm, 05/10/25 16:25:00 EDT, Height, 114.9, kg, 03/15/25 14:52:00 EDT, Dry Weight Start Date: 06/01/25 Status: Ordered Medication Dispense Status: Completed Quantity: 90.0 Unit: tablet Total Allowed Fills: 1 Fills Dispensed: 0 Farxiga 10 mg oral tablet 1 tablet, By Mouth, Daily, # 90 tablet, 3 Refills, Maintenance, 08/22/24 8:27:00 AM EST, [id number], 162, cm, 07/15/24 10:31:00 EDT, Height, 110.7, kg, 05/24/24 10:13:00 EDT, Dry Weight Start Date: 08/22/24 Status: Ordered Medication Dispense Status: Completed Quantity: 90.0 Unit: tablet Total Allowed Fills: 1 Fills Dispensed: 0 fluticasone 50 mcg/inh nasal spray See Instructions, INSTILL 1 SPRAY IN EACH NOSTRIL TWO TIMES A DAY, # 48 Gm, 10 Refills, Maintenance, 02/10/25 12:04:00 PM EDT, [facility], 90, INSTILL 1 SPRAY IN EACH [...] tablet, 3 Refills, 07/15/23 5:58:00 PM EDT, [facility], 162, cm, 06/23/23 15:01:00 EDT, Height, 120.9, kg, 06/23/23 14:43:00 EDT, Dry Weight Start Date: 07/15/23 Status: Ordered Medication Dispense Status: Completed Quantity: 90.0 Unit: tablet Total Allowed Fills: 4 Fills Dispensed: 0 hydrOXYzine hydrochloride 50 mg oral tablet 1 tablet, By Mouth, 3 times a day, PRN NEEDED FOR ITCHING, # 90 tablet, 3 Refills, Maintenance, 08/15/25 12:00:00 PM EST, [facility]/pharmacy #[id number], 162, cm, 08/15/25 11:35:00 EST, [...] 11 Refills, Maintenance, 01/31/25 3:23:00 PM EDT, [place], [facility], Partial fill upon patient request [...] 6 Refills, Maintenance, 10/19/24 11:43:00 AM EST, [facility], 21, APPLY TOPICALLY IN BETWEEN [...] 0 Refills, Maintenance, 09/05/25 2:07:00 PM EST, [facility]/pharmacy #[id number], 162, cm, 08/15/25 11:35:00 EST, [...] Maintenance, Lipo-lymphedema , Juso's sensation chace's compressiongrade 15/20; size XL. R60.9, 06/20/24 6:06:00 PM EDT, Supply Start Date: 06/20/24 Status: Ordered Medication Dispense Status: Completed Quantity: 2.0 Unit: each Total Allowed Fills: 1 Fills Dispensed: 0 Indications: Edema, unspecified; losartan 25 mg oral tablet 1 tablet, By Mouth, Daily, # 30 tablet, 3 Refills, Maintenance, 06/26/25 8:10:00 AM EDT, [id number], 162, cm, 06/13/25 14:10:00 EDT, Height, 114.9, kg, 03/15/25 14:52:00 EDT, Dry Weight Start Date: 06/26/25 Status: Ordered Medication Dispense Status: Completed Quantity: 30.0 Unit: tablet Total Allowed Fills: 1 Fills Dispensed: 0 nystatin topical [id number] u/gm cream 1 applicator, Topically, 2 times a day, # 30 Gm, 5 Refills, Maintenance, 08/15/25 12:04:00 PM EST, [facility]/pharmacy #[id number], 1 applicator Topically 2 times [...] Maintenance, 06/16/25 4:26:00 PM EDT, Chew Tablet, [facility]/pharmacy #[id number], Partial fill upon patient request [...] 2 Refills, Maintenance, 10/19/24 11:33:00 AM EST, [facility], 162, cm, 10/14/24 13:20:00 EST, Height, 110.7, kg, 05/24/24 10:13:00 EDT, Dry Weight Start Date: 10/19/24 Status: Ordered Medication Dispense Status: Completed Quantity: 90.0 Unit: tablet Total Allowed Fills: 1 Fills Dispensed: 0 simethicone 125 mg oral capsule 1 capsule, By Mouth, 3 times a day after meals, PRN NEEDED FOR, # 90 capsule, 3 Refills, Maintenance, 05/26/25 10:05:00 AM EDT, [facility], 162, cm, 05/10/25 16:25:00 EDT, [...] 1 Refills, Maintenance, 07/31/25 7:50:00 AM EST, [id number], 162, cm, 06/13/25 14:10:00 EDT, Height, 114.9, kg, 03/15/25 14:52:00 EDT, Dry Weight Start Date: 07/31/25 Status: Ordered Medication Dispense Status: Completed Quantity: 180.0 Unit: tablet Total Allowed Fills: 1 Fills Dispensed: 0 Vitamin D3 1000 intl units oral tablet 1 tablet, By Mouth, Daily, # 60 tablet, 11 Refills, Maintenance, 06/06/25 12:23:00 PM EDT, [facility], 162, cm, 06/06/25 10:09:00 EDT, [...] Confirmed Active Right arm pain Confirmed Active *[facility] [phone] [employer] Francisca Jorge Confirmed Active Medicare annual wellness visit, subsequent Confirmed Active Prediabetes Confirmed Active Primary osteoarthritis of knees, bilateral Confirmed Active Resting tremor Confirmed Active Scoliosis of lumbar spine Confirmed Active Severe obesity Confirmed Active 1likely REM dominant; has seen sleep center; CPAP Diagnosis Diagnosis Type Effective Dates Health Status Clinical Service Informant Hoarseness Discharge Diagnosis 09/05/25 AMS (altered mental status) Discharge Diagnosis 09/05/25 UTI (urinary tract infection) Discharge Diagnosis 09/05/25 Essential hypertension Discharge Diagnosis 09/05/25 Cellulitis Discharge Diagnosis 09/05/25 Social History Social History Type Response Smoking Status Former smoker, quit more than 30 days ago; Other: quit 2014; Number of years: 40; entered on: 02/24/19 Sexual Orientation Self described orien tation: ; Straight or heterosexual Sex Sex Representation Female (finding) Patient Care team information Care Team Personnel Name: Radha Silva RN Position: S RN Member Role: Primary Care Nurse Name: Florecita Hurst RN Position: S RN Member Role: Primary Care Nurse Name: Danilo Orosco RN Position: [facility] RN Member Role: Primary Care Nurse Name: Claire Valencia RN Position: S RN Member Role: Primary Care Nurse Name: Joy CLAUDIO, Raven Vieyra Position: [facility] Physician - Primary Care Member Role: PCP Address: [address] [place] [address] Telecom: Name: William DEL CASTILLO, Melly Danielle Position: [facility] RN Member Role: Primary Care Nurse Name: Mandie Fofana RN Position: [facility] RN Member Role: Primary Care Nurse Care Team Related Persons Name: ASHISH CASTRO Name: FERCHO BARRERA Name: TEETEE BERGER Name: FERCHO MULLEN Name: WALE TINSLEY Insurance Providers Guarantor name: SERGO CELINE Health Plan Information #: 1 Payer: [employer] Payer Identifier: NA Member Number: [id number] Group Number: [id number] Subscriber Identifier: [id number] Relationship to Subscriber: self Coverage Type: Medicare Managed Care (Includes Medicare Advantage Plans) Coverage Verification Date: NA Telecom: NA Address:
[2025-09-15 06:42] LABS: MANUAL DIFF FLAG NO
--- OUTSIDE RECORDS SUMMARY | 2025-09-15 06:42 | XMS_ITS | Encounter Summary ---
Author Organization [facility] Address [address] [place] [address] Phone Care Team Providers Care Switch Coupler Name Role Phone Raven Lyons MD Primary Care Provider + Encounter Details Date Type Department Care Team (Late st Contact Info) Description 01/28/2021 Orders Only [facility] [address] [place] [phone] Provider, MD Amaury Social History Tobacco Use [...] on filedocumented in this encounter Care Teams Switch Coupler Relationship Specialty Start Date End Date Raven Lyons MD [address] [place], [place] [phone] PCP - General Dental Vessel Scrapper 06/03/23 documented as of this encounter
--- OUTSIDE RECORDS SUMMARY | 2025-09-15 06:42 | XMS_ITS | Clinical Summary ---
Author Organization [facility] Address [address] [facility] [address] [place] [address] Phone Care Team Providers Care Plastic Parts Fabricator Name Role Phone Raven Lyons MD Primary [...] ER 650 mg tablet,extend release Active Umeclidinium [place] (Incruse Ellipta) 62.5 MCG/INH aerosol powder Incruse Ellipta 62.5 mcg/actuation powder for inhalation INHALE 1 PUFF BY MOUTH EVERY 24 HOURS Active Tiotropium [place] Monohydrate (Spiriva Respimat) 1.25 MCG/ACT aerosol solution [...] PM EDT) Hemoglobin A1C 5.7(H) (4.0-5.6) % [facility] Comment: MONITORING: In known diabetic patients, hemoglobin A1c targets should be discussed with health care provider. DIAGNOSTIC USE: The [place] Diabetes Association (ADA) and the World Health [...] Supplement 1 Testing performed or reported by [facility], a Service of [facility], [address] [place] [address] Enoch Wang MD, Homeopathic Doctor [facility]# [id number] Blood specimen (specimen) Venous blood / Unknown 06/03/2023 3:30 PM EDT 06/03/2023 3:39 PM EDT us Slim Chua MD LAB BLOOD ORDERABLES Final Re sult [facility] from Last 3 Months or Most Recently Relevant to Health Maintenance Insurance [facility] ([id number]) [facility] ([id number]) Care Teams Plastic Parts Fabricator Relationship Specialty Start Date End Date Raven Lyons MD [address] [place] [id number] PCP - General Dental Second Hand 06/03/23
--- OUTSIDE RECORDS SUMMARY | 2025-09-15 06:42 | XMS_ITS | Continuity of Care Document ---
Author Organization [employer] [facility], [facility] Address [address] [place] [phone] Care Team Providers Care Commercial Front Load Operator Name Role Phone TIMOTHY WAKEFIELD Primary Care Provider HIM CCA OTHER Assessment No assessment recorded. Plan of Treatment Reminders Order Date Submit Date Provider Last Modified By Organization Details Last Modified Time Details Appointments None recorded. Lab rapid SARS CoV 2 Ag, QL IA, respiratory specimen [address] [facility], [address] [place] [address], [id number] 21:56:58 rapid flu (A+B) [address] [facility], [address] [place] [address], [id number] 21:51:59 Referral None recorded. Procedures None recorded. [...] Organization Details Recorded Time Lumbosacral radiculopat hy [id number] Channing Myles MD [address] [place] [address],[address], [place], [address], [employer] 16:20:58 Osteoarthri tis of hip 432672070 Channing Myles MD [address] [place] [address],[address], [place], [address], [employer] 16:21:35 Osteoarthri tis of left knee joint 0542434172348 09 Active Magdiel Myles MD [address] [place] [address],[address], [place], [address], [place] [facility] [employer] 5 16:21:44 Osteoarthri tis of right knee joint 4465515628360 00 Active Magdiel Myles MD [address] [place] [address],[address], [place], [address], [place] [facility] [employer] 16:21:50 Scoliosis of lumbar spine 367787164 Active Magdiel Myles MD [address] [place] [address],[address], [place], [address], [place] [employer] 16:21:58 Resting tremor 95589758 Active Magdiel Myles MD [address] [place] [address],[address], [place], [address], [place] [facility] [employer] 16:22:07 Hypothyroid ism 57452394 Active Magdiel Myles MD [address] [place] [address],[address], [place], [address], [place] [facility] [employer] 16:23:04 Asthma 211847122 Active 2020 Magdiel Myles MD [address] [place] [address],[address], [place], [address], [place] [facility] [employer] 5 16:20:12 Chronic kidney disease stage 2 275161257 Active 2020 Magdiel Myles MD [address] [place] [address],[address], [place], [address], [place] [facility] [employer] 16:20:16 Essential hypertensio n 97575622 Active 2020 Magdiel Myles MD [address] [place] [address],[address], [place], [address], [place] [facility] [employer] 16:20:19 Hyperlipide robin 97986432 Active 2020 Magdiel Myles MD [address] [place] [address],[address], [place], [address], [place] [employer] 16:20:22 Hyperthyroi dism 77901715 Active 2020 Magdiel Myles MD [address] [place] [address],[address], [place], [address], [employer] [place] [facility] [employer], [employer] 16:20:29 Edema 172120796 Active 2020 Magdiel Myles MD [address] [place] [address],[address], [place], [address], [employer], [employer] 16:21:02 Mixed anxiety and depressive disorder 601380938 Active 2020 Magdiel Myles MD [address] [place] [address],[address], [place], [address], [employer] 16:21:07 Obstructive sleep apnea syndrome 16557692 Active 2020 Magdiel Myles MD [address] [place] [address],[address], [place], [address], [employer] 16:21:16 Osteoarthri tis of knee 043752786 Active 2020 Magdiel Myles MD [address] [place] [address],[address], [place], [address], [employer] 16:21:39 Osteoarthri tis of right hip joint 4783049367912 07 Active 2020 Magdiel Myles MD [address] [place] [address],[address], [place], [address], [employer] 16:21:47 Problem Notes None recorded. Medical Equipment None Reported. Allergies Allergen ID Allergen Name Allergen Category Reaction Reaction Severity Criticality Documentation Date Start Date Code Code System Note Provider Name and Address Organization Details Recorded Time 51795 lisinopri l medicatio n Not available Not available Not available 10/10/2024 83690 RxNorm Not Available [employer] 11:33:21 06280 Seroquel medicatio n Not available Not available Not available 10/10/2024 90102 RxNorm Not Available [employer] [facility] [employer] 5 11:33:21 65192 Claritin medicatio n Not available Not available Not available 10/10/2024 60038 6 RxNorm Not Available [employer] 5 11:33:21 19764 codeine medicatio n Not available Not available Not available 04/21/2025 2670 RxNorm Not Available [employer] - production 15:38:18 76687 Zoloft medicatio n Not available Not available Not available 07/24/2025 57076 RxNorm Not Available [facility] - production 15:48:26 85926 loratadin e medicatio n Not available Not available Not available 07/24/2025 07931 RxNorm Not Available [employer] - [employer] - prod 17:09:57 52307 quetiapin e medicatio n Not available Not available Not available 07/24/2025 69848 RxNorm Not Available [facility] - External Data [employer] - prod 5 17:09:57 86978 sertralin e medicatio n Not available Not available Not available 07/24/2025 43312 RxNorm Not Available [employer] - [employer] - prod 17:09:57 22372 amoxicill in medicatio n Not available Not available Not available 09/09/2025 723 RxNorm Raisa Tejeda MD [address] [place] [address],[address], [place], [address] [place] [address] - [employer] [facility] 5 10:51:44 10476 methimazo le medicatio n rash mild low 09/12/20252024 6835 RxNorm Not Available [employer] - External Data [employer] - prod 5 08:47:48 98622 potassium chloride medicatio n Not available Not available Not available 09/12/20252024 8591 RxNorm Not Available [employer] - [employer] - prod 5 08:47:48 94480 propranol ol medicatio n Not available Not available high 09/12/20252024 8787 RxNorm Not Available [employer] - [employer] - prod 08:47:48 Medications Name Sig Start Date Stop Date [...] 132/70 mm[Hg] Not Available [employer] [facility] [employer] 17:09:10 Social History None recorded. Functional Status None recorded. Mental Status None recorded. Family History Nothing Reported. Medical History No medical history recorded. Gynecological HistoryNo gynecological history recorded. Obstetrics History GPAL:G 0 P 0 0 0 0 Past Encounters Encounter ID Performer Location Encounter Start Date Encounter Closed Date Diagnosis/Indication Diagnosis SNOMED-CT Code Diagnosis ICD10 Code Diagnosis IMO Codes Diagnosis Note [id number] Brigido Antony MD [facility] [address] [phone] 06/28/2025 10:00:03 06/28/2025 15:06:24 Dermal mycosis 43917718 B36.9 01401 Eruption 194684977 R21 [id number] Tatiana Hartley MD [address] [address] 07/24/2025 17:09:06 07/25/2025 15:42:41 Viral upper respiratory tract infection 456827823 J06.9 [id number] 75 year old female being evaluated for [...] assessment and plan as documented by the telecommunications specialist. I provided real-time medical direction for this [...] Lyons Member ID Guarantor Name 07/24/2025 1 [facility] - DOS ON OR AFTER 2022 - DUAL ELIGIBLE - RESIDENTIAL OPTIONS AND ONE CARE (MEDICARE REPLACEMENT/ADV ANTAGE - HMO) Sharon Nugent [id number] Sharon Nugent Notes Date Note Type Note [...] PMH Reviewed at 07/24/2025: Allergies Reviewed at 07/24/2025:48 Comments: 75 y.o female complains of Ear [...] signs of when to seek emergency care. Physical Medicine Specialist Organization Information for [facility] Business Legal Name: [employer]. Address: [address] [place] [address], Property Specialist: Americo Burgos MD CLIA No.: [id number] Physical Medicine Specialist POC Test Results from [facility] Rapid influenza antigen (17:04:57) Flu: - Rapid COVID antigen (17:04:58) COVID: - ................... ................... ................... ................... ................... ................... ................... ........ Physical Medicine Specialist Note From [facility]: Dispatched to the [...] conducted and results uploaded to Pts portal. [facility] consulted. Pt provided reassurance. Red flags discussed. ALL times are approx. [facility] Lab Orders: rapid SARS CoV 2 Ag, QL IA, respiratory specimen: Performed rapid flu (A+B): Performed ................... ................... ................... ................... ................... ................... ................... ........ [facility] Consulted: Tatiana Hartley ................... ................... ................... ................... ................... ................... ................... ........ Disposition: Fulfilled Tatiana Hartley MD [address] [facility], [place], [address], [employer], [facility] 07/24/2025 21:08:47 OBGyn Episode No OBEpisode recorded.
--- OUTSIDE RECORDS SUMMARY | 2025-09-15 06:42 | XMS_ITS | Encounter Summary ---
Author Organization [facility] Address [address] [place] [address] Phone Care Team Providers Care Bullet Casting Operator Name Role Phone Raven Lyons MD Primary Care Provider + Encounter Details Date Type Department Care Team (Late st Contact Info) Description 03/04/2023 Telephone [facility] [address] [place] [address] Jemima Gordillo Social History Tobacco [...] on filedocumented in this encounter Care Teams Bullet Casting Operator Relationship Specialty Start Date End Date Raven Lyons MD [address] [place] [address] PCP - General Dental Junior Programmer 06/03/23 documented as of this encounter
--- OUTSIDE RECORDS SUMMARY | 2025-09-15 06:42 | XMS_ITS | Continuity of Care Document ---
Author Organization [facility] Continuity Control [facility] Address [address] [place] [address] Care Team Providers Care Commercial Loan Administrator Name Role Phone TIMOTHY WAKEFIELD Primary Care Provider [phone] HIM CCA OTHER Assessment No assessment recorded. Plan of Treatment Reminders Order Date Submit Date Provider Last Modified By Organization Details Last Modified Time Details Appointments None recorded. Lab culture, urine 2024 [facility] (Centralized Electronic Ordering - All Locations), Patient Can Go To The Location Of Their Choice, [facility] 20:05:55 urinalysis, dipstick 2024 [facility], [address] [place] [address], [address] 12:29:28 BMP, serum or plasma 2024 025 [facility], [address] [place] [address], [phone] 5 12:29:29 Referral None recorded. Procedures None recorded. Surgeries None recorded. Imaging None recorded. Medication Orders sulfamethox azole 800 mg-trimetho prim 160 mg tablet 2024 025 JUAN [id number], [address] [place], [address], 10:49:03 sulfamethox azole 800 mg-trimetho prim 160 mg tablet 2024 025 [id number], [address] [place], [address], 10:49:19 Patient TargetsNo targets recorded. Patient InstructionsNo instructions recorded. Reason for Referral None Reported. Results Created Date Observation Date Name Description Value Unit Range Abnormal Flag Note LastModifiedBy Organization Detail LastModifiedTime Result Notes None recorded. Problems Name Problem SNOMED Code Status Onset Date Resolution Date Notes Provider Name and Address Organization Details Recorded Time Lumbosacral radiculopat hy 1768758 Channing Myles MD [address] [place] [address],[address], [place], [address], [employer] 5 16:20:58 Osteoarthri tis of hip 648256036 Channing Myles MD [address] [place] [address],[address], [place], [address], [employer] 16:21:35 Osteoarthri tis of left knee joint 8081153681710 09 Channing Myles MD [address] [place] [address],[address], [place], [address], [employer] 5 16:21:44 Osteoarthri tis of right knee joint 8501771263958 00 Channing Myles MD [address] [place] [address],[address], [place], [address], [employer] 16:21:50 Scoliosis of lumbar spine 553805005 Channing Myles MD [address] [place] [address],[address], [place], [address], [facility] [place] [employer] 16:21:58 Resting tremor 43374144 Channing Myles MD [address] [place] [address],[address], [place], [address], [facility] [place] [employer] 5 16:22:07 Hypothyroid ism 88838059 Channing Myles MD [address] [place] [address],[address], [place], [address], [facility] [place] [employer] 5 16:23:04 Asthma 346874230 Active 2020 Magdiel Myles MD [address] [place] [address],[address], [place], [address], [facility] [place] [facility] [employer] 16:20:12 Chronic kidney disease stage 2 689152317 Active 2020 Magdiel Myles MD [address] [place] [address],[address], [place], [address], [facility] [place] [facility] [employer] 16:20:16 Essential hypertensio n 73715721 Active 2020 Magdiel Myles MD [address] [place] [address],[address], [place], [address], [place] [facility], [employer] 16:20:19 Hyperlipide robin 84106591 Active 2020 Magdiel Myles MD [address] [place] [address],[address], [place], [address], [facility] [place] [facility] [employer] 16:20:22 Hyperthyroi dism 97860991 Active 2020 Magdiel Myles MD [address] [place] [address],[address], [place], [address], [place] [facility] [employer] 16:20:29 Edema 186038570 Active 2020 Magdiel Myles MD [address] [place] [address],[address], [place], [address], [facility] [place] [facility], [employer] 16:21:02 Mixed anxiety and depressive disorder 658894037 Active 2020 Magdiel Myles MD [address] [place] [address],[address], [place], [address], [facility] [place] [facility] [employer] 16:21:07 Obstructive sleep apnea syndrome 08565457 Active 2020 Magdiel Myles MD [address] [place] [address],[address], [place], [address], [facility] [place] [facility] [employer] 16:21:16 Osteoarthri tis of knee 981999030 Active 2020 Magdiel yMles MD [address] [place] [address],[address], [place], [address], [facility] [place] [facility] [employer] 16:21:39 Osteoarthri tis of right hip joint 6175744294180 07 Active 2020 Magdiel Myles MD [address] [facility],[address], [place], [address] [place] [address] - [employer] 16:21:47 Problem Notes None recorded. Medical Equipment None Reported. Allergies Allergen ID Allergen Name Allergen Category Reaction Reaction Severity Criticality Documentation Date Start Date Code Code System Note Provider Name and Address Organization Details Recorded Time 93996 lisinopri l medicatio n Not available Not available Not available 10/10/2024 46220 RxNorm Not Available [facility] - production 11:33:21 00861 Seroquel medicatio n Not available Not available Not available 10/10/2024 64632 [facility] 11:33[facility]21 96037 Claritin medicatio n Not available Not available Not available 10/10/2024 03846 6 [facility] Available [facility] 11:33:21 48339 codeine medicatio n Not available Not available Not available 04/21/2025 2670 RxNorm Not Available [facility] - production 15:38:18 43307 Zoloft medicatio n Not available Not available Not available 07/24/2025 73193 RxNorm Not Available [facility] - production 15:48:26 03717 loratadin e medicatio n Not available Not available Not available 07/24/2025 16815 RxNorm Not Available [facility] - [employer] - prod 5 17:09:57 19527 quetiapin e medicatio n Not available Not available Not available 07/24/2025 80050 RxNorm Not Available [facility] - [employer] - prod 5 17:09:57 26294 sertralin e medicatio n Not available Not available Not available 07/24/2025 01569 RxNorm Not Available [facility] - [employer] - prod 17:09:57 75984 amoxicill in medicatio n Not available Not available Not available 09/09/2025 723 RxNorm Raisa Tejeda MD [address] [facility],[address], [place], [address], [facility] - [employer], [employer] 10:51:44 18640 methimazo le medicatio n rash mild low 09/12/20252024 6835 RxNorm Not Available [facility] - [employer] - prod 08:47:48 75629 potassium chloride medicatio n Not available Not available Not available 09/12/20252024 8591 RxNorm Not Available [facility] - [employer] - prod 08:47:48 06398 propranol ol medicatio n Not available Not [...] Not Available Not Available No t Available Treleharriet Ellipta 200 mcg-62.5 mcg-25 mcg powder for [...] ICD10 Code Diagnosis IMO Codes Diagnosis Note [id number] Raisa Tejeda MD [facility] Medical [address] [address] 09/09/2025 10:20:28 09/11/2025 15:19:41 Urinary symptoms [id number] R39.9 [id number] Evaluation in the field was performed by my college president colleague, as noted above, I provided real-time [...] Lyons Member ID Guarantor Name 09/09/2025 1 [facility] - DOS ON OR AFTER 2022 - DUAL ELIGIBLE - SENIOR LIVING OPTIONS AND ONE CARE (MEDICARE REPLACEMENT/ADV ANTAGE - HMO) Sharon Nugent [id number] Sharon Nugent Notes Date Note Type Note [...] for tomorrow. I provided information on the [facility] provider response time and advised the patient and/or caregiver to monitor reported signs and symptoms. I discussed the warning signs of when to seek emergency care. Patient Scheduler Organization Information for Danilo Larsen Mobile Shareholder Legal Name: [employer]. Address: [address] [place] [address], Speeder Worker: Americo Burgos MD CLIA No.: [id number] Patient Scheduler POC Test Results from [employer] Urine Dipstick (10:21:19) Urine leukocytes: 125+ZAC Urine nitrites: +NIT Urine urobilinogen: 0.2URO Urine protein: -PRO Urine pH: 7.0pH Urine blood: +BLO Urine specific gravity: 1.010SG Urine ketones: -KET Urine bilirubin: -BRIAN Urine glucose: 1000+++GLU iSTAT Chem8+ (10:40:03) Na: 143mEq/L K: 3.3mEq/L Cl: 102mEq/L iCa: 1.29mmol/L TCO2: 28mmol/L Glu: 112mg/dL BUN: 23mg/dL Crea: 1.1mg/dL Hct: 43% Hb: 14.6g/dL Ammol/L Cartridge Number: [id number] .................. .................. .................. .................. .................. .................. .................. ............... Patient Scheduler Note From Danilo Larsen: [place] the home of a 75-year-old female patient with urinary issues. Patient has had some urinary burning, melodious odor and eight out of 10. Urinary pain for the last three days. Patient was hospitalized two weeks ago for a severe urinary tract infection. Patient is alert and oriented times four, strong equal fitness and wellness coordinator strength, symmetrical facial features, patient did have [...] this. Results were sent in to the [facility]. [facility] [place] in ordered bloodwork, this was done without incident and blood was run on an istat. Those results were forwarded into the [facility]. Doctor then ordered one tablet of Bactrim be given, and a prescription sent to the patient s pharmacy. Patient was warned of signs and symptoms, and went to call 911 that should things get worse. [facility] Lab Orders: culture, urine: Performed urinalysis, dipstick: Performed BMP, serum or plasma: Performed [facility] [place] Medication Orders: sulfamethoxazole 800 mg-trimethoprim 160 mg tablet: Administered .................. .................. .................. .................. .................. .................. .................. ............... [facility] Consulted: Raisa Tejeda .................. .................. .................. .................. .................. .................. .................. ............... Disposition: Fulfilled Raisa Tejeda MD [address] [place] [address],[address] [facility], [place], [address], [facility] 09/09/2025 12:15:25 OBGyn Episode No OBEpisode recorded.
--- OUTSIDE RECORDS SUMMARY | 2025-09-15 06:42 | XMS_ITS | Encounter Summary ---
Author Organization [facility] Address [address] [place] [address] Phone Care Team Providers Care Plastic Card Grader Cardroom Name Role Phone Raven Lyons MD Primary Care Provider + Encounter Details Date Type Department Care Team (Late st Contact Info) Description 01/28/2021 Documentation Only [facility] [address] [place] [address] Jena Roger MA Social History [...] Function Panel (External Lab) (01/07/2021) eGFR Non-Afr Beninese 56 eGFR 65 Calcium 10.4 mg/dL Albumin (Blood) 4.3 g/dL Creatinine 1.0 mg/dL Blood specimen (specimen) 01/07/2021 us Historical Provider LAB BLOOD ORDERABLES Erika l Result * Renal Function Panel (External Lab) (01/02/2021) Glucose 101 mg/dL BUN 18 mg/dL eGFR Non-Afr Beninese 57 eGFR 67 Sodium 140 mEq/L Potassium 4.6 mEq/L Chloride 101 Carbon Dioxide 27 mmol/L Creatinine 1.0 mg/dL Anion Gap 12 Blood specimen (specimen) 01/02/2021 us Historical Provider LAB BLOOD ORDERABLES Erika l Result documented in this encounter Visit Diagnoses Not on filedocumented in this encounter Care Teams Plastic Card Grader Cardroom Relationship Specialty Start Date End Date Raven Lyons MD [address] [place] [address] PCP - General Dental Tire Room Supervisor 06/03/23 documented as of this encounter
--- OUTSIDE RECORDS SUMMARY | 2025-09-15 06:42 | XMS_ITS | Continuity of Care Document ---
Author Organization [place] - [facility] Address [address] [place] [address] Care Team Providers Care Sheet Rock Taper Helper Name Role Phone TIMOTHY WAKEFIELD Primary Care Provider [phone] HIM CCA OTHER Assessment Encounter Date Assessment Date Assessment LastModified by Organization Details LastModified Time 08/01/2025 08/01/2025 I have reviewed and agree with the assessment and plan as documented by the salesperson burial plots. I provided real time medical direction for this encounter and was immediately available to provide additional phone based assistance as needed. History as noted by salesperson burial plots. Pt with history of Congestive Heart Failure, COPD/Asthma, Coronary Artery Disease, Hypertension, Hyperlipidemia, Urinary Tract Infections (UTI), Hypothyroidism, Gout, and PAD, scheduled for upcoming vascular surgery on her RLE. Pt reports about 10 days of a change in her voice with a hoarse and softer voice. She has had a mild, intermittent FIELD IRONWORKER cough but no nasal congestion or post nasal drip. She denies any sore throat or pain with swallowing. No SOB. No neck pain or fevers. Pt is a non smoker. Pt was already seen by [facility] on 07/24 for 4 days of a hoarse voice and was told that it was likely a viral URI. On exam, pt's voice is mildly hoarse, no stridor or drooling. Vitals normal, lungs clear. Exam of throat and neck normal. Rapid Covid/flu/strep all negative. Impression: Pt with a voice change management lead the last 10 days, no other significant [...] Lab rapid strep group A, throat 2024 [facility], [address] [place] [address], [address] 16:12:29 rapid SARS CoV 2 Ag, QL IA, respiratory specimen 2024 [facility], [address] [place] [address], [address] 16:12:45 rapid flu (A+B) 2024 [facility], [address] [place] [address], [address] 16:32:19 Referral None recorded. Procedures None recorded. [...] Organization Details Recorded Time Lumbosacral radiculopat hy 8463506 Channing Myles MD [address] [place] [address],[address], [place], [address], [employer] 16:20:58 Osteoarthri tis of hip 262860151 Channing Myles MD [address] [place] [address],[address], [place], [address], [employer] 16:21:35 Osteoarthri tis of left knee joint 2080726536930 09 Channing Myles MD [address] [place] [address],[address], [place], [address], [place] [facility] 16:21:44 Osteoarthri tis of right knee joint 9018002094707 00 Active Magdiel Myles MD [address] [place] [address],[address], [place], [address], [place] [facility] [employer] 16:21:50 Scoliosis of lumbar spine 113507099 Active Magdiel Myles MD [address] [place] [address],[address], [place], [address], [place] [facility], [employer] 16:21:58 Resting tremor 30437435 Active Magdiel Myles MD [address] [place] [address],[address], [place], [address], [place] [facility] [employer] 16:22:07 Hypothyroid ism 67890537 Active Magdiel Myles MD [address] [place] [address],[address], [place], [address], [place] [facility], [employer] 16:23:04 Asthma 065065088 Active 2020 Magdiel Myles MD [address] [place] [address],[address], [place], [address], [place] [facility], [employer] 16:20:12 Chronic kidney disease stage 2 953633647 Active 2020 Magdiel Myles MD [address] [place] [address],[address], [place], [address], [place] [facility] [employer] [employer] 16:20:16 Essential hypertensio n 25630972 Active 2020 Magdiel Myles MD [address] [place] [address],[address], [place], [address], [place] [facility], [employer] 16:20:19 Hyperlipide robin 34543010 Active 2020 Magdiel Myles MD [address] [place] [address],[address], [place], [address], [place] [facility], [employer] 5 16:20:22 Hyperthyroi dism 52421957 Active 2020 Magdiel Myles MD [address] [place] [address],[address], [place], [address], [place] [facility] [employer] [employer] 16:20:29 Edema 832550569 Active 2020 Magdiel Myles MD [address] [place] [address],[address], [place], [address], [place] [facility] [employer] [employer] 16:21:02 Mixed anxiety and depressive disorder 386061214 Active 2020 Magdiel Myles MD [address] [place] [address],[address], [place], [address], [place] [facility] [employer] 16:21:07 Obstructive sleep apnea syndrome 74064560 Active 2020 Magdiel Myles MD [address] [place] [address],[address], [place], [address], [place] [facility] [employer] [employer] 16:21:16 Osteoarthri tis of knee 712615373 Active 2020 Magdiel Myles MD [address] [place] [address],[address], [place], [address], [place] [facility], [employer] 16:21:39 Osteoarthri tis of right hip joint 7410092879911 07 Active 2020 Magdiel Myles MD [address] [place] [address],[address], [place], [address], [place] [facility] [employer] 16:21:47 Problem Notes None recorded. Medical Equipment None Reported. Allergies Allergen ID Allergen Name Allergen Category Reaction Reaction Severity Criticality Documentation Date Start Date Code Code System Note Provider Name and Address Organization Details Recorded Time 88462 lisinopri l medicatio n Not available Not available Not available 10/10/2024 52323 RxNorm Not Available [facility] - production 11:33:21 10164 Seroquel medicatio n Not available Not available Not available 10/10/2024 84445 RxNorm Not Available [facility] - production 11:33:21 08176 Claritin medicatio n Not available Not available Not available 10/10/202479526 6 RxNorm Not Available [facility] 5 11:33:21 74353 codeine medicatio n Not available Not available Not available 04/21/2025 2670 RxNorm Not Available [facility] 5 15:38:18 12775 Zoloft medicatio n Not available Not available Not available 07/24/2025 77466 RxNorm Not Available [facility] 5 15:48:26 47961 loratadin e medicatio n Not available Not available Not available 07/24/2025 27896 RxNorm Not Available [facility] - [employer] - prod 5 17:09:57 17455 quetiapin e medicatio n Not available Not available Not available 07/24/2025 24290 RxNorm Not Available [employer] - [employer] - prod 5 17:09:57 39360 sertralin e medicatio n Not available Not available Not available 07/24/2025 69889 RxNorm Not Available [employer] - [employer] - prod 5 17:09:57 05981 amoxicill in medicatio n Not available Not available Not available 09/09/2025 723 RxNorm Raisa Tejeda MD [address] [place] [address],[address] [facility], [place], [address] [place] [address] [employer] [facility] 5 10:51:44 19249 methimazo le medicatio n rash mild low 09/12/20252024 6835 RxNorm Not Available [employer] - [employer] - prod 5 08:47:48 69324 potassium chloride medicatio n Not available Not available Not available 09/12/20252024 8591 RxNorm Not Available [employer] - [employer] - prod 5 08:47:48 38774 propranol ol medicatio n Not available Not available high 09/12/20252024 8787 RxNorm Not Available [employer] - [employer] - prod 5 08:47:48 Medications Name Sig Start Date Stop [...] % 18 /min 160.02 cm 98.4 [degF] 437694. 752 g 112/67 mm[Hg] Not Available [facility] - production 11:45:09 Social History None recorded. Functional Status None recorded. Mental Status None recorded. Family History Nothing Reported. Medical History No medical history recorded. Gynecological HistoryNo gynecological history recorded. Obstetrics History GPAL:G 0 P 0 0 0 0 Past Encounters Encounter ID Performer Location Encounter Start Date Encounter Closed Date Diagnosis/Indication Diagnosis SNOMED-CT Code Diagnosis ICD10 Code Diagnosis IMO Codes Diagnosis Note [id number] Tatiana Hartley MD [address] [address] 07/24/2025 17:09:06 07/25/2025 15:42:41 Viral upper respiratory tract infection [id number] J06.9 [id number] 75 year old female being evaluated for [...] assessment and plan as documented by the salesperson burial plots. I provided real-time medical direction for this encounter and was immediatel y available to provide additional phone-base d assistance as needed. We discussed the diagnostic uncertaint y of home visits and associated risks. We discussed the need to seek care urgently/e mergently in the setting of any new or worsening symptoms. [id number] Sean Fish MD [address] [address] 08/01/2025 11:45:05 08/01/2025 16:11:59 Hoarse 05285184 R49.0 [id number] Health Concerns Section Related Observation LastModified by Organization Detai ls LastModified Time None Recorded Concern Status LastModified by Organization Details LastModified Time None Recorded Payers Encounter Date Sequence Insurance Name Policy Number Policy Lyons Covered Member ID Lyons Member ID Guarantor Name 08/01/2025 1 [facility] - DOS ON OR AFTER 2022 - DUAL ELIGIBLE - FPC OPTIONS AND ONE CARE (MEDICARE REPLACEMENT/ADV ANTAGE - HMO) Sharon Nugent [id number] Sharon Nugent Notes Date Note Type Note Provider Name and Address Organization Details Recorded Time 08/01/2025 text/html ROS as noted in the HPI This was a supervised home visit with salesperson burial plots Kevin Yan. CRC Nurse Triage Notes (Shruthi [...] signs of when to seek emergency care. It Software Developer Organization Information for Kevin Yanopal Legal Name: [facility] TransportationAddress : [address] [place] [address], [place] [address], [facility] Peninsulacal Director: Alberto Babcock [facility] No.: [id number] It Software Developer POC Test Results from Kevin Yan Rapid influenza antigen (11:41:04)Flu: - Rapid strep test (11:41:06)Strep: - Rapid COVID antigen (11:41:09)COVID: - ..................... ..................... ..................... ..................... ..................... ..................... ............... It Software Developer Note From Kevin Yan: 75-year-old female main [...] change in voice as well as her container washer machine. Patient thought she might v e had [...] concerns. Patient thanked us for the visit. [facility] [place] Orders: rapid strep group A, throat: Performed rapid SARS CoV 2 Ag, QL IA, respiratory specimen: Performed rapid flu (A+B): Performed ..................... ..................... ..................... ..................... ..................... ..................... ............... [facility] Consulted: Sean Fish ..................... ..................... ..................... ..................... ..................... ..................... ............... Disposition: Fulfilled ..................... ..................... ..................... ..................... ..................... ..................... ............... It Software Developer Note From Kvein Yan:This has been updated by the salesperson burial plots, Kevin Yan, at (08/01/2025 12:23:02) 75-year-old female [...] change in voice as well as her container washer machine. Patient thought she might v e had [...] us for the visit. Sean Fish MD [address] [place] [address],[address], [place], [address], [employer] 08/01/2025 16:08:58 OBGyn Episode No OBEpisode recorded.
--- OUTSIDE RECORDS SUMMARY | 2025-09-15 06:42 | XMS_ITS | Continuity of Care Document ---
Author Organization [employer] [facility], [facility] Address [address] [place] [address] Care Team Providers Care Displayer Name Role Phone TIMOTHY WAKEFIELD Primary Care Provider [phone] HIM CCA OTHER Assessment No assessment recorded. Plan of Treatment Reminders Order Date Submit Date Provider Last Modified By Organization Details Last Modified Time Details Appointments None recorded. Lab rapid flu (A+B) 2024 [facility], [address] [place] [address], [id number] 5 07:58:22 rapid SARS CoV 2 Ag, QL IA, respiratory specimen 2024 [facility], [address] [place] [address], [id number] 5 07:58:22 rapid strep group A, throat [address] [facility], [address] [place] [address], [id number] 5 07:58:23 Referral None recorded. Procedures None [...] Organization Details Recorded Time Lumbosacral radiculopat hy 3209898 Active Magdiel Myles MD [address] [place] [address],[address], [place], [address] , [employer] [facility] 5 16:20:58 Osteoarthri tis of hip 296476832 Channing Myles MD [address] [place] [address],[address], [place], [address], [place] [facility] 5 16:21:35 Osteoarthri tis of left knee joint 7249868735581 09 Channing Myles MD [address] [place] [address],[address], [place], [address], [place] [facility] [employer] 5 16:21:44 Osteoarthri tis of right knee joint 5874391542745 00 Active Magdiel Myles MD [address] [place] [address],[address], [place], [address], [place] [facility] [employer] 16:21:50 Scoliosis of lumbar spine 784190094 Channing Myles MD [address] [place] [address],[address], [place], [address], [place] [facility] [employer] 16:21:58 Resting tremor 13281421 Channing Myles MD [address] [place] [address],[address], [place], [address], [place] [facility] [employer] 16:22:07 Hypothyroid ism 54278926 Active Magdiel Myles MD [address] [place] [address],[address], [place], [address], [place] [facility] [employer] 16:23:04 Asthma 953987571 Active 2020 Magdiel Myles MD [address] [place] [address],[address], [place], [address], [place] [facility] [employer] 16:20:12 Chronic kidney disease stage 2 046605318 Active 2020 Magdiel Myles MD [address] [place] [address],[address], [place], [address], [place] [facility] [employer] 5 16:20:16 Essential hypertensio n 45700586 Active 2020 Magdiel Myles MD [address] [place] [address],[address], [place], [address], [place] [facility] [employer] 16:20:19 Hyperlipide robin 95032701 Active 2020 Magdiel Myles MD [address] [place] [address],[address], [place], [address], [place] [employer], [employer] 16:20:22 Hyperthyroi dism 69526258 Active 2020 Magdiel Myles MD [address] [place] [address],[address], [place], [address], [place] [employer], [employer] 16:20:29 Edema 128788873 Active 2020 Magdiel Myles MD [address] [place] [address],[address], [place], [address], [employer], [employer] 16:21:02 Mixed anxiety and depressive disorder 044089488 Active 2020 Magdiel Myles MD [address] [place] [address],[address], [place], [address], [place] [employer], [employer] 16:21:07 Obstructive sleep apnea syndrome 21220722 Active 2020 Magdiel Myles MD [address] [place] [address],[address], [place], [address], [employer], [employer] 16:21:16 Osteoarthri tis of knee 309522750 Active 2020 Magdiel Myles MD [address] [place] [address],[address], [place], [address], [employer] 16:21:39 Osteoarthri tis of right hip joint 4450666079253 07 Active 2020 Magdiel Myles MD [address] [place] [address],[address], [place], [address], [employer], [employer] 16:21:47 Problem Notes None recorded. Medical Equipment None Reported. Allergies Allergen ID Allergen Name Allergen Category Reaction Reaction Severity Criticality Documentation Date Start Date Code Code System Note Provider Name and Address Organization Details Recorded Time 07962 lisinopri l medicatio n Not available Not available Not available 10/10/2024 80402 RxNorm Not Available [facility] - [employer] 5 11:33:21 08157 Seroquel medicatio n Not available Not available Not available 10/10/2024 35458 RxNorm Not Available [facility] - production 5 11:33:21 58824 Claritin medicatio n Not available Not available Not available 10/10/2024 80530 6 RxNorm Not Available [facility] 5 11:33:21 02669 codeine medicatio n Not available Not available Not available 04/21/2025 2670 RxNorm Not Available [facility] 15:38:18 48149 Zoloft medicatio n Not available Not available Not available 07/24/2025 57421 RxNorm Not Available [facility] - production 15:48:26 97490 loratadin e medicatio n Not available Not available Not available 07/24/2025 66015 RxNorm Not Available [employer] - [employer] - prod 5 17:09:57 59338 quetiapin e medicatio n Not available Not available Not available 07/24/2025 77105 RxNorm Not Available [employer] - [employer] - prod 17:09:57 65815 sertralin e medicatio n Not available Not available Not available 07/24/2025 64063 RxNorm Not Available [employer] - External [employer] - prod 17:09:57 98984 amoxicill in medicatio n Not available Not available Not available 09/09/2025 723 RxNorm Raisa Tejeda MD [address] [place] [address],[address], [place], [address] , [facility] - [employer] 10:51:44 07444 methimazo le medicatio n rash mild low 09/12/20252024 6835 RxNorm Not Available [employer] - External [employer] - prod 08:47:48 77063 potassium chloride medicatio n Not available Not available Not available 09/12/20252024 8591 RxNorm Not Available [employer] - External [employer] - prod 08:47:48 92160 propranol ol medicatio n Not available Not available high 09/12/20252024 8787 RxNorm Not Available [facility] External Data Service - [facility] 08:47:48 Medications Name Sig Start Date Stop [...] Address Organization Details Last Updated DateTime 5 883288. 12 g 16 /min 98.2 [degF] 84 /min 94 % 147/81 mm[Hg] Not Available [facility] - production 21:03:49 Social History None recorded. Functional Status None recorded. Mental Status None recorded. Family History Nothing Reported. Medical History No medical history recorded. Gynecological HistoryNo gynecological history recorded. Obstetrics History GPAL:G 0 P 0 0 0 0 Past Encounters Encounter ID Performer Location Encounter Start Date Encounter Closed Date Diagnosis/Indication Diagnosis SNOMED-CT Code Diagnosis ICD10 Code Diagnosis IMO Codes Diagnosis Note [id number] Tatiana Hartley MD [facility] [address] [address] 07/24/2025 17:09:06 07/25/2025 15:42:41 Viral upper respiratory tract infection 923089114 J06.9 [id number] 75 year old female being evaluated for [...] assessment and plan as documented by the senior editor. I provided real-time medical direction for this encounter and was immediatel y available to provide additional phone-base d assistance as needed. We discussed the diagnostic uncertaint y of home visits and associated risks. We discussed the need to seek care urgently/e mergently in the setting of any new or worsening symptoms. [id number] Sean Fish MD [facility] [address] [address] 08/01/2025 11:45:05 08/01/2025 16:11:59 Hoarse 44446903 R49.0 [id number] CODY ALMANZAR MD [address] [address] 08/04/2025 20:55:51 08/07/2025 16:33:20 Acute exacerbation of chronic obstructive pulmonary disease 480922837 J44.1 [id number] Evaluation in the field was performed by my senior editor colleague, as noted above, I provided real-time [...] lower-extr emity edema remains at baseline. 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 She [...] Lyons Member ID Guarantor Name 08/04/2025 1 [facility] - DOS ON OR AFTER 2022 - DUAL ELIGIBLE - FPC OPTIONS AND ONE CARE (MEDICARE REPLACEMENT/ADV ANTAGE - HMO) Sharon Nugent [id number] Sharon Nugent Notes Date Note Type Note Provider Name and Address Organization Details Recorded Time 08/04/2025 text/html ROS as noted in the [facility] CRC Nurse Triage Notes (Nicolasa Smith): Reason [...] Infections (UTI), Hypothyroidism, Gout PMH Reviewed at 08/04/2025 - :33 Allergies Reviewed at 08/04/2025 - 15:33 Comments: 75 y.o female complains of Breathing [...] signs of when to seek emergency care. Staff Combat Information Center Officer Organization Information for Eddie Rossi Business Legal Name: [facility] Address: [address] [place] [address], [place] [address], Tire Trimmer Hand: Alberto Babcock MD [facility] No.: [id number] Staff Combat Information Center Officer POC Test Results from Eddie Rossi Rapid COVID antigen (22:17:53) COVID: - Rapid influenza antigen (22:17:54) Flu: - Rapid strep test (22:17:54) Strep: - .................... .................... .................... .................... .................... .................... .................... . Staff [employer] Information Center Officer Note From Eddie Rossi: [facility] visit for female patient with complaint of sore throat and shortness of breath. Patient presents at home sitting in recliner. Patient reports hoarseness and cough, presenting in the last few days with some worsening shortness of breath over the last several weeks. 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 Consulted with [facility], Dr. Almanzar, who advised continuing supportive care and monitoring symptoms. Reviewed red flags for ED. Patient education provided. [facility] Lab Orders: rapid flu (A+B): Performed rapid SARS CoV 2 Ag, QL IA, respiratory specimen: Performed rapid strep group A, throat: Performed .................... .................... .................... .................... .................... .................... .................... . [facility] Consulted: Cody Almanzar .................... .................... .................... .................... .................... .................... .................... . Disposition: Fulfilled CODY ALMANZAR MD [address] [facility], [place], [address], [employer] 08/04/2025 22:20:07 OBGyn Episode No OBEpisode recorded.
--- OUTSIDE RECORDS SUMMARY | 2025-09-15 06:43 | XMS_ITS | Patient Health Record ---
Author Organization [facility] Address [address] [place] [address] Care Team Providers Care Record Librarian Name Role Phone Raven Lyons Primary Care Provider Bibi Flores Unavailable [phone] Allergies Allergen (clinical drug ingredient) Drug/Non Drug [...] daily Active metFORMIN HCl Not-Ta lyle Nystatin 512566 UNIT/GM Externally Active Prazosin HCl 2 MG [...] atherosclerosis of arteries of lower limbs (disorder) (75715763756447155 ) Atherosclerosis of artery of both lower extremities (I70.203) Active confirmed Vital Signs Blood pressure diastolic 65 mm Hg 08/04/2025 Height 5ft3in in 08/04/2025 Blood pressure systolic 128 mm Hg 08/04/2025 Weight 243 lbs 08/04/2025 BMI 43.04 kg/m2 08/04/2025 Encounters Encounter Location Date Provider Diagnosis [address] [address] 12/01/2024 Bibi Perica Pain in right toe(s) M79.674 ; Tinea unguium B35.1 ; Pain in left toe(s) M79.675 and Atherosclerosis of artery of both lower extremities I70.[address] [address] 02/14/2025 Bibi Perica Pain in right toe(s) M79.674 ; Tinea unguium B35.1 ; Pain in left toe(s) M79.675 and Atherosclerosis of artery of both lower extremities I70.[address] [address] 08/04/2025 Bibi Perica Pain in right toe(s) M79.674 ; Tinea unguium B35.1 ; Pain in left toe(s) M79.675 and Atherosclerosis of artery of both lower extremities I70.[address] [address] 10/25/2024 Bibi Perica [address] [place] [address] 11/17/2024 Bibi Siddiqi [facility] [address] [place] [address] 04/24/2025 Bibi Siddiqi [facility] [place] [address] [place] [address] 06/23/2025 Bibi Siddiqi Assessments Encounter Date Diagnosis [...] X ray : Foot, right 3V 09/03/2021 07883-LMRSHFD NAIL, 6 OR MORE 09/01/2018 [id number], G3864-TEJLV/INJECT, JOINT/BURSA 1 11/04/2020 Next Appt Details Provider Name:Bibi whitaker, 10/25/2025 02:00:00 PM, [address] [place], [address], Insurance Providers Payer Name Payer Address Payer Phone Subscriber Number Group Number Insured Name Patient Relationship to Insured Coverage Start Date Coverage End Date [facility] CCA SCO Claims [address] [place] [id number] Sharon Nugent Self - patient is the insured Medical (General) History Medical History History ICD Code High blood pressure Cholesterol Anxiety Depression Sciatica asthma Obesity Surgical History Surgery Date(Month/Year) basel Cell 2009 Hospitalization History Reason Date(Month/Year) cellulitis 03/2025 ER- anxiety, dizzy 01/13
--- OUTSIDE RECORDS SUMMARY | 2025-09-15 06:43 | XMS_ITS | Continuity of Care Document ---
Author Organization [employer] - [address] [facility], [place] [email or web address] Medical [facility] Address [address] [place] [address] Care Team Providers Care Molding Utility Worker Name Role Phone TIMOTHY WAKEFIELD Primary Care Provider HIM CCA OTHER Assessment Encounter Date Assessment Date Assessment LastModified by Organization Details LastModified Time 06/16/2025 06/16/2025 Evaluation in the field was performed by my solutions specialist colleague, as noted above, I provided real-time [...] Organization Details Recorded Time Lumbosacral radiculopat hy 0100918 Channing Myles MD [address] [place] [address],[address], [place], [address], [employer] 5 16:20:58 Osteoarthri tis of hip 661774102 Channing Myles MD [address] [place] [address],[address], [place], [address], [employer], [employer] 5 16:21:35 Osteoarthri tis of left knee joint 8499934101236 09 Channing Myles MD [address] [place] [address],[address], [place], [address], [place] [employer], [employer] 5 16:21:44 Osteoarthri tis of right knee joint 2174154376856 00 Channing Myles MD [address] [place] [address],[address], [place], [address], [place] [employer], [employer] 5 16:21:50 Scoliosis of lumbar spine 424846094 Channing Myles MD [address] [place] [address],[address], [place], [address], [employer] [place] [employer], [employer] 5 16:21:58 Resting tremor 19167038 Channing Myles MD [address] [place] [address],[address], [place], [address], [employer] [place] [employer], [employer] 5 16:22:07 Hypothyroid ism 67342420 Channing Myles MD [address] [place] [address],[address], [place], [address], [place] [facility] [employer] 16:23:04 Asthma 821870143 Active 2020 Magdiel Myles MD [address] [place] [address],[address], [place], [address], [place] [facility] [employer] [employer] 16:20:12 Chronic kidney disease stage 2 754547286 Active 2020 Magdiel Myles MD [address] [place] [address],[address], [place], [address], [place] [facility] [employer] [employer] 16:20:16 Essential hypertensio n 47631071 Active 2020 Magdiel Myles MD [address] [place] [address],[address], [place], [address], [place] [facility] [employer] [employer] 16:20:19 Hyperlipide robin 33699781 Active 2020 Magdiel Myles MD [address] [place] [address],[address], [place], [address], [place] [facility] [employer] [employer] 16:20:22 Hyperthyroi dism 35809370 Active 2020 Magdiel Myles MD [address] [place] [address],[address], [place], [address], [place] [facility] [employer] [employer] 16:20:29 Edema 620280217 Active 2020 Magdiel Myles MD [address] [place] [address],[address], [place], [address], [place] [facility] [employer] [employer] 16:21:02 Mixed anxiety and depressive disorder 156895220 Active 2020 Magdiel Myles MD [address] [place] [address],[address], [place], [address], [place] [facility] [employer] 16:21:07 Obstructive sleep apnea syndrome 70272953 Active 2020 Magdiel Myles MD [address] [place] [address],[address], [place], [address], [place] [facility] [employer] [employer] 16:21:16 Osteoarthri tis of knee 210042032 Active 2020 Magdiel Myles MD [address] [facility],[address], [place], [address], [employer] 5 16:21:39 Osteoarthri tis of right hip joint 6015241855788 07 Active 2020 Magdiel Myles MD [address] [facility],[address], [place], [address], [facility] - [employer] 5 16:21:47 Problem Notes None recorded. Medical Equipment None Reported. Allergies Allergen ID Allergen Name Allergen Category Reaction Reaction Severity Criticality Documentation Date Start Date Code Code System Note Provider Name and Address Organization Details Recorded Time 80240 lisinopri l medicatio n Not available Not available Not available 10/10/2024 98545 RxNorm Not Available [facility] 5 11:33:21 56124 Seroquel medicatio n Not available Not available Not available 10/10/2024 37710 RxNorm [facility] Available [facility] 5 11:33:21 86343 Claritin medicatio n Not available Not available Not available 10/10/2024 96654 6 RxNorm Not Available [facility] production 5 11:33:21 24164 codeine medicatio n Not available Not available Not available 04/21/2025 2670 RxNorm Not Available [facility] 5 15:38:18 65293 Zoloft medicatio n Not available Not available Not available 07/24/2025 09311 RxNorm Not Available [facility] production 5 15:48:26 03539 loratadin e medicatio n Not available Not available Not available 07/24/2025 74910 RxNorm Not Available [employer] - [employer] - prod 5 17:09:57 51033 quetiapin e medicatio n Not available Not available Not available 07/24/2025 94373 RxNorm Not Available [employer] External Data Service - prod 5 17:09:57 47492 sertralin e medicatio n Not available Not available Not available 07/24/2025 02893 RxNorm Not Available [employer] - [employer] - prod 17:09:57 34363 amoxicill in medicatio n Not available Not available Not available 09/09/2025 723 RxNorm Raisa Tejeda MD [address] [facility],[address], [place], [address], [facility] - [employer] 10:51:44 72482 methimazo le medicatio n rash mild low 09/12/20252024 6835 RxNorm Not Available [employer] - [employer] - prod 08:47:48 20388 potassium chloride medicatio n Not available Not available Not available 09/12/20252024 8591 RxNorm Not Available [employer] - External Data [employer] - prod 08:47:48 75130 propranol ol medicatio n Not available Not [...] ICD10 Code Diagnosis IMO Codes Diagnosis Note [id number] Trav Ca MD [facility] [address] [address] 05/31/2025 13:51:10 06/01/2025 11:11:34 Pain in right arm 746946947 M79.601 794742 43190 Magdiel Myles MD [address] [address] 06/02/2025 16:17:52 06/03/2025 00:23:07 Injury of upper arm 784783783 S46.911D [id number] 03930 Meghna Correia MD [address] [address] 06/16/2025 17:08:01 06/16/2025 19:40:14 Bilateral lower leg edema 480787537 R60.0 [id number] Health Concerns Section Related Observation LastModified by Organization Detai ls LastModified Time None Recorded Concern Status LastModified by Organization Details LastModified Time None Recorded Payers Encounter Date Sequence Insurance Name Policy Number Policy Lyons Covered Member ID Lyons Member ID Guarantor Name 06/16/2025 1 [facility] - DOS ON OR AFTER 2022 - DUAL ELIGIBLE - RESIDENTIAL OPTIONS AND ONE CARE (MEDICARE REPLACEMENT/ADV ANTAGE - HMO) Sharon Nugent [id number] Sharon Nugent Notes Date Note Type Note Provider Name and Address Organization Details Recorded Time 06/16/2025 text/html ROS as noted in the [facility] CRC Nurse Triage Notes (Katherine Owens): [...] Infections (UTI), Hypothyroidism, Gout PMH Reviewed at 06/16/2025 - 14:51 Allergies Reviewed at 06/16/2025 - 14:51 Comments: 75 y.o female complains of Extremity Swelling RN from [facility] requesting visit BLE swelling redness/warmth to shins - noticed last night - LLE worse than RLE Minimal pain, no open areas/drainage RN reports palpable pedal pulses Denies fever Same symptoms a month ago - dx cellulitis - treated with antibiotics and resolved Last fall in March - reporting hitting knees [id number] Patient reports kidney issues in past - per RN not in medical history Requesting instED visit I provided information on the mobile health provider response time and advised the patient and/or caregiver to monitor reported signs and symptoms. I discussed the warning signs of when to seek emergency care. ..................... ..................... ..................... ..................... ..................... ..................... ............... Payroll Machine Operator Note From Pedro Maurer: S: evaluation of [...] lack of compression stockings P spoke with [facility] no tx at this time pt to monitor area if gets more red painful warm to touch or swollen call for re eval in meantime can try ice and elevation to see if improves red flags discussed ..................... ..................... ..................... ..................... ..................... ..................... ............... [facility] Consulted: Meghna Correia ..................... ..................... ..................... ..................... ..................... ..................... ............... Disposition: Fulfilled Meghna Correia MD [address] [place] [address],[address], [place], [address], [facility] 06/16/2025 17:20:20 OBGyn Episode No OBEpisode recorded.
--- OUTSIDE RECORDS SUMMARY | 2025-09-15 06:43 | XMS_ITS | Data Portability ---
Author Organization [place] - [email or web address] [facility], [facility] Address [address] [place] [address] Care Team Providers Care Dumper [employer] Name Role Phone TIMOTHY WAKEFIELD Primary Care Provider HIM CCA OTHER Assessment Encounter Date Assessment Date Assessment LastModified by Organization Details LastModified Time 08/01/2025 08/01/2025 I have reviewed and agree with the assessment and plan as documented by the security controls assessor. I provided real time medical direction for this encounter and was immediately available to provide additional phone based assistance as needed. History as noted by security controls assessor. Pt with history of Congestive Heart Failure, COPD/Asthma, Coronary Artery Disease, Hypertension, Hyperlipidemia, Urinary Tract Infections (UTI), Hypothyroidism, Gout, and PAD, scheduled for upcoming vascular surgery on her RLE. Pt reports about 10 days of a change in her voice with a hoarse and softer voice. 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 She denies any sore throat or pain with swallowing. No SOB. No neck pain or fevers. Pt is a non smoker. Pt was already seen by [facility] on 07/24 for 4 days of a hoarse voice and was told that it was likely a viral URI. On exam, pt's voice is mildly hoarse, no stridor or drooling. Vitals normal, lungs clear. Exam of throat and neck normal. Rapid Covid/flu/strep all negative. Impression: Pt with a voice change manager the last 10 days, no other significant [...] assessment and plan as documented by the security controls assessor. I provided real-time medical direction for this [...] Appointments None recorded. Lab culture, urine 2024 [place] [facility] (Centralized Electronic Ordering - All Locations), Patient Can Go To The Location Of Their Choice, [id number] 20:05:55 urinalysis, dipstick 2024 [facility], [address] [place] [address], [id number] 12:29:28 BMP, serum or plasma 2024 025 [facility], [address] [place] [address], [id number] 12:29:29 rapid flu (A+B) 2024 025 [facility], [address] [place] [address], [id number] 5 07:58:22 rapid SARS CoV 2 Ag, QL IA, respiratory specimen 2024 025 [facility], [address] [place] [address], [id number] 07:58:22 rapid strep group A, throat 2024 025 [facility], [address] [place] [address], [id number] 5 07:58:23 rapid strep group A, throat 2024 025 [facility], [address] [place] [address], [id number] 5 16:12:29 rapid SARS CoV 2 Ag, QL IA, respiratory specimen 2024 025 [facility], [address] [place] [address], [id number] 5 16:12:45 rapid flu (A+B) 2024 [facility], [address] [place] [address], [id number] 5 16:32:19 rapid SARS CoV 2 Ag, QL IA, respiratory specimen 2024 [facility], [address] [place] [address], [id number] 5 21:56:58 rapid flu (A+B) 2024 [facility], [address] [place] [address], [id number] 21:51:59 Referral None recorded. Procedures None recorded. Surgeries None recorded. Imaging None recorded. Medication Orders sulfamethox azole 800 mg-trimetho prim 160 mg tablet 2024 025 [facility]armacy #[id number], [address] [place], [address], 5 10:49:03 sulfamethox azole 800 mg-trimetho prim 160 mg tablet [address]/Pharmacy #[id number], [address] [place], [address], 5 10:49:19 Patient TargetsNo targets recorded. Patient InstructionsNo instructions recorded. Reason for Referral None Reported. Results Created Date Observation Date Name Description Value Unit Range Abnormal Flag Note LastModifiedBy Organization Detail LastModifiedTime Result Notes None recorded. Problems Name Problem SNOMED Code Status Onset Date Resolution Date Notes Provider Name and Address Organization Details Recorded Time Lumbosacral radiculopat hy 7589652 Channing Myles MD [address] [place] [address],[address], [place], [address], [place] [facility], [employer] 5 16:20:58 Osteoarthri tis of hip 818841541 Channing Myles MD [address] [place] [address],[address], [place], [address], [place] [facility] 5 16:21:35 Osteoarthri tis of left knee joint 3795346317863 09 Channing Myles MD [address] [place] [address],[address], [place], [address], [place] [facility], [employer] 5 16:21:44 Osteoarthri tis of right knee joint 4477369172095 00 Channing Myles MD [address] [place] [address],[address], [place], [address], [place] [facility], [employer] 16:21:50 Scoliosis of lumbar spine 073143703 Channing Myles MD [address] [place] [address],[address], [place], [address], [place] [facility], [employer] 16:21:58 Resting tremor 19277876 Channing Myles MD [address] [place] [address],[address], [place], [address], [place] [facility] 5 16:22:07 Hypothyroid ism 02196436 Channing Myles MD [address] [place] [address],[address], [place], [address], [place] [facility] 16:23:04 Asthma 951617392 Active 2020 Magdiel Myles MD [address] [place] [address],[address], [place], [address], [place] [facility], [employer] 5 16:20:12 Chronic kidney disease stage 2 600785858 Active 2020 Magdiel Myles MD [address] [place] [address],[address], [place], [address], [place] [facility] 16:20:16 Essential hypertensio n 19051163 Active 2020 Magdiel Myles MD [address] [place] [address],[address], [place], [address], [place] [facility] 16:20:19 Hyperlipide robin 70353113 Active 2020 Magdiel Myles MD [address] [place] [address],[address], [place], [address], [place] [facility] 16:20:22 Hyperthyroi dism 64610963 Active 2020 Magdiel Myles MD [address] [place] [address],[address], [place], [address], [place] [facility] 16:20:29 Edema 719643744 Active 2020 Magdiel Myles MD [address] [place] [address],[address], [place], [address], [place] [facility] 16:21:02 Mixed anxiety and depressive disorder 955913070 Active 2020 Magdiel Myles MD [address] [place] [address],[address], [place], [address], [place] [facility] 16:21:07 Obstructive sleep apnea syndrome 94475678 Active 2020 Magdiel Myles MD [address] [place] [address],[address], [place], [address], [place] [facility] 16:21:16 Osteoarthri tis of knee 782327473 Active 2020 Magdiel Myles MD [address] [place] [address],[address], [place], [address], [place] [facility] 16:21:39 Osteoarthri tis of right hip joint 9485795314175 07 Active 2020 Magdiel Myles MD [address] [place] [address],[address], [place], [address], [facility] [employer] 16:21:47 Problem Notes None recorded. Medical Equipment None Reported. Allergies Allergen ID Allergen Name Allergen Category Reaction Reaction Severity Criticality Documentation Date Start Date Code Code System Note Provider Name and Address Organization Details Recorded Time 37116 lisinopri l medicatio n Not available Not available Not available 10/10/2024 39953 RxNorm Not Available [facility] - production 5 11:33:21 76148 Seroquel medicatio n Not available Not available Not available 10/10/2024 92683 RxNorm Not Available [facility] - production 5 11:33:21 12083 Claritin medicatio n Not available Not available Not available 10/10/2024 20868 6 [facility] 11:33:21 39451 codeine medicatio n Not available Not available Not available 04/21/2025 2670 RxNorm Not Available [facility] - production 5 15:38:18 81091 Zoloft medicatio n Not available Not available Not available 07/24/2025 90092 RxNorm Not Available [facility] - production 15:48:26 74887 loratadin e medicatio n Not available Not available Not available 07/24/2025 34662 RxNorm Not Available [facility] - [employer] - prod 5 17:09:57 57218 quetiapin e medicatio n Not available Not available Not available 07/24/2025 02406 RxNorm Not Available [facility] - External Data [employer] - prod 17:09:57 93712 sertralin e medicatio n Not available Not available Not available 07/24/2025 70241 RxNorm Not Available [facility] - External Data [employer] - prod 17:09:57 57548 amoxicill in medicatio n Not available Not available Not available 09/09/2025 723 RxNorm Raisa Tejeda MD [address] [facility],[address], [place], [address], [facility] - [employer] 5 10:51:44 76592 methimazo le medicatio n rash mild low 09/12/20252024 6835 RxNorm Not Available [facility] - [employer] Data [employer] - prod 5 08:47:48 86044 potassium chloride medicatio n Not available Not available Not available 09/12/20252024 8591 RxNorm Not Available [facility] - [employer] - prod 5 08:47:48 91419 propranol ol medicatio n Not available Not [...] /min 16 /min 132/70 mm[Hg] Not Available [facility] 5 17:09:10 Date Recorded Heart rate Oxygen saturation Respiratory rate Body height Body temperature Body weight Systolic And Diastolic Provider Name and Address Organization Details Last Updated DateTime 5 74 /min 96 % 18 /min 160.02 cm 98.4 [degF] 815345. 752 g 112/67 mm[Hg] Not Available [facility] 5 11:45:09 Date Recorded Body weight Respiratory rate Body temperature Heart rate Oxygen saturation Systolic And Diastolic Provider Name and Address Organization Details Last Updated DateTime 5 199268. 12 g 16 /min 98.2 [degF] 84 /min 94 % 147/81 mm[Hg] Not Available [facility] 5 21:03:49 Date Recorded Body temperature Respiratory rate Body height Oxygen saturation Heart rate Body weight Systolic blood pressure Provider Name and Address Organization Details Last Updated DateTime 5 98.6 [degF] 18 /min 160.02 cm 95 % 79 /min 182650. 12 g 128 mm[Hg] Not Available [facility] 5 13:27:50 Date Recorded Body temperature Oxygen saturation Heart rate Respiratory rate Systolic And Diastolic Provider Name and Address Organization Details Last Updated DateTime 5 97.7 [degF] 99 % 75 /min 18 /min 164/94 mm[Hg] Not Available [facility] 5 10:20:31 Social History None recorded. Functional [...] 726 Rebeka Mosquera MD Main - [facility] [address] [place] [address] 12/17/2021 17:53:07 05/29/2022 16:26:35 Dyspnea on exertion 87201621 R06.09 1293 Fortunato Pickett MD Main - [facility] [address] [place] [address] 01/19/2022 13:22:09 05/29/2022 14:39:18 Pain of right thigh 8118924432 26548 M79.651 Patient evaluated for 3 days of right thigh pain. There is no evidence of fluctuance , systemic infection, or deformity. She is able to walk and actually feels better walking. Suspect musculoske letal injury (muscle strain). She will treat conservati vely with tylenol and follow-up with PCP if symptoms do not improve. 3397 Aram Logan MD Main - [address] [address] 05/07/2022 16:21:25 06/12/2022 17:03:03 Edema of lower extremity 122473328 R60.0 Reports longstandi ng history of RLE [...] but no signs of pulmonary edema per security controls assessor. Advised close continued follow-up with outpatient specialist s. 4202 Consuelo Bryson MD [facility] - [address] [address] 06/15/2022 15:57:13 06/17/2022 13:52:04 Pain in lower limb 96595771 M79.606 chronic lymphedema , pain worse R>L [...] symptoms. 4914 [facility] [address] [place] [address] 07/18/2022 14:35:58 07/22/2022 15:58:06 Edema of lower extremity 677652284 R60.0 Non-compli ant with meds. DIscussed with patient who agrees to take 20mg PO Torsemide BID. Discussed red flag symptoms for which to receive higher level of care. 5016 Francisco [facility] [address] [place] [address] 07/22/2022 16:34:57 07/23/2022 12:03:47 Congestive heart failure 47289680 I50.9 5558 Prasad Moore [facility] [address] [place] [address] 08/13/2022 14:14:55 08/15/2022 10:45:39 Low blood pressure 73919699 I95.9 This 72-year-ol d female with a [...] 5986 Trav Ca MD Main - [facility] [address] [place] [address] 08/28/2022 19:27:58 09/01/2022 11:07:10 74055 Raisa [facility]eda [facility] [address] [place] [address] 02/08/2023 13:47:22 02/10/2023 14:37:06 Pain in buttock 461490279 M79.18 Evaluation in the field was performed by my security controls assessor colleague, as noted above, I provided real-time [...] Distension of abdomen caused by intestinal gas 858647364 R14.0 Endorses gas w/o constipati on, no N/V. Wire Cutter abd exam [place]. [address] Tatiana Hartley MD Main - [facility] [address] [place] [address] 05/26/2023 14:40:21 05/27/2023 11:07:30 Intertrigo 40935784 L30.4 73 year old female being evaluated [...] to be used BID x 2 weeks. 86068 Laura Casey MD [facility] - [address] [address] 06/30/2023 19:37:25 06/30/2023 23:07:16 Pruritic rash 94598397 L28.2 30188 Tatiana Hartley MD [facility] - [address] [address] 04/18/2024 15:54:06 04/18/2024 18:02:51 Discoloration of skin 7519628 R23.8 74 year old female being evaluated [...] assessment and plan as documented by the security controls assessor. I provided real-time medical direction for this encounter and was immediatel y available to provide additional phone-base d assistance as needed. We discussed the diagnostic uncertaint y of home visits and associated risks. We discussed the need to seek care urgently/e mergently in the setting of any new or worsening symptoms. 82359 Trav Ca MD Main - [address] [address] 10/10/2024 15:56:35 10/12/2024 18:39:30 Pruritic rash 99193620 L28.2 17971 Trav aC MD Main-[facility] [address] [address] 04/06/2025 14:51:42 04/06/2025 15:57:43 Fall W19.XXXS 2809775 Pain of knee region 1003 474142 M25.561 M25.562 82564896 I did not participat e in the care of this patient. I entered diagnoses and ICD 10 codes for billing purposes based on the assessment and plan- SEGMD: 6 2 Thoracic back pain 32543 8004 M54.6 [id number] 20130 Chanda Flor MD [address] [address] 04/22/2025 10:25:56 04/24/2025 09:17:28 Peripheral edema 087323438 R60.0 09825 Increased frequency of urination 714197689 R35.0 66046 65800 CODY ALMANZAR MD [address] [address] 04/28/2025 19:35:03 04/29/2025 08:53:30 Swelling of bilateral lower limbs 657199099 M79.89 [id number] Evaluation in the field was performed by my security controls assessor colleague, as noted above, I provided real-time [...] ED transfer. An expect was called at [facility] ED Primary care, consider__ _ Dispositio n: We discussed the situation and I recommende d referral to the emergency department . [address]856 Trav Ca MD [address] [address] 05/31/2025 13:51:10 06/01/2025 11:11:34 Pain in right arm 062055902 M79.601 832673 82949 Magdiel Myles MD [facility] [address] [address] 06/02/2025 16:17:52 06/03/2025 00:23:07 Injury of upper arm 244974577 S46.911D 2017915 71568 Meghna Correia MD [address] [address] 06/16/2025 17:08:01 06/16/2025 19:40:14 Bilateral lower leg edema 132806471 R60.0 [id number] 00444 Brigido Antony MD [address] [address] 06/28/2025 10:00:03 06/28/2025 15:06:24 Dermal mycosis 10879679 B36.9 05214 [facility] 113125010 1 01504 27749 Tatiana Hartley MD [address] [address] 07/24/2025 17:09:06 07/25/2025 15:42:41 Viral upper respiratory tract infection 712649244 J06.9 0720601 75 year old female being evaluated for [...] assessment and plan as documented by the security controls assessor. I provided real-time medical direction for this encounter and was immediatel y available to provide additional phone-base d assistance as needed. We discussed the diagnostic uncertaint y of home visits and associated risks. We discussed the need to seek care urgently/e mergently in the setting of any new or worsening symptoms. 60957 Sean Fish MD [address] [address] 08/01/2025 11:45:05 08/01/2025 16:11:59 Hoarse 07200077 R49.0 46646258 96139 CODY ALMANZAR MD [address] [address] 08/04/2025 20:55:51 08/07/2025 16:33:20 Acute exacerbation of chronic obstructive pulmonary disease 284500869 J44.1 684798 Evaluation in the field was performed by my security controls assessor colleague, as noted above, I provided real-time [...] lower-extr emity edema remains at baseline. Her tape controlled machine stitcher has had viral URI symptoms recently. She [...] rapid weight gain, or decreased urine output 80948 Laura Casey MD [facility] ED Medical [address] [address] 08/06/2025 13:27:39 08/07/2025 17:43:24 Eruption 812515729 R21 15127 82386 Raisa Tejeda MD [facility] [address] [address] 09/09/2025 10:20:28 09/11/2025 15:19:41 Urinary symptoms 209140555 R39.9 [id number] Evaluation in the field was performed by my security controls assessor colleague, as noted above, I provided real-time [...] [place] Member ID Guarantor Name 03/03/[address] [facility] - DOS PRIOR TO 2022 - DUAL ELIGIBLE (MEDICARE REPLACEMENT/ADV ANTAGE - HMO) Sharon Nugent [id number] Sharon Nugent 09/09/[address] [facility] - DOS ON OR AFTER 2022 - DUAL ELIGIBLE - INTERMEDIATE OPTIONS AND ONE CARE (MEDICARE REPLACEMENT/ADV ANTAGE - HMO) Sharon Nugent [id number] Sharon Nugent Notes Date Note Type Note [...] Infections (UTI), Hypothyroidism, Gout PMH Reviewed at 07/24/2025:48 Allergies Reviewed at 07/24/2025:48 Comments: 75 y.o [...] signs of when to seek emergency care. Wire Cutter Organization Information for Parminder Maurice [employer] Business Legal Name: [employer]. Address: [address] [place] [address], Cinder Pit Worker: Americo Burgos MD CLIA No.: [id number] Wire Cutter POC Test Results from Parminder Mauricedorys MARTÍNEZ Rapid influenza antigen (17:04:57) Flu: - Rapid COVID antigen (17:04:58) COVID: - ..................... ..................... ..................... ..................... ..................... ..................... ............... Wire Cutter Note From Parminder Maurice: Dispatched to the call address for the [...] conducted and results uploaded to Pts portal. [facility] consulted. Pt provided reassurance. Red flags discussed. ALL times are approx. [facility] Lab Orders: rapid SARS CoV 2 Ag, QL IA, respiratory specimen: Performed rapid flu (A+B): Performed ..................... ..................... ..................... ..................... ..................... ..................... ............... [facility] Consulted: Tatiana Hartley ..................... ..................... ..................... ..................... ..................... ..................... ............... Disposition: Mabel Hartley MD [address] [facility],[address], [place], [address], [employer] [facility] [employer] 07/24/2025 21:08:47 08/01/2025 text/html ROS as noted in the HPI This was a supervised home visit with security controls assessor Kevin Yan. [facility] Nurse Triage Notes (Shruthi Alvarez): Reason For [...] Tract Infections (UTI), Hypothyroidism, GoutPMH Reviewed at 08/01/2025:32Allergies Reviewed at 08/01/2025:32Comments: 75 y.o female complains [...] signs of when to seek emergency care. Wire Cutter Organization Information for Yan Kevin Jenelle Morin Legal Name: [facility] TransportationAddress : [address] [facility], [place] [address], Medical Director: Alberto Babcock [facility] No.: [id number] Wire Cutter POC Test Results from Yuryi Kevin Jenelle MARTÍNEZ Rapid influenza antigen (11:41:04)Flu: - Rapid strep test (11:41:06)Strep: - Rapid COVID antigen (11:41:09)COVID: - ..................... ..................... ..................... ..................... ..................... ..................... ............... Wire Cutter Note From Kevin Yan: 75-year-old female main [...] change in voice as well as her tape controlled machine stitcher. Patient thought she might v e had [...] concerns. Patient thanked us for the visit. [facility] Lab Orders: rapid strep group A, throat: Performed rapid SARS CoV 2 Ag, QL IA, respiratory specimen: Performed rapid flu (A+B): Performed ..................... ..................... ..................... ..................... ..................... ..................... ............... [facility] Consulted: Sean Fish ..................... ..................... ..................... ..................... ..................... ..................... ............... Disposition: Fulfilled ..................... ..................... ..................... ..................... ..................... ..................... ............... Wire Cutter Note From Kevin Yan:This has been updated by the security controls assessor, Kevin Yan, at (08/01/2025 12:23:02) 75-year-old female [...] change in voice as well as her tape controlled machine stitcher. Patient thought she might v e had [...] for the visit. Sean Fish MD [address] [facility],[address], [place], [address], [facility] - [employer] 08/01/2025 16:08:58 08/04/2025 text/html ROS as noted [...] signs of when to seek emergency care. Wire Cutter Organization Information for Eddie Rossi [employer] Business Legal Name: [facility] Address: [address] [place] [address], Cinder Pit Worker: Alberto Babcock MD CLIA No.: [id number] Wire Cutter POC Test Results from Eddie Rossi [employer] Rapid COVID antigen (22:17:53) COVID: - Rapid influenza antigen (22:17:54) Flu: - Rapid strep test (22:17:54) Strep: - ..................... ..................... ..................... ..................... ..................... ..................... ............... Wire Cutter Note From Eddie Rossi: [facility] visit for female patient with complaint of sore throat and shortness of breath. Patient presents at home sitting in recliner. Patient reports hoarseness and cough, presenting in the last few days with some worsening shortness of breath over the last several weeks. patient reports that her BREWER HELPER recently told her she was sick with [...] to be negative for all. Consulted with [facility], Dr. Almnazar, who advised continuing supportive care and monitoring symptoms. Reviewed red flags for ED. Patient education provided. [facility] Lab Orders: rapid flu (A+B): Performed rapid SARS CoV 2 Ag, QL IA, respiratory specimen: Performed rapid strep group A, throat: Performed ..................... ..................... ..................... ..................... ..................... ..................... ............... [facility] Consulted: Cody Almanzar ..................... ..................... ..................... ..................... ..................... ..................... ............... Disposition: Fulfilled CODY ALMANZAR MD [address] [place] [address],[address], [place], [address], [facility] - [employer] 08/04/2025 22:20:07 08/06/2025 text/html [facility] Nurse Triage Notes (Katherine Owens): Reason For Request: Pt reporting a sore on her left leg, which she has had for a few days(longer)>[facility] Patient Reports: History of [...] Hypothyroidism, Gout PMH Reviewed at 08/06/2025 - 11:08 Allergies Reviewed at 08/06/2025 - 11:08 Comments: [...] ..................... ..................... ..................... ..................... ..................... ..................... ............... Wire Cutter Note From Kathleen Rubio: [facility] responds to the listed address for a 75 yof w/ a c/c of skin abrasions. Upon arrival on scene, pt yells through the door to her apartment for [facility] to enter. She is seated just inside the door in a power recliner watching TV. She is generally well-appearing and NAD is observed. She is making eye contact and speaking pleasantly w/ MIH. She tells [facility] she was seen and tested for [...] her current amount of edema as baseline. [facility] obtains vital signs and pt is assessed. BP is umeryu1dg over palp and pt is normotensive, afebrile, and not hypoxic. [facility] chooses to assess lung sounds based [...] streaking is noted. Photos are obtained for [facility] inspection. [facility] contacts [facility] and discusses the above. [facility] feels area is not infected and pt should continue w/ the triple antibiotic and hydrocortisone cream and keep the area clean. [facility] advises pt of C instructions as well as the warning signs of when to seek emergency care. Pt gives her verbal understanding. Pt is left in stable condition. [facility] is clear. Report completed by DURGA Rubio [id number]. ..................... ..................... ..................... ..................... ..................... ..................... ............... [facility] Consulted: Laura Casey ..................... ..................... ..................... ..................... ..................... ..................... ............... Disposition: Mabel Casey MD [address] [facility], [place], [address], [employer] 08/06/2025 13:32:00 09/09/2025 text/html CRC Nurse Triage [...] 16:50 (ET) Allergies Reviewed at 09/08/2025 - :50 (ET) Comments: 75 y.o female complains of [...] for tomorrow. I provided information on the [facility] provider response time and advised the patient and/or caregiver to monitor reported signs and symptoms. I discussed the warning signs of when to seek emergency care. 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 Address: [address] [place] [address], Cinder Pit Worker: Americo Burgos MD CLIA No.: [id number] Wire Cutter POC Test Results from Danilo Larsen Urine [...] Hct: 43% Hb: 14.6g/dL Ammol/L Cartridge Number: [id number] ..................... ..................... ..................... ..................... ..................... ..................... ............... Wire Cutter Note From Danilo Larsen: [facility] the home of a 75-year-old female patient with urinary issues. Patient has had some urinary burning, melodious odor and eight out of 10. Urinary pain for the last three days. Patient was hospitalized two weeks ago for a severe urinary tract infection. 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 Results were sent in to the [facility]. The [facility] was contacted in ordered bloodwork, this was done without incident and blood was run on an istat. Those results were forwarded into the [facility]. Doctor then ordered one tablet of Bactrim be given, and a prescription sent to the patient s pharmacy. Patient was warned of signs and symptoms, and went to call 911 that should things get worse. [facility] Lab Orders: culture, urine: Performed urinalysis, dipstick: Performed BMP, serum or plasma: Performed [facility] Medication Orders: sulfamethoxazole 800 mg-trimethoprim 160 mg tablet: Administered ..................... ..................... ..................... ..................... ..................... ..................... ............... [facility] Consulted: Raisa Tejeda ..................... ..................... ..................... ..................... ..................... ..................... ............... Disposition: Fulfilled Raisa Tejeda MD [address] [facility], [place], [address], [employer] 09/09/2025 12:15:25 OBGyn Episode No OBEpisode recorded.
--- OUTSIDE RECORDS SUMMARY | 2025-09-15 06:43 | XMS_ITS | Data Portability ---
Author Organization [place] [facility] Address [address] [place] [address] Care Team Providers Care Elementary Substitute Teacher Name Role Phone SUSAN ROBISON Primary Care Provider MARLENE FONSECA OTHER LILIBETH SHETH Referring Provider [phone] Assessment Encounter Date Assessment Date Assessment LastModified [...] are intact. No focal neuro deficits, normal foiciz-vi-xrgt, no pronator drift, no gait abnormalities are [...] discomfort is noted with flexion, extension, and ycej-qa-oshn rotation of the lumbar spine is noted. [...] after care of this patient according to [facility] infection prevention protocols. Time On [...] have lumbar injection done from provider in [place]. Pt advised to seek ED with any weakness, numbness, trouble with going to the bathroom, numbness to genital area, or feeling worse. Not available 10/18/2020 14:10:41 11/19/2020 11/19/2020 Overview/History : 70-year-old female with past medical history significant for asthma, CAD, depression, hyperlipidemia, hypertension, hypothyroidism, and chronic back and knee pain, [facility] but new to this provider, presents with [...] and is currently undergoing workup with her air bag buffer and is scheduled for pulmonary function testing. [...] SOB Thank you for your visit with [facility] today. We cannot always find the exact [...] in your condition between 8am-10pm, please call [facility] at [phone] to help navigate your care. Proper Personal Protective Equipment (PPE), including gloves, eye protection, N95 mask, gown, and shoe covers were donned and doffed appropriately and all equipment cleaned using approved technique with germicidal disposable wipes prior to and after care of this patient according to [facility]'s infection prevention protocols. In order [...] after care of this patient according to [facility]'s infection prevention protocols. Brief History: 71 y.o F with pmh asthma, (CAD previous ND) , HTN, HLD,osteoarthriti s ( walker dependent), established with and new to this provider, presents c/o rash, swelling and pain of left foot x 3 weeks. She was evaluated multiple times by her garment examiner for this and was prescribed an antifunal [...] 10 mg tablet 2020 021 INTERFACE [id number] [address] [place], [address], 12:36:51 meloxicam 7.5 mg tablet 2019 020 livan [id number], [address] [place], [address], 12:25:23 Patient TargetsNo targets recorded. Patient Instructions Encounter Date Encounter Id Patient Instructions Last Modified By Organization Details Last Modified Time 02/28/2020 [id number] Back Pain - Discharge Instructions Basic Information: [...] this pain, you can find demonstrations on [employer] Weight loss will help to relieve stress [...] in your condition between 8am-10pm, please call [facility] at [phone] to help navigate your care. nyuzych Not available 02/29/2020 21:39:55 10/18/2020 [id number] Aethon came to your home for evaluation of [...] department. Thank you for your visit with [facility] today. We cannot always find the exact [...] in your condition between 8am-10pm, please call [facility] at [phone] to help navigate your care. Not available 10/18/2020 13:49:28 10/05/2021 [id number] It was great to see you today! Thank you for letting [facility] assist you in your medical needs today. Please present to your Primary Care Physician if your symptoms are not resolving over the next 2-3 days. If you are noticing a change in your symptoms between the hours of 8am and 9pm, and cannot follow up with your PCP please contact [facility] for re-evaluation. Please present to the nearest [...] cell carcinoma completed Armida Ahn NP [address] [place], [address], [place] [facility] 01/02/2021 14:13:06 Imaging Results None recorded. Procedure Notes None recorded. Medical Equipment None Reported. Allergies Allergen ID Allergen Name Allergen Category Reaction Reaction Severity Criticality Documentation Date Start Date Code Code System Note Provider Name and Address Organization Details Recorded Time 436444 Claritin medicatio n Not available Not available Not available 02/28/2020 69840 6 RxNorm DEB GEORGE [address] [place], [address], [place] [facility] 0 15:20:36 993384 lisinopri l medicatio n Not available Not available Not available 02/28/2020 93927 RxNorm DEB GEORGE [address] [place], [address], [place] [facility] 0 15:20:48 421247 Zoloft medicatio n Not available Not available Not available 02/28/2020 09603 RxDEB Koenig [address] [place], [address], [place] [facility] [...] % 180/100 mm[Hg] 186/96 mm[Hg] Not Available [facility] 1 14:17:21 Date Recorded Heart rate Respiratory rate Body temperature Oxygen saturation Systolic And Diastolic Provider Name and Address Organization Details Last Updated DateTime 0 80 /min 16 /min 98.3 [degF] 95 % 148/74 mm[Hg] Not Available [facility] 0 15:23:56 Social History Question Answer Notes LastModified by Organizat ion Details LastModified Time Tobacco Smoking Status Former Smoker Armida Ahn, SUSSY [address] [place], [address], [place] [facility] 01/02/2021 14:11:21 Do You [...] Visiting Friends Or Family Or Going To Mosque Or Club Meetings) 1 Or 2 Times [...] available 2020 14:11:13 Medical History Condition Response Diabetes N Coronary Artery Disease Y Cancer Y Stroke N Depression Y COPD N Asthma Y High Cholesterol Y Pulmonary Embolism N Hypertension Y Kidney Disease N Gynecological HistoryNo gynecological history recorded. Obstetrics History GPAL:G 0 P 0 0 0 0 Past Encounters Encounter ID Performer Location Encounter Start Date Encounter Closed Date Diagnosis/Indication Diagnosis SNOMED-CT Code Diagnosis ICD10 Code Diagnosis IMO Codes Diagnosis Note [id number] DEB GE[facility]GE [facility] [address] [place] [address] 02/28/2020 15:18:48 03/01/2020 20:18:03 Right side sciatica 5802040608 26271 M54.31 [id number] ROGERS UNDERWOOD NP [facility] [address] [place] [address] 10/18/2020 13:31:08 10/19/2020 15:15:23 Right side sciatica 3851967073 13425 M54.31 [id number] DEB SANTOYO [facility] [address] [place] [address] 11/19/2020 12:22:03 11/20/2020 11:10:47 Right side sciatica [id number] 65853 M54.31 Chronic ob structive pulmonary disease 97323595 J44.9 [id number] Armida Ahn NP [facility] [address] [place] [address] 01/02/2021 14:05:49 01/07/2021 07:54:16 Hypertensive disorder 28126769 I10 Overview/H istory: Patient is an alert [...] rule out DVT, patient needs ultrasound STAT. [facility] responded/ EMS escorted patient to [facility] ED for evaluation . Med Rec completed Proper Personal Protective Equipment (PPE), including gloves, eye protection , N95 mask, gown, and shoe covers were donned and doffed yaima luque and all equipment cleaned using approved technique with germicidal disposable wipes prior to and after care of this patient according to [facility] infection prevention protocols. In order to obtain further informatio n and compare any laboratory results/va lues, I have accessed old patient records. This informatio n was pertinent in my medical decision making today. Homans' sign 22634053 R2 9.898 Pain in right knee 11232 57131 86553 M25.561 Dyspnea on exertion 6084 5006 R06.09 [id number] Marcellus woo, SUSSY [facility] [address] [place] [address] 10/05/2021 13:51:57 10/08/2021 23:00:11 Candidiasis of skin 75959044 B37.2 Edema of l ower extremity 177511932 R60.0 Health Concerns Section Related Observation LastModified by Organization Detai ls LastModified Time None Recorded Concern Status LastModified by Organization Details LastModified Time None Recorded Advance Directives Directive N: Payers Insurance Date Sequence Insurance Name Policy Number Policy Lyons Covered Member ID Lyons Member ID Guarantor Name 10/08/2021 1 [facility] - DOS PRIOR TO 2022 - DUAL ELIGIBLE (MEDICARE REPLACEMENT/ADV ANTAGE - HMO) Sharon Nugent [id number] Sharon Nugent 10/18/2020 1 [facility] OPTIONS - DUAL [place]IGIBLE - [place] ([place] - MED[place] REPLACEMENT) Sharon Nugent [id number] Sharon Nugent 11/19/2020 1 [facility] - DOS PRIOR TO 2022 - DUAL ELIGIBLE (MEDICARE REPLACEMENT/ADV ANTAGE - HMO) Sharon Nugent [id number] Sharon Nugent 10/18/2020 1 [place]: [employer] Sharon Nugent [id number] Sharon Nugent 10/18/2020 1 [facility] - DOS PRIOR TO 2022 - DUAL ELIGIBLE (MEDICARE REPLACEMENT/ADV ANTAGE - HMO) Sharon Nugent [id number] Sharon Nugent 02/28/2020 1 *SELF PAY* Sharon Nugent [id number] Sharon Nugent Notes Date Note Type Note [...] bladder function. DEB GEORGE [address], [place], [address], [place] [facility] 02/29/2020 21:40:01 10/18/2020 text/html [...] bathroom. ROGERS UNDERWOOD NP [address], [place], [address], [place] [facility] 10/18/2020 14:10:56 11/19/2020 text/html 70-year-old female with past medical history significant for asthma, CAD, depression, hyperlipidemia, hypertension, hypothyroidism, and chronic back and knee pain, [facility] but new to this provider, presents with [...] and is currently undergoing workup with her air bag buffer and is scheduled for pulmonary function testing. DEB SANTOYO [address], [place], [address], [place] [facility] 11/19/2020 13:18:52 01/02/2021 text/html Patient is an alert 70 year old female who is known to and new to this provider. Patient presents with right knee pain that hurts all around, pain is at a 9 and constant, it kept me from sleeping. No alleviating factors and no aggravating factors. Patient medical history significant for ND 2 years ago, asthma, depression, hyperlipidemia, HTN, hypothyroidism, anxiety, insomnia (uses nightly CPAP), sleep apnea. Armida Ahn NP [address], [place], [address], [place] [facility] 01/02/2021 15:09:38 10/05/2021 text/html 71 y.o F with pmh asthma, (CAD previous ND) , HTN, HLD,osteoarthritis ( walker dependent), established with and new to this provider, presents c/o rash, swelling and pain of left foot x 3 weeks. She was evaluated multiple times by her garment examiner for this and was prescribed an antifunal 2 weeks ago that she hasn't used until last night. She felt that it has helped. She also reports negative foot xrays, and a foot MRI is planned in 3 days. Pt denies fever. She is able to bear weight. Danilo Mota NP [address], [place], [address], [place] [facility] 10/05/2021 15:13:40 OBGyn Episode No OBEpisode recorded.
--- OUTSIDE RECORDS SUMMARY | 2025-09-15 06:43 | XMS_ITS | Continuity of Care Document ---
Author Organization [employer] [facility], [facility] Address [address] [place] [address] Care Team Providers Care Sales And Marketing Agent Name Role Phone TIMOTHY WAKEFIELD Primary Care Provider [phone] HIM CCA OTHER Assessment Encounter Date Assessment Date Assessment LastModified by Organization Details LastModified Time 08/06/2025 08/06/2025 I have reviewed and agree with the assessment and plan as documented by the sales order processor. I provided real-time medical direction for this [...] Organization Details Recorded Time Lumbosacral radiculopat hy [id number] Channing Myles MD [address] [place] [address],[address], [place], [address], [employer] 16:20:58 Osteoarthri tis of hip [id number] Channing Myles MD [address] [place] [address],[address], [place], [address], [employer] 16:21:35 Osteoarthri tis of left knee joint 4946854395924 09 Active Magdiel Myles MD [address] [place] [address],[address], [place], [address], [place] [facility] [employer] 5 16:21:44 Osteoarthri tis of right knee joint 9449349989416 00 Active Magdiel Myles MD [address] [place] [address],[address], [place], [address], [place] [employer] 16:21:50 Scoliosis of lumbar spine 906100845 Active Magdiel Myles MD [address] [place] [address],[address], [place], [address], [place] [employer] 16:21:58 Resting tremor 01514043 Active Magdiel Myles MD [address] [place] [address],[address], [place], [address], [place] [employer] 16:22:07 Hypothyroid ism 71910470 Active Magdiel Myles MD [address] [place] [address],[address], [place], [address], [place] [employer] [employer] 16:23:04 Asthma 440918942 Active 2020 Magdiel Myles MD [address] [place] [address],[address], [place], [address], [place] [employer] 16:20:12 Chronic kidney disease stage 2 116337948 Active 2020 Magdiel Myles MD [address] [place] [address],[address], [place], [address], [place] [employer] 16:20:16 Essential hypertensio n 69787460 Active 2020 Magdiel Myles MD [address] [place] [address],[address], [place], [address], [place] [employer] 5 16:20:19 Hyperlipide robin 89071422 Active 2020 Magdiel Myles MD [address] [place] [address],[address], [place], [address], [place] [employer] [facility] [employer], [employer] 16:20:22 Hyperthyroi dism 04920776 Active 2020 Magdiel Myles MD [address] [place] [address],[address], [place], [address], [place] [employer] [employer] 16:20:29 Edema 220444099 Active 2020 Magdiel Myles MD [address] [place] [address],[address], [place], [address], [place] [employer] - [employer], [employer] 16:21:02 Mixed anxiety and depressive disorder 313936332 Active 2020 Magdiel Myles MD [address] [place] [address],[address], [place], [address], [employer], [employer] 16:21:07 Obstructive sleep apnea syndrome 94774676 Active 2020 Magdiel Myles MD [address] [place] [address],[address], [place], [address], [employer], [employer] 16:21:16 Osteoarthri tis of knee 066442388 Active 2020 Magdiel Myles MD [address] [place] [address],[address], [place], [address], [employer], [employer] 16:21:39 Osteoarthri tis of right hip joint 6212880644034 07 Active 2020 Magdiel Myles MD [address] [place] [address],[address], [place], [address], [employer], [employer] 16:21:47 Problem Notes None recorded. Medical Equipment None Reported. Allergies Allergen ID Allergen Name Allergen Category Reaction Reaction Severity Criticality Documentation Date Start Date Code Code System Note Provider Name and Address Organization Details Recorded Time 00962 lisinopri l medicatio n Not available Not available Not available 10/10/2024 10853 RxNorm Not Available [employer] 11:33:21 14855 Seroquel medicatio n Not available Not available Not available 10/10/2024 34621 RxNorm Not Available [employer] [facility] [employer] 5 11:33:21 99268 Claritin medicatio n Not available Not available Not available 10/10/2024 54606 6 RxNorm Not Available [employer] - [facility] 5 11:33:21 81731 codeine medicatio n Not available Not available Not available 04/21/2025 2670 RxNorm Not Available [facility] - production 5 15:38:18 25082 Zoloft medicatio n Not available Not available Not available 07/24/2025 24385 RxNorm Not Available [facility] - production 15:48:26 20539 loratadin e medicatio n Not available Not available Not available 07/24/2025 38763 RxNorm Not Available [employer] - [employer] - prod 5 17:09:57 64076 quetiapin e medicatio n Not available Not available Not available 07/24/2025 22627 RxNorm Not Available [employer] - [employer] - prod 5 17:09:57 79203 sertralin e medicatio n Not available Not available Not available 07/24/2025 80249 RxNorm Not Available [employer] - prod 5 17:09:57 93668 amoxicill in medicatio n Not available Not available Not available 09/09/2025 723 RxNorm Raisa Tejeda MD [address] [place] [address],[address], [place], [address] [place] [address] - [employer], [employer] 5 10:51:44 05894 methimazo le medicatio n rash mild low 09/12/20252024 6835 RxNorm Not Available [employer] - [employer] - prod 5 08:47:48 58988 potassium chloride medicatio n Not available Not available Not available 09/12/20252024 8591 RxNorm Not Available [employer] - [employer] - prod 08:47:48 27666 propranol ol medicatio n Not available Not available high 09/12/20252024 8787 RxNorm Not Available [employer] - [employer] - prod 08:47:48 [...] /min 160.02 cm 95 % 79 /min 911084. 12 g 128 mm[Hg] Not Available [employer] [employer] 13:27:50 Social History None recorded. Functional Status None recorded. Mental Status None recorded. Family History Nothing Reported. Medical History No medical history recorded. Gynecological HistoryNo gynecological history recorded. Obstetrics History GPAL:G 0 P 0 0 0 0 Past Encounters Encounter ID Performer Location Encounter Start Date Encounter Closed Date Diagnosis/Indication Diagnosis SNOMED-CT Code Diagnosis ICD10 Code Diagnosis IMO Codes Diagnosis Note [id number] Tatiana Hartley MD [address] [address] 07/24/2025 17:09:06 07/25/2025 15:42:41 Viral upper respiratory tract infection 865223284 J06.9 [id number] 75 year old female being evaluated for [...] assessment and plan as documented by the sales order processor. I provided real-time medical direction for this encounter and was immediatel y available to provide additional phone-base d assistance as needed. We discussed the diagnostic uncertaint y of home visits and associated risks. We discussed the need to seek care urgently/e mergently in the setting of any new or worsening symptoms. [id number] Sean Fish MD [address] [address] 08/01/2025 11:45:05 08/01/2025 16:11:59 Hoarse 58691488 R49.0 [id number] SEEMA ALMANZAR MD [address] [address] 08/04/2025 20:55:51 08/07/2025 16:33:20 Acute exacerbation of chronic obstructive pulmonary disease 272429755 J44.1 [id number] Evaluation in the field was performed by my sales order processor colleague, as noted above, I provided real-time [...] lower-extr emity edema remains at baseline. Her general production worker has had viral URI symptoms recently. She [...] rapid weight gain, or decreased urine output [id number] Laura Casey MD [facility] Medical [address] [address] 08/06/2025 13:27:39 08/07/2025 17:43:24 [facility] [id number] R21 57877 Health Concerns Section Related Observation LastModified by Organization Detai ls LastModified Time None Recorded Concern Status LastModified by Organization Details LastModified Time None Recorded Payers Encounter Date Sequence Insurance Name Policy Number Policy Lyons Covered Member ID Lyons Member ID Guarantor Name 08/06/[address] [facility] - DOS ON OR AFTER 2022 - DUAL ELIGIBLE - FDC OPTIONS AND ONE CARE (MEDICARE REPLACEMENT/ADV ANTAGE - HMO) Sharon Nugent [id number] Sharon Nugent Notes Date Note Type Note Provider Name and Address Organization Details Recorded Time 08/06/2025 text/html [facility] Nurse Triage Notes (Katherine Owens): Reason For Request: Pt reporting a sore on her left leg, which she has had for a few days(longer)>[facility] Patient Reports: History of cellulitis, [...] Hypothyroidism, Gout PMH Reviewed at 08/06/2025 - Allergies Reviewed at 08/06/2025 - Comments: 75 y.o female complains of Wound [...] ..................... ..................... ..................... ..................... ..................... ..................... ............... Shrimp Picker Note From Kathleen Rubio: SC6 responds to the listed address for a 75 yof w/ a c/c of skin abrasions. Upon arrival on scene, pt yells through the door to her apartment for [facility] to enter. She is seated just inside the door in a power recliner watching TV. She is generally well-appearing and NAD is observed. She is making eye contact and speaking pleasantly w/ [facility]. She tells [facility] she was seen and tested for COVID/flu [...] her current amount of edema as baseline. [facility] obtains vital signs and pt is assessed. BP is mdaokh8dt over palp and pt is normotensive, afebrile, and not hypoxic. [facility] chooses to assess lung sounds based on [...] streaking is noted. Photos are obtained for [facility] inspection. [facility] contacts [facility] and discusses the above. [facility] feels area is not infected and pt should continue w/ the triple antibiotic and hydrocortisone cream and keep the area clean. [facility] advises pt of C instructions as well as the warning signs of when to seek emergency care. Pt gives her verbal understanding. Pt is left in stable condition. [facility] is clear. Report completed by DURGA Rubio [id number]. ..................... ..................... ..................... ..................... ..................... ..................... ............... [facility] Consulted: Laura Casey ..................... ..................... ..................... ..................... ..................... ..................... ............... Disposition: Mabel Casey MD [address] [place] [address],[address] [facility], [place], [address], [employer] 08/06/2025 13:32:00 OBGyn Episode No OBEpisode recorded.
--- OUTSIDE RECORDS SUMMARY | 2025-09-15 06:43 | XMS_ITS | Data Portability ---
Author Organization [facility] PAIN OFFICE Address [address] [facility],[address] [place] [address] Care Team Providers Care Primary Products Inspectors Name Role Phone TRACY SAINZ Referring Provider [phone] LLUVIA HOOD Primary Care Provider Assessment Encounter [...] for the same . She needs a home delivery driver on the day of the procedure. [email or web address] [...] for the same . She needs a home delivery driver on the day of the procedure. [email or web address] [...] By Organization Details Last Modified Time 02/12/2021 72008 She was advised against bed rest lasting longer than four days and to continue activities as tolerated. [email or web address] Not available 02/12/2021 14:38:08 03/14/2021 10477 She was advised against bed rest lasting [...] care. [email or web address] Not available 03/26/2021 08:56:01 05/22/2021 96992 She was advised against bed rest lasting [...] care. [email or web address] Not available 05/22/2021 15:57:45 06/24/2021 13119 She was advised against bed rest lasting [...] observ ation record ed. [email or web address] [facility] [place] [address] [facility] [address], [place], [address], 07/18/2021 15:51:20 Result Notes None recorded. Problems Name Problem SNOMED Code Status Onset Date Resolution Date Notes Provider Name and Address Organization Details Recorded Time Lumbosacral spondylosis without myelopathy 74618193 Active Balaji ramirez MD [address] , [address], [place], [address], [place] [facility] 13:14:31 Scoliosis of lumbar spine 119891866 Active Balaji ramirez MD [address] , [address], [place], [address], [place] [facility] 9 13:14:43 Osteoarthri tis of left knee joint 9867495537019 09 Active Balaji ramirez MD [address] , [address], [place], [address], [place] [facility] 9 13:14:58 Osteoarthri tis of hip 987818753 Active Balaji ramirez MD [address] , [address], [place], [address], [place] [facility] 13:15:14 Osteoarthri tis of right knee joint 7080955213416 00 Active Balaji ramirez MD [address] , [address], [place], [address], [place] [facility] 13:15:32 Lumbosacral radiculopat hy 8419789 Active Balaji ramirez MD [address] , [address], [place], [address], [place] [facility] 9 08:26:27 Problem Notes None recorded. Procedures Surgical History Date Name Laterality Status Provider Name and Address Organization Details Recorded Time 08/28/20 21 Lumbar Epidural steroid injection under fluoroscopic guidance completed Balaji Rubin MD [address] [facility] , [address], [place], [address], [place] [facility] 08/28/2021 15:34:42 05/22/20 21 Sacroiliac Joint Steroid Injections, using Fluoroscopy completed Balaji Rubin MD [address] [facility] , [address], [place], [address], [place] [facility] 05/22/2021 15:57:03 02/13/20 21 Fluoroscopic Guided Lumbar Facet Steroid Injections of levels completed Balaji Rubin MD [address] [facility] , [address], [place], [address], [place] [facility] 02/12/2021 14:41:01 03/06/20 20 Fluoroscopic Guided Lumbar Facet Steroid Injections of levels completed Balaji Rubin MD [address] [facility] , [address], [place], [address], [place] [facility] 03/07/2020 14:29:59 10/25/19 20 Radiofrequency of Lumbar/Sacral medial branches supplying the facets under fluoroscopic guidance completed Balaji Rubin MD [address] [facility] , [address], [place], [address], [place] [facility] 10/25/2019 16:39:33 05/31/20 19 Fluoroscopic Guided Lumbar Facet Steroid Injections of levels completed Balaji Rubin MD [address] [facility] , [address], [place], [address], [place] - [facility] 06/01/2019 16:30:57 03/08/20 19 Fluoroscopic Guided Lumbar Facet Steroid Injections of levels completed Balaji Rubin MD [address] [facility] [address], [place], [address], [place] - [facility] 03/11/2019 10:43:46 [...] Name and Address Organization Details Recorded Time 64115 Claritin medicatio n Not available Not available Not available 01/17/2019 33641 6 RxNorm Extre am sleep yness Patience fagan, [place] - [facility] 9 11:07:14 90029 lisinopri l medicatio n fever Not available Not available 01/17/2019 01095 RxNorm Drows ey Patience fagan, [place] - [facility] 9 11:07:45 65093 Zoloft medicatio n Not available Not available Not available 01/17/2019 06506 RxNorm Drows yness Patience fagan, [place] - [facility] 9 11:08:24 54414 Seroquel medicatio n Not available Not available Not available 01/17/2019 12580 RxNorm Ptaience fagan, [place] - [facility] 9 11:08:32 44994 codeine medicatio n dry mouth severe Not [...] Available Not Available Not Available Fluzone High-Dose 5807-5091 (PF) 180 mcg/0.5 mL intramuscul ar syringe [...] 94 % 7 163/82 mm[Hg] Princess ramirez [place] - [facility] 12/08/202 1 13:03:28 Social [...] ICD10 Code Diagnosis IMO Codes Diagnosis Note 10664 Balaji Rubin MD PAIN OFFICE [address] [facility] [address] [facility] [place] [address] 01/17/2019 10:31:41 01/17/2019 13:39:38 Lumbosacral spondylosis without myelopathy 22077225 M47.817 Scoliosis of lumbar spine 599039128 M41.87 Osteoarthr itis of left knee joint 2562832501 87228 M17.12 Osteoarthr itis of right knee joint 3077215870 95871 M17.11 Osteoarthritis of hip 23 5308011 M16.11 54204 Balaji Rubin MD [facility] PAIN [facility] [address] [place] [address] 03/08/2019 13:00:02 03/11/2019 11:20:55 Lumbosacral spondylosis without myelopathy 63211258 M47.817 Scoliosis of lumbar spine 752280614 M41.87 Osteoarthr itis of left knee joint 3748958646 87990 M17.12 Osteoarthr itis of right knee joint 4807332309 33172 M17.11 Osteoarthritis of hip 23 7047509 M16.11 76833 Balaji Rubin MD [facility] PAIN OFFICE [address] [place] [address] 04/07/2019 13:03:47 04/08/2019 10:37:06 Lumbosacral spondylosis without myelopathy 35804115 M47.817 Scoliosis of lumbar spine 207984062 M41.87 Osteoarthr itis of left knee joint 5734805150 27528 M17.12 Osteoarthr itis of right knee joint 1593001575 06479 M17.11 Osteoarthritis of hip 23 6560435 M16.11 94041 Balaji Rubin MD PAIN OFFICE [address] [place] [address] 05/31/2019 13:05:43 06/01/2019 16:35:03 Lumbosacral spondylosis without myelopathy 68137763 M47.817 Scoliosis of lumbar spine 345779893 M41.87 Osteoarthr itis of left knee joint 4996217393 79040 M17.12 Osteoarthr itis of right knee joint 1647893705 39572 M17.11 Osteoarthritis of hip 23 9622954 M16.11 44318 Balaji Rubin MD [facility] PAIN OFFICE [address] [place] [address] 06/22/2019 15:45:57 07/04/2019 19:44:22 Lumbosacral spondylosis without myelopathy 84917240 M47.817 Scoliosis of lumbar spine 006566719 M41.87 Osteoarthr itis of left knee joint 4082164201 84758 M17.12 Osteoarthr itis of right knee joint 2252848643 14933 M17.11 Osteoarthritis of hip 23 5125536 M16.11 Lumbosacra l radiculopathy 0900012 M54.17 99566 Balaji Rubin MD PAIN OFFICE [address] [facility] [place] [address] 07/25/2019 13:04:41 07/25/2019 14:47:13 Lumbosacral spondylosis without myelopathy 91790281 M47.817 Scoliosis of lumbar spine 645208250 M41.87 Osteoarthr itis of right knee joint 6163512861 66452 M17.11 Osteoarthr itis of left knee joint 3789133632 09523 M17.12 69457 Balaji Rubin MD PAIN OFFICE [address] [facility] [place] [place] [address] 10/25/2019 10:36:19 10/25/2019 16:52:00 Lumbosacral radiculopathy 4345256 M54.17 Lumbosacra l spondylosis without myelopathy 22230743 M47.817 Scoliosis of lumbar spine 047125726 M41.87 Osteoarthr itis of right knee joint 8916834231 M17.11 Osteoarthr itis of left knee joint 5087134545 02555 M17.12 40516 Balaji Rubin MD [facility] PAIN OFFICE [address] [facility] [place] [place] [address] 12/05/2019 13:32:28 12/05/2019 13:56:08 Lumbosacral radiculopathy 3684326 M54.17 Lumbosacra l spondylosis without myelopathy 90645279 M47.817 Scoliosis of lumbar spine 449411050 M41.87 Osteoarthr itis of right knee joint 7499921757 M17.11 Osteoarthr itis of left knee joint 0607416529 M17.12 79475 Balaji Rubin MD PAIN OFFICE [address] [facility] [place] [place] [address] 03/06/2020 09:46:04 03/07/2020 14:32:58 Lumbosacral spondylosis without myelopathy 61454565 M47.817 Scoliosis of lumbar spine 891964791 M41.87 Osteoarthr itis of left knee joint 8251371710 04752 M17.12 Osteoarthr itis of right knee joint 9249190602 26522 M17.11 Osteoarthritis of hip 23 7972624 M16.11 50153 Balaji Rubin MD [facility] PAIN OFFICE [address] [place] [address] 05/02/2020 10:20:18 05/02/2020 13:58:05 Lumbosacral spondylosis without myelopathy 03797387 M47.817 Scoliosis of lumbar spine 904822023 M41.87 Osteoarthr itis of left knee joint 9603812736 57542 M17.12 Osteoarthr itis of right knee joint 3434182619 69269 M17.11 Osteoarthritis of hip 23 2029101 M16.11 64795 Balaji Rubin MD PAIN OFFICE [address] [place] [address] 02/12/2021 13:58:47 02/12/2021 16:21:03 Lumbosacral spondylosis without myelopathy 21390744 M47.817 Scoliosis of lumbar spine 467277321 M41.87 Osteoarthr itis of left knee joint 0224423529 69836 M17.12 Osteoarthr itis of right knee joint 9073282688 66620 M17.11 Osteoarthritis of hip 23 3535561 M16.11 98378 Balaji Rubin MD [facility] PAIN OFFICE [address] [place] [address] 03/14/2021 09:36:46 03/26/2021 09:29:16 Osteoarthritis of left knee joint 0390239593 43188 M17.12 Osteoarthr itis of right knee joint 1883009217 91595 M17.11 Osteoarthritis of hip 23 5234724 M16.11 Lumbosacra l spondylosis without myelopathy 66197775 M47.817 Scoliosis of lumbar spine 445831002 M41.87 Inflammati on of sacroiliac joint 30728176 M46.1 66035 Balaji Rubin MD [facility] PAIN OFFICE [address] [place] [address] 05/22/2021 11:21:44 05/22/2021 16:00:40 Lumbosacral spondylosis without myelopathy 80613806 M47.817 Scoliosis of lumbar spine 786725148 M41.87 Inflammati on of sacroiliac joint 46449344 M46.1 Osteoarthr itis of left knee joint 3167526255 35665 M17.12 Osteoarthr itis of right knee joint 3779955899 27485 M17.11 Osteoarthritis of hip 23 5266037 M16.11 10223 Balaji Rubin MD [facility] PAIN OFFICE [address] [place] [address] 06/24/2021 14:39:10 06/24/2021 14:52:34 Lumbosacral spondylosis without myelopathy 47081807 M47.817 Scoliosis of lumbar spine 996304051 M41.87 Inflammati on of sacroiliac joint 31061934 M46.1 Osteoarthr itis of left knee joint 2779539168 68831 M17.12 Osteoarthr itis of right knee joint 4587868518 66446 M17.11 Osteoarthritis of hip 23 0828166 M16.11 41452 Balaji Rubin MD [facility] PAIN OFFICE [address] [place] [address] 08/28/2021 13:01:09 08/28/2021 15:37:20 Lumbosacral radiculopathy 2194547 M54.17 Lumbosacra l spondylosis without myelopathy 88910455 M47.817 Scoliosis of lumbar spine 885441125 M41.87 Osteoarthr itis of right knee joint 9625465687 94002 M17.11 Osteoarthr itis of left knee joint 4064321386 57784 M17.12 Inflammati on of sacroiliac joint 82470226 M46.1 Osteoarthritis of hip 23 8495165 M16.11 Health Concerns Section Related Observation LastModified by Organization Detai ls LastModified Time None Recorded Concern Status LastModified by Organization Details LastModified Time None Recorded Advance Directives Directive None Recorded Payers Insurance Date Sequence Insurance Name Policy Number Policy Lyons Covered Member ID Lyons Member ID Guarantor Name 02/11/2021 1 [facility] - DOS PRIOR TO 2022 - DUAL ELIGIBLE (MEDICARE REPLACEMENT/ADV ANTAGE - HMO) Sharon Nugent [id number] Sharon Nugent Notes Date Note Type Note Provider Name and Address Organization Details Recorded Time 02/12/2021 text/html She is here for a right facet joint steroid injection under fluoroscopic guidance Balaji Rubin MD [address] [facility] , [address], [place], [address], [place] [facility] 02/12/2021 [...] or bowel incontinence. Balaji Rubin MD [address] [facility] , [address], [place], [address], [place] - [facility] 03/27/2021 08:29:13 05/22/2021 text/html She is here for a right sacroiliac joint steroid injection under fluoroscopic guidance Balaji Rubin MD [address] [facility] [address], [place], [address], [place] [facility] 05/23/2021 [...] is seeing Dr. Epperson, orthopedic surgeon at [facility] and is having CT scan done. Balaji Rubin MD [address] [facility] , [address], [place], [address], [place] [facility] 06/25/2021 10:34:35 08/28/2021 text/html She is here for a trial of lumbar epidural steroid injection under fluoroscopic guidance. Balaji Rubin MD [address] [facility] , [address], [place], [address], [facility] 08/28/2021 16:19:58 OBGyn Episode No OBEpisode recorded.
[2025-09-15 06:44] LABS: Hematocrit 35.4 % (37.0-47.0); Hemoglobin 10.8 g/dl (12.0-16.0); Imm Gran Abs Auto 0.05 X10*3/uL (0.00-0.03); Imm Gran Pct Auto 0.5 % (0.0-0.4); Lymphocytes Absolute Auto 1.0 X10*3/uL (1.2-4.9); Mean Corpuscular HGB Conc 30.5 g/dl (31.0-35.0); Mean Corpuscular Hemoglobin 25.8 pg (27.0-33.0); Mean Corpuscular Volume 84.5 fL (80.0-98.0); NRBC Abs Auto 0.000 X10*3/uL (0.0-0.012); NRBC Pct Auto 0.0 /100WBC (0.0-0.2); Platelet Count 219 X10*3/uL (160-400); Red Blood Count 4.19 X10*6/uL (4.20-5.50); White Blood Count 9.4 X10*3/uL (4.8-10.8)
--- OUTSIDE RECORDS SUMMARY | 2025-09-15 06:44 | XMS_ITS | Continuity of Care Document ---
Author Organization [employer] [facility], [employer] [facility] Address [address] [place] [address] Care Team Providers Care Risk Mgr Name Role Phone TIMOTHY WAKEFIELD Primary Care Provider HIM CCA OTHER Assessment Encounter Date Assessment Date Assessment LastModified by Organization Details LastModified Time 06/28/2025 06/28/2025 As noted, we wer e called to see this patient regarding concerns of Rash. Evaluation in the field was performed by my division head colleague, as noted above, I provided real-time [...] cream 2024 025 [id number], [address] [place], [address], 5 10:06:16 nystatin 100,000 unit/gram topical cream 2024 025 [id number], [address] [place], [address], 16:17:58 Patient TargetsNo targets recorded. Patient InstructionsNo instructions recorded. Reason for Referral None Reported. Problems Name Problem SNOMED Code Status Onset Date Resolution Date Notes Provider Name and Address Organization Details Recorded Time Lumbosacral radiculopat hy 0812423 Channing Myles MD [address] [place] [address],[address] [place], [address], [place] - Staff Ranker, [employer] 16:20:58 Osteoarthri tis of hip 910044328 Channing Myles MD [address] [place] [address],[address] [facility], [place], [address], [place] - [facility], [employer] 16:21:35 Osteoarthri tis of left knee joint 9134930513639 09 Channing Myles MD [address] [place] [address] [facility], [place], [address], [place] [facility] 16:21:44 Osteoarthri tis of right knee joint 6020058070107 00 Channing Myles MD [address] [place] [address],[address], [place], [address], [place] - [employer] 16:21:50 Scoliosis of lumbar spine 621530079 Channing Myles MD [address] [place] [address] [facility], [place], [address], [place] - [employer] 16:21:58 Resting tremor 66452232 Channing Myles MD [address] [place] [address],[address], [place], [address], [place] - [facility], Emotive 5 16:22:07 Hypothyroid ism 12580302 Active Magdiel Myles MD [address] [place] [address],[address], [place], [address], [place] - [facility] 16:23:04 Asthma 883714671 Active 2020 Magdiel Myles MD [address] [place] [address],[address], [place], [address], [place] [employer] 16:20:12 Chronic kidney disease stage 2 318064181 Active 2020 Magdiel Myles MD [address] [place] [address],[address], [place], [address], [place] [employer] 16:20:16 Essential hypertensio n 72396547 Active 2020 Magdiel Myles MD [address] [place] [address],[address], [place], [address], [place] [employer] 16:20:19 Hyperlipide robin 41537350 Active 2020 Magdiel Myles MD [address] [place] [address],[address], [place], [address], [place] [employer] 16:20:22 Hyperthyroi dism 34268846 Active 2020 Magdiel Myles MD [address] [place] [address],[address], [place], [address], [place] [employer] 16:20:29 Edema 563479269 Active 2020 Magdiel Myles MD [address] [place] [address],[address], [place], [address], [place] - [employer] 16:21:02 Mixed anxiety and depressive disorder 542113409 Active 2020 Magdiel Myles MD [address] [place] [address],[address], [place], [address], [place] - [employer] 16:21:07 Obstructive sleep apnea syndrome 47211844 Active 2020 Magdiel Myles MD [address] [place] [address],[address], [place], [address], [employer] - [facility], Emotive 5 16:21:16 Osteoarthri tis of knee 928384416 Active 2020 Magdiel Myles MD [address] [place] [address],[address], [place], [address], [employer] - [facility], Emotive 5 16:21:39 Osteoarthri tis of right hip joint 5796981517433 07 Active 2020 Magdiel Myles MD [address] [place] [address],[address], [place], [address], [employer] - [facility], [employer] 5 16:21:47 Problem Notes None recorded. Medical Equipment None Reported. Allergies Allergen ID Allergen Name Allergen Category Reaction Reaction Severity Criticality Documentation Date Start Date Code Code System Note Provider Name and Address Organization Details Recorded Time 69876 lisinopri l medicatio n Not available Not available Not available 10/10/2024 54900 RxNorm Not Available [facility] - production 5 11:33:21 52070 Seroquel medicatio n Not available Not available Not available 10/10/2024 82435 RxNorm Not Available [facility] - production 5 11:33:21 15169 Claritin medicatio n Not available Not available Not available 10/10/2024 74122 6 RxNorm Not Available [facility] - production 5 11:33:21 14675 codeine medicatio n Not available Not available Not available 04/21/2025 2670 RxNorm Not Available [facility] - production 5 15:38:18 30400 Zoloft medicatio n Not available Not available Not available 07/24/2025 61125 RxNorm Not Available [facility] - production 5 15:48:26 94153 loratadin e medicatio n Not available Not available Not available 07/24/2025 43589 RxNorm Not Available [employer] - [employer] - prod 5 17:09:57 71800 quetiapin e medicatio n Not available Not available Not available 07/24/2025 34712 RxNorm Not Available juan - [employer] - prod 5 17:09:57 39814 sertralin e medicatio n Not available Not available Not available 07/24/2025 63527 RxNorm Not Available juan - [employer] - prod 5 17:09:57 99601 amoxicill in medicatio n Not available Not available Not available 09/09/2025 723 RxNorm Raisa Tejeda MD [address] [facility],[address], [place], [address], [facility] [employer] 5 10:51:44 75309 methimazo le medicatio n rash mild low 09/12/20252024 6835 RxNorm Not Available juan [employer] - prod 5 08:47:48 42711 potassium chloride medicatio n Not available Not available Not available 09/12/20252024 8591 RxNorm Not Available [employer] Data [employer] - prod 08:47:48 45962 propranol ol medicatio n Not available Not available high 09/12/20252024 8787 RxNorm Not Available juan [employer] Data Service - prod 08:47:48 Medications Name [...] ICD10 Code Diagnosis IMO Codes Diagnosis Note 34022 Trav Ca MD [facility] ED Medical [address] [address] 05/31/2025 13:51:10 06/01/2025 11:11:34 Pain in right arm 821327376 M79.601 817622 27400 Magdiel Myles MD [facility] ED Medical [address] [address] 06/02/2025 16:17:52 06/03/2025 00:23:07 Injury of upper arm 358698233 S46.911D 8734277 61969 Meghna Correia MD [facility] ED Medical [address] [address] 06/16/2025 17:08:01 06/16/2025 19:40:14 Bilateral lower leg edema 499058381 R60.0 [id number] 04065 Brigido Antony MD [address] [address] 06/28/2025 10:00:03 06/28/2025 15:06:24 Dermal mycosis 06203153 B36.9 70527 [facility] 948190848 R21 69414 Health Concerns Section Related Observation LastModified by Organization Detai ls LastModified Time None Recorded Concern Status LastModified by Organization Details LastModified Time None Recorded Payers Encounter Date Sequence Insurance Name Policy Number Policy Lyons Covered Member ID Lyons Member ID Guarantor Name 06/28/2025 1 [facility] - DOS ON OR AFTER 2022 - DUAL ELIGIBLE - [employer] OPTIONS AND ONE CARE (MEDICARE REPLACEMENT/ADV ANTAGE - HMO) Sharon Nugent [id number] Sharon Nugent Notes Date Note Type Note [...] Infections (UTI), Hypothyroidism, Gout PMH Reviewed at 06/27/2025 13:38 Allergies Reviewed at 06/27/2025 13:38 Comments: 75 y.o female complains of Wound [...] a couple of weeks ago prescribed by [employer]- allergic to it so hasn't been using [...] ..................... ..................... ..................... ..................... ..................... ..................... ............... Vertical Roll Operator Note From [place]: Encountered patient seated upright and conscious with SUPERVISOR CONTINGENTS present. Patient reports for approximately one week [...] vision. Pictures of lower extremities uploaded via [employer]. Skin warm, dry and of appropriate color [...] trauma and edema; peripheral pulses present throughout. [facility] contacted: states patients lower left extremity does not appear to be suffering from cellulitis, but will require treatment to clear up. [facility] states they will send a prescription for [...] ..................... ..................... ..................... ..................... ..................... ..................... ............... [facility] Consulted: Brigido Antony ..................... ..................... ..................... ..................... ..................... ..................... ............... Disposition: Fulfilled Brigido Antony MD [address] [facility],[address], [place], [address], Tã Em Bé 06/28/2025 15:05:23 OBGyn Episode No OBEpisode recorded.
[2025-09-15 07:00] LABS: Alanine Aminotransferase 7 U/L (0-31); Albumin Level 3.3 g/dL (3.5-5.0); Alkaline Phosphatase 55 U/L (39-117); Anion Gap 12 (12-20); Aspartate Amino Transferase 20 U/L (5-31); Blood Urea Nitrogen 10 mg/dL (9-16); Calcium 9.4 mg/dL (8.4-10.2); Carbon Dioxide 22 mmol/L (22-29); Chloride 112 mmol/L (96-108); Estimated Glomerular Filt Rate > 60; Potassium 3.9 mmol/L (3.3-5.1); Sodium 142 mmol/L (135-145); Total Protein 5.4 g/dL (6.5-8.0)
== END 2025-09-15 06:39 | disposition home or self-care (01) ==
LOC: HO.MMNH2L 06:38
PROVIDERS: Visit Provider Physician Assistant Medical
DX: E87.6 Hypokalemia (principal); N17.9 Acute kidney failure, unspecified; K57.92 Diverticulitis of intestine, part unspecified, without perforation or abscess without bleeding; Z13.1 Encounter for screening for diabetes mellitus
CPT/HCPCS: 36415; 80053; 83036; 85025